=== PATIENT | female | born 1970 | race Caucasian/White ===

== ENCOUNTER 2016-05-23 21:35 | Emergency (ER) | payer MEDICAID ==
[~2016-05-23] VITALS: Ht 154.9 cm; Wt 65.8 kg
[~2016-05-23 21:35] MED LIST: ALBU17AE23 IH; ALBU17AE3; ALBU17AE3 IH; ALPR2TAB2; ALPR2TAB2 PO; ASP81TEC PO; BENZ100C18 PO; BP MED; BUSP15TA60; BUTA-234 PO; CEFP500T4 PO; CHOL4PAC19 PO; CYCL10TA9 PO; DIVA-20; DOXE150C; FAMO20TA5 PO; FAMO40TA6; HYDR-3720 PO; HYDR-690 PO; HYDR-757 PO; HYOS0.1217 PO; IBUP-1773 PO; LEVO500T69 PO; LIPA1CAP2 PO; LIPA1CAP26 PO; LIPA1CAP4 PO; METH20TA17; METH4TAB PO; MORP30CA15 PO; MORP30TA16 PO; NAPR-243 PO; NAPR500T PO; NEXIUM; NF-ESOM40C; NF-ESOM40C PO; NFCHLORT25 PO; OLN10T PO; OMEP20CA6; OMEP40CA36 PO; ONDA-42 SL; ONDAN4ODT PO; ORPH100T PO; OXYC-109 PO; OXYC10TA7 PO; OXYC1CAP3 PO; OXYC1TAB28 PO; OXYC20TA63 PO; OXYC40TA49 PO; PNT40TEC PO; POTA10CA16 PO; PRD20T PO; PRED20TA PO; PRM25T; PRM25T PO; PROM25SU10 RC; PROP10TA8 PO; PROP20TA23 PO; PROP60CA17 PO; Propanolol; QTP200T PO; SCR1T1; SCR1T1 PO; SULF1TAB35 PO; SULF1TAB38 PO; SUMA100T3 PO; SUMA5SPR NSEACH; TRAM50TA2 PO; TRM50T PO; ZPR40C; ZPR80C; [UNRECOGNIZED DRUG - CODE]; [UNRECOGNIZED DRUG - CODE]; [UNRECOGNIZED DRUG - REMARK]
--- OUTSIDE RECORDS SUMMARY | 2016-05-23 21:39 | XMS REPORT | Continuity of Care Document ---
Author Author [facility] Organization [facility] Address Unknown Phone Unavailable Care Team Providers Care Licensed Dispensing Optician Name Role Phone PCP Unavailable Source Comments Some departments are not documenting in the electronic medical record. If you do not see the information that you expected, contact Release of Information in the Health Information Management department at [phone] for further assistance in locating additional records.[facility] Active Allergies and Adverse Reactions Not on File Current Medications Not on file Active Problems Not on file Social History Tobacco Use Types Packs/Day Years Used Date Never Assessed Plan of Care Health Maintenance Due Date Last Done Comments Physical (Comprehensive) 1975 Exam Pertussis Vaccine 1979 Tetanus Vaccine 1985 Cervical Cancer Screening 1989 Breast Cancer Screening 2008 Influenza Vaccine 01/11/2016 Results from Last 3 Months Not on file
[2016-05-23] MEDS ORDERED: ONDA8TAB12 SL (21:46)
[2016-05-23] MEDS ORDERED: ATEN50TA PO (21:46)
[2016-05-23] MEDS ORDERED: VALA1000 PO (21:46)
[2016-05-23] MEDS ORDERED: ALPR1TAB2 PO (21:46)
[2016-05-23] MEDS ORDERED: LISI40TA PO (21:46)
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
[2016-05-23] MEDS ORDERED: NAPR500T3 PO (22:31)
[2016-05-23] MEDS ORDERED: RX-NAPROXEN (NAPROSYN) 250 MG TAB PPK#4 PO STA (22:31)
[2016-05-23] MEDS ORDERED: RX-NAPROXEN (NAPROSYN) 250 MG TAB PPK#4 PO ONE (22:38)
[2016-05-23 22:45] VITALS: BP 170/92
--- NOTE | 2016-05-24 07:33 | Diagnostic Imaging Report ---
3 views of the left ankle. INDICATION: Fall. FINDINGS: There is a tiny ossific density seen along the undersurface of the medial malleolus noted on the AP view that appears to have corticated margins and is favored to be related to an old injury. No definite acute fracture. No dislocation or radiopaque foreign body. Ankle mortise is normal in configuration. There is medial soft tissue swelling. When compared to 07/25/2014, stable findings are seen. IMPRESSION: No acute process. Dictated by: Dictated on workstation # [id number]
--- NOTE | 2016-05-24 07:38 | Diagnostic Imaging Report ---
AP and frog-lateral views of the left hip. INDICATION: Fall. FINDINGS: No fracture, dislocation or radiopaque foreign body. There are pelvic calcifications likely related to phleboliths. IMPRESSION: Unremarkable exam. Dictated by: Dictated on workstation # [id number]
--- NOTE | 2016-05-24 07:40 | Diagnostic Imaging Report ---
AP view of the pelvis. INDICATION: Fall. FINDINGS: No fracture, dislocation, or radiopaque foreign body. Pelvic calcifications are seen compatible with phleboliths. IMPRESSION: Unremarkable exam. Dictated by: Dictated on workstation # [id number]
--- NOTE | 2016-05-24 07:50 | Diagnostic Imaging Report ---
3 views of the right fourth finger. INDICATION: Fall. Extensive arthritic changes. FINDINGS: There is joint space narrowing and osteophyte formation involving the distal interphalangeal joints of all fingers. There is soft tissue swelling and joint space narrowing with subchondral sclerosis seen at the PIP joint. There is a nondisplaced fracture involving the head of the middle phalanx of the fourth digit. There is also question of a nondisplaced fracture of the distal aspect of the base of the middle phalanx of the fourth digit. No radiopaque foreign body. IMPRESSION: 1. Nondisplaced fracture along the radial aspect of the head of the middle phalanx in the right ring finger. There is question of another fracture along the base of the middle phalanx as well dorsally. 2. Prominent arthritic changes with soft tissue swelling around the PIP joint of the right fourth finger could be arthritic or related to injury. The fracture in the middle phalanx of the right ring finger was seen by Dr. Cunningham in the ER. Dictated by: Dictated on workstation # [id number]
--- NOTE | 2016-05-24 07:52 | Diagnostic Imaging Report ---
3 views of the lumbar spine. INDICATION: Fall. FINDINGS: There is a compression fracture at L1 vertebral body with 20% vertebral body height loss. This is similar to CT lumbar spine from 11/05/2013. There is no new compression fracture. The alignment of the posterior spinal line is satisfactory. The disc heights are preserved. The sacroiliac joints have normal alignment. There are mild anterior osteophytes seen around the thoracolumbar junction. Surgical clips in the upper right abdomen seen. IMPRESSION: Chronic L1 compression fracture. Dictated by: Dictated on workstation # [id number]
== END 2016-05-23 22:45 | disposition home or self-care (01) ==
LOC: EDUNIT# 21:35 → ER 21:36
DX: S62.644A Nondisplaced fracture of proximal phalanx of right ring finger, initial encounter for closed fracture (principal); S93.402A Sprain of unspecified ligament of left ankle, initial encounter; S39.012A Strain of muscle, fascia and tendon of lower back, initial encounter; I10 Essential (primary) hypertension; J44.9 Chronic obstructive pulmonary disease, unspecified; F17.210 Nicotine dependence, cigarettes, uncomplicated; W10.9XXA Fall (on) (from) unspecified stairs and steps, initial encounter; Y92.009 Unspecified place in unspecified non-institutional (private) residence as the place of occurrence of the external cause; Y99.8 Other external cause status
CPT/HCPCS: 72100; 72170; 73140; 73502; 73610

== ENCOUNTER → 2016-07-19 | Outpatient (CLI) | payer MEDICAID ==
[~2016-07-19] MED LIST changes: +ALPR1TAB2 PO; +ATEN50TA PO; +LISI40TA PO; +NAPR500T3 PO; +ONDA8TAB12 SL; +VALA1000 PO
--- OUTSIDE RECORDS SUMMARY | 2016-07-19 08:09 | XMS REPORT | Continuity of Care Document ---
Author Author [facility] Organization [facility] Address Unknown Phone Unavailable Care Team Providers Care Parking Control Officer Name Role Phone PCP Unavailable Source Comments Some departments are not documenting in the electronic medical record. If you do not see the information that you expected, contact Release of Information in the Health Information Management department at [phone] for further assistance in locating additional records.[facility] Active Allergies and Adverse Reactions [...]
[2016-07-19 08:39] LABS: BASOPHILS # (AUTO) 0.1 10^3/uL (0.0-0.1); BASOPHILS % (AUTO) 1 % (0-10); EOSINOPHILS # (AUTO) 0.1 10^3/uL (0.0-0.3); EOSINOPHILS % (AUTO) 1 % (0-10); LYMPHOCYTES # (AUTO) 4.3 X 10^3 (1.0-4.0); LYMPHOCYTES % (AUTO) 40 % (12-44); MEAN CORPUSCULAR HEMOGLOBIN 32 PG (25-34); MEAN CORPUSCULAR HGB CONC 34 G/DL (32-36); MEAN CORPUSCULAR VOLUME 93 FL (80-99); MEAN PLATELET VOLUME 9.7 FL (7.4-10.4); MONOCYTES # (AUTO) 0.9 X 10^3 (0.0-1.0); MONOCYTES % (AUTO) 8 % (0-12); NEUTROPHILS # (AUTO) 5.5 X 10^3 (1.8-7.8); NEUTROPHILS % (AUTO) 51 % (42-75); PLATELET COUNT 279 10^3/uL (130-400); RED BLOOD COUNT 4.88 10^6/uL (4.35-5.85); WHITE BLOOD COUNT 10.8 10^3/uL (4.3-11.0)
[2016-07-19 09:02] LABS: ALANINE AMINOTRANSFERASE 77 U/L (0-55); ALBUMIN 3.7 G/DL (3.2-4.5); ANION GAP 7 MMOL/L (5-14); ASPARTATE AMINO TRANSFERASE 57 U/L (5-34); BILIRUBIN,TOTAL 0.8 MG/DL (0.1-1.0); BLOOD UREA NITROGEN 16 MG/DL (7-18); BUN/CREATININE RATIO 21; CALCIUM 8.5 MG/DL (8.5-10.1); CARBON DIOXIDE 26 MMOL/L (21-32); CHLORIDE 105 MMOL/L (98-107); CHOLESTEROL 105 MG/DL (< 200); CREATININE SERUM 0.75 MG/DL (0.60-1.30); DIRECT LDL 54 MG/DL (1-129); GFR ESTIMATED > 60; GLUCOSE 107 MG/DL (70-105); POTASSIUM 4.2 MMOL/L (3.6-5.0); SODIUM 138 MMOL/L (135-145); TOTAL PROTEIN 7.5 G/DL (6.4-8.2); TRIGLYCERIDES 62 MG/DL (<150); VLDL CHOLESTEROL 12 MG/DL (5-40)
[2016-07-19 09:10] LABS: BAND NEUTROPHILS 0 %; BASOPHILS % (MANUAL) 0 %; EOSINOPHILS % (MANUAL) 0 %; LYMPHOCYTES % (MANUAL) 35 %; NEUTROPHILS % (MANUAL) 49 %; REACTIVE LYMPHOCYTES 12 %
== END ==
LOC: LAB 08:05
PROVIDERS: ATTEND Family Medicine
DX: I10 Essential (primary) hypertension (principal); M06.9 Rheumatoid arthritis, unspecified
CPT/HCPCS: 36415; 80053; 80061; 85007; 85027; 86430

== ENCOUNTER 2016-11-11 14:20 | Emergency (ER) | payer MEDICAID ==
[~2016-11-11] VITALS: Ht 154.9 cm; Wt 72.6 kg
[2016-11-11] MEDS ORDERED: NS IV 1000 ML 1,000 ML IV SCH (14:30)
[2016-11-11] MEDS ORDERED: diphenhydrAMINE 50 MG/ML INJ (BENADRYL) IVP ONE (14:30)
[2016-11-11] MEDS ORDERED: KETOROLAC 30 MG/ML VIAL IVP ONE (14:30)
[2016-11-11] MEDS ORDERED: PROCHLORPERAZINE 10 MG/2ML INJ (COMPAZINE) IV ONE (14:30)
--- NOTE | 2016-11-11 14:32 | ED Headache ---
General Stated Complaint: MIGRAINE Source: patient Exam Limitations: no limitations History of Present Illness Time seen by provider: 14:30 Initial Comments To ER with a left frontal headache for the past 3-4 days. No fevers or chills. No head injury. No neck pain. She does have a history of migraines and this feels similar to those. However, she does state that her blood pressure has been a little high in the 180/120 range. Timing/Duration: constant Severity/Quality: moderate Location: frontal Prior Headaches/Recent Trauma: occasional headaches Modifying Factors: worse with exposure to light Associated Symptoms: nausea/vomiting Allergies and Home Medications Allergies Coded Allergies: methotrexate (Unverified Allergy, Severe, SEIZURE, 12/25/09) nitrofurantoin (Unverified Allergy, Mild, 09/26/08) ziprasidone (Unverified Allergy, Mild, 08/23/09) aripiprazole (Verified Adverse Reaction, Intermediate, TONGUE SWELLING, ) Home Medications Alprazolam 1 Mg Tablet, 1 MG PO BID PRN for ANXIETY, (Reported) Atenolol 50 Mg Tablet, 50 MG PO DAILY, #30 (Reported) Lisinopril 40 Mg Tablet, 40 MG PO DAILY, #30 (Reported) Naproxen 500 Mg Tablet, 500 MG PO BID PRN for PAIN, #30 Prescribed by: HONORIO AGEE on 04/18/16 1601 Naproxen 500 Mg Tablet, 500 MG PO BID, #20 Prescribed by: KRIS WHALEN on 05/23/16 2231 Omeprazole 40 Mg Capsule.dr, 40 MG PO DAILY, #10 Prescribed by: HONORIO AGEE on 04/18/16 1601 Ondansetron HCl 8 Mg Tablet, 8 MG SL PRN PRN for NAUSEA, #30 (Reported) Valacyclovir HCl 1,000 Mg Tablet, 1,000 MG PO DAILY, #30 (Reported) Constitutional: see HPI Eyes: No Symptoms Reported Ears, Nose, Mouth, Throat: no symptoms reported Cardiovascular: no symptoms reported Genitourinary: no symptoms reported Musculoskeletal: no symptoms reported Skin: no symptoms reported Psychiatric/Neurological: See HPI, Headache Past Uewjuvp-Atnkpj-Vddvwo Hx Patient Social History Type Used: Cigarettes Recent Foreign Travel: No Contact w/Someone Who Travel: No Recent Hopitalizations: No Immunizations Up To Date Tetanus Booster (TDap): More than 5yrs PED Vaccines UTD: No Date of Influenza Vaccine: May 05, 2014 Seasonal Allergies Seasonal Allergies: No Surgeries HX Surgeries: Yes Surgeries: Adenoidectomy, Breast, Cardiac, Gallbladder, 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, Oophorectomy, Tonsillectomy, Vascular Surgery Respiratory Hx Respiratory Disorders: Yes (SPONTANEOUS RIGHT PNEUMOTHORAX) Respiratory Disorders: Pneumonia, Chronic Bronchitis, COPD Cardiovascular Hx Cardiac Disorders: Yes Cardiac Disorders: Hypertension Neurological Hx Neurological Disorders: Yes Neurological Disorders: Concussion, Headaches /Migraines, Seizure Disorder, Stroke, Traumatic Brain Injury 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 System Hx 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 Disorders: No Sexually 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 Disease: 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 Genitourinary Hx Genitourinary Disorders: Yes Genitourinary Disorders: Bladder Infection, Kidney Stones Gastrointestinal Hx Gastrointestinal Disorders: Yes (HEPATITIS C --NO TREATMENT) Gastrointestinal Disorders: Gastroesophageal Reflux, Liver Disease/Jaundice, Chronic Constipation, Pancreatitis, Chronic Diarrhea, Hepatitis, Ulcer Musculoskeletal Hx Musculoskeletal Disorders: Yes Musculoskeletal Disorders: Degenerate Disk Disease, Arthritis, Fibromyalgia, Rheumatoid Arthritis, Back Injury, Chronic Back Pain, Fractures Endocrine Hx Endocrine Disorders: No HEENT HX ENT Disorders: Yes (TEETH REMOVED) Cancer Hx Cancer: No Psychosocial Hx Psychiatric Problems: Yes Behavioral Health Disorders: Anxiety, Bipolar, Depression Integumentary HX Skin/Integumentary Disorder: No Blood Transfusions Hx Blood Disorders: No Physical Exam Vital Signs Vital Sign - Last 12Hours 11/11/16 14:42 Temp 98.1 Pulse 101 Resp 16 B/P (MAP) 180/104 Pulse Ox 94 Capillary Refill : General Appearance: WD/WN, no apparent distress HEENT: PERRL/EOMI, normal ENT inspection Neck: non-tender, full range of motion Cardiovascular: regular rate, rhythm, no murmur Respiratory: normal breath sounds, no respiratory distress, no accessory muscle use Gastrointestinal: normal bowel sounds, non tender, soft Extremities: normal range of motion, non-tender Psychiatric: alert, oriented x 3 Crainal Nerves: normal hearing, normal speech, PERRL Motor/Sensory: no motor deficit, no sensory deficit Skin: normal color, warm/dry Progress/Results/Core Measures Results/Orders My Orders Orders - HONORIO AGEE APRN Ct Head Wo (11/11/16 14:28) Saline Lock/Iv-Start (11/11/16 14:28) Ns Iv 1000 Ml (Sodium Chloride 0.9%) (11/11/16 14:30) Ketorolac Injection (Toradol Injection) (11/11/16 14:30) Diphenhydramine Injection (Benadryl Inje (11/11/16 14:30) Prochlorperazine Injection (Compazine In (11/11/16 14:30) Clonidine Tablet (Catapres Tablet) (11/11/16 14:45) Medications Given in ED Current Medications Medications Dose Ordered Sig/Rene Route Start Time Stop Time Status Last Admin Dose Admin Clonidine HCl 0.2 mg ONCE ONCE PO 11/11/16 14:45 11/11/16 14:46 DC 11/11/16 15:00 0.2 MG Diphenhydramine HCl 25 mg ONCE ONCE IVP 11/11/16 14:30 11/11/16 14:31 DC 11/11/16 15:07 25 MG Ketorolac Tromethamine 30 mg ONCE ONCE IVP 11/11/16 14:30 11/11/16 14:31 DC 11/11/16 15:00 30 MG Prochlorperazine Edisylate 5 mg ONCE ONCE IV 11/11/16 14:30 11/11/16 14:31 DC 11/11/16 15:00 5 MG Vital Signs/I&O Vital Sign - Last 12Hours 11/11/16 14:42 Temp 98.1 Pulse 101 Resp 16 B/P (MAP) 180/104 Pulse Ox 94 Diagnostic Imaging Diagonstic Imaging: CT Comments NAME: TRAVIS MOISE [facility] REC#: [id number] PT STATUS: REG ER : 1970 PHYSICIAN: HONORIO AGEE LOCOMOTIVE CRANE ENGINEER ADMIT DATE: 11/11/16/ER Signed Date of Exam:11/11/16 CT HEAD WO PROCEDURE: CT head without contrast. TECHNIQUE: Multiple contiguous axial images were obtained through the brain without the use of intravenous contrast. INDICATION: Severe headache. FINDINGS: There is encephalomalacia in the posterior right frontal region and adjacent portion of the right basal ganglia, suggestive of an old right MCA distribution infarct. There is no intracranial hemorrhage, edema, or mass effect. No hydrocephalus. No extra-axial fluid collection is seen. The calvarium and orbits appear unremarkable. A minimal amount of secretions is seen in the maxillary sinuses of uncertain significance. IMPRESSION: No acute process. Dictated by: Dictated on workstation # [id number] Dict: 11/11/16 1456 Trans: 11/11/16 1506 [id number] Interpreted by: ARIEL CHACON MD Electronically signed by: ARIEL CHACON MD 11/11/16 1506 Departure Impression Impression: Primary Impression: Headache Additional Impression: Hypertension Disposition: 01 HOME, SELF-CARE Condition: Improved Departure-Patient Inst. Decision time for Depature: 14:57 Referrals: MILLICENT BARNEY DO (PCP) Primary Care Physician ALBERT TIAN MD (Family) Primary Care Physician Patient Instructions: Headache, Adult (DC) Add. Discharge Instructions: 1. See your doctor next week 2. Return to ER for any worsening symptoms 3. HONORIO AGEE APRN Nov 11, 2016 14:32
[2016-11-11] MEDS ORDERED: cloNIDine 0.2 MG (CATAPRES) TAB PO ONE (14:45)
--- NOTE | 2016-11-11 15:06 | Diagnostic Imaging Report ---
PROCEDURE: CT head without contrast. TECHNIQUE: Multiple contiguous axial images were obtained through the brain without the use of intravenous contrast. INDICATION: Severe headache. FINDINGS: There is encephalomalacia in the posterior right frontal region and adjacent portion of the right basal ganglia, suggestive of an old right MCA distribution infarct. There is no intracranial hemorrhage, edema, or mass effect. No hydrocephalus. No extra-axial fluid collection is seen. The calvarium and orbits appear unremarkable. A minimal amount of secretions is seen in the maxillary sinuses of uncertain significance. IMPRESSION: No acute process. Dictated by: Dictated on workstation # [id number]
[2016-11-11 15:50] VITALS: BP 134/65
--- OUTSIDE RECORDS SUMMARY | 2016-11-13 14:51 | XMS REPORT | Continuity of Care Document ---
Author Author [facility] Organization [facility] Address Unknown Phone Unavailable Care Team Providers Care Medical Technologist Chemistry Name Role Phone PCP Unavailable Source Comments Some departments are not documenting in the electronic medical record. If you do not see the information that you expected, contact Release of Information in the Health Information Management department at [phone] for further assistance in locating additional records.[facility] Active Allergies and Adverse Reactions Not on File Current Medications Not on file Active Problems Not on file Social History Tobacco Use Types Packs/Day Years Used Date Never Assessed Plan of Care Health Maintenance Due Date Last Done Comments Physical (Comprehensive) 1975 Exam Pertussis Vaccine 1979 Tetanus Vaccine 1985 Cervical Cancer Screening 1989 Breast Cancer Screening 2008 Influenza Vaccine 01/10/2017 Results from Last 3 Months Not on file
--- OUTSIDE RECORDS SUMMARY | 2016-11-13 14:52 | XMS REPORT ---
Author LUZMARIA Soto [facility] [employer] Address Unknown Phone Unavailable Care Team Providers Care Estate Manager Name Role Phone LUZMARIA SUÁREZ CP Unavailable Allergies, Adverse Reactions, Alerts Substance Reaction Event Type Macrobid Info Not Available Drug Allergy Problems Problem Type Condition Code Onset Dates Condition Status Assessment Chronic hepatitis C B18.2 Active Problem Methamphetamine abuse F15.10 Active Assessment Essential hypertension I10 Active Problem Essential hypertension I10 Active Problem Chronic hepatitis C B18.2 Active Problem Arthralgia, unspecified joint M25.50 Active Problem Anxiety F41.9 Active Problem 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 Active Problem Bilateral low back pain, with sciatica presence unspecified M54.5 Active Problem Chronic obstructive pulmonary disease, unspecified COPD type J44.9 Active Assessment Simple chronic bronchitis J41.0 Active Assessment Methamphetamine abuse F15.10 Active Assessment Anxiety F41.9 Active Assessment Chronic obstructive pulmonary disease, unspecified COPD type J44.9 Active Assessment Hemorrhoids, unspecified hemorrhoid type K64.9 Active Assessment Arthralgia, unspecified joint M25.50 Active Medications Medication Code System Code Instructions Start Date End Date Status Dosage Anusol-HC [facility] [address]-50 2.5 % Rectal 4 times a day 1 application to affected area Proventil HFA [facility] [id number] 108 (90 Base) MCG/ACT Inhalation every 4 hrs November 30, 2015 2 puffs as needed Lisinopril [facility] [address]-28 40 mg Orally Once a day November 30, 2015 1 tablet BusPIRone HCl [facility] [address]-81 15 MG Orally Twice a day October 13, 2014 1 tablet Atenolol [facility] [address]-88 50 mg Orally Once a day November 30, 2015 1 tablet Procedures Procedure Coding System Code Date DRUG SCREEN NON TLC DEVICES CPT-4 22126 November 30, 2015 Office Visit, Est Pt., Level 4 CPT-4 57274 November 30, 2015 CHEST X-RAY CPT-4 68212 November 30, 2015 Vital Signs Date/Time: November 30, 2015 Cardiac Monitoring Heart Rate 90 bpm Weight 160 lbs Height 60 in Blood Pressure Diastolic 100 mmHg Blood Pressure Systolic 179 mmHg Results No Known Results Summary Purpose [employer]ClinicalWorks Submission
--- OUTSIDE RECORDS SUMMARY | 2016-11-13 14:52 | XMS REPORT ---
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
--- OUTSIDE RECORDS SUMMARY | 2016-11-13 14:52 | XMS REPORT ---
Author Author KIMBERLYN MOISE Organization [employer] Address Unknown Phone Unavailable Care Team Providers Care Photographer'S Model Name Role Phone KIMBERLYN MOISE CP Unavailable Allergies No Known Allergies Problems Problem Type Condition Code Onset Dates Condition Status Problem Methamphetamine abuse F15.10 Active Problem Essential hypertension I10 Active Problem Chronic hepatitis C B18.2 Active Problem Arthralgia, unspecified joint M25.50 Active Problem Anxiety F41.9 Active Problem 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 Active Problem Bilateral low back pain, with sciatica presence unspecified M54.5 Active Problem Chronic obstructive pulmonary disease, unspecified COPD type J44.9 Active Medications No Known Medications Vital Signs Date/Time: November 30, 2015 Blood Pressure Systolic 176 mmHg Cardiac Monitoring Heart Rate 108 bpm Height 60 in Blood Pressure Diastolic 122 mmHg Results No Known Results Summary Purpose eClinicalWorks Submission
--- OUTSIDE RECORDS SUMMARY | 2016-11-13 14:52 | XMS REPORT ---
Author Author ALBERT TIAN Organization [employer] Address Unknown Phone Unavailable Care Team Providers Care Medical Clerical Assistant Name Role Phone ALBERT TIAN CP Unavailable [...] Lumbago 724.2 Active Medications No Known Medications Procedures Procedure Coding System Code Date GLUCOSE BLOOD TEST CPT-4 65939 Feb 21, 2015 Results Name Result Date Reference Range Unit Abnormality Flag GLUCOSE FINGERSTICK (IN HOUSE) Summary Purpose eClinicalWorks Submission
== END 2016-11-11 15:50 | disposition home or self-care (01) ==
LOC: EDUNIT# 14:20 → ER 14:22
DX: G43.909 Migraine, unspecified, not intractable, without status migrainosus (principal); I10 Essential (primary) hypertension; F31.9 Bipolar disorder, unspecified; F41.9 Anxiety disorder, unspecified; M47.9 Spondylosis, unspecified; K21.9 Gastro-esophageal reflux disease without esophagitis; K59.09 Other constipation; K52.9 Noninfective gastroenteritis and colitis, unspecified; J44.9 Chronic obstructive pulmonary disease, unspecified; Z90.89 Acquired absence of other organs; Z86.73 Personal history of transient ischemic attack (TIA), and cerebral infarction without residual deficits; Z90.710 Acquired absence of both cervix and uterus; Z90.49 Acquired absence of other specified parts of digestive tract
CPT/HCPCS: 70450; 96361; 96374; 96375

== ENCOUNTER 2016-12-04 13:21 | Emergency (ER) | payer MEDICAID ==
[~2016-12-04] VITALS: Ht 154.9 cm; Wt 74.8 kg
[2016-12-04 14:16] VITALS: BP 128/70
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
== END 2016-12-04 14:16 | disposition home or self-care (01) ==
LOC: EDUNIT# 13:21 → ER 13:24
DX: Z45.2 Encounter for adjustment and management of vascular access device (principal); F31.9 Bipolar disorder, unspecified; F41.9 Anxiety disorder, unspecified; M47.9 Spondylosis, unspecified; M06.9 Rheumatoid arthritis, unspecified; K21.9 Gastro-esophageal reflux disease without esophagitis; B19.20 Unspecified viral hepatitis C without hepatic coma; G43.909 Migraine, unspecified, not intractable, without status migrainosus; G40.909 Epilepsy, unspecified, not intractable, without status epilepticus; J44.9 Chronic obstructive pulmonary disease, unspecified; Z90.89 Acquired absence of other organs; Z98.890 Other specified postprocedural states; Z86.73 Personal history of transient ischemic attack (TIA), and cerebral infarction without residual deficits; Z90.710 Acquired absence of both cervix and uterus; Z87.442 Personal history of urinary calculi; Z98.818 Other dental procedure status
CPT/HCPCS: 99283

== ENCOUNTER → 2017-04-25 | Outpatient (CLI) | payer MEDICAID ==
[~2017-04-25] MED LIST changes: +NAPR-1071 PO; -NAPR500T PO; -NAPR500T3 PO; +NAPR500T4 PO
--- NOTE | 2017-04-28 13:17 | Diagnostic Imaging Report ---
Bilateral screening mammogram 2D views with tomosynthesis. The current study was also evaluated with a Computer Aided Detection (CAD) system. INDICATION: Screening. No current complaints stated on the questionnaire. COMPARISON: 06/03/2008. FINDINGS: The breasts are composed of scattered fibroglandular densities. No mass, architectural distortion or suspicious cluster of calcifications seen. Allowing for technique and positional differences, no suspicious change is seen. IMPRESSION: No significant change. ACR BI-RADS Category 2: Benign findings. Result letter will be mailed to the patient. Note: At least 10% of breast cancer is not imaged by mammography. Dictated by: Dictated on workstation # [id number]
== END ==
LOC: RAD 09:36
PROVIDERS: ATTEND Family Medicine
DX: Z12.31 Encounter for screening mammogram for malignant neoplasm of breast (principal)
CPT/HCPCS: 77067

== ENCOUNTER → 2017-05-02 | Outpatient (CLI) | payer MEDICAID ==
[2017-05-05 20:53] LABS: TB GOLD MITOGEN-NIL VALUE >10.00 IU/mL (0.50-10.00); TB GOLD QUANTIFERON INTERP Negative (Negative)
[2017-05-06 06:49] LABS: TB GOLD NIL VALUE 0.03 IU/mL (0.00-7.99); TB GOLD TB ANTIGEN-NIL VALUE 0.01 IU/mL (0.00-0.34)
== END ==
LOC: LAB 10:41
PROVIDERS: ATTEND Internal Medicine Rheumatology
DX: Z51.81 Encounter for therapeutic drug level monitoring (principal); Z79.899 Other long term (current) drug therapy
CPT/HCPCS: 36415; 86480

== ENCOUNTER 2017-06-23 12:00 | Emergency (ER) | payer MEDICAID ==
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
--- OUTSIDE RECORDS SUMMARY | 2017-06-26 12:30 | XMS REPORT | Clinical Summary ---
Author Author [facility] Organization [facility] Address Unknown Phone Unavailable Care Team Providers Care J2Ee Java Developer Name Role Phone PCP Unavailable Source Comments Some departments are not documenting in the electronic medical record. If you do not see the information that you expected, contact Release of Information in the Health Information Management department at [phone] for further assistance in locating additional records.[facility] Allergies Not on File Current Medications Not on file Active Problems Not on file Social History Tobacco Use Types Packs/Day Years Used Date Never Assessed Sex Assigned at Date Recorded Not on file Last Filed Vital Signs Not on file Plan of Treatment Health Maintenance Due Date Last Done Comments PHYSICAL (COMPREHENSIVE) 1975 EXAM PERTUSSIS VACCINE 1979 TETANUS VACCINE 1985 CERVICAL CANCER SCREENING 1998 BREAST CANCER SCREENING 2008 INFLUENZA VACCINE 12/10/2016 Results Not on filefrom Last 3 Months
--- OUTSIDE RECORDS SUMMARY | 2017-06-26 12:30 | XMS REPORT ---
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 Active 189796311453307 Problem Depressive disorder, not elsewhere classified F32.9 Active 89143991 Problem Rheumatoid arthritis flare M06.9 Active 102154892 Problem Gastroesophageal reflux disease without esophagitis K21.9 Active 000500568 Problem Panic attacks F41.0 Active 187913162 Problem Seasonal allergic rhinitis, unspecified allergic rhinitis trigger J30.2 Active 093271797 Problem Insomnia due to medical condition G47.01 Active 91116958 Problem 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 Active 30276199 Problem Chronic obstructive pulmonary disease, unspecified COPD type J44.9 Active 08433542 Problem Chronic hepatitis C B18.2 Active 538524231 Problem Essential hypertension I10 Active 21898746 Problem Bilateral low back pain, with sciatica presence unspecified M54.5 Active 908734262 Problem Anxiety F41.9 Active 04201532 Problem Methamphetamine abuse F15.10 Active 336476005 Problem Other chronic pain G89.29 Active 24268352 ALLERGIES No Information SOCIAL HISTORY Never Assessed PLAN OF CARE VITAL SIGNS MEDICATIONS Medication Instructions Dosage Frequency Start Date End Date Duration Status Mobic 7.5 MG Orally Once a day 1 tablet 24h Jul, Active RESULTS No Results PROCEDURES No Known procedures [...]
--- OUTSIDE RECORDS SUMMARY | 2017-06-26 12:30 | XMS REPORT ---
Author Author JAYLAN ALBERT Organization 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 Active 736191964554646 Problem Depressive disorder, not elsewhere classified F32.9 Active 25057115 Problem Rheumatoid arthritis flare M06.9 Active 389577778 Problem Gastroesophageal reflux disease without esophagitis K21.9 Active 985936994 Problem Panic attacks F41.0 Active 994395485 Problem Seasonal allergic rhinitis, unspecified allergic rhinitis trigger J30.2 Active 674436760 Problem Insomnia due to medical condition G47.01 Active 88474390 Problem 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 Active 82262277 Problem Chronic obstructive pulmonary disease, unspecified COPD type J44.9 Active 11278753 Problem Chronic hepatitis C B18.2 Active 260426130 Problem Essential hypertension I10 Active 04341021 Problem Bilateral low back pain, with sciatica presence unspecified M54.5 Active 545186520 Problem Anxiety F41.9 Active 51187610 Problem Methamphetamine abuse F15.10 Active 463320989 Problem Other chronic pain G89.29 Active 83183079 ALLERGIES No Information SOCIAL HISTORY Never Assessed PLAN OF CARE VITAL SIGNS MEDICATIONS Unknown Medications RESULTS No Results PROCEDURES Procedure Date Ordered Result Body Site PULMONARY FUNCTION TEST (IN-HOUSE) 2016-10-10 Normal RESPIRATORY FLOW VOLUME LOOP October 10, 2016 SPIROMETRY October 10, 2016 NEB/MDI DEMO October 10, 2016 IMMUNIZATIONS No Known Immunizations MEDICAL (GENERAL) HISTORY [...]
--- OUTSIDE RECORDS SUMMARY | 2017-06-26 12:30 | XMS REPORT ---
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 Active 626013997029128 Problem Depressive disorder, not elsewhere classified F32.9 Active 37765162 Problem Rheumatoid arthritis flare M06.9 Active 057459307 Problem Gastroesophageal reflux disease without esophagitis K21.9 Active 174938795 Problem Panic attacks F41.0 Active 204875874 Problem Seasonal allergic rhinitis, unspecified allergic rhinitis trigger J30.2 Active 314768944 Problem Insomnia due to medical condition G47.01 Active 81443902 Problem 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 Active 62500867 Problem Chronic obstructive pulmonary disease, unspecified COPD type J44.9 Active 55322635 Problem Chronic hepatitis C B18.2 Active 641285554 Problem Essential hypertension I10 Active 99284506 Problem Bilateral low back pain, with sciatica presence unspecified M54.5 Active 908775900 Problem Anxiety F41.9 Active 76010233 Problem Methamphetamine abuse F15.10 Active 450202906 Problem Other chronic pain G89.29 Active 15570179 ALLERGIES Substance Reaction Event Type Date Status Macrobid Unknown Drug Allergy Jul, Active SOCIAL HISTORY Never Assessed PLAN OF CARE Activity Details Follow Up prn Reason: VITAL SIGNS Height 60 in 2016-07-30 Weight 165.0 lbs 2016-07-30 Temperature 98.3 degrees Fahrenheit 2016-07-30 Heart Rate 82 bpm 2016-07-30 Respiratory Rate 20 2016-07-30 BMI 32.22 kg/m2 2016-07-30 Blood pressure systolic 182 mmHg 2016-07-30 Blood pressure diastolic 112 mmHg 2016-07-30 MEDICATIONS Medication Instructions Dosage Frequency Start Date End Date Duration Status Omeprazole 40 MG Orally Once a day 1 capsule 24h May, 30 day(s ) Active Hydrochlorothiazide 25 MG Orally Once a day 1 tablet 24h Jul, 30 day(s) Active Proventil HFA 108 (90 Base) MCG/ACT Inhalation every 4 hrs 2 puffs as needed 4h Nov, Active Zofran 8 MG Orally 3 times a day 1 tablet 8h Mar, Active Lisinopril 40 mg Orally Once a day 1 tablet 24h Nov, Active Zyrtec Allergy 10 MG Orally Once a day 1 tablet 24h Jul, Aug, 30 day(s) Active PredniSONE 20 MG Orally Once a day 2 tablet 24h Jul, Jul, 5 days Active Excedrin Migraine 250-250-65 MG Orally every 6 hrs 2 tablets as needed 6h Active Atenolol 50 mg Orally Once a day 1 tablet 24h Nov, Active Sertraline HCl 25 MG Orally Once a day 1 tablet 24h Jun, 30 day (s) Active Debrox 6.5 % as directed Oct, Active Acyclovir 400 MG Orally Twice a day 1 tablet 12h Oct, 90 days Active Mobic 7.5 MG Orally Once a day 1 tablet 24h Jul, Active Fluticasone Propionate 50 MCG/ACT Nasally Twice a day 1 spray in each nostril 12h Jul, 30 day(s) Active RESULTS No Results PROCEDURES No Known [...]
--- OUTSIDE RECORDS SUMMARY | 2017-06-26 12:30 | XMS REPORT ---
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 Active 544512846441299 Problem Depressive disorder, not elsewhere classified F32.9 Active 99158827 Problem Rheumatoid arthritis flare M06.9 Active 430092659 Problem Gastroesophageal reflux disease without esophagitis K21.9 Active 555742003 Problem Panic attacks F41.0 Active 295543297 Problem Seasonal allergic rhinitis, unspecified allergic rhinitis trigger J30.2 Active 303890743 Problem Insomnia due to medical condition G47.01 Active 18812737 Problem 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 Active 72043714 Problem Chronic obstructive pulmonary disease, unspecified COPD type J44.9 Active 48279553 Problem Chronic hepatitis C B18.2 Active 469330587 Problem Essential hypertension I10 Active 24636644 Problem Bilateral low back pain, with sciatica presence unspecified M54.5 Active 368924461 Problem Anxiety F41.9 Active 70399949 Problem Methamphetamine abuse F15.10 Active 137703480 Problem Other chronic pain G89.29 Active 28431781 ALLERGIES Substance Reaction Event Type Date Status Macrobid Unknown Drug Allergy May, Active SOCIAL HISTORY No smoking Hx information available PLAN OF CARE Activity Details Follow Up prn Reason: VITAL SIGNS Height 60 in 2016-05-28 Weight 163.4 lbs 2016-05-28 Temperature 97.6 degrees Fahrenheit 2016-05-28 Heart Rate 84 bpm 2016-05-28 Respiratory Rate 18 2016-05-28 BMI 31.91 kg/m2 2016-05-28 Blood pressure systolic 138 mmHg 2016-05-28 Blood pressure diastolic 90 mmHg 2016-05-28 MEDICATIONS Medication Instructions Dosage Frequency Start Date End Date Duration Status Atenolol 50 mg Orally Once a day 1 tablet 24h Nov, 30 day(s) Active Zofran ODT 4 MG Orally every 8 hrs 1 tablet on the tongue and allow to dissolve, as needed 8h Active Anusol-HC 2.5 % Rectal 4 times a day 1 application to affected area 6h Active Valtrex 1 GM Orally every 24 hrs 1 tablet Mar, Active Debrox 6.5 % as directed Oct, Active MiraLax - Orally Once a day 17 gm in 8 oz water 24h May, May, 10 days Active ProAir HFA 108 (90 Base) MCG/ACT INHALE 2 PUFFS BY INHALATION ROUTE EVERY 4 HOURS NEEDED Active Zofran 8 MG Orally 3 times a day 1 tablet 8h Mar, Active Omeprazole 40 MG Orally Once a day 1 capsule 24h May, 30 day(s ) Active Tramadol HCl 50 mg Orally every 6 hrs 1 tablet as needed 6h Mar, Active BusPIRone HCl 15 MG Orally Twice a day 1 tablet 12h Oct, 30 days Active Lisinopril 40 mg Orally Once a day 1 tablet 24h Nov, 30 day(s) Active Proctosol HC 2.5 % Rectal Twice a day 1 application to affected area 12h Mar, Jun, 30 day(s) Active Acyclovir 400 MG Orally 3 times a day 1 tablet 8h Oct, 05 days Active Proventil HFA 108 (90 Base) MCG/ACT Inhalation every 4 hrs 2 puffs as needed 4h Nov, Active Excedrin Migraine 250-250-65 MG Orally every 6 hrs 2 tablets as needed 6h Active RESULTS Name Result Date Reference Range UA LONG DIP (IN HOUSE) 2016-05-28 Lot # [id number] Exp date 2017 Clarity clear Color yellow Odor none GLU negative HARIS negative KET negative SG 1.025 BLO trace pH 6.5 Protein trace URO 1.0 NIT negative HELEN negative Lot # [id number] Exp date 2017 06 Xray : Abdomen 2v (Upright, KUB) - IN HOUSE 2016-05-28 PROCEDURES Procedure Date Ordered Related Diagnosis Body Site X-RAY EXAM OF ABDOMEN May 28, 2016 URINALYSIS, AUTO, W/O SCOPE May 28, 2016 Office Visit, Est Pt., Level 3 May 28, 2016 IMMUNIZATIONS No Known Immunizations
--- OUTSIDE RECORDS SUMMARY | 2017-06-26 12:30 | XMS REPORT ---
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 Active 981109678555434 Problem Depressive disorder, not elsewhere classified F32.9 Active 44389980 Problem Rheumatoid arthritis flare M06.9 Active 536447437 Problem Gastroesophageal reflux disease without esophagitis K21.9 Active 041225370 Problem Panic attacks F41.0 Active 015746840 Problem Seasonal allergic rhinitis, unspecified allergic rhinitis trigger J30.2 Active 626464281 Problem Insomnia due to medical condition G47.01 Active 75575282 Problem 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 Active 85181824 Problem Chronic obstructive pulmonary disease, unspecified COPD type J44.9 Active 28797746 Problem Chronic hepatitis C B18.2 Active 570902021 Problem Essential hypertension I10 Active 99242446 Problem Bilateral low back pain, with sciatica presence unspecified M54.5 Active 720812649 Problem Anxiety F41.9 Active 97037624 Problem Methamphetamine abuse F15.10 Active 187630646 Problem Other chronic pain G89.29 Active 84394535 ALLERGIES Substance Reaction Event Type Date Status Macrobid Unknown Drug Allergy Jun, Active SOCIAL HISTORY Never Assessed PLAN OF CARE Activity Details Follow Up 4 Weeks Reason:Labs/pain VITAL SIGNS Height 60 in 2016-06-18 Weight 156.5 lbs 2016-06-18 Temperature 98.5 degrees Fahrenheit 2016-06-18 Heart Rate 76 bpm 2016-06-18 Respiratory Rate 18 2016-06-18 BMI 30.56 kg/m2 2016-06-18 Blood pressure systolic 110 mmHg 2016-06-18 Blood pressure diastolic 74 mmHg 2016-06-18 MEDICATIONS Medication Instructions Dosage Frequency Start Date End Date Duration Status Omeprazole 40 MG Orally Once a day 1 capsule 24h May, 30 day(s ) Active Proctosol HC 2.5 % Rectal Twice a day 1 application to affected area 12h Mar, Jun, 30 day(s) Active Acyclovir 400 MG Orally Twice a day 1 tablet 12h Oct, 90 days Active Sertraline HCl 25 MG Orally Once a day 1 tablet 24h Jun, 30 day (s) Active Excedrin Migraine 250-250-65 MG Orally every 6 hrs 2 tablets as needed 6h Active Proventil HFA 108 (90 Base) MCG/ACT Inhalation every 4 hrs 2 puffs as needed 4h Nov, Active Zofran 8 MG Orally 3 times a day 1 tablet 8h Mar, Active Lisinopril 40 mg Orally Once a day 1 tablet 24h Nov, 90 days Active Debrox 6.5 % as directed Oct, Active Atenolol 50 mg Orally Once a day 1 tablet 24h Nov, 90 days Active Naproxen 500 MG Orally every 12 hrs 1 tablet as needed 12h May, Jun, 15 days Active RESULTS Name Result Date Reference Range Xray : Spine, Thoracic 2 views (IN HOUSE) 2016-06-18 CMP (OUTSIDE LAB) 2016-07-19 RA (RHEUMATOID) FACTOR RA Latex Turbid. CBC W/ MANUAL DIFF (OUTSIDE LAB) LIPID (OUTSIDE LAB) PROCEDURES Procedure Date Ordered Result Body Site X-RAY EXAM OF THORACIC SPINE Jun 18, 2016 LAB NOT BILLED BY [facility] Jun 18, 2016 IMMUNIZATIONS No Known Immunizations MEDICAL (GENERAL) [...]
--- OUTSIDE RECORDS SUMMARY | 2017-06-26 12:31 | XMS REPORT ---
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 Active 455358940217395 Problem Depressive disorder, not elsewhere classified F32.9 Active 84054627 Problem Rheumatoid arthritis flare M06.9 Active 628731125 Problem Gastroesophageal reflux disease without esophagitis K21.9 Active 304718172 Problem Panic attacks F41.0 Active 460389228 Problem Seasonal allergic rhinitis, unspecified allergic rhinitis trigger J30.2 Active 537986179 Problem Insomnia due to medical condition G47.01 Active 27364340 Problem 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 Active 00383038 Problem Chronic obstructive pulmonary disease, unspecified COPD type J44.9 Active 23057471 Problem Chronic hepatitis C B18.2 Active 219887346 Problem Essential hypertension I10 Active 72314482 Problem Bilateral low back pain, with sciatica presence unspecified M54.5 Active 957812060 Problem Anxiety F41.9 Active 65332503 Problem Methamphetamine abuse F15.10 Active 517896730 Problem Other chronic pain G89.29 Active 15364791 ALLERGIES No Information SOCIAL HISTORY Never Assessed [...] Medical History Hepatitis C Surgical History hysterectomy 1992 Surgical History lumpectomy, left breast Surgical History cholecystectomy Hospitalization History Hospitalization for surgery only
--- OUTSIDE RECORDS SUMMARY | 2017-06-26 12:31 | XMS REPORT ---
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 Active 204307588114346 Problem Depressive disorder, not elsewhere classified F32.9 Active 99101377 Problem Rheumatoid arthritis flare M06.9 Active 320702922 Problem Gastroesophageal reflux disease without esophagitis K21.9 Active 602051437 Problem Panic attacks F41.0 Active 561066509 Problem Seasonal allergic rhinitis, unspecified allergic rhinitis trigger J30.2 Active 268966956 Problem Insomnia due to medical condition G47.01 Active 65859404 Problem 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 Active 37987296 Problem Chronic obstructive pulmonary disease, unspecified COPD type J44.9 Active 13397129 Problem Chronic hepatitis C B18.2 Active 263027921 Problem Essential hypertension I10 Active 11502172 Problem Bilateral low back pain, with sciatica presence unspecified M54.5 Active 688293694 Problem Anxiety F41.9 Active 59272849 Problem Methamphetamine abuse F15.10 Active 747637087 Problem Other chronic pain G89.29 Active 50319183 ALLERGIES No Information SOCIAL HISTORY Never Assessed [...]
--- OUTSIDE RECORDS SUMMARY | 2017-06-26 12:31 | XMS REPORT ---
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 Active 424108405304288 Problem Depressive disorder, not elsewhere classified F32.9 Active 26041119 Problem Rheumatoid arthritis flare M06.9 Active 952024832 Problem Gastroesophageal reflux disease without esophagitis K21.9 Active 222903004 Problem Panic attacks F41.0 Active 510284889 Problem Seasonal allergic rhinitis, unspecified allergic rhinitis trigger J30.2 Active 757500590 Problem Insomnia due to medical condition G47.01 Active 52297142 Problem 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 Active 40577358 Problem Chronic obstructive pulmonary disease, unspecified COPD type J44.9 Active 66521959 Problem Chronic hepatitis C B18.2 Active 946755265 Problem Essential hypertension I10 Active 15616133 Problem Bilateral low back pain, with sciatica presence unspecified M54.5 Active 239407706 Problem Anxiety F41.9 Active 40463647 Problem Methamphetamine abuse F15.10 Active 002665017 Problem Other chronic pain G89.29 Active 47078809 ALLERGIES No Information SOCIAL HISTORY Never Assessed PLAN OF CARE VITAL SIGNS Height 60 in 2016-07-16 Blood pressure systolic 126 mmHg 2016-07-16 Blood pressure diastolic 88 mmHg 2016-07-16 MEDICATIONS Unknown Medications RESULTS No Results PROCEDURES [...]
--- OUTSIDE RECORDS SUMMARY | 2017-06-26 12:31 | XMS REPORT ---
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 Active 297373617508064 Problem Depressive disorder, not elsewhere classified F32.9 Active 75643556 Problem Rheumatoid arthritis flare M06.9 Active 230093983 Problem Gastroesophageal reflux disease without esophagitis K21.9 Active 891576835 Problem Panic attacks F41.0 Active 316673011 Problem Seasonal allergic rhinitis, unspecified allergic rhinitis trigger J30.2 Active 276088867 Problem Insomnia due to medical condition G47.01 Active 45919996 Problem 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 Active 69008599 Problem Chronic obstructive pulmonary disease, unspecified COPD type J44.9 Active 39056903 Problem Chronic hepatitis C B18.2 Active 128057605 Problem Essential hypertension I10 Active 32120600 Problem Bilateral low back pain, with sciatica presence unspecified M54.5 Active 048063318 Problem Anxiety F41.9 Active 89877492 Problem Methamphetamine abuse F15.10 Active 836915563 Problem Other chronic pain G89.29 Active 16630350 ALLERGIES Substance Reaction Event Type Date Status Macrobid Unknown Drug Allergy Jul, Active SOCIAL HISTORY Never Assessed PLAN OF CARE Activity Details Follow Up 4 Weeks for visit, 4-5 days for BP check Reason:HTN/Pain VITAL SIGNS Height 60 in 2016-07-12 Weight 166 lbs 2016-07-12 Temperature 98.6 degrees Fahrenheit 2016-07-12 Heart Rate 90 bpm 2016-07-12 Respiratory Rate 20 2016-07-12 BMI 32.42 kg/m2 2016-07-12 Blood pressure systolic 160 mmHg 2016-07-12 Blood pressure diastolic 110 mmHg 2016-07-12 MEDICATIONS Medication Instructions Dosage Frequency Start Date End Date Duration Status Debrox 6.5 % as directed Oct, Active Excedrin Migraine 250-250-65 MG Orally every 6 hrs 2 tablets as needed 6h Active Hydrochlorothiazide 25 MG Orally Once a day 1 tablet 24h Jul, 30 day(s) Active Omeprazole 40 MG Orally Once a day 1 capsule 24h May, 30 day(s ) Active Lisinopril 40 mg Orally Once a day 1 tablet 24h Nov, Active Zofran 8 MG Orally 3 times a day 1 tablet 8h Mar, Active Sertraline HCl 25 MG Orally Once a day 1 tablet 24h Jun, 30 day (s) Active Acyclovir 400 MG Orally Twice a day 1 tablet 12h Oct, 90 days Active Trazodone HCl 50 mg Orally Once a day 1 tablet at bedtime as needed 24h Jul, 30 day(s) Active Atenolol 50 mg Orally Once a day 1 tablet 24h Nov, Active Proventil HFA 108 (90 Base) MCG/ACT Inhalation every 4 hrs 2 puffs as needed 4h Nov, Active RESULTS No Results PROCEDURES No Known [...]
--- OUTSIDE RECORDS SUMMARY | 2017-06-26 12:31 | XMS REPORT ---
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 Active 281970530811391 Problem Depressive disorder, not elsewhere classified F32.9 Active 55754789 Problem Rheumatoid arthritis flare M06.9 Active 470169919 Problem Gastroesophageal reflux disease without esophagitis K21.9 Active 003460612 Problem Panic attacks F41.0 Active 656351426 Problem Seasonal allergic rhinitis, unspecified allergic rhinitis trigger J30.2 Active 077531450 Problem Insomnia due to medical condition G47.01 Active 64218495 Problem 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 Active 34674487 Problem Chronic obstructive pulmonary disease, unspecified COPD type J44.9 Active 18986219 Problem Chronic hepatitis C B18.2 Active 532820452 Problem Essential hypertension I10 Active 82350943 Problem Bilateral low back pain, with sciatica presence unspecified M54.5 Active 580540829 Problem Anxiety F41.9 Active 35275755 Problem Methamphetamine abuse F15.10 Active 624148291 Problem Other chronic pain G89.29 Active 16178378 ALLERGIES Substance Reaction Event Type Date Status Macrobid Unknown Drug Allergy May, Active SOCIAL HISTORY No smoking Hx information available PLAN OF CARE Activity Details Follow Up prn Reason: VITAL SIGNS Height 60 in 2016-06-10 Weight 160.4 lbs 2016-06-10 Temperature 99.4 degrees Fahrenheit 2016-06-10 Heart Rate 90 bpm 2016-06-10 Respiratory Rate 18 2016-06-10 BMI 31.32 kg/m2 2016-06-10 Blood pressure systolic 180 mmHg 2016-06-10 Blood pressure diastolic 112 mmHg 2016-06-10 MEDICATIONS Medication Instructions Dosage Frequency Start Date End Date Duration Status Valtrex 1 GM Orally every 24 hrs 1 tablet Mar, Active Lisinopril 40 mg Orally Once a day 1 tablet 24h Nov, 30 day(s) Active Proventil HFA 108 (90 Base) MCG/ACT Inhalation every 4 hrs 2 puffs as needed 4h Nov, Active Anusol-HC 2.5 % Rectal 4 times a day 1 application to affected area 6h Active Tramadol HCl 50 mg Orally every 6 hrs 1 tablet as needed 6h Mar, Active Naproxen 500 MG Orally every 12 hrs 1 tablet as needed 12h May, Jun, 15 days Active Zofran ODT 4 MG Orally every 8 hrs 1 tablet on the tongue and allow to dissolve, as needed 8h Active Zofran 8 MG Orally 3 times a day 1 tablet 8h Mar, Active Omeprazole 40 MG Orally Once a day 1 capsule 24h May, 30 day(s ) Active Proctosol HC 2.5 % Rectal Twice a day 1 application to affected area 12h Mar, Jun, 30 day(s) Active Naproxen 250 MG Orally Twice a day 1 tablet 12h Active ProAir HFA 108 (90 Base) MCG/ACT INHALE 2 PUFFS BY INHALATION ROUTE EVERY 4 HOURS NEEDED Active Atenolol 50 mg Orally Once a day 1 tablet 24h Nov, 30 day(s) Active Acyclovir 400 MG Orally 3 times a day 1 tablet 8h Oct, 05 days Active Excedrin Migraine 250-250-65 MG Orally every 6 hrs 2 tablets as needed 6h Active Debrox 6.5 % as directed Oct, Active RESULTS No Results PROCEDURES Procedure Date Ordered Related Diagnosis Body Site Office Visit, Est Pt., Level 3 Jun 10, 2016 DEPO MEDROL 80 MG/ML Jun 10, 2016 DEXAMETHASONE 4MG/ML (PER 1 MG) Jun 10, 2016 THER/PROPH/DIAG INJ, SC/IM Jun 10, 2016 IMMUNIZATIONS Vaccine Route Administration Date Status DEXAMETHASONE 4MG/ML (PER 1 MG) IM Intramuscular Jun 10, 2016 Administered DEPO MEDROL 80 MG/ML IM Intramuscular Jun 10, 2016 Administered
--- OUTSIDE RECORDS SUMMARY | 2017-06-26 12:31 | XMS REPORT ---
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 Active 008227794306248 Problem Depressive disorder, not elsewhere classified F32.9 Active 25047779 Problem Rheumatoid arthritis flare M06.9 Active 221944193 Problem Gastroesophageal reflux disease without esophagitis K21.9 Active 733846125 Problem Panic attacks F41.0 Active 411133647 Problem Seasonal allergic rhinitis, unspecified allergic rhinitis trigger J30.2 Active 496499293 Problem Insomnia due to medical condition G47.01 Active 49202421 Problem 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 Active 33860433 Problem Chronic obstructive pulmonary disease, unspecified COPD type J44.9 Active 29533122 Problem Chronic hepatitis C B18.2 Active 292742824 Problem Essential hypertension I10 Active 69891583 Problem Bilateral low back pain, with sciatica presence unspecified M54.5 Active 005647826 Problem Anxiety F41.9 Active 80280421 Problem Methamphetamine abuse F15.10 Active 848113532 Problem Other chronic pain G89.29 Active 85487961 ALLERGIES No Information SOCIAL HISTORY Never Assessed PLAN OF CARE Activity Details Follow Up 2 Weeks Reason:F/U PT VITAL SIGNS MEDICATIONS Unknown Medications RESULTS No Results PROCEDURES Procedure Date Ordered Result Body Site PT EVAL MOD COMPLEX 30 MIN September 16, 2016 THERAPEUTIC EXERCISES September 16, 2016 IMMUNIZATIONS No Known Immunizations MEDICAL (GENERAL) [...]
--- OUTSIDE RECORDS SUMMARY | 2017-06-26 12:31 | XMS REPORT ---
Author Author JAYLAN ALBERT Organization 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 Active 950538760973001 Problem Depressive disorder, not elsewhere classified F32.9 Active 29012357 Problem Rheumatoid arthritis flare M06.9 Active 059972374 Problem Gastroesophageal reflux disease without esophagitis K21.9 Active 394588947 Problem Panic attacks F41.0 Active 261710561 Problem Seasonal allergic rhinitis, unspecified allergic rhinitis trigger J30.2 Active 416155277 Problem Insomnia due to medical condition G47.01 Active 77388612 Problem 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 Active 27408739 Problem Chronic obstructive pulmonary disease, unspecified COPD type J44.9 Active 80341486 Problem Chronic hepatitis C B18.2 Active 934739022 Problem Essential hypertension I10 Active 12382878 Problem Bilateral low back pain, with sciatica presence unspecified M54.5 Active 866374974 Problem Anxiety F41.9 Active 39606708 Problem Methamphetamine abuse F15.10 Active 446496014 Problem Other chronic pain G89.29 Active 39283774 ALLERGIES No Information SOCIAL HISTORY Never Assessed [...]
--- OUTSIDE RECORDS SUMMARY | 2017-06-26 12:32 | XMS REPORT | Continuity of Care Document ---
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 10/13/2015 HONORIO AGEE APRN Ot Y92.013 BEDROOM OF SINGLE-FAMILY (PRIVATE) HOUSE 10/13/2015 HONORIO AGEE APRN Ot Y93.84 ACTIVITY, SLEEPING 10/13/2015 HONORIO AGEE APRN Ot Y99.8 OTHER EXTERNAL CAUSE STATUS 11/27/2015 Ot 722.4 CERVICAL DISC DEGEN 11/27/2015 Ot 577.1 CHRONIC PANCREATITIS 11/27/2015 Ot 716.90 ARTHROPATHY NOS-UNSPEC 11/27/2015 ANIA CLEANING MD Ot 724.2 LUMBAGO 11/27/2015 ANIA CLEANING MD Ot 793.7 NOSP (ABN) FINDINGS ON RADIOLOGICAL OT 11/27/2015 ANIA CLEANING MD Ot V15.88 HISTORY OF FALL 11/27/2015 ALBERT TIAN MD Ot 401.1 BENIGN HYPERTENSION 11/27/2015 ALBERT TIAN MD Ot 496 CHR AIRWAY OBSTRUCT NEC 11/27/2015 ALBERT TIAN MD Ot 714.0 RHEUMATOID ARTHRITIS 11/27/2015 ALBERT TINA MD Ot 724.2 LUMBAGO 11/27/2015 HONORIO AGEE APRN Ot R10.12 LEFT UPPER QUADRANT PAIN 11/27/2015 HONORIO AGEE APRN Ot R10.13 EPIGASTRIC PAIN 11/27/2015 HONORIO AGEE APRN Ot R11.2 NAUSEA WITH VOMITING, UNSPECIFIED 11/27/2015 HONORIO AGEE APRN Ot R19.7 DIARRHEA, UNSPECIFIED 11/29/2015 HONORIO AGEE APRN Ot R10.12 LEFT UPPER QUADRANT PAIN 11/29/2015 HONORIO AGEE APRN Ot R10.13 EPIGASTRIC PAIN 11/29/2015 HONORIO AGEE APRN Ot R11.2 NAUSEA WITH VOMITING, UNSPECIFIED 11/29/2015 HONORIO AGEE APRN Ot R19.7 DIARRHEA, UNSPECIFIED 04/18/2016 HONORIO AGEE APRN Ot F17.210 NICOTINE DEPENDENCE, CIGARETTES, UNCOMPL 04/18/2016 HONORIO AGEE APRN Ot M25.562 PAIN IN LEFT KNEE 04/19/2016 HONORIO AGEE APRN Ot M25.562 PAIN IN LEFT KNEE 04/19/2016 HONORIO AGEE APRN Ot F17.210 NICOTINE DEPENDENCE, CIGARETTES, UNCOMPL 04/19/2016 HONORIO AGEE APRN Ot M25.562 PAIN IN LEFT KNEE 05/23/2016 KRIS WHALEN DO Ot F17.210 NICOTINE DEPENDENCE, CIGARETTES, UNCOMPL 05/23/2016 KRIS WHALEN DO, Ot I10 ESSENTIAL (PRIMARY) HYPERTENSION 05/23/2016 KRIS WHALEN DO, Ot J44.9 CHRONIC OBSTRUCTIVE PULMONARY DISEASE, U 05/23/2016 KRIS WHALEN DO, Ot S39.012A STRAIN OF MUSCLE, FASCIA AND TENDON OF L 05/23/2016 KRIS WHALEN DO, Ot S62.644A NONDISP FX OF PROXIMAL PHALANX OF RIGHT 05/23/2016 KRIS HWALEN DO, Ot S69.91XA UNSP INJURY OF RIGHT WRIST, HAND AND FIN 05/23/2016 KRIS WHALEN DO, Ot S93.402A SPRAIN OF UNSPECIFIED LIGAMENT OF LEFT A 05/23/2016 KRIS WHALEN DO, Ot W10.9XXA FALL (ON) (FROM) UNSPECIFIED STAIRS AND 05/23/2016 KRIS WHALEN DO, Ot Y92.[address] IN UNSP NON-INSTITUT (PRIVATE 05/23/2016 KRIS WHALEN DO Ot Y99.8 OTHER EXTERNAL CAUSE STATUS 05/24/2016 KRIS WHALEN DO Ot F17.210 NICOTINE DEPENDENCE, CIGARETTES, UNCOMPL 05/24/2016 KRIS WHALEN DO Ot I10 ESSENTIAL (PRIMARY) HYPERTENSION 05/24/2016 KRIS WHALEN DO Ot J44.9 CHRONIC OBSTRUCTIVE PULMONARY DISEASE, U 05/24/2016 KRIS WHALEN DO Ot S39.012A STRAIN OF MUSCLE, FASCIA AND TENDON OF L 05/24/2016 KRIS WHALEN DO K Ot S62.644A NONDISP FX OF PROXIMAL PHALANX OF RIGHT 05/24/2016 KOBY DOKRIS K Ot S69.91XA UNSP INJURY OF RIGHT WRIST, HAND AND FIN 05/24/2016 KOBY MORILLO KRIS K Ot S93.402A SPRAIN OF UNSPECIFIED LIGAMENT OF LEFT A 05/24/2016 KOBY MORILLO KRIS K Ot W10.9XXA FALL (ON) (FROM) UNSPECIFIED STAIRS AND 05/24/2016 KOBY KRIS K Ot Y92.[address] [facility] 05/24/2016 KRIS WHALEN DO K Ot Y99.8 OTHER EXTERNAL CAUSE STATUS 05/29/2016 KRIS WHALEN DO Ot F17.210 NICOTINE DEPENDENCE, CIGARETTES, UNCOMPL 05/29/2016 KRIS WHALEN DO K Ot I10 ESSENTIAL (PRIMARY) HYPERTENSION 05/29/2016 KOBY MORILLO KRIS Vicente Ot J44.9 CHRONIC OBSTRUCTIVE PULMONARY DISEASE, U 05/29/2016 KOBY MORILLO KRIS Vicente Ot S39.012A STRAIN OF MUSCLE, FASCIA AND TENDON OF L 05/29/2016 KOBY MOIRLLO KRIS K Ot S62.644A NONDISP FX OF PROXIMAL PHALANX OF RIGHT 05/29/2016 KOBY MORILLO KRIS K Ot S69.91XA UNSP INJURY OF RIGHT WRIST, HAND AND FIN 05/29/2016 KOBY MORILLO KRIS K Ot S93.402A SPRAIN OF UNSPECIFIED LIGAMENT OF LEFT A 05/29/2016 KOBY MORILLO KRIS K Ot W10.9XXA FALL (ON) (FROM) UNSPECIFIED STAIRS AND 05/29/2016 KOBY , KRIS K Ot Y92.[address] IN UNSP NON-INSTITUT (PRIVATE 05/29/2016 KOBY MORILLO KRIS Vicente Ot Y99.8 OTHER EXTERNAL CAUSE STATUS 07/22/2016 ALBERT TIAN MD Ot I10 ESSENTIAL (PRIMARY) HYPERTENSION 07/22/2016 ALBERT TIAN MD Ot M06.9 RHEUMATOID ARTHRITIS, UNSPECIFIED 08/02/2016 ALBERT TIAN MD Ot I10 ESSENTIAL (PRIMARY) HYPERTENSION 08/02/2016 ALBERT TIAN MD, Ot M06.9 RHEUMATOID ARTHRITIS, UNSPECIFIED 11/11/2016 HONORIO AGEE APRN Ot F31.9 BIPOLAR DISORDER, UNSPECIFIED 11/11/2016 HONORIO AGEE APRN Ot F41.9 ANXIETY DISORDER, UNSPECIFIED 11/11/2016 HONORIO AGEE APRN Ot G43.909 MIGRAINE, UNSP, NOT INTRACTABLE, WITHOUT 11/11/2016 HONORIO AGEE APRN Ot I10 ESSENTIAL (PRIMARY) HYPERTENSION 11/11/2016 HONORIO AGEE APRN Ot J44.9 CHRONIC OBSTRUCTIVE PULMONARY DISEASE, U 11/11/2016 HONORIO AGEE APRN Ot K21.9 GASTRO-ESOPHAGEAL REFLUX DISEASE WITHOUT 11/11/2016 HONORIO AGEE APRN Ot K52.9 NONINFECTIVE GASTROENTERITIS AND COLITIS 11/11/2016 HONORIO AGEE APRN Ot K59.09 OTHER CONSTIPATION 11/11/2016 HONORIO AGEE APRN Ot M47.9 SPONDYLOSIS, UNSPECIFIED 11/11/2016 HONORIO AGEE APRN Ot Z86.73 PRSNL HX OF TIA (TIA), AND CEREB INFRC W 11/11/2016 HONORIO AGEE APRN Ot Z90.49 ACQUIRED ABSENCE OF OTHER SPECIFIED PART 11/11/2016 HONORIO AGEE APRN Ot Z90.710 ACQUIRED ABSENCE OF BOTH CERVIX AND UTER 11/11/2016 HONORIO AGEE APRN Ot Z90.89 ACQUIRED ABSENCE OF OTHER ORGANS 11/13/2016 HONORIO AGEE APRN Ot F31.9 BIPOLAR DISORDER, UNSPECIFIED 11/13/2016 HONORIO AGEE APRN Ot F41.9 ANXIETY DISORDER, UNSPECIFIED 11/13/2016 HONORIO AGEE APRN Ot G43.909 MIGRAINE, UNSP, NOT INTRACTABLE, WITHOUT 11/13/2016 HONORIO AGEE APRN Ot I10 ESSENTIAL (PRIMARY) HYPERTENSION 11/13/2016 HONORIO AGEE APRN Ot J44.9 CHRONIC OBSTRUCTIVE PULMONARY DISEASE, U 11/13/2016 HONORIO AGEE APRN Ot K21.9 GASTRO-ESOPHAGEAL REFLUX DISEASE WITHOUT 11/13/2016 HONORIO AGEE APRN Ot K52.9 NONINFECTIVE GASTROENTERITIS AND COLITIS 11/13/2016 HONORIO AGEE APRN Ot K59.09 OTHER CONSTIPATION 11/13/2016 HONORIO AGEE APRN Ot M47.9 SPONDYLOSIS, UNSPECIFIED 11/13/2016 HONORIO AGEE APRN Ot Z86.73 PRSNL HX OF TIA (TIA), AND CEREB INFRC W 11/13/2016 HONORIO AGEE APRN Ot Z90.49 ACQUIRED ABSENCE OF OTHER SPECIFIED PART 11/13/2016 HONORIO AGEE APRN Ot Z90.710 ACQUIRED ABSENCE OF BOTH CERVIX AND UTER 11/13/2016 HONORIO AGEE APRN Ot Z90.89 ACQUIRED ABSENCE OF OTHER ORGANS 11/17/2016 HONORIO AGEE APRN Ot F31.9 BIPOLAR DISORDER, UNSPECIFIED 11/17/2016 HONORIO AGEE APRN Ot F41.9 ANXIETY DISORDER, UNSPECIFIED 11/17/2016 HONORIO AGEE APRN Ot G43.909 MIGRAINE, UNSP, NOT INTRACTABLE, WITHOUT 11/17/2016 HONORIO AGEE APRN Ot I10 ESSENTIAL (PRIMARY) HYPERTENSION 11/17/2016 HONORIO AGEE APRN, Ot J44.9 CHRONIC OBSTRUCTIVE PULMONARY DISEASE, U 11/17/2016 HONORIO AGEE APRN Ot K21.9 GASTRO-ESOPHAGEAL REFLUX DISEASE WITHOUT 11/17/2016 HONORIO AGEE APRN Ot K52.9 NONINFECTIVE GASTROENTERITIS AND COLITIS 11/17/2016 HONORIO AGEE APRN Ot K59.09 OTHER CONSTIPATION 11/17/2016 HONORIO AGEE APRN Ot M47.9 SPONDYLOSIS, UNSPECIFIED 11/17/2016 HONORIO AGEE APRN Ot Z86.73 PRSNL HX OF TIA (TIA), AND CEREB INFRC W 11/17/2016 HONORIO AGEE APRN Ot Z90.49 ACQUIRED ABSENCE OF OTHER SPECIFIED PART 11/17/2016 HONORIO AGEE APRN Ot Z90.710 ACQUIRED ABSENCE OF BOTH CERVIX AND UTER 11/17/2016 HONORIO AGEE APRN Ot Z90.89 ACQUIRED ABSENCE OF OTHER ORGANS 12/04/2016 HONORIO AGEE APRN Ot B19.20 UNSPECIFIED VIRAL HEPATITIS C WITHOUT HE 12/04/2016 HONORIO AGEE APRN Ot F31.9 BIPOLAR DISORDER, UNSPECIFIED 12/04/2016 HONORIO AGEE APRN Ot F41.9 ANXIETY DISORDER, UNSPECIFIED 12/04/2016 HONORIO AGEE APRN Ot G40.909 EPILEPSY, UNSP, NOT INTRACTABLE, WITHOUT 12/04/2016 HONORIO AGEE APRN Ot G43.909 MIGRAINE, UNSP, NOT INTRACTABLE, WITHOUT 12/04/2016 HONORIO AGEE APRN Ot J44.9 CHRONIC OBSTRUCTIVE PULMONARY DISEASE, U 12/04/2016 HONORIO AGEE APRN Ot K21.9 GASTRO-ESOPHAGEAL REFLUX DISEASE WITHOUT 12/04/2016 HONORIO AGEE APRN Ot M06.9 RHEUMATOID ARTHRITIS, UNSPECIFIED 12/04/2016 HONORIO AGEE APRN Ot M47.9 SPONDYLOSIS, UNSPECIFIED 12/04/2016 HONORIO AGEE APRN Ot Z45.2 ENCOUNTER FOR ADJUSTMENT AND MANAGEMENT 12/04/2016 HONORIO AGEE APRN Ot Z86.73 PRSNL HX OF TIA (TIA), AND CEREB INFRC W 12/04/2016 HONORIO AGEE APRN Ot Z87.442 PERSONAL HISTORY OF URINARY CALCULI 12/04/2016 HONORIO AGEE APRN Ot Z90.710 ACQUIRED ABSENCE OF BOTH CERVIX AND UTER 12/04/2016 HONORIO AGEE APRN Ot Z90.89 ACQUIRED ABSENCE OF OTHER ORGANS 12/04/2016 HONORIO AGEE APRN Ot Z98.818 OTHER DENTAL PROCEDURE STATUS 12/04/2016 HONORIO AGEE APRN Ot Z98.890 OTHER SPECIFIED POSTPROCEDURAL STATES 04/28/2017 ALBERT TIAN MD Ot Z12.31 ENCNTR SCREEN MAMMOGRAM FOR MALIGNANT NE 05/07/2017 DENISE AMBROSIO MD Ot Z51.81 ENCOUNTER FOR THERAPEUTIC DRUG LEVEL MON 05/07/2017 DENISE AMBROSIO MD Ot Z79.899 OTHER PENITENTIARY (CURRENT) DRUG THERAPY 05/08/2017 ALBERT TIAN MD, Ot Z12.31 ENCNTR SCREEN MAMMOGRAM FOR MALIGNANT NE Procedures Code Description Performed By Performed On 51.23 08/30/2009 87.53 08/30/2009 71300 XRAY LUMBAR SPINE 2 OR 3 VIEWS 06/25/2013 50070 XRAY HAND HARIS 2 VIEWS 06/25/2013 53532 THERAPUTIC INJ SQ/IM 06/25/2013 J2930 SOLUMEDROL INJ 06/25/2013 97146 MRI SPINE (LUMBAR) W/O CONTRAST 06/25/2013 52603 CMP 08/17/2013 81366 LIPID PANEL 08/17/2013 ANESTHESI JALIL MYERS 08/17/2013 PODIATRY DANIEL SANDOVAL 08/17/2013 RHEUMATOL ABBE ESCOBEDO 08/17/2013 94831 MAMMOGRAM, SCREENING 08/17/2013 3659059 HEPATITIS A ANITBODY TOTAL 05/19/2014 67415 PT/INR 05/19/2014 27587 HIV ANTIBODIES (RML) 05/19/2014 57759 HEP B SURFACE ANTIBODY 05/19/2014 45483 HEP C PCR QUANT W/JUNIOR 05/19/2014 PHYSICAL PHYSICAL THERAPY, VIA [facility] 05/19/2014 Results Test Result Range Blood CBC with ordered manual differential panel - 07/19/16 08:28 Blood leukocytes automated count (number/volume) 10.8 10*3/uL 4.3-11.0 Blood erythrocytes automated count (number/volume) 4.88 10*6/uL 4.35-5.85 Venous blood hemoglobin measurement (mass/volume) 15.5 g/dL 11.5-16.0 Blood hematocrit (volume fraction) 45 % 35-52 Automated erythrocyte mean corpuscular volume 93 [foz_us] 80-99 Automated erythrocyte mean corpuscular hemoglobin (mass per erythrocyte) 32 pg 25-34 Automated erythrocyte mean corpuscular hemoglobin concentration measurement ( mass/volume) 34 g/dL 32-36 Automated erythrocyte distribution width ratio 14.0 % 10.0-14.5 Automated blood platelet count (count/volume) 279 10*3/uL 130-400 Automated blood platelet mean volume measurement 9.7 [foz_us] 7.4-10.4 Automated blood neutrophils/100 leukocytes 51 % 42-75 Automated blood lymphocytes/100 leukocytes 40 % 12-44 Blood monocytes/100 leukocytes 4 % NRG Automated blood eosinophils/100 leukocytes 1 % 0-10 Automated blood basophils/100 leukocytes 1 % 0-10 Blood neutrophils automated count (number/volume) 5.5 10*3 1.8-7.8 Blood lymphocytes automated count (number/volume) 4.3 10*3 1.0-4.0 Blood monocytes automated count (number/volume) 0.9 10*3 0.0-1.0 Automated eosinophil count 0.1 10*3/uL 0.0-0.3 Automated blood basophil count (count/volume) 0.1 10*3/uL 0.0-0.1 Manual blood segmented neutrophils/100 leukocytes 49 % NRG Blood band neutrophils/100 leukocytes 0 % NRG Manual blood lymphocytes/100 leukocytes 35 % NRG Manual eosinophils/100 leukocytes in nose 0 % NRG Manual blood basophils/100 leukocytes 0 % NRG Blood lymphocytes variant/100 leukocytes 12 % NRG Blood erythrocyte morphology finding identification NORMAL NRG Serum or plasma rheumatoid factor measurement (units/volume) - 07/19/16 08:28 Serum or plasma rheumatoid factor measurement (units/volume) NEGATIVE NEGATIVE Comprehensive metabolic panel - 07/19/16 08:28 Serum or plasma sodium measurement (moles/volume) 138 mmol/L 135-145 Serum or plasma potassium measurement (moles/volume) 4.2 mmol/L 3.6-5.0 Serum or plasma chloride measurement (moles/volume) 105 mmol/L 98-107 Carbon dioxide 26 mmol/L 21-32 Serum or plasma anion gap determination (moles/volume) 7 mmol/L 5-14 Serum or plasma urea nitrogen measurement (mass/volume) 16 mg/dL 7-18 Serum or plasma creatinine measurement (mass/volume) 0.75 mg/dL 0.60-1.30 Serum or plasma urea nitrogen/creatinine mass ratio 21 NRG Serum or plasma creatinine measurement with calculation of estimated glomerular filtration rate > NRG Serum or plasma glucose measurement (mass/volume) 107 mg/dL 70-105 Serum or plasma calcium measurement (mass/volume) 8.5 mg/dL 8.5-10.1 Serum or plasma total bilirubin measurement (mass/volume) 0.8 mg/dL 0.1-1.0 Serum or plasma alkaline phosphatase measurement (enzymatic activity/volume) 99 U/L 40-136 Serum or plasma aspartate aminotransferase measurement (enzymatic activity/ volume) 57 U/L 5-34 Serum or plasma alanine aminotransferase measurement (enzymatic activity/volume ) 77 U/L 0-55 Serum or plasma protein measurement (mass/volume) 7.5 g/dL 6.4-8.2 Serum or plasma albumin measurement (mass/volume) 3.7 g/dL 3.2-4.5 Lipid 1996 panel - 07/19/16 08:28 Serum or plasma triglyceride measurement (mass/volume) 62 mg/dL <150 Serum or plasma cholesterol measurement (mass/volume) 105 mg/dL < 200 Serum or plasma cholesterol in HDL measurement (mass/volume) 39 mg/ dL 40-60 Cholesterol in LDL [mass/volume] in serum or plasma by direct assay 54 mg/dL 1-129 Serum or plasma cholesterol in VLDL measurement (mass/volume) 12 mg/ dL 5-40 QUANTIFERON-TB GOLD - 05/02/17 11:10 QuantiFERON-TB test Negative Negative Mitogen stimulated gamma interferon [units/volume] corrected for background in blood 0.03 [iU]/mL 0.00-7.99 Mitogen stimulated gamma interferon [units/volume] in blood > [iU]/ mL 0.50-10.00 Qualitative QuantiFERON-TB gold in tube test 0.01 0.00- 0.34 Encounters ACCT No. Visit Date/Time Discharge Status Pt. Type Provider Facility Loc./Unit Complaint [id number] 06/09/2014 14:32:00 06/09/2014 23:59:59 CLS Outpatient ALBERT TIAN MD [id number] 05/19/2014 14:34:00 05/19/2014 23:59:59 CLS Outpatient ALBERT TIAN MD [id number] 10/01/2013 10:20:00 10/01/2013 23:59:59 CLS Outpatient MILLICENT BARNEY DO [id number] 08/26/2013 13:52:00 08/26/2013 23:59:59 CLS Outpatient MARIANELA ELIZABETH APRN [id number] 08/17/2013 14:21:00 08/17/2013 23:59:59 CLS Outpatient ALBERT TIAN MD [id number] 08/17/2013 14:21:00 08/17/2013 23:59:59 CLS Outpatient ALBERT TIAN MD [id number] 06/25/2013 08:48:00 06/25/2013 23:59:59 CLS Outpatient ANIA CLEANING MD [id number] 06/25/2013 08:48:00 06/25/2013 23:59:59 CLS Outpatient ANIA CLEANING MD [id number] 05/02/2017 10:41:00 05/02/2017 23:59:59 CLS Outpatient DENISE AMBROSIO MD [facility] LAB Z79.899 [id number] 2017 09:36:00 2017 23:59:59 CLS Outpatient ALBERT TIAN MD [facility] RAD Z00.00 WELL WOMAN EXAM [id number] 02/24/2017 16:29:00 02/24/2017 23:59:59 CLS Preadmit IVANIA YEUNG, AL Aviles [facility] RAD SCREENING [id number] 12/04/2016 13:24:00 12/04/2016 14:16:00 DIS Emergency HONORIO AGEE APRN [facility] ER NEEDS PORT LOOKED AT [id number] 11/11/2016 14:22:00 11/11/2016 15:50:00 DIS Emergency HONORIO AGEE APRN [facility] ER MIGRAINE [id number] 07/19/2016 08:05:00 07/19/2016 23:59:59 CLS Outpatient ALBERT TIAN MD [facility] LAB ESSENTIAL HYPERTENSION, M06.9 [id number] 05/23/2016 21:36:00 05/23/2016 22:45:00 DIS Emergency KRIS WHALEN DO K [facility] ER FALL [id number] 04/18/2016 15:14:00 04/18/2016 16:35:00 DIS Emergency HONORIO AGEE APRN [facility] ER KNEE PAIN [id number] 11/27/2015 12:13:00 11/27/2015 15:08:00 DIS Emergency HONORIO AGEE APRN [facility] ER ABD PAIN [id number] 10/12/2015 11:01:00 10/12/2015 11:21:00 DIS Emergency HONORIO AGEE APRN [facility] ER [id number] 08/30/2015 14:03:00 08/30/2015 16:30:00 DIS Emergency DEONTE STYLES [facility] ER [id number] 08/03/2015 19:13:00 08/03/2015 21:09:00 DIS Emergency HONORIO AGEE APRN [facility] ER [id number] 12/01/2014 18:42:00 12/01/2014 20:29:00 DIS Emergency KRIS WHALEN DO [facility] ER [id number] 08/22/2014 17:54:00 08/22/2014 21:12:00 DIS Emergency KRIS WHALEN DO K [facility] ER [id number] 05/26/2014 09:20:00 05/26/2014 23:59:59 CLS Outpatient ALBERT TIAN MD [facility] REHAB [id number] 04/26/2014 19:31:00 04/26/2014 22:46:00 DIS Emergency KRIS WHALEN DO [facility] ER [id number] 03/19/2014 23:49:00 03/20/2014 01:33:00 DIS Emergency KRIS WHALEN DO [facility] ER [id number] 12/09/2013 13:45:00 12/09/2013 15:27:00 DIS Outpatient TEJINDER LI MD [facility] REHAB [id number] 12/06/2013 21:25:00 12/06/2013 22:02:00 DIS Emergency MYRIAM LANDA MD [facility] ER [id number] 12/06/2013 10:37:00 12/06/2013 13:15:00 DIS Emergency HONORIO AGEE APRN [facility] ER [id number] 11/29/2013 21:18:00 11/29/2013 23:11:00 DIS Emergency PATRICIA CASTELLANO DO [facility] ER [id number] 11/22/2013 10:37:00 11/22/2013 23:59:59 CLS Outpatient ALBERT TIAN MD [facility] LAB [id number] 11/05/2013 16:11:00 11/05/2013 17:54:00 DIS Emergency DEONTE STYLES [facility] ER [id number] 10/31/2013 13:33:00 10/31/2013 14:49:00 DIS Emergency 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 [facility] ER [id number] 10/13/2013 16:02:00 10/13/2013 23:59:59 CLS Outpatient [id number] 09/15/2013 07:27:00 09/15/2013 09:33:00 DIS Emergency MARICARMEN YEUNG, FAHAD Pickett [facility] ER [id number] 07/19/2013 09:14:00 07/19/2013 23:59:59 CLS Outpatient HERMILA YEUNG, ANIA Martínez [facility] RAD [id number] 05/31/2013 10:13:00 05/31/2013 11:46:00 DIS Emergency 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 [facility] ER [id number] 04/22/2013 09:22:00 04/22/2013 11:59:00 DIS Emergency ISSAC COFFMAN MD [facility] ER [id number] 03/11/2013 18:56:00 03/11/2013 21:52:00 DIS Emergency KRIS WHALEN DO [facility] ER [id number] 02/02/2013 23:20:00 02/03/2013 12:15:00 DIS Inpatient JALIL FRYE MD [facility] [id number] 01/25/2013 19:17:00 01/25/2013 23:59:59 CLS Outpatient [id number] 01/24/2013 17:14:00 01/24/2013 23:59:59 CLS Preadmit KRIS WHALEN DO [facility] ER [id number] 11/02/2012 08:29:00 11/02/2012 23:59:59 CLS Outpatient [id number] 10/21/2012 11:44:00 10/21/2012 23:59:59 [facility] [id number] 07/25/2014 19:10:00 Document Registration [id number] 07/21/2014 09:14:00 Document Registration [id number] 07/04/2014 22:35:00 Document Registration [id number] 07/04/2014 22:35:00 Document Registration [id number] 07/04/2014 22:35:00 Document Registration [id number] 07/04/2014 22:35:00 Document Registration [id number] 07/04/2014 22:35:00 Document Registration [id number] 07/04/2014 22:34:00 Document Registration [id number] 05/16/2012 12:41:00 Document Registration [id number] 03/17/2012 09:41:00 Document Registration [id number] 08/22/2011 12:42:00 Document Registration [id number] 08/17/2011 20:13:00 Document Registration [id number] 07/06/2011 08:16:00 Document Registration [id number] 07/04/2011 14:39:00 Document Registration [id number] 16:12:00 Document Registration [id number] 09/12/2010 15:53:00 Document Registration [id number] 08/21/2010 15:09:00 Document Registration [id number] 08/02/2010 10:10:00 Document Registration [id number] 07/24/2010 13:19:00 Document Registration [id number] 06/25/2010 15:16:00 Document Registration [id number] 05/10/2010 12:21:00 Document Registration [id number] 05/04/2010 12:32:00 Document Registration [id number] 04/07/2010 16:28:00 Document Registration [id number] 03/06/2010 20:31:00 Document Registration [id number] 01/12/2010 10:22:00 Document Registration [id number] 12/29/2009 08:25:00 Document Registration [id number] 10/31/2009 08:48:00 Document Registration [id number] 10/19/2009 06:48:00 Document Registration [id number] 08/23/2009 08:52:00 Document Registration
== END 2017-06-23 12:14 | disposition left against medical advice (07) ==
LOC: EDUNIT# 12:00 → ER 12:02
DX: M25.532 Pain in left wrist (principal); W00.0XXA Fall on same level due to ice and snow, initial encounter

== ENCOUNTER → 2017-06-23 | Outpatient (CLI) | payer MEDICAID ==
--- NOTE | 2017-06-23 14:52 | Diagnostic Imaging Report ---
INDICATION: Left arm pain post injury. AP and lateral views of the left humerus are obtained. FINDINGS: No fracture or acute bony abnormality is seen. IMPRESSION: Negative left humerus. Dictated by: Dictated on workstation # [id number]
--- NOTE | 2017-06-23 14:59 | Diagnostic Imaging Report ---
INDICATION: Back pain, post fall. EXAM: AP and lateral views of the lumbar spine are obtained. FINDINGS: The lumbar vertebrae are normal in alignment. There is a compression deformity of L1 which appears chronic compared with 05/23/2016. There is no subluxation or malalignment. IMPRESSION: L1 compression fracture is noted which appears chronic compared to a prior study of 05/23/2016. No other focal abnormality is seen. Dictated by: Dictated on workstation # [id number]
--- NOTE | 2017-06-23 15:01 | Diagnostic Imaging Report ---
INDICATION: Fall with left shoulder pain. AP, oblique, lateral views of the left shoulder are obtained. No fracture or dislocation is seen. There is no acute bony abnormality. IMPRESSION: Negative left shoulder. Dictated by: Dictated on workstation # [id number]
== END ==
LOC: RAD 14:08
PROVIDERS: ATTEND Nurse Practitioner Family
DX: S32.019A Unspecified fracture of first lumbar vertebra, initial encounter for closed fracture (principal); W19.XXXA Unspecified fall, initial encounter; M25.512 Pain in left shoulder; M79.602 Pain in left arm
CPT/HCPCS: 72100; 73030; 73060

== ENCOUNTER 2017-10-05 20:15 | Emergency (ER) | payer MEDICAID ==
[~2017-10-05] VITALS: Ht 154.9 cm; Wt 74.9 kg
[~2017-10-05 20:15] MED LIST changes: +NAPR-915 PO; -NAPR500T4 PO
--- OUTSIDE RECORDS SUMMARY | 2017-10-05 20:20 | XMS REPORT | Clinical Summary ---
Author Author [facility] Organization [facility] Address Unknown Phone Unavailable Care Team Providers Care Traffic Incident Management Manager Name Role Phone PCP Unavailable Source Comments Some departments are not documenting in the electronic medical record. If you do not see the information that you expected, contact Release of Information in the Health Information Management department at [phone] for further assistance in locating additional records.[facility] Allergies Not on File Current Medications Not on file Active Problems Not on file Social History Tobacco Use Types Packs/Day Years Used Date Never Assessed Sex Assigned at Date Recorded Not on file Last Filed Vital Signs Not on file Plan of Treatment Health Maintenance Due Date Last Done Comments PHYSICAL (COMPREHENSIVE) 1975 EXAM PERTUSSIS VACCINE 1979 HIV SCREENING 1983 TETANUS VACCINE 1985 CERVICAL CANCER SCREENING 1998 BREAST CANCER SCREENING 2008 INFLUENZA VACCINE 02/09/2018 Results Not on filefrom Last 3 Months
--- OUTSIDE RECORDS SUMMARY | 2017-10-05 20:21 | XMS REPORT ---
Author Author AGNES THAKUR [facility] Address [address] 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 Name Role Phone OFE AGNES Unavailable PROBLEMS Type Condition ICD9-CM Code CQV17-MR Code Onset Dates Condition Status SNOMED Code Problem Rheumatoid arthritis involving multiple sites, unspecified rheumatoid factor presence M06.9 Active 346717208 Problem Gastroesophageal reflux disease without esophagitis K21.9 Active 582968929 Problem Other chronic pain G89.29 Active 22901637 Problem Porokeratosis Q82.8 Active 639071962 Problem Plantar wart B07.0 Active 52700937 Problem Seasonal allergic rhinitis, unspecified allergic rhinitis trigger J30.2 Active 615698797 Problem Insomnia due to medical condition G47.01 Active 38120246 Problem Depressive disorder, not elsewhere classified F32.9 Active 06514529 Problem Rheumatoid arthritis flare M06.9 Active 468624655 Problem Bilateral low back pain, with sciatica presence unspecified M54.5 Active 617747355 Problem Methamphetamine abuse F15.10 Active 496393261 Problem 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 Active 51704584 Problem Chronic obstructive pulmonary disease, unspecified COPD type J44.9 Active 02922987 Problem Anxiety F41.9 Active 51660539 Problem Epilepsy, unspecified, not intractable, without status epilepticus G40.909 Active 680789652 Problem Chronic hepatitis C B18.2 Active 404789758 Problem 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 Active 506471300918555 Problem Essential hypertension I10 Active 82147739 Problem Panic attacks F41.0 Active 384969164 ALLERGIES No Information ENCOUNTERS Encounter Location Date Diagnosis [facility] [address] [facility] [id number], [place] [address] Oct, [facility] [address] [facility] [id number], [place] [address] Aug, [place] [address] [place] [id number] [place] [address]221- 5758 Aug, Onychomycosis B35.1 ; Peroneal tendinitis, unspecified laterality M76.70 and Porokeratosis Q82.8 [place] [address] [id number] [place] [address] 44098- 7853 Jul, Porokeratosis Q82.8 ; Hyperhidrosis L74.519 and Callus of foot L84 [place] [address] [address] Apr, [place] [address] [address] Apr, [place] [address] [address] Mar, Well woman exam (no gynecological exam) Z00.00 ; Plantar wart B07.0 ; Pain of left foot M79.672 ; Pain in right foot M79.671 and Rheumatoid arthritis involving multiple sites, unspecified rheumatoid factor presence M06.9 [place] [address] [address] Nov, Bilateral low back pain, with sciatica presence unspecified M54.5 [place] [id number] [place] [address] 17361- 1218 Oct, Chronic obstructive pulmonary disease, unspecified COPD type J44.9 [place] [id number] [place] [address] 90623- 4395 September, [place] [address] [address] September, Bilateral low back pain, with sciatica presence unspecified M54.5 [facility] [id number] [place] [address] 01211 -[address] September, Body aches R52 and Upper respiratory infection, acute J06.9 [place] [address] [place] [address] September, [facility] [id number] [place] [address]95 -6974 September, Left wrist injury, initial encounter S69.92XA and Contusion of wrist, left S60.212A [facility] [id number] [place] [address] 27254- 3604 Aug, Depressive disorder, not elsewhere classified F32.9 [facility] [id number] [place] [address]694 -[address]452 Jul, Seasonal allergic rhinitis, unspecified allergic rhinitis trigger J30.2 ; Rheumatoid arthritis flare M06.9 and Essential hypertension I10 [place] [id number] [place] [address] 03255- 0072 Jul, [place] [id number] [place] [address] 04429- 9271 Jul, Essential hypertension I10 [place] [address] [address]- 4[address] Jul, Essential hypertension I10 ; Other chronic pain G89.29 ; Rheumatoid arthritis involving multiple sites, unspecified rheumatoid factor presence M06.9 and Insomnia due to medical condition G47.01 [facility] [id number] [place] [address] 28815- 0547 Jul, [place] [id number] [place] [address] 59589- 7976 Jul, [place] [id number] [place] [address] 89913- 5662 Jun, [place] [address] [address]- 5[address] Jun, 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 ; Essential hypertension I10 ; Chronic obstructive pulmonary disease, unspecified COPD type J44.9 ; Panic attacks F41.0 ; Hot flashes R23.2 ; Rheumatoid arthritis involving multiple sites, unspecified rheumatoid factor presence M06.9 ; Pain in thoracic spine M54.6 ; Other chronic pain G89.29 and Arthralgia, unspecified joint M25.50 [facility] [id number] [place] [address]20 -9813 30 May, 2016 Rheumatoid arthritis flare M06.9 [facility] [address] [place] [id number] [place] [address] 62704 -[address]307 17 May, 2016 Left lower quadrant pain R10.32 ; Abdominal pain in female R10.9 ; Constipation, unspecified constipation type K59.00 and Gastroesophageal reflux disease without esophagitis K21.9 [facility] [address] [place] [address]88 -[address]200 30 Mar, 2016 Herpes genitalis in women A60.09 ; Bilateral impacted cerumen H61.23 and Injury of right ring finger, initial encounter S69.91XA [address] [address]- [address]598 Mar, [address] [address]- 4885 Nov, Essential hypertension I10 ; Chronic hepatitis C B18.2 ; Arthralgia, unspecified joint M25.50 ; Chronic obstructive pulmonary disease, unspecified COPD type J44.9 ; Methamphetamine abuse F15.10 ; Simple chronic bronchitis J41.0 ; Hemorrhoids, unspecified hemorrhoid type K64.9 and Anxiety F41.9 [facility] [address] [place] [id number] [place] [address] 79766 -6720 Nov, [place] [id number] [place] [address] 34445- 8115 Feb, Elevated glucose R73.[address] [address]- [address]85 Feb, Elevated glucose R73.09 [place] [address] [address] [id number] [place] [address] 13926- 2288 Oct, [address] [address] Oct, [facility] [address] [address] Oct, Essential hypertension, benign 401.1 ; Chronic hepatitis C without mention of hepatic coma 070.54 ; Anxiety state, unspecified 300.00 ; Genital herpes 054.10 ; Methamphetamine abuse 305.70 and Excessive cerumen in both ear canals 380.4 [facility] [id number] [place] [address] 83921- 0100 Oct, [facility] [id number] [place] [address] 14123- 7784 Aug, [facility] [id number] [place] [address] 75347- 1848 Aug, [facility] [id number] [place] [address] 16421- 1527 Jul, [facility] [id number] [place] [address] 23105- 5982 Jul, [facility] [address] [address] 46[address] Jun, [facility] [address] [place] [address] 56163- 9657 Jun, [facility] [address], [place] [address] 5145 Jun, [facility] [address] 136[address] Jun, [facility] [address] [address] May, [facility] [id number] [place] [address] 192083- 7194 May, [facility] [address] [address] May, [facility] [address] [place] [id number] [place] [address] 5656 May, [facility] [place] [facility] [address] [id number] [place] [address]- 7744 May, [facility] [place] [facility] [address] [id number] [place] [address]- 5491 May, [facility] [place] [facility] [address] [id number] [place] [address] May, [facility] [place] [facility] [address] [id number] [place] [address]- 9316 Apr, [facility] [place] [facility] [address] [id number] [place] [address]- 7882 Apr, [facility] [place] [facility] [address] [id number] [place] [address]- 1055 Apr, [facility] [place] [facility] [address] [id number] [place] [address]- 4081 Dec, [facility] [place] [facility] [address] [id number] [place] [address]- 6709 Dec, [facility] [place] [facility] [address] [id number] [place] [address]- 4340 Nov, [facility] [place] [facility] [address] [id number] [place] [address]- 5298 Nov, [facility] [place] [facility] [address] [id number] [place] [address]- 7484 Nov, [facility] [place] [facility] [address] [id number] [place] [address]- 9762 Nov, [facility] [place] [facility] [address] [id number] [place] [address]- 7174 Nov, [facility] [place] [facility] [address] [id number] [place] [address]- 8241 Nov, [facility] [place] [facility] [address] [id number] [place] [address]- 0412 Nov, [facility] [place] [facility] [address] [id number] [place] [address]- 5164 Nov, [facility] [place] [facility] [address] [id number] [place] [address]- 8489 Nov, [facility] [place] [facility] [address] [id number] [place] [address]- 8746 Nov, [facility] [place] [facility] [address] [id number] [place] [address]- 3656 Nov, [facility] [place] [facility] [address] [id number] [place] [address]- 7768 Nov, [facility] [place] [facility] [address] [id number] [place] [address]- 5145 Oct, [facility] [place] [facility] [address] [id number] [place] [address]- 3716 Oct, [facility] [place] [facility] [address] [id number] [place] [address]- 2016 September, [facility] [place] [facility] [address] [id number] [place] [address]- 3649 September, [facility] [place] [facility] [address] [id number] [place] [address]- 7075 Aug, [facility] [place] [facility] [address] [id number] [place] [address]- 7640 Aug, [facility] [place] [facility] [address] [id number] [place] [address]- 2673 Aug, [facility] [place] [facility] [address] [id number] [place] [address]- 6348 Aug, [facility] [place] [facility] [address] [id number] [place] [address]- 6988 Aug, [facility] [place] [facility] [address] [id number] [place] [address]- 3179 Aug, [facility] [place] [facility] [address] [id number] [place] [address]- 2218 Aug, [facility] [place] [facility] [address] [id number] [place] [address]- 9273 Aug, [facility] [place] [facility] [address] [id number] [place] [address]- 9357 Aug, [facility] [place] [facility] [address] [id number] [place] [address]- 6789 Aug, [facility] [place] [facility] [address] [id number] [place] [address]- 8752 Aug, [facility] [place] [facility] [address] [id number] [place] [address]- 0748 Jul, [facility] [place] [facility] [address] [id number] [place] [address]- 3808 Jul, [facility] [place] [facility] [address] [id number] [place] [address]- 9551 Jul, [facility] [place] [facility] [address] [id number] [place] [address]- 7117 Jul, [facility] [place] [facility] [address] [id number] [place] [address]- 0884 Jul, [facility] [place] [facility] [address] [facility] [id number] [place] [address]- 4813 Jul, [facility] [place] [facility] [address] [id number] [place] [address]- 9195 Jul, [facility] [place] [facility] [address] [id number] [place] [address]- 0606 Jun, [facility] [place] [facility] [address] [id number] [place] [address]- 9881 Jun, [facility] [place] [facility] [address] [id number] [place] [address]- 1167 Jun, [facility] [place] [facility] [address] [facility] [id number] [place] [address]- 7504 Jun, [facility] [place] [facility] [address] [id number] [place] [address]- 4250 Jun, [facility] [place] [facility] [address] [id number] [place] [address]- 4779 Jun, [facility] [place] [facility] [address] [id number] [place] [address]- 5232 Jun, [facility] [place] [facility] [address] [id number] [place] [address]- 6238 Jan, [facility] [address] [id number] [place] [address]- 3227 Nov, [facility] [place] [facility] [address] [id number] [place] [address]- 0569 Nov, [facility] [address] [facility] [id number] [place] [address]- 5178 Aug, [facility] [place] [facility] [address] [id number] [place] [address]- 0888 Jun, [facility] [place] [facility] [address] [id number] [place] [address]- 6650 Jun, [facility] [place] [facility] [address] [facility] [id number] [place] [address]- 0342 Jun, [facility] [place] [facility] [address] [facility] [id number] [place] [address]- 8903 May, [facility] [place] [facility] [address] [id number], [place] [address]- 5181 May, [facility] [place] [facility] [address] [id number] [place] [address]- 0615 May, [facility] [place] [facility] [address] [id number] [place] [address]- 4261 May, [facility] [place] [facility] [address] [id number] [place] [address]- 1588 Apr, [facility] [place] [facility] [address] [id number], [place] [address]- 3273 Apr, [facility] [place] [facility] [address] [id number] [place] [address]- 6689 Apr, [facility] [place] [facility] [address] [id number] [place] [address]- 0759 08 Apr, 2011 [facility] [place] [facility] [address] [id number] [place] [address]- 5872 10 Mar, 2011 [facility] [place] [facility] [address] [id number] [place] [address]- 7879 13 Feb, 2011 [facility] [place] [facility] [address] [id number] [place] [address]- 9041 16 Dec, 2010 [facility] [place] [facility] [address] [id number] [place] [address]- 7948 Nov, [facility] [place] [facility] [address] [facility] [id number] [place] [address]- 3662 Jul, [facility] [place] [facility] [address] [id number] [place] [address]- 9858 30 Apr, 2010 [facility] [place] [facility] [address] [id number] [place] [address]- 0283 29 Apr, 2010 [facility] [place] [facility] [address] [facility] [id number] [place] [address]- 9267 Apr, [facility] [place] [facility] [address] [id number] [place] [address]- 1083 Mar, [facility] [place] [facility] [address] [id number] [place] [address]- 9674 18 Mar, 2010 [facility] [place] [facility] [address] [id number] [place] [address]- 5889 05 Mar, 2010 [facility] [place] [facility] [address] [facility] [id number] [place] [address]- 3093 Feb, [facility] [place] [facility] [address] [facility] [id number] [place] [address]- 6902 Feb, [facility] [place] [facility] [address] [facility] [id number] [place]- [address] 14 Feb, 2010 [facility] [address] [facility] [id number], [place] [address]- 0569 Feb, [facility] [address] [facility] [id number], [place] [address]- 2202 Dec, [facility] [address] [facility] [id number], [place] [address]- 2700 Oct, [facility] [address] [facility] [id number], [place] [address]- 9822 Oct, IMMUNIZATIONS No Known Immunizations SOCIAL HISTORY Never Assessed REASON FOR VISIT PT follow-up PLAN OF CARE Activity Details Follow Up 2 Weeks Reason:F/U PT VITAL SIGNS MEDICATIONS Unknown Medications RESULTS No Results PROCEDURES Procedure Date Ordered Result Body Site THERAPEUTIC EXERCISES November 25, 2016 INSTRUCTIONS MEDICATIONS ADMINISTERED No Known Medications MEDICAL (GENERAL) HISTORY Type Description Date Medical [...]
--- NOTE | 2017-10-05 20:46 | ED Upper Extremity ---
General Stated Complaint: FELL,LEFT WRIST PAIN Source: patient Exam Limitations: other (SPEECH RAPID AND MUMBLES AND DIFFICULT TO UNDER STAND AND DIFFICULT TO KEEP ON SUBJECT) History of Present Illness Date Seen by Provider: October 05, 2017 Time Seen by Provider: 20:39 Initial Comments PT ARRIVES VIA POV PT SATES SHE SLIPPED ON WET KITCHEN FLOOR AND LANDED ON OUTSTRETCHED LEFT HAND C/O LEFT WRIST PAIN OCCURRED 2 HOURS AGO AT HOME DENIES ANY OTHER INJURIES OR PAIN NO PRIOR INJURIES TO THIS WRIST PT STATES SHE HAS RHEUMATOID ARTHRITIS AND ALWAYS HAS JOINT PAIN HAS NOT TAKEN ANYTHING FOR PAIN NO PARESTHESIAS OR MOTOR DEFICITS PCP: DR. FRYE Allergies and Home Medications Allergies Coded Allergies: methotrexate (Unverified Allergy, Severe, SEIZURE, 12/25/09) nitrofurantoin (Unverified Allergy, Mild, 09/26/08) ziprasidone (Unverified Allergy, Mild, 08/23/09) aripiprazole (Verified Adverse Reaction, Intermediate, TONGUE SWELLING, ) Home Medications Alprazolam 1 Mg Tablet, 1 MG PO BID PRN for ANXIETY, (Reported) Atenolol 50 Mg Tablet, 50 MG PO DAILY, (Reported) Lisinopril 40 Mg Tablet, 40 MG PO DAILY, (Reported) Naproxen 500 Mg Tablet, 500 MG PO BID PRN for PAIN Prescribed by: HONORIO AGEE on 04/18/16 1601 Naproxen 500 Mg Tablet, 500 MG PO BID Prescribed by: KRIS WHALEN on 05/23/16 2231 Omeprazole 40 Mg Capsule.dr, 40 MG PO DAILY Prescribed by: HONORIO AGEE on 04/18/16 1601 Ondansetron HCl 8 Mg Tablet, 8 MG SL PRN PRN for NAUSEA, (Reported) Valacyclovir HCl 1,000 Mg Tablet, 1,000 MG PO DAILY, (Reported) Patient Home Medication List Home Medication List Reviewed: Yes Constitutional: no symptoms reported Musculoskeletal: see HPI Skin: no symptoms reported Psychiatric/Neurological: No Symptoms Reported Past Wvqwwjc-Nztkjx-Xidftf Hx Patient Social History Alcohol Use: Rarely Uses (USED TEEN) Recreational Drug Use: Yes (THC, +IV METH) Drug of Choice: THC, + IV METH Smoking Status: Current Everyday Smoker (1 1/2 PPD) Type Used: Cigarettes Recent Hopitalizations: No Immunizations Up To Date Tetanus Booster (TDap): More than 5yrs PED Vaccines UTD: No Date of Influenza Vaccine: May 05, 2014 Seasonal Allergies Seasonal Allergies: No Past Medical History Surgeries: Yes Adenoidectomy, Breast, Cardiac, Gallbladder, 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, Oophorectomy, Tonsillectomy, Vascular Surgery Respiratory: Yes (SPONTANEOUS RIGHT PNEUMOTHORAX) Pneumonia, Chronic Bronchitis, COPD Cardiac: Yes Hypertension Neurological: Yes Concussion, Headaches /Migraines, Seizure Disorder, Stroke, Traumatic Brain Injury 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 Sexually Transmitted Disease: No Genitourinary: Yes Bladder Infection, Kidney Stones Gastrointestinal: Yes (HEPATITIS C --NO TREATMENT) Gastroesophageal Reflux, Liver Disease/Jaundice, Chronic Constipation, Pancreatitis, Chronic Diarrhea, Hepatitis, Ulcer Musculoskeletal: Yes Degenerate Disk Disease, Arthritis, Fibromyalgia, Rheumatoid Arthritis, Back Injury, Chronic Back Pain, Fractures Endocrine: No HEENT: No (EDENTULOUS) Cancer: No Psychosocial: Yes (PLYSUBSTANCE ABUSE) Anxiety, Bipolar, Depression Integumentary: No Blood Disorders: No Physical Exam Vital Signs Vital Signs - First Documented 10/05/17 20:40 Temp 97.4 Pulse 89 Resp 20 B/P (MAP) 155/101 (119) Pulse Ox 97 O2 Delivery Room Air Capillary Refill : General Appearance: WD/WN, no apparent distress, other (SPEECH VERY RAPID, MUMBLED AND TALKS NON-STOP, DIFFICULT TO KEEP ON SUBJECT) HEENT: other (EDENTULOUS, CONSTANT MOUTH MOVEMENTS) Elbow/Forearm: normal inspection, non-tender, no evidence of injury, normal ROM Wrist: Yes bone tenderness, Yes limited ROM, Yes pain, Yes soft tissue tenderness; No swelling Hand: normal inspection, non-tender, no evidence of injury, normal ROM Neurologic/Tendon: normal sensation, normal motor functions, normal tendon functions Neurologic/Psychiatric: flour tester II-XII nml as tested, no motor/sensory deficits, alert, normal mood/affect, oriented x 3 Skin: normal color, warm/dry, other (NO EXTERNAL EVIDENCE OF TRAUMA) Procedures/Interventions Splinting and Joint Reduction : Splints: Guys Wrist Progress/Results/Core Measures Results/Orders My Orders Orders - KRIS WHALEN DO Wrist, Left, 3 Views Or More (10/05/17 20:45) Vital Signs/I&O 10/05/17 20:40 Temp 97.4 Pulse 89 Resp 20 B/P (MAP) 155/101 (119) Pulse Ox 97 O2 Delivery Room Air Diagnostic Imaging Comments XRAYS LEFT WRIST--NO ACUTE PROCESS, CHRONIC/STABLE CHANGES--PER RADIOLOGIST REPORT @ [id number] Reviewed: Reviewed by Me Departure Impression Primary Impression: Left wrist sprain Disposition: HOME, SELF-CARE Condition: Stable Departure-Patient Inst. Referrals: [facility] (PCP/Family) Primary Care Physician Patient Instructions: Wrist Sprain (DC) Add. Discharge Instructions: WEAR SPLINT NEEDED FOR COMFORT ICE TO AREA AT 20 MINUTE INTERVALS ELEVATE HAND MUCH POSSIBLE TYLENOL AND MOTRIN AND YOUR HOME TRAMADOL NEEDED FOR PAIN FOLLOW UP WITH YOUR DR IN 1 WEEK IF NO BETTER KRIS WHALEN DO October 05, 2017 20:46
--- NOTE | 2017-10-05 21:03 | Diagnostic Imaging Report ---
INDICATION: Fall, left wrist pain 3 views of the left wrist show no fracture, dislocation or other acute bony abnormality. There is irregularity of the distal radial metaphysis which may be related to old injury and is stable compared to prior study from 10/31/2013. There are degenerative changes at the carpometacarpal joint of the thumb. IMPRESSION: No acute abnormality is seen. Dictated by: Dictated on workstation # [id number]
[2017-10-05] MEDS ORDERED: LACTATED RINGERS 1,000 ML IV ONE (21:20)
[2017-10-05 21:24] VITALS: BP 155/101
== END 2017-10-05 21:24 | disposition home or self-care (01) ==
LOC: EDUNIT# 20:15 → ER 20:16
DX: S63.502A Unspecified sprain of left wrist, initial encounter (principal); J44.9 Chronic obstructive pulmonary disease, unspecified; I10 Essential (primary) hypertension; G40.909 Epilepsy, unspecified, not intractable, without status epilepticus; G43.909 Migraine, unspecified, not intractable, without status migrainosus; F41.9 Anxiety disorder, unspecified; F31.9 Bipolar disorder, unspecified; K21.9 Gastro-esophageal reflux disease without esophagitis; F17.210 Nicotine dependence, cigarettes, uncomplicated; Z87.19 Personal history of other diseases of the digestive system; Z90.89 Acquired absence of other organs; Z90.710 Acquired absence of both cervix and uterus; Z87.81 Personal history of (healed) traumatic fracture; Z88.8 Allergy status to other drugs, medicaments and biological substances; Z88.1 Allergy status to other antibiotic agents; M06.9 Rheumatoid arthritis, unspecified; W01.198A Fall on same level from slipping, tripping and stumbling with subsequent striking against other object, initial encounter
CPT/HCPCS: 73110; 99282

== ENCOUNTER → 2018-05-08 | Outpatient (CLI) | payer MEDICAID ==
--- NOTE | 2018-05-08 20:54 | Diagnostic Imaging Report ---
INDICATION: Routine screening. COMPARISON: Prior mammogram from 04/25/2017. EXAMINATION: 2D and 3D bilateral screening mammography was performed with CAD. The current study was also evaluated with a Computer Aided Detection (CAD) system. FINDINGS: Scattered fibroglandular densities are identified, bilaterally. The parenchymal pattern is stable. No dominant mass or malignant appearing microcalcifications are seen. The axillae are unremarkable. IMPRESSION: No mammographic features suspicious for malignancy are identified. ACR BI-RADS Category 1: Negative. Result letter will be mailed to the patient. Note: At least 10% of breast cancer is not imaged by mammography. Dictated on workstation # [id number]
== END ==
LOC: RAD 09:42
PROVIDERS: ATTEND Nurse Practitioner Primary Care
DX: Z12.31 Encounter for screening mammogram for malignant neoplasm of breast (principal)
CPT/HCPCS: 77067

== ENCOUNTER 2018-05-15 02:43 | Emergency (ER) | payer MEDICAID | END 2018-05-15 04:54 | disposition home or self-care (01) | LOC: ER 02:43 ==

== ENCOUNTER 2018-07-14 12:30 | Emergency (ER) | payer MEDICAID ==
[~2018-07-14] VITALS: Ht 152.4 cm; Wt 79.4 kg
--- OUTSIDE RECORDS SUMMARY | 2018-07-14 13:09 | XMS REPORT | Clinical Summary ---
Author Author [facility] Organization [facility] Address Unknown Phone Unavailable Care Team Providers Care Automotive Brake Technician Name Role Phone PCP Unavailable Source Comments Some departments are not documenting in the electronic medical record. If you do not see the information that you expected, contact Release of Information in the Health Information Management department at [phone] for further assistance in locating additional records.[facility] Allergies Not on File Medications Not on file Active Problems Not on file Social History Date Tobacco Use Types Packs/Day Years Used Never Assessed Sex Assigned at Date Recorded Not on file Industry Job Start Date Occupation Not on file Not on file Not on file Travel End Travel History Travel Start No recent travel history available. Last Filed Vital Signs Not on file Plan of Treatment Health Maintenance Due Date Last Done Comments PHYSICAL (COMPREHENSIVE) 1975 EXAM HIV SCREENING 1983 DTAP/TDAP VACCINES (1 - 1986 Tdap) CERVICAL CANCER SCREENING 1998 BREAST CANCER SCREENING 2008 COLORECTAL CANCER 2018 SCREENING SHINGLES RECOMBINANT 2018 VACCINE (1 of 2) INFLUENZA VACCINE 12/10/2018 Results Not on filefrom Last 3 Months
--- OUTSIDE RECORDS SUMMARY | 2018-07-14 13:10 | XMS REPORT ---
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 Name Role Phone JALIL FRYE Unavailable PROBLEMS Type Condition ICD9-CM Code AYF31-GQ Code Onset Dates Condition Status SNOMED Code Problem Gastroesophageal reflux disease without esophagitis K21.9 Active 998596090 Problem Depressive disorder, not elsewhere classified F32.9 Active 98269361 Problem Seasonal allergic rhinitis, unspecified allergic rhinitis trigger J30.2 Active 631078956 Problem Psoriasis L40.9 Active 2611164 Problem KARY (generalized anxiety disorder) F41.1 Active 85984357 Problem Other chronic pain G89.29 Active 13737195 Problem Porokeratosis Q82.8 Active 850677175 Problem MDD (major depressive disorder), recurrent episode, moderate F33.1 Active 383129763 Problem Situational depression F43.21 Active 85684573 Problem Essential hypertension I10 Active 83873916 Problem Methamphetamine abuse F15.10 Active 621286898 Problem 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 Active 02494395 Problem Chronic obstructive pulmonary disease, unspecified COPD type J44.9 Active 00130862 Problem 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 Active 021723803599742 Problem Epilepsy, unspecified, not intractable, without status epilepticus G40.909 Active 225398685 Problem Chronic hepatitis C B18.2 Active 810188841 Problem Rheumatoid arthritis involving multiple sites, unspecified rheumatoid factor presence M06.9 Active 699473066 Problem Anxiety F41.9 Active 26142904 Problem Panic attacks F41.0 Active 984329041 ALLERGIES No Information ENCOUNTERS Encounter Location Date Diagnosis [facility] [address] [facility] [id number] [address] Apr, [facility] [address] [facility] [id number], [place] [address] 18 Dec, 2018 Screening for breast cancer Z12.31 [facility] [id number] [place] [place] [id number] [place] [address] 78267- 1427 07 Apr, 2018 Chronic obstructive pulmonary disease, unspecified COPD type J44.9 [place] [id number] [place] [address] 88498- 4379 06 Apr, 2018 [place] [id number] [place] [address] 71275- 5415 Apr, Essential hypertension I10 [place] [address] [address]- [address] Apr, Essential hypertension I10 ; Psoriasis L40.9 and Epistaxis R04.0 [place] [id number] [place] [address] 88108- 3677 Apr, [place] [id number] [place] [address] 23699- 2777 Mar, MDD (major depressive disorder), recurrent episode, moderate F33.1 [place] [id number] [place] [address] 41731- 6931 08 Mar, 2018 MDD (major depressive disorder), recurrent episode, moderate F33.1 and KARY (generalized anxiety disorder) F41.1 [place] [id number] [place] [address] 31736- 9367 18 Feb, 2018 Acute non-recurrent pansinusitis J01.40 and Encounter for immunization Z23 [place] [id number] [place] [address] 63243- 3052 04 Feb, 2018 Situational depression F43.21 and Screening for breast cancer Z12.31 [place] [id number] [place] [address] 48337- 5190 03 Feb, 2018 Chronic obstructive pulmonary disease, unspecified COPD type J44.9 [place] [id number] [place] [address] 40217- 7501 Oct, Essential hypertension I10 ; Rheumatoid arthritis involving multiple sites, unspecified rheumatoid factor presence M06.9 and Chronic hepatitis C B18.2 [place] [id number] [place] [address] 20391- 7190 15 Oct, 2017 [facility] [id number] [place] [address] 73902- 9940 15 Oct, 2017 Fissure in skin of foot R23.4 [place] [id number] [place] [address] 01751- 8414 07 Oct, 2017 Essential hypertension I10 [place] [id number] [place] [address] 31440- 5046 Oct, 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 [place] [address] 64324- 6195 September, [place] [address] 23773- 6787 September, Pain in right ankle and joints of right foot M25.571 and Other chronic pain G89.29 [place] [id number] [place] [address] 63398- 1534 Aug, Essential hypertension I10 ; Rheumatoid arthritis involving multiple sites, unspecified rheumatoid factor presence M06.9 ; Gastroesophageal reflux disease without esophagitis K21.9 ; Anxiety F41.9 ; 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 and Dermatitis L30.9 [place] [id number] [place] [address] 11668- 5819 Aug, Onychomycosis B35.1 ; Peroneal tendinitis, unspecified laterality M76.70 and Porokeratosis Q82.8 [place] [id number] [place] [address] 30228- 5182 Jul, Porokeratosis Q82.8 ; Hyperhidrosis L74.519 and Callus of foot L84 [place] [id number] [place] [address] 48491- 5355 Apr, [place] [address] 56766- 1908 Apr, [place] [address] 79419- 0139 Mar, Well woman exam (no gynecological exam) Z00.00 ; Plantar wart B07.0 ; Pain of left foot M79.672 ; Pain in right foot M79.671 and Rheumatoid arthritis involving multiple sites, unspecified rheumatoid factor presence M06.9 [place] [address] 59980- 6907 Nov, Bilateral low back pain, with sciatica presence unspecified M54.5 [place] [address] 21491- 9176 Oct, Chronic obstructive pulmonary disease, unspecified COPD type J44.9 [place] [address] 94310- 8679 September, [place] [address] 86335- 0052 September, Bilateral low back pain, with sciatica presence unspecified M54.5 [facility] [address] [place] [address] 38442 -6873 September, Body aches R52 and Upper respiratory infection, acute J06.9 [place] [address] [place] [address] September, [facility] [address] [place] [address] 74689 -6991 September, Left wrist injury, initial encounter S69.92XA and Contusion of wrist, left S60.212A [place] [address] 06609- 6183 Aug, Depressive disorder, not elsewhere classified F32.9 [facility] [address] 58620 -0099 Jul, Seasonal allergic rhinitis, unspecified allergic rhinitis trigger J30.2 ; Rheumatoid arthritis flare M06.9 and Essential hypertension I10 [facility] [address] [address] 379[address] 08 Jul, 2016 [facility] [id number] [place] [address] 98206- 4622 Jul, Essential hypertension I10 [place] [id number] [place] [address] 22257- 3786 Jul, Essential hypertension I10 ; Other chronic pain G89.29 ; Rheumatoid arthritis involving multiple sites, unspecified rheumatoid factor presence M06.9 and Insomnia due to medical condition G47.01 [place] [id number] [place] [address] 91240- 9489 Jul, [place] [id number] [place] [address] 76209- 3654 Jul, [place] [id number] [place] [address] 26244- 0259 Jun, [facility] [id number] [place] [address] 02291- 9507 Jun, 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 ; Essential hypertension I10 ; Chronic obstructive pulmonary disease, unspecified COPD type J44.9 ; Panic attacks F41.0 ; Hot flashes R23.2 ; Rheumatoid arthritis involving multiple sites, unspecified rheumatoid factor presence M06.9 ; Pain in thoracic spine M54.6 ; Other chronic pain G89.29 and Arthralgia, unspecified joint M25.50 [facility] [address] [address] May, Rheumatoid arthritis flare M06.9 [facility] [id number] [place] [address] 23117 -4884 May, Left lower quadrant pain R10.32 ; Abdominal pain in female R10.9 ; Constipation, unspecified constipation type K59.00 and Gastroesophageal reflux disease without esophagitis K21.9 [facility] [id number] [place] [address] 66825 -7859 Mar, Herpes genitalis in women A60.09 ; Bilateral impacted cerumen H61.23 and Injury of right ring finger, initial encounter S69.91XA [facility] [id number] [place] [address] 87634- 1094 Mar, [facility] [id number] [place] [address] 81272- 7869 Nov, Essential hypertension I10 ; Chronic hepatitis C B18.2 ; Arthralgia, unspecified joint M25.50 ; Chronic obstructive pulmonary disease, unspecified COPD type J44.9 ; Methamphetamine abuse F15.10 ; Simple chronic bronchitis J41.0 ; Hemorrhoids, unspecified hemorrhoid type K64.9 and Anxiety F41.9 [facility] [id number] [place] [address] 06982 -5187 Nov, [facility] [address] 34317- 0648 Feb, Elevated glucose R73.09 [place] [address] 24983- 9564 Feb, Elevated glucose R73.09 [place] [address] 51752- 7144 Oct, [facility] [id number] [place] [address] 88964- 6368 Oct, [facility] [id number] [place] [address] 61262- 1399 Oct, Essential hypertension, benign 401.1 ; Chronic hepatitis C without mention of hepatic coma 070.54 ; Anxiety state, unspecified 300.00 ; Genital herpes 054.10 ; Methamphetamine abuse 305.70 and Excessive cerumen in both ear canals 380.4 [facility] [id number] [place] [address] 14180- 4217 Oct, [facility] [address] 55485- 7750 Aug, [facility] [place] [facility] [address] [id number] [place] [address]- 7742 Aug, [facility] [place] [facility] [address] [id number] [place] [address]- 7363 Jul, [facility] [place] [facility] [address] [id number] [place] [address]- 5142 Jul, [facility] [place] [facility] [address] [id number] [place] [address]- 3891 Jun, [facility] [place] [facility] [address] [id number] [place] [address]- 5992 Jun, [facility] [place] [facility] [address] [id number] [place] [address]- 8606 Jun, [facility] [place] [facility] [address] [id number] [place] [address]- 5231 Jun, [facility] [place] [facility] [address] [id number] [place] [address]- 3124 May, [facility] [place] [facility] [address] [id number] [place] [address]- 1846 May, [facility] [place] [facility] [address] [id number] [place] [address]- 9170 May, [facility] [place] [facility] [address] [id number] [address]- 1366 May, [facility] [place] [facility] [address] [id number], [place] [address]- 0339 May, [facility] [place] [facility] [address] [id number] [place] [address]- 7657 May, [facility] [place] [facility] [address] [id number] [place] [address]- 6166 May, [facility] [place] [facility] [address] [id number], [place] [address]- 2912 Apr, [facility] [place] [facility] [address] [id number], [place] [address]- 5602 Apr, [facility] [place] [facility] [address] [id number] [place] [address]- 0003 Apr, [facility] [place] [facility] [address] [id number] [place] [address]- 4911 Dec, [facility] [place] [facility] [address] [id number] [place] [address]- 5321 Dec, [facility] [place] [facility] [address] [id number] [place] [address]- 7337 Nov, [facility] [place] [facility] [address] [id number] [place] [address]- 7192 Nov, [facility] [place] [facility] [address] [id number] [place] [address]- 6873 Nov, [facility] [place] [facility] [address] [id number] [place] [address]- 2294 Nov, [facility] [place] [facility] [address] [id number] [place] [address]- 8050 Nov, [facility] [place] [facility] [address] [id number] [place] [address]- 1499 Nov, [facility] [place] [facility] [address] [id number] [place] [address]- 5478 Nov, [facility] [place] [facility] [address] [id number] [place] [address]- 3757 Nov, [facility] [place] [facility] [address] [id number] [place] [address]- 0483 Nov, [facility] [place] [facility] [address] [id number] [place] [address]- 5988 Nov, [facility] [place] [facility] [address] [id number] [place] [address]- 3676 Nov, [facility] [place] [facility] [address] [id number] [place] [address]- 5315 Nov, [facility] [place] [facility] [address] [id number] [place] [address]- 3465 Oct, [facility] [place] [facility] [address] [id number] [place] [address]- 4416 Oct, [facility] [place] [facility] [address] [id number] [place] [address]- 2856 September, [facility] [place] [facility] [address] [id number] [place] [address]- 6783 September, [facility] [place] [facility] [address] [id number] [place] [address]- 8890 Aug, [facility] [place] [facility] [address] [id number] [place] [address]- 4214 Aug, [facility] [place] [facility] [address] [id number] [place] [address]- 7600 Aug, [facility] [place] [facility] [address] [id number] [place] [address]- 7516 Aug, [facility] [place] [facility] [address] [id number] [place] [address]- 7128 Aug, [facility] [place] [facility] [address] [id number] [place] [address]- 1417 Aug, [facility] [place] [facility] [address] [id number] [place] [address]- 4364 Aug, [facility] [place] [facility] [address] [id number] [place] [address]- 2482 Aug, [facility] [place] [facility] [address] [id number] [place] [address]- 2706 Aug, [facility] [place] [facility] [address] [id number] [place] [address]- 1525 Aug, [facility] [place] [facility] [address] [id number] [place] [address]- 8698 08 Aug, 2013 [facility] [place] [facility] [address] [id number] [place] [address]- 5067 Jul, [facility] [place] [facility] [address] [id number] [place] [address]- 1946 Jul, [facility] [place] [facility] [address] [id number] [place] [address]- 7703 Jul, [facility] [place] [facility] [address] [facility] [id number] [place] [address]- 0602 Jul, [facility] [place] [facility] [address] [id number] [place] [address]- 3567 05 Jul, 2013 [facility] [place] [facility] [address] [id number] [place] [address]- 2410 Jul, [facility] [place] [facility] [address] [id number] [place] [address]- 3853 Jul, [facility] [place] [facility] [address] [facility] [id number] [place] [address]- 6411 24 Jun, 2013 [facility] [place] [facility] [address] [id number] [place] [address]- 8430 Jun, [facility] [place] [facility] [address] [facility] [id number] [place] [address]- 7212 Jun, [facility] [place] [facility] [address] [facility] [id number] [place] [address]- 0244 Jun, [facility] [place] [facility] [address] [facility] [id number] [place] [address]- 3973 Jun, [facility] [place] [facility] [address] [facility] [id number] [place] [address]- 5837 14 Jun, 2013 [facility] [place] [facility] [address] [facility] [id number] [place] [address]- 3215 14 Jun, 2013 [facility] [place] [facility] [address] [facility] [id number] [place] [address]- 2034 04 Jan, 2012 [facility] [place] [facility] [address] [facility] [id number] [place] [address]- 7587 Nov, [facility] [place] [facility] [address] [id number] [place] [address]- 3018 Nov, [facility] [place] [facility] [address] [id number] [place] [address]- 9271 Aug, [facility] [place] [facility] [address] [id number] [place] [address]- 1436 Jun, [facility] [place] [facility] [address] [id number] [place] [address]- 6476 Jun, [facility] [place] [facility] [address] [id number] [place] [address]- 8967 Jun, [facility] [place] [facility] [address] [id number] [place] [address]- 0484 May, [facility] [place] [facility] [address] [id number] [place] [address]- 7419 May, [facility] [place] [facility] [address] [id number] [place] [address]- 5206 May, [facility] [place] [facility] [address] [id number] [place] [address]- 5720 May, [facility] [place] [facility] [address] [id number] [place] [address]- 1468 Apr, [facility] [place] [facility] [address] [id number] [place] [address]- 4062 Apr, [facility] [place] [facility] [address] [id number] [place] [address]- 3416 Apr, [facility] [place] [facility] [address] [id number] [place] [address]- 6027 Apr, [facility] [place] [facility] [address] [id number] [place] [address]- 5954 Mar, [facility] [place] [facility] [address] [id number] [place] [address]- 6017 13 Feb, 2011 [facility] [place] [facility] [address] [id number] [place] [address]- 7244 Dec, [facility] [address] [facility] [id number], [place] [address]- 0015 Nov, [facility] [address] [facility] [id number], [place] [address]- 2982 Jul, [facility] [address] [facility] [id number] 6268 Apr, [facility] [address] [facility] [id number] 3136 Apr, [facility] [address] [facility] [id number] [place] [address]- 7476 Apr, [facility] [address] [facility] [id number], [place] [address]- 0562 Mar, [facility] [address] [facility] [id number], [place] [address]- 3695 Mar, [facility] [address] [facility] [id number], [place] [address]- 5948 Mar, [facility] [address] [facility] [id number], [place] [address]- 6550 Feb, [facility] [address] [facility] [id number], [place] [address]- 2365 Feb, [facility] [address] [facility] [id number], [place] [address]- 0918 Feb, [facility] [address] [facility] [id number], [place] [address]- 3341 Feb, [facility] [address] [facility] [id number], [place] [address]- 2508 Dec, [facility] [address] [facility] [id number], [place] [address]- 8004 Oct, [facility] [address] [facility] [id number], [place] [address]- 8500 Oct, IMMUNIZATIONS No Known Immunizations SOCIAL HISTORY Never Assessed REASON FOR VISIT Requests return call PLAN OF CARE Activity Details Pending Test Mammogram, Bilateral Screening VITAL SIGNS MEDICATIONS Unknown Medications RESULTS No Results PROCEDURES No Known procedures INSTRUCTIONS MEDICATIONS ADMINISTERED No Known Medications MEDICAL [...]
--- OUTSIDE RECORDS SUMMARY | 2018-07-14 13:10 | XMS REPORT ---
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 Name Role Phone JALIL FRYE Unavailable PROBLEMS Type Condition ICD9-CM Code DHB80-YD Code Onset Dates Condition Status SNOMED Code Problem Gastroesophageal reflux disease without esophagitis K21.9 Active 284693624 Problem Depressive disorder, not elsewhere classified F32.9 Active 15545663 Problem Seasonal allergic rhinitis, unspecified allergic rhinitis trigger J30.2 Active 955254663 Problem Psoriasis L40.9 Active 1031887 Problem KARY (generalized anxiety disorder) F41.1 Active 29548135 Problem Other chronic pain G89.29 Active 51413320 Problem Porokeratosis Q82.8 Active 357853225 Problem MDD (major depressive disorder), recurrent episode, moderate F33.1 Active 783724587 Problem Situational depression F43.21 Active 87124051 Problem Essential hypertension I10 Active 19210571 Problem Methamphetamine abuse F15.10 Active 642332949 Problem 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 Active 63361656 Problem Chronic obstructive pulmonary disease, unspecified COPD type J44.9 Active 22756021 Problem 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 Active 461653435768643 Problem Epilepsy, unspecified, not intractable, without status epilepticus G40.909 Active 380588795 Problem Chronic hepatitis C B18.2 Active 198210604 Problem Rheumatoid arthritis involving multiple sites, unspecified rheumatoid factor presence M06.9 Active 154483151 Problem Anxiety F41.9 Active 97969996 Problem Panic attacks F41.0 Active 852912322 ALLERGIES No Information ENCOUNTERS Encounter Location Date Diagnosis [facility] [address] [facility] [id number], [place] [address] Apr, [facility] [address] [facility] [id number], [place] [address] Apr, Chronic obstructive pulmonary disease, unspecified COPD type J44.9 [place] [address] [place] [id number] [place] [address]- [address]23 Apr, [place] [address] [address]- [address] Apr, Essential hypertension I10 [place] [address] [address]- 7205 Apr, Essential hypertension I10 ; Psoriasis L40.9 and Epistaxis R04.0 [place] [address] [address]- [address] Apr, [place] [address] [address]- [address] Mar, MDD (major depressive disorder), recurrent episode, moderate F33.[address] [address]- [address]479 Mar, MDD (major depressive disorder), recurrent episode, moderate F33.1 and KARY (generalized anxiety disorder) F41.1 [place] [address] [place] [id number] [place] [address] 92555- 8416 18 Feb, 2018 Acute non-recurrent pansinusitis J01.40 and Encounter for immunization Z23 [address] [address]- [address] Feb, Situational depression F43.21 and Screening for breast cancer Z12.31 [place] [address] [place] [id number] [place] [address] 18414- 0844 Feb, Chronic obstructive pulmonary disease, unspecified COPD type J44.9 [place] [address] [address]- [address] Oct, Essential hypertension I10 ; Rheumatoid arthritis involving multiple sites, unspecified rheumatoid factor presence M06.9 and Chronic hepatitis C B18.2 [place] [address] [place] [id number] [place] [address] 05166- 1800 Oct, [place] [address] [place] [id number] [place] [address] 68258- 1552 15 Oct, 2017 Fissure in skin of foot R23.4 [place] [address] [address]- 8434 07 Oct, 2017 Essential hypertension I10 [address] [address]- 3307 Oct, 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 [place] [address] [address]758- 5771 September, [address] [address]- 8[address] September, Pain in right ankle and joints of right foot M25.571 and Other chronic pain G89.[address] [address]- 7032 Aug, Essential hypertension I10 ; Rheumatoid arthritis involving multiple sites, unspecified rheumatoid factor presence M06.9 ; Gastroesophageal reflux disease without esophagitis K21.9 ; Anxiety F41.9 ; 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 and Dermatitis L30.[address] [address]- [address] Aug, Onychomycosis B35.1 ; Peroneal tendinitis, unspecified laterality M76.70 and Porokeratosis Q82.8 [place] [address] [place] [id number] [place] [address]92- 7104 Jul, Porokeratosis Q82.8 ; Hyperhidrosis L74.519 and Callus of foot L84 [place] [address] [address]- 1835 Apr, [address] [address]- 1475 Apr, [place] [address] [address]- 5034 Mar, Well woman exam (no gynecological exam) Z00.00 ; Plantar wart B07.0 ; Pain of left foot M79.672 ; Pain in right foot M79.671 and Rheumatoid arthritis involving multiple sites, unspecified rheumatoid factor presence M06.9 [place] [address] [address]- 3846 Nov, Bilateral low back pain, with sciatica presence unspecified M54.5 [place] [address] [address]- 1998 Oct, Chronic obstructive pulmonary disease, unspecified COPD type J44.[address] [address]- 4100 September, [address] [address]- 3[address] September, Bilateral low back pain, with sciatica presence unspecified M54.5 [facility] [address] [address] September, Body aches R52 and Upper respiratory infection, acute J06.[address] [address] September, [facility] [address] [address] September, Left wrist injury, initial encounter S69.92XA and Contusion of wrist, left S60.212A [address] [address]- 8256 Aug, Depressive disorder, not elsewhere classified F32.9 [facility] [address] [address] Jul, Seasonal allergic rhinitis, unspecified allergic rhinitis trigger J30.2 ; Rheumatoid arthritis flare M06.9 and Essential hypertension I10 [address] [address]- 6992 Jul, [place] [address] [place] [id number] [place] [address] 36283- 2075 Jul, Essential hypertension I10 [place] [address] [address]79- 7517 Jul, Essential hypertension I10 ; Other chronic pain G89.29 ; Rheumatoid arthritis involving multiple sites, unspecified rheumatoid factor presence M06.9 and Insomnia due to medical condition G47.01 [place] [address] 94[address]- 7368 Jul, [place] [address] 15559- 0492 Jul, [place] [address] [place] [id number] [place] [address] 16138- 4164 Jun, [place] [address] [address] [id number] [place] [address] 93178- 9047 Jun, 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 ; Essential hypertension I10 ; Chronic obstructive pulmonary disease, unspecified COPD type J44.9 ; Panic attacks F41.0 ; Hot flashes R23.2 ; Rheumatoid arthritis involving multiple sites, unspecified rheumatoid factor presence M06.9 ; Pain in thoracic spine M54.6 ; Other chronic pain G89.29 and Arthralgia, unspecified joint M25.50 [facility] [place] [id number] [place] [address] May, Rheumatoid arthritis flare M06.9 [facility] [place] [id number] [place] [address] May, Left lower quadrant pain R10.32 ; Abdominal pain in female R10.9 ; Constipation, unspecified constipation type K59.00 and Gastroesophageal reflux disease without esophagitis K21.9 [facility] [place] [id number] [place] [address] Mar, Herpes genitalis in women A60.09 ; Bilateral impacted cerumen H61.23 and Injury of right ring finger, initial encounter S69.91XA [facility] [address] [address] Mar, [facility] [address] [place] [address] [id number] [place] [address]12- 8419 Nov, Essential hypertension I10 ; Chronic hepatitis C B18.2 ; Arthralgia, unspecified joint M25.50 ; Chronic obstructive pulmonary disease, unspecified COPD type J44.9 ; Methamphetamine abuse F15.10 ; Simple chronic bronchitis J41.0 ; Hemorrhoids, unspecified hemorrhoid type K64.9 and Anxiety F41.9 [facility] [id number] [place] [address] 0[address]60 [address]85 Nov, [facility] [address] [place] [id number] [place] [address] 99858- 7151 Feb, Elevated glucose R73.09 [place] [address] [place] [address] [id number] [place] [address] 93462- 5332 Feb, Elevated glucose R73.09 [facility] [address] [place] [address] [id number] [place] [address] 93690- 0218 Oct, [facility] [address] [place] [address] [id number] [place] [address] 09843- 1748 Oct, [facility] [address] [place] [address] [id number] [place] [address] 28782- 8924 Oct, Essential hypertension, benign 401.1 ; Chronic hepatitis C without mention of hepatic coma 070.54 ; Anxiety state, unspecified 300.00 ; Genital herpes 054.10 ; Methamphetamine abuse 305.70 and Excessive cerumen in both ear canals 380.4 [facility] [address] [place] [id number] [place] [address] 05238- 5442 Oct, [facility] [address] [place] [id number] [place] [address] 83216- 4863 Aug, [facility] [address] [place] [address] [id number] [place] [address] 08558- 6719 Aug, [facility] [address] [place] [address] Jul, [facility] [place] [facility] [address] [id number] [place] [address]- 0750 Jul, [facility] [place] [facility] [address] [id number] [place] [address]- 9036 Jun, [facility] [place] [facility] [address] [id number] [place] [address]- 3976 Jun, [facility] [place] [facility] [address] [id number] [place] [address]- 2873 Jun, [facility] [place] [facility] [address] [id number] [place] [address]- 3297 Jun, [facility] [place] [facility] [address] [id number] [place] [address]- 4228 May, [facility] [place] [facility] [address] [id number] [place] [address]- 4636 May, [facility] [place] [facility] [address] [id number] [place] [address]- 5360 May, [facility] [place] [facility] [address] [id number] [place] [address]- 8005 May, [facility] [place] [facility] [address] [id number] [place] [address]- 8441 May, [facility] [place] [facility] [address] [id number] [place] [address]- 8947 May, [facility] [place] [facility] [address] [id number] [place] [address]- 8160 May, [facility] [place] [facility] [address] [id number] [place] [address]- 4256 Apr, [facility] [place] [facility] [address] [id number] [place] [address]- 7616 Apr, [facility] [place] [facility] [address] [id number] [place] [address]- 4647 Apr, [facility] [place] [facility] [address] [id number] [place] [address]- 1853 Dec, [facility] [place] [facility] [address] [id number] [place] [address]- 9404 Dec, [facility] [place] [facility] [address] [id number] [place] [address]- 8692 Nov, [facility] [place] [facility] [address] [id number] [place] [address]- 5570 Nov, [facility] [place] [facility] [address] [id number] [place] [address]- 4669 Nov, [facility] [place] [facility] [address] [id number] [place] [address]- 4043 Nov, [facility] [place] [facility] [address] [id number] [place] [address]- 4655 Nov, [facility] [place] [facility] [address] [id number] [place] [address]- 4737 Nov, [facility] [place] [facility] [address] [id number] [place] [address]- 3171 Nov, [facility] [place] [facility] [address] [id number] [place] [address]- 5177 Nov, [facility] [place] [facility] [address] [id number] [place] [address]- 8765 Nov, [facility] [place] [facility] [address] [id number] [place] [address]- 8561 Nov, [facility] [place] [facility] [address] [id number] [place] [address]- 5647 Nov, [facility] [place] [facility] [address] [id number] [place] [address]- 4437 Nov, [facility] [place] [facility] [address] [id number] [place] [address]- 2403 Oct, [facility] [place] [facility] [address] [id number] [place] [address]- 3846 Oct, [facility] [place] [facility] [address] [id number] [place] [address]- 9304 September, [facility] [place] [facility] [address] [id number] [place] [address]- 8815 September, [facility] [place] [facility] [address] [id number] [place] [address] Aug, [facility] [place] [facility] [address] [id number] [place] [address]- 4642 Aug, [facility] [place] [facility] [address] [id number] [place] [address]- 6302 Aug, [facility] [place] [facility] [address] [id number] [place] [address]- 9039 Aug, [facility] [place] [facility] [address] [id number] [place] [address]- 2877 Aug, [facility] [place] [facility] [address] [id number] [place] [address]- 6901 Aug, [facility] [place] [facility] [address] [id number] [place] [address]- 9852 Aug, [facility] [place] [facility] [address] [id number] [place] [address]- 5935 Aug, [facility] [place] [facility] [address] [id number] [place] [address]- 4441 Aug, [facility] [place] [facility] [address] [id number] [place] [address]- 0808 Aug, [facility] [place] [facility] [address] [id number] [place] [address]- 6889 Aug, [facility] [place] [facility] [address] [id number] [place] [address]- 2347 Jul, [facility] [place] [facility] [address] [id number] [place] 9393 Jul, [facility] [place] [facility] [address] [id number] [place] [address]- 5912 Jul, [facility] [place] [facility] [address] [id number] [place] [address]- 2951 Jul, [facility] [place] [facility] [address] [id number] [place] [address]- 0077 Jul, [facility] [place] [facility] [address] [id number] [place] [address]- 5814 Jul, [facility] [place] [facility] [address] [id number] [place] [address]- 5423 Jul, [facility] [place] [facility] [address] [id number] [place] [address]- 9084 24 Jun, 2013 [facility] [place] [facility] [address] [id number] [place] [address]- 1103 Jun, [facility] [place] [facility] [address] [id number] [place] [address]- 9381 Jun, [facility] [place] [facility] [address] [id number] [place] [address]- 4980 Jun, [facility] [place] [facility] [address] [id number] [place] [address]- 1439 Jun, [facility] [place] [facility] [address] [id number] [place] [address]- 1222 Jun, [facility] [place] [facility] [address] [id number] [place] [address]- 4907 Jun, [facility] [place] [facility] [address] [id number] [place] [address]- 2239 Jan, [facility] [place] [facility] [address] [id number] [place] [address]- 2422 Nov, [facility] [place] [facility] [address] [id number] [place] [address]- 2376 Nov, [facility] [place] [facility] [address] [id number] [place] [address]- 2787 Aug, [facility] [address] [id number] [place] [address]- 9116 Jun, [facility] [address] [id number] [place] [address]- 6316 Jun, [facility] [address] [id number] [place] [address]- 2466 Jun, [facility] [address] [id number] [place] [address]- 8653 May, [facility] [address] [id number] [place] [address]- 3572 May, [facility] [address] [id number] [place] [address]- 4476 May, [facility] [address] [id number] [place] [address]- 2227 May, [facility] [address] [id number] [place] [address]- 2180 Apr, [facility] [address] [id number] [place] [address]- 1355 Apr, [facility] [address] [id number] [place] [address]- 4006 Apr, [facility] [address] [id number] [place] [address] 2546 Apr, [facility] [address] [id number] [place] [address]- 9705 Mar, [facility] [address] [id number] [place] [address]- 8032 13 Feb, 2011 [facility] [place] [facility] [address] [id number] [place] [address]- 2546 16 Dec, 2010 [facility] [address] [id number] [place] [address]- 3653 Nov, [facility] [address] [facility] [id number], [place] [address]- 1012 Jul, [facility] [address] [facility] [id number] [address]33 Apr, [facility] [address] [facility] [id number] [address] [address] Apr, [facility] [address] [facility] [id number], [place] [address]- 1165 Apr, [facility] [address] [facility] [id number], [place] [address]- 0188 Mar, [facility] [address] [facility] [id number], [place] [address]- 0739 Mar, [facility] [address] [place] [id number] [address]- 2298 Mar, [facility] [address] [place] [id number] [address]- 7610 Feb, [facility] [address] [id number] [address]- 4578 Feb, [facility] [address], [place] [address]- 2571 Feb, [facility] [address], [place] [address]- 7613 Feb, [facility] [address], [place] [address]- 7578 Dec, [facility] [id number] [address]- 5349 Oct, [facility] [address], [place] [address]- 6369 Oct, IMMUNIZATIONS No Known Immunizations SOCIAL HISTORY Never Assessed REASON FOR VISIT medication refill PLAN OF CARE VITAL SIGNS MEDICATIONS Medication Instructions Dosage Frequency Start Date End Date Duration Status Proventil HFA 108 (90 Base) MCG/ACT Inhalation every 4 hrs 2 puffs as needed Nov, Active RESULTS No Results PROCEDURES No [...]
--- OUTSIDE RECORDS SUMMARY | 2018-07-14 13:10 | XMS REPORT ---
Author Author JALIL FRYE [facility] Address [address] [place] [address] Care Team Providers Care Corporate Law Assistant Name Role Phone JALIL FRYE Unavailable PROBLEMS Type Condition ICD9-CM Code ECQ48-ZZ Code Onset Dates Condition Status SNOMED Code Problem Gastroesophageal reflux disease without esophagitis K21.9 Active 808863095 Problem Depressive disorder, not elsewhere classified F32.9 Active 01996002 Problem Seasonal allergic rhinitis, unspecified allergic rhinitis trigger J30.2 Active 315786470 Problem Psoriasis L40.9 Active 6769605 Problem KARY (generalized anxiety disorder) F41.1 Active 14627000 Problem Other chronic pain G89.29 Active 88944135 Problem Porokeratosis Q82.8 Active 244481650 Problem MDD (major depressive disorder), recurrent episode, moderate F33.1 Active 568829705 Problem Situational depression F43.21 Active 28983449 Problem Essential hypertension I10 Active 08667999 Problem Methamphetamine abuse F15.10 Active 148818038 Problem 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 Active 62468965 Problem Chronic obstructive pulmonary disease, unspecified COPD type J44.9 Active 30213532 Problem 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 Active 448138902319656 Problem Epilepsy, unspecified, not intractable, without status epilepticus G40.909 Active 081077680 Problem Chronic hepatitis C B18.2 Active 552653751 Problem Rheumatoid arthritis involving multiple sites, unspecified rheumatoid factor presence M06.9 Active 110055303 Problem Anxiety F41.9 Active 69582885 Problem Panic attacks F41.0 Active 216222611 ALLERGIES Substance Reaction Event Type Date Status Macrobid Unknown Drug Allergy Apr, Active ENCOUNTERS Encounter Location Date Diagnosis [facility] [address] [facility] [id number] [address] Apr, [facility] [address] [place] [id number] [place] [address] 41780- 0842 Apr, Chronic obstructive pulmonary disease, unspecified COPD type J44.9 [place] [address] [address] [id number] [place] [address] 56930- 5352 Apr, [place] [address] [address]- [address] Apr, Essential hypertension I10 [place] [address] [address]- 98[address] Apr, Essential hypertension I10 ; Psoriasis L40.9 and Epistaxis R04.[address] [address]- [address] Apr, [place] [address] [address]- [address] Mar, MDD (major depressive disorder), recurrent episode, moderate F33.[address] 19088- 8049 Mar, MDD (major depressive disorder), recurrent episode, moderate F33.1 and KARY (generalized anxiety disorder) F41.[address] [address]- 5050 18 Feb, 2018 Acute non-recurrent pansinusitis J01.40 and Encounter for immunization Z23 [address] [address]- [address] Feb, Situational depression F43.21 and Screening for breast cancer Z12.31 [place] [id number] [place] [address] 30933- 9891 Feb, Chronic obstructive pulmonary disease, unspecified COPD type J44.9 [place] [address] [address]- 6039 Oct, Essential hypertension I10 ; Rheumatoid arthritis involving multiple sites, unspecified rheumatoid factor presence M06.9 and Chronic hepatitis C B18.[address] 30577- 8398 15 Oct, 2017 [place] [id number] [place] [address] 57432- 1697 15 Oct, 2017 Fissure in skin of foot R23.4 [place] [address] [address] [id number] [place] [address] 46898- 4843 07 Oct, 2017 Essential hypertension I10 [place] [address] [address] [id number] [place] [address] 88729- 8668 04 Oct, 2017 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 [place] [address] [address] [id number] [place] [address] 08376- 5605 September, [place] [address] [address] [id number] [place] [address] 77359- 2189 September, Pain in right ankle and joints of right foot M25.571 and Other chronic pain G89.29 [place] [id number] [place] [address] 64765- 9205 Aug, Essential hypertension I10 ; Rheumatoid arthritis involving multiple sites, unspecified rheumatoid factor presence M06.9 ; Gastroesophageal reflux disease without esophagitis K21.9 ; Anxiety F41.9 ; 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 and Dermatitis L30.9 [place] [id number] [place] [address] 78182- 6953 Aug, Onychomycosis B35.1 ; Peroneal tendinitis, unspecified laterality M76.70 and Porokeratosis Q82.8 [place] [address] [address] [id number] [place] [address] 10339- 9753 Jul, Porokeratosis Q82.8 ; Hyperhidrosis L74.519 and Callus of foot L84 [place] [address] [address] [id number] [place] [address] 02012- 5729 Apr, [place] [address] [address] [id number] [place] [address] 75140- 3764 Apr, [place] [address] 95158- 2495 Mar, Well woman exam (no gynecological exam) Z00.00 ; Plantar wart B07.0 ; Pain of left foot M79.672 ; Pain in right foot M79.671 and Rheumatoid arthritis involving multiple sites, unspecified rheumatoid factor presence M06.[address] 26566- 6601 Nov, Bilateral low back pain, with sciatica presence unspecified M54.[address] 23447- 3178 Oct, Chronic obstructive pulmonary disease, unspecified COPD type J44.9 [place] [address] 349[address]- 9519 September, [address] 93819- 7385 September, Bilateral low back pain, with sciatica presence unspecified M54.5 [facility] [address] [place] [address] -[address] September, Body aches R52 and Upper respiratory infection, acute J06.[address] [address] September, [facility] [address] [address] September, Left wrist injury, initial encounter S69.92XA and Contusion of wrist, left S60.212A [address] 61737- 1355 Aug, Depressive disorder, not elsewhere classified F32.9 [facility] [address] [place] [address] 93017 -5362 Jul, Seasonal allergic rhinitis, unspecified allergic rhinitis trigger J30.2 ; Rheumatoid arthritis flare M06.9 and Essential hypertension I10 [address] [address]31- 7535 08 Jul, 2016 [place] [address] [address] [id number] [place] [address] 55057- 1286 Jul, Essential hypertension I10 [place] [address] [address] [id number] [place] [address] 47163- 2302 03 Jul, 2016 Essential hypertension I10 ; Other chronic pain G89.29 ; Rheumatoid arthritis involving multiple sites, unspecified rheumatoid factor presence M06.9 and Insomnia due to medical condition G47.01 [place] [address] [address] [id number] [place] [address] 00807- 6932 Jul, [place] [address] [address] [id number] [place] [address] 26863- 7497 Jul, [place] [address] [address] [id number] [place] [address] 93181- 9639 Jun, [place] [address] [address] [id number] [place] [address] 80522- 3033 Jun, 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 ; Essential hypertension I10 ; Chronic obstructive pulmonary disease, unspecified COPD type J44.9 ; Panic attacks F41.0 ; Hot flashes R23.2 ; Rheumatoid arthritis involving multiple sites, unspecified rheumatoid factor presence M06.9 ; Pain in thoracic spine M54.6 ; Other chronic pain G89.29 and Arthralgia, unspecified joint M25.50 [facility] [id number] [place] [address] 93833 -2781 May, Rheumatoid arthritis flare M06.9 [facility] [id number] [place] [address] 76397 -5060 May, Left lower quadrant pain R10.32 ; Abdominal pain in female R10.9 ; Constipation, unspecified constipation type K59.00 and Gastroesophageal reflux disease without esophagitis K21.9 [facility] [id number] [place] [address] 88928 -2314 Mar, Herpes genitalis in women A60.09 ; Bilateral impacted cerumen H61.23 and Injury of right ring finger, initial encounter S69.91XA [facility] [id number] [place] [address] 44801- 2253 Mar, [facility] [address] 09[address]- 0815 Nov, Essential hypertension I10 ; Chronic hepatitis C B18.2 ; Arthralgia, unspecified joint M25.50 ; Chronic obstructive pulmonary disease, unspecified COPD type J44.9 ; Methamphetamine abuse F15.10 ; Simple chronic bronchitis J41.0 ; Hemorrhoids, unspecified hemorrhoid type K64.9 and Anxiety F41.9 [facility] [address] [address] Nov, [facility] [id number] [place] [address] 93174- 8039 Feb, Elevated glucose R73.09 [place] [address] 41461- 5152 Feb, Elevated glucose R73.09 [place] [address] [address] [id number] [place] [address] 37233- 0237 Oct, [place] [address] [address] [id number] [place] [address] 39004- 6598 Oct, [facility] [id number] [place] [address] 97461- 3348 Oct, Essential hypertension, benign 401.1 ; Chronic hepatitis C without mention of hepatic coma 070.54 ; Anxiety state, unspecified 300.00 ; Genital herpes 054.10 ; Methamphetamine abuse 305.70 and Excessive cerumen in both ear canals 380.4 [facility] [id number] [place] [address] 68544- 2831 Oct, [facility] [id number] [place] [address] 69112- 3032 Aug, [facility] [address] 35928- 3752 Aug, [facility] [place] [facility] [address] [id number] [place] [address]- 3908 Jul, [facility] [place] [facility] [address] [id number] [place] [address]- 4314 Jul, [facility] [place] [facility] [address] [id number] [place] [address]- 5254 Jun, [facility] [place] [facility] [address] [id number] [place] [address]- 2560 Jun, [facility] [place] [facility] [address] [id number] [place] [address]- 5670 Jun, [facility] [place] [facility] [address] [id number] [place] [address]- 3969 Jun, [facility] [place] [facility] [address] [id number] [place] [address]- 9804 May, [facility] [place] [facility] [address] [id number] [place] [address]- 4128 May, [facility] [place] [facility] [address] [id number] [place] [address]- 4216 May, [facility] [place] [facility] [address] [id number] [place] [address]- 3071 May, [facility] [place] [facility] [address] [id number] [place] [address]- 4535 May, [facility] [place] [facility] [address] [id number] [place] [address]- 3329 May, [facility] [place] [facility] [address] [id number] [place] [address]- 9220 May, [facility] [place] [facility] [address] [facility] [id number] [place] [address]- 4055 Apr, [facility] [place] [facility] [address] [id number] [place] [address]- 5894 Apr, [facility] [place] [facility] [address] [id number] [place] [address]- 2209 Apr, [facility] [place] [facility] [address] [id number] [place] [address]- 9869 Dec, [facility] [place] [facility] [address] [id number] [place] [address]- 9143 Dec, [facility] [place] [facility] [address] [id number] [place] [address]- 4805 Nov, [facility] [place] [facility] [address] [id number] [place] [address]- 1062 Nov, [facility] [place] [facility] [address] [id number] [place] [address]- 8509 Nov, [facility] [place] [facility] [address] [id number] [place] [address]- 1117 Nov, [facility] [place] [facility] [address] [id number] [place] [address]- 7706 Nov, [facility] [place] [facility] [address] [id number] [place] [address]- 1613 Nov, [facility] [place] [facility] [address] [id number] [place] [address]- 4613 Nov, [facility] [place] [facility] [address] [id number] [place] [address]- 9675 Nov, [facility] [place] [facility] [address] [id number] [place] [address]- 6286 Nov, [facility] [place] [facility] [address] [id number] [place] [address]- 5432 Nov, [facility] [place] [facility] [address] [id number] [place] [address]- 5056 Nov, [facility] [place] [facility] [address] [id number] [place] [address]- 8312 Nov, [facility] [place] [facility] [address] [id number] [place] [address]- 2620 Oct, [facility] [place] [facility] [address] [id number] [place] [address]- 0515 Oct, [facility] [place] [facility] [address] [id number] [place] [address]- 1418 September, [facility] [place] [facility] [address] [id number] [place] [address]- 9994 September, [facility] [place] [facility] [address] [id number] [place] [address]- 7232 Aug, [facility] [place] [facility] [address] [id number] [place] [address]- 0687 Aug, [facility] [place] [facility] [address] [id number] [place] [address]- 8879 Aug, [facility] [place] [facility] [address] [id number] [place] [address]- 2460 Aug, [facility] [place] [facility] [address] [id number] [place] [address]- 0232 Aug, [facility] [place] [facility] [address] [id number] [place] [address]- 0263 Aug, [facility] [place] [facility] [address] [id number] [place] [address]- 6611 Aug, [facility] [place] [facility] [address] [id number] [place] [address]- 5749 Aug, [facility] [place] [facility] [address] [id number] [place] [address]- 6461 Aug, [facility] [place] [facility] [address] [id number] [place] [address]- 1852 Aug, [facility] [place] [facility] [address] [id number] [place] [address]- 3035 Aug, [facility] [place] [facility] [address] [id number] [place] [address]- 6633 Jul, [facility] [place] [facility] [address] [id number] [place] [address]- 7597 13 Jul, 2013 [facility] [place] [facility] [address] [id number] [place] [address]- 5010 12 Jul, 2013 [facility] [place] [facility] [address] [id number] [place] [address]- 0788 Jul, [facility] [place] [facility] [address] [facility] [id number] [place] [address]- 7654 Jul, [facility] [place] [facility] [address] [id number] [place] [address]- 5984 Jul, [facility] [place] [facility] [address] [id number] [place] [address]- 3616 Jul, [facility] [place] [facility] [address] [id number] [place] [address]- 5818 24 Jun, 2013 [facility] [place] [facility] [address] [facility] [id number] [place] [address]- 4721 Jun, [facility] [place] [facility] [address] [facility] [id number] [place] [address]- 4957 Jun, [facility] [place] [facility] [address] [facility] [id number] [place] [address]- 4606 Jun, [facility] [place] [facility] [address] [facility] [id number] [place] [address]- 6787 Jun, [facility] [place] [facility] [address] [facility] [id number] [place] [address]- 2678 14 Jun, 2013 [facility] [place] [facility] [address] [facility] [id number] [place] [address]- 7015 14 Jun, 2013 [facility] [place] [facility] [address] [facility] [id number] [place] [address]- 4309 Jan, [facility] [place] [facility] [address] [facility] [id number] [place] [address]- 0117 Nov, [facility] [place] [facility] [address] [facility] [id number] [place] [address]- 0284 Nov, [facility] [place] [facility] [address] [id number] [place] [address]- 0992 Aug, [facility] [place] [facility] [address] [id number] [place] [address]- 5666 Jun, [facility] [place] [facility] [address] [id number] [place] [address]- 4556 Jun, [facility] [place] [facility] [address] [id number] [place] [address] 254 Jun, [facility] [place] [facility] [address] [id number] [place] [address]- 3451 May, [facility] [place] [facility] [address] [id number] [place] [address]- 3836 May, [facility] [place] [facility] [address] [id number] [place] [address]- 3956 May, [facility] [place] [facility] [address] [id number] [place] [address]- 2161 May, [facility] [place] [facility] [address] [id number] [place] [address]- 8139 Apr, [facility] [place] [facility] [address] [id number] [place] [address]- 0685 Apr, [facility] [place] [facility] [address] [id number] [place] [address]- 0431 Apr, [facility] [place] [facility] [address] [id number] [place] [address]- 5393 Apr, [facility] [place] [facility] [address] [id number] [place] [address]- 4035 Mar, [facility] [place] [facility] [address] [id number] [place] [address]- 9496 13 Feb, 2011 [facility] [place] [facility] [address] [id number] [place] [address] 2548 16 Dec, 2010 [facility] [place] [facility] [address] [id number], [place] [address]- 1614 Nov, [facility] [address] [facility] [id number], [place] [address]- 1603 Jul, [facility] [address] [facility] [id number], [place] [address]- 2047 Apr, [facility] [address] [facility] [id number], [place] [address]- 3135 Apr, [facility] [address] [facility] [id number], [place] [address]- 3928 Apr, [facility] [address] [facility] [id number] [place] [address] 21698- 7300 Mar, [facility] [address] [facility] [id number], [place] [address]- 6960 Mar, [facility] [id number] [place] [address] 14451- 3817 Mar, [facility] [address] [id number] [address]- 1549 Feb, [facility] [address] [address]- 6221 Feb, [facility] [address] [address]- 2953 Feb, [facility] [address] [address]- 1637 Feb, [facility] [address] [facility] [id number], [place] [address]- 6805 Dec, [facility] [address] [id number] [address]- 3568 Oct, [facility] [address] [id number] [address]- 3253 Oct, IMMUNIZATIONS No Known Immunizations SOCIAL HISTORY Never Assessed REASON FOR VISIT Blood pressure - been high several times the last couple weeks Ronnie Stout , wants to see if we can prescribe a refill on her cream for exema - betamethason dipropionate 0.05% cream Ronnie STOUT , still having bloody noses- still taking sinus medication but now its not working or helping Ronnie stout , having sinus headaches Ronnie stout PLAN OF CARE Activity Details Follow Up Will call after lab Reason: VITAL SIGNS Height 60 in 2018-04-16 Weight 184.9 lbs 2018-04-16 Temperature 98.7 degrees Fahrenheit 2018-04-16 Heart Rate 104 bpm 2018-04-16 Respiratory Rate 20 2018-04-16 BMI 36.11 kg/m2 2018-04-16 Blood pressure systolic 158 mmHg 2018-04-16 Blood pressure diastolic 90 mmHg 2018-04-16 MEDICATIONS Medication Instructions Dosage Frequency Start Date End Date Duration Status Lisinopril 40 mg Orally Once a day 1 tablet 24h Nov, Active SudoGest 60 mg Orally every 6 hrs 1 tablet as needed 6h Feb, 7 days Not-Taking Betamethasone Dipropionate 0.05 % Externally 2 times a day 1 application to affected area 12h Apr, 30 days Active Hydrochlorothiazide 25 MG Orally Once a day 1 tablet 24h Jul, 30 day(s) Active Cymbalta 20 mg Orally Once a day for two weeks, then 1 capsule twice a day 1 capsule Mar, 30 day(s) Active Atenolol 50 mg Orally Once a day 1 tablet 24h Nov, Active Acyclovir 400 mg Orally Twice a day 1 tablet 12h Oct, 30 days Active Omeprazole 40 MG Orally Once a day 1 capsule 24h May, 30 day(s ) Active Proventil HFA 108 (90 Base) MCG/ACT Inhalation every 4 hrs 2 puffs as needed 4h Nov, Active Plaquenil 200 MG Orally Once a day 1 tablet with food or milk 24h Active RESULTS No Results PROCEDURES No Known [...]
--- OUTSIDE RECORDS SUMMARY | 2018-07-14 13:12 | XMS REPORT ---
Author Author JALIL FRYE Organization [facility] [place] Address [address] [place] [address] Care Team Providers Care Potato Inspector Name Role Phone JALIL FRYE Unavailable PROBLEMS Type Condition ICD9-CM Code BRA55-OB Code Onset Dates Condition Status SNOMED Code Problem Gastroesophageal reflux disease without esophagitis K21.9 Active 564895423 Problem Depressive disorder, not elsewhere classified F32.9 Active 41299383 Problem Seasonal allergic rhinitis, unspecified allergic rhinitis trigger J30.2 Active 753247075 Problem Psoriasis L40.9 Active 2888993 Problem KARY (generalized anxiety disorder) F41.1 Active 49702630 Problem Other chronic pain G89.29 Active 97191911 Problem Porokeratosis Q82.8 Active 541917209 Problem MDD (major depressive disorder), recurrent episode, moderate F33.1 Active 685282499 Problem Situational depression F43.21 Active 81194063 Problem Essential hypertension I10 Active 38234113 Problem Methamphetamine abuse F15.10 Active 062863844 Problem 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 Active 24445898 Problem Chronic obstructive pulmonary disease, unspecified COPD type J44.9 Active 25933780 Problem 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 Active [id number] Problem Epilepsy, unspecified, not intractable, without status epilepticus G40.909 Active 113538514 Problem Chronic hepatitis C B18.2 Active 941026462 Problem Rheumatoid arthritis involving multiple sites, unspecified rheumatoid factor presence M06.9 Active 901338692 Problem Anxiety F41.9 Active 49248742 Problem Panic attacks F41.0 Active 120359893 ALLERGIES No Information ENCOUNTERS Encounter Location Date Diagnosis [facility] [place] [address] [facility] [id number] [address] Apr, [facility] [place] [address] [facility] [id number] [address] Apr, Chronic obstructive pulmonary disease, unspecified COPD type J44.9 [place] [address] [place] [id number] [place] [address]1716- 2488 Apr, [place] [address] [address] Apr, Essential hypertension I10 [place] [address] [address]- 5[address] Apr, Essential hypertension I10 ; Psoriasis L40.9 and Epistaxis R04.0 [place] [address] [address]- 3415 Apr, [place] [address] [address]78- [address] Mar, MDD (major depressive disorder), recurrent episode, moderate F33.[address] [address]- [address] Mar, MDD (major depressive disorder), recurrent episode, moderate F33.1 and KARY (generalized anxiety disorder) F41.1 [place] [address] [place] [id number] [place] [address] 30228- 5888 18 Feb, 2018 Acute non-recurrent pansinusitis J01.40 and Encounter for immunization Z23 [address] [address]- [address] Feb, Situational depression F43.21 and Screening for breast cancer Z12.31 [place] [address] [place] [id number] [place] [address] 65312- 6556 Feb, Chronic obstructive pulmonary disease, unspecified COPD type J44.9 [place] [address] [address]- 5213 Oct, Essential hypertension I10 ; Rheumatoid arthritis involving multiple sites, unspecified rheumatoid factor presence M06.9 and Chronic hepatitis C B18.2 [place] [address] [place] [id number] [place] [address] 56935- 6942 Oct, [place] [address] [place] [id number] [place] [address] 06361- 7500 15 Oct, 2017 Fissure in skin of foot R23.4 [place] [address] 69[address]- 3735 07 Oct, 2017 Essential hypertension I10 [address] [address]- 7584 Oct, 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 [place] [address] [address]- 1661 September, [address] [address]- [address] September, Pain in right ankle and joints of right foot M25.571 and Other chronic pain G89.[address] [address]- [address] Aug, Essential hypertension I10 ; Rheumatoid arthritis involving multiple sites, unspecified rheumatoid factor presence M06.9 ; Gastroesophageal reflux disease without esophagitis K21.9 ; Anxiety F41.9 ; 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 and Dermatitis L30.[address] [address]- 1298 Aug, Onychomycosis B35.1 ; Peroneal tendinitis, unspecified laterality M76.70 and Porokeratosis Q82.8 [place] [address] [place] [id number] [place] [address] 29955- 1177 Jul, Porokeratosis Q82.8 ; Hyperhidrosis L74.519 and Callus of foot L84 [place] [address] [address]- 4442 Apr, [address] [address]- 7375 Apr, [place] [address] 28729- 8951 Mar, Well woman exam (no gynecological exam) Z00.00 ; Plantar wart B07.0 ; Pain of left foot M79.672 ; Pain in right foot M79.671 and Rheumatoid arthritis involving multiple sites, unspecified rheumatoid factor presence M06.9 [place] [address] [address]- 1790 Nov, Bilateral low back pain, with sciatica presence unspecified M54.5 [place] [address] [address]- [address] Oct, Chronic obstructive pulmonary disease, unspecified COPD type J44.[address] 18266- 2045 September, [address] [address]- 8840 September, Bilateral low back pain, with sciatica presence unspecified M54.5 [facility] [address] [address] September, Body aches R52 and Upper respiratory infection, acute J06.[address] [address] September, [facility] [address] [address] September, Left wrist injury, initial encounter S69.92XA and Contusion of wrist, left S60.212A [address] [address]- 7990 Aug, Depressive disorder, not elsewhere classified F32.9 [facility] IN [address] [address] Jul, Seasonal allergic rhinitis, unspecified allergic rhinitis trigger J30.2 ; Rheumatoid arthritis flare M06.9 and Essential hypertension I10 [address] [address]68- 3623 Jul, [place] [address] [place] [id number] [place] [address] 16094- 6456 Jul, Essential hypertension I10 [place] [address] 60[address]- 5309 Jul, Essential hypertension I10 ; Other chronic pain G89.29 ; Rheumatoid arthritis involving multiple sites, unspecified rheumatoid factor presence M06.9 and Insomnia due to medical condition G47.01 [place] [address] 6[address]- 4388 Jul, [place] [address] [address]- 5429 Jul, [place] [address] [place] [id number] [place] [address] 71286- 6021 Jun, [place] [address] [place] [id number] [place] [address] 07222- 3410 Jun, 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 ; Essential hypertension I10 ; Chronic obstructive pulmonary disease, unspecified COPD type J44.9 ; Panic attacks F41.0 ; Hot flashes R23.2 ; Rheumatoid arthritis involving multiple sites, unspecified rheumatoid factor presence M06.9 ; Pain in thoracic spine M54.6 ; Other chronic pain G89.29 and Arthralgia, unspecified joint M25.50 [facility] [place] [id number] [place] [address] May, Rheumatoid arthritis flare M06.9 [facility] [place] [id number] [place] [address] May, Left lower quadrant pain R10.32 ; Abdominal pain in female R10.9 ; Constipation, unspecified constipation type K59.00 and Gastroesophageal reflux disease without esophagitis K21.9 [facility] [place] [id number] [place] [address]12[address] Mar, Herpes genitalis in women A60.09 ; Bilateral impacted cerumen H61.23 and Injury of right ring finger, initial encounter S69.91XA [facility] [place] [address] [address] Mar, [facility] [place] [address] [place] [id number] [place] [address] 93237- 0937 Nov, Essential hypertension I10 ; Chronic hepatitis C B18.2 ; Arthralgia, unspecified joint M25.50 ; Chronic obstructive pulmonary disease, unspecified COPD type J44.9 ; Methamphetamine abuse F15.10 ; Simple chronic bronchitis J41.0 ; Hemorrhoids, unspecified hemorrhoid type K64.9 and Anxiety F41.9 [facility] IN [facility] [address] [place] [address]83 [address]1013 Nov, [facility] [place] [address] [place] [id number] [place] [address] 18230- 1891 Feb, Elevated glucose R73.09 [place] [address] [place] [id number] [place] [address] 32769- 0657 Feb, Elevated glucose R73.09 [facility] [place] [address] [place] [id number] [place] [address] 53078- 0390 Oct, [facility] [place] [address] [place] [id number] [place] [address] 21733- 4034 Oct, [facility] [place] [address] [place] [id number] [place] [address] 38045- 3350 Oct, Essential hypertension, benign 401.1 ; Chronic hepatitis C without mention of hepatic coma 070.54 ; Anxiety state, unspecified 300.00 ; Genital herpes 054.10 ; Methamphetamine abuse 305.70 and Excessive cerumen in both ear canals 380.4 [facility] [place] [address] [place] [id number] [place] [address] 56572- 3399 Oct, [facility] [place] [address] [place] [id number] [place] [address] 22703- 2829 Aug, [facility] [place] [address] [place] [id number] [place] [address] 68864- 0469 Aug, [facility] [place] [address] [place] [address]- 7017 Jul, [facility] [place] [facility] [address] [id number] [place] [address]- 7750 Jul, [facility] [place] [facility] [address] [id number] [place] [address]- 5636 Jun, [facility] [place] [facility] [address] [id number] [place] [address]- 9166 Jun, [facility] [place] [facility] [address] [id number] [place] [address]- 4051 Jun, [facility] [place] [facility] [address] [id number] [place] [address]- 5257 Jun, [facility] [place] [facility] [address] [id number] [place] [address]- 7548 May, [facility] [place] [facility] [address] [id number] [place] [address]- 5954 May, [facility] [place] [facility] [address] [id number] [place] [address]- 2012 May, [facility] [place] [facility] [address] [id number] [place] [address]- 1495 May, [facility] [place] [facility] [address] [id number] [place] [address]- 6089 May, [facility] [place] [facility] [address] [id number] [place] [address]- 0800 May, [facility] [place] [facility] [address] [id number] [place] [address]- 5193 May, [facility] [place] [facility] [address] [id number] [place] [address]- 6926 Apr, [facility] [place] [facility] [address] [id number] [place] [address]- 4466 Apr, [facility] [place] [facility] [address] [id number] [place] [address]- 8918 Apr, [facility] [place] [facility] [address] [id number] [place] [address]- 4946 Dec, [facility] [place] [facility] [address] [id number] [place] [address]- 1887 Dec, [facility] [place] [facility] [address] [id number] [place] [address]- 3099 Nov, [facility] [place] [facility] [address] [id number] [place] [address]- 6838 Nov, [facility] [place] [facility] [address] [id number] [place] [address]- 5719 Nov, [facility] [place] [facility] [address] [id number] [place] [address]- 4820 Nov, [facility] [place] [facility] [address] [id number] [place] [address]- 5195 Nov, [facility] [place] [facility] [address] [id number] [place] [address]- 8200 Nov, [facility] [place] [facility] [address] [id number] [place] [address]- 4952 Nov, [facility] [place] [facility] [address] [id number] [place] [address]- 1707 Nov, [facility] [place] [facility] [address] [id number] [place] [address]- 3150 Nov, [facility] [place] [facility] [address] [id number] [place] [address]- 2823 Nov, [facility] [place] [facility] [address] [id number] [place] [address]- 0517 Nov, [facility] [place] [facility] [address] [id number] [place] [address]- 5496 Nov, [facility] [place] [facility] [address] [id number] [place] [address]- 9932 Oct, [facility] [place] [facility] [address] [id number] [place] [address]- 1293 Oct, [facility] [place] [facility] [address] [id number] [place] [address]- 2565 September, [facility] [place] [facility] [address] [id number] [place] [address]- 8000 September, [facility] [place] [facility] [address] [id number] [place] [address]16 Aug, [facility] [place] [facility] [address] [id number] [place] [address]- 3719 Aug, [facility] [place] [facility] [address] [id number] [place] [address]- 4028 Aug, [facility] [place] [facility] [address] [id number] [place] [address]- 9401 Aug, [facility] [place] [facility] [address] [id number] [place] [address]- 2145 Aug, [facility] [place] [facility] [address] [id number] [place] [address]- 6144 Aug, [facility] [place] [facility] [address] [id number] [place] [address]- 3774 Aug, [facility] [place] [facility] [address] [id number] [place] [address]- 4301 Aug, [facility] [place] [facility] [address] [id number] [place] [address]- 7581 Aug, [facility] [place] [facility] [address] [id number] [place] [address]- 1539 Aug, [facility] [place] [facility] [address] [id number] [place] [address]- 8088 Aug, [facility] [place] [facility] [address] [id number] [place] [address]- 6326 Jul, [facility] [place] [facility] [address] [id number] [place] 9226 Jul, [facility] [place] [facility] [address] [id number] [place] [address]- 0811 Jul, [facility] [place] [facility] [address] [id number] [place] [address]- 6865 Jul, [facility] [place] [facility] [address] [id number] [place] [address]- 8024 Jul, [facility] [place] [facility] [address] [id number] [place] [address]- 8714 Jul, [facility] [place] [facility] [address] [id number] [place] [address]- 7612 Jul, [facility] [place] [facility] [address] [id number] [place] [address]- 7110 24 Jun, 2013 [facility] [place] [facility] [address] [id number] [place] [address]- 8516 Jun, [facility] [place] [facility] [address] [id number] [place] [address]- 1093 Jun, [facility] [place] [facility] [address] [id number] [place] [address]- 6627 Jun, [facility] [place] [facility] [address] [id number] [place] [address]- 4519 Jun, [facility] [place] [facility] [address] [id number] [place] [address]- 9782 Jun, [facility] [place] [facility] [address] [id number] [place] [address]- 8813 Jun, [facility] [place] [facility] [address] [id number] [place] [address]- 1002 Jan, [facility] [place] [facility] [address] [id number] [place] [address]- 0029 Nov, [facility] [place] [facility] [address] [id number] [place] [address]- 9714 Nov, [facility] [place] [facility] [address] [id number] [place] [address]- 3479 Aug, [facility] [address] [id number] [place] [address]- 1496 Jun, [facility] [address] [id number] [place] [address]- 0616 Jun, [facility] [address] [id number] [place] [address]- 0276 Jun, [facility] [address] [id number] [place] [address]- 2188 May, [facility] [address] [id number] [place] [address]- 1829 May, [facility] [address] [id number] [place] [address]- 4116 May, [facility] [address] [id number] [place] [address]- 5735 May, [facility] [address] [id number] [place] [address]- 1543 Apr, [facility] [address] [id number] [place] [address]- 5120 Apr, [facility] [address] [id number] [place] [address]- 8062 Apr, [facility] [address] [id number] [place] [address] 2546 Apr, [facility] [address] [id number] [place] [address]- 9046 Mar, [facility] [address] [id number] [place] [address]- 0165 13 Feb, 2011 [facility] [place] [facility] [address] [id number] [place] [address]- 2546 16 Dec, 2010 [facility] [address] [id number] [place] [address]- 6982 Nov, [facility] [place] [address] [facility] [id number], [place] [address]- 9784 Jul, [facility] [place] [address] [facility] [id number], [place] [address]- 1617 Apr, [facility] [place] [address] [facility] [id number], [place] [address]- 6170 Apr, [facility] [place] [address] [facility] [id number], [place] [address]- 0316 Apr, [facility] [place] [address] [facility] [id number] 4510 Mar, [facility] [place] [address] [facility] [id number] 8738 Mar, [facility] [place] [address] [id number] [address]- 2639 Mar, [facility] [place] [address] [place] [address] [id number] [address]- 2238 Feb, [facility] [place] [address] [place] [address] [id number], [place] [address]- 4534 Feb, [facility] [place] [address] [place] [address] [id number] [address]- 6287 Feb, [facility] [place] [address] [address]- 9706 Feb, [facility] [place] [address] [place] [address] [id number] [address]- 8350 Dec, [facility] [place] [address] [place] [id number] [address]- 1107 Oct, [facility] [place] [address] [place] [id number] [address]- 6839 Oct, IMMUNIZATIONS No Known Immunizations SOCIAL HISTORY Never Assessed REASON FOR VISIT Refill request PLAN OF CARE VITAL SIGNS MEDICATIONS Medication Instructions Dosage Frequency Start Date End Date Duration Status Hydrochlorothiazide 25 MG Orally Once a day 1 tablet 24h Jul, 30 day(s) Active Lisinopril 40 mg Orally Once a day 1 tablet 24h Nov, 30 days Active RESULTS No Results PROCEDURES No Known [...]
--- OUTSIDE RECORDS SUMMARY | 2018-07-14 13:12 | XMS REPORT ---
Author Author JALIL FRYE Organization [facility] Address [address] [place] [address] Care Team Providers Care Case Management Associate Name Role Phone JALIL FRYE Unavailable PROBLEMS Type Condition ICD9-CM Code SIV56-ET Code Onset Dates Condition Status SNOMED Code Problem Gastroesophageal reflux disease without esophagitis K21.9 Active 782537666 Problem Depressive disorder, not elsewhere classified F32.9 Active 62452721 Problem Seasonal allergic rhinitis, unspecified allergic rhinitis trigger J30.2 Active 556098398 Problem Psoriasis L40.9 Active 9944119 Problem KARY (generalized anxiety disorder) F41.1 Active 66849928 Problem Other chronic pain G89.29 Active 22609514 Problem Porokeratosis Q82.8 Active 550355308 Problem MDD (major depressive disorder), recurrent episode, moderate F33.1 Active 958347965 Problem Situational depression F43.21 Active 86273258 Problem Essential hypertension I10 Active 34452452 Problem Methamphetamine abuse F15.10 Active 871331840 Problem 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 Active 32957794 Problem Chronic obstructive pulmonary disease, unspecified COPD type J44.9 Active 44800242 Problem 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 Active 289320119362349 Problem Epilepsy, unspecified, not intractable, without status epilepticus G40.909 Active 898183726 Problem Chronic hepatitis C B18.2 Active 053877010 Problem Rheumatoid arthritis involving multiple sites, unspecified rheumatoid factor presence M06.9 Active 529887389 Problem Anxiety F41.9 Active 57125227 Problem Panic attacks F41.0 Active 249470977 ALLERGIES No Information ENCOUNTERS Encounter Location Date Diagnosis [facility] [address] [facility] [id number] [address] Apr, [facility] [address] [facility] [id number] [address] Apr, Chronic obstructive pulmonary disease, unspecified COPD type J44.9 [place] [address] [place] [id number] [place] [address]328- 5721 Apr, [place] [address] [address]- 78[address] Apr, Essential hypertension I10 [place] [address] [address]- 4975 Apr, Essential hypertension I10 ; Psoriasis L40.9 and Epistaxis R04.0 [place] [address] 8[address]67- 7064 Apr, [place] [address] [address]- [address] Mar, MDD (major depressive disorder), recurrent episode, moderate F33.[address] [address]- [address] Mar, MDD (major depressive disorder), recurrent episode, moderate F33.1 and KARY (generalized anxiety disorder) F41.1 [place] [address] [id number] [place] [address] 68278- 8441 18 Feb, 2018 Acute non-recurrent pansinusitis J01.40 and Encounter for immunization Z23 [address] [address]- [address] Feb, Situational depression F43.21 and Screening for breast cancer Z12.31 [place] [address] [id number] [place] [address] 86497- 4730 Feb, Chronic obstructive pulmonary disease, unspecified COPD type J44.9 [place] [address] 20269- 8979 Oct, Essential hypertension I10 ; Rheumatoid arthritis involving multiple sites, unspecified rheumatoid factor presence M06.9 and Chronic hepatitis C B18.2 [place] [address] [id number] [place] [address] 98530- 2654 Oct, [place] [address] [id number] [place] [address] 26184- 5164 15 Oct, 2017 Fissure in skin of foot R23.4 [place] [address] 56100- 2195 07 Oct, 2017 Essential hypertension I10 [address] [address]- 3861 Oct, 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 [place] [address] 6[address]36- 3454 September, [address] [address]- [address] September, Pain in right ankle and joints of right foot M25.571 and Other chronic pain G89.[address] [address]881- 3088 Aug, Essential hypertension I10 ; Rheumatoid arthritis involving multiple sites, unspecified rheumatoid factor presence M06.9 ; Gastroesophageal reflux disease without esophagitis K21.9 ; Anxiety F41.9 ; 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 and Dermatitis L30.[address] [address]- [address] Aug, Onychomycosis B35.1 ; Peroneal tendinitis, unspecified laterality M76.70 and Porokeratosis Q82.8 [place] [address] [place] [id number] [place] [address] 71126- 4423 Jul, Porokeratosis Q82.8 ; Hyperhidrosis L74.519 and Callus of foot L84 [place] [address] 72[address]- 5393 Apr, [address] 8[address]- 5861 Apr, [place] [address] 97606- 1484 Mar, Well woman exam (no gynecological exam) Z00.00 ; Plantar wart B07.0 ; Pain of left foot M79.672 ; Pain in right foot M79.671 and Rheumatoid arthritis involving multiple sites, unspecified rheumatoid factor presence M06.9 [place] [address] 4[address]- 0651 Nov, Bilateral low back pain, with sciatica presence unspecified M54.5 [place] [address] 26534- 8321 Oct, Chronic obstructive pulmonary disease, unspecified COPD type J44.[address] [address]- 1450 September, [address] 37[address]- 0857 September, Bilateral low back pain, with sciatica presence unspecified M54.5 [facility]ARE [facility] [place] [address] [address] September, Body aches R52 and Upper respiratory infection, acute J06.[address] [address] September, [facility] WALK IN [address] [address] September, Left wrist injury, initial encounter S69.92XA and Contusion of wrist, left S60.212A [address] [address]76- 8021 Aug, Depressive disorder, not elsewhere classified F32.9 [facility] WALK IN [address] [address] Jul, Seasonal allergic rhinitis, unspecified allergic rhinitis trigger J30.2 ; Rheumatoid arthritis flare M06.9 and Essential hypertension I10 [address] 64028- 4831 Jul, [place] [address] [place] [id number] [place] [address]8874- 5421 Jul, Essential hypertension I10 [place] [address] [address]- 6897 Jul, Essential hypertension I10 ; Other chronic pain G89.29 ; Rheumatoid arthritis involving multiple sites, unspecified rheumatoid factor presence M06.9 and Insomnia due to medical condition G47.01 [place] [address] [address]- 3007 Jul, [place] [address] 33865- 4510 Jul, [place] [address] [place] [id number] [place] [address] 35513- 3476 Jun, [place] [address] [id number] [place] [address] 69307- 3666 Jun, 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 ; Essential hypertension I10 ; Chronic obstructive pulmonary disease, unspecified COPD type J44.9 ; Panic attacks F41.0 ; Hot flashes R23.2 ; Rheumatoid arthritis involving multiple sites, unspecified rheumatoid factor presence M06.9 ; Pain in thoracic spine M54.6 ; Other chronic pain G89.29 and Arthralgia, unspecified joint M25.50 [facility] WALK IN [place] [id number] [place] [address] May, Rheumatoid arthritis flare M06.9 [facility] [place] [id number] [place] [address] May, Left lower quadrant pain R10.32 ; Abdominal pain in female R10.9 ; Constipation, unspecified constipation type K59.00 and Gastroesophageal reflux disease without esophagitis K21.9 [facility] WALK IN [place] [id number] [place] [address]35 -3632 Mar, Herpes genitalis in women A60.09 ; Bilateral impacted cerumen H61.23 and Injury of right ring finger, initial encounter S69.91XA [facility] [address] [address] Mar, [facility] [address] [place] [id number] [place] [address] 93705- 4977 Nov, Essential hypertension I10 ; Chronic hepatitis C B18.2 ; Arthralgia, unspecified joint M25.50 ; Chronic obstructive pulmonary disease, unspecified COPD type J44.9 ; Methamphetamine abuse F15.10 ; Simple chronic bronchitis J41.0 ; Hemorrhoids, unspecified hemorrhoid type K64.9 and Anxiety F41.9 [facility] WALK IN [facility] [id number] [place] [address] -4[address] Nov, [facility] [address] [place] [id number] [place] [address] 45226- 4817 Feb, Elevated glucose R73.09 [place] [address] [id number] [place] [address] 19968- 8930 Feb, Elevated glucose R73.09 [facility] [address] [id number] [place] [address] 73064- 2565 Oct, [facility] [address] [id number] [place] [address] 70560- 3534 Oct, [facility] [address] [id number] [place] [address] 02967- 4057 Oct, Essential hypertension, benign 401.1 ; Chronic hepatitis C without mention of hepatic coma 070.54 ; Anxiety state, unspecified 300.00 ; Genital herpes 054.10 ; Methamphetamine abuse 305.70 and Excessive cerumen in both ear canals 380.4 [facility] [address] [id number] [place] [address] 60174- 5842 Oct, [facility] [address] [id number] [place] [address] 18074- 2099 Aug, [facility] [address] [id number] [place] [address] 09560- 5080 Aug, [facility] [address] [place] [address] Jul, [facility] [place] [facility] [address] [id number] [place] [address]- 8590 Jul, [facility] [place] [facility] [address] [id number] [place] [address]- 3756 Jun, [facility] [place] [facility] [address] [id number] [place] [address]- 0266 Jun, [facility] [place] [facility] [address] [id number] [place] [address]- 2393 Jun, [facility] [place] [facility] [address] [id number] [place] [address]- 9094 Jun, [facility] [place] [facility] [address] [id number] [place] [address]- 7705 May, [facility] [place] [facility] [address] [id number] [place] [address]- 6980 May, [facility] [place] [facility] [address] [id number] [place] [address]- 7093 May, [facility] [place] [facility] [address] [id number] [place] [address]- 3262 May, [facility] [place] [facility] [address] [id number] [place] [address]- 1556 May, [facility] [place] [facility] [address] [id number] [place] [address]- 7280 May, [facility] [place] [facility] [address] [id number] [place] [address]- 9116 May, [facility] [place] [facility] [address] [id number] [place] [address]- 6976 Apr, [facility] [place] [facility] [address] [id number] [place] [address]- 9656 Apr, [facility] [place] [facility] [address] [id number] [place] [address]- 8431 Apr, [facility] [place] [facility] [address] [id number] [place] [address]- 7648 Dec, [facility] [place] [facility] [address] [id number] [place] [address]- 4106 Dec, [facility] [place] [facility] [address] [id number] [place] [address]- 2887 Nov, [facility] [place] [facility] [address] [id number] [place] [address]- 8402 Nov, [facility] [place] [facility] [address] [id number] [place] [address]- 5674 Nov, [facility] [place] [facility] [address] [id number] [place] [address]- 4063 Nov, [facility] [place] [facility] [address] [id number] [place] [address]- 9316 Nov, [facility] [place] [facility] [address] [id number] [place] [address]- 3671 Nov, [facility] [place] [facility] [address] [id number] [place] [address]- 5297 Nov, [facility] [place] [facility] [address] [id number] [place] [address]- 6029 Nov, [facility] [place] [facility] [address] [id number] [place] [address]- 6555 Nov, [facility] [place] [facility] [address] [id number] [place] [address]- 9414 Nov, [facility] [place] [facility] [address] [id number] [place] [address]- 9107 Nov, [facility] [place] [facility] [address] [id number] [place] [address]- 9494 Nov, [facility] [place] [facility] [address] [id number] [place] [address]- 7207 Oct, [facility] [place] [facility] [address] [id number] [place] [address]- 3429 Oct, [facility] [place] [facility] [address] [id number] [place] [address]- 8370 September, [facility] [place] [facility] [address] [id number] [place] [address]- 8505 September, [facility] [place] [facility] [address] [id number] [place] [address]87 Aug, [facility] [place] [facility] [address] [id number] [place] [address]- 4057 Aug, [facility] [place] [facility] [address] [id number] [place] [address]- 0453 Aug, [facility] [place] [facility] [address] [id number] [place] [address]- 2305 Aug, [facility] [place] [facility] [address] [id number] [place] [address]- 5242 Aug, [facility] [place] [facility] [address] [id number] [place] [address]- 8254 Aug, [facility] [place] [facility] [address] [id number] [place] [address]- 4601 Aug, [facility] [place] [facility] [address] [id number] [place] [address]- 5394 Aug, [facility] [place] [facility] [address] [id number] [place] [address]- 7668 Aug, [facility] [place] [facility] [address] [id number] [place] [address]- 8851 Aug, [facility] [place] [facility] [address] [id number] [place] [address]- 9225 Aug, [facility] [place] [facility] [address] [id number] [place] [address]- 0826 Jul, [facility] [place] [facility] [address] [id number] [place] 7498 Jul, [facility] [place] [facility] [address] [id number] [place] [address]- 4980 Jul, [facility] [place] [facility] [address] [id number] [place] [address]- 3048 Jul, [facility] [place] [facility] [address] [id number] [place] [address]- 7422 Jul, [facility] [place] [facility] [address] [id number] [place] [address]- 1544 Jul, [facility] [place] [facility] [address] [id number] [place] [address]- 9487 Jul, [facility] [place] [facility] [address] [id number] [place] [address]- 3027 24 Jun, 2013 [facility] [place] [facility] [address] [id number] [place] [address]- 3026 Jun, [facility] [place] [facility] [address] [id number] [place] [address]- 0823 Jun, [facility] [place] [facility] [address] [id number] [place] [address]- 2278 Jun, [facility] [place] [facility] [address] [id number] [place] [address]- 6438 Jun, [facility] [place] [facility] [address] [id number] [place] [address]- 9309 Jun, [facility] [place] [facility] [address] [id number] [place] [address]- 7126 Jun, [facility] [place] [facility] [address] [id number] [place] [address]- 9893 Jan, [facility] [place] [facility] [address] [id number] [place] [address]- 7760 Nov, [facility] [place] [facility] [address] [id number] [place] [address]- 9349 Nov, [facility] [place] [facility] [address] [id number] [place] [address]- 3361 Aug, [facility] [address] [id number] [place] [address]- 8026 Jun, [facility] [address] [id number] [place] [address]- 6416 Jun, [facility] [address] [id number] [place] [address]- 5936 Jun, [facility] [address] [id number] [place] [address]- 9278 May, [facility] [address] [id number] [place] [address]- 5008 May, [facility] [address] [id number] [place] [address]- 4146 May, [facility] [address] [id number] [place] [address]- 9094 May, [facility] [address] [id number] [place] [address]- 8866 Apr, [facility] [address] [id number] [place] [address]- 3710 Apr, [facility] [address] [id number] [place] [address]- 4572 Apr, [facility] [address] [id number] [place] [address] 2546 Apr, [facility] [address] [id number] [place] [address]- 6506 Mar, [facility] [address] [id number] [place] [address]- 9846 13 Feb, 2011 [facility] [place] [facility] [address] [id number] [place] [address]- 2546 16 Dec, 2010 [facility] [address] [id number] [place] [address]- 1049 Nov, [facility] [address] [facility] [id number], [place] [address]- 7485 Jul, [facility] [address] [facility] [id number], [place] [address]- 2370 Apr, [facility] [address] [facility] [id number], [place] [address]- 8403 Apr, [facility] [address] [facility] [id number], [place] [address]- 8096 Apr, [facility] [address] [facility] [id number], [place] [address]- 3682 Mar, [facility] [address] [id number] [address]- 6221 Mar, [facility] [address] [address]- 2147 Mar, [facility] [address] [address]- 7623 Feb, [facility] [address] [address]- 4575 Feb, [facility] [address] [address]78 Feb, [facility] [address] [address]- 0119 Feb, [facility] [address] [address]- 0382 Dec, [facility] [address] [id number] [address]- 8499 Oct, [facility] [address] [id number] [address]- 5586 Oct, IMMUNIZATIONS No Known Immunizations SOCIAL HISTORY Never Assessed REASON FOR VISIT medication question PLAN OF CARE VITAL SIGNS MEDICATIONS Medication Instructions Dosage Frequency Start Date End Date Duration Status Amlodipine Besylate 5 MG Orally Once a day 1 tablet 24h Apr, 30 day(s) Active RESULTS No Results PROCEDURES [...]
--- OUTSIDE RECORDS SUMMARY | 2018-07-14 13:13 | XMS REPORT ---
Author Author JALIL FRYE Organization [facility] Address [address] [place] [address] Care Team Providers Care Switching Clerk Name Role Phone JALIL FRYE Unavailable PROBLEMS Type Condition ICD9-CM Code CGV22-JJ Code Onset Dates Condition Status SNOMED Code Problem Epilepsy, unspecified, not intractable, without status epilepticus G40.909 Active 411715613 Problem Seasonal allergic rhinitis, unspecified allergic rhinitis trigger J30.2 Active 596231583 Problem Gastroesophageal reflux disease without esophagitis K21.9 Active 033417868 Problem KARY (generalized anxiety disorder) F41.1 Active 00495877 Problem MDD (major depressive disorder), recurrent episode, moderate F33.1 Active 700859198 Problem Porokeratosis Q82.8 Active 785804920 Problem Depressive disorder, not elsewhere classified F32.9 Active 16281745 Problem Situational depression F43.21 Active 14855552 Problem Other chronic pain G89.29 Active 14170996 Problem Essential hypertension I10 Active 22033965 Problem Anxiety F41.9 Active 10635255 Problem 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 Active 93277404 Problem Chronic obstructive pulmonary disease, unspecified COPD type J44.9 Active 50461396 Problem Panic attacks F41.0 Active 197539466 Problem Methamphetamine abuse F15.10 Active 898006014 Problem 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 Active 442262430208576 Problem Chronic hepatitis C B18.2 Active 479112043 Problem Rheumatoid arthritis involving multiple sites, unspecified rheumatoid factor presence M06.9 Active 639038537 ALLERGIES No Information ENCOUNTERS Encounter Location Date Diagnosis [facility] [id number] [place] [address] Apr, [facility] [id number] [place] [address] Apr, [facility] [id number] [place] [address] 29702- 8710 Apr, [place] [address] [address] Mar, MDD (major depressive disorder), recurrent episode, moderate F33.1 [place] [id number] [place] [address] 22003- 0785 Mar, MDD (major depressive disorder), recurrent episode, moderate F33.1 and KARY (generalized anxiety disorder) F41.1 [place] [address] [address]- [address] 18 Feb, 2018 Acute non-recurrent pansinusitis J01.40 and Encounter for immunization Z23 [place] [address] [address]- 0137 Feb, Situational depression F43.21 and Screening for breast cancer Z12.31 [place] [address] 15[address]- 5594 Feb, Chronic obstructive pulmonary disease, unspecified COPD type J44.9 [place] [address] [address]68- [address] Oct, Essential hypertension I10 ; Rheumatoid arthritis involving multiple sites, unspecified rheumatoid factor presence M06.9 and Chronic hepatitis C B18.2 [place] [id number] [place] [address] 89829- 0697 Oct, [place] [address] [address]- 0738 Oct, Fissure in skin of foot R23.[address] [address]- [address] 07 Oct, 2017 Essential hypertension I10 [place] [id number] [place] [address] 51379- 7943 Oct, 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 [place] [address] 00929- 6622 September, [place] [id number] [place] [address] 91420- 4434 September, Pain in right ankle and joints of right foot M25.571 and Other chronic pain G89.29 [place] [id number] [place] [address] 78904- 8605 Aug, Essential hypertension I10 ; Rheumatoid arthritis involving multiple sites, unspecified rheumatoid factor presence M06.9 ; Gastroesophageal reflux disease without esophagitis K21.9 ; Anxiety F41.9 ; 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 and Dermatitis L30.9 [place] [address] 65331- 7469 Aug, Onychomycosis B35.1 ; Peroneal tendinitis, unspecified laterality M76.70 and Porokeratosis Q82.8 [place] [address] 27530- 4412 Jul, Porokeratosis Q82.8 ; Hyperhidrosis L74.519 and Callus of foot L84 [place] [id number] [place] [address] 34293- 6205 Apr, [place] [id number] [place] [address] 42610- 3800 Apr, [place] [id number] [place] [address] 85584- 8894 Mar, Well woman exam (no gynecological exam) Z00.00 ; Plantar wart B07.0 ; Pain of left foot M79.672 ; Pain in right foot M79.671 and Rheumatoid arthritis involving multiple sites, unspecified rheumatoid factor presence M06.9 [place] [id number] [place] [address] 52363- 4489 Nov, Bilateral low back pain, with sciatica presence unspecified M54.5 [place] [address] 91421- 9822 Oct, Chronic obstructive pulmonary disease, unspecified COPD type J44.9 [place] [id number] [place] [address] 37409- 6822 September, [place] [address] 95555- 2526 September, Bilateral low back pain, with sciatica presence unspecified M54.5 [facility] [address] [address] September, Body aches R52 and Upper respiratory infection, acute J06.9 [place] [address] [place] [address] September, [facility] [place] [address] 42442 [address] September, Left wrist injury, initial encounter S69.92XA and Contusion of wrist, left S60.212A [place] [address] 17590- [address] Aug, Depressive disorder, not elsewhere classified F32.9 [facility] [place] [id number] [place] [address] 10926 -4627 Jul, Seasonal allergic rhinitis, unspecified allergic rhinitis trigger J30.2 ; Rheumatoid arthritis flare M06.9 and Essential hypertension I10 [place] [id number] [place] [address] 09670- 7264 Jul, [place] [address] 97672- 1761 Jul, Essential hypertension I10 [place] [id number] [place] [address] 49547- 6610 Jul, Essential hypertension I10 ; Other chronic pain G89.29 ; Rheumatoid arthritis involving multiple sites, unspecified rheumatoid factor presence M06.9 and Insomnia due to medical condition G47.01 [place] [address] 89778- 0077 Jul, [place] [id number] [place] [address] 25765- 7560 Jul, [place] [address] 01904- 8438 Jun, [place] [id number] [place] [address] 47498- 3708 07 Jun, 2016 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 ; Essential hypertension I10 ; Chronic obstructive pulmonary disease, unspecified COPD type J44.9 ; Panic attacks F41.0 ; Hot flashes R23.2 ; Rheumatoid arthritis involving multiple sites, unspecified rheumatoid factor presence M06.9 ; Pain in thoracic spine M54.6 ; Other chronic pain G89.29 and Arthralgia, unspecified joint M25.50 [facility] [place] [id number] [place] [address] 30347 -3298 May, Rheumatoid arthritis flare M06.9 [facility] [place] [id number] [place] [address] 30390 -2835 May, Left lower quadrant pain R10.32 ; Abdominal pain in female R10.9 ; Constipation, unspecified constipation type K59.00 and Gastroesophageal reflux disease without esophagitis K21.9 [facility] [place] [id number] [place] [address] 31316 -3752 Mar, Herpes genitalis in women A60.09 ; Bilateral impacted cerumen H61.23 and Injury of right ring finger, initial encounter S69.91XA [place] [id number] [place] [address] 79032- 3973 Mar, [place] [id number] [place] [address] 77738- 6756 Nov, Essential hypertension I10 ; Chronic hepatitis C B18.2 ; Arthralgia, unspecified joint M25.50 ; Chronic obstructive pulmonary disease, unspecified COPD type J44.9 ; Methamphetamine abuse F15.10 ; Simple chronic bronchitis J41.0 ; Hemorrhoids, unspecified hemorrhoid type K64.9 and Anxiety F41.9 [facility] [address] [place] [address] Nov, [facility] [id number] [place] [address] 98560- 1921 Feb, Elevated glucose R73.09 [facility] [address] [place] [address] 76193- 2955 Feb, Elevated glucose R73.09 [facility] [id number] [place] [address] 62689- 0810 Oct, [facility] [id number] [place] [address] 63863- 7003 Oct, [facility] [id number] [place] [address] 89024- 6061 Oct, Essential hypertension, benign 401.1 ; Chronic hepatitis C without mention of hepatic coma 070.54 ; Anxiety state, unspecified 300.00 ; Genital herpes 054.10 ; Methamphetamine abuse 305.70 and Excessive cerumen in both ear canals 380.4 [facility] [id number] [place] [address] 21437- 7332 Oct, [facility] [id number] [place] [address] 32675- 4295 Aug, [facility] [address] [place] [address] 45136- 7033 Aug, [facility] [address] [place] [address] 25598- 8837 Jul, [facility] [address] [place] [address] 90967- 6203 Jul, [facility] [id number] [place] [address] 49336- 0248 Jun, [facility] [id number] [place] [address] 35486- 9979 Jun, [facility] [id number] [place] [address] 43343- 3004 Jun, [facility] [place] [facility] [address] [id number] [place] [address]- 8568 Jun, [facility] [place] [facility] [address] [id number] [place] [address]- 6766 May, [facility] [place] [facility] [address] [id number] [place] [address]- 1737 May, [facility] [place] [facility] [address] [id number] [place] [address]- 6327 May, [facility] [place] [facility] [address] [id number] [place] [address]- 5623 May, [facility] [place] [facility] [address] [id number] [place] [address]- 0694 May, [facility] [place] [facility] [address] [facility] [id number] [place] [address]- 6308 May, [facility] [place] [facility] [address] [id number] [place] [address]- 4721 May, [facility] [place] [facility] [address] [id number] [place] [address]- 1094 Apr, [facility] [place] [facility] [address] [id number] [place] [address]- 1522 Apr, [facility] [place] [facility] [address] [id number] [place] [address]- 4646 Apr, [facility] [place] [facility] [address] [id number] [place] [address]- 5177 Dec, [facility] [place] [facility] [address] [id number] [place] [address]- 4441 Dec, [facility] [place] [facility] [address] [id number] [place] [address]121 Nov, [facility] [place] [facility] [address] [id number] [place] [address]- 3819 Nov, [facility] [place] [facility] [address] [id number] [place] [address]- 0357 Nov, [facility] [place] [facility] [address] [id number] [place] [address]- 6477 Nov, [facility] [place] [facility] [address] [id number] [place] [address]- 0212 Nov, [facility] [place] [facility] [address] [id number] [place] [address]- 1244 Nov, [facility] [place] [facility] [address] [id number] [place] [address]- 1162 Nov, [facility] [place] [facility] [address] [id number] [place] [address]- 8343 Nov, [facility] [place] [facility] [address] [id number] [place] [address]- 3034 Nov, [facility] [place] [facility] [address] [id number] [place] [address]- 5409 Nov, [facility] [place] [facility] [address] [id number] [place] [address]- 2726 Nov, [facility] [place] [facility] [address] [id number] [place] [address]- 2611 Nov, [facility] [place] [facility] [address] [id number] [place] [address]- 9665 Oct, [facility] [place] [facility] [address] [id number] [place] [address]- 8940 Oct, [facility] [place] [facility] [address] [id number] [place] [address]- 6831 September, [facility] [place] [facility] [address] [id number] [place] [address]- 9578 September, [facility] [place] [facility] [address] [id number] [place] [address]- 7666 Aug, [facility] [place] [facility] [address] [id number] [place] [address]- 3914 Aug, [facility] [place] [facility] [address] [id number] [place] [address]- 3672 Aug, [facility] [place] [facility] [address] [id number] [place] [address]- 3616 Aug, [facility] [place] [facility] [address] [id number] [place] [address]- 1497 Aug, [facility] [place] [facility] [address] [id number] [place] [address]- 2466 Aug, [facility] [place] [facility] [address] [id number] [place] [address]- 5937 Aug, [facility] [place] [facility] [address] [id number] [place] [address]- 2652 Aug, [facility] [place] [facility] [address] [id number] [place] [address]- 0719 Aug, [facility] [place] [facility] [address] [id number] [place] [address]- 3147 Aug, [facility] [place] [facility] [address] [id number] [place] [address]- 7792 Aug, [facility] [place] [facility] [address] [id number] [place] [address]- 1804 Jul, [facility] [place] [facility] [address] [id number] [place] [address]- 7976 Jul, [facility] [place] [facility] [address] [id number] [place] [address]- 7625 Jul, [facility] [place] [facility] [address] [id number] [place] [address]- 0537 05 Jul, 2013 [facility] [place] [facility] [address] [id number] [place] [address]- 3672 05 Jul, 2013 [facility] [place] [facility] [address] [id number] [place] [address]- 2282 Jul, [facility] [place] [facility] [address] [id number] [place] [address]- 6821 Jul, [facility] [place] [facility] [address] [id number] [place] [address]- 6562 Jun, [facility] [place] [facility] [address] [id number] [place] [address]- 7246 Jun, [facility] [place] [facility] [address] [id number] [place] [address]- 9446 Jun, [facility] [place] [facility] [address] [id number] [place] [address]- 1603 Jun, [facility] [place] [facility] [address] [id number] [place] [address]- 9642 Jun, [facility] [place] [facility] [address] [facility] [id number] [place] [address]- 9754 Jun, [facility] [place] [facility] [address] [facility] [id number] [place] [address]- 8533 Jun, [facility] [place] [facility] [address] [id number] [place] [address]- 4750 Jan, [facility] [place] [facility] [address] [facility] [id number] [place] [address]- 3117 Nov, [facility] [place] [facility] [address] [facility] [id number] [place] 9853 Nov, [facility] [place] [facility] [address] [facility] [id number] [place] [address]- 6859 Aug, [facility] [place] [facility] [address] [id number] [place] [address]- 8849 Jun, [facility] [place] [facility] [address] [id number] [place] [address]- 3041 Jun, [facility] [place] [facility] [address] [facility] [id number] [place] [address]- 3508 Jun, [facility] [place] [facility] [address] [facility] [id number] [place] [address]- 0374 31 May, 2011 [facility] [place] [facility] [address] [id number] [place] [address]- 4731 May, [facility] [place] [facility] [address] [id number] [place] [address]- 6166 May, [facility] [place] [facility] [address] [id number] [place] [address]- 1520 May, [facility] [place] [facility] [address] [id number] [place] [address]- 7082 Apr, [facility] [place] [facility] [address] [id number] [place] [address]- 1776 Apr, [facility] [place] [facility] [address] [id number] [place] [address]- 9166 Apr, [facility] [place] [facility] [address] [id number] [place] [address]- 1656 Apr, [facility] [place] [facility] [address] [id number] [place] [address]- 5837 Mar, [facility] [place] [facility] [address] [id number] [place] [address]- 7930 Feb, [facility] [place] [facility] [address] [id number] [place] [address]- 0767 16 Dec, 2010 [facility] [place] [facility] [address] [id number] [place] [address]- 6245 Nov, [facility] [place] [facility] [address] [id number] [place] [address]- 1995 15 Jul, 2010 [facility] [place] [facility] [address] [id number] [place] [address]- 0892 30 Apr, 2010 [facility] [place] [facility] [address] [id number] [place] [address]- 1012 29 Apr, 2010 [facility] [place] [facility] [address] [id number] [place] [address]- 9156 Apr, [facility] [place] [facility] [id number] [place] [address]- 8341 Mar, [facility] [address] [place] [address]- 5279 Mar, [facility] [address] [place] [address]- 7730 Mar, [facility] [address] [place] [address]- 5480 Feb, [facility] [address] [place] [address]- 7184 Feb, [facility] [address] [place] [address]- 1520 Feb, [facility] [address] [place] [address]- 2125 Feb, [facility] [address] [place] [address]- 7476 Dec, [facility] [id number] [place] [address]- 9763 14 Oct, 2009 [facility] [address] [place] [address]- 6739 Oct, IMMUNIZATIONS No Known Immunizations SOCIAL HISTORY Never Assessed REASON FOR VISIT refill PLAN OF CARE VITAL SIGNS MEDICATIONS Unknown [...]
--- OUTSIDE RECORDS SUMMARY | 2018-07-14 13:13 | XMS REPORT ---
Author Author BRADEN BETZY [facility] Address [address] [place] [address] Care Team Providers Care [employer] Name Role Phone Mario FELICIANOYEN Unavailable PROBLEMS Type Condition ICD9-CM Code CGV04-BF Code Onset Dates Condition Status SNOMED Code Problem Epilepsy, unspecified, not intractable, without status epilepticus G40.909 Active 283177690 Problem Seasonal allergic rhinitis, unspecified allergic rhinitis trigger J30.2 Active 146041288 Problem Gastroesophageal reflux disease without esophagitis K21.9 Active 623213655 Problem KARY (generalized anxiety disorder) F41.1 Active 84407052 Problem MDD (major depressive disorder), recurrent episode, moderate F33.1 Active 278370391 Problem Porokeratosis Q82.8 Active 706988727 Problem Depressive disorder, not elsewhere classified F32.9 Active 32794786 Problem Situational depression F43.21 Active 63142083 Problem Other chronic pain G89.29 Active 39362342 Problem Essential hypertension I10 Active 15388853 Problem Anxiety F41.9 Active 37142957 Problem 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 Active 65707985 Problem Chronic obstructive pulmonary disease, unspecified COPD type J44.9 Active 46213513 Problem Panic attacks F41.0 Active 530307753 Problem Methamphetamine abuse F15.10 Active 919696771 Problem 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 Active 990821193356354 Problem Chronic hepatitis C B18.2 Active 821036623 Problem Rheumatoid arthritis involving multiple sites, unspecified rheumatoid factor presence M06.9 Active 091711985 ALLERGIES Substance Reaction Event Type Date Status Macrobid Unknown Drug Allergy Mar, Active ENCOUNTERS Encounter Location Date Diagnosis [facility], [place] [address] [facility] [id number] [address] Apr, [facility], [place] [address] [facility] [id number], [place] [address] Mar, MDD (major depressive disorder), recurrent episode, moderate F33.1 [place] [address] [place] [id number] [place] [address] Mar, MDD (major depressive disorder), recurrent episode, moderate F33.1 and KARY (generalized anxiety disorder) F41.[address] [address] 18 Feb, 2018 Acute non-recurrent pansinusitis J01.40 and Encounter for immunization Z23 [address] [address] Feb, Situational depression F43.21 and Screening for breast cancer Z12.[address] [address] Feb, Chronic obstructive pulmonary disease, unspecified COPD type J44.[address] [address]- [address] Oct, Essential hypertension I10 ; Rheumatoid arthritis involving multiple sites, unspecified rheumatoid factor presence M06.9 and Chronic hepatitis C B18.[address] [address] Oct, [address] [address] Oct, Fissure in skin of foot R23.[address] [address] Oct, Essential hypertension I10 [address] [address] Oct, 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 [address]- [address] September, [address] [address] September, Pain in right ankle and joints of right foot M25.571 and Other chronic pain G89.29 [place] [address] [address] Aug, Essential hypertension I10 ; Rheumatoid arthritis involving multiple sites, unspecified rheumatoid factor presence M06.9 ; Gastroesophageal reflux disease without esophagitis K21.9 ; Anxiety F41.9 ; 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 and Dermatitis L30.9 [place] [address] [address] Aug, Onychomycosis B35.1 ; Peroneal tendinitis, unspecified laterality M76.70 and Porokeratosis Q82.8 [place] [address] [address]- [address] Jul, Porokeratosis Q82.8 ; Hyperhidrosis L74.519 and Callus of foot L84 [place] [address] [address]- [address] Apr, [place] [address] [address]- [address] Apr, [place] [address] [address] Mar, Well woman exam (no gynecological exam) Z00.00 ; Plantar wart B07.0 ; Pain of left foot M79.672 ; Pain in right foot M79.671 and Rheumatoid arthritis involving multiple sites, unspecified rheumatoid factor presence M06.9 [place] [address] [address] Nov, Bilateral low back pain, with sciatica presence unspecified M54.5 [place] [address] [address]- [address] Oct, Chronic obstructive pulmonary disease, unspecified COPD type J44.9 [place] [address] 0[address]83- [address] September, [facility], [place] [id number] [place] [address]- [address]304 September, Bilateral low back pain, with sciatica presence unspecified M54.5 [facility] [id number] [place] [address] September, Body aches R52 and Upper respiratory infection, acute J06.9 [facility] [address] [place] [address] September, [facility] [address] [address] September, Left wrist injury, initial encounter S69.92XA and Contusion of wrist, left S60.212A [place] [address] [address]- [address] Aug, Depressive disorder, not elsewhere classified F32.9 [facility] [address] [address] Jul, Seasonal allergic rhinitis, unspecified allergic rhinitis trigger J30.2 ; Rheumatoid arthritis flare M06.9 and Essential hypertension I10 [place] [address] [address]41- 0651 Jul, [place] [address] [address]06- 4433 Jul, Essential hypertension I10 [place] [address] 19853- 5838 Jul, Essential hypertension I10 ; Other chronic pain G89.29 ; Rheumatoid arthritis involving multiple sites, unspecified rheumatoid factor presence M06.9 and Insomnia due to medical condition G47.01 [place] [address] [address]80- 5760 Jul, [place] [address] [address]- [address] Jul, [place] [address] [address]- [address] Jun, [place] [address] [place] [address]- [address] Jun, 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 ; Essential hypertension I10 ; Chronic obstructive pulmonary disease, unspecified COPD type J44.9 ; Panic attacks F41.0 ; Hot flashes R23.2 ; Rheumatoid arthritis involving multiple sites, unspecified rheumatoid factor presence M06.9 ; Pain in thoracic spine M54.6 ; Other chronic pain G89.29 and Arthralgia, unspecified joint M25.50 [facility] [address] [place], [place] [id number] [place] [address] May, Rheumatoid arthritis flare M06.9 [facility] [address] [place], [place] [id number] [place] [address] 17 May, 2016 Left lower quadrant pain R10.32 ; Abdominal pain in female R10.9 ; Constipation, unspecified constipation type K59.00 and Gastroesophageal reflux disease without esophagitis K21.9 [facility] [address] [place] [id number] [place] [address] Mar, Herpes genitalis in women A60.09 ; Bilateral impacted cerumen H61.23 and Injury of right ring finger, initial encounter S69.91XA [address] [place] [address]- 7[address] Mar, [place] [id number] [place] [address]39- 49[address] Nov, Essential hypertension I10 ; Chronic hepatitis C B18.2 ; Arthralgia, unspecified joint M25.50 ; Chronic obstructive pulmonary disease, unspecified COPD type J44.9 ; Methamphetamine abuse F15.10 ; Simple chronic bronchitis J41.0 ; Hemorrhoids, unspecified hemorrhoid type K64.9 and Anxiety F41.9 [facility] [address] [place] [id number] [place] [address] 8[address]663 Nov, [place] [id number] [place] [address]34- 9223 Feb, Elevated glucose R73.09 [facility], [place] [address] [place] [address] 537778- 6761 Feb, Elevated glucose R73.09 [facility], [place] [address] [address] Oct, [facility], [place] [id number] [place] [address]- 2739 Oct, [facility], [place] [address] [place] [address] 818672- 0060 Oct, Essential hypertension, benign 401.1 ; Chronic hepatitis C without mention of hepatic coma 070.54 ; Anxiety state, unspecified 300.00 ; Genital herpes 054.10 ; Methamphetamine abuse 305.70 and Excessive cerumen in both ear canals 380.4 [facility], [place] [address] [place] [address]- 6421 Oct, [facility], [place] [address] [place] [address] 00530- 5463 Aug, [facility], [place] [id number] [place] [address]- 2429 Aug, [facility], [place] [address], [place] [address] Jul, [facility], [place] [address], [place] [address] Jul, [facility], [place] [address] Jun, [facility], [place] [address] [place] [address] 30262- 6148 Jun, [facility], [place] [address] [address] Jun, [facility], [place] [address] [place] [address] 716304- 8002 Jun, [facility] [address] [id number] [place] [address]- [address] May, [facility] [place] [facility] [address] [id number] [place] [address]- [address] May, [facility] [place] [facility] [address] [id number] [place] [address]- 2463 May, [facility] [place] [facility] [address] [id number] [place] [address]- 0084 May, [facility] [place] [facility] [address] [id number] [place] [address]- 4308 May, [facility] [place] [facility] [address] [id number] [place] [address]- 3020 May, [facility] [place] [facility] [address] [id number] [place] [address]- 1791 May, [facility] [place] [facility] [address] [id number] [place] [address]- 4685 Apr, [facility] [place] [facility] [address] [id number] [place] [address]- 5530 Apr, [facility] [place] [facility] [address] [id number] [place] [address]- 3353 Apr, [facility] [place] [facility] [address] [id number] [place] [address]- 1891 Dec, [facility] [place] [facility] [address] [id number] [place] [address]- 8451 Dec, [facility] [place] [facility] [address] [id number] [place] [address]- 1394 Nov, [facility] [place] [facility] [address] [id number] [place] [address]- 6249 Nov, [facility] [place] [facility] [address] [id number] [place] [address]- 0621 Nov, [facility] [place] [facility] [address] [id number] [place] [address]- 3154 Nov, [facility] [place] [facility] [address] [id number] [place] [address]- 5057 Nov, [facility] [place] [facility] [address] [id number] [place] [address]- 8007 Nov, [facility] [place] [facility] [address] [id number] [place] [address]- 4117 Nov, [facility] [place] [facility] [address] [id number] [place] [address]- 0237 Nov, [facility] [place] [facility] [address] [id number] [place] [address]- 3145 Nov, [facility] [place] [facility] [address] [id number] [place] [address]- 2976 Nov, [facility] [place] [facility] [address] [id number] [place] [address]- 9500 Nov, [facility] [place] [facility] [address] [id number] [place] [address]- 9805 Nov, [facility] [place] [facility] [address] [id number] [place] [address]- 4115 Oct, [facility] [place] [facility] [address] [id number] [place] [address]- 5478 Oct, [facility] [place] [facility] [address] [id number] [place] [address]- 9450 September, [facility] [place] [facility] [address] [id number] [place] [address]- 5503 September, [facility] [place] [facility] [address] [id number] [place] [address]- 0713 Aug, [facility] [place] [facility] [address] [id number] [place] [address]- 4232 Aug, [facility] [place] [facility] [address] [id number] [place] [address]- 1616 Aug, [facility] [place] [facility] [address] [id number] [place] [address]- 4121 17 Aug, 2013 [facility] [place] [facility] [address] [id number] [place] [address]- 4183 14 Aug, 2013 [facility] [place] [facility] [address] [id number] [place] [address]- 2136 14 Aug, 2013 [facility] [place] [facility] [address] [id number] [place] [address]- 0271 Aug, [facility] [place] [facility] [address] [id number] [place] [address]- 9820 10 Aug, 2013 [facility] [place] [facility] [address] [id number] [place] [address]- 6059 Aug, [facility] [place] [facility] [address] [id number] [place] [address]- 1057 Aug, [facility] [place] [facility] [address] [id number] [place] [address]- 5325 Aug, [facility] [place] [facility] [address] [id number] [place] [address]- 9318 Jul, [facility] [place] [facility] [address] [id number] [place] [address]- 0835 Jul, [facility] [place] [facility] [address] [id number] [place] [address]- 5762 Jul, [facility] [place] [facility] [address] [id number] [place] [address]- 4825 Jul, [facility] [place] [facility] [address] [id number] [place] [address]- 2873 Jul, [facility] [place] [facility] [address] [id number] [place] [address]- 1859 Jul, [facility] [place] [facility] [address] [id number] [place] [address]- 6446 Jul, [facility] [place] [facility] [address] [id number] [place] [address]- 2970 Jun, [facility] [place] [facility] [address] [id number] [place] [address]- 9583 Jun, [facility] [place] [facility] [address] [id number] [place] [address]- 3816 Jun, [facility] [place] [facility] [address] [facility] [id number] [place] [address]- 9536 Jun, [facility] [place] [facility] [address] [id number] [place] [address]- 3912 Jun, [facility] [place] [facility] [address] [id number] [place] [address]- 7121 Jun, [facility] [place] [facility] [address] [facility] [id number] [place] [address]- 7800 Jun, [facility] [place] [facility] [address] [facility] [id number] [place] [address]- 2985 Jan, [facility] [place] [facility] [address] [id number] [place] [address]- 5310 Nov, [facility] [place] [facility] [address] [id number] [place] [address]- 2122 Nov, [facility] [place] [facility] [address] [facility] [id number] [place] [address]- 6828 Aug, [facility] [place] [facility] [address] [id number] [place] [address]- 6002 Jun, [facility] [place] [facility] [address] [id number] [place] [address]- 2583 Jun, [facility] [place] [facility] [address] [id number] [place] 3773 Jun, [facility] [place] [facility] [address] [facility] [id number] [place] [address] May, [facility] [place] [facility] [address] [facility] [id number] [place] [address]- 4261 May, [facility] [place] [facility] [address] [id number] [place] [address]- 3612 17 May, 2011 [facility] [place] [facility] [address] [id number] [place] [address]- 0590 05 May, 2011 [facility] [place] [facility] [address] [id number] [place] [address]- 6607 Apr, [facility] [place] [facility] [address] [id number] [place] [address]- 3706 Apr, [facility] [place] [facility] [address] [id number] [place] [address]- 0478 Apr, [facility] [place] [facility] [address] [id number] [place] [address]- 1720 08 Apr, 2011 [facility] [place] [facility] [address] [id number] [place] [address]- 4816 Mar, [facility] [place] [facility] [address] [id number] [place] [address]- 8482 Feb, [facility] [place] [facility] [address] [id number] [place] [address]- 1144 16 Dec, 2010 [facility] [place] [facility] [address] [id number] [place] [address]- 6056 Nov, [facility] [place] [facility] [address] [id number] [place] [address]- 8127 15 Jul, 2010 [facility] [place] [facility] [address] [id number] [place] [address]- 1436 30 Apr, 2010 [facility] [place] [facility] [address] [id number] [place] [address] 2549 29 Apr, 2010 [facility] [place] [facility] [address] [id number] [place] [address]- 9966 09 Apr, 2010 [facility] [place] [facility] [address] [id number] [place] [address]- 3406 20 Mar, 2010 [facility] [place] [facility] [address] [id number] [place] [address]- 6114 Mar, [facility] [place] [address] [id number], [place] [address]- [address]30 Mar, [facility] [place] [address], [place] [address]- 2056 Feb, [facility] [place] [address], [place] [address]- 4301 Feb, [facility] [place] [id number] [place] [address] 37918- 8556 Feb, [facility] [place] [id number] [place] [address] 33843- 3502 Feb, [facility] [place] [id number] [place] [address] 26745- 1348 Dec, [facility] [place] [address], [place] [address]- 8861 Oct, [facility] [place] [address], [place] [address]- 4007 Oct, IMMUNIZATIONS No Known Immunizations SOCIAL HISTORY Never Assessed REASON FOR VISIT Intake- Bre, pts b/p is highg and she forgot her medications this morning. PLAN OF CARE Activity Details Follow Up 4 Weeks Reason: Follow-up VITAL SIGNS Height 60 in 2018-03-19 Weight 185.5 lbs 2018-03-19 Heart Rate 120 bpm 2018-03-19 Respiratory Rate 20 2018-03-19 BMI 36.22 kg/m2 2018-03-19 Blood pressure systolic 188 mmHg 2018-03-19 Blood pressure diastolic 118 mmHg 2018-03-19 MEDICATIONS Medication Instructions Dosage Frequency Start Date End Date Duration Status Proventil HFA 108 (90 Base) MCG/ACT Inhalation every 4 hrs 2 puffs as needed 4h Nov, Active Atenolol 50 mg Orally Once a day 1 tablet 24h Nov, Active SudoGest 60 mg Orally every 6 hrs 1 tablet as needed 6h Feb, 7 days Active Plaquenil 200 MG Orally Once a day 1 tablet with food or milk 24h Active Omeprazole 40 MG Orally Once a day 1 capsule 24h May, 30 day(s ) Active Acyclovir 400 mg Orally Twice a day 1 tablet 12h Oct, 30 days Active Cymbalta 20 mg Orally Once a day for two weeks, then 1 capsule twice a day 1 capsule Mar, 30 day(s) Active Lisinopril 40 mg Orally Once a day 1 tablet 24h Nov, Active Hydrochlorothiazide 25 MG Orally Once a day 1 tablet 24h Jul, 30 day(s) Active RESULTS No Results [...]
--- OUTSIDE RECORDS SUMMARY | 2018-07-14 13:13 | XMS REPORT ---
Author Author BRADEN BETZY [facility] Address [address] [place] [address] Care Team Providers Care Mail Handler Equipment Operator Name Role Phone BRADEN, BETZY Unavailable PROBLEMS Type Condition ICD9-CM Code [id number] Code Onset Dates Condition Status SNOMED Code Problem Epilepsy, unspecified, not intractable, without status epilepticus G40.909 Active 276852099 Problem Seasonal allergic rhinitis, unspecified allergic rhinitis trigger J30.2 Active 566507304 Problem Gastroesophageal reflux disease without esophagitis K21.9 Active 295282512 Problem KARY (generalized anxiety disorder) F41.1 Active 16976675 Problem MDD (major depressive disorder), recurrent episode, moderate F33.1 Active 092830791 Problem Porokeratosis Q82.8 Active 699758853 Problem Depressive disorder, not elsewhere classified F32.9 Active 46678340 Problem Situational depression F43.21 Active 73076028 Problem Other chronic pain G89.29 Active 95182140 Problem Essential hypertension I10 Active 16753729 Problem Anxiety F41.9 Active 05270455 Problem 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 Active 53798559 Problem Chronic obstructive pulmonary disease, unspecified COPD type J44.9 Active 00634433 Problem Panic attacks F41.0 Active 570580071 Problem Methamphetamine abuse F15.10 Active 771659722 Problem 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 Active 926007934012494 Problem Chronic hepatitis C B18.2 Active 062088693 Problem Rheumatoid arthritis involving multiple sites, unspecified rheumatoid factor presence M06.9 Active 222123673 ALLERGIES No Information ENCOUNTERS Encounter Location Date Diagnosis [facility] [address] [facility] [id number] [address] Apr, [facility] [address] [facility] [id number], [place] [address] Mar, MDD (major depressive disorder), recurrent episode, moderate F33.1 [place] [id number] [place] [address]134- 87[address] 08 Mar, 2018 MDD (major depressive disorder), recurrent episode, moderate F33.1 and KARY (generalized anxiety disorder) F41.1 [place] [id number] [place] [address] 81459- 7066 18 Feb, 2018 Acute non-recurrent pansinusitis J01.40 and Encounter for immunization Z23 [address] [address] 04 Feb, 2018 Situational depression F43.21 and Screening for breast cancer Z12.[address] [address]- [address] Feb, Chronic obstructive pulmonary disease, unspecified COPD type J44.[address] [address]- [address] Oct, Essential hypertension I10 ; Rheumatoid arthritis involving multiple sites, unspecified rheumatoid factor presence M06.9 and Chronic hepatitis C B18.[address] [address]- [address]88 Oct, [address] [address]- [address] 15 Oct, 2017 Fissure in skin of foot R23.[address] [address]- 135[address] 07 Oct, 2017 Essential hypertension I10 [place] [id number] [place] [address] 93908- 3677 Oct, 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 [address]- [address] September, [place] [id number] [place] [address] 59779- 7744 September, Pain in right ankle and joints of right foot M25.571 and Other chronic pain G89.29 [place] [id number] [place] [address] 22414- 9009 Aug, Essential hypertension I10 ; Rheumatoid arthritis involving multiple sites, unspecified rheumatoid factor presence M06.9 ; Gastroesophageal reflux disease without esophagitis K21.9 ; Anxiety F41.9 ; 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 and Dermatitis L30.9 [place] [address] [address] Aug, Onychomycosis B35.1 ; Peroneal tendinitis, unspecified laterality M76.70 and Porokeratosis Q82.[address] [address] Jul, Porokeratosis Q82.8 ; Hyperhidrosis L74.519 and Callus of foot L84 [address] [address]- 8[address] Apr, [place] [address] [address] Apr, [address] [address]- 67[address] Mar, Well woman exam (no gynecological exam) Z00.00 ; Plantar wart B07.0 ; Pain of left foot M79.672 ; Pain in right foot M79.671 and Rheumatoid arthritis involving multiple sites, unspecified rheumatoid factor presence M06.9 [place] [address] [address]- [address] Nov, Bilateral low back pain, with sciatica presence unspecified M54.[address] [address]- [address] Oct, Chronic obstructive pulmonary disease, unspecified COPD type J44.9 [place] [address] 9[address]- 3649 September, [place] [id number] [place] [address] September, Bilateral low back pain, with sciatica presence unspecified M54.5 [facility] [id number] [place] [address]57[address]92 September, Body aches R52 and Upper respiratory infection, acute J06.9 [facility] [address] [place] [address] September, [facility] [address] [address] September, Left wrist injury, initial encounter S69.92XA and Contusion of wrist, left S60.212A [facility] [address] [address]- [address] Aug, Depressive disorder, not elsewhere classified F32.9 [facility] [address] [address] Jul, Seasonal allergic rhinitis, unspecified allergic rhinitis trigger J30.2 ; Rheumatoid arthritis flare M06.9 and Essential hypertension I10 [facility] [id number] [place] [address] 66663- 6628 Jul, [facility] [address] [address]- 0098 Jul, Essential hypertension I10 [facility] [id number] [place] [address] 67557- 2940 Jul, Essential hypertension I10 ; Other chronic pain G89.29 ; Rheumatoid arthritis involving multiple sites, unspecified rheumatoid factor presence M06.9 and Insomnia due to medical condition G47.01 [facility] [id number] [place] [address] 41964- 7001 Jul, [facility] [address] [address]- 82[address] Jul, [facility] [id number] [place] [address] 26116- 3616 Jun, [place] [id number] [place] [address]- [address] 07 Jun, 2016 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 ; Essential hypertension I10 ; Chronic obstructive pulmonary disease, unspecified COPD type J44.9 ; Panic attacks F41.0 ; Hot flashes R23.2 ; Rheumatoid arthritis involving multiple sites, unspecified rheumatoid factor presence M06.9 ; Pain in thoracic spine M54.6 ; Other chronic pain G89.29 and Arthralgia, unspecified joint M25.50 [facility] [address] [place] [address]37 [address] May, Rheumatoid arthritis flare M06.9 [facility] [address] [address] 17 May, 2016 Left lower quadrant pain R10.32 ; Abdominal pain in female R10.9 ; Constipation, unspecified constipation type K59.00 and Gastroesophageal reflux disease without esophagitis K21.9 [facility] [address] [address] Mar, Herpes genitalis in women A60.09 ; Bilateral impacted cerumen H61.23 and Injury of right ring finger, initial encounter S69.91XA [place] [id number] [place] [address] 96283- 3220 Mar, [address] [address]- 5[address] Nov, Essential hypertension I10 ; Chronic hepatitis C B18.2 ; Arthralgia, unspecified joint M25.50 ; Chronic obstructive pulmonary disease, unspecified COPD type J44.9 ; Methamphetamine abuse F15.10 ; Simple chronic bronchitis J41.0 ; Hemorrhoids, unspecified hemorrhoid type K64.9 and Anxiety F41.9 [facility] [place] [id number] [place] [address]345 [address] Nov, [address] [address]- [address] Feb, Elevated glucose R73.09 [facility] [address] [address] Feb, Elevated glucose R73.09 [facility] [id number] [place] [address] 610992- 3155 Oct, [facility] [id number] [place] [address] 772275- 7868 Oct, [facility] [id number] [place] [address] 233362- 8374 Oct, Essential hypertension, benign 401.1 ; Chronic hepatitis C without mention of hepatic coma 070.54 ; Anxiety state, unspecified 300.00 ; Genital herpes 054.10 ; Methamphetamine abuse 305.70 and Excessive cerumen in both ear canals 380.4 [facility] [id number] [place] [address] 60188- 6238 Oct, [facility] [id number] [place] [address] 67102- 8839 Aug, [facility] [id number] [place] [address] 32088- 7862 Aug, [facility] [id number] [place] [address] 38724- 4974 Jul, [facility] [address] [address]- [address] Jul, [facility] [id number] [place] [address] 04621- 6919 Jun, [facility] [id number] [place] [address] 80075- 3379 Jun, [facility] [id number] [place] [address] 402489- 3059 Jun, [facility] [id number] [place] [address] 834673- 1174 Jun, [facility] [id number] [place] [address] May, [facility] [place] [facility] [address] [id number] [place] [address]- 4607 May, [facility] [place] [facility] [address] [id number] [place] [address]- 2707 May, [facility] [place] [facility] [address] [id number] [place] [address]- 3397 May, [facility] [place] [facility] [address] [id number] [place] [address]- 6322 May, [facility] [place] [facility] [address] [id number] [place] [address]- 7412 May, [facility] [place] [facility] [address] [id number] [place] [address]- 6233 May, [facility] [place] [facility] [address] [id number] [place] [address]- 9787 Apr, [facility] [place] [facility] [address] [id number] [place] [address]- 1388 Apr, [facility] [place] [facility] [address] [id number] [place] [address]- 6082 Apr, [facility] [place] [facility] [address] [id number] [place] [address]- 0744 Dec, [facility] [place] [facility] [address] [id number] [place] [address]- 4473 Dec, [facility] [place] [facility] [address] [id number] [place] [address]- 4521 Nov, [facility] [place] [facility] [address] [id number] [place] [address]- 7622 Nov, [facility] [place] [facility] [address] [id number] [place] [address]- 4469 Nov, [facility] [place] [facility] [address] [id number] [place] [address]- 2233 Nov, [facility] [place] [facility] [address] [id number] [place] [address]- 3410 Nov, [facility] [place] [facility] [address] [id number] [place] [address]- 4850 Nov, [facility] [place] [facility] [address] [id number] [place] [address]- 8019 Nov, [facility] [place] [facility] [address] [id number] [place] [address]- 2650 Nov, [facility] [place] [facility] [address] [id number] [place] [address]- 6479 Nov, [facility] [place] [facility] [address] [id number] [place] [address]- 8508 Nov, [facility] [place] [facility] [address] [id number] [place] [address]- 1469 Nov, [facility] [place] [facility] [address] [id number] [place] [address]- 4380 Nov, [facility] [place] [facility] [address] [id number] [place] [address]- 2432 Oct, [facility] [place] [facility] [address] [id number] [place] [address]- 4613 Oct, [facility] [place] [facility] [address] [id number] [place] [address]- 7334 September, [facility] [place] [facility] [address] [id number] [place] [address]- 5410 September, [facility] [place] [facility] [address] [id number] [place] [address]- 6380 Aug, [facility] [place] [facility] [address] [id number] [place] [address]- 1455 Aug, [facility] [place] [facility] [address] [id number] [place] [address]- 8621 Aug, [facility] [place] [facility] [address] [id number] [place] [address]- 6940 17 Aug, 2013 [facility] [place] [facility] [address] [id number] [place] [address]- 4530 14 Aug, 2013 [facility] [place] [facility] [address] [id number] [place] [address]- 3201 14 Aug, 2013 [facility] [place] [facility] [address] [id number] [place] [address]- 7075 Aug, [facility] [place] [facility] [address] [id number] [place] [address]- 7730 Aug, [facility] [place] [facility] [address] [id number] [place] [address]- 0482 Aug, [facility] [place] [facility] [address] [id number] [place] [address]- 0513 Aug, [facility] [place] [facility] [address] [id number] [place] [address]- 5736 Aug, [facility] [place] [facility] [address] [id number] [place] [address]- 4212 Jul, [facility] [place] [facility] [address] [id number] [place] [address]- 0134 Jul, [facility] [place] [facility] [address] [id number] [place] [address]- 6921 Jul, [facility] [place] [facility] [address] [id number] [place] [address]- 5562 Jul, [facility] [place] [facility] [address] [id number] [place] [address]- 2563 05 Jul, 2013 [facility] [place] [facility] [address] [id number] [place] [address]- 3061 Jul, [facility] [place] [facility] [address] [id number] [place] [address]- 4427 Jul, [facility] [place] [facility] [address] [id number] [place] [address]- 3132 Jun, [facility] [place] [facility] [address] [id number] [place] [address]- 6992 Jun, [facility] [place] [facility] [address] [id number] [place] [address]- 5246 Jun, [facility] [place] [facility] [address] [id number] [place] 6296 Jun, [facility] [place] [facility] [address] [id number] [place] [address]- 6746 Jun, [facility] [place] [facility] [address] [id number] [place] [address]- 8821 Jun, [facility] [place] [facility] [address] [id number] [place] [address]- 6556 Jun, [facility] [place] [facility] [address] [facility] [id number] [place] 8466 Jan, [facility] [place] [facility] [address] [id number] [place] [address]- 2626 Nov, [facility] [place] [facility] [address] [id number] [place] [address]- 6692 Nov, [facility] [place] [facility] [address] [facility] [id number] [place] [address]- 5722 Aug, [facility] [place] [facility] [address] [id number] [place] [address]- 4010 Jun, [facility] [place] [facility] [address] [id number] [place] [address]- 4203 Jun, [facility] [place] [facility] [address] [id number] [place] [address]- 4682 Jun, [facility] [place] [facility] [address] [id number] [place] [address]- 4191 May, [facility] [place] [facility] [address] [id number] [place] [address]- 7697 May, [facility] [place] [facility] [address] [id number] [place] [address]- 2760 May, [facility] [address] [id number] [place] [address]- 6042 May, [facility] [place] [facility] [address] [id number] [place] 1185 Apr, [facility] [place] [facility] [address] [id number] [place] [address]- 6926 Apr, [facility] [place] [facility] [address] [id number] [place] [address]- 3287 Apr, [facility] [place] [facility] [address] [id number] [place] [address]- 2028 Apr, [facility] [place] [facility] [address] [id number] [place] [address]- 8440 Mar, [facility] [place] [facility] [address] [id number] [place] [address]- 9336 Feb, [facility] [place] [facility] [address] [id number] [place] [address]- 3267 16 Dec, 2010 [facility] [place] [facility] [address] [id number] [place] [address]- 8077 Nov, [facility] [place] [facility] [address] [id number] [place] [address]- 0181 Jul, [facility] [place] [facility] [address] [id number] [place] [address]- 8951 30 Apr, 2010 [facility] [place] [facility] [address] [id number] [place] [address]- 9436 29 Apr, 2010 [facility] [place] [facility] [address] [id number] [place] [address]- 2327 Apr, [facility] [place] [facility] [address] [id number] [place] [address]188 Mar, [facility] [place] [facility] [address] [id number] [place] [address]- 4648 Mar, [facility] [place] [facility] [id number] [address]- 2546 Mar, [facility] [id number] [address]- 2786 Feb, [facility] [address], [place] [address]- 2546 Feb, [facility] [id number], [place] [address]- 4076 Feb, [facility] [address], [place] [address]- 2546 Feb, [facility] [id number], [place] [address]- 1736 Dec, [facility] [address], [place] [address]- 7666 Oct, [facility] [id number], [place] [address]- 5499 Oct, IMMUNIZATIONS No Known Immunizations SOCIAL HISTORY Never Assessed REASON FOR VISIT medication PLAN OF CARE VITAL SIGNS MEDICATIONS Medication Instructions Dosage Frequency Start Date End Date Duration Status Cymbalta 20 mg Orally Once a day for two weeks, then 1 capsule twice a day 1 capsule Mar, 30 day(s) Active RESULTS No Results PROCEDURES [...]
--- OUTSIDE RECORDS SUMMARY | 2018-07-14 13:14 | XMS REPORT ---
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 Name Role Phone JALIL FRYE Unavailable PROBLEMS Type Condition ICD9-CM Code [id number] Code Onset Dates Condition Status SNOMED Code Problem Panic attacks F41.0 Active 048622113 Problem Epilepsy, unspecified, not intractable, without status epilepticus G40.909 Active 556046394 Problem Rheumatoid arthritis involving multiple sites, unspecified rheumatoid factor presence M06.9 Active 609973196 Problem Situational depression F43.21 Active 52333160 Problem Other chronic pain G89.29 Active 08414947 Problem Seasonal allergic rhinitis, unspecified allergic rhinitis trigger J30.2 Active 621864058 Problem Gastroesophageal reflux disease without esophagitis K21.9 Active 395796277 Problem Porokeratosis Q82.8 Active 406860736 Problem Depressive disorder, not elsewhere classified F32.9 Active 44234255 Problem 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 Active 86442155 Problem Essential hypertension I10 Active 65448138 Problem Chronic obstructive pulmonary disease, unspecified COPD type J44.9 Active 92131091 Problem Methamphetamine abuse F15.10 Active 012787376 Problem Anxiety F41.9 Active 76414751 Problem Chronic hepatitis C B18.2 Active 270930971 Problem 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 Active [id number] ALLERGIES Substance Reaction Event Type Date Status Macrobid Unknown Drug Allergy Feb, Active ENCOUNTERS Encounter Location Date Diagnosis [facility] [address] [facility] [id number], [place] [address] Feb, Acute non-recurrent pansinusitis J01.40 and Encounter for immunization Z23 [facility] [address] [facility] [id number], [place] [address] Feb, Situational depression F43.21 and Screening for breast cancer Z12.31 [place] [address] [place] [id number] [place] [address]111- 6[address] Feb, Chronic obstructive pulmonary disease, unspecified COPD type J44.9 [place] [id number] [place] [address] 61929- 8764 29 Oct, 2017 Essential hypertension I10 ; Rheumatoid arthritis involving multiple sites, unspecified rheumatoid factor presence M06.9 and Chronic hepatitis C B18.[address] [address]- [address] 15 Oct, 2017 [place] [address] [address]- [address] 15 Oct, 2017 Fissure in skin of foot R23.4 [place] [id number] [place] [address] 39723- 7304 07 Oct, 2017 Essential hypertension I10 [address] [address]- 6824 04 Oct, 2017 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 [place] [id number] [place] [address] 23923- 8933 September, [address] [address]- [address]60 September, Pain in right ankle and joints of right foot M25.571 and Other chronic pain G89.[address] [address]- [address] Aug, Essential hypertension I10 ; Rheumatoid arthritis involving multiple sites, unspecified rheumatoid factor presence M06.9 ; Gastroesophageal reflux disease without esophagitis K21.9 ; Anxiety F41.9 ; 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 and Dermatitis L30.[address] [address]- 9[address] Aug, Onychomycosis B35.1 ; Peroneal tendinitis, unspecified laterality M76.70 and Porokeratosis Q82.[address] [place] [id number] [place] [address] 83328- 4295 Jul, Porokeratosis Q82.8 ; Hyperhidrosis L74.519 and Callus of foot L84 [place] [id number] [place] [address] 13144- 8575 Apr, [place] [address] 6[address]56- 3685 Apr, [place] [address] [address]- 7216 Mar, Well woman exam (no gynecological exam) Z00.00 ; Plantar wart B07.0 ; Pain of left foot M79.672 ; Pain in right foot M79.671 and Rheumatoid arthritis involving multiple sites, unspecified rheumatoid factor presence M06.[address] [address]- [address]28 Nov, Bilateral low back pain, with sciatica presence unspecified M54.[address] [address]- 5151 Oct, Chronic obstructive pulmonary disease, unspecified COPD type J44.9 [place] [address] [address]- 38[address] September, [address] 18656- 0354 September, Bilateral low back pain, with sciatica presence unspecified M54.5 [facility] [address] [place] [id number] [place] [address]893 -6854 September, Body aches R52 and Upper respiratory infection, acute J06.[address] [address] September, [facility] [address] [place] [id number] [place] [address]671 -9384 September, Left wrist injury, initial encounter S69.92XA and Contusion of wrist, left S60.212A [facility] [id number] [place] [address] 83489- 8579 Aug, Depressive disorder, not elsewhere classified F32.9 [facility] [id number] [place] [address] 8[address]16 -6095 Jul, Seasonal allergic rhinitis, unspecified allergic rhinitis trigger J30.2 ; Rheumatoid arthritis flare M06.9 and Essential hypertension I10 [place] [id number] [place] [address] 06336- 4012 Jul, [place] [id number] [place] [address] 61465- 8770 Jul, Essential hypertension I10 [place] [id number] [place] [address] 94735- 8019 Jul, Essential hypertension I10 ; Other chronic pain G89.29 ; Rheumatoid arthritis involving multiple sites, unspecified rheumatoid factor presence M06.9 and Insomnia due to medical condition G47.01 [facility] [id number] [place] [address] 52092- 1129 Jul, [place] [address] [address] [id number] [place] [address] 38963- 7399 Jul, [place] [address] [place] [address] [id number] [place] [address] 23537- 0180 Jun, [place] [id number] [place] [address] 11595- 7622 Jun, 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 ; Essential hypertension I10 ; Chronic obstructive pulmonary disease, unspecified COPD type J44.9 ; Panic attacks F41.0 ; Hot flashes R23.2 ; Rheumatoid arthritis involving multiple sites, unspecified rheumatoid factor presence M06.9 ; Pain in thoracic spine M54.6 ; Other chronic pain G89.29 and Arthralgia, unspecified joint M25.50 [facility] [id number] [place] [address] 30795 -6063 May, Rheumatoid arthritis flare M06.9 [facility] [id number] [place] [address] -9760 17 May, 2016 Left lower quadrant pain R10.32 ; Abdominal pain in female R10.9 ; Constipation, unspecified constipation type K59.00 and Gastroesophageal reflux disease without esophagitis K21.9 [facility] [address] [address] Mar, Herpes genitalis in women A60.09 ; Bilateral impacted cerumen H61.23 and Injury of right ring finger, initial encounter S69.91XA [place] [address] [address]- 3061 Mar, [place] [address] 45594- 7036 Nov, Essential hypertension I10 ; Chronic hepatitis C B18.2 ; Arthralgia, unspecified joint M25.50 ; Chronic obstructive pulmonary disease, unspecified COPD type J44.9 ; Methamphetamine abuse F15.10 ; Simple chronic bronchitis J41.0 ; Hemorrhoids, unspecified hemorrhoid type K64.9 and Anxiety F41.9 [facility] [id number] [place] [address] 88751 -2575 Nov, [place] [id number] [place] [address] 58267- 7354 Feb, Elevated glucose R73.09 [place] [address] 00854- 2854 Feb, Elevated glucose R73.09 [place] [id number] [place] [address] 25984- 4446 Oct, [place] [address] 33523- 2891 Oct, [place] [address] 21775- 1932 Oct, Essential hypertension, benign 401.1 ; Chronic hepatitis C without mention of hepatic coma 070.54 ; Anxiety state, unspecified 300.00 ; Genital herpes 054.10 ; Methamphetamine abuse 305.70 and Excessive cerumen in both ear canals 380.4 [facility] [id number] [place] [address] 47136- 0312 Oct, [facility] [address] [id number] [address] Aug, [facility] [id number] [place] [address] 30803- 9493 Aug, [facility] [place] [facility] [id number] [place] [address] 51134- 2034 Jul, [facility] [id number] [place] [address] 60780- 5711 Jul, [facility] [id number] [place] [address] 45915- 2855 Jun, [facility] [id number] [place] [address] 75068- 1654 Jun, [facility] [id number] [place] [address] 65387- 4499 Jun, [facility] [id number] [place] [address] 61411- 0202 Jun, [facility] [address] [address] 5160 May, [facility] [place] [id number] [place] [address] 83444- 7978 May, [facility] [address], [place] [address]- 4454 May, [facility] [id number] [place] [address] 19544- 7838 May, [facility] [address], [place] [address]- 2806 May, [facility] [id number] [place] [address], [place] [address]- 7884 May, [facility] [place] [facility] [address] [id number] [place] [address]- 8636 May, [facility] [place] [facility] [address] [id number] [place] [address]- 8975 Apr, [facility] [place] [facility] [address] [id number] [place] [address]- 9026 Apr, [facility] [place] [facility] [address] [id number] [place] [address]- 7086 Apr, [facility] [place] [facility] [address] [id number] [place] [address]- 5554 Dec, [facility] [place] [facility] [address] [id number] [place] [address]- 5382 Dec, [facility] [place] [facility] [address] [id number] [place] [address]- 5848 Nov, [facility] [place] [facility] [address] [id number] [place] [address]- 9423 Nov, [facility] [place] [facility] [address] [id number] [place] [address]- 6403 Nov, [facility] [place] [facility] [address] [id number] [place] [address]- 3903 Nov, [facility] [place] [facility] [address] [id number] [place] [address]- 9985 Nov, [facility] [place] [facility] [address] [id number] [place] [address]- 3399 Nov, [facility] [place] [facility] [address] [id number] [place] [address]- 5396 Nov, [facility] [place] [facility] [address] [id number] [place] [address]- 9896 Nov, [facility] [place] [facility] [address] [id number] [place] [address]- 5746 Nov, [facility] [place] [facility] [address] [id number] [place] [address]- 3002 Nov, [facility] [place] [facility] [address] [id number] [place] [address]- 1532 Nov, [facility] [place] [facility] [address] [id number] [place] [address]- 9952 Nov, [facility] [place] [facility] [address] [id number] [place] [address]- 3175 Oct, [facility] [place] [facility] [address] [id number] [place] [address]- 4826 Oct, [facility] [place] [facility] [address] [id number] [place] [address]- 7220 September, [facility] [place] [facility] [address] [id number] [place] [address]- 4007 September, [facility] [place] [facility] [address] [id number] [place] [address]- 4440 Aug, [facility] [place] [facility] [address] [id number] [place] [address]- 9419 Aug, [facility] [place] [facility] [address] [id number] [place] [address]- 8250 Aug, [facility] [place] [facility] [address] [id number] [place] [address]- 6739 Aug, [facility] [place] [facility] [address] [id number] [place] [address]- 0984 Aug, [facility] [place] [facility] [address] [id number] [place] [address]- 3271 Aug, [facility] [place] [facility] [address] [id number] [place] [address]- 1878 Aug, [facility] [place] [facility] [address] [id number] [place] [address]- 9954 Aug, [facility] [place] [facility] [address] [id number] [place] [address]- 5218 Aug, [facility] [place] [facility] [address] [id number] [place] [address]- 6838 Aug, [facility] [place] [facility] [address] [id number] [place] [address]- 1210 Aug, [facility] [place] [facility] [address] [facility] [id number] [place] [address]- 3933 Jul, [facility] [place] [facility] [address] [id number] [place] [address]- 4437 Jul, [facility] [place] [facility] [address] [id number] [place] [address]- 4837 Jul, [facility] [place] [facility] [address] [facility] [id number] [place] [address]- 5762 Jul, [facility] [place] [facility] [address] [facility] [id number] [place] [address]- 9197 Jul, [facility] [place] [facility] [address] [id number] [place] [address]- 7279 Jul, [facility] [place] [facility] [address] [facility] [id number] [place] [address]- 9587 Jul, [facility] [place] [facility] [address] [facility] [id number] [place] [address]- 8859 24 Jun, 2013 [facility] [place] [facility] [address] [facility] [id number] [place] [address]- 5963 Jun, [facility] [place] [facility] [address] [id number], [place] [address]- 3543 Jun, [facility] [place] [facility] [address] [id number] [place] [address]- 6438 Jun, [facility] [place] [facility] [address] [facility] [id number] [place] [address]- 6308 19 Jun, 2013 [facility] [place] [facility] [address] [facility] [id number] [place] [address]- 3709 14 Jun, 2013 [facility] [place] [facility] [address] [id number] [place] [address]- 9820 14 Jun, 2013 [facility] [place] [facility] [address] [id number] [place] [address]- 1224 Jan, [facility] [place] [facility] [address] [id number] [place] [address]- 3356 Nov, [facility] [place] [facility] [address] [id number] [place] [address]- 7352 Nov, [facility] [place] [facility] [address] [id number] [place] [address]- 9236 Aug, [facility] [place] [facility] [address] [id number] [place] [address]- 7738 Jun, [facility] [place] [facility] [address] [id number] [place] [address]- 3771 Jun, [facility] [place] [facility] [address] [id number] [place] [address]- 2297 Jun, [facility] [place] [facility] [address] [id number] [place] [address]- 5475 May, [facility] [place] [facility] [address] [id number] [place] [address]- 3964 May, [facility] [place] [facility] [address] [id number] [place] [address]- 2597 May, [facility] [place] [facility] [address] [id number] [place] [address]- 9609 May, [facility] [place] [facility] [address] [id number] [place] [address]- 5090 Apr, [facility] [place] [facility] [address] [id number] [place] [address]- 5484 Apr, [facility] [place] [facility] [address] [id number] [place] [address]- 0232 Apr, [facility] [place] [facility] [address] [id number] [place] [address]- 9155 08 Apr, 2011 [facility] [place] [facility] [address] [id number] [place] [address]- 6449 10 Mar, 2011 [facility] [place] [facility] [address] [id number] [place] 3366 13 Feb, 2011 [facility] [place] [facility] [address] [id number] [place] [address]- 8996 16 Dec, 2010 [facility] [place] [facility] [address] [id number] [place] [address]- 6726 Nov, [facility] [place] [facility] [address] [id number] [place] [address]- 1366 Jul, [facility] [place] [facility] [address] [id number] [place] [address]- 8093 30 Apr, 2010 [facility] [place] [facility] [address] [id number] [place] [address]- 6043 29 Apr, 2010 [facility] [place] [facility] [address] [id number] [place] [address]- 7711 Apr, [facility] [place] [facility] [address] [id number] [place] [address]- 1498 Mar, [facility] [place] [facility] [address] [id number] [place] [address]- 3291 Mar, [facility] [place] [facility] [address] [id number] [place] [address]- 5330 05 Mar, 2010 [facility] [place] [facility] [address] [id number] [place] [address]- 9537 21 Feb, 2010 [facility] [place] [facility] [address] [id number] [place] [address]- 2851 21 Feb, 2010 [facility] [place] [facility] [address] [id number] [place] [address]- 2894 14 Feb, 2010 [facility] [place] [facility] [address] [id number] [place] [address]- 2219 12 Feb, 2010 [facility] [place] [facility] [address] [facility] [id number] [place] [address]- 5587 16 Dec, 2009 [facility] [address] [facility] [id number], [place] [address]- 1511 14 Oct, 2009 [facility] [address] [facility] [id number] [place] [address]- 0613 11 Oct, 2009 IMMUNIZATIONS Vaccine Route Administration Date Status FLULAVAL QUAD 0.5ML (6 MO & UP) 2018 IM Intramuscular Feb 26, 2018 Administered SOCIAL HISTORY Never Assessed REASON FOR VISIT Anxiety f/u Ronnie GARNER , sinus infection and cold [id number] - kPage PATSY PLAN OF CARE Activity Details Follow Up prn Reason: VITAL SIGNS Height 60 in 2018-02-26 Weight 183.2 lbs 2018-02-26 Temperature 98.4 degrees Fahrenheit 2018-02-26 Heart Rate 104 bpm 2018-02-26 Respiratory Rate 20 2018-02-26 BMI 35.77 kg/m2 2018-02-26 Blood pressure systolic 128 mmHg 2018-02-26 Blood pressure diastolic 88 mmHg 2018-02-26 MEDICATIONS Medication Instructions Dosage Frequency Start Date End Date Duration Status SudoGest 60 mg Orally every 6 hrs 1 tablet as needed 6h Feb, 7 days Active Lisinopril 40 mg Orally Once a day 1 tablet 24h Nov, Active Omeprazole 40 MG Orally Once a day 1 capsule 24h May, 30 day(s ) Active Atenolol 50 mg Orally Once a day 1 tablet 24h Nov, Active Doxycycline Hyclate 100 mg Orally twice a day 1 capsule 12h Feb, Feb, 7 days Active Proventil HFA 108 (90 Base) MCG/ACT Inhalation every 4 hrs 2 puffs as needed 4h Nov, Active Hydrochlorothiazide 25 MG Orally Once a day 1 tablet 24h Jul, 30 day(s) Active Plaquenil 200 MG Orally Once a day 1 tablet with food or milk 24h Active Acyclovir 400 mg Orally Twice a day 1 tablet 12h Oct, 30 days Active RESULTS No Results PROCEDURES Procedure Date Ordered Result Body Site FLULAVAL QUAD 0.5ML (6 MO AND UP) 2018 Feb 26, 2018 SINGLE IMMUNIZATION ADMIN Feb 26, 2018 INSTRUCTIONS MEDICATIONS ADMINISTERED No Known Medications MEDICAL [...]
--- OUTSIDE RECORDS SUMMARY | 2018-07-14 13:15 | XMS REPORT ---
Author Author LORI DANIEL Organization [facility] Address [address] [place] [address] Care Team Providers Care City Designer Name Role Phone DANIEL SANDOVAL Unavailable PROBLEMS Type Condition ICD9-CM Code TDG06-NP Code Onset Dates Condition Status SNOMED Code Problem 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 Active 804059121689597 Problem Rheumatoid arthritis involving multiple sites, unspecified rheumatoid factor presence M06.9 Active 788096635 Problem Panic attacks F41.0 Active 933087143 Problem Other chronic pain G89.29 Active 68947817 Problem Porokeratosis Q82.8 Active 789275494 Problem Gastroesophageal reflux disease without esophagitis K21.9 Active 540260346 Problem Epilepsy, unspecified, not intractable, without status epilepticus G40.909 Active 108999232 Problem Depressive disorder, not elsewhere classified F32.9 Active 10099461 Problem Seasonal allergic rhinitis, unspecified allergic rhinitis trigger J30.2 Active 075888989 Problem Chronic hepatitis C B18.2 Active 951919446 Problem Essential hypertension I10 Active 86289014 Problem 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 Active 38523880 Problem Chronic obstructive pulmonary disease, unspecified COPD type J44.9 Active 49390701 Problem Methamphetamine abuse F15.10 Active 700685795 Problem Anxiety F41.9 Active 98859402 ALLERGIES No Information ENCOUNTERS Encounter Location Date Diagnosis [facility] [id number] [address] Oct, Essential hypertension I10 ; Rheumatoid arthritis involving multiple sites, unspecified rheumatoid factor presence M06.9 and Chronic hepatitis C B18.2 [facility] [id number] [address] Oct, [facility] [id number] [address] Oct, Fissure in skin of foot R23.4 [place] [id number] [place] [address]- 8818 Oct, Essential hypertension I10 [place] [id number] [place] [address] 68915- 5304 Oct, 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 [place] [address] [address] September, [place] [address] [address] September, Pain in right ankle and joints of right foot M25.571 and Other chronic pain G89.29 [place] [id number] [place] [address] 21990- 5692 Aug, Essential hypertension I10 ; Rheumatoid arthritis involving multiple sites, unspecified rheumatoid factor presence M06.9 ; Gastroesophageal reflux disease without esophagitis K21.9 ; Anxiety F41.9 ; 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 and Dermatitis L30.9 [place] [id number] [place] [address]- [address] Aug, Onychomycosis B35.1 ; Peroneal tendinitis, unspecified laterality M76.70 and Porokeratosis Q82.8 [place] [id number] [place] [address] 97275- 4305 Jul, Porokeratosis Q82.8 ; Hyperhidrosis L74.519 and Callus of foot L84 [place] [id number] [place] [address]- 1921 Apr, [place] [address] [address] Apr, [place] [id number] [place] [address]- 4[address] Mar, Well woman exam (no gynecological exam) Z00.00 ; Plantar wart B07.0 ; Pain of left foot M79.672 ; Pain in right foot M79.671 and Rheumatoid arthritis involving multiple sites, unspecified rheumatoid factor presence M06.9 [place] [address] [address] Nov, Bilateral low back pain, with sciatica presence unspecified M54.5 [place] [address] [address] Oct, Chronic obstructive pulmonary disease, unspecified COPD type J44.9 [address] [address] [address] September, [address] [address] September, Bilateral low back pain, with sciatica presence unspecified M54.5 [facility] [address] [place] [address] September, Body aches R52 and Upper respiratory infection, acute J06.[address] [address] September, [facility] [address] [address] September, Left wrist injury, initial encounter S69.92XA and Contusion of wrist, left S60.212A [address] [address] Aug, Depressive disorder, not elsewhere classified F32.9 [facility] [address] [place] [address] Jul, Seasonal allergic rhinitis, unspecified allergic rhinitis trigger J30.2 ; Rheumatoid arthritis flare M06.9 and Essential hypertension I10 [place] [address] [address] Jul, [place] [address] [address] Jul, Essential hypertension I10 [place] [id number] [place] [address]- [address] Jul, Essential hypertension I10 ; Other chronic pain G89.29 ; Rheumatoid arthritis involving multiple sites, unspecified rheumatoid factor presence M06.9 and Insomnia due to medical condition G47.01 [place] [address] [address]99 Jul, [place] [address] [address] Jul, [place] [address] [address] Jun, [address] [address] Jun, 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 ; Essential hypertension I10 ; Chronic obstructive pulmonary disease, unspecified COPD type J44.9 ; Panic attacks F41.0 ; Hot flashes R23.2 ; Rheumatoid arthritis involving multiple sites, unspecified rheumatoid factor presence M06.9 ; Pain in thoracic spine M54.6 ; Other chronic pain G89.29 and Arthralgia, unspecified joint M25.50 [facility] [address] [place] [id number] [place] [address] May, Rheumatoid arthritis flare M06.9 [facility] [address] [place] [id number] [place] [address] May, Left lower quadrant pain R10.32 ; Abdominal pain in female R10.9 ; Constipation, unspecified constipation type K59.00 and Gastroesophageal reflux disease without esophagitis K21.9 [facility] [address] [address] Mar, Herpes genitalis in women A60.09 ; Bilateral impacted cerumen H61.23 and Injury of right ring finger, initial encounter S69.91XA [address] [address] Mar, [facility] [id number] [place] [address] 6[address] Nov, Essential hypertension I10 ; Chronic hepatitis C B18.2 ; Arthralgia, unspecified joint M25.50 ; Chronic obstructive pulmonary disease, unspecified COPD type J44.9 ; Methamphetamine abuse F15.10 ; Simple chronic bronchitis J41.0 ; Hemorrhoids, unspecified hemorrhoid type K64.9 and Anxiety F41.9 [facility] [id number] [place] [address]68 Nov, [facility] [id number] [place] [address] 13360- 0390 Feb, Elevated glucose R73.09 [id number] [place] [address]- 40[address] Feb, Elevated glucose R73.09 [id number] [place] [address] 00393- 3716 Oct, [facility] [id number] [place] [address] 83207- 0822 Oct, [id number] [place] [address] 6[address]- 67[address] Oct, Essential hypertension, benign 401.1 ; Chronic hepatitis C without mention of hepatic coma 070.54 ; Anxiety state, unspecified 300.00 ; Genital herpes 054.10 ; Methamphetamine abuse 305.70 and Excessive cerumen in both ear canals 380.4 [facility] [id number] [place] [address] 40026- 7208 Oct, [facility] [id number] [place] [address] 94838- 3905 Aug, [place] [id number] [place] [address]80- 5017 Aug, [facility] [id number] [place] [address] 92323- 1290 Jul, [place] [address] [place] [address] Jul, [facility] [place] [facility] [address] [id number] [place] [address]- 3965 Jun, [facility] [place] [facility] [address] [id number] [place] [address]- 5266 Jun, [facility] [place] [facility] [address] [id number] [place] [address]- 3756 Jun, [facility] [place] [facility] [address] [id number] [place] [address]- 0740 Jun, [facility] [place] [facility] [address] [id number] [place] [address]- 3729 May, [facility] [place] [facility] [address] [id number] [place] [address]- 7088 May, [facility] [place] [facility] [address] [id number] [place] [address]- 0293 May, [facility] [place] [facility] [address] [id number] [place] [address]- 0889 May, [facility] [place] [facility] [address] [id number] [place] [address]- 8983 May, [facility] [place] [facility] [address] [facility] [id number] [place] [address]- 5347 May, [facility] [place] [facility] [address] [id number] [place] [address]- 2360 May, [facility] [place] [facility] [address] [id number] [place] [address]- 2216 Apr, [facility] [place] [facility] [address] [id number] [place] [address]- 8403 Apr, [facility] [place] [facility] [address] [id number] [place] [address]- 1096 Apr, [facility] [place] [facility] [address] [id number] [place] [address]- 1071 Dec, [facility] [place] [facility] [address] [id number] [place] [address]- 2235 Dec, [facility] [place] [facility] [address] [id number] [place] [address]- 6952 Nov, [facility] [place] [facility] [address] [id number] [place] [address]- 8377 Nov, [facility] [place] [facility] [address] [id number] [place] [address]- 9649 Nov, [facility] [place] [facility] [address] [id number] [place] [address]- 5167 Nov, [facility] [place] [facility] [address] [id number] [place] [address]- 7450 Nov, [facility] [place] [facility] [address] [id number] [place] [address]- 9100 Nov, [facility] [place] [facility] [address] [id number] [place] [address]- 7768 Nov, [facility] [place] [facility] [address] [id number] [place] [address]- 8825 Nov, [facility] [place] [facility] [address] [id number] [place] [address]- 8414 Nov, [facility] [place] [facility] [address] [id number] [place] [address]- 3212 Nov, [facility] [place] [facility] [address] [id number] [place] [address]- 3441 Nov, [facility] [place] [facility] [address] [id number] [place] [address]- 9248 Nov, [facility] [place] [facility] [address] [id number] [place] [address]- 0828 Oct, [facility] [place] [facility] [address] [id number] [place] [address]- 5533 Oct, [facility] [place] [facility] [address] [id number] [place] [address]- 8511 September, [facility] [place] [facility] [address] [id number] [place] [address]- 0261 September, [facility] [place] [facility] [address] [id number] [place] [address]- 3485 Aug, [facility] [place] [facility] [address] [id number] [place] [address]- 2313 Aug, [facility] [place] [facility] [address] [id number] [place] [address]- 1709 Aug, [facility] [place] [facility] [address] [id number] [place] [address]- 2330 Aug, [facility] [place] [facility] [address] [id number] [place] [address]- 6798 Aug, [facility] [place] [facility] [address] [id number] [place] [address]- 4358 Aug, [facility] [place] [facility] [address] [id number] [place] [address]- 0423 Aug, [facility] [place] [facility] [address] [id number] [place] [address]- 0644 Aug, [facility] [place] [facility] [address] [id number] [place] [address]- 4733 Aug, [facility] [place] [facility] [address] [id number] [place] [address]- 3849 Aug, [facility] [place] [facility] [address] [id number] [place] [address]- 9167 Aug, [facility] [place] [facility] [address] [id number] [place] [address]- 9870 Jul, [facility] [place] [facility] [address] [id number] [place] [address]- 0646 Jul, [facility] [place] [facility] [address] [id number] [place] [address] Jul, [facility] [place] [facility] [address] [id number] [place] [address]- 5496 05 Jul, 2013 [facility] [place] [facility] [address] [id number] [place] [address]- 7849 Jul, [facility] [place] [facility] [address] [id number] [place] [address]- 0711 Jul, [facility] [place] [facility] [address] [id number] [place] [address]- 6210 Jul, [facility] [place] [facility] [address] [id number] [place] [address]- 6593 24 Jun, 2013 [facility] [place] [facility] [address] [id number] [place] [address]- 0775 Jun, [facility] [place] [facility] [address] [id number] [place] [address]- 2677 Jun, [facility] [place] [facility] [address] [id number] [place] [address]- 3174 Jun, [facility] [place] [facility] [address] [id number] [place] [address]- 7772 Jun, [facility] [place] [facility] [address] [id number] [place] [address]- 0179 Jun, [facility] [place] [facility] [address] [id number] [place] [address]- 6207 Jun, [facility] [place] [facility] [address] [id number] [place] [address]- 5619 Jan, [facility] [place] [facility] [address] [id number] [place] [address]- 7259 Nov, [facility] [place] [facility] [address] [id number] [place] [address]- 3997 Nov, [facility] [place] [facility] [address] [id number] [place] [address]- 9219 Aug, [facility] [place] [facility] [address] [id number] [place] [address]- 7942 Jun, [facility] [address] [id number] [place] [address]- 3496 Jun, [facility] [address] [id number] [place] [address]- 5486 Jun, [facility] [address] [id number] [place] [address]- 9865 May, [facility] [address] [id number] [place] [address]- 6618 May, [facility] [address] [id number] [place] [address]- 1609 May, [facility] [address] [id number] [place] [address]- 0496 May, [facility] [address] [id number] [place] [address]- 2051 Apr, [facility] [address] [id number] [place] [address]- 3019 Apr, [facility] [address] [id number] [place] [address]- 7588 Apr, [facility] [address] [facility] [id number] [place] [address]- 4197 Apr, [facility] [address] [id number] [place] [address]- 5301 Mar, [facility] [address] [id number] [place] [address]- 9681 Feb, [facility] [address] [id number] [place] [address]- 0368 16 Dec, 2010 [facility] [place] [facility] [address] [id number] [place] [address]- 2546 Nov, [facility] [address] [id number] [place] [address]- 2462 15 Jul, 2010 [facility] [id number] Apr, [facility] [address] Apr, [facility] [address] [address]- 7303 Apr, [facility] [address] [address] Mar, [facility] [address] [facility] [id number] 9538 Mar, [facility] [address] [address] Mar, [facility] [address] [address]- 8909 Feb, [facility] [address] [address]- 6390 Feb, [facility] [address] [address]- 7019 Feb, [facility] [address] 5887 Feb, [facility] [id number] [address]- 8046 Dec, [facility] [id number] [address]- 8[address] Oct, [facility] [id number] [address]- 0383 Oct, IMMUNIZATIONS No Known Immunizations SOCIAL HISTORY Never Assessed REASON FOR VISIT 6 wk f/u, pain in both feet and hard time walking, PT has reaccuring dorothy Washburn MA PLAN OF CARE Activity Details Follow Up 3 Weeks Reason: VITAL SIGNS Height 60 in 2017-10-24 Blood pressure systolic 152 mmHg 2017-10-24 Blood pressure diastolic 94 mmHg 2017-10-24 MEDICATIONS Medication Instructions Dosage Frequency Start Date End Date Duration Status Proventil HFA 108 (90 Base) MCG/ACT Inhalation every 4 hrs 2 puffs as needed 4h Nov, Active Omeprazole 40 MG Orally Once a day 1 capsule 24h May, 30 day(s ) Active Atenolol 50 mg Orally Once a day 1 tablet 24h Nov, Active Plaquenil 200 MG Orally Once a day 1 tablet with food or milk 24h Active Lisinopril 40 mg Orally Once a day 1 tablet 24h Nov, Active Hydrochlorothiazide 25 MG Orally Once a day 1 tablet 24h Jul, 30 day(s) Active Acyclovir 400 mg Orally Twice a day 1 tablet 12h Oct, 30 days Active Tramadol HCl 50 MG Orally every 6 hrs 1 tablet as needed 6h Active RESULTS No Results PROCEDURES No Known [...]
--- OUTSIDE RECORDS SUMMARY | 2018-07-14 13:16 | XMS REPORT ---
Author Author JALIL FRYE Organization [facility] Address [address] [place] [address] Care Team Providers Care Furnace Loader Name Role Phone JALIL FRYE Unavailable PROBLEMS Type Condition ICD9-CM Code EXA34-NE Code Onset Dates Condition Status SNOMED Code Problem 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 Active 503360422067934 Problem Rheumatoid arthritis involving multiple sites, unspecified rheumatoid factor presence M06.9 Active 688607860 Problem Panic attacks F41.0 Active 209268494 Problem Other chronic pain G89.29 Active 32061694 Problem Porokeratosis Q82.8 Active 249720098 Problem Gastroesophageal reflux disease without esophagitis K21.9 Active 631527457 Problem Epilepsy, unspecified, not intractable, without status epilepticus G40.909 Active 251164803 Problem Depressive disorder, not elsewhere classified F32.9 Active 51206310 Problem Seasonal allergic rhinitis, unspecified allergic rhinitis trigger J30.2 Active 998369582 Problem Chronic hepatitis C B18.2 Active 386498512 Problem Essential hypertension I10 Active 48548549 Problem 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 Active 72251121 Problem Chronic obstructive pulmonary disease, unspecified COPD type J44.9 Active 53403437 Problem Methamphetamine abuse F15.10 Active 334914013 Problem Anxiety F41.9 Active 55847382 ALLERGIES No Information ENCOUNTERS Encounter Location Date Diagnosis [facility] [id number] [address] Oct, Essential hypertension I10 ; Rheumatoid arthritis involving multiple sites, unspecified rheumatoid factor presence M06.9 and Chronic hepatitis C B18.2 [facility] [id number] [address] Oct, [facility] [id number] [address] Oct, Fissure in skin of foot R23.4 [place] [id number] [place] [address]736- 0393 Oct, Essential hypertension I10 [place] [id number] [place] [address] 28625- 9360 Oct, 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 [place] [address] [address] September, [place] [address] [address] September, Pain in right ankle and joints of right foot M25.571 and Other chronic pain G89.29 [place] [id number] [place] [address]12- 1067 Aug, Essential hypertension I10 ; Rheumatoid arthritis involving multiple sites, unspecified rheumatoid factor presence M06.9 ; Gastroesophageal reflux disease without esophagitis K21.9 ; Anxiety F41.9 ; 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 and Dermatitis L30.9 [place] [id number] [place] [address] 19447- 7662 Aug, Onychomycosis B35.1 ; Peroneal tendinitis, unspecified laterality M76.70 and Porokeratosis Q82.8 [place] [id number] [place] [address] 82808- 3808 Jul, Porokeratosis Q82.8 ; Hyperhidrosis L74.519 and Callus of foot L84 [place] [id number] [place] [address] 46[address]- 7508 Apr, [place] [address] [address] Apr, [place] [id number] [place] [address] 82115- 8592 Mar, Well woman exam (no gynecological exam) Z00.00 ; Plantar wart B07.0 ; Pain of left foot M79.672 ; Pain in right foot M79.671 and Rheumatoid arthritis involving multiple sites, unspecified rheumatoid factor presence M06.9 [place] [address] [address] Nov, Bilateral low back pain, with sciatica presence unspecified M54.5 [place] [address] [address] Oct, Chronic obstructive pulmonary disease, unspecified COPD type J44.9 [place] [address] [address] September, [address] [address] September, Bilateral low back pain, with sciatica presence unspecified M54.5 [facility] [address] [place] [address] September, Body aches R52 and Upper respiratory infection, acute J06.[address] [address] September, [facility] [address] [address] September, Left wrist injury, initial encounter S69.92XA and Contusion of wrist, left S60.212A [address] [address] Aug, Depressive disorder, not elsewhere classified F32.9 [facility] [address] [place] [address] Jul, Seasonal allergic rhinitis, unspecified allergic rhinitis trigger J30.2 ; Rheumatoid arthritis flare M06.9 and Essential hypertension I10 [place] [address] [address] Jul, [place] [address] [address] Jul, Essential hypertension I10 [place] [id number] [place] [address]- 50[address] Jul, Essential hypertension I10 ; Other chronic pain G89.29 ; Rheumatoid arthritis involving multiple sites, unspecified rheumatoid factor presence M06.9 and Insomnia due to medical condition G47.01 [place] [address] [address] 65[address] Jul, [place] [address] [address] 8468 Jul, [place] [address] [address]- 1673 Jun, [address] [address] Jun, 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 ; Essential hypertension I10 ; Chronic obstructive pulmonary disease, unspecified COPD type J44.9 ; Panic attacks F41.0 ; Hot flashes R23.2 ; Rheumatoid arthritis involving multiple sites, unspecified rheumatoid factor presence M06.9 ; Pain in thoracic spine M54.6 ; Other chronic pain G89.29 and Arthralgia, unspecified joint M25.50 [facility] [address] [place] [id number] [place] [address] May, Rheumatoid arthritis flare M06.9 [facility] [address] [place] [id number] [place] [address] May, Left lower quadrant pain R10.32 ; Abdominal pain in female R10.9 ; Constipation, unspecified constipation type K59.00 and Gastroesophageal reflux disease without esophagitis K21.9 [facility] [address] [address] Mar, Herpes genitalis in women A60.09 ; Bilateral impacted cerumen H61.23 and Injury of right ring finger, initial encounter S69.91XA [address] [address] Mar, [facility] [id number] [place] [address]88- [address] Nov, Essential hypertension I10 ; Chronic hepatitis C B18.2 ; Arthralgia, unspecified joint M25.50 ; Chronic obstructive pulmonary disease, unspecified COPD type J44.9 ; Methamphetamine abuse F15.10 ; Simple chronic bronchitis J41.0 ; Hemorrhoids, unspecified hemorrhoid type K64.9 and Anxiety F41.9 [facility] [id number] [place] [address] Nov, [facility] [id number] [place] [address] 88343- 7346 Feb, Elevated glucose R73.09 [address] [id number] [place] [address]89- 7756 Feb, Elevated glucose R73.09 [address] [id number] [place] [address] 39079- 55[address] Oct, [facility] [id number] [place] [address] 42068- [address] Oct, [place] [id number] [place] [address] 97021- 7777 Oct, Essential hypertension, benign 401.1 ; Chronic hepatitis C without mention of hepatic coma 070.54 ; Anxiety state, unspecified 300.00 ; Genital herpes 054.10 ; Methamphetamine abuse 305.70 and Excessive cerumen in both ear canals 380.4 [facility] [id number] [place] [address] 74707- 0880 Oct, [facility] [id number] [place] [address] 29811- 6664 Aug, [place] [id number] [place] [address] 76574- 7497 Aug, [facility] [id number] [place] [address] 29853- 6295 Jul, [place] [address] [place] [address] Jul, [facility] [place] [facility] [address] [id number] [place] [address]- 69[address] Jun, [facility] [place] [facility] [address] [id number] [place] [address]- 0556 Jun, [facility] [place] [facility] [address] [id number] [place] [address]- 4006 Jun, [facility] [place] [facility] [address] [id number] [place] [address]- 1401 Jun, [facility] [place] [facility] [address] [id number] [place] [address]- 7056 May, [facility] [place] [facility] [address] [id number] [place] [address]- 2555 May, [facility] [place] [facility] [address] [id number] [place] [address]- 9122 May, [facility] [place] [facility] [address] [id number] [place] [address]- 6925 May, [facility] [place] [facility] [address] [id number] [place] [address]- 9845 May, [facility] [place] [facility] [address] [facility] [id number] [place] [address]- 2569 May, [facility] [place] [facility] [address] [id number] [place] [address]- 7827 May, [facility] [place] [facility] [address] [id number] [place] [address]- 0184 Apr, [facility] [place] [facility] [address] [id number] [place] [address]- 6735 Apr, [facility] [place] [facility] [address] [id number] [place] [address]- 1218 Apr, [facility] [place] [facility] [address] [id number] [place] [address]- 5096 Dec, [facility] [place] [facility] [address] [id number] [place] [address]- 2824 Dec, [facility] [place] [facility] [address] [id number] [place] [address]- 8262 Nov, [facility] [place] [facility] [address] [id number] [place] [address]- 3879 Nov, [facility] [place] [facility] [address] [id number] [place] [address]- 4665 Nov, [facility] [place] [facility] [address] [id number] [place] [address]- 4076 Nov, [facility] [place] [facility] [address] [id number] [place] [address]- 6711 Nov, [facility] [place] [facility] [address] [id number] [place] [address]- 6939 Nov, [facility] [place] [facility] [address] [id number] [place] [address]- 9580 Nov, [facility] [place] [facility] [address] [id number] [place] [address]- 7499 Nov, [facility] [place] [facility] [address] [id number] [place] [address]- 3243 Nov, [facility] [place] [facility] [address] [id number] [place] [address]- 4827 Nov, [facility] [place] [facility] [address] [id number] [place] [address]- 8325 Nov, [facility] [place] [facility] [address] [id number] [place] [address]- 2287 Nov, [facility] [place] [facility] [address] [id number] [place] [address]- 1946 Oct, [facility] [place] [facility] [address] [id number] [place] [address]- 3250 Oct, [facility] [place] [facility] [address] [id number] [place] [address]- 3317 September, [facility] [place] [facility] [address] [id number] [place] [address]- 7656 September, [facility] [place] [facility] [address] [id number] [place] [address]- 7948 Aug, [facility] [place] [facility] [address] [id number] [place] [address]- 2714 Aug, [facility] [place] [facility] [address] [id number] [place] [address]- 8842 Aug, [facility] [place] [facility] [address] [id number] [place] [address]- 7020 Aug, [facility] [place] [facility] [address] [id number] [place] [address]- 2581 Aug, [facility] [place] [facility] [address] [id number] [place] [address]- 2121 Aug, [facility] [place] [facility] [address] [id number] [place] [address]- 0045 Aug, [facility] [place] [facility] [address] [id number] [place] [address]- 3219 Aug, [facility] [place] [facility] [address] [id number] [place] [address]- 4970 Aug, [facility] [place] [facility] [address] [id number] [place] [address]- 1499 Aug, [facility] [place] [facility] [address] [id number] [place] [address]- 4881 Aug, [facility] [place] [facility] [address] [id number] [place] [address]- 0181 Jul, [facility] [place] [facility] [address] [id number] [place] [address]- 7152 Jul, [facility] [place] [facility] [address] [id number] [place] [address] Jul, [facility] [place] [facility] [address] [id number] [place] [address]- 7789 05 Jul, 2013 [facility] [place] [facility] [address] [id number] [place] [address]- 9838 Jul, [facility] [place] [facility] [address] [id number] [place] [address]- 7541 Jul, [facility] [place] [facility] [address] [id number] [place] [address]- 3684 Jul, [facility] [place] [facility] [address] [id number] [place] [address]- 4096 24 Jun, 2013 [facility] [place] [facility] [address] [id number] [place] [address]- 7922 Jun, [facility] [place] [facility] [address] [id number] [place] [address]- 1927 Jun, [facility] [place] [facility] [address] [id number] [place] [address]- 3109 Jun, [facility] [place] [facility] [address] [id number] [place] [address]- 2371 Jun, [facility] [place] [facility] [address] [id number] [place] [address]- 1029 Jun, [facility] [place] [facility] [address] [id number] [place] [address]- 6047 Jun, [facility] [place] [facility] [address] [id number] [place] [address]- 6570 Jan, [facility] [place] [facility] [address] [id number] [place] [address]- 6993 Nov, [facility] [place] [facility] [address] [id number] [place] [address]- 4785 Nov, [facility] [place] [facility] [address] [id number] [place] [address]- 2128 Aug, [facility] [place] [facility] [address] [id number] [place] [address]- 1585 Jun, [facility] [address] [id number] [place] [address]- 9806 Jun, [facility] [address] [id number] [place] [address]- 5606 Jun, [facility] [address] [id number] [place] [address]- 9531 May, [facility] [address] [id number] [place] [address]- 2664 May, [facility] [address] [id number] [place] [address]- 6853 May, [facility] [address] [id number] [place] [address]- [address] May, [facility] [address] [id number] [place] [address]- [address] Apr, [facility] [address] [id number] [place] [address]- 5812 Apr, [facility] [address] [id number] [place] [address]- [address] Apr, [facility] [address] [facility] [id number] [place] [address]- [address]384 Apr, [facility] [address] [id number] [place] [address]- 100[address] Mar, [facility] [address] [id number] [place] [address]- 4962 Feb, [facility] [address] [id number] [place] [address]- 5444 16 Dec, 2010 [facility] [place] [facility] [address] [id number] [place] [address]- [address]46 Nov, [facility] [address] [id number] [place] [address]- 0618 15 Jul, 2010 [facility] [address] [address]- 3888 Apr, [facility] [address] [address]- 2506 Apr, [facility] [address] [address]- 8116 Apr, [facility] [address] [address]- 6396 Mar, [facility] [address] [facility] [id number] [address]- 6540 Mar, [facility] [address] [address]- 2298 Mar, [facility] [address] Feb, [facility] [address] [address]- 5958 Feb, [facility] [address] [address]- 1994 Feb, [facility] [address] [address]- 3606 Feb, [facility] [address] [address]- 5334 Dec, [facility] [address] [address]- 5718 Oct, [facility] [id number] [address]- 6680 Oct, IMMUNIZATIONS No Known Immunizations SOCIAL HISTORY Never Assessed REASON FOR VISIT PLAN OF CARE VITAL SIGNS MEDICATIONS Medication Instructions Dosage Frequency Start Date End Date Duration Status Atenolol 50 mg Orally Once a day 1 tablet 24h Nov, Active RESULTS No Results PROCEDURES No [...]
--- OUTSIDE RECORDS SUMMARY | 2018-07-14 13:16 | XMS REPORT ---
Author Author JALIL FRYE Organization [facility] Address [address] [place] [address] Care Team Providers Care Dba Manager Name Role Phone JALIL FRYE Unavailable PROBLEMS Type Condition ICD9-CM Code BKD57-XL Code Onset Dates Condition Status SNOMED Code Problem 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 Active 560780182348375 Problem Rheumatoid arthritis involving multiple sites, unspecified rheumatoid factor presence M06.9 Active 002368817 Problem Panic attacks F41.0 Active 789426550 Problem Other chronic pain G89.29 Active 35464290 Problem Porokeratosis Q82.8 Active 920217832 Problem Gastroesophageal reflux disease without esophagitis K21.9 Active 745494756 Problem Epilepsy, unspecified, not intractable, without status epilepticus G40.909 Active 746173934 Problem Depressive disorder, not elsewhere classified F32.9 Active 64034132 Problem Seasonal allergic rhinitis, unspecified allergic rhinitis trigger J30.2 Active 260488988 Problem Chronic hepatitis C B18.2 Active 394700730 Problem Essential hypertension I10 Active 91965864 Problem 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 Active 51894915 Problem Chronic obstructive pulmonary disease, unspecified COPD type J44.9 Active 22308520 Problem Methamphetamine abuse F15.10 Active 094824908 Problem Anxiety F41.9 Active 41890665 ALLERGIES No Information ENCOUNTERS Encounter Location Date Diagnosis [facility] [id number] [address] Oct, Essential hypertension I10 ; Rheumatoid arthritis involving multiple sites, unspecified rheumatoid factor presence M06.9 and Chronic hepatitis C B18.2 [facility] [id number] [address] Oct, [facility] [id number] [address] Oct, Fissure in skin of foot R23.4 [address] [id number] [place] [address]- [address]63 Oct, Essential hypertension I10 [place] [id number] [place] [address]- 6[address] Oct, 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 [place] [address] [address] September, [place] [address] [address] September, Pain in right ankle and joints of right foot M25.571 and Other chronic pain G89.29 [place] [id number] [place] [address]- 7651 Aug, Essential hypertension I10 ; Rheumatoid arthritis involving multiple sites, unspecified rheumatoid factor presence M06.9 ; Gastroesophageal reflux disease without esophagitis K21.9 ; Anxiety F41.9 ; 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 and Dermatitis L30.9 [place] [id number] [place] [address]- [address] Aug, Onychomycosis B35.1 ; Peroneal tendinitis, unspecified laterality M76.70 and Porokeratosis Q82.8 [place] [id number] [place] [address]- 9505 Jul, Porokeratosis Q82.8 ; Hyperhidrosis L74.519 and Callus of foot L84 [place] [id number] [place] [address]- 70[address] Apr, [place] [address] [address] Apr, [place] [id number] [place] [address]- 13[address] Mar, Well woman exam (no gynecological exam) Z00.00 ; Plantar wart B07.0 ; Pain of left foot M79.672 ; Pain in right foot M79.671 and Rheumatoid arthritis involving multiple sites, unspecified rheumatoid factor presence M06.9 [place] [address] [address] Nov, Bilateral low back pain, with sciatica presence unspecified M54.5 [place] [address] [address] Oct, Chronic obstructive pulmonary disease, unspecified COPD type J44.9 [place] [address] [address] September, [address] [address] September, Bilateral low back pain, with sciatica presence unspecified M54.5 [facility] [address] [place] [address] September, Body aches R52 and Upper respiratory infection, acute J06.[address] [address] September, [facility] [address] [address] September, Left wrist injury, initial encounter S69.92XA and Contusion of wrist, left S60.212A [address] [address] Aug, Depressive disorder, not elsewhere classified F32.9 [facility] [address] [place] [address] Jul, Seasonal allergic rhinitis, unspecified allergic rhinitis trigger J30.2 ; Rheumatoid arthritis flare M06.9 and Essential hypertension I10 [place] [address] [address] Jul, [place] [address] [address] Jul, Essential hypertension I10 [place] [id number] [place] [address]- 7[address] Jul, Essential hypertension I10 ; Other chronic pain G89.29 ; Rheumatoid arthritis involving multiple sites, unspecified rheumatoid factor presence M06.9 and Insomnia due to medical condition G47.01 [place] [address] [address] Jul, [place] [address] [address] Jul, [place] [address] [address] Jun, [address] [address] Jun, 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 ; Essential hypertension I10 ; Chronic obstructive pulmonary disease, unspecified COPD type J44.9 ; Panic attacks F41.0 ; Hot flashes R23.2 ; Rheumatoid arthritis involving multiple sites, unspecified rheumatoid factor presence M06.9 ; Pain in thoracic spine M54.6 ; Other chronic pain G89.29 and Arthralgia, unspecified joint M25.50 [facility] [address] [place], [place] [id number] [place] [address] May, Rheumatoid arthritis flare M06.9 [facility] [address] [place], [place] [id number] [place] [address] May, Left lower quadrant pain R10.32 ; Abdominal pain in female R10.9 ; Constipation, unspecified constipation type K59.00 and Gastroesophageal reflux disease without esophagitis K21.9 [facility] [address] [address] Mar, Herpes genitalis in women A60.09 ; Bilateral impacted cerumen H61.23 and Injury of right ring finger, initial encounter S69.91XA [address] [address] Mar, [facility] [id number] [place] [address]- 9[address] Nov, Essential hypertension I10 ; Chronic hepatitis C B18.2 ; Arthralgia, unspecified joint M25.50 ; Chronic obstructive pulmonary disease, unspecified COPD type J44.9 ; Methamphetamine abuse F15.10 ; Simple chronic bronchitis J41.0 ; Hemorrhoids, unspecified hemorrhoid type K64.9 and Anxiety F41.9 [facility] [id number] [place] [address] Nov, [facility] [id number] [place] [address]67- 87[address] Feb, Elevated glucose R73.09 [address] [id number] [place] [address]- [address] Feb, Elevated glucose R73.09 [address] [id number] [place] [address] 85843- 8780 Oct, [facility] [id number] [place] [address]- 9816 Oct, [address] [id number] [place] [address]- 1268 Oct, Essential hypertension, benign 401.1 ; Chronic hepatitis C without mention of hepatic coma 070.54 ; Anxiety state, unspecified 300.00 ; Genital herpes 054.10 ; Methamphetamine abuse 305.70 and Excessive cerumen in both ear canals 380.4 [facility] [id number] [place] [address]- 1283 Oct, [facility] [id number] [place] [address]69- 7400 Aug, [place] [id number] [place] [address]- 7[address] Aug, [facility] [id number] [place] [address]24- 37[address] Jul, [place] [address] [address] Jul, [facility] [place] [facility] [address] [id number] [place] [address]- [address] Jun, [facility] [place] [facility] [address] [id number] [place] [address]- 3216 Jun, [facility] [place] [facility] [address] [id number] [place] [address]- 4316 Jun, [facility] [place] [facility] [address] [id number] [place] [address]- 0778 Jun, [facility] [place] [facility] [address] [id number] [place] [address]- 1879 May, [facility] [place] [facility] [address] [id number] [place] [address]- 3[address] May, [facility] [place] [facility] [address] [id number] [place] [address]- 0836 May, [facility] [place] [facility] [address] [id number] [place] [address]- 8506 May, [facility] [place] [facility] [address] [id number] [place] [address]- 3788 May, [facility] [place] [facility] [address] [facility] [id number] [place] [address]- 3846 May, [facility] [place] [facility] [address] [id number] [place] [address]- 0070 May, [facility] [place] [facility] [address] [id number] [place] [address]- 1421 Apr, [facility] [place] [facility] [address] [id number] [place] [address]- 2002 Apr, [facility] [place] [facility] [address] [id number] [place] [address]- 8049 Apr, [facility] [place] [facility] [address] [id number] [place] [address]- 1475 Dec, [facility] [place] [facility] [address] [id number] [place] [address]- 8892 Dec, [facility] [place] [facility] [address] [id number] [place] [address]- 9405 Nov, [facility] [place] [facility] [address] [id number] [place] [address]- 2233 Nov, [facility] [place] [facility] [address] [id number] [place] [address]- 2348 Nov, [facility] [place] [facility] [address] [id number] [place] [address]- 6155 Nov, [facility] [place] [facility] [address] [id number] [place] [address]- 6880 Nov, [facility] [place] [facility] [address] [id number] [place] [address]- 9050 Nov, [facility] [place] [facility] [address] [id number] [place] [address]- 4729 Nov, [facility] [place] [facility] [address] [id number] [place] [address]- 8762 Nov, [facility] [place] [facility] [address] [id number] [place] [address]- 7454 Nov, [facility] [place] [facility] [address] [id number] [place] [address]- 8561 Nov, [facility] [place] [facility] [address] [id number] [place] [address]- 0684 Nov, [facility] [place] [facility] [address] [id number] [place] [address]- 4474 Nov, [facility] [place] [facility] [address] [id number] [place] [address]- 8501 Oct, [facility] [place] [facility] [address] [id number] [place] [address]- 5398 Oct, [facility] [place] [facility] [address] [id number] [place] [address]- 7822 September, [facility] [place] [facility] [address] [id number] [place] [address]- 5891 September, [facility] [place] [facility] [address] [id number] [place] [address]- 4955 Aug, [facility] [place] [facility] [address] [id number] [place] [address]- 9601 Aug, [facility] [place] [facility] [address] [id number] [place] [address]- 9708 Aug, [facility] [place] [facility] [address] [id number] [place] [address]- 0910 Aug, [facility] [place] [facility] [address] [id number] [place] [address]- 6353 Aug, [facility] [place] [facility] [address] [id number] [place] [address]- 5523 Aug, [facility] [place] [facility] [address] [id number] [place] [address]- 5870 Aug, [facility] [place] [facility] [address] [id number] [place] [address]- 2063 Aug, [facility] [place] [facility] [address] [id number] [place] [address]- 0882 Aug, [facility] [place] [facility] [address] [id number] [place] [address]- 0644 Aug, [facility] [place] [facility] [address] [id number] [place] [address]- 2649 Aug, [facility] [place] [facility] [address] [id number] [place] [address]- 6039 Jul, [facility] [place] [facility] [address] [id number] [place] [address]- 1787 Jul, [facility] [place] [facility] [address] [id number] [place] [address] Jul, [facility] [place] [facility] [address] [id number] [place] [address]- 8558 05 Jul, 2013 [facility] [place] [facility] [address] [id number] [place] [address]- 6731 Jul, [facility] [place] [facility] [address] [id number] [place] [address]- 5640 Jul, [facility] [place] [facility] [address] [id number] [place] [address]- 6186 Jul, [facility] [place] [facility] [address] [id number] [place] [address]- 3592 24 Jun, 2013 [facility] [place] [facility] [address] [id number] [place] [address]- 4309 Jun, [facility] [place] [facility] [address] [id number] [place] [address]- 8836 Jun, [facility] [place] [facility] [address] [id number] [place] [address]- 4019 Jun, [facility] [place] [facility] [address] [id number] [place] [address]- 7628 Jun, [facility] [place] [facility] [address] [id number] [place] [address]- 3182 Jun, [facility] [place] [facility] [address] [id number] [place] [address]- 6688 Jun, [facility] [place] [facility] [address] [id number] [place] [address]- 1968 Jan, [facility] [place] [facility] [address] [id number] [place] [address]- 1101 Nov, [facility] [place] [facility] [address] [id number] [place] [address]- 4472 Nov, [facility] [place] [facility] [address] [id number] [place] [address]- 0653 Aug, [facility] [place] [facility] [address] [id number] [place] [address]- 1177 Jun, [facility] [address] [id number] [place] [address]- 9406 Jun, [facility] [address] [id number] [place] [address]- 6056 Jun, [facility] [address] [id number] [place] [address]- 1125 May, [facility] [address] [id number] [place] [address]- 3183 May, [facility] [address] [id number] [place] [address]- 2191 May, [facility] [address] [id number] [place] [address]- 7586 May, [facility] [address] [id number] [place] [address]- 6425 Apr, [facility] [address] [id number] [place] [address]- 7508 Apr, [facility] [address] [id number] [place] [address]- 6752 Apr, [facility] [address] [facility] [id number] [place] [address]- 0031 Apr, [facility] [address] [id number] [place] [address]- 2625 Mar, [facility] [address] [id number] [place] [address]- 8450 Feb, [facility] [address] [id number] [place] [address]- 6580 16 Dec, 2010 [facility] [place] [facility] [address] [id number] [place] [address]- 2546 Nov, [facility] [address] [id number] [place] [address]- 4873 15 Jul, 2010 [facility] [address] Apr, [facility] [address] [address] Apr, [facility] [address], [place] [address]- 2189 Apr, [facility] [address] 1469 Mar, [facility] [address] [facility] [id number] [address] Mar, [facility] [address]- [address] Mar, [facility] [address] [place] [address]- 7327 Feb, [facility] [address] [place] [address]- 8252 Feb, [facility] [address] [place] [address]- 6857 Feb, [facility] [id number] [address]- 7431 Feb, [facility] [id number] [address]- 1240 Dec, [facility] [id number] [address]- 1177 Oct, [facility] [id number] [address]- 1205 Oct, IMMUNIZATIONS No Known Immunizations SOCIAL HISTORY Never Assessed REASON FOR VISIT LVM- Unable to make contact PLAN OF CARE VITAL SIGNS MEDICATIONS Unknown [...]
--- OUTSIDE RECORDS SUMMARY | 2018-07-14 13:16 | XMS REPORT ---
Author Author JALIL FRYE Organization [facility] Address [address] [place] [address] Care Team Providers Care Medication Reconciliation Technician Name Role Phone JALIL FRYE Unavailable PROBLEMS Type Condition ICD9-CM Code VGF69-MB Code Onset Dates Condition Status SNOMED Code Problem 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 Active 705175755223975 Problem Rheumatoid arthritis involving multiple sites, unspecified rheumatoid factor presence M06.9 Active 218778608 Problem Panic attacks F41.0 Active 476787982 Problem Other chronic pain G89.29 Active 82901951 Problem Porokeratosis Q82.8 Active 686697867 Problem Gastroesophageal reflux disease without esophagitis K21.9 Active 195390056 Problem Epilepsy, unspecified, not intractable, without status epilepticus G40.909 Active 144847673 Problem Depressive disorder, not elsewhere classified F32.9 Active 47903815 Problem Seasonal allergic rhinitis, unspecified allergic rhinitis trigger J30.2 Active 054317755 Problem Chronic hepatitis C B18.2 Active 800211232 Problem Essential hypertension I10 Active 12117801 Problem 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 Active 53536850 Problem Chronic obstructive pulmonary disease, unspecified COPD type J44.9 Active 87952017 Problem Methamphetamine abuse F15.10 Active 117252458 Problem Anxiety F41.9 Active 03835244 ALLERGIES No Information ENCOUNTERS Encounter Location Date Diagnosis [facility] [id number] [address] Oct, Essential hypertension I10 ; Rheumatoid arthritis involving multiple sites, unspecified rheumatoid factor presence M06.9 and Chronic hepatitis C B18.2 [facility] [id number] [address] Oct, [facility] [id number] [address] Oct, Fissure in skin of foot R23.4 [id number] [place] [address]- 1326 Oct, Essential hypertension I10 [address] [id number] [place] [address] 46607- 9090 Oct, 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 [address] [place] [address] [address] September, [address] [address] [address] September, Pain in right ankle and joints of right foot M25.571 and Other chronic pain G89.29 [address] [id number] [place] [address]- 1419 Aug, Essential hypertension I10 ; Rheumatoid arthritis involving multiple sites, unspecified rheumatoid factor presence M06.9 ; Gastroesophageal reflux disease without esophagitis K21.9 ; Anxiety F41.9 ; 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 and Dermatitis L30.9 [place] [id number] [place] [address]- 6788 Aug, Onychomycosis B35.1 ; Peroneal tendinitis, unspecified laterality M76.70 and Porokeratosis Q82.8 [place] [id number] [place] [address]167- 2755 Jul, Porokeratosis Q82.8 ; Hyperhidrosis L74.519 and Callus of foot L84 [place] [id number] [place] [address]- 3874 Apr, [address] [address] [address] Apr, [place] [id number] [place] [address] 62438- 8968 Mar, Well woman exam (no gynecological exam) Z00.00 ; Plantar wart B07.0 ; Pain of left foot M79.672 ; Pain in right foot M79.671 and Rheumatoid arthritis involving multiple sites, unspecified rheumatoid factor presence M06.9 [address] [address] [address] Nov, Bilateral low back pain, with sciatica presence unspecified M54.5 [address] [address] [address] Oct, Chronic obstructive pulmonary disease, unspecified COPD type J44.9 [address] [place] [address] [address] September, [address] [address] September, Bilateral low back pain, with sciatica presence unspecified M54.5 [facility] [address] [place] [address] September, Body aches R52 and Upper respiratory infection, acute J06.[address] [address] September, [facility] [address] [address] September, Left wrist injury, initial encounter S69.92XA and Contusion of wrist, left S60.212A [address] [address] Aug, Depressive disorder, not elsewhere classified F32.9 [facility] [address] [place] [address] Jul, Seasonal allergic rhinitis, unspecified allergic rhinitis trigger J30.2 ; Rheumatoid arthritis flare M06.9 and Essential hypertension I10 [address] [address] Jul, [address] [address] [address] Jul, Essential hypertension I10 [address] [id number] [place] [address]34- 7[address] Jul, Essential hypertension I10 ; Other chronic pain G89.29 ; Rheumatoid arthritis involving multiple sites, unspecified rheumatoid factor presence M06.9 and Insomnia due to medical condition G47.01 [address] [address] Jul, [address] [place] [address] [address] Jul, [address] [address] [address] Jun, [address] [address] Jun, 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 ; Essential hypertension I10 ; Chronic obstructive pulmonary disease, unspecified COPD type J44.9 ; Panic attacks F41.0 ; Hot flashes R23.2 ; Rheumatoid arthritis involving multiple sites, unspecified rheumatoid factor presence M06.9 ; Pain in thoracic spine M54.6 ; Other chronic pain G89.29 and Arthralgia, unspecified joint M25.50 [facility] [address] [place] [id number] [place] [address] May, Rheumatoid arthritis flare M06.9 [facility] [address] [place] [id number] [place] [address] May, Left lower quadrant pain R10.32 ; Abdominal pain in female R10.9 ; Constipation, unspecified constipation type K59.00 and Gastroesophageal reflux disease without esophagitis K21.9 [facility] [address] [address] Mar, Herpes genitalis in women A60.09 ; Bilateral impacted cerumen H61.23 and Injury of right ring finger, initial encounter S69.91XA [address] [address] Mar, [facility] [id number] [place] [address]- 69[address] Nov, Essential hypertension I10 ; Chronic hepatitis C B18.2 ; Arthralgia, unspecified joint M25.50 ; Chronic obstructive pulmonary disease, unspecified COPD type J44.9 ; Methamphetamine abuse F15.10 ; Simple chronic bronchitis J41.0 ; Hemorrhoids, unspecified hemorrhoid type K64.9 and Anxiety F41.9 [facility] [id number] [place] [address] Nov, [facility] [id number] [place] [address] 10158- 5815 Feb, Elevated glucose R73.09 [id number] [place] [address] 12151- 6410 Feb, Elevated glucose R73.09 [id number] [place] [address] 18275- 5410 Oct, [facility] [id number] [place] [address] 24769- 3198 Oct, [id number] [place] [address] 61535- 08[address] Oct, Essential hypertension, benign 401.1 ; Chronic hepatitis C without mention of hepatic coma 070.54 ; Anxiety state, unspecified 300.00 ; Genital herpes 054.10 ; Methamphetamine abuse 305.70 and Excessive cerumen in both ear canals 380.4 [facility] [id number] [place] [address] 83849- 3510 Oct, [facility] [id number] [place] [address]16- 4771 Aug, [place] [id number] [place] [address] 24006- 2096 Aug, [facility] [id number] [place] [address] 95899- 0153 Jul, [place] [address] [address] Jul, [facility] [place] [facility] [address] [id number] [place] [address]- 4[address] Jun, [facility] [place] [facility] [address] [id number] [place] [address]- 3846 Jun, [facility] [place] [facility] [address] [id number] [place] [address]- 2826 Jun, [facility] [place] [facility] [address] [id number] [place] [address]- 0466 Jun, [facility] [place] [facility] [address] [id number] [place] [address]- 2597 May, [facility] [place] [facility] [address] [id number] [place] [address]- 8588 May, [facility] [place] [facility] [address] [id number] [place] [address]- 6596 May, [facility] [place] [facility] [address] [id number] [place] [address]- 5469 May, [facility] [place] [facility] [address] [id number] [place] [address]- 9244 May, [facility] [place] [facility] [address] [facility] [id number] [place] [address]- 6999 May, [facility] [place] [facility] [address] [id number] [place] [address]- 2540 May, [facility] [place] [facility] [address] [id number] [place] [address]- 4585 Apr, [facility] [place] [facility] [address] [id number] [place] [address]- 8093 Apr, [facility] [place] [facility] [address] [id number] [place] [address]- 0112 Apr, [facility] [place] [facility] [address] [id number] [place] [address]- 3083 Dec, [facility] [place] [facility] [address] [id number] [place] [address]- 2537 Dec, [facility] [place] [facility] [address] [id number] [place] [address]- 2559 Nov, [facility] [place] [facility] [address] [id number] [place] [address]- 4616 Nov, [facility] [place] [facility] [address] [id number] [place] [address]- 1666 Nov, [facility] [place] [facility] [address] [id number] [place] [address]- 3369 Nov, [facility] [place] [facility] [address] [id number] [place] [address]- 3083 Nov, [facility] [place] [facility] [address] [id number] [place] [address]- 9374 Nov, [facility] [place] [facility] [address] [id number] [place] [address]- 5590 Nov, [facility] [place] [facility] [address] [id number] [place] [address]- 7971 Nov, [facility] [place] [facility] [address] [id number] [place] [address]- 3918 Nov, [facility] [place] [facility] [address] [id number] [place] [address]- 5833 Nov, [facility] [place] [facility] [address] [id number] [place] [address]- 9407 Nov, [facility] [place] [facility] [address] [id number] [place] [address]- 2685 Nov, [facility] [place] [facility] [address] [id number] [place] [address]- 2004 Oct, [facility] [place] [facility] [address] [id number] [place] [address]- 5149 Oct, [facility] [place] [facility] [address] [id number] [place] [address]- 8446 September, [facility] [place] [facility] [address] [id number] [place] [address]- 0259 September, [facility] [place] [facility] [address] [id number] [place] [address]- 0600 Aug, [facility] [place] [facility] [address] [id number] [place] [address]- 4771 Aug, [facility] [place] [facility] [address] [id number] [place] [address]- 6647 Aug, [facility] [place] [facility] [address] [id number] [place] [address]- 4674 Aug, [facility] [place] [facility] [address] [id number] [place] [address]- 3099 Aug, [facility] [place] [facility] [address] [id number] [place] [address]- 9835 Aug, [facility] [place] [facility] [address] [id number] [place] [address]- 7894 Aug, [facility] [place] [facility] [address] [id number] [place] [address]- 9814 Aug, [facility] [place] [facility] [address] [id number] [place] [address]- 8756 Aug, [facility] [place] [facility] [address] [id number] [place] [address]- 9132 Aug, [facility] [place] [facility] [address] [id number] [place] [address]- 9523 Aug, [facility] [place] [facility] [address] [id number] [place] [address]- 5762 Jul, [facility] [place] [facility] [address] [id number] [place] [address]- 2817 Jul, [facility] [place] [facility] [address] [id number] [place] [address] Jul, [facility] [place] [facility] [address] [id number] [place] [address]- 3608 05 Jul, 2013 [facility] [place] [facility] [address] [id number] [place] [address]- 6307 Jul, [facility] [place] [facility] [address] [id number] [place] [address]- 6424 Jul, [facility] [place] [facility] [address] [id number] [place] [address]- 2355 Jul, [facility] [place] [facility] [address] [id number] [place] [address]- 6453 24 Jun, 2013 [facility] [place] [facility] [address] [id number] [place] [address]- 1602 Jun, [facility] [place] [facility] [address] [id number] [place] [address]- 0855 Jun, [facility] [place] [facility] [address] [id number] [place] [address]- 3771 Jun, [facility] [place] [facility] [address] [id number] [place] [address]- 4399 Jun, [facility] [place] [facility] [address] [id number] [place] [address]- 6599 Jun, [facility] [place] [facility] [address] [id number] [place] [address]- 1353 Jun, [facility] [place] [facility] [address] [id number] [place] [address]- 8257 Jan, [facility] [place] [facility] [address] [id number] [place] [address]- 8684 Nov, [facility] [place] [facility] [address] [id number] [place] [address]- 0954 Nov, [facility] [place] [facility] [address] [id number] [place] [address]- 6023 Aug, [facility] [place] [facility] [address] [id number] [place] [address]- 7240 Jun, [facility] [address] [id number] [place] [address]- 8076 Jun, [facility] [address] [id number] [place] [address]- 5326 Jun, [facility] [address] [id number] [place] [address]- 7861 May, [facility] [address] [id number] [place] [address]- 5415 May, [facility] [address] [id number] [place] [address]- 7028 May, [facility] [address] [id number] [place] [address]- 8706 May, [facility] [address] [id number] [place] [address]- 6258 Apr, [facility] [address] [id number] [place] [address]- 3905 Apr, [facility] [address] [id number] [place] [address]- 2543 Apr, [facility] [address] [facility] [id number] [place] [address]- 2403 Apr, [facility] [address] [id number] [place] [address]- 5543 Mar, [facility] [address] [id number] [place] [address]- 4402 Feb, [facility] [address] [id number] [place] [address]- 3556 16 Dec, 2010 [facility] [place] [facility] [address] [id number] [place] [address]- 2546 Nov, [facility] [address] [id number] [place] [address]- 3121 15 Jul, 2010 [facility] [address] [facility] [id number] [address]37 Apr, [facility] [address] [address] Apr, [facility] [address] [address]- 5994 Apr, [facility] [address] [facility] [id number] 8962 Mar, [facility] [address] [facility] [id number] 3[address] Mar, [facility] [address] Mar, [facility] [address] 9690 Feb, [facility] [address], [place] [address]- 0637 Feb, [facility] [address], [place] [address]- 4626 Feb, [facility] [address], [place] [address]- 3487 Feb, [facility] [id number] [address]- 0986 Dec, [facility] [address], [place] [address]- 0023 Oct, [facility] [id number] [address]- 0413 Oct, IMMUNIZATIONS No Known Immunizations SOCIAL HISTORY Never Assessed REASON FOR VISIT Anxiety PLAN OF CARE Activity Details Follow Up 3 Months Reason: VITAL SIGNS MEDICATIONS Unknown Medications RESULTS No [...]
--- OUTSIDE RECORDS SUMMARY | 2018-07-14 13:17 | XMS REPORT ---
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 Name Role Phone JALIL FRYE Unavailable PROBLEMS Type Condition ICD9-CM Code BNO95-XI Code Onset Dates Condition Status SNOMED Code Problem 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 Active 179122290236005 Problem Rheumatoid arthritis involving multiple sites, unspecified rheumatoid factor presence M06.9 Active 155701920 Problem Panic attacks F41.0 Active 082079711 Problem Other chronic pain G89.29 Active 80173350 Problem Porokeratosis Q82.8 Active 211463772 Problem Gastroesophageal reflux disease without esophagitis K21.9 Active 992595604 Problem Epilepsy, unspecified, not intractable, without status epilepticus G40.909 Active 913724963 Problem Depressive disorder, not elsewhere classified F32.9 Active 77633174 Problem Seasonal allergic rhinitis, unspecified allergic rhinitis trigger J30.2 Active 044822629 Problem Chronic hepatitis C B18.2 Active 554483541 Problem Essential hypertension I10 Active 64829166 Problem 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 Active 61442758 Problem Chronic obstructive pulmonary disease, unspecified COPD type J44.9 Active 91621330 Problem Methamphetamine abuse F15.10 Active 494953117 Problem Anxiety F41.9 Active 38710308 ALLERGIES No Information ENCOUNTERS Encounter Location Date Diagnosis [facility] [id number], [place] [address] Oct, Essential hypertension I10 ; Rheumatoid arthritis involving multiple sites, unspecified rheumatoid factor presence M06.9 and Chronic hepatitis C B18.2 [facility] [id number], [place] [address] Oct, [facility] [id number], [place] [address] Oct, Fissure in skin of foot R23.4 [place] [id number] [place] [address] 8712 Oct, Essential hypertension I10 [place] [id number] [place] [address] 34253- 9100 Oct, 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 [place] [address] [address] September, [place] [address] [address] September, Pain in right ankle and joints of right foot M25.571 and Other chronic pain G89.29 [place] [id number] [place] [address]- 6264 Aug, Essential hypertension I10 ; Rheumatoid arthritis involving multiple sites, unspecified rheumatoid factor presence M06.9 ; Gastroesophageal reflux disease without esophagitis K21.9 ; Anxiety F41.9 ; 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 and Dermatitis L30.9 [place] [id number] [place] [address]- 8985 Aug, Onychomycosis B35.1 ; Peroneal tendinitis, unspecified laterality M76.70 and Porokeratosis Q82.8 [place] [id number] [place] [address]- 6640 Jul, Porokeratosis Q82.8 ; Hyperhidrosis L74.519 and Callus of foot L84 [place] [id number] [place] [address]- [address]118 Apr, [place] [address] [address] Apr, [place] [id number] [place] [address]- [address]79 Mar, Well woman exam (no gynecological exam) Z00.00 ; Plantar wart B07.0 ; Pain of left foot M79.672 ; Pain in right foot M79.671 and Rheumatoid arthritis involving multiple sites, unspecified rheumatoid factor presence M06.9 [place] [address] [address] Nov, Bilateral low back pain, with sciatica presence unspecified M54.5 [place] [address] [address] Oct, Chronic obstructive pulmonary disease, unspecified COPD type J44.9 [place] [address] [address] September, [address] [address] September, Bilateral low back pain, with sciatica presence unspecified M54.[address] [facility] [address] [place] [address] September, Body aches R52 and Upper respiratory infection, acute J06.[address] [address] September, [facility] [address] [address] September, Left wrist injury, initial encounter S69.92XA and Contusion of wrist, left S60.212A [address] [address] Aug, Depressive disorder, not elsewhere classified F32.[address] [facility] [address] [place] [address] Jul, Seasonal allergic rhinitis, unspecified allergic rhinitis trigger J30.2 ; Rheumatoid arthritis flare M06.9 and Essential hypertension I10 [place] [address] [address]- [address] Jul, [place] [address] [address] Jul, Essential hypertension I10 [place] [id number] [place] [address]- 5780 Jul, Essential hypertension I10 ; Other chronic pain G89.29 ; Rheumatoid arthritis involving multiple sites, unspecified rheumatoid factor presence M06.9 and Insomnia due to medical condition G47.01 [place] [address] [address] Jul, [place] [address] [address] Jul, [place] [address] [address] Jun, [address] [address] Jun, 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 ; Essential hypertension I10 ; Chronic obstructive pulmonary disease, unspecified COPD type J44.9 ; Panic attacks F41.0 ; Hot flashes R23.2 ; Rheumatoid arthritis involving multiple sites, unspecified rheumatoid factor presence M06.9 ; Pain in thoracic spine M54.6 ; Other chronic pain G89.29 and Arthralgia, unspecified joint M25.[address] [facility] [address] [place] [id number] [place] [address] May, Rheumatoid arthritis flare M06.9 [facility] [address] [place] [id number] [place] [address] May, Left lower quadrant pain R10.32 ; Abdominal pain in female R10.9 ; Constipation, unspecified constipation type K59.00 and Gastroesophageal reflux disease without esophagitis K21.[address] [facility] [address] [address] Mar, Herpes genitalis in women A60.09 ; Bilateral impacted cerumen H61.23 and Injury of right ring finger, initial encounter S69.91XA [address] [address] Mar, [facility] [id number] [place] [address] Nov, Essential hypertension I10 ; Chronic hepatitis C B18.2 ; Arthralgia, unspecified joint M25.50 ; Chronic obstructive pulmonary disease, unspecified COPD type J44.9 ; Methamphetamine abuse F15.10 ; Simple chronic bronchitis J41.0 ; Hemorrhoids, unspecified hemorrhoid type K64.9 and Anxiety F41.9 [facility] [id number] [place] [address] Nov, [facility] [id number] [place] [address]- 0295 Feb, Elevated glucose R73.09 [id number] [place] [address] 687[address]- 5162 Feb, Elevated glucose R73.09 [id number] [place] [address]- 7917 Oct, [facility] [id number] [place] [address] 91286- 7492 Oct, [id number] [place] [address]- 8818 Oct, Essential hypertension, benign 401.1 ; Chronic hepatitis C without mention of hepatic coma 070.54 ; Anxiety state, unspecified 300.00 ; Genital herpes 054.10 ; Methamphetamine abuse 305.70 and Excessive cerumen in both ear canals 380.4 [facility] [id number] [place] [address]- 2720 Oct, [facility] [id number] [place] [address] 24677- 4024 Aug, [place] [id number] [place] [address] 890[address]- 4597 Aug, [facility] [id number] [place] [address] 66072- 8975 Jul, [place] [address] [place] [address] Jul, [facility] [place] [facility] [address] [id number] [place] [address]- 9191 Jun, [facility] [place] [facility] [address] [id number] [place] [address]- 0586 Jun, [facility] [place] [facility] [address] [id number] [place] [address]- 5296 Jun, [facility] [place] [facility] [address] [id number] [place] [address]- 6916 Jun, [facility] [place] [facility] [address] [id number] [place] [address]- 2700 May, [facility] [place] [facility] [address] [id number] [place] [address]- 6491 May, [facility] [place] [facility] [address] [id number] [place] [address]- 9432 May, [facility] [place] [facility] [address] [id number] [place] [address]- 1523 May, [facility] [place] [facility] [address] [id number] [place] [address]- 4408 May, [facility] [place] [facility] [address] [facility] [id number] [place] [address]- 1738 May, [facility] [place] [facility] [address] [id number] [place] [address]- 2153 May, [facility] [place] [facility] [address] [id number] [place] [address]- 5032 Apr, [facility] [place] [facility] [address] [id number] [place] [address]- 3027 Apr, [facility] [place] [facility] [address] [id number] [place] [address]- 9065 Apr, [facility] [place] [facility] [address] [id number] [place] [address]- 7158 Dec, [facility] [place] [facility] [address] [id number] [place] [address]- 8823 Dec, [facility] [place] [facility] [address] [id number] [place] [address]- 7641 Nov, [facility] [place] [facility] [address] [id number] [place] [address]- 4914 Nov, [facility] [place] [facility] [address] [id number] [place] [address]- 0997 Nov, [facility] [place] [facility] [address] [id number] [place] [address]- 4700 Nov, [facility] [place] [facility] [address] [id number] [place] [address]- 9754 Nov, [facility] [place] [facility] [address] [id number] [place] [address]- 8326 Nov, [facility] [place] [facility] [address] [id number] [place] [address]- 0453 Nov, [facility] [place] [facility] [address] [id number] [place] [address]- 1289 Nov, [facility] [place] [facility] [address] [id number] [place] [address]- 1945 Nov, [facility] [place] [facility] [address] [id number] [place] [address]- 3398 Nov, [facility] [place] [facility] [address] [id number] [place] [address]- 0692 Nov, [facility] [place] [facility] [address] [id number] [place] [address]- 6963 Nov, [facility] [place] [facility] [address] [id number] [place] [address]- 5737 Oct, [facility] [place] [facility] [address] [id number] [place] [address]- 3709 Oct, [facility] [place] [facility] [address] [id number] [place] [address]- 3975 September, [facility] [place] [facility] [address] [id number] [place] [address]- 7220 September, [facility] [place] [facility] [address] [id number] [place] [address]- 9852 Aug, [facility] [place] [facility] [address] [id number] [place] [address]- 0760 Aug, [facility] [place] [facility] [address] [id number] [place] [address]- 8429 Aug, [facility] [place] [facility] [address] [id number] [place] [address]- 5483 Aug, [facility] [place] [facility] [address] [id number] [place] [address]- 5721 Aug, [facility] [place] [facility] [address] [id number] [place] [address]- 4938 Aug, [facility] [place] [facility] [address] [id number] [place] [address]- 8738 Aug, [facility] [place] [facility] [address] [id number] [place] [address]- 5478 Aug, [facility] [place] [facility] [address] [id number] [place] [address]- 3063 Aug, [facility] [place] [facility] [address] [id number] [place] [address]- 8491 Aug, [facility] [place] [facility] [address] [id number] [place] [address]- 6929 Aug, [facility] [place] [facility] [address] [id number] [place] [address]- 9999 Jul, [facility] [place] [facility] [address] [id number] [place] [address]- 7066 Jul, [facility] [place] [facility] [address] [id number] [place] [address] Jul, [facility] [place] [facility] [address] [id number] [place] [address]- 4061 05 Jul, 2013 [facility] [place] [facility] [address] [id number] [place] [address]- 8631 Jul, [facility] [place] [facility] [address] [id number] [place] [address]- 1596 Jul, [facility] [place] [facility] [address] [id number] [place] [address]- 5449 Jul, [facility] [place] [facility] [address] [id number] [place] [address]- 0990 24 Jun, 2013 [facility] [place] [facility] [address] [id number] [place] [address]- 6429 Jun, [facility] [place] [facility] [address] [id number] [place] [address]- 9078 Jun, [facility] [place] [facility] [address] [id number] [place] [address]- 8140 Jun, [facility] [place] [facility] [address] [id number] [place] [address]- 9659 Jun, [facility] [place] [facility] [address] [id number] [place] [address]- 8020 Jun, [facility] [place] [facility] [address] [id number] [place] [address]- 9176 Jun, [facility] [place] [facility] [address] [id number] [place] [address]- 8377 Jan, [facility] [place] [facility] [address] [id number] [place] [address]- 0690 Nov, [facility] [place] [facility] [address] [id number] [place] [address]- 0550 Nov, [facility] [place] [facility] [address] [id number] [place] [address]- 3597 Aug, [facility] [place] [facility] [address] [id number] [place] [address]- 5946 Jun, [facility] [address] [id number] [place] [address]- 2196 Jun, [facility] [address] [id number] [place] [address]- 0276 Jun, [facility] [address] [id number] [place] [address]- 6525 May, [facility] [address] [id number] [place] [address]- 3251 May, [facility] [address] [id number] [place] [address]- 1704 May, [facility] [address] [id number] [place] [address]- 6746 May, [facility] [address] [id number] [place] [address]- 9324 Apr, [facility] [address] [id number] [place] [address]- 7431 Apr, [facility] [address] [id number] [place] [address]- 0584 Apr, [facility] [address] [facility] [id number] [place] [address]- 4027 Apr, [facility] [address] [id number] [place] [address]- 9286 Mar, [facility] [address] [id number] [place] [address]- 8420 Feb, [facility] [address] [id number] [place] [address]- 5217 16 Dec, 2010 [facility] [place] [facility] [address] [id number] [place] [address]- 2546 Nov, [facility] [address] [id number] [place] [address]- 7453 15 Jul, 2010 [facility] [address], [place] [address]- 3579 Apr, [facility] [address], [place] [address]- 1846 Apr, [facility] [address], [place] [address]- 4486 Apr, [facility] [address], [place] [address]- 8911 Mar, [facility] [address] [facility] [id number] [address]- 5068 Mar, [facility] [address], [place] [address]- 6098 Mar, [facility] [address] [address] Feb, [facility] [address] 8[address] Feb, [facility] [address], [place] [address]- 9021 Feb, [facility] [address], [place] [address]- 1599 Feb, [facility] [id number], [place] [address]- 4263 Dec, [facility] [address], [place] [address]- 6[address] Oct, [facility] [id number], [place] [address]- 4264 Oct, IMMUNIZATIONS No Known Immunizations SOCIAL HISTORY Never Assessed REASON FOR VISIT PLAN OF CARE VITAL SIGNS MEDICATIONS Medication Instructions Dosage Frequency Start Date End Date Duration Status Acyclovir 400 mg Orally Twice a day 1 tablet 12h 04 Oct, 2014 30 days Active RESULTS No Results PROCEDURES [...]
--- OUTSIDE RECORDS SUMMARY | 2018-07-14 13:18 | XMS REPORT ---
Author Author JALIL FRYE Organization [facility] Address [address] [place] [address] Care Team Providers Care Kiln Feeder Name Role Phone JALIL FRYE Unavailable PROBLEMS Type Condition ICD9-CM Code JFH99-VI Code Onset Dates Condition Status SNOMED Code Problem 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 Active [id number] Problem Rheumatoid arthritis involving multiple sites, unspecified rheumatoid factor presence M06.9 Active 922957490 Problem Panic attacks F41.0 Active 256615804 Problem Other chronic pain G89.29 Active 42952839 Problem Porokeratosis Q82.8 Active 302919715 Problem Gastroesophageal reflux disease without esophagitis K21.9 Active 958604681 Problem Epilepsy, unspecified, not intractable, without status epilepticus G40.909 Active 319472281 Problem Depressive disorder, not elsewhere classified F32.9 Active 46889102 Problem Seasonal allergic rhinitis, unspecified allergic rhinitis trigger J30.2 Active 732296100 Problem Chronic hepatitis C B18.2 Active 931104435 Problem Essential hypertension I10 Active 08703816 Problem 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 Active 07972621 Problem Chronic obstructive pulmonary disease, unspecified COPD type J44.9 Active 66225984 Problem Methamphetamine abuse F15.10 Active 888895771 Problem Anxiety F41.9 Active 75017714 ALLERGIES No Information ENCOUNTERS Encounter Location Date Diagnosis [facility] [id number] [address] Oct, Essential hypertension I10 ; Rheumatoid arthritis involving multiple sites, unspecified rheumatoid factor presence M06.9 and Chronic hepatitis C B18.2 [facility] [address] [id number] [address] Oct, [facility] [id number] [address] Oct, Fissure in skin of foot R23.4 [id number] [place] [address]89- 7453 Oct, Essential hypertension I10 [address] [id number] [place] [address] 82084- 7326 Oct, 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 [address] [address] [address] September, [address] [address] September, Pain in right ankle and joints of right foot M25.571 and Other chronic pain G89.29 [address] [id number] [place] [address] 16940- 6762 Aug, Essential hypertension I10 ; Rheumatoid arthritis involving multiple sites, unspecified rheumatoid factor presence M06.9 ; Gastroesophageal reflux disease without esophagitis K21.9 ; Anxiety F41.9 ; 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 and Dermatitis L30.9 [address] [place] [id number] [place] [address]88- 9586 Aug, Onychomycosis B35.1 ; Peroneal tendinitis, unspecified laterality M76.70 and Porokeratosis Q82.8 [address] [place] [id number] [place] [address] 70765- 9987 Jul, Porokeratosis Q82.8 ; Hyperhidrosis L74.519 and Callus of foot L84 [address] [place] [id number] [place] [address] 02183- 2981 Apr, [address] [place] [address] [address] Apr, [address] [place] [id number] [place] [address]84- 3959 Mar, Well woman exam (no gynecological exam) Z00.00 ; Plantar wart B07.0 ; Pain of left foot M79.672 ; Pain in right foot M79.671 and Rheumatoid arthritis involving multiple sites, unspecified rheumatoid factor presence M06.9 [address] [address] [address]- [address] Nov, Bilateral low back pain, with sciatica presence unspecified M54.5 [address] [address]- [address] Oct, Chronic obstructive pulmonary disease, unspecified COPD type J44.9 [address] [address] [address] September, [address] [address] September, Bilateral low back pain, with sciatica presence unspecified M54.5 [facility] [address] [place] [address] September, Body aches R52 and Upper respiratory infection, acute J06.[address] [address] September, [facility] [address] [address] September, Left wrist injury, initial encounter S69.92XA and Contusion of wrist, left S60.212A [address] [address] Aug, Depressive disorder, not elsewhere classified F32.9 [facility] [address] [place] [address] Jul, Seasonal allergic rhinitis, unspecified allergic rhinitis trigger J30.2 ; Rheumatoid arthritis flare M06.9 and Essential hypertension I10 [address] [address] Jul, [address] [address] [address] Jul, Essential hypertension I10 [address] [place] [id number] [place] [address]- 6[address] Jul, Essential hypertension I10 ; Other chronic pain G89.29 ; Rheumatoid arthritis involving multiple sites, unspecified rheumatoid factor presence M06.9 and Insomnia due to medical condition G47.01 [address] [address] [address]- [address]851 Jul, [address] [place] [address] [address] Jul, [address] [place] [address] [address] Jun, [address] [address] Jun, 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 ; Essential hypertension I10 ; Chronic obstructive pulmonary disease, unspecified COPD type J44.9 ; Panic attacks F41.0 ; Hot flashes R23.2 ; Rheumatoid arthritis involving multiple sites, unspecified rheumatoid factor presence M06.9 ; Pain in thoracic spine M54.6 ; Other chronic pain G89.29 and Arthralgia, unspecified joint M25.50 [facility] [address] [place] [id number] [place] [address] May, Rheumatoid arthritis flare M06.9 [facility] [address] [place] [id number] [place] [address] May, Left lower quadrant pain R10.32 ; Abdominal pain in female R10.9 ; Constipation, unspecified constipation type K59.00 and Gastroesophageal reflux disease without esophagitis K21.9 [facility] [address] [address] Mar, Herpes genitalis in women A60.09 ; Bilateral impacted cerumen H61.23 and Injury of right ring finger, initial encounter S69.91XA [address] [address] Mar, [facility] [address] [place] [address] 97755- 9228 Nov, Essential hypertension I10 ; Chronic hepatitis C B18.2 ; Arthralgia, unspecified joint M25.50 ; Chronic obstructive pulmonary disease, unspecified COPD type J44.9 ; Methamphetamine abuse F15.10 ; Simple chronic bronchitis J41.0 ; Hemorrhoids, unspecified hemorrhoid type K64.9 and Anxiety F41.9 [facility] [id number] [place] [address] Nov, [facility] [id number] [place] [address]358- 4[address] Feb, Elevated glucose R73.09 [id number] [place] [address] 37671- 1435 Feb, Elevated glucose R73.09 [id number] [place] [address] 74697- 0[address] Oct, [facility] [id number] [place] [address] 92236- 5781 Oct, [id number] [place] [address] 60023- 0728 Oct, Essential hypertension, benign 401.1 ; Chronic hepatitis C without mention of hepatic coma 070.54 ; Anxiety state, unspecified 300.00 ; Genital herpes 054.10 ; Methamphetamine abuse 305.70 and Excessive cerumen in both ear canals 380.4 [facility] [id number] [place] [address] 18542- 8730 Oct, [facility] [id number] [place] [address] 32767- 1857 Aug, [place] [id number] [place] [address] 68412- 9619 Aug, [facility] [id number] [place] [address] 37347- 0620 Jul, [address] [place] [address] Jul, [facility] [place] [facility] [address] [id number] [place] [address]- 47[address] Jun, [facility] [place] [facility] [address] [id number] [place] [address]- 6826 Jun, [facility] [place] [facility] [address] [id number] [place] [address]- 5[address] Jun, [facility] [place] [facility] [address] [id number] [place] [address]- 3146 Jun, [facility] [place] [facility] [address] [id number] [place] [address]- 8981 May, [facility] [place] [facility] [address] [id number] [place] [address]- 5621 May, [facility] [place] [facility] [address] [id number] [place] [address]- 0612 May, [facility] [place] [facility] [address] [id number] [place] [address]- 9882 May, [facility] [place] [facility] [address] [id number] [place] [address]- 4651 May, [facility] [place] [facility] [address] [facility] [id number] [place] [address]- 7882 May, [facility] [place] [facility] [address] [id number] [place] [address]- 2132 May, [facility] [place] [facility] [address] [id number] [place] [address]- 9141 Apr, [facility] [place] [facility] [address] [id number] [place] [address]- 1321 Apr, [facility] [place] [facility] [address] [id number] [place] [address]- 9204 Apr, [facility] [place] [facility] [address] [id number] [place] [address]- 5203 Dec, [facility] [place] [facility] [address] [id number] [place] [address]- 6784 Dec, [facility] [place] [facility] [address] [id number] [place] [address]- 0486 Nov, [facility] [place] [facility] [address] [id number] [place] [address]- 4420 Nov, [facility] [place] [facility] [address] [id number] [place] [address]- 8608 Nov, [facility] [place] [facility] [address] [id number] [place] [address]- 6829 Nov, [facility] [place] [facility] [address] [id number] [place] [address]- 1355 Nov, [facility] [place] [facility] [address] [id number] [place] [address]- 1175 Nov, [facility] [place] [facility] [address] [id number] [place] [address]- 0544 Nov, [facility] [place] [facility] [address] [id number] [place] [address]- 1294 Nov, [facility] [place] [facility] [address] [id number] [place] [address]- 5981 Nov, [facility] [place] [facility] [address] [id number] [place] [address]- 1838 Nov, [facility] [place] [facility] [address] [id number] [place] [address]- 2354 Nov, [facility] [place] [facility] [address] [id number] [place] [address]- 9877 Nov, [facility] [place] [facility] [address] [id number] [place] [address]- 3801 Oct, [facility] [place] [facility] [address] [id number] [place] [address]- 1813 Oct, [facility] [place] [facility] [address] [id number] [place] [address]- 4285 September, [facility] [place] [facility] [address] [id number] [place] [address]- 3136 September, [facility] [place] [facility] [address] [id number] [place] [address]- 1976 Aug, [facility] [place] [facility] [address] [id number] [place] [address]- 2439 Aug, [facility] [place] [facility] [address] [id number] [place] [address]- 6368 Aug, [facility] [place] [facility] [address] [id number] [place] [address]- 0533 Aug, [facility] [place] [facility] [address] [id number] [place] [address]- 4887 Aug, [facility] [place] [facility] [address] [id number] [place] [address]- 5317 Aug, [facility] [place] [facility] [address] [id number] [place] [address]- 8339 Aug, [facility] [place] [facility] [address] [id number] [place] [address]- 5074 Aug, [facility] [place] [facility] [address] [id number] [place] [address]- 5092 Aug, [facility] [place] [facility] [address] [id number] [place] [address]- 1602 Aug, [facility] [place] [facility] [address] [id number] [place] [address]- 8823 Aug, [facility] [place] [facility] [address] [id number] [place] [address]- 0744 Jul, [facility] [place] [facility] [address] [id number] [place] [address]- 6468 Jul, [facility] [place] [facility] [address] [id number] [place] [address] Jul, [facility] [place] [facility] [address] [id number] [place] [address]- 7340 05 Jul, 2013 [facility] [place] [facility] [address] [id number] [place] [address]- 0966 Jul, [facility] [place] [facility] [address] [id number] [place] [address]- 6259 Jul, [facility] [place] [facility] [address] [id number] [place] [address]- 8734 Jul, [facility] [place] [facility] [address] [id number] [place] [address]- 3973 24 Jun, 2013 [facility] [place] [facility] [address] [id number] [place] [address]- 7472 Jun, [facility] [place] [facility] [address] [id number] [place] [address]- 1692 Jun, [facility] [place] [facility] [address] [id number] [place] [address]- 9511 Jun, [facility] [place] [facility] [address] [id number] [place] [address]- 1475 Jun, [facility] [place] [facility] [address] [id number] [place] [address]- 3119 Jun, [facility] [place] [facility] [address] [id number] [place] [address]- 1086 Jun, [facility] [place] [facility] [address] [id number] [place] [address]- 3238 Jan, [facility] [place] [facility] [address] [id number] [place] [address]- 6412 Nov, [facility] [place] [facility] [address] [id number] [place] [address]- 1368 Nov, [facility] [place] [facility] [address] [id number] [place] [address]- 6712 Aug, [facility] [place] [facility] [address] [id number] [place] [address]- 7766 Jun, [facility] [address] [id number] [place] [address]- 0246 Jun, [facility] [address] [id number] [place] [address]- 5096 Jun, [facility] [address] [id number] [place] [address]- 6733 May, [facility] [address] [id number] [place] [address]- 9746 May, [facility] [address] [id number] [place] [address]- 3036 May, [facility] [address] [id number] [place] [address]- 3286 May, [facility] [address] [id number] [place] [address]- 8423 Apr, [facility] [address] [id number] [place] [address]- 9385 Apr, [facility] [address] [id number] [place] [address]- 6125 Apr, [facility] [address] [facility] [id number] [place] [address]- 5337 Apr, [facility] [address] [id number] [place] [address]- 8282 Mar, [facility] [address] [id number] [place] [address]- 6658 Feb, [facility] [address] [id number] [place] [address]- 7044 16 Dec, 2010 [facility] [place] [facility] [address] [id number] [place] [address]- 2546 Nov, [facility] [address] [id number] [place] [address]- 0382 15 Jul, 2010 [facility] [address] [facility] [id number] [address]- 6725 Apr, [facility] [address] [facility] [id number] [address]- 4134 Apr, [facility] [address] [facility] [id number] [address] Apr, [facility] [address] [facility] [id number] [address]- 5158 Mar, [facility] [address] [facility] [id number] [address]- 3860 Mar, [facility] [address] [address]- 6428 Mar, [facility] [address] [address]- 3360 Feb, [facility] [address] [address]- 4445 Feb, [facility] [address] [address]- 1248 Feb, [facility] [id number] [address]- 1746 Feb, [facility] [id number] [address]- 0790 Dec, [facility] [id number] [address]- 6302 Oct, [facility] [id number] [address]- 4739 Oct, IMMUNIZATIONS No Known Immunizations SOCIAL HISTORY Never Assessed REASON FOR VISIT Requests return call PLAN OF CARE VITAL SIGNS MEDICATIONS Unknown [...]
--- OUTSIDE RECORDS SUMMARY | 2018-07-14 13:18 | XMS REPORT ---
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 Name Role Phone DANIEL SANDOVAL Unavailable PROBLEMS Type Condition ICD9-CM Code CPZ85-YA Code Onset Dates Condition Status SNOMED Code Problem 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 Active [id number] Problem Rheumatoid arthritis involving multiple sites, unspecified rheumatoid factor presence M06.9 Active 106203636 Problem Panic attacks F41.0 Active 251635652 Problem Other chronic pain G89.29 Active 16202841 Problem Porokeratosis Q82.8 Active 321555368 Problem Gastroesophageal reflux disease without esophagitis K21.9 Active 064303600 Problem Epilepsy, unspecified, not intractable, without status epilepticus G40.909 Active 007383342 Problem Depressive disorder, not elsewhere classified F32.9 Active 28532715 Problem Seasonal allergic rhinitis, unspecified allergic rhinitis trigger J30.2 Active 677621695 Problem Chronic hepatitis C B18.2 Active 976340636 Problem Essential hypertension I10 Active 03569638 Problem 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 Active 66195915 Problem Chronic obstructive pulmonary disease, unspecified COPD type J44.9 Active 25307585 Problem Methamphetamine abuse F15.10 Active 758261502 Problem Anxiety F41.9 Active 65042512 ALLERGIES No Information ENCOUNTERS Encounter Location Date Diagnosis [facility] [id number] [address] Oct, Essential hypertension I10 ; Rheumatoid arthritis involving multiple sites, unspecified rheumatoid factor presence M06.9 and Chronic hepatitis C B18.2 [facility] [id number] [address] Oct, [facility] [id number] [address] Oct, Fissure in skin of foot R23.4 [place] [facility] [id number] [place] [address]- [address]953 Oct, Essential hypertension I10 [facility] [id number] [place] [address] 80490- 9914 Oct, 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 [place] [address] [address] September, [place] [address] [address] September, Pain in right ankle and joints of right foot M25.571 and Other chronic pain G89.29 [facility] [facility] [id number] [place] [address] 94[address]- 1297 Aug, Essential hypertension I10 ; Rheumatoid arthritis involving multiple sites, unspecified rheumatoid factor presence M06.9 ; Gastroesophageal reflux disease without esophagitis K21.9 ; Anxiety F41.9 ; 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 and Dermatitis L30.9 [place] [id number] [place] [address]- 6[address] Aug, Onychomycosis B35.1 ; Peroneal tendinitis, unspecified laterality M76.70 and Porokeratosis Q82.8 [place] [id number] [place] [address]2640- 1017 Jul, Porokeratosis Q82.8 ; Hyperhidrosis L74.519 and Callus of foot L84 [place] [id number] [place] [address]42- 8753 Apr, [place] [address] [address] Apr, [place] [id number] [place] [address] 08602- 6137 Mar, Well woman exam (no gynecological exam) Z00.00 ; Plantar wart B07.0 ; Pain of left foot M79.672 ; Pain in right foot M79.671 and Rheumatoid arthritis involving multiple sites, unspecified rheumatoid factor presence M06.9 [place] [address] [address] Nov, Bilateral low back pain, with sciatica presence unspecified M54.5 [place] [address] [address] Oct, Chronic obstructive pulmonary disease, unspecified COPD type J44.9 [place] [address] [address] September, [address] [address] September, Bilateral low back pain, with sciatica presence unspecified M54.5 [facility] [address] [place] [address] September, Body aches R52 and Upper respiratory infection, acute J06.[address] [address] September, [facility] [address] [address] September, Left wrist injury, initial encounter S69.92XA and Contusion of wrist, left S60.212A [address] [address] Aug, Depressive disorder, not elsewhere classified F32.9 [facility] [address] [place] [address] Jul, Seasonal allergic rhinitis, unspecified allergic rhinitis trigger J30.2 ; Rheumatoid arthritis flare M06.9 and Essential hypertension I10 [address] [address] [address] [address] Jul, [place] [address] [address] Jul, Essential hypertension I10 [place] [id number] [place] [address]- 1004 Jul, Essential hypertension I10 ; Other chronic pain G89.29 ; Rheumatoid arthritis involving multiple sites, unspecified rheumatoid factor presence M06.9 and Insomnia due to medical condition G47.01 [address] [address] [address] Jul, [place] [address] [address] Jul, [place] [address] [address] Jun, [address] [address] Jun, 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 ; Essential hypertension I10 ; Chronic obstructive pulmonary disease, unspecified COPD type J44.9 ; Panic attacks F41.0 ; Hot flashes R23.2 ; Rheumatoid arthritis involving multiple sites, unspecified rheumatoid factor presence M06.9 ; Pain in thoracic spine M54.6 ; Other chronic pain G89.29 and Arthralgia, unspecified joint M25.50 [facility] [address] [place] [id number] [place] [address] May, Rheumatoid arthritis flare M06.9 [facility] [address] [place] [id number] [place] [address] May, Left lower quadrant pain R10.32 ; Abdominal pain in female R10.9 ; Constipation, unspecified constipation type K59.00 and Gastroesophageal reflux disease without esophagitis K21.9 [facility] [address] [address] Mar, Herpes genitalis in women A60.09 ; Bilateral impacted cerumen H61.23 and Injury of right ring finger, initial encounter S69.91XA [address] [address] Mar, [facility] [id number] [place] [address] Nov, Essential hypertension I10 ; Chronic hepatitis C B18.2 ; Arthralgia, unspecified joint M25.50 ; Chronic obstructive pulmonary disease, unspecified COPD type J44.9 ; Methamphetamine abuse F15.10 ; Simple chronic bronchitis J41.0 ; Hemorrhoids, unspecified hemorrhoid type K64.9 and Anxiety F41.9 [facility] [id number] [place] [address] Nov, [facility] [id number] [place] [address]57- [address] Feb, Elevated glucose R73.09 [id number] [place] [address]- [address] Feb, Elevated glucose R73.09 [id number] [place] [address]- 3[address] Oct, [facility] [id number] [place] [address]- 31[address] Oct, [address] [id number] [place] [address] 16124- 4181 Oct, Essential hypertension, benign 401.1 ; Chronic hepatitis C without mention of hepatic coma 070.54 ; Anxiety state, unspecified 300.00 ; Genital herpes 054.10 ; Methamphetamine abuse 305.70 and Excessive cerumen in both ear canals 380.4 [facility] [id number] [place] [address]2699- 0798 Oct, [facility] [id number] [place] [address] 24719- 8[address] Aug, [place] [id number] [place] [address]- 64[address] Aug, [facility] [id number] [place] [address] 95869- 2071 Jul, [place] [address] [place] [address] Jul, [facility] [place] [facility] [address] [id number] [place] [address]- [address] Jun, [facility] [place] [facility] [address] [id number] [place] [address]- 4[address] Jun, [facility] [place] [facility] [address] [id number] [place] [address]- 0066 Jun, [facility] [place] [facility] [address] [id number] [place] [address]- 4685 Jun, [facility] [place] [facility] [address] [id number] [place] [address]- 2547 May, [facility] [place] [facility] [address] [id number] [place] [address]- 0175 May, [facility] [place] [facility] [address] [id number] [place] [address]- 5905 May, [facility] [place] [facility] [address] [id number] [place] [address]- 0488 May, [facility] [place] [facility] [address] [id number] [place] [address]- 2426 May, [facility] [place] [facility] [address] [facility] [id number] [place] [address]- 1827 May, [facility] [place] [facility] [address] [id number] [place] [address]- 0354 May, [facility] [place] [facility] [address] [id number] [place] [address]- 0443 Apr, [facility] [place] [facility] [address] [id number] [place] [address]- 8222 Apr, [facility] [place] [facility] [address] [id number] [place] [address]- 0335 Apr, [facility] [place] [facility] [address] [id number] [place] [address]- 2547 Dec, [facility] [place] [facility] [address] [id number] [place] [address]- 3565 Dec, [facility] [place] [facility] [address] [id number] [place] [address]- 4406 Nov, [facility] [place] [facility] [address] [id number] [place] [address]- 6272 Nov, [facility] [place] [facility] [address] [id number] [place] [address]- 5674 Nov, [facility] [place] [facility] [address] [id number] [place] [address]- 9111 Nov, [facility] [place] [facility] [address] [id number] [place] [address]- 9603 Nov, [facility] [place] [facility] [address] [id number] [place] [address]- 6541 Nov, [facility] [place] [facility] [address] [id number] [place] [address]- 9103 Nov, [facility] [place] [facility] [address] [id number] [place] [address]- 8919 Nov, [facility] [place] [facility] [address] [id number] [place] [address]- 9967 Nov, [facility] [place] [facility] [address] [id number] [place] [address]- 7073 Nov, [facility] [place] [facility] [address] [id number] [place] [address]- 9429 Nov, [facility] [place] [facility] [address] [id number] [place] [address]- 5119 Nov, [facility] [place] [facility] [address] [id number] [place] [address]- 8141 Oct, [facility] [place] [facility] [address] [id number] [place] [address]- 5510 Oct, [facility] [place] [facility] [address] [id number] [place] [address]- 3117 September, [facility] [place] [facility] [address] [id number] [place] [address]- 8685 September, [facility] [place] [facility] [address] [id number] [place] [address]- 8555 Aug, [facility] [place] [facility] [address] [id number] [place] [address]- 8914 Aug, [facility] [place] [facility] [address] [id number] [place] [address]- 0082 Aug, [facility] [place] [facility] [address] [id number] [place] [address]- 5307 Aug, [facility] [place] [facility] [address] [id number] [place] [address]- 6198 Aug, [facility] [place] [facility] [address] [id number] [place] [address]- 6714 Aug, [facility] [place] [facility] [address] [id number] [place] [address]- 9458 Aug, [facility] [place] [facility] [address] [id number] [place] [address]- 5383 Aug, [facility] [place] [facility] [address] [id number] [place] [address]- 0547 Aug, [facility] [place] [facility] [address] [id number] [place] [address]- 4947 Aug, [facility] [place] [facility] [address] [id number] [place] [address]- 1508 Aug, [facility] [place] [facility] [address] [id number] [place] [address]- 7032 Jul, [facility] [place] [facility] [address] [id number] [place] [address]- 6403 Jul, [facility] [place] [facility] [address] [id number] [place] [address] Jul, [facility] [place] [facility] [address] [id number] [place] [address]- 0162 05 Jul, 2013 [facility] [place] [facility] [address] [id number] [place] [address]- 6020 Jul, [facility] [place] [facility] [address] [id number] [place] [address]- 8015 Jul, [facility] [place] [facility] [address] [id number] [place] [address]- 9894 Jul, [facility] [place] [facility] [address] [id number] [place] [address]- 2834 24 Jun, 2013 [facility] [place] [facility] [address] [id number] [place] [address]- 4053 Jun, [facility] [place] [facility] [address] [id number] [place] [address]- 3642 Jun, [facility] [place] [facility] [address] [id number] [place] [address]- 7930 Jun, [facility] [place] [facility] [address] [id number] [place] [address]- 2017 Jun, [facility] [place] [facility] [address] [id number] [place] [address]- 3837 Jun, [facility] [place] [facility] [address] [id number] [place] [address]- 6536 Jun, [facility] [place] [facility] [address] [id number] [place] [address]- 7704 Jan, [facility] [place] [facility] [address] [id number] [place] [address]- 9103 Nov, [facility] [place] [facility] [address] [id number] [place] [address]- 0819 Nov, [facility] [place] [facility] [address] [id number] [place] [address]- 6845 Aug, [facility] [place] [facility] [address] [id number] [place] [address]- 2286 Jun, [facility] [address] [id number] [place] [address]- 5446 Jun, [facility] [address] [id number] [place] [address]- 7416 Jun, [facility] [address] [id number] [place] [address]- 0521 May, [facility] [address] [id number] [place] [address]- 7780 May, [facility] [address] [id number] [place] [address]- 0658 May, [facility] [address] [id number] [place] [address]- 7716 May, [facility] [address] [id number] [place] [address]- 0708 Apr, [facility] [address] [id number] [place] [address]- 4207 Apr, [facility] [address] [id number] [place] [address]- 3004 Apr, [facility] [address] [facility] [id number] [place] [address]- 8878 Apr, [facility] [address] [id number] [place] [address]- 8788 Mar, [facility] [address] [id number] [place] [address]- 5276 Feb, [facility] [address] [id number] [place] [address]- 2616 16 Dec, 2010 [facility] [place] [facility] [address] [id number] [place] [address]- 2546 Nov, [facility] [address] [id number] [place] [address]- 5333 Jul, [facility] [address] [address]- 98[address] Apr, [facility] [address] [address]- 0[address] Apr, [facility] [address] [address]- 6[address] Apr, [facility] [address] [address]- 67[address] Mar, [facility] [address] [address]- 2677 Mar, [facility] [address] [address]- 2751 Mar, [facility] [address] [address] Feb, [facility] [address] [address]- 6549 Feb, [facility] [address] [address]- 9796 Feb, [facility] [address] [address]32 Feb, [facility] [id number] [address]- 8767 Dec, [facility] [id number] [address]- 5947 Oct, [facility] [id number] [address] Oct, IMMUNIZATIONS No Known Immunizations SOCIAL HISTORY Never Assessed REASON FOR VISIT 6 wk f/u. Consult Dr. Sandoval;Reginald RT(R) PLAN OF CARE Activity Details Follow Up 4 Weeks Reason: VITAL SIGNS MEDICATIONS Unknown Medications RESULTS No Results PROCEDURES Procedure Date Ordered Result Body Site DESTRUCT LESION, -14 August 29, 2017 INSTRUCTIONS MEDICATIONS ADMINISTERED No Known Medications MEDICAL [...]
--- OUTSIDE RECORDS SUMMARY | 2018-07-14 13:19 | XMS REPORT ---
Author Author JALIL FRYE Organization [facility] Address [address] [place] [address] Care Team Providers Care Professional Benefits Sales Consultant Name Role Phone JALIL FRYE Unavailable PROBLEMS Type Condition ICD9-CM Code AFX97-SU Code Onset Dates Condition Status SNOMED Code Problem 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 Active 187893200222661 Problem Rheumatoid arthritis involving multiple sites, unspecified rheumatoid factor presence M06.9 Active 283051840 Problem Panic attacks F41.0 Active 368282247 Problem Other chronic pain G89.29 Active 50212621 Problem Porokeratosis Q82.8 Active 105265627 Problem Gastroesophageal reflux disease without esophagitis K21.9 Active 111465550 Problem Epilepsy, unspecified, not intractable, without status epilepticus G40.909 Active 798418473 Problem Depressive disorder, not elsewhere classified F32.9 Active 06499024 Problem Seasonal allergic rhinitis, unspecified allergic rhinitis trigger J30.2 Active 846526255 Problem Chronic hepatitis C B18.2 Active 594301846 Problem Essential hypertension I10 Active 75854616 Problem 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 Active 23452969 Problem Chronic obstructive pulmonary disease, unspecified COPD type J44.9 Active 46073019 Problem Methamphetamine abuse F15.10 Active 054605843 Problem Anxiety F41.9 Active 35435429 ALLERGIES Substance Reaction Event Type Date Status Macrobid Unknown Drug Allergy Aug, Active ENCOUNTERS Encounter Location Date Diagnosis [facility] [id number] [address] Oct, Essential hypertension I10 ; Rheumatoid arthritis involving multiple sites, unspecified rheumatoid factor presence M06.9 and Chronic hepatitis C B18.2 [facility] [address] [id number], [place] [address] Oct, [facility] [id number] [place] [address]- 29[address] 15 Oct, 2017 Fissure in skin of foot R23.4 [place] [address] [address] 07 Oct, 2017 Essential hypertension I10 [place] [id number] [place] [address]53- 1825 Oct, 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 [place] [address] [address] September, [place] [address] [address] September, Pain in right ankle and joints of right foot M25.571 and Other chronic pain G89.29 [place] [address] [address] Aug, Essential hypertension I10 ; Rheumatoid arthritis involving multiple sites, unspecified rheumatoid factor presence M06.9 ; Gastroesophageal reflux disease without esophagitis K21.9 ; Anxiety F41.9 ; 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 and Dermatitis L30.9 [place] [id number] [place] [address]65- 7752 Aug, Onychomycosis B35.1 ; Peroneal tendinitis, unspecified laterality M76.70 and Porokeratosis Q82.8 [place] [id number] [place] [address]52- 3425 Jul, Porokeratosis Q82.8 ; Hyperhidrosis L74.519 and Callus of foot L84 [place] [id number] [place] [address] 6[address]31- 9416 Apr, [place] [address] [address] Apr, [place] [id number] [place] [address] 81468- 2687 Mar, Well woman exam (no gynecological exam) Z00.00 ; Plantar wart B07.0 ; Pain of left foot M79.672 ; Pain in right foot M79.671 and Rheumatoid arthritis involving multiple sites, unspecified rheumatoid factor presence M06.9 [place] [address] [address]- [address] Nov, Bilateral low back pain, with sciatica presence unspecified M54.5 [place] [address] [address] 9140 Oct, Chronic obstructive pulmonary disease, unspecified COPD type J44.9 [place] [address] [address]- [address] September, [address] [address] September, Bilateral low back pain, with sciatica presence unspecified M54.5 [facility] [address] [place] [address] September, Body aches R52 and Upper respiratory infection, acute J06.[address] [address] September, [facility] [address] [address] September, Left wrist injury, initial encounter S69.92XA and Contusion of wrist, left S60.212A [address] [address]- [address] Aug, Depressive disorder, not elsewhere classified F32.9 [facility] [address] [place] [address] Jul, Seasonal allergic rhinitis, unspecified allergic rhinitis trigger J30.2 ; Rheumatoid arthritis flare M06.9 and Essential hypertension I10 [address] [address]- [address] Jul, [place] [address] [address] Jul, Essential hypertension I10 [place] [id number] [place] [address]256- 6757 Jul, Essential hypertension I10 ; Other chronic pain G89.29 ; Rheumatoid arthritis involving multiple sites, unspecified rheumatoid factor presence M06.9 and Insomnia due to medical condition G47.01 [place] [address] [address]- [address] Jul, [place] [address] [address]- 6[address] Jul, [place] [address] 8[address] Jun, [place] [address] [address]- [address] Jun, 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 ; Essential hypertension I10 ; Chronic obstructive pulmonary disease, unspecified COPD type J44.9 ; Panic attacks F41.0 ; Hot flashes R23.2 ; Rheumatoid arthritis involving multiple sites, unspecified rheumatoid factor presence M06.9 ; Pain in thoracic spine M54.6 ; Other chronic pain G89.29 and Arthralgia, unspecified joint M25.50 [facility] [id number] [place] [address] May, Rheumatoid arthritis flare M06.9 [facility] [id number] [place] [address] May, Left lower quadrant pain R10.32 ; Abdominal pain in female R10.9 ; Constipation, unspecified constipation type K59.00 and Gastroesophageal reflux disease without esophagitis K21.9 [facility] [address] [address] Mar, Herpes genitalis in women A60.09 ; Bilateral impacted cerumen H61.23 and Injury of right ring finger, initial encounter S69.91XA [address] [address] Mar, [facility] [id number] [place] [address] 01665- 1728 Nov, Essential hypertension I10 ; Chronic hepatitis C B18.2 ; Arthralgia, unspecified joint M25.50 ; Chronic obstructive pulmonary disease, unspecified COPD type J44.9 ; Methamphetamine abuse F15.10 ; Simple chronic bronchitis J41.0 ; Hemorrhoids, unspecified hemorrhoid type K64.9 and Anxiety F41.9 [facility] [id number] [place] [address] Nov, [facility] [address] [address] Feb, Elevated glucose R73.09 [place] [address] [address]- [address] Feb, Elevated glucose R73.09 [facility] [id number] [place] [address] 11936- 3648 Oct, [facility] [id number] [place] [address] 63019- 7696 Oct, [facility] [id number] [place] [address] 98974- 3063 Oct, Essential hypertension, benign 401.1 ; Chronic hepatitis C without mention of hepatic coma 070.54 ; Anxiety state, unspecified 300.00 ; Genital herpes 054.10 ; Methamphetamine abuse 305.70 and Excessive cerumen in both ear canals 380.4 [facility] [id number] [place] [address] 02890- 0892 Oct, [facility] [address] 0[address]- 6335 Aug, [facility] [id number] [place] [address]19- 5378 Aug, [facility] [id number] [place] [address] 30933- 8769 Jul, [facility] [place] [facility] [address] [id number] [place] [address]- 2276 Jul, [facility] [place] [facility] [address] [id number] [place] [address]- 6168 Jun, [facility] [place] [facility] [address] [id number] [place] [address]- 5347 Jun, [facility] [place] [facility] [address] [id number] [place] [address]- 7373 Jun, [facility] [place] [facility] [address] [id number] [place] [address]- 6012 Jun, [facility] [place] [facility] [address] [id number] [place] [address]- 2974 May, [facility] [place] [facility] [address] [id number] [place] [address]- 1069 May, [facility] [place] [facility] [address] [id number] [place] [address]- 3270 May, [facility] [place] [facility] [address] [id number] [place] [address]- 9657 May, [facility] [place] [facility] [address] [id number] [place] [address]- 3342 May, [facility] [place] [facility] [address] [id number] [place] [address]- 9297 May, [facility] [place] [facility] [address] [id number] [place] [address]- 1113 May, [facility] [place] [facility] [address] [id number] [place] [address]- 0577 Apr, [facility] [place] [facility] [address] [id number] [place] [address]- 2120 Apr, [facility] [place] [facility] [address] [id number] [place] [address]- 2650 Apr, [facility] [place] [facility] [address] [id number] [place] [address]- 0588 Dec, [facility] [place] [facility] [address] [id number] [place] [address]- 9679 Dec, [facility] [place] [facility] [address] [id number] [place] [address]- 1854 Nov, [facility] [place] [facility] [address] [id number] [place] [address]- 7720 Nov, [facility] [place] [facility] [address] [id number] [place] [address]- 7371 Nov, [facility] [place] [facility] [address] [id number] [place] [address]- 6102 Nov, [facility] [place] [facility] [address] [id number] [place] [address]- 7685 Nov, [facility] [place] [facility] [address] [id number] [place] [address]- 9783 Nov, [facility] [place] [facility] [address] [id number] [place] [address]- 7604 Nov, [facility] [place] [facility] [address] [id number] [place] [address]- 3782 Nov, [facility] [place] [facility] [address] [id number] [place] [address]- 8122 Nov, [facility] [place] [facility] [address] [id number] [place] [address]- 5278 Nov, [facility] [place] [facility] [address] [id number] [place] [address]- 1121 Nov, [facility] [place] [facility] [address] [id number] [place] [address]- 8226 Nov, [facility] [place] [facility] [address] [id number] [place] [address]- 0981 Oct, [facility] [place] [facility] [address] [id number] [place] [address]- 7759 Oct, [facility] [place] [facility] [address] [id number] [place] [address]- 5215 September, [facility] [place] [facility] [address] [id number] [place] [address]- 6785 September, [facility] [place] [facility] [address] [id number] [place] [address]- 0640 Aug, [facility] [place] [facility] [address] [id number] [place] [address]- 0788 Aug, [facility] [place] [facility] [address] [id number] [place] [address]- 2667 Aug, [facility] [place] [facility] [address] [id number] [place] [address]- 5516 Aug, [facility] [place] [facility] [address] [id number] [place] [address]- 1079 Aug, [facility] [place] [facility] [address] [id number] [place] [address]- 5664 Aug, [facility] [place] [facility] [address] [id number] [place] [address]- 0098 Aug, [facility] [place] [facility] [address] [id number] [place] [address]- 9101 Aug, [facility] [place] [facility] [address] [id number] [place] [address]- 7175 Aug, [facility] [place] [facility] [address] [id number] [place] [address]- 4952 Aug, [facility] [place] [facility] [address] [id number] [place] [address]- 3992 Aug, [facility] [place] [facility] [address] [id number] [place] [address]- 3343 Jul, [facility] [place] [facility] [address] [id number] [place] [address]- 3294 Jul, [facility] [place] [facility] [address] [id number] [place] [address]- 6461 Jul, [facility] [place] [facility] [address] [id number] [place] [address]- 7551 Jul, [facility] [place] [facility] [address] [id number] [place] [address]- 3226 Jul, [facility] [place] [facility] [address] [id number] [place] [address]- 6137 Jul, [facility] [place] [facility] [address] [id number] [place] [address]- 7158 Jul, [facility] [place] [facility] [address] [id number] [place] [address]- 7928 24 Jun, 2013 [facility] [place] [facility] [address] [id number] [place] [address]- 3389 Jun, [facility] [place] [facility] [address] [facility] [id number] [place] [address]- 2585 Jun, [facility] [place] [facility] [address] [facility] [id number] [place] [address]- 5618 Jun, [facility] [place] [facility] [address] [facility] [id number] [place] [address]- 4541 Jun, [facility] [place] [facility] [address] [facility] [id number] [place] [address]- 3944 Jun, [facility] [place] [facility] [address] [facility] [id number] [place] [address]- 4791 Jun, [facility] [place] [facility] [address] [facility] [id number] [place] [address]- 2683 Jan, [facility] [place] [facility] [address] [id number] [place] [address]- 7126 Nov, [facility] [place] [facility] [address] [facility] [id number] [place] [address]- 9829 Nov, [facility] [place] [facility] [address] [facility] [id number] [place] [address]- 4080 Aug, [facility] [place] [facility] [address] [id number] [place] [address]- 6329 Jun, [facility] [place] [facility] [address] [id number] [place] [address]- 7776 Jun, [facility] [place] [facility] [address] [id number] [place] [address]- 3087 Jun, [facility] [place] [facility] [address] [id number] [place] [address]- 0187 May, [facility] [place] [facility] [address] [id number] [place] [address]- 7929 May, [facility] [place] [facility] [address] [id number] [place] [address]- 4529 May, [facility] [place] [facility] [address] [id number] [place] [address]- 8286 May, [facility] [address] [id number] [place] [address]- 1146 Apr, [facility] [place] [facility] [address] [id number] [place] [address]- 6551 Apr, [facility] [place] [facility] [address] [id number] [place] [address]- 0269 Apr, [facility] [place] [facility] [address] [id number] [place] [address]- 6575 Apr, [facility] [place] [facility] [address] [id number], [place] [address]- 6437 Mar, [facility] [place] [facility] [address] [id number] [place] [address]- 8741 Feb, [facility] [place] [facility] [address] [id number] [place] [address]- 2546 16 Dec, 2010 [facility] [place] [facility] [address] [id number] [place] [address]- 2983 Nov, [facility] [place] [facility] [id number] [address]- 3755 Jul, [facility] [address] [address] Apr, [facility] [address] [address] Apr, [facility] [id number] [place] [address] 099361- 1290 Apr, [facility] [id number] [place] [address] 005975- 7148 Mar, [facility] [id number] [place] [address] 898753- 7828 Mar, [facility] [id number] [place] [address] 50553- 3921 Mar, [facility] [id number] [place] [address] 37544- 8334 Feb, [facility] [address], [place] [address]- 6040 Feb, [facility] [id number] [place] [address] 26964- 9404 Feb, [facility] [address], [place] [address]- 1069 Feb, [facility] [address], [place] [address]- 3220 Dec, [facility] [address], [place] [address]- 3373 Oct, [facility] [address] [address] Oct, IMMUNIZATIONS No Known Immunizations SOCIAL HISTORY Never Assessed REASON FOR VISIT Transition of Care Anita HANNON throughout the abdomen PLAN OF CARE Activity Details Follow Up 3 Months Reason: VITAL SIGNS Height 60 in 2017-09-01 Weight 180 lbs 2017-09-01 Temperature 98.2 degrees Fahrenheit 2017-09-01 Heart Rate 94 bpm 2017-09-01 Respiratory Rate 20 2017-09-01 BMI 35.15 kg/m2 2017-09-01 Blood pressure systolic 138 mmHg 2017-09-01 Blood pressure diastolic 90 mmHg 2017-09-01 MEDICATIONS Medication Instructions Dosage Frequency Start Date End Date Duration Status Omeprazole 40 MG Orally Once a day 1 capsule 24h May, 30 day(s ) Active Proventil HFA 108 (90 Base) MCG/ACT Inhalation every 4 hrs 2 puffs as needed 4h Nov, Active Acyclovir 400 MG Orally Twice a day 1 tablet 12h Oct, 90 days Active Tramadol HCl 50 MG Orally every 6 hrs 1 tablet as needed 6h Active Atenolol 50 mg Orally Once a day 1 tablet 24h Nov, Active Lisinopril 40 mg Orally Once a day 1 tablet 24h Nov, Active Plaquenil 200 MG Orally Once a day 1 tablet with food or milk 24h Active Hydrochlorothiazide 25 MG Orally Once a [...]
--- OUTSIDE RECORDS SUMMARY | 2018-07-14 13:19 | XMS REPORT ---
Author Author LROI DANIEL Organization [facility] Address [address] [place] [address] Care Team Providers Care Turner Machine Name Role Phone DANIEL SANDOVAL Unavailable PROBLEMS Type Condition ICD9-CM Code VOO27-WI Code Onset Dates Condition Status SNOMED Code Problem 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 Active 829119802994168 Problem Rheumatoid arthritis involving multiple sites, unspecified rheumatoid factor presence M06.9 Active 422864585 Problem Panic attacks F41.0 Active 993281222 Problem Other chronic pain G89.29 Active 97790347 Problem Porokeratosis Q82.8 Active 382692986 Problem Gastroesophageal reflux disease without esophagitis K21.9 Active 699185519 Problem Epilepsy, unspecified, not intractable, without status epilepticus G40.909 Active 432050066 Problem Depressive disorder, not elsewhere classified F32.9 Active 23624702 Problem Seasonal allergic rhinitis, unspecified allergic rhinitis trigger J30.2 Active 271063102 Problem Chronic hepatitis C B18.2 Active 679581728 Problem Essential hypertension I10 Active 50873245 Problem 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 Active 83230297 Problem Chronic obstructive pulmonary disease, unspecified COPD type J44.9 Active 48385192 Problem Methamphetamine abuse F15.10 Active 284309473 Problem Anxiety F41.9 Active 71293543 ALLERGIES No Information ENCOUNTERS Encounter Location Date Diagnosis [facility] [id number] [address] Oct, Essential hypertension I10 ; Rheumatoid arthritis involving multiple sites, unspecified rheumatoid factor presence M06.9 and Chronic hepatitis C B18.2 [facility] [id number] [address] Oct, [facility] [id number] [address] Oct, Fissure in skin of foot R23.4 [place] [id number] [place] [address]- 4498 Oct, Essential hypertension I10 [place] [id number] [place] [address] 55005- 1299 Oct, 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 [place] [address] [address] September, [place] [address] [address] September, Pain in right ankle and joints of right foot M25.571 and Other chronic pain G89.29 [place] [id number] [place] [address] 15241- 8670 Aug, Essential hypertension I10 ; Rheumatoid arthritis involving multiple sites, unspecified rheumatoid factor presence M06.9 ; Gastroesophageal reflux disease without esophagitis K21.9 ; Anxiety F41.9 ; 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 and Dermatitis L30.9 [place] [id number] [place] [address] 7811 Aug, Onychomycosis B35.1 ; Peroneal tendinitis, unspecified laterality M76.70 and Porokeratosis Q82.8 [place] [id number] [place] [address] 19626- 9193 Jul, Porokeratosis Q82.8 ; Hyperhidrosis L74.519 and Callus of foot L84 [place] [id number] [place] [address] 11666- 6764 Apr, [place] [address] [address] Apr, [place] [id number] [place] [address] 35841- 9307 Mar, Well woman exam (no gynecological exam) Z00.00 ; Plantar wart B07.0 ; Pain of left foot M79.672 ; Pain in right foot M79.671 and Rheumatoid arthritis involving multiple sites, unspecified rheumatoid factor presence M06.9 [place] [address] [address] Nov, Bilateral low back pain, with sciatica presence unspecified M54.5 [place] [address] [address] Oct, Chronic obstructive pulmonary disease, unspecified COPD type J44.9 [place] [address] [address] September, [address] [address] September, Bilateral low back pain, with sciatica presence unspecified M54.5 [facility] [address] [place] [address] September, Body aches R52 and Upper respiratory infection, acute J06.[address] [address] September, [facility] [address] [address] September, Left wrist injury, initial encounter S69.92XA and Contusion of wrist, left S60.212A [address] [address] Aug, Depressive disorder, not elsewhere classified F32.9 [facility] [address] [place] [address] Jul, Seasonal allergic rhinitis, unspecified allergic rhinitis trigger J30.2 ; Rheumatoid arthritis flare M06.9 and Essential hypertension I10 [address] [address] [address] Jul, [place] [address] [address] Jul, Essential hypertension I10 [place] [id number] [place] [address]- 5650 Jul, Essential hypertension I10 ; Other chronic pain G89.29 ; Rheumatoid arthritis involving multiple sites, unspecified rheumatoid factor presence M06.9 and Insomnia due to medical condition G47.01 [address] [address] [address]- [address] Jul, [place] [address] [address] Jul, [place] [address] [address] Jun, [address] [address] Jun, 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 ; Essential hypertension I10 ; Chronic obstructive pulmonary disease, unspecified COPD type J44.9 ; Panic attacks F41.0 ; Hot flashes R23.2 ; Rheumatoid arthritis involving multiple sites, unspecified rheumatoid factor presence M06.9 ; Pain in thoracic spine M54.6 ; Other chronic pain G89.29 and Arthralgia, unspecified joint M25.50 [facility] [address] [place] [id number] [place] [address] May, Rheumatoid arthritis flare M06.9 [facility] [address] [place] [id number] [place] [address] May, Left lower quadrant pain R10.32 ; Abdominal pain in female R10.9 ; Constipation, unspecified constipation type K59.00 and Gastroesophageal reflux disease without esophagitis K21.9 [facility] [address] [address] Mar, Herpes genitalis in women A60.09 ; Bilateral impacted cerumen H61.23 and Injury of right ring finger, initial encounter S69.91XA [address] [address] Mar, [facility] [id number] [place] [address] 18841- 9125 Nov, Essential hypertension I10 ; Chronic hepatitis C B18.2 ; Arthralgia, unspecified joint M25.50 ; Chronic obstructive pulmonary disease, unspecified COPD type J44.9 ; Methamphetamine abuse F15.10 ; Simple chronic bronchitis J41.0 ; Hemorrhoids, unspecified hemorrhoid type K64.9 and Anxiety F41.9 [facility] [id number] [place] [address] Nov, [facility] [id number] [place] [address] 29594- 9114 Feb, Elevated glucose R73.09 [id number] [place] [address] 32464- 4130 Feb, Elevated glucose R73.09 [address] [id number] [place] [address] 30828- 08[address] Oct, [facility] [id number] [place] [address] 21187- 3377 Oct, [address] [place] [id number] [place] [address] 62671- 2264 Oct, Essential hypertension, benign 401.1 ; Chronic hepatitis C without mention of hepatic coma 070.54 ; Anxiety state, unspecified 300.00 ; Genital herpes 054.10 ; Methamphetamine abuse 305.70 and Excessive cerumen in both ear canals 380.4 [facility] [id number] [place] [address]39- 4641 Oct, [facility] [id number] [place] [address] 72898- 3094 Aug, [place] [id number] [place] [address] 55809- 6889 Aug, [facility] [id number] [place] [address] 18742- 4750 Jul, [place] [address] [place] [address] Jul, [facility] [place] [facility] [address] [id number] [place] [address]- 9[address] Jun, [facility] [place] [facility] [address] [id number] [place] [address]- 5046 Jun, [facility] [place] [facility] [address] [id number] [place] [address]- 1386 Jun, [facility] [place] [facility] [address] [id number] [place] [address]- 1359 Jun, [facility] [place] [facility] [address] [id number] [place] [address]- 3395 May, [facility] [place] [facility] [address] [id number] [place] [address]- 1289 May, [facility] [place] [facility] [address] [id number] [place] [address]- 0159 May, [facility] [place] [facility] [address] [id number] [place] [address]- 9035 May, [facility] [place] [facility] [address] [id number] [place] [address]- 9092 May, [facility] [place] [facility] [address] [facility] [id number] [place] [address]- 4667 May, [facility] [place] [facility] [address] [id number] [place] [address]- 9260 May, [facility] [place] [facility] [address] [id number] [place] [address]- 7619 Apr, [facility] [place] [facility] [address] [id number] [place] [address]- 1433 Apr, [facility] [place] [facility] [address] [id number] [place] [address]- 6653 Apr, [facility] [place] [facility] [address] [id number] [place] [address]- 9448 Dec, [facility] [place] [facility] [address] [id number] [place] [address]- 7588 Dec, [facility] [place] [facility] [address] [id number] [place] [address]- 4658 Nov, [facility] [place] [facility] [address] [id number] [place] [address]- 4012 Nov, [facility] [place] [facility] [address] [id number] [place] [address]- 3588 Nov, [facility] [place] [facility] [address] [id number] [place] [address]- 2250 Nov, [facility] [place] [facility] [address] [id number] [place] [address]- 3593 Nov, [facility] [place] [facility] [address] [id number] [place] [address]- 3920 Nov, [facility] [place] [facility] [address] [id number] [place] [address]- 3886 Nov, [facility] [place] [facility] [address] [id number] [place] [address]- 4143 Nov, [facility] [place] [facility] [address] [id number] [place] [address]- 6745 Nov, [facility] [place] [facility] [address] [id number] [place] [address]- 4004 Nov, [facility] [place] [facility] [address] [id number] [place] [address]- 4005 Nov, [facility] [place] [facility] [address] [id number] [place] [address]- 4795 Nov, [facility] [place] [facility] [address] [id number] [place] [address]- 9624 Oct, [facility] [place] [facility] [address] [id number] [place] [address]- 3597 Oct, [facility] [place] [facility] [address] [id number] [place] [address]- 3368 September, [facility] [place] [facility] [address] [id number] [place] [address]- 4938 September, [facility] [place] [facility] [address] [id number] [place] [address]- 0264 Aug, [facility] [place] [facility] [address] [id number] [place] [address]- 5267 Aug, [facility] [place] [facility] [address] [id number] [place] [address]- 3724 Aug, [facility] [place] [facility] [address] [id number] [place] [address]- 7575 Aug, [facility] [place] [facility] [address] [id number] [place] [address]- 2814 Aug, [facility] [place] [facility] [address] [id number] [place] [address]- 9910 Aug, [facility] [place] [facility] [address] [id number] [place] [address]- 9162 Aug, [facility] [place] [facility] [address] [id number] [place] [address]- 7668 Aug, [facility] [place] [facility] [address] [id number] [place] [address]- 1871 Aug, [facility] [place] [facility] [address] [id number] [place] [address]- 1821 Aug, [facility] [place] [facility] [address] [id number] [place] [address]- 6230 Aug, [facility] [place] [facility] [address] [id number] [place] [address]- 9903 Jul, [facility] [place] [facility] [address] [id number] [place] [address]- 3212 Jul, [facility] [place] [facility] [address] [id number] [place] [address] Jul, [facility] [place] [facility] [address] [id number] [place] [address]- 9307 05 Jul, 2013 [facility] [place] [facility] [address] [id number] [place] [address]- 5705 Jul, [facility] [place] [facility] [address] [id number] [place] [address]- 4581 Jul, [facility] [place] [facility] [address] [id number] [place] [address]- 9203 Jul, [facility] [place] [facility] [address] [id number] [place] [address]- 2743 24 Jun, 2013 [facility] [place] [facility] [address] [id number] [place] [address]- 6999 Jun, [facility] [place] [facility] [address] [id number] [place] [address]- 6820 Jun, [facility] [place] [facility] [address] [id number] [place] [address]- 5048 Jun, [facility] [place] [facility] [address] [id number] [place] [address]- 0163 Jun, [facility] [place] [facility] [address] [id number] [place] [address]- 6310 Jun, [facility] [place] [facility] [address] [id number] [place] [address]- 5418 Jun, [facility] [place] [facility] [address] [id number] [place] [address]- 3709 Jan, [facility] [place] [facility] [address] [id number] [place] [address]- 6028 Nov, [facility] [place] [facility] [address] [id number] [place] [address]- 7528 Nov, [facility] [place] [facility] [address] [id number] [place] [address]- 9720 Aug, [facility] [place] [facility] [address] [id number] [place] [address]- 3326 Jun, [facility] [address] [id number] [place] [address]- 8706 Jun, [facility] [address] [id number] [place] [address]- 6246 Jun, [facility] [address] [id number] [place] [address]- 4615 May, [facility] [address] [id number] [place] [address]- 3182 May, [facility] [address] [id number] [place] [address]- 0459 May, [facility] [address] [id number] [place] [address]- 2896 May, [facility] [address] [id number] [place] [address]- 3784 Apr, [facility] [address] [id number] [place] [address]- 5604 Apr, [facility] [address] [id number] [place] [address]- 6990 Apr, [facility] [address] [facility] [id number] [place] [address]- 4617 Apr, [facility] [address] [id number] [place] [address]- 9378 Mar, [facility] [address] [id number] [place] [address]- 9088 Feb, [facility] [address] [id number] [place] [address]- 6664 16 Dec, 2010 [facility] [place] [facility] [address] [id number] [place] [address]- 2546 Nov, [facility] [address] [id number] [place] [address]- 0276 Jul, [facility] [address] [address]- 5237 Apr, [facility] [address] [address]- 5657 Apr, [facility] [address] [address]- 7662 Apr, [facility] [address] [address]- 6321 Mar, [facility] [address] [address]- 8093 Mar, [facility] [address] [address]- 4128 Mar, [facility] [address] [address] Feb, [facility] [address] [place] [address] 122461- 3464 Feb, [facility] [address] [address]- 7889 Feb, [facility] [address] 7520 Feb, [facility] [address] [address] Dec, [facility] [address] [address]- 3146 Oct, [facility] [id number] Oct, IMMUNIZATIONS No Known Immunizations SOCIAL HISTORY Never Assessed REASON FOR VISIT eval for wart treated by prior physician and bilateral foot pain. Consult Dr. Sandoval;Reginald RT(R) PLAN OF CARE Activity Details Follow Up 4 Weeks Reason: VITAL SIGNS Height 60 in 2017-07-18 Blood pressure systolic 142 mmHg 2017-07-18 Blood pressure diastolic 100 mmHg 2017-07-18 MEDICATIONS Unknown Medications RESULTS No Results PROCEDURES [...]
--- OUTSIDE RECORDS SUMMARY | 2018-07-14 13:19 | XMS REPORT ---
Author Author JALIL FRYE Organization [facility] Address [address] [place] [address] Care Team Providers Care Adapted Physical Education Specialist Name Role Phone JALIL FRYE Unavailable PROBLEMS Type Condition ICD9-CM Code VCU08-YX Code Onset Dates Condition Status SNOMED Code Problem 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 Active 110680299642999 Problem Rheumatoid arthritis involving multiple sites, unspecified rheumatoid factor presence M06.9 Active 470583811 Problem Panic attacks F41.0 Active 896977986 Problem Other chronic pain G89.29 Active 85425103 Problem Porokeratosis Q82.8 Active 985116117 Problem Gastroesophageal reflux disease without esophagitis K21.9 Active 904554497 Problem Epilepsy, unspecified, not intractable, without status epilepticus G40.909 Active 276752945 Problem Depressive disorder, not elsewhere classified F32.9 Active 09759750 Problem Seasonal allergic rhinitis, unspecified allergic rhinitis trigger J30.2 Active 008552132 Problem Chronic hepatitis C B18.2 Active 173613201 Problem Essential hypertension I10 Active 99532545 Problem 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 Active 39471142 Problem Chronic obstructive pulmonary disease, unspecified COPD type J44.9 Active 81498825 Problem Methamphetamine abuse F15.10 Active 614386863 Problem Anxiety F41.9 Active 85035052 ALLERGIES Substance Reaction Event Type Date Status Macrobid Unknown Drug Allergy September, Active ENCOUNTERS Encounter Location Date Diagnosis [facility] [address] [id number] [address] Oct, Essential hypertension I10 ; Rheumatoid arthritis involving multiple sites, unspecified rheumatoid factor presence M06.9 and Chronic hepatitis C B18.2 [facility] [address] [id number], [place] [address] Oct, [facility] [id number] [place] [address]- [address] 15 Oct, 2017 Fissure in skin of foot R23.4 [place] [address] [address]- [address] 07 Oct, 2017 Essential hypertension I10 [place] [id number] [place] [address]70- 2255 Oct, 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 [place] [address] [address]61- [address] September, [place] [address] [address]- 9678 September, Pain in right ankle and joints of right foot M25.571 and Other chronic pain G89.29 [place] [address] [address]- [address] Aug, Essential hypertension I10 ; Rheumatoid arthritis involving multiple sites, unspecified rheumatoid factor presence M06.9 ; Gastroesophageal reflux disease without esophagitis K21.9 ; Anxiety F41.9 ; 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 and Dermatitis L30.9 [place] [id number] [place] [address] 89474- 1003 Aug, Onychomycosis B35.1 ; Peroneal tendinitis, unspecified laterality M76.70 and Porokeratosis Q82.8 [place] [id number] [place] [address] 37780- 5954 Jul, Porokeratosis Q82.8 ; Hyperhidrosis L74.519 and Callus of foot L84 [place] [id number] [place] [address] 42626- 3185 Apr, [place] [address] [address]655- 1598 Apr, [place] [id number] [place] [address] 79158- 2190 Mar, Well woman exam (no gynecological exam) Z00.00 ; Plantar wart B07.0 ; Pain of left foot M79.672 ; Pain in right foot M79.671 and Rheumatoid arthritis involving multiple sites, unspecified rheumatoid factor presence M06.9 [place] [address] [address]- [address] Nov, Bilateral low back pain, with sciatica presence unspecified M54.5 [place] [address] [address]28- 5695 Oct, Chronic obstructive pulmonary disease, unspecified COPD type J44.9 [place] [address] [address]- 39[address] September, [address] [address] September, Bilateral low back pain, with sciatica presence unspecified M54.5 [facility] [address] [place] [address] September, Body aches R52 and Upper respiratory infection, acute J06.[address] [address] September, [facility] [address] [address] September, Left wrist injury, initial encounter S69.92XA and Contusion of wrist, left S60.212A [address] [address] Aug, Depressive disorder, not elsewhere classified F32.9 [facility] [address] [place] [address] Jul, Seasonal allergic rhinitis, unspecified allergic rhinitis trigger J30.2 ; Rheumatoid arthritis flare M06.9 and Essential hypertension I10 [address] [address] Jul, [place] [address] [address] Jul, Essential hypertension I10 [place] [id number] [place] [address]- 8618 Jul, Essential hypertension I10 ; Other chronic pain G89.29 ; Rheumatoid arthritis involving multiple sites, unspecified rheumatoid factor presence M06.9 and Insomnia due to medical condition G47.01 [place] [address] [address]- [address] Jul, [place] [address] [address]- 7862 Jul, [place] [address] [address] Jun, [place] [address] [address] Jun, 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 ; Essential hypertension I10 ; Chronic obstructive pulmonary disease, unspecified COPD type J44.9 ; Panic attacks F41.0 ; Hot flashes R23.2 ; Rheumatoid arthritis involving multiple sites, unspecified rheumatoid factor presence M06.9 ; Pain in thoracic spine M54.6 ; Other chronic pain G89.29 and Arthralgia, unspecified joint M25.50 [facility] [id number] [place] [address] May, Rheumatoid arthritis flare M06.9 [facility] [address] [id number] [place] [address] May, Left lower quadrant pain R10.32 ; Abdominal pain in female R10.9 ; Constipation, unspecified constipation type K59.00 and Gastroesophageal reflux disease without esophagitis K21.9 [facility] [address] [address] Mar, Herpes genitalis in women A60.09 ; Bilateral impacted cerumen H61.23 and Injury of right ring finger, initial encounter S69.91XA [address] [address] Mar, [facility] [id number] [place] [address]99- 8[address] Nov, Essential hypertension I10 ; Chronic hepatitis C B18.2 ; Arthralgia, unspecified joint M25.50 ; Chronic obstructive pulmonary disease, unspecified COPD type J44.9 ; Methamphetamine abuse F15.10 ; Simple chronic bronchitis J41.0 ; Hemorrhoids, unspecified hemorrhoid type K64.9 and Anxiety F41.9 [facility] [id number] [place] [address] Nov, [facility] [address] [address] Feb, Elevated glucose R73.09 [place] [address] [address]- 40[address] Feb, Elevated glucose R73.09 [facility] [id number] [place] [address]43- 7817 Oct, [facility] [id number] [place] [address] 98896- 9010 Oct, [facility] [id number] [place] [address] 15229- 6384 Oct, Essential hypertension, benign 401.1 ; Chronic hepatitis C without mention of hepatic coma 070.54 ; Anxiety state, unspecified 300.00 ; Genital herpes 054.10 ; Methamphetamine abuse 305.70 and Excessive cerumen in both ear canals 380.4 [facility] [id number] [place] [address] 8[address]- 5799 Oct, [facility] [address] [address]- 15[address] Aug, [facility] [id number] [place] [address] 74757- 3259 Aug, [facility] [id number] [place] [address] 46581- 5804 Jul, [facility] [place] [facility] [address] [id number] [place] [address]- 9183 Jul, [facility] [place] [facility] [address] [id number] [place] [address]- 9704 Jun, [facility] [place] [facility] [address] [id number] [place] [address]- 7838 Jun, [facility] [place] [facility] [address] [id number] [place] [address]- 1974 Jun, [facility] [place] [facility] [address] [id number] [place] [address]- 0548 Jun, [facility] [place] [facility] [address] [id number] [place] [address]- 6760 May, [facility] [place] [facility] [address] [id number] [place] [address]- 6400 May, [facility] [place] [facility] [address] [id number] [place] [address]- 9507 May, [facility] [place] [facility] [address] [id number] [place] [address]- 4177 May, [facility] [place] [facility] [address] [id number] [place] [address]- 3181 May, [facility] [place] [facility] [address] [id number] [place] [address]- 8244 May, [facility] [place] [facility] [address] [id number] [place] [address]- 4683 May, [facility] [place] [facility] [address] [id number] [place] [address]- 1684 Apr, [facility] [place] [facility] [address] [id number] [place] [address]- 5716 Apr, [facility] [place] [facility] [address] [id number] [place] [address]- 6271 Apr, [facility] [place] [facility] [address] [id number] [place] [address]- 7320 Dec, [facility] [place] [facility] [address] [id number] [place] [address]- 4296 Dec, [facility] [place] [facility] [address] [id number] [place] [address]- 9642 Nov, [facility] [place] [facility] [address] [id number] [place] [address]- 0196 Nov, [facility] [place] [facility] [address] [id number] [place] [address]- 4672 Nov, [facility] [place] [facility] [address] [id number] [place] [address]- 9675 Nov, [facility] [place] [facility] [address] [id number] [place] [address]- 7857 Nov, [facility] [place] [facility] [address] [id number] [place] [address]- 2840 Nov, [facility] [place] [facility] [address] [id number] [place] [address]- 8216 Nov, [facility] [place] [facility] [address] [id number] [place] [address]- 7224 Nov, [facility] [place] [facility] [address] [id number] [place] [address]- 0295 Nov, [facility] [place] [facility] [address] [id number] [place] [address]- 7880 Nov, [facility] [place] [facility] [address] [id number] [place] [address]- 0518 Nov, [facility] [place] [facility] [address] [id number] [place] [address]- 0016 Nov, [facility] [place] [facility] [address] [id number] [place] [address]- 8702 Oct, [facility] [place] [facility] [address] [id number] [place] [address]- 6764 Oct, [facility] [place] [facility] [address] [id number] [place] [address]- 7845 September, [facility] [place] [facility] [address] [id number] [place] [address]- 9800 September, [facility] [place] [facility] [address] [id number] [place] [address]- 4640 Aug, [facility] [place] [facility] [address] [id number] [place] [address]- 4654 Aug, [facility] [place] [facility] [address] [id number] [place] [address]- 9795 Aug, [facility] [place] [facility] [address] [id number] [place] [address]- 6326 Aug, [facility] [place] [facility] [address] [id number] [place] [address]- 5479 Aug, [facility] [place] [facility] [address] [id number] [place] [address]- 7931 Aug, [facility] [place] [facility] [address] [id number] [place] [address]- 3020 Aug, [facility] [place] [facility] [address] [id number] [place] [address]- 5158 Aug, [facility] [place] [facility] [address] [id number] [place] [address]- 7975 Aug, [facility] [place] [facility] [address] [id number] [place] [address]- 5891 Aug, [facility] [place] [facility] [address] [id number] [place] [address]- 1328 Aug, [facility] [place] [facility] [address] [id number] [place] [address]- 0807 Jul, [facility] [place] [facility] [address] [id number] [place] [address]- 3483 Jul, [facility] [place] [facility] [address] [id number] [place] [address]- 7059 Jul, [facility] [place] [facility] [address] [id number] [place] [address]- 8768 Jul, [facility] [place] [facility] [address] [id number] [place] [address]- 7161 Jul, [facility] [place] [facility] [address] [id number] [place] [address]- 9878 Jul, [facility] [place] [facility] [address] [id number] [place] [address]- 0961 Jul, [facility] [place] [facility] [address] [id number] [place] [address]- 9639 24 Jun, 2013 [facility] [place] [facility] [address] [id number] [place] [address]- 7271 Jun, [facility] [place] [facility] [address] [facility] [id number] [place] [address]- 2434 Jun, [facility] [place] [facility] [address] [facility] [id number] [place] [address]- 4086 Jun, [facility] [place] [facility] [address] [facility] [id number] [place] [address]- 2854 Jun, [facility] [place] [facility] [address] [facility] [id number] [place] [address]- 7623 Jun, [facility] [place] [facility] [address] [facility] [id number] [place] [address]- 6726 Jun, [facility] [place] [facility] [address] [facility] [id number] [place] [address]- 3769 Jan, [facility] [place] [facility] [address] [id number] [place] [address]- 0988 Nov, [facility] [place] [facility] [address] [facility] [id number] [place] [address]- 7062 Nov, [facility] [place] [facility] [address] [facility] [id number] [place] [address]- 6381 Aug, [facility] [place] [facility] [address] [id number] [place] [address]- 4079 Jun, [facility] [place] [facility] [address] [id number] [place] [address]- 0706 Jun, [facility] [place] [facility] [address] [id number] [place] [address]- 4237 Jun, [facility] [place] [facility] [address] [id number] [place] [address]- 2294 May, [facility] [place] [facility] [address] [id number] [place] [address]- 0622 May, [facility] [place] [facility] [address] [id number] [place] [address]- 7359 May, [facility] [place] [facility] [address] [id number] [place] [address]- 3718 May, [facility] [address] [id number] [place] [address]- 7275 Apr, [facility] [place] [facility] [address] [id number] [place] [address]- 5192 Apr, [facility] [place] [facility] [address] [id number] [place] [address]- 2661 Apr, [facility] [place] [facility] [address] [id number] [place] [address]- 4425 Apr, [facility] [place] [facility] [address] [id number], [place] [address]- 5584 Mar, [facility] [place] [facility] [address] [id number] [place] [address]- 3826 Feb, [facility] [place] [facility] [address] [id number] [place] [address]- 2546 16 Dec, 2010 [facility] [place] [facility] [address] [id number] [place] [address]- 3113 Nov, [facility] [place] [facility] [id number] [address]- 1385 Jul, [facility] [address] [place] [address]- 0135 Apr, [facility] [address] [address] Apr, [facility] [address] [place] [address]- 4481 Apr, [facility] [id number] [place] [address] 13[address]- 9642 Mar, [facility] [id number] [place] [address] 637745- 7333 Mar, [facility] [id number] [place] [address] 41584- 5054 Mar, [facility] [id number] [place] [address] 27529- 7101 Feb, [facility] [address], [place] [address]- 9526 Feb, [facility] [id number] [place] [address] 18385- 3033 Feb, [facility] [address] [address]- 6384 Feb, [facility] [address] [place] [address]- 1045 Dec, [facility] [address] [place] [address]- 5409 Oct, [facility] [address] [place] [address]- 7509 Oct, IMMUNIZATIONS No Known Immunizations SOCIAL HISTORY Never Assessed REASON FOR VISIT Right ankle pain WB-MA PLAN OF CARE Activity Details Follow Up prn Reason: VITAL SIGNS Height 60 in 2017-09-11 Weight 179 lbs 2017-09-11 Temperature 98.1 degrees Fahrenheit 2017-09-11 Heart Rate 84 bpm 2017-09-11 Respiratory Rate 20 2017-09-11 BMI 34.95 kg/m2 2017-09-11 Blood pressure systolic 136 mmHg 2017-09-11 Blood pressure diastolic 88 mmHg 2017-09-11 MEDICATIONS Medication Instructions Dosage Frequency Start Date End Date Duration Status Tramadol HCl 50 MG Orally every 6 hrs 1 tablet as needed 6h Active Lisinopril 40 mg Orally Once a day 1 tablet 24h Nov, Active Hydrochlorothiazide 25 MG Orally Once a day 1 tablet 24h Jul, 30 day(s) Active Atenolol 50 [...] 1 tablet 12h Oct, 90 days Active RESULTS Name Result Date Reference Range Xray : Ankle, Right 2 views (IN HOUSE) 2017-09-11 PROCEDURES Procedure Date Ordered Result Body Site X-RAY EXAM OF ANKLE September 11, 2017 INSTRUCTIONS MEDICATIONS ADMINISTERED No Known Medications [...]
--- OUTSIDE RECORDS SUMMARY | 2018-07-14 13:20 | XMS REPORT ---
Author Author JAYLAN ALBERT [facility] Address [address] [place] [address] Care Team Providers Care Network Field Engineer Name Role Phone ALBERT TIAN Unavailable PROBLEMS Type Condition ICD9-CM Code WYO22-MG Code Onset Dates Condition Status SNOMED Code Problem 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 Active [id number] Problem Rheumatoid arthritis involving multiple sites, unspecified rheumatoid factor presence M06.9 Active 968844083 Problem Panic attacks F41.0 Active 844780631 Problem Other chronic pain G89.29 Active 16800433 Problem Porokeratosis Q82.8 Active 109661948 Problem Gastroesophageal reflux disease without esophagitis K21.9 Active 826419639 Problem Epilepsy, unspecified, not intractable, without status epilepticus G40.909 Active 543054781 Problem Depressive disorder, not elsewhere classified F32.9 Active 18667210 Problem Seasonal allergic rhinitis, unspecified allergic rhinitis trigger J30.2 Active 252306258 Problem Chronic hepatitis C B18.2 Active 510594902 Problem Essential hypertension I10 Active 80015336 Problem 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 Active 51842629 Problem Chronic obstructive pulmonary disease, unspecified COPD type J44.9 Active 73927471 Problem Methamphetamine abuse F15.10 Active 073588849 Problem Anxiety F41.9 Active 61183349 ALLERGIES No Information ENCOUNTERS Encounter Location Date Diagnosis [facility] [id number] [address] Oct, [facility] [address] [address] 07 Oct, 2017 Essential hypertension I10 [facility] [address] [address] Oct, 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 [facility] [address] [address] September, [place] [address] [address] September, Pain in right ankle and joints of right foot M25.571 and Other chronic pain G89.29 [place] [address] [address] Aug, Essential hypertension I10 ; Rheumatoid arthritis involving multiple sites, unspecified rheumatoid factor presence M06.9 ; Gastroesophageal reflux disease without esophagitis K21.9 ; Anxiety F41.9 ; 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 and Dermatitis L30.9 [place] [address] [address] Aug, Onychomycosis B35.1 ; Peroneal tendinitis, unspecified laterality M76.70 and Porokeratosis Q82.8 [place] [address] [address] Jul, Porokeratosis Q82.8 ; Hyperhidrosis L74.519 and Callus of foot L84 [place] [address] [address] Apr, [place] [address] [address] Apr, [place] [address] [address] Mar, Well woman exam (no gynecological exam) Z00.00 ; Plantar wart B07.0 ; Pain of left foot M79.672 ; Pain in right foot M79.671 and Rheumatoid arthritis involving multiple sites, unspecified rheumatoid factor presence M06.9 [place] [address] [address] Nov, Bilateral low back pain, with sciatica presence unspecified M54.5 [place] [address] [address] Oct, Chronic obstructive pulmonary disease, unspecified COPD type J44.9 [place] [address] [address] September, [place] [address] [address] September, Bilateral low back pain, with sciatica presence unspecified M54.5 [facility] [address] [address] September, Body aches R52 and Upper respiratory infection, acute J06.[address] [address] September, [facility] [place] [address] [address] September, Left wrist injury, initial encounter S69.92XA and Contusion of wrist, left S60.212A [place] [address] [address] Aug, Depressive disorder, not elsewhere classified F32.9 [facility] [address] [address] Jul, Seasonal allergic rhinitis, unspecified allergic rhinitis trigger J30.2 ; Rheumatoid arthritis flare M06.9 and Essential hypertension I10 [place] [id number] [place] [address] Jul, [place] [address] [address] Jul, Essential hypertension I10 [place] [address] [address] Jul, Essential hypertension I10 ; Other chronic pain G89.29 ; Rheumatoid arthritis involving multiple sites, unspecified rheumatoid factor presence M06.9 and Insomnia due to medical condition G47.01 [place] [address] [address] Jul, [place] [id number] [place] [address] Jul, [place] [address] [address] Jun, [place] [id number] [place] [address] 07 Jun, 2016 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 ; Essential hypertension I10 ; Chronic obstructive pulmonary disease, unspecified COPD type J44.9 ; Panic attacks F41.0 ; Hot flashes R23.2 ; Rheumatoid arthritis involving multiple sites, unspecified rheumatoid factor presence M06.9 ; Pain in thoracic spine M54.6 ; Other chronic pain G89.29 and Arthralgia, unspecified joint M25.50 [facility] [place] [id number] [place] [address] May, Rheumatoid arthritis flare M06.9 [facility] [place] [id number] [place] [address] May, Left lower quadrant pain R10.32 ; Abdominal pain in female R10.9 ; Constipation, unspecified constipation type K59.00 and Gastroesophageal reflux disease without esophagitis K21.9 [facility] [place] [id number] [place] [address] Mar, Herpes genitalis in women A60.09 ; Bilateral impacted cerumen H61.23 and Injury of right ring finger, initial encounter S69.91XA [place] [address] [place] [address] Mar, [address] [address] Nov, Essential hypertension I10 ; Chronic hepatitis C B18.2 ; Arthralgia, unspecified joint M25.50 ; Chronic obstructive pulmonary disease, unspecified COPD type J44.9 ; Methamphetamine abuse F15.10 ; Simple chronic bronchitis J41.0 ; Hemorrhoids, unspecified hemorrhoid type K64.9 and Anxiety F41.9 [facility] [address] [address] Nov, [facility] [id number] [place] [address] Feb, Elevated glucose R73.09 [facility] [id number] [place] [address] Feb, Elevated glucose R73.09 [facility] [id number] [place] [address] Oct, [facility] [id number] [place] [address] Oct, [facility] [id number] [place] [address] Oct, Essential hypertension, benign 401.1 ; Chronic hepatitis C without mention of hepatic coma 070.54 ; Anxiety state, unspecified 300.00 ; Genital herpes 054.10 ; Methamphetamine abuse 305.70 and Excessive cerumen in both ear canals 380.4 [facility] [id number] [place] [address] Oct, [facility] [id number] [place] [address] Aug, [facility] [id number] [place] [address] Aug, [facility] [address] [place] [address] Jul, [facility] [id number] [place] [address] Jul, [facility] [id number] [place] [address]- 2[address] Jun, [facility] [id number] [place] [address] Jun, [facility] [address] [address] [address] Jun, [facility] [address] [id number] [place] [address] Jun, [facility] [address] [id number] [place] [address]- [address] May, [facility] [address] [id number] [place] [address]- 5[address] May, [facility] [address] [id number] [place] [address] 140[address] May, [facility] [address] [id number] [place] [address]- [address] May, [facility] [address] [id number] [place] [address]- [address] May, [facility] [address] [id number] [place] [address]- [address] May, [facility] [address] [id number] [place] [address]- 6[address] May, [facility] [address] [id number] [place] [address]- 9[address] Apr, [facility] [address] [id number] [place] [address]- [address] Apr, [facility] [place] [facility] [address] [id number] [place] [address]- [address] Apr, [facility] [place] [facility] [address] [id number] [place] [address]- 0960 Dec, [facility] [place] [facility] [address] [id number] [place] [address]- 7603 Dec, [facility] [place] [facility] [address] [id number] [place] [address]- 1538 Nov, [facility] [place] [facility] [address] [id number] [place] [address]- 57[address] Nov, [facility] [place] [facility] [address] [id number] [place] [address]- 9710 Nov, [facility] [place] [facility] [address] [id number] [place] [address]- 1714 Nov, [facility] [place] [facility] [address] [id number] [place] [address]- 1318 Nov, [facility] [place] [facility] [address] [id number] [place] [address]- 97[address] Nov, [facility] [place] [facility] [address] [id number] [place] [address]- 7723 Nov, [facility] [place] [facility] [address] [id number] [place] [address]- 0339 Nov, [facility] [place] [facility] [address] [id number] [place] [address]- 1928 Nov, [facility] [place] [facility] [address] [id number] [place] [address]- 2576 Nov, [facility] [place] [facility] [address] [id number] [place] [address]- 9741 Nov, [facility] [place] [facility] [address] [id number] [place] [address]- 7196 Nov, [facility] [place] [facility] [address] [id number] [place] [address]- 1606 Oct, [facility] [place] [facility] [address] [id number] [place] [address]- 8884 Oct, [facility] [place] [facility] [address] [id number] [place] [address]- 56[address] September, [facility] [place] [facility] [address] [id number] [place] [address]- 1256 September, [facility] [place] [facility] [address] [id number] [place] [address]- 1717 Aug, [facility] [place] [facility] [address] [id number] [place] [address]- 4761 23 Aug, 2013 [facility] [place] [facility] [address] [id number] [place] [address]- 9490 Aug, [facility] [place] [facility] [address] [id number] [place] [address]- 0451 17 Aug, 2013 [facility] [place] [facility] [address] [id number] [place] [address]- 6225 Aug, [facility] [place] [facility] [address] [id number] [place] [address]- 9083 14 Aug, 2013 [facility] [place] [facility] [address] [id number] [place] [address]- 6880 Aug, [facility] [place] [facility] [address] [id number] [place] [address]- 4107 Aug, [facility] [place] [facility] [address] [id number] [place] [address]- 7041 Aug, [facility] [place] [facility] [address] [id number] [place] [address]- 7776 Aug, [facility] [place] [facility] [address] [id number] [place] [address]- 1646 08 Aug, 2013 [facility] [place] [facility] [address] [id number] [place] [address]- 8601 Jul, [facility] [place] [facility] [address] [id number] [place] [address]- 7561 Jul, [facility] [place] [facility] [address] [id number] [place] [address]- 3784 12 Jul, 2013 [facility] [place] [facility] [address] [id number] [place] [address]- 8327 05 Jul, 2013 [facility] [place] [facility] [address] [id number] [place] [address]- 6863 05 Jul, 2013 [facility] [place] [facility] [address] [id number] [place] [address]- 3985 03 Jul, 2013 [facility] [place] [facility] [address] [id number] [place] [address]- 5424 Jul, [facility] [place] [facility] [address] [id number] [place] [address]- 5356 Jun, [facility] [place] [facility] [address] [id number] [place] [address] 2546 Jun, [facility] [place] [facility] [address] [id number] [place] [address] 2546 Jun, [facility] [place] [facility] [address] [id number] [place] [address]- 2544 Jun, [facility] [place] [facility] [address] [id number] [place] [address]- 4706 Jun, [facility] [place] [facility] [address] [id number] [place] [address]- 2186 Jun, [facility] [place] [facility] [address] [id number] [place] [address]- 6721 Jun, [facility] [place] [facility] [address] [id number] [place] [address]- 7593 Jan, [facility] [place] [facility] [address] [id number] [place] [address]- 6696 Nov, [facility] [place] [facility] [address] [id number] [place] [address]- 5103 Nov, [facility] [place] [facility] [address] [id number] [place] [address]- 0242 Aug, [facility] [place] [facility] [address] [id number] [place] [address]- 1526 Jun, [facility] [place] [facility] [address] [id number] [place] [address]- 7166 Jun, [facility] [place] [facility] [address] [id number] [place] [address]- 0076 Jun, [facility] [place] [facility] [address] [id number] [place] [address]- 0767 31 May, 2011 [facility] [address] [id number] [place] [address]- 5769 May, [facility] [place] [facility] [address] [id number] [place] [address]- 1399 17 May, 2011 [facility] [address] [id number] [place] [address]- 8943 May, [facility] [address] [id number] [place] [address]- 4705 22 Apr, 2011 [facility] [address] [id number] [place] [address]- 5765 Apr, [facility] [place] [facility] [address] [id number] [place] [address]- 7986 Apr, [facility] [address] [id number] [place] [address]- 7213 Apr, [facility] [place] [facility] [address] [id number] [place] [address]- 9073 Mar, [facility] [address] [id number] [place] [address]- 3558 13 Feb, 2011 [facility] [address] [id number] [place] [address]- 7424 16 Dec, 2010 [facility] [address] [id number] [place] [address]- 8957 Nov, [facility] [place] [facility] [address] [id number] [place] [address]- 7471 15 Jul, 2010 [facility] [place] [facility] [address] [id number] [place] [address]- 4063 30 Apr, 2010 [facility] [place] [facility] [address] [id number] [place] [address]- 1611 29 Apr, 2010 [facility] [place] [facility] [address] [id number] [place] [address]- 2353 09 Apr, 2010 [facility] [place] [facility] [address] [facility] [id number] [address]- [address] Mar, [facility] [address] [facility] [id number] [address]- 117[address] Mar, [facility] [address] [facility] [id number] [address]- 2040 Mar, [facility] [address] [id number] [address]- [address]679 Feb, [facility] [address] [facility] [id number] [address]- [address] Feb, [facility] [address] [facility] [id number] [address]- 6[address] Feb, [facility] [address] [address]- 2635 Feb, [facility] [address] [address]- 4746 Dec, [facility] [id number] [address]- 7459 Oct, [facility] [id number] [address]- 8727 Oct, IMMUNIZATIONS No Known Immunizations SOCIAL HISTORY Never Assessed REASON FOR VISIT Mammogram chart update PLAN OF CARE VITAL SIGNS MEDICATIONS Unknown [...]
--- OUTSIDE RECORDS SUMMARY | 2018-07-14 13:20 | XMS REPORT ---
Author Author JAYLAN ALBERT [facility] Address [address] [place] [address] Care Team Providers Care Cardroom Plastic Card Grader Name Role Phone ALBERT TIAN Unavailable PROBLEMS Type Condition ICD9-CM Code SFM93-XD Code Onset Dates Condition Status SNOMED Code Problem 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 Active 832140368359271 Problem Rheumatoid arthritis involving multiple sites, unspecified rheumatoid factor presence M06.9 Active 891456984 Problem Panic attacks F41.0 Active 292458844 Problem Other chronic pain G89.29 Active 60301228 Problem Porokeratosis Q82.8 Active 809574943 Problem Gastroesophageal reflux disease without esophagitis K21.9 Active 655017243 Problem Epilepsy, unspecified, not intractable, without status epilepticus G40.909 Active 399362451 Problem Depressive disorder, not elsewhere classified F32.9 Active 66621743 Problem Seasonal allergic rhinitis, unspecified allergic rhinitis trigger J30.2 Active 133923150 Problem Chronic hepatitis C B18.2 Active 768538848 Problem Essential hypertension I10 Active 92643662 Problem 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 Active 64897616 Problem Chronic obstructive pulmonary disease, unspecified COPD type J44.9 Active 19412946 Problem Methamphetamine abuse F15.10 Active 293105882 Problem Anxiety F41.9 Active 84680704 ALLERGIES Substance Reaction Event Type Date Status Macrobid Unknown Drug Allergy Mar, Active ENCOUNTERS Encounter Location Date Diagnosis [facility] [address] [facility] [id number], [place] [address] Oct, [facility] [address] [facility] [id number], [place] [address] September, [facility] [address] [facility] [id number], [place] [address] September, Pain in right ankle and joints of right foot M25.571 and Other chronic pain G89.[address] [address] Aug, Essential hypertension I10 ; Rheumatoid arthritis involving multiple sites, unspecified rheumatoid factor presence M06.9 ; Gastroesophageal reflux disease without esophagitis K21.9 ; Anxiety F41.9 ; 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 and Dermatitis L30.[address] [address] Aug, Onychomycosis B35.1 ; Peroneal tendinitis, unspecified laterality M76.70 and Porokeratosis Q82.[address] [address] Jul, Porokeratosis Q82.8 ; Hyperhidrosis L74.519 and Callus of foot L84 [address] [address] Apr, [address] [address] Apr, [address] [address] Mar, Well woman exam (no gynecological exam) Z00.00 ; Plantar wart B07.0 ; Pain of left foot M79.672 ; Pain in right foot M79.671 and Rheumatoid arthritis involving multiple sites, unspecified rheumatoid factor presence M06.9 [place] [id number] [place] [address] Nov, Bilateral low back pain, with sciatica presence unspecified M54.[address] [address] Oct, Chronic obstructive pulmonary disease, unspecified COPD type J44.[address] [address] September, [place] [id number] [address] September, Bilateral low back pain, with sciatica presence unspecified M54.5 [facility] [address] [address] September, Body aches R52 and Upper respiratory infection, acute J06.9 [facility] [address] [place] [address] September, [facility] [address] [address] September, Left wrist injury, initial encounter S69.92XA and Contusion of wrist, left S60.212A [place] [address] [address] Aug, Depressive disorder, not elsewhere classified F32.9 [facility] [address] [address] Jul, Seasonal allergic rhinitis, unspecified allergic rhinitis trigger J30.2 ; Rheumatoid arthritis flare M06.9 and Essential hypertension I10 [place] [address] [address] Jul, [place] [address] [address] Jul, Essential hypertension I10 [place] [address] [address] Jul, Essential hypertension I10 ; Other chronic pain G89.29 ; Rheumatoid arthritis involving multiple sites, unspecified rheumatoid factor presence M06.9 and Insomnia due to medical condition G47.01 [place] [address] [address] Jul, [place] [address] [address] Jul, [place] [address] [address] Jun, [place] [id number] [place] [address] Jun, 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 ; Essential hypertension I10 ; Chronic obstructive pulmonary disease, unspecified COPD type J44.9 ; Panic attacks F41.0 ; Hot flashes R23.2 ; Rheumatoid arthritis involving multiple sites, unspecified rheumatoid factor presence M06.9 ; Pain in thoracic spine M54.6 ; Other chronic pain G89.29 and Arthralgia, unspecified joint M25.50 [facility] [address] [place] [address] May, Rheumatoid arthritis flare M06.9 [facility] [address] [address] May, Left lower quadrant pain R10.32 ; Abdominal pain in female R10.9 ; Constipation, unspecified constipation type K59.00 and Gastroesophageal reflux disease without esophagitis K21.9 [facility] [address] [address] Mar, Herpes genitalis in women A60.09 ; Bilateral impacted cerumen H61.23 and Injury of right ring finger, initial encounter S69.91XA [place] [id number] [place] [address] Mar, [address] [address] Nov, Essential hypertension I10 ; Chronic hepatitis C B18.2 ; Arthralgia, unspecified joint M25.50 ; Chronic obstructive pulmonary disease, unspecified COPD type J44.9 ; Methamphetamine abuse F15.10 ; Simple chronic bronchitis J41.0 ; Hemorrhoids, unspecified hemorrhoid type K64.9 and Anxiety F41.9 [facility] [place] [id number] [place] [address] Nov, [address] [address] Feb, Elevated glucose R73.09 [facility] [address] Feb, Elevated glucose R73.09 [facility] [id number] [place] [address] Oct, [facility] [id number] [place] [address] Oct, [facility] [address] [place] [id number] [place] [address] Oct, Essential hypertension, benign 401.1 ; Chronic hepatitis C without mention of hepatic coma 070.54 ; Anxiety state, unspecified 300.00 ; Genital herpes 054.10 ; Methamphetamine abuse 305.70 and Excessive cerumen in both ear canals 380.4 [facility] [address] [place] [address] Oct, [facility] [address] [place] [id number] [place] [address] Aug, [facility] [address] [place] [id number] [place] [address] Aug, [facility] [address] [place] [id number] [place] [address] Jul, [facility] [address] [address] Jul, [facility] [id number] [place] [address] Jun, [facility] [id number] [place] [address] Jun, [facility] [address] [place] [id number] [place] [address] Jun, [facility] [address], [place] [address] Jun, [facility] [address] [place] [id number] [address] May, [facility] [address] [id number] [place] [address] May, [facility] [address] [id number] [place] [address] May, [facility] [address] [id number] [place] [address] May, [facility] [address] [id number] [place] [address] May, [facility] [address] [id number] [place] [address] May, [facility] [address] [id number] [place] [address]- [address] May, [facility] [address] [id number] [place] [address] Apr, [facility] [address] [id number] [place] [address]- [address] Apr, [facility] [address] [id number] [place] [address]- [address] Apr, [facility] [address] [id number] [place] [address]- [address] Dec, [facility] [place] [facility] [address] [id number] [place] [address]- [address] Dec, [facility] [address] [id number] [place] [address]- [address] Nov, [facility] [place] [facility] [address] [id number] [place] [address]- [address] Nov, [facility] [place] [facility] [address] [id number] [place] [address]- [address] Nov, [facility] [place] [facility] [address] [id number] [place] [address]- 1998 Nov, [facility] [place] [facility] [address] [id number] [place] [address]- 97[address] Nov, [facility] [place] [facility] [address] [id number] [place] [address]- [address] Nov, [facility] [place] [facility] [address] [id number] [place] [address]- 6[address] Nov, [facility] [place] [facility] [address] [id number] [place] [address]- [address] Nov, [facility] [place] [facility] [address] [id number] [place] [address]- [address] Nov, [facility] [place] [facility] [address] [id number] [place] [address]- 115[address] Nov, [facility] [place] [facility] [address] [id number] [place] [address]- 5468 Nov, [facility] [place] [facility] [address] [id number] [place] [address]- 69[address] Nov, [facility] [place] [facility] [address] [id number] [place] [address]- 20[address] Oct, [facility] [place] [facility] [address] [id number] [place] [address]- 365[address] Oct, [facility] [place] [facility] [address] [id number] [place] [address]- 9[address] September, [facility] [place] [facility] [address] [id number] [place] [address]- 6[address] September, [facility] [place] [facility] [address] [id number] [place] [address]- 5[address] Aug, [facility] [place] [facility] [address] [id number] [place] [address]- 8512 Aug, [facility] [place] [facility] [address] [id number] [place] [address]- 0982 Aug, [facility] [place] [facility] [address] [id number] [place] [address]- 4[address] 17 Aug, 2013 [facility] [place] [facility] [address] [id number] [place] [address]- [address] 14 Aug, 2013 [facility] [place] [facility] [address] [id number] [place] [address]- [address] 14 Aug, 2013 [facility] [place] [facility] [address] [id number] [place] [address]- 7114 10 Aug, 2013 [facility] [place] [facility] [address] [id number] [place] [address]- 5654 10 Aug, 2013 [facility] [place] [facility] [address] [id number] [place] [address]- 9826 Aug, [facility] [place] [facility] [address] [id number] [place] [address]- [address] 08 Aug, 2013 [facility] [place] [facility] [address] [id number] [place] [address]- 30[address] Aug, [facility] [place] [facility] [address] [id number] [place] [address]- 1787 Jul, [facility] [place] [facility] [address] [id number] [place] [address]- 1569 Jul, [facility] [place] [facility] [address] [facility] [id number] [place] [address]- [address] Jul, [facility] [place] [facility] [address] [id number] [place] [address]- 8483 Jul, [facility] [place] [facility] [address] [id number] [place] [address]- 4457 Jul, [facility] [place] [facility] [address] [id number] [place] [address]- 1108 Jul, [facility] [place] [facility] [address] [id number] [place] [address]- 7999 Jul, [facility] [place] [facility] [address] [id number] [place] [address]- 36[address] 24 Jun, 2013 [facility] [place] [facility] [address] [id number] [place] [address]- 49[address] Jun, [facility] [place] [facility] [address] [id number] [place] [address]- 8596 Jun, [facility] [place] [facility] [address] [id number] [place] [address] 2546 Jun, [facility] [place] [facility] [address] [id number] [place] [address]- 4126 Jun, [facility] [place] [facility] [address] [id number] [place] [address]- 2546 Jun, [facility] [place] [facility] [address] [id number] [place] [address]- 7566 Jun, [facility] [place] [facility] [address] [id number] [place] [address]- 2785 Jan, [facility] [place] [facility] [address] [id number] [place] [address]- 5480 Nov, [facility] [place] [facility] [address] [id number] [place] [address]- 1298 Nov, [facility] [place] [facility] [address] [id number] [place] [address]- 1182 Aug, [facility] [place] [facility] [address] [id number] [place] [address]- 9627 Jun, [facility] [place] [facility] [address] [id number] [place] [address]- 0159 Jun, [facility] [place] [facility] [address] [id number] [place] [address] 2546 Jun, [facility] [place] [facility] [address] [id number] [place] [address]- 2216 May, [facility] [place] [facility] [address] [id number] [place] [address]- 8839 May, [facility] [place] [facility] [address] [id number] [place] [address]- 35[address] 17 May, 2011 [facility] [address] [id number] [place] [address]- 8061 May, [facility] [place] [facility] [address] [id number] [place] [address]- 7739 Apr, [facility] [address] [id number] [place] [address]- 4788 Apr, [facility] [place] [facility] [address] [id number] [place] [address]- 9627 Apr, [facility] [address] [id number] [place] [address]- 6932 Apr, [facility] [place] [facility] [address] [id number] [place] [address]- 7709 Mar, [facility] [address] [id number] [place] [address]- 3231 Feb, [facility] [place] [facility] [address] [id number] [place] [address]- 8406 16 Dec, 2010 [facility] [address] [id number] [place] [address]- 8527 Nov, [facility] [place] [facility] [address] [id number] [place] [address]- 2386 Jul, [facility] [place] [facility] [address] [id number] [place] [address]- 0857 30 Apr, 2010 [facility] [place] [facility] [address] [id number] [place] [address]- 0561 29 Apr, 2010 [facility] [place] [facility] [address] [id number] [place] [address]- 5147 09 Apr, 2010 [facility] [place] [facility] [address] [id number] [place] [address]- 6639 Mar, [facility] [place] [facility] [address] [id number] [place] [address]- 6[address] 18 Mar, 2010 [facility] [place] [facility] [address] [id number] [address] Mar, [facility] [address], [place] [address]- [address] Feb, [facility] [address], [place] [address]- [address] Feb, [facility] [address], [place] [address]- [address] Feb, [facility] [address] [id number], [place] [address]- [address] Feb, [facility] [address], [place] [address]- [address] Dec, [facility] [address], [place] [address]- [address] Oct, [facility] [address], [place] [address] Oct, IMMUNIZATIONS No Known Immunizations SOCIAL HISTORY Never Assessed REASON FOR VISIT Annual physical (female) -- sudha murrieta PLAN OF CARE Activity Details Follow Up 4 Weeks Reason:RA follow-up VITAL SIGNS Height 60 in 2017-04-09 Weight 171.0 lbs 2017-04-09 Temperature 97.8 degrees Fahrenheit 2017-04-09 Heart Rate 80 bpm 2017-04-09 Respiratory Rate 20 2017-04-09 BMI 33.39 kg/m2 2017-04-09 Blood pressure systolic 126 mmHg 2017-04-09 Blood pressure diastolic 78 mmHg 2017-04-09 MEDICATIONS Medication Instructions Dosage Frequency Start Date End Date Duration Status Omeprazole 40 MG Orally Once a day 1 capsule 24h 17 May, 2016 30 day(s ) Active Mobic 7.5 MG Orally Once a day 1 tablet 24h 10 Jul, 2016 Active Acyclovir 400 MG Orally Twice a day 1 tablet 12h 04 Oct, 2014 90 days Active Zofran 8 MG Orally 3 times a day 1 tablet 8h 30 Mar, 2016 Not-Taking Sertraline HCl 25 MG Orally Once a day 1 tablet 24h 07 Jun, 2016 30 day (s) Active Fluticasone Propionate 50 MCG/ACT Nasally Twice a day 1 spray in each nostril 12h Jul, 30 day(s) Active Excedrin Migraine 250-250-65 MG Orally every 6 hrs 2 tablets as needed 6h Not-Taking Atenolol 50 mg Orally Once a day 1 tablet 24h Nov, Active Hydrochlorothiazide 25 MG Orally Once a day 1 tablet 24h Jul, 30 day(s) Active Lisinopril 40 mg Orally Once a day 1 tablet 24h Nov, Active Debrox 6.5 % as directed Oct, Not-Taking Proventil HFA 108 (90 Base) MCG/ACT Inhalation every 4 hrs 2 puffs as needed 4h Nov, Active Tramadol HCl 50 MG Orally every 6 hrs 1 tablet as needed 6h Active Trazodone HCl 50 mg Orally Once a day 1 tablet at bedtime as needed 24h Jul, 30 day(s) Not-Taking RESULTS Name Result Date Reference Range Mammogram, Bilateral Screening 2017 PROCEDURES No Known procedures INSTRUCTIONS MEDICATIONS ADMINISTERED [...]
--- OUTSIDE RECORDS SUMMARY | 2018-07-14 13:21 | XMS REPORT ---
Author Author JAYLAN ALBERT [facility] Address [address] [place] [address] Care Team Providers Care State Director Name Role Phone ALBERT TIAN Unavailable PROBLEMS Type Condition ICD9-CM Code RHE82-PV Code Onset Dates Condition Status SNOMED Code Problem 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 Active [id number] Problem Rheumatoid arthritis involving multiple sites, unspecified rheumatoid factor presence M06.9 Active 776177390 Problem Panic attacks F41.0 Active 973852380 Problem Other chronic pain G89.29 Active 71301265 Problem Porokeratosis Q82.8 Active 962104805 Problem Gastroesophageal reflux disease without esophagitis K21.9 Active 788842626 Problem Epilepsy, unspecified, not intractable, without status epilepticus G40.909 Active 580993576 Problem Depressive disorder, not elsewhere classified F32.9 Active 56251952 Problem Seasonal allergic rhinitis, unspecified allergic rhinitis trigger J30.2 Active 048781495 Problem Chronic hepatitis C B18.2 Active 987646814 Problem Essential hypertension I10 Active 95388978 Problem 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 Active 88344478 Problem Chronic obstructive pulmonary disease, unspecified COPD type J44.9 Active 00242284 Problem Methamphetamine abuse F15.10 Active 599443422 Problem Anxiety F41.9 Active 21317286 ALLERGIES No Information ENCOUNTERS Encounter Location Date Diagnosis [facility], [place] [id number] [address] Oct, [facility], [place] [id number] [place] [address]79- 0792 Oct, 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 [facility], [place] [id number] [address] September, [facility], [place] [id number] [place] [address]5340- 9750 September, Pain in right ankle and joints of right foot M25.571 and Other chronic pain G89.29 [address] [id number] [place] [address] 78528- 1502 Aug, Essential hypertension I10 ; Rheumatoid arthritis involving multiple sites, unspecified rheumatoid factor presence M06.9 ; Gastroesophageal reflux disease without esophagitis K21.9 ; Anxiety F41.9 ; 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 and Dermatitis L30.9 [place] [id number] [place] [address] 47013- 7573 Aug, Onychomycosis B35.1 ; Peroneal tendinitis, unspecified laterality M76.70 and Porokeratosis Q82.[address] [address]- [address] Jul, Porokeratosis Q82.8 ; Hyperhidrosis L74.519 and Callus of foot L84 [place] [id number] [place] [address] 15918- 9673 Apr, [address] [address]- 69[address] Apr, [place] [id number] [place] [address] 25238- 4395 Mar, Well woman exam (no gynecological exam) Z00.00 ; Plantar wart B07.0 ; Pain of left foot M79.672 ; Pain in right foot M79.671 and Rheumatoid arthritis involving multiple sites, unspecified rheumatoid factor presence M06.9 [place] [id number] [place] [address] 25655- 6586 Nov, Bilateral low back pain, with sciatica presence unspecified M54.5 [place] [id number] [place] [address] 68608- 5763 Oct, Chronic obstructive pulmonary disease, unspecified COPD type J44.9 [place] [id number] [place] [address] September, [facility], [place] [id number] [place] [address] 69854- 6040 September, Bilateral low back pain, with sciatica presence unspecified M54.5 [facility] [id number] [place] [address] 72061 -2994 September, Body aches R52 and Upper respiratory infection, acute J06.9 [facility] [address] [place] [address] September, [facility] [id number] [place] [address] 41694 -2030 September, Left wrist injury, initial encounter S69.92XA and Contusion of wrist, left S60.212A [place] [id number] [place] [address] 30971- 9064 Aug, Depressive disorder, not elsewhere classified F32.[address] [facility] [id number] [place] [address] 04724 -0552 Jul, Seasonal allergic rhinitis, unspecified allergic rhinitis trigger J30.2 ; Rheumatoid arthritis flare M06.9 and Essential hypertension I10 [place] [id number] [place] [address] 15448- 8312 Jul, [place] [id number] [place] [address] 96098- 6176 Jul, Essential hypertension I10 [place] [id number] [place] [address] 46414- 9798 Jul, Essential hypertension I10 ; Other chronic pain G89.29 ; Rheumatoid arthritis involving multiple sites, unspecified rheumatoid factor presence M06.9 and Insomnia due to medical condition G47.01 [facility], [place] [id number] [place] [address] 24590- 8141 Jul, [place] [address] [address] Jul, [id number] [place] [address] 66341- 7543 Jun, [address] 15808- 3736 Jun, 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 ; Essential hypertension I10 ; Chronic obstructive pulmonary disease, unspecified COPD type J44.9 ; Panic attacks F41.0 ; Hot flashes R23.2 ; Rheumatoid arthritis involving multiple sites, unspecified rheumatoid factor presence M06.9 ; Pain in thoracic spine M54.6 ; Other chronic pain G89.29 and Arthralgia, unspecified joint M25.[address] [facility] [address] [place] [address]108 May, Rheumatoid arthritis flare M06.9 [facility] [address] [address] May, Left lower quadrant pain R10.32 ; Abdominal pain in female R10.9 ; Constipation, unspecified constipation type K59.00 and Gastroesophageal reflux disease without esophagitis K21.9 [facility] [id number] [place] [address] 66165 [address]0878 Mar, Herpes genitalis in women A60.09 ; Bilateral impacted cerumen H61.23 and Injury of right ring finger, initial encounter S69.[id number] [place] [address]39- 7042 Mar, [address] [address]- 0475 Nov, Essential hypertension I10 ; Chronic hepatitis C B18.2 ; Arthralgia, unspecified joint M25.50 ; Chronic obstructive pulmonary disease, unspecified COPD type J44.9 ; Methamphetamine abuse F15.10 ; Simple chronic bronchitis J41.0 ; Hemorrhoids, unspecified hemorrhoid type K64.9 and Anxiety F41.9 [facility] [address] [address] Nov, [facility], [place] [address], [place] [address] Feb, Elevated glucose R73.09 [facility], [place] [id number] [place] [address] 04513- 2938 Feb, Elevated glucose R73.09 [facility], [place] [id number] [place] [address] 72517- 2349 Oct, [facility], [place] [id number] [place] [address] 78084- 8686 Oct, [facility], [place] [id number] [place] [address] 84999- 7948 Oct, Essential hypertension, benign 401.1 ; Chronic hepatitis C without mention of hepatic coma 070.54 ; Anxiety state, unspecified 300.00 ; Genital herpes 054.10 ; Methamphetamine abuse 305.70 and Excessive cerumen in both ear canals 380.4 [facility], [place] [id number] [place] [address] 21916- 0903 Oct, [facility], [place] [id number] [place] [address] 42569- 5177 Aug, [facility], [place] [id number] [place] [address] 64508- 4785 Aug, [facility], [place] [address] [address]- 6438 Jul, [facility], [place] [id number] [place] [address] 91143- 4367 Jul, [facility], [place] [id number] [place] [address] 80228- 3203 Jun, [facility], [place] [id number] [place] [address] 97064- 2052 Jun, [facility], [place] [id number] [place] [address] 896293- 4777 Jun, [facility], [place] [id number] [place] [address], [place] [address]- [address] Jun, [facility] [place] [facility] [address] [id number] [place] [address]- 9534 May, [facility] [place] [facility] [address] [id number] [place] [address]- 5454 May, [facility] [place] [facility] [address] [id number] [place] [address]- 4644 May, [facility] [place] [facility] [address] [id number] [place] [address]- 1359 May, [facility] [place] [facility] [address] [id number] [place] [address]- 2132 May, [facility] [place] [facility] [address] [id number] [place] [address]- 8924 May, [facility] [place] [facility] [address] [id number] [place] [address]- 6727 May, [facility] [place] [facility] [address] [id number] [place] [address]- 0218 Apr, [facility] [place] [facility] [address] [id number] [place] [address]- 5010 Apr, [facility] [place] [facility] [address] [id number] [place] [address]- 3292 Apr, [facility] [place] [facility] [address] [id number] [place] [address]- 8822 Dec, [facility] [place] [facility] [address] [id number] [place] [address]- 2681 Dec, [facility] [place] [facility] [address] [id number] [place] [address]- 5735 Nov, [facility] [place] [facility] [address] [id number] [place] [address]- 9044 Nov, [facility] [place] [facility] [address] [id number] [place] [address]- 3034 Nov, [facility] [place] [facility] [address] [id number] [place] [address]- 8924 Nov, [facility] [place] [facility] [address] [id number] [place] [address]- 1765 Nov, [facility] [place] [facility] [address] [id number] [place] [address]- 7547 Nov, [facility] [place] [facility] [address] [id number] [place] [address]- 9968 Nov, [facility] [place] [facility] [address] [id number] [place] [address]- 4594 Nov, [facility] [place] [facility] [address] [id number] [place] [address]- 8878 Nov, [facility] [place] [facility] [address] [id number] [place] [address]- 7822 Nov, [facility] [place] [facility] [address] [id number] [place] [address]- 9029 Nov, [facility] [place] [facility] [address] [id number] [place] [address]- 3690 Nov, [facility] [place] [facility] [address] [id number] [place] [address]- 1797 Oct, [facility] [place] [facility] [address] [id number] [place] [address]- 2486 Oct, [facility] [place] [facility] [address] [id number] [place] [address]- 6867 September, [facility] [place] [facility] [address] [id number] [place] [address]- 3286 September, [facility] [place] [facility] [address] [id number] [place] [address]- 5412 Aug, [facility] [place] [facility] [address] [id number] [place] [address]- 4107 Aug, [facility] [place] [facility] [address] [id number] [place] [address]- 2436 17 Aug, 2013 [facility] [place] [facility] [address] [id number] [place] [address]- 2553 17 Aug, 2013 [facility] [place] [facility] [address] [id number] [place] [address]- 1080 14 Aug, 2013 [facility] [place] [facility] [address] [id number] [place] [address]- 8628 14 Aug, 2013 [facility] [place] [facility] [address] [id number] [place] [address]- 7582 Aug, [facility] [place] [facility] [address] [id number] [place] [address]- 5934 Aug, [facility] [place] [facility] [address] [id number] [place] [address]- 5529 Aug, [facility] [place] [facility] [address] [id number] [place] [address]- 9345 Aug, [facility] [place] [facility] [address] [id number] [place] [address]- 9950 Aug, [facility] [place] [facility] [address] [id number] [place] [address]- 8149 Jul, [facility] [place] [facility] [address] [id number] [place] [address]- 3029 Jul, [facility] [place] [facility] [address] [id number] [place] [address]- 6348 Jul, [facility] [place] [facility] [address] [id number] [place] [address]- 9418 05 Jul, 2013 [facility] [place] [facility] [address] [id number] [place] [address]- 2408 05 Jul, 2013 [facility] [place] [facility] [address] [id number] [place] [address]- 9659 Jul, [facility] [place] [facility] [address] [id number] [place] [address]- 2734 Jul, [facility] [place] [facility] [address] [id number] [place] [address]- 7701 Jun, [facility] [place] [facility] [address] [id number] [place] [address]- 0796 Jun, [facility] [place] [facility] [address] [id number] [place] [address]- 4316 Jun, [facility] [place] [facility] [address] [id number] [place] [address] 2546 Jun, [facility] [place] [facility] [address] [id number] [place] [address]- 2540 Jun, [facility] [place] [facility] [address] [id number] [place] [address]- 0514 Jun, [facility] [place] [facility] [address] [facility] [id number] [place] [address]- 1024 Jun, [facility] [place] [facility] [address] [facility] [id number] [place] [address]- 4771 Jan, [facility] [place] [facility] [address] [id number] [place] [address]- 2321 Nov, [facility] [place] [facility] [address] [facility] [id number] [place] [address]- 6777 Nov, [facility] [place] [facility] [address] [facility] [id number] [place] [address]- 9987 Aug, [facility] [place] [facility] [address] [facility] [id number] [place] [address]- 5092 Jun, [facility] [place] [facility] [address] [id number] [place] [address]- 5923 Jun, [facility] [place] [facility] [address] [id number] [place] [address]- 0359 Jun, [facility] [place] [facility] [address] [id number] [place] [address]- 1681 May, [facility] [place] [facility] [address] [facility] [id number] [place] [address]- 5459 May, [facility] [place] [facility] [address] [id number] [place] [address]- 5565 May, [facility] [place] [facility] [address] [id number] [place] [address]- 5309 May, [facility] [place] [facility] [address] [id number] [place] [address]- 8800 Apr, [facility] [place] [facility] [address] [id number] [place] [address]- 0670 Apr, [facility] [place] [facility] [address] [id number] [place] [address]- 7275 Apr, [facility] [place] [facility] [address] [id number] [place] [address]- 5710 Apr, [facility] [place] [facility] [address] [id number] [place] [address]- 1424 Mar, [facility] [place] [facility] [address] [id number] [place] [address]- 2112 Feb, [facility] [place] [facility] [address] [id number] [place] [address]- 2550 16 Dec, 2010 [facility] [place] [facility] [address] [id number] [place] [address]- 8993 Nov, [facility] [place] [facility] [address] [id number] [place] [address]- 6454 Jul, [facility] [place] [facility] [address] [id number] [place] [address]- 9574 30 Apr, 2010 [facility] [place] [facility] [address] [id number] [place] [address]- 0223 Apr, [facility] [place] [facility] [address] [id number] [place] 4357 09 Apr, 2010 [facility] [place] [facility] [address] [id number] [place] [address]- 8778 Mar, [facility] [place] [facility] [id number] [address]- 9207 Mar, [facility] [place] [id number] [address]- 1166 Mar, [facility] [place] [address] [address]- 0796 Feb, [facility] [place] [id number] [address]- 1584 Feb, [facility] [place] [address], [place] [address]- 8056 Feb, [facility] [place] [address], [place] [address]- 5878 Feb, [facility] [place] [address] [address]- 2196 Dec, [facility] [place] [address], [place] [address]- 9108 Oct, [facility] [place] [id number] [address]- 9835 Oct, IMMUNIZATIONS No Known Immunizations SOCIAL HISTORY [...]
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
--- NOTE | 2018-07-14 14:15 | NUR ---
RESTING IN BED ET DENIES NEEDS AT THIS TIME.
--- NOTE | 2018-07-14 14:54 | ED Trauma-Multisystem ---
General Chief Complaint: Trauma-Non Activation Stated Complaint: FELL IN BATHROOM Nursing Triage Note: ARRIVED VIA AMB TO TRIAGE. STATES SHE FELL THRU HER BATHROOM FLOOR LAST NIGHT WHERE HER HAD CUT THRU THE FLOOR TO UNFREEZE THE PIPES. COMPLAINS OF RIGHT SIDED CHEST PAIN, BACK PAIN, AND LEFT LEG PAIN, AND NECK PAIN. DENIES LOC. Source of Information: Patient Exam Limitations: No Limitations History of Present Illness Date Seen by Provider: Jul 14, 2018 Time Seen by Provider: 14:20 Initial Comments 48 year old female who presents to the emergency room with complaints of pain to her head, neck, upper back, right chest wall after falling through a hole in the bathroom floor that her had cut to unfreeze the pipes. She did strike her head on the bathroom floor but denies LOC. Patient was placed in C- Collar on arrival to the ED. She has ecchymosis to the right chest wall, she reports landing on a bottle that was on the bathroom floor. Occurred: Yesterday Pain/Injury Location: Back, Chest, Head, Neck Loss of Consciousness: No Loss of Consciousness Associated Symptoms (Fall): Neck Pain Allergies and Home Medications Allergies Coded Allergies: methotrexate (Unverified Allergy, Severe, SEIZURE, 12/25/09) nitrofurantoin (Unverified Allergy, Mild, 09/26/08) ziprasidone (Unverified Allergy, Mild, 08/23/09) aripiprazole (Verified Adverse Reaction, Intermediate, TONGUE SWELLING, ) Home Medications Alprazolam 1 Mg Tablet, 1 MG PO BID PRN for ANXIETY, (Reported) Atenolol 50 Mg Tablet, 50 MG PO DAILY, (Reported) Lisinopril 40 Mg Tablet, 40 MG PO DAILY, (Reported) Naproxen 500 Mg Tablet, 500 MG PO BID PRN for PAIN Prescribed by: HONORIO AGEE on 04/18/16 160 Naproxen 500 Mg Tablet, 500 MG PO BID Prescribed by: KRIS WHALEN on 05/23/162230 Omeprazole 40 Mg Capsule.dr, 40 MG PO DAILY Prescribed by: HONORIO AGEE on 04/18/16 1601 Ondansetron HCl 8 Mg Tablet, 8 MG SL PRN PRN for NAUSEA, (Reported) Prednisone 20 Mg Tab, 40 MG PO DAILY 2 tablets a day for 3 days One tablet a day for 3 days Half tablet daily for 3 days Prescribed by: PAULA VILLAR on 05/15/18 0410 Valacyclovir HCl 1,000 Mg Tablet, 1,000 MG PO DAILY, (Reported) Patient Home Medication List Home Medication List Reviewed: Yes Review of Systems Review of Systems Constitutional: no symptoms reported, see HPI Musculoskeletal: see HPI, back pain, neck pain Psychiatric/Neurological: See HPI, Headache All Other Systems Reviewed Negative Unless Noted: Yes Past Lviylnd-Tshtij-Srtzej Hx Past Med/Social Hx: Reviewed Nursing Past Med/Soc Hx Patient Social History Alcohol Use: Denies Use Recreational Drug Use: No (PAST HISTORY) Drug of Choice: hx THC, + IV METH Smoking Status: Current Everyday Smoker Type Used: Cigarettes 2nd Hand Smoke Exposure: No Recent Foreign Travel: No Contact w/Someone Who Travel: No Recent Infectious Disease Expo: No Recent Hopitalizations: No Immunizations Up To Date Tetanus Booster (TDap): More than 5yrs PED Vaccines UTD: No Date of Influenza Vaccine: May 05, 2014 Seasonal Allergies Seasonal Allergies: No Past Medical History Surgeries: Yes Adenoidectomy, Breast, Cardiac, Gallbladder, 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, Oophorectomy, Tonsillectomy, Vascular Surgery Respiratory: Yes (SPONTANEOUS RIGHT PNEUMOTHORAX) Pneumonia, Chronic Bronchitis, COPD Cardiac: Yes Hypertension Neurological: Yes Concussion, Headaches /Migraines, Seizure Disorder, Stroke, Traumatic Brain Injury 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 Disorders: No [employer] History: 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 Sexually Transmitted Disease: No Genitourinary: Yes Bladder Infection, Kidney Stones Gastrointestinal: Yes (HEPATITIS C --NO TREATMENT) Gastroesophageal Reflux, Liver Disease/Jaundice, Chronic Constipation, Pancreatitis, Chronic Diarrhea, Hepatitis, Ulcer Musculoskeletal: Yes Degenerate Disk Disease, Arthritis, Fibromyalgia, Rheumatoid Arthritis, Back Injury, Chronic Back Pain, Fractures Endocrine: No HEENT: No (EDENTULOUS) Cancer: No Psychosocial: Yes (PLYSUBSTANCE ABUSE) Anxiety, Bipolar, Depression Integumentary: No Blood Disorders: No Family Medical History Reviewed Nursing Family Hx Physical Exam Vital Signs Vital Signs - First Documented 07/14/18 13:10 Temp 98.1 Pulse 83 Resp 16 B/P (MAP) 192/93 (126) Pulse Ox 97 O2 Delivery Room Air Height, Weight, BMI Height: 5'1.00" Weight: 175lbs. 2.0oz. 79.206088js; 30.23 BMI Method:Stated General Appearance: No Apparent Distress, WD/WN Head: No Evidence of Injury Eyes: Bilateral Eye Normal Inspection, Bilateral Eye PERRL, Bilateral Eye EOMI Cardiovascular: Regular Rate, Rhythm, No Edema, No Gallop, No JVD, No Murmur, Normal Peripheral Pulses Respiratory: Lungs Clear, Normal Breath Sounds, No Accessory Muscle Use, No Respiratory Distress, Other (Right chest wall tenderness and ecchymosis, see images for location) Gastrointestinal: Normal Bowel Sounds, No Organomegaly, No Pulsatile Mass, Non Tender, Soft Back: Normal Inspection, No CVA Tenderness, Vertebral Tenderness (cervical and thoracic) Extremity: Normal Capillary Refill, Normal Inspection, Normal Range of Motion, Non Tender, No Calf Tenderness, No Pedal Edema Neurologic/Psychiatric: Alert, Oriented x3, Normal Mood/Affect Skin: Normal Color, Warm/Dry [place] Coma Score Best Verbal Response ([place]): (5) Oriented Best Motor Response ([place]): (6) Obeys Commands Eveline Total: 15 Progress/Results/Core Measures Results/Orders My Orders Orders - LUCY MATHIAS Chest 1 View, Ap/Pa Only (07/14/18 13:20) Ct Cervical/Thoracic Spine Wo (07/14/18 13:20) Acetaminophen Tablet (Tylenol Tablet) (07/14/18 15:30) Ketorolac Injection (Toradol Injection) (07/14/18 16:00) Medications Given in ED Vital Signs/I&O 07/14/18 07/14/18 13:10 16:12 Temp 98.1 Pulse 83 79 Resp 16 16 B/P (MAP) 192/93 (126) 170/95 (120) Pulse Ox 97 98 O2 Delivery Room Air Room Air Blood Pressure Mean: 126 Progress Progress Note : Time: 15:02 Progress Note It was brought to my attention by nursing staff that the patient removed her own c-collar at this time. We are still awaiting her imaging results at this time. 1600: I have seen and evaluated the patient. I have informed her of her imaging studies. She agrees with plan of care, plans for discharge, return precautions were given. Departure Impression Primary Impression: Chest wall contusion Additional Impression: Fall Disposition: 01 HOME, SELF-CARE Condition: Stable/Unchanged Departure-Patient Inst. Decision time for Depature: 16:09 Referrals: [facility] (PCP) Primary Care Physician JALIL FRYE MD (Family) Primary Care Physician Patient Instructions: CHEST CONTUSION Add. Discharge Instructions: Ice to the sore areas at 20 minute intervals. Ibuprofen as directed by the bottle for pain relief. Return back to the emergency room for worsening symptoms or concerns as needed. Follow-up with your primary care provider as needed. All discharge instructions reviewed with patient and/or family. Voiced understanding. Images Full Body/Extremities Full 1 - Other-See Progress Note Progress ecchymosis in a circular patter LUCY MATHIAS Jul 14, 2018 14:54
--- NOTE | 2018-07-14 15:02 | NUR ---
PT TOOK OWN C-COLLAR OFF. LUCY NOTIFIED.
[2018-07-14] MEDS ORDERED: ACETAMINOPHEN 500 MG TAB (TYLENOL) PO ONE (15:30)
--- NOTE | 2018-07-14 15:36 | NUR ---
PT REFUSED TYLENOL ET STATES SHE HAS HEP C. LUCY NOTIFIED.
--- NOTE | 2018-07-14 15:50 | NUR ---
OFFERED PT IBUPROFEN PER LUCY REQUEST ET PT STATES SHE IS JUST GOING TO LEAVE ET WE HAVENT DONE ANYTHING FOR HER ANYWAYS. NOTIFIED HER WE HAVE DONE A CT AND XRAYS AND HAVE GIVEN HER A C-COLLAR FOR HER PROTECTION WHICH SHE TOOK OFF. LUCY THEN CAME INTO THE ROOM AND ASKED HER WHAT SHE WOULD LIKE AND PT REQUESTED A SHOT.
[2018-07-14] MEDS ORDERED: KETOROLAC 60 MG/2 ML VIAL IM ONE (16:00)
[2018-07-14 16:12] VITALS: BP 170/95
--- NOTE | 2018-07-14 16:50 | Diagnostic Imaging Report ---
PATIENT HISTORY: Fall with neck and back pain. TECHNIQUE: Noncontrast axial CT of the cervical and thoracic spine. COMPARISON: Radiographs from 07/21/2014. FINDINGS: CT CERVICAL SPINE: No acute fracture or dislocation is seen in the cervical spine. Alignment appears normal. There is no spondylolisthesis. Vertebral body heights and disc heights are generally preserved. No bony fragments or hyperdense fluid collections are seen in the spinal canal. The soft tissues about the cervical spine are otherwise unremarkable. CT THORACIC SPINE: No acute fracture is seen in the thoracic spine. There is mild height loss of T11 and a compression deformity of L1 which are chronic and appear similar to 2015. No acute compression fracture is seen. There is no spondylolisthesis. No aggressive osseous lesions are seen. No bony fragments or hyperdense fluid collections are seen in the spinal canal. There is dependent atelectasis in the lungs. There is a nonobstructing calculus in the left kidney. IMPRESSION: 1. No acute osseous abnormality is seen in the cervical or thoracic spine. 2. Mild compression deformities of the T11 and L1 vertebral bodies are chronic and appear unchanged. 3. Nonobstructing left renal calculus. Dictated by: Dictated on workstation # [id number]
== END 2018-07-14 16:12 | disposition home or self-care (01) ==
LOC: EDUNIT# 12:30 → ER 12:33
DX: S20.211A Contusion of right front wall of thorax, initial encounter (principal); J44.9 Chronic obstructive pulmonary disease, unspecified; I10 Essential (primary) hypertension; G43.909 Migraine, unspecified, not intractable, without status migrainosus; G40.909 Epilepsy, unspecified, not intractable, without status epilepticus; K21.9 Gastro-esophageal reflux disease without esophagitis; B19.20 Unspecified viral hepatitis C without hepatic coma; M06.9 Rheumatoid arthritis, unspecified; F41.9 Anxiety disorder, unspecified; F31.9 Bipolar disorder, unspecified; F17.210 Nicotine dependence, cigarettes, uncomplicated; Z88.8 Allergy status to other drugs, medicaments and biological substances; Z86.73 Personal history of transient ischemic attack (TIA), and cerebral infarction without residual deficits; Z87.820 Personal history of traumatic brain injury; Z87.448 Personal history of other diseases of urinary system; Z87.19 Personal history of other diseases of the digestive system; Z87.442 Personal history of urinary calculi; Z79.52 Long term (current) use of systemic steroids; Z90.89 Acquired absence of other organs; Z90.710 Acquired absence of both cervix and uterus; Z87.01 Personal history of pneumonia (recurrent); Z87.09 Personal history of other diseases of the respiratory system; W01.198A Fall on same level from slipping, tripping and stumbling with subsequent striking against other object, initial encounter; Y92.002 Bathroom of unspecified non-institutional (private) residence as the place of occurrence of the external cause
CPT/HCPCS: 71045; 72125; 72128

== ENCOUNTER 2018-07-19 00:20 | Inpatient (IN) | payer MEDICAID ==
[2018-07-19] VITALS (17 sets, daily range): BP systolic 69–132; BP diastolic 4–91
[~2018-07-19] VITALS: Ht 152.4 cm; Wt 86.2 kg
--- OUTSIDE RECORDS SUMMARY | 2018-07-19 00:25 | XMS REPORT | Clinical Summary ---
Author Author [facility] Organization [facility] Address Unknown Phone Unavailable Care Team Providers Care Crop Nutrition Scientist Name Role Phone PCP Unavailable Source Comments Some departments are not documenting in the electronic medical record. If you do not see the information that you expected, contact Release of Information in the Health Information Management department at [phone] for further assistance in locating additional records.[facility] Allergies Not on File Medications Not on [...] 1998 BREAST CANCER SCREENING 2008 INFLUENZA VACCINE 12/10/2017 COLORECTAL CANCER 2018 SCREENING SHINGLES RECOMBINANT 2018 VACCINE (1 of 2) Results Not on filefrom Last 3 Months
[2018-07-19] MEDS ORDERED: NS IV 1000 ML 1,000 ML IV ONE (00:30)
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
--- NOTE | 2018-07-19 01:02 | ED General ---
General Chief Complaint: Chest Pain Stated Complaint: GENERALIZED ILLNESS Source of Information: Patient, EMS Exam Limitations: No Limitations History of Present Illness Date Seen by Provider: Jul 19, 2018 Time Seen by Provider: 00:23 Initial Comments Here by EMS with a variety of complaints including shortness of breath, mid chest pain that radiates to the left shoulder, nausea and vomiting for the last 24 hours and weakness. She's been unable to keep anything down. She called EMS for the chest pain. reports 36 hours ago that she was confused when she woke up and hasn't been feeling well since. This was told EMS and then told to me from them. Patient denies dysuria. She does have a rash to her sides. She is on Plaquenil for rheumatoid arthritis. Noted have low blood pressure on arrival with pressures in the 80s systolic. She did have fall a few days ago and was evaluated and was noted to have bruising on her chest. This remains. Bruises to the right mid upper chest wall along the upper breast. She did have heart catheter in 2009 which was negative for any angiographic with significant coronary artery disease. Timing/Duration: 2-3 Days Severity: Moderate Associated Systoms: Chest Pain; No Cough; Fever/Chills; No Headaches; Nausea/ Vomiting, Shortness of Air, Weakness Allergies and Home Medications Allergies Coded Allergies: methotrexate (Unverified Allergy, Severe, SEIZURE, 12/25/09) nitrofurantoin (Unverified Allergy, Mild, 09/26/08) ziprasidone (Unverified Allergy, Mild, 08/23/09) aripiprazole (Verified Adverse Reaction, Intermediate, TONGUE SWELLING, ) Home Medications Alprazolam 1 Mg Tablet, 1 MG PO BID PRN for ANXIETY, (Reported) Atenolol 50 Mg Tablet, 50 MG PO DAILY, (Reported) Lisinopril 40 Mg Tablet, 40 MG PO DAILY, (Reported) Naproxen 500 Mg Tablet, 500 MG PO BID PRN for PAIN Prescribed by: HONORIO AGEE on 04/18/161600 Naproxen 500 Mg Tablet, 500 MG PO BID Prescribed by: KRIS WHALEN on 05/23/162230 Omeprazole 40 Mg Capsule.dr, 40 MG PO DAILY Prescribed by: HONORIO AGEE on 04/18/16 160 Ondansetron HCl 8 Mg Tablet, 8 MG SL PRN PRN for NAUSEA, (Reported) Prednisone 20 Mg Tab, 40 MG PO DAILY 2 tablets a day for 3 days One tablet a day for 3 days Half tablet daily for 3 days Prescribed by: PAULA VILLAR on 05/15/180 Valacyclovir HCl 1,000 Mg Tablet, 1,000 MG PO DAILY, (Reported) Patient Home Medication List Home Medication List Reviewed: Yes Review of Systems Review of Systems Constitutional: see HPI, chills, fever, weakness EENTM: no symptoms reported Respiratory: No cough; short of breath Cardiovascular: chest pain; No edema Gastrointestinal: No abdominal pain; nausea, vomiting Genitourinary: no symptoms reported Musculoskeletal: joint pain, muscle pain Skin: change in color; No lesions Psychiatric/Neurological: Denies Headache; Weakness All Other Systems Reviewed Negative Unless Noted: Yes Past Tewbrwy-Oygmiu-Fonxxt Hx Past Med/Social Hx: Reviewed Nursing Past Med/Soc Hx Patient Social History Alcohol Use: Denies Use Recreational Drug Use: No Drug of Choice: hx THC, + IV METH Type Used: Cigarettes 2nd Hand Smoke Exposure: No Recent Foreign Travel: No Contact w/Someone Who Travel: No Recent Hopitalizations: No Immunizations Up To Date Tetanus Booster (TDap): More than 5yrs PED Vaccines UTD: No Date of Influenza Vaccine: May 05, 2014 Seasonal Allergies Seasonal Allergies: No Past Medical History Surgeries: Yes Adenoidectomy, Breast, Cardiac, Gallbladder, 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, Oophorectomy, Tonsillectomy, Vascular Surgery Respiratory: Yes (SPONTANEOUS RIGHT PNEUMOTHORAX) Pneumonia, Chronic Bronchitis, COPD Cardiac: Yes Hypertension Neurological: Yes Concussion, Headaches /Migraines, Seizure Disorder, Stroke, Traumatic Brain Injury 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 Disorders: No 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 Sexually Transmitted Disease: No Genitourinary: Yes Bladder Infection, Kidney Stones Gastrointestinal: Yes (HEPATITIS C --NO TREATMENT) Gastroesophageal Reflux, Liver Disease/Jaundice, Chronic Constipation, Pancreatitis, Chronic Diarrhea, Hepatitis, Ulcer Musculoskeletal: Yes Degenerate Disk Disease, Arthritis, Fibromyalgia, Rheumatoid Arthritis, Back Injury, Chronic Back Pain, Fractures Endocrine: No HEENT: No (EDENTULOUS) Cancer: No Psychosocial: Yes (PLYSUBSTANCE ABUSE) Anxiety, Bipolar, Depression Integumentary: No Blood Disorders: No Family Medical History Reviewed Nursing Family Hx Physical Exam Vital Signs Vital Signs - First Documented 07/19/18 00:22 Temp 97.4 Pulse 83 Resp 20 B/P (MAP) 89/50 (63) Pulse Ox 96 O2 Delivery Room Air Capillary Refill : Less Than 3 Seconds Height, Weight, BMI Height: 5'1.00" Weight: 175lbs. 2.0oz. [id number]; 30.23 BMI Method:Stated General Appearance: No Apparent Distress, WD/WN HEENT: PERRL/EOMI, Pharynx Normal Neck: Non Tender, Supple Respiratory: Lungs Clear, Normal Breath Sounds, Other (tender to right anterior upper chest wall) Cardiovascular: Regular Rate, Rhythm, No Murmur Gastrointestinal: Non Tender, Soft Back: Normal Inspection, No CVA Tenderness, No Vertebral Tenderness Extremity: Normal Range of Motion, Non Tender, No Calf Tenderness Neurologic/Psychiatric: Alert, Oriented x3 Skin: Normal Color, Warm/Dry Focused Exam Lactate Level 07/19/18 01:20: Lactic Acid Level 1.90 Lactic Acid Level Procedures/Interventions Lumen: triple Central Line Procedure: betadine prep, sterile drapes applied, sterile dressing applied Position: internal jugular (R) Anesthesia: Lidocaine Volume Anesthetic (ccs): 5 Complications: none Post Position: sutured, good blood return, position confirmed w/ CXR Progress/Results/Core Measures Suspected Sepsis SIRS Temperature: Pulse: Respiratory Rate: Laboratory Tests 07/19/18 04:30: White Blood Count 11.6H Blood Pressure / Mean: 07/19/18 01:20: Lactic Acid Level 1.90 07/19/18 01:20: Lactic Acid Level 1.90 07/19/18 01:20: Lactic Acid Level 1.90 07/19/18 01:20: Lactic Acid Level 1.90 Laboratory Tests 07/19/18 04:30: Creatinine 4.29H, INR Comment 1.1, Platelet Count 218, Total Bilirubin 0.5 Results/Orders Lab Results Laboratory Tests Test 07/19/18 01:20 07/19/18 04:30 07/19/18 05:10 Range/Units Lactic Acid Level 1.90 0.50-2.00 MMOL/L White Blood Count 11.6 H 4.3-11.0 10^3/uL Red Blood Count 4.18 L 4.35-5.85 10^6/uL Hemoglobin 12.1 11.5-16.0 G/DL Hematocrit 37 35-52 % Mean Corpuscular Volume 88 80-99 FL Mean Corpuscular Hemoglobin 29 25-34 PG Mean Corpuscular Hemoglobin Concent 33 32-36 G/DL Red Cell Distribution Width 14.0 10.0-14.5 % Platelet Count 218 130-400 10^3/uL Mean Platelet Volume 10.2 7.4-10.4 FL Neutrophils (%) (Auto) 62 42-75 % Lymphocytes (%) (Auto) 28 12-44 % Monocytes (%) (Auto) 9 0-12 % Eosinophils (%) (Auto) 0 0-10 % Basophils (%) (Auto) 0 0-10 % Neutrophils # (Auto) 7.2 1.8-7.8 X 10^3 Lymphocytes # (Auto) 3.3 1.0-4.0 X 10^3 Monocytes # (Auto) 1.1 H 0.0-1.0 X 10^3 Eosinophils # (Auto) 0.0 0.0-0.3 10^3/uL Basophils # (Auto) 0.0 0.0-0.1 10^3/uL Prothrombin Time 14.6 12.2-14.7 SEC INR Comment 1.1 0.8-1.4 Activated Partial Thromboplast Time 33 24-35 SEC Sodium Level 139 135-145 MMOL/L Potassium Level 3.9 3.6-5.0 MMOL/L Chloride Level 106 98-107 MMOL/L Carbon Dioxide Level 18 L 21-32 MMOL/L Anion Gap 15 H 5-14 MMOL/L Blood Urea Nitrogen 61 H 7-18 MG/DL Creatinine 4.29 H 0.60-1.30 MG/DL Estimat Glomerular Filtration Rate 11 BUN/Creatinine Ratio 14 Glucose Level 99 70-105 MG/DL Calcium Level 7.2 L 8.5-10.1 MG/DL Corrected Calcium 7.5 L 8.5-10.1 MG/DL Total Bilirubin 0.5 0.1-1.0 MG/DL Aspartate Amino Transf (AST/SGOT) 35 H 5-34 U/L Alanine Aminotransferase (ALT/SGPT) 45 0-55 U/L Alkaline Phosphatase 92 40-136 U/L Troponin I < 0.028 <0.028 NG/ML Total Protein 6.5 6.4-8.2 GM/DL Albumin 3.6 3.2-4.5 GM/DL Thyroid Stimulating Hormone (TSH) 0.41 0.35-4.94 UIU/ML Free Thyroxine 1.53 H 0.70-1.48 NG/DL Urine Color YELLOW Urine Clarity SLIGHTLY CLOUDY Urine pH 5 5-9 Urine Specific Cardinal 1.025 H 1.016-1.022 Urine Protein 2+ H NEGATIVE Urine Glucose (UA) NEGATIVE NEGATIVE Urine Ketones 1+ H NEGATIVE Urine Nitrite NEGATIVE NEGATIVE Urine Bilirubin 1+ H NEGATIVE Urine Urobilinogen NORMAL NORMAL MG/DL Urine Leukocyte Esterase 2+ H NEGATIVE Urine RBC (Auto) 1+ H NEGATIVE Urine RBC 2-5 H /HPF Urine WBC 2-5 /HPF Urine Squamous Epithelial Cells 2-5 /HPF Urine Crystals NONE /LPF Urine Bacteria MODERATE H /HPF Urine Casts PRESENT /LPF Urine Hyaline Casts 10-25 H /LPF Urine Mucus LARGE H /LPF Urine Culture Indicated CULTURE PENDING Micro Results Microbiology 07/19/18 Influenza Types A,B Antigen (MICHELLE) - Final, Complete My Orders Orders - MYRIAM LANDA MD Cbc With Automated Diff (07/19/18:30) Comprehensive Metabolic Panel (07/19/18:30) Blood Culture (07/19/18 00:30) Sputum Culture (07/19/18:30) Urinalysis (07/19/18:30) Urine Culture (07/19/18:30) Protime With Inr (07/19/18:30) Partial Thromboplastin Time (07/19/18:30) Chest 1 View, Ap/Pa Only (07/19/18:30) Saline Lock/Iv-Start (07/19/18:30) Ekg Tracing (07/19/18:30) Troponin I (07/19/18:30) Vital Signs Adult Sepsis Patie Q15M (07/19/18 00:30) O2 (07/19/18 00:30) Remove Rings In Anticipation O (07/19/18:30) Lactic Acid Analyzer (07/19/18:30) Influenza A And B Antigens (07/19/18:30) Ns Iv 1000 Ml (Sodium Chloride 0.9%) (07/19/18 00:30) Saline Lock/Iv-Start (07/19/18 04:03) Ns Iv 1000 Ml (Sodium Chloride 0.9%) (07/19/18 04:03) Chest 1 View, Ap/Pa Only (07/19/18 04:40) Thyroid Stimulating Hormone (07/19/18 05:13) Free T4 (Free Thyroxine) (07/19/18 05:13) Norepinephrine (Levophed) (07/19/18 06:00) Cefepime Injection (Maxipime Injection) (07/19/18 06:15) Calcium Gluconate 10% Inj (Calcium Glu (07/19/18 06:30) Calcium Gluconate 10% Inj (Calcium Glu (07/19/18 06:30) Ondansetron Injection (Zofran Injectio (07/19/18 07:00) Ondansetron Injection (Zofran Injectio (07/19/18 06:51) Medications Given in ED Current Medications Medications Dose Ordered Sig/Rene Route Start Time Stop Time Status Last Admin Dose Admin Calcium Gluconate 4.65 meq ONCE ONCE IV 07/19/18 06:30 07/19/18 06:32 DC 07/19/18 06:46 4.65 MEQ Calcium Gluconate 4.65 meq ONCE ONCE IV 07/19/18 06:30 07/19/18 06:32 DC 07/19/18 06:48 4.65 MEQ Cefepime HCl 1000 mg/Sterile Water 10 ml @ 200 mls/hr ONCE ONCE IV 07/19/18 06:15 07/19/18 06:17 DC 07/19/18 06:23 200 MLS/HR Ondansetron HCl 8 mg ONCE ONCE IVP 07/19/18 07:00 07/19/18 07:01 DC 07/19/18 06:56 8 MG Sodium Chloride 1,000 ml @ 0 mls/hr Q0M ONCE IV 07/19/18 00:30 07/19/18 00:34 DC 07/19/18 00:48 0 MLS/HR Vital Signs/I&O 07/19/18 07/19/18 00:22 00:22 Temp 97.4 Pulse 83 Resp 20 B/P (MAP) 89/50 (63) Pulse Ox 96 O2 Delivery Room Air Room Air Capillary Refill : Less Than 3 Seconds Progress Note : Progress Note Seen and evaluated. IV, labs, EKG and chest x-ray ordered. UA ordered. The pain is reproducible after fall. She is workup for that. There is concerns more regarding the nausea and vomiting and concerns for dehydration. We'll also check for sepsis with blood cultures and lactic acid. Normal saline 1 L bolus ordered. Monitor patient. 0438 (actually 0338 but daylights increased time is now on effect): Central line placed due to inability to get blood draw via multiple attempts including peripheral ultrasound-guided line. Patient's blood pressure continued to decline despite fluids and remained in the 80s over 40s. Mentating well. Central line placed after risk and benefits and discussed. Consent signed. Placed for blood draw, fluid requirement, possible pressor requirement and for medications. Tolerated procedure well no complications. Post chest x-ray ordered. We will give 2 more liters of normal saline to exceed 30 mL/kg bolus requirement and consider pressors after that if indicated. 0610: I have discussed the case with Dr. Luis. Patient to be admitted to the ICU. There is question of infiltrate on the right although this looks better on the second x-ray. There is also question of urinary tract infection. Patient has persistent hypotension despite fluid bolus. We will initiate Levophed drip. Patient will also get calcium chloride one amp IV due to the low calcium. Cefepime 1 g IV to be initiated. Admit, inpatient status. Patient and family agree with plan. 0650:Patient is vomiting. Zofran 8 mg IV. Patient did receive 2 A of calcium gluconate versus one amp of calcium chloride due to ability to get medicine. Patient to be admitted to the ICU. 0735: To ICU. I attest a focused exam at this time. Blood pressure currently 125/90 on Levophed drip at 5 mcg/m. ECG Initial ECG Impression Date: Jul 19, 2018 Initial ECG Impression Time: 00:39 Initial ECG Rate: 74 Initial ECG Rhythm: Normal Sinus Comment Sinus rhythm with normal axis. No evidence of ST elevation NE. Similar to previous of 05/15/18. Interpreted by me. Diagnostic Imaging Diagonstic Imaging: Xray Plain Films/CT/US/NM/MRI: chest Comments Poor expansion. Questionable infiltrate on the right. Diagonstic Imaging: Xray Plain Films/CT/US/NM/MRI: chest Comments Central line good position. Improved aeration. Decreased concerned about infiltrate in the right after better aeration picture. Departure Communication (Admissions) Time/Spoke to Admitting Phy: 05:55 Impression Primary Impression: Urinary tract infection Qualified Codes: N30.00 - Acute cystitis without hematuria Additional Impressions: Acute renal failure Qualified Codes: N17.9 - Acute kidney failure, unspecified Right lower lobe pneumonia Qualified Codes: J18.1 - Lobar pneumonia, unspecified organism Sepsis Qualified Codes: A41.9 - Sepsis, unspecified organism Disposition: 09 ADMITTED INPATIENT Condition: Stable Admissions Decision to Admit Reason: Admit from ER (General) Decision to Admit/Date: Jul 19, 2018 Time/Decision to Admit Time: 05:55 Departure-Patient Inst. Referrals: [facility] (PCP) Primary Care Physician JALIL FRYE MD (Family) Primary Care Physician MYRIAM LANDA MD Jul 19, 2018 01:02
--- NOTE | 2018-07-19 04:30 | NUR ---
BLOOD CULTURES #2 DRAWM FROM RT IJ CENTRAL LINE.
[2018-07-19 04:50] LABS: BASOPHILS % (AUTO) 0 % (0-10); EOSINOPHILS % (AUTO) 0 % (0-10); HEMATOCRIT 37 % (35-52); HEMOGLOBIN 12.1 G/DL (11.5-16.0); LYMPHOCYTES # (AUTO) 3.3 X 10^3 (1.0-4.0); LYMPHOCYTES % (AUTO) 28 % (12-44); MEAN CORPUSCULAR HEMOGLOBIN 29 PG (25-34); MEAN CORPUSCULAR HGB CONC 33 G/DL (32-36); MEAN CORPUSCULAR VOLUME 88 FL (80-99); MEAN PLATELET VOLUME 10.2 FL (7.4-10.4); MONOCYTES # (AUTO) 1.1 X 10^3 (0.0-1.0); MONOCYTES % (AUTO) 9 % (0-12); NEUTROPHILS # (AUTO) 7.2 X 10^3 (1.8-7.8); NEUTROPHILS % (AUTO) 62 % (42-75); PLATELET COUNT 218 10^3/uL (130-400); WHITE BLOOD COUNT 11.6 10^3/uL (4.3-11.0)
[2018-07-19 04:57] LABS: INR 1.1 (0.8-1.4); PROTHROMBIN TIME PATIENT 14.6 SEC (12.2-14.7)
[2018-07-19 05:06] LABS: ALANINE AMINOTRANSFERASE 45 U/L (0-55); ALBUMIN 3.6 GM/DL (3.2-4.5); ALKALINE PHOSPHATASE 92 U/L (40-136); BILIRUBIN,TOTAL 0.5 MG/DL (0.1-1.0); BUN/CREATININE RATIO 14; CALCIUM 7.2 MG/DL (8.5-10.1); CARBON DIOXIDE 18 MMOL/L (21-32); CHLORIDE 106 MMOL/L (98-107); CREATININE SERUM 4.29 MG/DL (0.60-1.30); GFR ESTIMATED 11; GLUCOSE 99 MG/DL (70-105); POTASSIUM 3.9 MMOL/L (3.6-5.0); SODIUM 139 MMOL/L (135-145); TOTAL PROTEIN 6.5 GM/DL (6.4-8.2)
[2018-07-19] MEDS: NS IV 1000 ML 1,000 ML IV SCH ×5 (05:10→22:09)
[2018-07-19 05:24] LABS: CLARITY,URINE SLIGHTLY CLOUDY; COLOR,URINE YELLOW; GLUCOSE, URINE (UA) NEGATIVE (NEGATIVE); KETONES,URINE 1+ (NEGATIVE); LEUKOCYTE ESTERASE ,URINE 2+ (NEGATIVE); NITRITE,URINE NEGATIVE (NEGATIVE); PH,URINE 5 (5-9); PROTEIN,URINE 2+ (NEGATIVE); UROBILINOGEN,URINE NORMAL (NORMAL)
[2018-07-19 05:33] LABS: BACTERIA,URINE MODERATE /HPF; BILIRUBIN,URINE 1+ (NEGATIVE)
[2018-07-19 05:53] LABS: FREE T4 (FREE THYROXINE) 1.53 NG/DL (0.70-1.48)
[2018-07-19] MEDS ORDERED: CALCIUM CHLORIDE 1 GM/10 ML (IMS) SYR INJ ONE (06:00)
[2018-07-19] MEDS ORDERED: CEFEPIME INJECTION 1,000 MG in WATER (STERILE) FOR INJECTION 10 ML IV ONE (06:15)
[2018-07-19] MEDS: NOREPINEPHRINE 4 MG in NS (IVPB) 250 ML IV SCH ×2 (06:21→22:09)
[2018-07-19] MEDS ORDERED: CALCIUM GLUC. 10% 4.65 MEQ/10 ML VIAL IV ONE ×2 (06:30)
[2018-07-19] MEDS ORDERED: ONDANSETRON 4 MG/2 ML (SDV) Z0FRAN ONE (06:51)
[2018-07-19] MEDS ORDERED: ONDANSETRON 4 MG/2 ML (SDV) Z0FRAN IVP ONE (07:00)
--- NOTE | 2018-07-19 07:03 | Diagnostic Imaging Report ---
Indication: Chest pain. Comparison: 07/14/2018. Discussion: Single portable upright view of the chest was obtained. Normal heart size. Elevated right hemidiaphragm. Poor inspiratory effort. Left chest wall Jqijix-i-[id number] is stable. No focal consolidation, pleural fluid, or pneumothorax. No osseous abnormality. Impression: 1. Stable negative chest. Dictated by: Dictated on workstation # [id number]
--- OUTSIDE RECORDS SUMMARY | 2018-07-19 07:08 | XMS REPORT | Clinical Summary ---
Author Author [facility] Organization [facility] Address Unknown Phone Unavailable Care Team Providers Care Vp Clinical Research Name Role Phone PCP Unavailable Source Comments Some departments are not documenting in the electronic medical record. If you do not see the information that you expected, contact Release of Information in the Health Information Management department at [phone] for further assistance in locating additional records.[facility] Allergies Not on File Medications Not on [...]
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
--- NOTE | 2018-07-19 07:28 | Diagnostic Imaging Report ---
Indication: Need for central venous access. Comparison: 07/19/2018. Discussion: Single portable upright view of the chest was obtained. Interval placement of a right IJ central venous catheter with tip at the cavoatrial junction in good position. Left-sided Rxpmit-u-Mpmo is stable. Stable normal heart size. Elevated right hemidiaphragm is again noted. No focal consolidation, pleural fluid, or pneumothorax. No osseous abnormality. Impression: 1. New right IJ central venous catheter in good position. No pneumothorax. Dictated by: Dictated on workstation # [id number]
--- NOTE | 2018-07-19 07:40 | NUR ---
TRAVIS MOISE admitted to room CU7-1, with an admitting diagnosis of UTI, Sepsis, acute renal failure, on 07/19/18 from AM via cart, accompanied by staff.TRAVIS MOISE introduced to surroundings, call light, bed controls, phone, TV, temperature control, lights, meal times, smoking policy, visitor policy, side rail policy, bathrooms and showers. Patient Rights given to patient in the handbook. TRAVIS MOISE verbalizes understanding that [facility] is not responsible for the loss or damage to any personal effects or valuables that are kept in the patients posession during their hospitalization. The following Patient Care Plans were discussed with the pt: Discharge Planning. TRAVIS MOISE verbalizes understanding of Interdisciplinary Patient Education. Patient and/or family were informed about the Rapid Response Team and its purpose.
[2018-07-19] MEDS ORDERED: ONDANSETRON 4 MG/2 ML (SDV) Z0FRAN IV PRN (08:00)
[2018-07-19] MEDS ORDERED: TRAM50TA2 PO (08:32)
[2018-07-19] MEDS ORDERED: AMLO5TAB9 PO (08:34)
[2018-07-19] MEDS ORDERED: HYDR200T78 PO (08:34)
[2018-07-19] MEDS ORDERED: HYDR25TA4 PO (08:34)
[2018-07-19 08:51] LABS: CALCIUM 8.6 MG/DL (8.5-10.1); CREATININE SERUM 3.48 MG/DL (0.60-1.30); POTASSIUM 4.2 MMOL/L (3.6-5.0)
[2018-07-19] MEDS ORDERED: RT-ALBUTEROL SULF 2.5 MG/3 ML PRE-MIX VIAL INH PRN (09:45)
[2018-07-19] MEDS ORDERED: PANT40TA3 PO (10:32)
[2018-07-19] MEDS ORDERED: ASPI1TAB PO (10:43)
[2018-07-19] MEDS ORDERED: ALBU6.7H8 IH (10:43)
[2018-07-19] MEDS ORDERED: ACYC400T PO (10:43)
[2018-07-19] MEDS ORDERED: ONDA4TAB11 PO (10:43)
[2018-07-19] MEDS ORDERED: HYDR30CR95 RC (10:43)
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
[2018-07-19] MEDS ORDERED: ENOXAPARIN 30 MG/0.3 ML (LOVENOX) SYR SC SCH (12:00)
[2018-07-19] MEDS ORDERED: HYDROCORTISONE/PRAM 1% CREAM 30 GM TUBE TOP PRN (12:15)
[2018-07-19] MEDS ORDERED: HYDROCORTISONE/PRAM 1% CREAM 30 GM TUBE RC PRN (12:15)
[2018-07-19] MEDS: RT-ALBUTEROL/IPRATROPIUM 3 ML (DUONEB) VIAL INH SCH (21:19)
[2018-07-20] VITALS (15 sets, daily range): BP systolic 97–160; BP diastolic 57–97
[2018-07-20 04:28] LABS: BASOPHILS % (AUTO) 0 % (0-10); EOSINOPHILS % (AUTO) 1 % (0-10); HEMATOCRIT 34 % (35-52); HEMOGLOBIN 10.9 G/DL (11.5-16.0); LYMPHOCYTES # (AUTO) 3.4 X 10^3 (1.0-4.0); LYMPHOCYTES % (AUTO) 52 % (12-44); MEAN CORPUSCULAR HEMOGLOBIN 29 PG (25-34); MEAN CORPUSCULAR HGB CONC 33 G/DL (32-36); MEAN CORPUSCULAR VOLUME 90 FL (80-99); MONOCYTES # (AUTO) 0.8 X 10^3 (0.0-1.0); MONOCYTES % (AUTO) 12 % (0-12); NEUTROPHILS # (AUTO) 2.3 X 10^3 (1.8-7.8); NEUTROPHILS % (AUTO) 35 % (42-75); PLATELET COUNT 172 10^3/uL (130-400); RED CELL DISTRIBUTION WIDTH 14.3 % (10.0-14.5); WHITE BLOOD COUNT 6.6 10^3/uL (4.3-11.0)
[2018-07-20 04:46] LABS: BUN/CREATININE RATIO 35; CALCIUM 8.2 MG/DL (8.5-10.1); CARBON DIOXIDE 23 MMOL/L (21-32); CHLORIDE 111 MMOL/L (98-107); CREATININE SERUM 0.89 MG/DL (0.60-1.30); GFR ESTIMATED > 60; GLUCOSE 98 MG/DL (70-105); PHOSPHORUS 1.7 MG/DL (2.3-4.7); POTASSIUM 4.3 MMOL/L (3.6-5.0); SODIUM 143 MMOL/L (135-145)
[2018-07-20] MEDS: NS IV 1000 ML 1,000 ML IV SCH ×3 (05:40→18:54)
[2018-07-20] MEDS ORDERED: POTASSIUM CL 10MEQ/50ML IVPB 50 ML IV SCH (06:00)
[2018-07-20] MEDS ORDERED: KCL 20 MEQ TAB (K-DUR) PO SCH (06:00)
[2018-07-20] MEDS ORDERED: MAGNESIUM 1 GM/100 ML IVPB 100 ML IV SCH (06:00)
--- NOTE | 2018-07-20 06:09 | Pulmonary Consultation ---
History of Present Illness History of Present Illness Date of Consultation 07/20/18 06:04 Time Seen by Provider: 06:04 Date of Admission History of Present Illness 48yo with hx of RA and on Plaquenil presented to ED secondary to n/V that started 2-3 days prior to admission. She was unable to keep any food or liquids down. symptoms progressed to weakness and confusion. Pt was dx with severe dehydration, hypotension, and ANASTACIA. I am consulted for ICU management. Allergies and Home Medications Allergies Coded Allergies: methotrexate (Verified Allergy, Severe, SEIZURE, 07/19/18) nitrofurantoin (Verified Allergy, Mild, 07/19/18) ziprasidone (Verified Allergy, Mild, 07/19/18) aripiprazole (Verified Adverse Reaction, Intermediate, TONGUE SWELLING, 02/27) Home Medications Acyclovir 400 Mg Tablet, 400 MG PO DAILY PRN for RASH, (Reported) Albuterol Sulfate 6.7 Gm Hfa.aer.ad, 1 PUFF IH Q4H PRN for SHORTNESS OF BREATH, (Reported) Amlodipine Besylate 5 Mg Tablet, 5 MG PO DAILY, (Reported) Aspirin/Acetaminophen/Caffeine 1 Each Tablet, 1 EACH PO DAILY PRN for MIGRAINE, (Reported) Atenolol 50 Mg Tablet, 50 MG PO DAILY, (Reported) Hydrochlorothiazide 25 Mg Tablet, 25 MG PO DAILY, (Reported) Hydrocortisone 30 Gm Cream.appl, 1 APPLIC RC PRN PRN for ITCHING, (Reported) Hydroxychloroquine Sulfate 200 Mg Tablet, 200 MG PO BID, (Reported) Lisinopril 40 Mg Tablet, 40 MG PO DAILY, (Reported) Ondansetron 4 Mg Tab.rapdis, 4 MG PO Q4H PRN for NAUSEA/VOMITING-1ST LINE, ( Reported) Pantoprazole Sodium 40 Mg Tablet.dr, 40 MG PO DAILY, (Reported) Tramadol HCl 50 Mg Tablet, 50 MG PO BID PRN for PAIN-MILD TO MODERATE, (Reported ) Past Shshwax-Tapdvm-Vntqzs Hx Past Med/Social Hx: Reviewed Nursing Past Med/Soc Hx Patient Social History Alcohol Use: Denies Use Recreational Drug Use: No Drug of Choice: Hx THC, + IV METH Smoking Status: Current Everyday Smoker Type Used: Cigarettes 2nd Hand Smoke Exposure: No Recent Foreign Travel: No Contact w/Someone Who Travel: No Recent Infectious Disease Expo: No Recent Hopitalizations: No Immunizations Up To Date Tetanus Booster (TDap): More than 5yrs PED Vaccines UTD: No Date of Influenza Vaccine: Jan 10, 2018 Seasonal Allergies Seasonal Allergies: No Past Medical History Surgeries: Yes Adenoidectomy, Breast, Cardiac, Gallbladder, 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, Oophorectomy, Tonsillectomy, Vascular Surgery Respiratory: Yes (SPONTANEOUS RIGHT PNEUMOTHORAX) Pneumonia, Chronic Bronchitis, COPD Cardiac: Yes Hypertension Neurological: Yes Concussion, Headaches /Migraines, Seizure Disorder, Stroke, Traumatic Brain Injury 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 Disorders: 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 Sexually Transmitted Disease: No Genitourinary: Yes Bladder Infection, Kidney Stones Gastrointestinal: Yes (HEPATITIS C --NO TREATMENT) Gastroesophageal Reflux, Liver Disease/Jaundice, Chronic Constipation, Pancreatitis, Chronic Diarrhea, Hepatitis, Ulcer Musculoskeletal: Yes Degenerate Disk Disease, Arthritis, Fibromyalgia, Rheumatoid Arthritis, Back Injury, Chronic Back Pain, Fractures Endocrine: No HEENT: No (EDENTULOUS) Cancer: No Psychosocial: Yes (PLYSUBSTANCE ABUSE) Anxiety, Bipolar, Depression Integumentary: No Blood Disorders: No Family Medical History Reviewed Nursing Family Hx Review of Systems Time Seen by Provider: 07:18 Constitutional: Sweats, Weakness, Malaise; No: Fever, Chills, Other Eyes: No: Pain, Vision change, Conjunctivae inflammation, Eyelid inflammation, Other, Redness ENT: No: Ear pain, Ear discharge, Nose pain, Nose discharge, Nose congestion, Mouth pain, Mouth swelling, Throat pain, Throat swelling, Other Respiratory: No: Cough, Dry, Shortness of breath, SOB with excertion, Wheezing , Hemoptysis, Pleuritic Pain, Sputum, Wheezing, Other Cardiovascular: Palpitations, Lt Headedness Gastrointestinal: Nausea, Vomiting; No: Diarrhea, Constipation Genitourinary: No Dysuria, No Frequency, No Incontinence, No Hematuria, No Retention, No Other Neurological: Weakness, Incoordination, Confusion Sepsis Event Evaluation Height, Weight, BMI Height: 5'0.00" Weight: 191lbs. 2.0oz. 86.178804lu; 37.3 BMI Method:Stated Exam Exam Vital Signs Date Time Temp Pulse Resp B/P (MAP) Pulse Ox O2 Delivery O2 Flow Rate FiO2 07/20/18 05:00 90 21 101/64 (76) 98 Room Air 07/20/18 04:34 99.0 07/20/18 04:00 Room Air 07/20/18 04:00 92 17 137/63 (87) 98 Room Air 07/20/18 03:00 91 16 128/76 (93) 98 Room Air 07/20/18 02:00 95 15 130/76 (94) 97 Room Air 07/20/18 01:00 112 17 137/97 (110) 93 Room Air 07/20/18 01:00 105 07/20/18 00:00 Room Air 07/20/18 00:00 101 16 128/57 (80) 97 Room Air 07/20/18 00:00 99.8 07/19/18 23:00 99 22 111/61 (78) 95 Room Air 07/19/18 22:00 99 16 123/71 (88) 100 Room Air 07/19/18 21:19 97 Room Air 07/19/18 21:00 96 23 122/62 (82) 98 Room Air 07/19/18 20:00 Room Air 07/19/18 20:00 102 17 115/61 (79) 95 Room Air 07/19/18 19:56 99.4 07/19/18 19:00 105 24 120/91 (101) 97 Room Air 07/19/18 19:00 105 07/19/18 18:00 102 17 132/73 (92) 100 Room Air 07/19/18 17:00 102 10 107/61 (76) Room Air 07/19/18 16:11 96 Room Air 07/19/18 16:10 98.1 07/19/18 16:00 80 11 104/66 (79) 96 Room Air 07/19/18 15:00 86 15 81/52 (62) 92 Room Air 07/19/18 14:00 105 12 70/49 (56) 93 Room Air 07/19/18 13:00 107 15 117/55 (75) 98 Room Air 07/19/18 13:00 103 07/19/18 12:00 105 30 83/69 (74) 95 Room Air 07/19/18 11:28 98.6 07/19/18 11:28 95 Room Air 07/19/18 11:00 97 27 103/40 (61) 95 Room Air 07/19/18 10:00 89 12 69/40 (50) 97 Room Air 3/10/19 09:34 97 95 21 07/19/18 09:00 99 22 100/52 (68) 94 Room Air 07/19/18 08:00 97 18 110/74 (86) 96 Room Air 07/19/18 07:45 98 24 127/68 (87) 96 Room Air 07/19/18 07:45 96 07/19/18 07:40 99.1 07/19/18 07:40 Room Air 07/19/18 07:35 97.4 92 17 125/90 (102) 97 Room Air I & O 07/20/18 07:00 Intake Total 6754 ml Output Total 4300 ml Balance 2454 ml Height & Weight Height: 5'0.00" Weight: 191lbs. 2.0oz. 86.021327on; 37.3 BMI Method:Stated General Appearance: No Apparent Distress, WD/WN HEENT: PERRL/EOMI, Pharynx Normal Neck: Non Tender, Supple Respiratory: Lungs Clear, Normal Breath Sounds, Other (tender to right anterior upper chest wall) Cardiovascular: Regular Rate, Rhythm, No Murmur Capillary Refill: Less Than 3 Seconds Gastrointestinal: soft Extremity: Normal Range of Motion, Non Tender, No Calf Tenderness Neurologic/Psychiatric: Alert, Oriented x3 Skin: Normal Color, Warm/Dry Results Lab Laboratory Tests 07/19/18 04:30 07/19/18 08:20 07/20/18 04:20 Assessment/Plan Assessment/Plan UTI with severe septic shock - present on admission -S/p 30cc/kg -Cefepime -Ta cultures -Levophed - titrate to D/C -NS going 150 severe dehydration -IVF ANASTACIA -Monitor -IVF Hypophos -replace Tobacco use -Education -Currently on RA Anemia -Monitor CHANTEL MARQUEZ DO Jul 20, 2018 06:09
[2018-07-20] MEDS ORDERED: SODIUM PHOSPHATE INJ 30 MM in NS (IVPB) 250 ML IV ONE (06:15)
[2018-07-20] MEDS ORDERED: CEFEPIME 1,000 MG/SWFI 10 ML IV PUSH IV SCH ×4 (07:00→13:00)
--- NOTE | 2018-07-20 08:29 | Diagnostic Imaging Report ---
INDICATION: Dyspnea. TIME OF EXAM: 3:47 AM Correlation is made with prior study from one day earlier. FINDINGS: Heart size is stable. Lungs are clear apart from some subsegmental atelectasis right suprahilar region. No effusion or pneumothorax is seen. IMPRESSION: Right-sided subsegmental atelectasis. Dictated by: Dictated on workstation # [id number]
[2018-07-20] MEDS: RT-ALBUTEROL/IPRATROPIUM 3 ML (DUONEB) VIAL INH SCH ×2 (08:36→20:33)
[2018-07-20] MEDS: PANTOPRAZOLE 40 MG (PROTONIX) TAB PO SCH (09:00)
--- NOTE | 2018-07-20 09:42 | NUR ---
Pt in room with curtain and door closed and lights off. Staff state pt has demonstrated irritability with nursing staff. Pt's spouse not present, however has been with the pt.
--- NOTE | 2018-07-20 11:00 | Progress Note-Hospitalist ---
Subjective HPI/CC On Admission Date Seen by Provider: Jul 20, 2018 Time Seen by Provider: 10:00 Subjective/Events-last exam Patient doing much better Off pressors therapy Responded to aggressive IV fluid and now creatinine is normal Will advance diet Overall feels good but weak Hurts all over Review of Systems General: Fatigue Gastrointestinal: Nausea Focused Exam Lactate Level 07/19/18 01:20: Lactic Acid Level 1.90 Objective Exam Vital Signs Vital Signs Date Time Temp Pulse Resp B/P (MAP) Pulse Ox O2 Delivery O2 Flow Rate FiO2 07/20/18 11:00 97.0 101 20 129/73 (91) Room Air 07/20/18 08:37 95 07/19/18 09:34 21 Capillary Refill : Less Than 3 Seconds General Appearance: No Apparent Distress, WD/WN, Chronically ill HEENT: PERRL/EOMI, Pharynx Normal Neck: Non Tender, Supple Respiratory: Lungs Clear, Normal Breath Sounds, Other (tender to right anterior upper chest wall) Cardiovascular: Regular Rate, Rhythm, No Edema, No Murmur Gastrointestinal: Non Tender, Soft Back: Normal Inspection, No CVA Tenderness, No Vertebral Tenderness Extremity: Normal Range of Motion, Non Tender, No Calf Tenderness Neurologic/Psychiatric: Alert, Oriented x3 Skin: Normal Color, Warm/Dry Results/Procedures Lab Laboratory Tests 07/20/18 04:20 Patient resulted labs reviewed. Assessment/Plan Assessment and Plan Assess & Plan/Chief Complaint 1. Dehydration 2. ANASTACIA secondary to #1 3. Hypotension 4. Possible UTI Plan: Move to 4th floor Ambulate DC abx since no UTI on UCx contaminant Diagnosis/Problems Diagnosis/Problems (1) Acute renal failure Status: Resolved Qualifiers: Acute renal failure type: unspecified Qualified Codes: N17.9 - Acute kidney failure, unspecified Resolution Date/Time: 07/20/18 @ 11:49 (2) Hypotension Status: Resolved Resolution Date/Time: 07/20/18 @ 11:49 (3) Dehydration Status: Resolved Clinical Quality Measures AMI/AHF: ASA po Prior to arrival: No DVT/VTE Risk/Contraindication: Risk Factor Score Per Nursin RFS Level Per Nursing on Admit: 3=High Risk Score Comment: NELSON Chin DO Jul 20, 2018 11:00
[2018-07-20] MEDS ORDERED: ENOXAPARIN 40 MG/0.4 ML (LOVENOX) SYR SC SCH (12:00)
[2018-07-20] MEDS: CEFEPIME 1,000 MG/SWFI 10 ML IV PUSH IV SCH ×4 (15:24→18:52)
--- NOTE | 2018-07-20 15:26 | NUR ---
THIS RN AGREES WITH THE PREVIOUS RN PHYSICAL ASSESSMENT. THIS R WILL CONT. TO MONITOR THIS PATIENT THROUGHOUT THE REMAINDER OF THIS SHIFT
[2018-07-20] MEDS ORDERED: HYDROCORTISONE 2.5% CREAM (ANUSOL-HC) 30 GM TOP PRN (18:00)
[2018-07-20] MEDS ORDERED: LOPERAMIDE 2 MG (IMODIUM) CAP PO PRN (18:00)
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
[2018-07-21 00:04] VITALS: BP 121/63
[2018-07-21] MEDS: CEFEPIME 1,000 MG/SWFI 10 ML IV PUSH IV SCH ×4 (00:04→06:00)
[2018-07-21] MEDS: NS IV 1000 ML 1,000 ML IV SCH ×2 (02:05→09:20)
--- NOTE | 2018-07-21 03:35 | NUR ---
pt reports nausea-prn zofran given
[2018-07-21 04:00] VITALS: BP 120/60
[2018-07-21 06:12] LABS: BASOPHILS % (AUTO) 0 % (0-10); EOSINOPHILS # (AUTO) 0.1 10^3/uL (0.0-0.3); EOSINOPHILS % (AUTO) 1 % (0-10); HEMATOCRIT 33 % (35-52); HEMOGLOBIN 10.6 G/DL (11.5-16.0); LYMPHOCYTES # (AUTO) 2.9 X 10^3 (1.0-4.0); LYMPHOCYTES % (AUTO) 58 % (12-44); MEAN CORPUSCULAR HEMOGLOBIN 29 PG (25-34); MEAN CORPUSCULAR HGB CONC 32 G/DL (32-36); MEAN CORPUSCULAR VOLUME 90 FL (80-99); MONOCYTES # (AUTO) 0.6 X 10^3 (0.0-1.0); MONOCYTES % (AUTO) 12 % (0-12); NEUTROPHILS # (AUTO) 1.4 X 10^3 (1.8-7.8); NEUTROPHILS % (AUTO) 28 % (42-75); PLATELET COUNT 168 10^3/uL (130-400); RED CELL DISTRIBUTION WIDTH 14.1 % (10.0-14.5); WHITE BLOOD COUNT 4.9 10^3/uL (4.3-11.0)
[2018-07-21 06:29] LABS: BUN/CREATININE RATIO 17; CALCIUM 8.1 MG/DL (8.5-10.1); CARBON DIOXIDE 23 MMOL/L (21-32); CHLORIDE 113 MMOL/L (98-107); CREATININE SERUM 0.72 MG/DL (0.60-1.30); GFR ESTIMATED > 60; GLUCOSE 106 MG/DL (70-105); POTASSIUM 4.1 MMOL/L (3.6-5.0); SODIUM 142 MMOL/L (135-145)
[2018-07-21 08:00] VITALS: BP 155/71
--- NOTE | 2018-07-21 08:11 | Diagnostic Imaging Report ---
Indication: Dyspnea. Comparison: 07/21/2018. Findings: Stable right IJ central venous catheter and left subclavian Port-A-Cath. Visualized lungs are clear. Posterior lower lobes are poorly evaluated by portable radiography. No pleural effusion or pneumothorax. Normal heart size and mediastinal shadow. Impression: No acute process. Dictated by: Dictated on workstation # [id number]
[2018-07-21] MEDS: PANTOPRAZOLE 40 MG (PROTONIX) TAB PO SCH (08:27)
--- NOTE | 2018-07-21 10:22 | Pulmonary Progress Note ---
Sepsis Event Evaluation Height, Weight, BMI Height: 5'0.00" Weight: 190lbs. 0.0oz. 86.463320oj; 37.3 BMI Method:Stated Focused Exam Lactate Level 07/19/18 01:20: Lactic Acid Level 1.90 Exam Exam Vital Signs Date Time Temp Pulse Resp B/P (MAP) Pulse Ox O2 Delivery O2 Flow Rate FiO2 07/21/18 09:00 Room Air 07/21/18 08:00 98.5 89 20 155/71 (99) 94 Room Air 07/21/18 04:00 98.0 90 20 120/60 (80) 96 Room Air 07/21/18 00:04 98.9 111 20 121/63 (82) 96 Room Air 07/20/18 21:00 Room Air 07/20/18 20:34 93 Room Air 07/20/18 19:21 99.2 105 18 157/96 (116) 97 Room Air 07/20/18 15:56 98.2 108 18 160/65 (96) 96 Room Air 07/20/18 12:00 97.0 101 20 129/73 (91) Room Air 07/20/18 11:00 101 18 134/67 (89) Room Air 07/20/18 11:00 97.0 101 20 129/73 (91) Room Air I & O 07/21/18 06:59 Intake Total 4950 ml Output Total 900 ml Balance 4050 ml Height & Weight Height: 5'0.00" Weight: 190lbs. 0.0oz. 86.942004ij; 37.3 BMI Method:Stated General Appearance: No Apparent Distress, WD/WN, Chronically ill HEENT: PERRL/EOMI, Pharynx Normal Neck: Non Tender, Supple Respiratory: Lungs Clear, Normal Breath Sounds, Other (tender to right anterior upper chest wall) Cardiovascular: Regular Rate, Rhythm, No Edema, No Murmur Capillary Refill: Less Than 3 Seconds Gastrointestinal: soft Extremity: Normal Range of Motion, Non Tender, No Calf Tenderness Neurologic/Psychiatric: Alert, Oriented x3 Skin: Normal Color, Warm/Dry Results Lab Laboratory Tests 07/20/18 04:20 07/21/18 06:00 Assessment/Plan Assessment/Plan UTI with severe septic shock - present on admission -S/p 30cc/kg -Cefepime -Ta cultures -Levophed - titrate to D/C -NS going 150 severe dehydration -IVF ANASTACIA -Monitor -IVF Hypophos -replace Tobacco use -Education -Currently on RA Anemia -Monitor CHANTEL MARQUEZ DO Jul 21, 2018 10:22
[2018-07-21] MEDS: RT-ALBUTEROL/IPRATROPIUM 3 ML (DUONEB) VIAL INH SCH (10:23)
[2018-07-21] MEDS ORDERED: HYDR30CR95 RC (10:48)
[2018-07-21] MEDS ORDERED: ALBU6.7H8 IH (10:48)
[2018-07-21] MEDS ORDERED: AMLO5TAB9 PO (10:48)
[2018-07-21] MEDS ORDERED: PANT40TA3 PO (10:48)
[2018-07-21] MEDS ORDERED: TRAM50TA2 PO (10:48)
[2018-07-21] MEDS ORDERED: ATEN50TA PO (10:48)
[2018-07-21] MEDS ORDERED: ONDA4TAB11 PO (10:48)
--- NOTE | 2018-07-21 10:49 | Discharge Summary-Hospitalist ---
Diagnosis/Chief Complaint Date of Admission Jul 19, 2018 at 07:04 Date of Discharge Discharge Date: Jul 21, 2018 Discharge Diagnosis UTI with severe septic shock - present on admission Severe dehydration ARF Smoker Anemia (1) Acute renal failure Status: Resolved (2) Hypotension Status: Resolved (3) Dehydration Status: Resolved (4) Smoker Status: Chronic (5) Abnormal urinalysis Status: Acute (6) Urinary tract infection Status: Resolved (7) Septic shock Status: Resolved Discharge Summary Discharge Physical Exam Allergies: Coded Allergies: methotrexate (Verified Allergy, Severe, SEIZURE, 07/19/18) nitrofurantoin (Verified Allergy, Mild, 07/19/18) ziprasidone (Verified Allergy, Mild, 07/19/18) aripiprazole (Verified Adverse Reaction, Intermediate, TONGUE SWELLING, 02/27) Vitals & I&Os Vital Signs Date Time Temp Pulse Resp B/P (MAP) Pulse Ox O2 Delivery O2 Flow Rate FiO2 07/21/18 11:20 89 20 155/71 94 Room Air 07/21/18 08:00 98.5 07/19/18 09:34 21 General Appearance: No Apparent Distress, WD/WN, Chronically ill Respiratory: Chest Non Tender, Lungs Clear, Normal Breath Sounds, No Accessory Muscle Use, No Respiratory Distress Cardiovascular: Regular Rate, Rhythm, No Edema, No Gallop, No JVD, No Murmur, Normal Peripheral Pulses Neurologic/Psychiatric: Alert, Oriented x3, No Motor/Sensory Deficits, Normal Mood/Affect Hospital Course Was the Problem List Reviewed?: Yes Hospital Course: Pt had a brief but intense hospital course most of of it in the ICU due to severe sepsis septic shock and acute renal failure due to profound dehydration and multiple meds contributing to the renal failure. All meds were stopped from her home list and pt was aggressively necessitated with IV fluids . Pt was placed on empiric antibiotic coverage for presumed UTI but that ended up having a contaminant so on day of DC creatinine resumed normal level and was in the process of moving her PCP to another entity so all medications she will be on withholding Hydrochlorothiazide and Lisinopril were sent to [facility] [place]. Overall prognosis poor considering her inability to maintain compliance with medical treatments. Labs (last 24 hrs) Laboratory Tests 07/21/18 06:00: White Blood Count 4.9, Red Blood Count 3.65L, Hemoglobin 10.6L, Hematocrit 33L, Mean Corpuscular Volume 90, Mean Corpuscular Hemoglobin 29, Mean Corpuscular Hemoglobin Concent 32, Red Cell Distribution Width 14.1, Platelet Count 168, Mean Platelet Volume 10.0, Neutrophils (%) (Auto) 28L, Lymphocytes (%) (Auto) 58H, Monocytes (%) (Auto) 12, Eosinophils (%) (Auto) 1, Basophils (%) (Auto) 0, Neutrophils # (Auto) 1.4L, Lymphocytes # (Auto) 2.9, Monocytes # (Auto) 0.6, Eosinophils # (Auto) 0.1, Basophils # (Auto) 0.0, Sodium Level 142, Potassium Level 4.1, Chloride Level 113H, Carbon Dioxide Level 23, Anion Gap 6, Blood Urea Nitrogen 12, Creatinine 0.72, Estimat Glomerular Filtration Rate > 60, BUN/ Creatinine Ratio 17, Glucose Level 106H, Calcium Level 8.1L Microbiology 07/19/18 Blood Culture - Preliminary, Resulted Staph, 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 Pending Labs Discussion & Recommendations Discharge Planning: <30 minutes discharge planning Discharge Home Medications: Active Scripts Active Proventil Hfa (Albuterol Sulfate) 6.7 Gm Hfa.aer.ad 1 Puff IH Q4H PRN Procto-Med Hc (Hydrocortisone) 30 Gm Cream.appl 1 Applic RC PRN PRN Ondansetron Odt (Ondansetron) 4 Mg Tab.rapdis 4 Mg PO Q4H PRN Pantoprazole Sodium 40 Mg Tablet.dr 40 Mg PO DAILY Amlodipine Besylate 5 Mg Tablet 5 Mg PO DAILY Tramadol HCl 50 Mg Tablet 50 Mg PO BID PRN Atenolol 50 Mg Tablet 50 Mg PO DAILY Reported Sb Pain Relief E-S Tablet (Aspirin/Acetaminophen/Caffeine) 1 Each Tablet 1 Each PO DAILY PRN Acyclovir 400 Mg Tablet 400 Mg PO DAILY PRN Plaquenil (Hydroxychloroquine Sulfate) 200 Mg Tablet 200 Mg PO BID Instructions to patient/family Please see electronic discharge instructions given to patient. Clinical Quality Measures AMI/AHF: ASA po Prior to arrival: No DVT/VTE Risk/Contraindication: Risk Factor Score Per Nursin RFS Level Per Nursing on Admit: 3=High Risk Score Comment: Lovenox Problem Qualifiers (1) Acute renal failure: Acute renal failure type: unspecified Qualified Codes: N17.9 - Acute kidney failure, unspecified (2) Urinary tract infection: Urinary tract infection type: acute cystitis Hematuria presence: without hematuria Qualified Codes: N30.00 - Acute cystitis without hematuria NELSON ROBERTSON DO Jul 21, 2018 10:49
[2018-07-21 11:20] VITALS: BP 155/71
== END 2018-07-21 11:10 | disposition home or self-care (01) | DRG 871 ==
LOC: EDUNIT# 00:20 → ER 00:21 → ICU 07:04 → 4TH 07-20 11:15
PROVIDERS: ADMIT Family Medicine; ATTEND Family Medicine
PROC: 02HV33Z Insertion of Infusion Device into Superior Vena Cava, Percutaneous Approach (ICD-10-PCS; principal; 2018-07-19)
DX: A41.9 Sepsis, unspecified organism (principal); R65.21 Severe sepsis with septic shock; N39.0 Urinary tract infection, site not specified; N17.9 Acute kidney failure, unspecified; E86.0 Dehydration; I95.9 Hypotension, unspecified; E83.51 Hypocalcemia; E83.39 Other disorders of phosphorus metabolism; D64.9 Anemia, unspecified; M06.9 Rheumatoid arthritis, unspecified; F17.210 Nicotine dependence, cigarettes, uncomplicated; J44.9 Chronic obstructive pulmonary disease, unspecified; I10 Essential (primary) hypertension; B19.20 Unspecified viral hepatitis C without hepatic coma; G40.909 Epilepsy, unspecified, not intractable, without status epilepticus; K21.9 Gastro-esophageal reflux disease without esophagitis; K59.09 Other constipation; F31.9 Bipolar disorder, unspecified; Z87.820 Personal history of traumatic brain injury
CPT/HCPCS: 36415; 71045; 80048; 80053; 81000; 83605; 83735; 84100; 84439; 84443; 84484; 85025; 85610; 85730; 87040; 87081; 87088; 87804; 93005; 94640; 99291

== ENCOUNTER 2018-08-24 05:35 | Outpatient (CLI) | payer MEDICAID ==
[~2018-08-24] VITALS: Ht 152.4 cm; Wt 82.6 kg
[~2018-08-24 05:35] MED LIST changes: +ACYC400T PO; +ALBU6.7H8 IH; +AMLO5TAB9 PO; +ASPI1TAB PO; +HYDR200T78 PO; +HYDR25TA4 PO; +HYDR30CR95 RC; +ONDA4TAB11 PO; +PANT40TA3 PO
== END 2018-08-24 16:24 | disposition home or self-care (01) ==
LOC: PREOP 05:35
PROVIDERS: ATTEND Surgery
DX: Z01.818 Encounter for other preprocedural examination (principal)

== ENCOUNTER 2018-08-27 08:03 | Day surgery (SDC) | payer MEDICAID ==
[~2018-08-27] VITALS: Ht 152.4 cm; Wt 82.6 kg
--- OUTSIDE RECORDS SUMMARY | 2018-08-27 08:12 | XMS REPORT | Clinical Summary ---
Author Author [facility] Organization [facility] Address Unknown Phone Unavailable Care Team Providers Care Nutritional Health Coach Name Role Phone PCP Unavailable Source Comments Some departments are not documenting in the electronic medical record. If you do not see the information that you expected, contact Release of Information in the Health Information Management department at [phone] for further assistance in locating additional records.[facility] Allergies Not on File Medications Not on [...]
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
--- OUTSIDE RECORDS SUMMARY | 2018-08-27 08:14 | XMS REPORT ---
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 Name Role Phone Migration, Doctor Unavailable Unavailable PROBLEMS Type Condition ICD9-CM Code BPN95-AA Code Onset Dates Condition Status SNOMED Code Problem Chronic obstructive pulmonary disease, unspecified COPD type J44.9 Active 09019663 Problem Chronic hepatitis C B18.2 Active 980609333 Problem Anxiety F41.9 Active 28843356 Problem Essential hypertension I10 Active 88396788 Problem Epilepsy, unspecified, not intractable, without status epilepticus G40.909 Active 243296953 Problem 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 Active [id number] Problem Rheumatoid arthritis involving multiple sites, unspecified rheumatoid factor presence M06.9 Active 771421080 Problem Panic attacks F41.0 Active 417916037 Problem Depressive disorder, not elsewhere classified F32.9 Active 00612710 Problem Porokeratosis Q82.8 Active 537707149 Problem Other chronic pain G89.29 Active 96133372 Problem COPD exacerbation J44.1 Active 380790872 Problem Seasonal allergic rhinitis, unspecified allergic rhinitis trigger J30.2 Active 411293779 Problem 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 Active 41753962 Problem Lumbar radiculopathy, chronic M54.16 Active 466032872 Problem Gastroesophageal reflux disease without esophagitis K21.9 Active 719334441 Problem Methamphetamine abuse F15.10 Active 466082867 Problem Situational depression F43.21 Active 50715882 Problem MDD (major depressive disorder), recurrent episode, moderate F33.1 Active 914812039 Problem KARY (generalized anxiety disorder) F41.1 Active 01113446 Problem Psoriasis L40.9 Active 4054600 ALLERGIES No Information ENCOUNTERS Encounter Location Date Diagnosis [facility] [address] [address] Aug, 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 [facility] [address] [address] Jul, Essential hypertension I10 and Lumbar radiculopathy, chronic M54.16 [facility] [id number] [place] [address] 50197- 8577 Jul, [facility] [id number] [place] [address] 04109- 7834 Jul, Cervical radiculopathy M54.12 [facility] [address] [address] Jun, Shortness of breath R06.02 and COPD exacerbation J44.1 [place] [address] 28265- [address]841 May, [facility] [address] [address]40- [address] May, Cervical radiculopathy M54.12 and Low back pain M54.5 [place] [id number] [place] [address] 90370- 6927 Apr, Screening for breast cancer Z12.31 [place] [address] 6[address]- [address]63 Apr, Chronic obstructive pulmonary disease, unspecified COPD type J44.9 [facility] [id number] [place] [address] 64060- 1476 Apr, [facility] [id number] [place] [address] 59753- 6702 Apr, Essential hypertension I10 [place] [id number] [place] [address] 45790- 2724 Apr, Essential hypertension I10 ; Psoriasis L40.9 and Epistaxis R04.0 [facility] [id number] [place] [address] 89224- 0438 Apr, [place] [address] 35047- 4058 Mar, MDD (major depressive disorder), recurrent episode, moderate F33.1 [place] [id number] [place] [address] 74291- 1450 08 Mar, 2018 MDD (major depressive disorder), recurrent episode, moderate F33.1 and AKRY (generalized anxiety disorder) F41.1 [place] [id number] [place] [address] 30611- 3509 18 Feb, 2018 Acute non-recurrent pansinusitis J01.40 and Encounter for immunization Z23 [address] [address]- [address] 04 Feb, 2018 Situational depression F43.21 and Screening for breast cancer Z12.[address] 54953- 2625 Feb, Chronic obstructive pulmonary disease, unspecified COPD type J44.[address] 74661- 5394 Oct, Essential hypertension I10 ; Rheumatoid arthritis involving multiple sites, unspecified rheumatoid factor presence M06.9 and Chronic hepatitis C B18.2 [place] [id number] [place] [address] 74870- 5539 Oct, [place] [id number] [place] [address] 35195- 0114 Oct, Fissure in skin of foot R23.4 [place] [id number] [place] [address] 73764- 8051 Oct, Essential hypertension I10 [place] [id number] [place] [address] 05030- 0111 Oct, 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 [place] [id number] [place] [address] 41770- 5369 September, [place] [id number] [place] [address] 11629- 0976 September, Pain in right ankle and joints of right foot M25.571 and Other chronic pain G89.29 [place] [address] 78328- 5865 Aug, Essential hypertension I10 ; Rheumatoid arthritis involving multiple sites, unspecified rheumatoid factor presence M06.9 ; Gastroesophageal reflux disease without esophagitis K21.9 ; Anxiety F41.9 ; 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 and Dermatitis L30.9 [place] [address] 04419- 4104 Aug, Onychomycosis B35.1 ; Peroneal tendinitis, unspecified laterality M76.70 and Porokeratosis Q82.[address] 22796- 2832 Jul, Porokeratosis Q82.8 ; Hyperhidrosis L74.519 and Callus of foot L84 [address] 16823- 8791 Apr, [place] [address] 38910- 6125 Apr, [address] 96866- 7612 Mar, Well woman exam (no gynecological exam) Z00.00 ; Plantar wart B07.0 ; Pain of left foot M79.672 ; Pain in right foot M79.671 and Rheumatoid arthritis involving multiple sites, unspecified rheumatoid factor presence M06.9 [place] [id number] [place] [address] 99850- 2977 Nov, Bilateral low back pain, with sciatica presence unspecified M54.5 [place] [address] 15008- 8189 Oct, Chronic obstructive pulmonary disease, unspecified COPD type J44.9 [place] [address] 26805- 8193 September, [place] [address] [id number] [place] [address] 62159- 9339 September, Bilateral low back pain, with sciatica presence unspecified M54.5 [facility] [id number] [place] [address] 32790 -2901 September, Body aches R52 and Upper respiratory infection, acute J06.9 [facility] [address] [place] [address] September, [facility] [address] 33328 [address] September, Left wrist injury, initial encounter S69.92XA and Contusion of wrist, left S60.212A [place] [address] 33570- 6278 Aug, Depressive disorder, not elsewhere classified F32.9 [facility] [address] 92934 -[address]8 Jul, Seasonal allergic rhinitis, unspecified allergic rhinitis trigger J30.2 ; Rheumatoid arthritis flare M06.9 and Essential hypertension I10 [place] [address] 14508- 3185 Jul, [place] [address] 91283- 7701 Jul, Essential hypertension I10 [place] [address] 67588- 8200 Jul, Essential hypertension I10 ; Other chronic pain G89.29 ; Rheumatoid arthritis involving multiple sites, unspecified rheumatoid factor presence M06.9 and Insomnia due to medical condition G47.01 [place] [address] 23324- 1710 Jul, [place] [address] 15356- 5241 Jul, [place] [address] 06959- 1485 Jun, [place] [id number] [place] [address] 73498- 2241 Jun, 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 ; Essential hypertension I10 ; Chronic obstructive pulmonary disease, unspecified COPD type J44.9 ; Panic attacks F41.0 ; Hot flashes R23.2 ; Rheumatoid arthritis involving multiple sites, unspecified rheumatoid factor presence M06.9 ; Pain in thoracic spine M54.6 ; Other chronic pain G89.29 and Arthralgia, unspecified joint M25.50 [facility] [address] [place] [address] 16382 -2923 May, Rheumatoid arthritis flare M06.9 [facility] [place] [id number] [place] [address] 18703 -7591 17 May, 2016 Left lower quadrant pain R10.32 ; Abdominal pain in female R10.9 ; Constipation, unspecified constipation type K59.00 and Gastroesophageal reflux disease without esophagitis K21.9 [facility] [place] [id number] [place] [address] 18125 -7525 Mar, Herpes genitalis in women A60.09 ; Bilateral impacted cerumen H61.23 and Injury of right ring finger, initial encounter S69.91XA [place] [id number] [place] [address] 51644- 1507 Mar, [address] 57511- 8312 Nov, Essential hypertension I10 ; Chronic hepatitis C B18.2 ; Arthralgia, unspecified joint M25.50 ; Chronic obstructive pulmonary disease, unspecified COPD type J44.9 ; Methamphetamine abuse F15.10 ; Simple chronic bronchitis J41.0 ; Hemorrhoids, unspecified hemorrhoid type K64.9 and Anxiety F41.9 [facility] [address] [place] [id number] [place] [address] 63128 -2947 Nov, [address] 56759- 4092 Feb, Elevated glucose R73.09 [facility] [address] [place] [address] 09620- 8864 Feb, Elevated glucose R73.09 [facility] [id number] [place] [address] 06898- 1486 Oct, [facility] [id number] [place] [address] 12791- 0269 Oct, [facility] [id number] [place] [address] 59124- 8261 Oct, Essential hypertension, benign 401.1 ; Chronic hepatitis C without mention of hepatic coma 070.54 ; Anxiety state, unspecified 300.00 ; Genital herpes 054.10 ; Methamphetamine abuse 305.70 and Excessive cerumen in both ear canals 380.4 [facility] [id number] [place] [address] 29895- 7914 Oct, [facility] [id number] [place] [address] 92546- 7518 Aug, [facility] [id number] [place] [address] 40823- 8583 Aug, [facility] [id number] [place] [address] 42050- 4299 Jul, [facility] [address] [place] [address] 07865- 1101 Jul, [facility] [id number] [place] [address] 63498- 7265 Jun, [facility] [id number] [place] [address] 96427- 1540 Jun, [facility] [id number] [place] [address] 911187- 2184 Jun, [facility] [id number] [place] [address] 19448- 6466 Jun, [facility] [place] [facility] [address] [id number] [place] [address]- 4578 May, [facility] [place] [facility] [address] [id number] [place] [address]- 4133 May, [facility] [place] [facility] [address] [id number] [place] [address]- 8211 May, [facility] [place] [facility] [address] [id number] [place] [address]- 4058 May, [facility] [place] [facility] [address] [id number] [place] [address]- 5891 May, [facility] [place] [facility] [address] [id number] [place] [address]- 9950 May, [facility] [place] [facility] [address] [id number] [place] [address]- 8546 May, [facility] [place] [facility] [address] [id number] [place] [address]- 8307 Apr, [facility] [place] [facility] [address] [id number] [place] [address]- 2034 Apr, [facility] [place] [facility] [address] [id number] [place] [address]- 7346 Apr, [facility] [place] [facility] [address] [id number] [place] [address]- 1595 Dec, [facility] [place] [facility] [address] [id number] [place] [address]- 0057 Dec, [facility] [place] [facility] [address] [id number] [place] [address]- 6213 Nov, [facility] [place] [facility] [address] [id number] [place] [address]- 8640 Nov, [facility] [place] [facility] [address] [id number] [place] [address]- 8456 Nov, [facility] [place] [facility] [address] [id number] [place] [address]- 8376 Nov, [facility] [place] [facility] [address] [id number] [place] [address]- 2486 Nov, [facility] [place] [facility] [address] [id number] [place] [address]- 5032 Nov, [facility] [place] [facility] [address] [id number] [place] [address]- 2887 Nov, [facility] [place] [facility] [address] [id number] [place] [address]- 5646 Nov, [facility] [place] [facility] [address] [id number] [place] [address]- 1609 Nov, [facility] [place] [facility] [address] [id number] [place] [address]- 3643 Nov, [facility] [place] [facility] [address] [id number] [place] [address]- 6373 Nov, [facility] [place] [facility] [address] [id number] [place] [address]- 7755 Nov, [facility] [place] [facility] [address] [id number] [place] [address]- 2479 Oct, [facility] [place] [facility] [address] [id number] [place] [address]- 2579 Oct, [facility] [place] [facility] [address] [id number] [place] [address]- 1962 September, [facility] [place] [facility] [address] [id number] [place] [address]- 2269 September, [facility] [place] [facility] [address] [id number] [place] [address]- 4289 Aug, [facility] [place] [facility] [address] [id number] [place] [address]- 6993 Aug, [facility] [place] [facility] [address] [id number] [place] [address]- 8653 Aug, [facility] [place] [facility] [address] [id number] [place] [address]- 4874 17 Aug, 2013 [facility] [place] [facility] [address] [id number] [place] [address]- 8285 14 Aug, 2013 [facility] [place] [facility] [address] [id number] [place] [address]- 9051 14 Aug, 2013 [facility] [place] [facility] [address] [id number] [place] [address]- 4711 10 Aug, 2013 [facility] [place] [facility] [address] [id number] [place] [address]- 7612 10 Aug, 2013 [facility] [place] [facility] [address] [id number] [place] [address]- 9701 09 Aug, 2013 [facility] [place] [facility] [address] [id number] [place] [address]- 1458 08 Aug, 2013 [facility] [place] [facility] [address] [id number] [place] [address]- 5505 08 Aug, 2013 [facility] [place] [facility] [address] [id number] [place] [address]- 1869 Jul, [facility] [place] [facility] [address] [id number] [place] [address]- 5638 Jul, [facility] [place] [facility] [address] [id number] [place] [address]- 5460 Jul, [facility] [place] [facility] [address] [id number] [place] [address]- 3508 05 Jul, 2013 [facility] [place] [facility] [address] [id number] [place] [address]- 2898 05 Jul, 2013 [facility] [place] [facility] [address] [id number] [place] [address]- 6769 Jul, [facility] [place] [facility] [address] [id number] [place] [address]- 7719 Jul, [facility] [place] [facility] [address] [id number] [place] [address]- 0244 Jun, [facility] [place] [facility] [address] [id number] [place] [address]- 5061 Jun, [facility] [place] [facility] [address] [id number] [place] [address]- 8366 Jun, [facility] [place] [facility] [address] [id number] [place] [address]- 9036 Jun, [facility] [place] [facility] [address] [id number] [place] [address] 2546 Jun, [facility] [place] [facility] [address] [id number] [place] [address]- 3137 Jun, [facility] [place] [facility] [address] [id number] [place] [address]- 3395 Jun, [facility] [place] [facility] [address] [id number] [place] [address]- 9921 Jan, [facility] [place] [facility] [address] [id number] [place] [address]- 7561 Nov, [facility] [place] [facility] [address] [id number] [place] [address]- 1014 Nov, [facility] [place] [facility] [address] [id number] [place] [address]- 7763 Aug, [facility] [place] [facility] [address] [id number] [place] [address]- 0646 Jun, [facility] [place] [facility] [address] [id number] [place] [address]- 9943 Jun, [facility] [place] [facility] [address] [id number] [place] [address]- 5427 Jun, [facility] [place] [facility] [address] [id number] [place] [address]- 7427 May, [facility] [place] [facility] [address] [id number] [place] [address]- 9138 May, [facility] [place] [facility] [address] [id number] [place] [address]- 5048 17 May, 2011 [facility] [address] [id number] [place] [address]- 8818 May, [facility] [address] [id number] [place] [address]- 5473 Apr, [facility] [address] [id number] [place] [address]- 9660 Apr, [facility] [address] [id number] [place] [address]- 5724 Apr, [facility] [address] [id number] [place] [address]- 8202 Apr, [facility] [address] [id number] [place] [address]- 8606 Mar, [facility] [address] [id number] [place] [address]- 0165 Feb, [facility] [address] [id number] [place] [address]- 6016 16 Dec, 2010 [facility] [address] [id number] [place] [address]- 0152 Nov, [facility] [address] [id number] [place] [address]- 8863 15 Jul, 2010 [facility] [address] [id number] [place] [address]- 2457 30 Apr, 2010 [facility] [address] [id number] [place] [address]- 5290 29 Apr, 2010 [facility] [address] [id number] [place] [address]- 8132 09 Apr, 2010 [facility] [address] [id number] [place] [address]- 3475 Mar, [facility] [address] [id number] [place] [address]- 7678 Mar, [facility] [id number] [address]- 3907 Mar, [facility] [id number] [address]- 7289 Feb, [facility] [address] [address]- 1790 Feb, [facility] [address] [address]- 6838 Feb, [facility] [address] [address]- 5895 Feb, [facility] [address] [address]- 0373 Dec, [facility] [address] [address]- 4719 Oct, [facility] [id number] [address]- 4401 Oct, IMMUNIZATIONS No Known Immunizations SOCIAL HISTORY Never Assessed [place] [place] VITAL SIGNS MEDICATIONS [...]
--- OUTSIDE RECORDS SUMMARY | 2018-08-27 08:14 | XMS REPORT ---
Author Author Migration, Doctor Organization [facility] Address Unknown Phone Unavailable Care Team Providers Care Legal Librarian Name Role Phone Migration, Doctor Unavailable Unavailable PROBLEMS Type Condition ICD9-CM Code TWQ28-RE Code Onset Dates Condition Status SNOMED Code Problem Chronic obstructive pulmonary disease, unspecified COPD type J44.9 Active 70594916 Problem Chronic hepatitis C B18.2 Active 647886195 Problem Anxiety F41.9 Active 34430521 Problem Essential hypertension I10 Active 32599875 Problem Epilepsy, unspecified, not intractable, without status epilepticus G40.909 Active 058749233 Problem 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 Active [id number] Problem Rheumatoid arthritis involving multiple sites, unspecified rheumatoid factor presence M06.9 Active 881768445 Problem Panic attacks F41.0 Active 510918867 Problem Depressive disorder, not elsewhere classified F32.9 Active 92760935 Problem Porokeratosis Q82.8 Active 790379043 Problem Other chronic pain G89.29 Active 50312069 Problem COPD exacerbation J44.1 Active 396905689 Problem Seasonal allergic rhinitis, unspecified allergic rhinitis trigger J30.2 Active 325266564 Problem 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 Active 21548112 Problem Lumbar radiculopathy, chronic M54.16 Active 679193980 Problem Gastroesophageal reflux disease without esophagitis K21.9 Active 336493083 Problem Methamphetamine abuse F15.10 Active 799760601 Problem Situational depression F43.21 Active 26425844 Problem MDD (major depressive disorder), recurrent episode, moderate F33.1 Active 845712949 Problem KARY (generalized anxiety disorder) F41.1 Active 96573414 Problem Psoriasis L40.9 Active 5039586 ALLERGIES No Information ENCOUNTERS Encounter Location Date Diagnosis [facility] [id number] [address] Aug, 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 [facility] [address], [place] [address] Jul, Essential hypertension I10 and Lumbar radiculopathy, chronic M54.16 [facility] [id number] [address] 62238- 9195 Jul, [facility] [id number] [address] 61606- 6750 Jul, Cervical radiculopathy M54.12 [facility] [address] [address] Jun, Shortness of breath R06.02 and COPD exacerbation J44.1 [place] [address] 6[address]- [address] May, [facility] [address] [address] May, Cervical radiculopathy M54.12 and Low back pain M54.5 [place] [id number] [address] 99038- 4396 Apr, Screening for breast cancer Z12.31 [place] [address] [address]- [address]0 Apr, Chronic obstructive pulmonary disease, unspecified COPD type J44.9 [facility] [id number] [address] 18801- 3911 Apr, [facility] [id number] [address] 81607- 0296 Apr, Essential hypertension I10 [place] [id number] [address] 59031- 5708 Apr, Essential hypertension I10 ; Psoriasis L40.9 and Epistaxis R04.0 [facility] [id number] [address] 31948- 8927 Apr, [place] [address] 78475- 1590 Mar, MDD (major depressive disorder), recurrent episode, moderate F33.1 [place] [id number] [address] 15791- 4478 08 Mar, 2018 MDD (major depressive disorder), recurrent episode, moderate F33.1 and KARY (generalized anxiety disorder) F41.1 [place] [id number] [address] 01671- 5423 18 Feb, 2018 Acute non-recurrent pansinusitis J01.40 and Encounter for immunization Z23 [address] [address]- [address] 04 Feb, 2018 Situational depression F43.21 and Screening for breast cancer Z12.[address] 62398- 5266 Feb, Chronic obstructive pulmonary disease, unspecified COPD type J44.[address] 8[address]- 7405 Oct, Essential hypertension I10 ; Rheumatoid arthritis involving multiple sites, unspecified rheumatoid factor presence M06.9 and Chronic hepatitis C B18.2 [place] [id number] [address] 15796- 5456 Oct, [place] [id number] [address] 76779- 9922 Oct, Fissure in skin of foot R23.4 [place] [id number] [address] 98651- 1245 Oct, Essential hypertension I10 [place] [id number] [address] 28088- 2447 Oct, 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 [place] [id number] [address] 84666- 4005 September, [place] [id number] [address] 81171- 9307 September, Pain in right ankle and joints of right foot M25.571 and Other chronic pain G89.29 [place] [address] 23435- 1459 Aug, Essential hypertension I10 ; Rheumatoid arthritis involving multiple sites, unspecified rheumatoid factor presence M06.9 ; Gastroesophageal reflux disease without esophagitis K21.9 ; Anxiety F41.9 ; 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 and Dermatitis L30.9 [place] [address] 59261- 6889 Aug, Onychomycosis B35.1 ; Peroneal tendinitis, unspecified laterality M76.70 and Porokeratosis Q82.[address] [address]- 9813 Jul, Porokeratosis Q82.8 ; Hyperhidrosis L74.519 and Callus of foot L84 [address] 59756- 2129 Apr, [place] [address] 94097- 3627 Apr, [address] 49070- 2205 Mar, Well woman exam (no gynecological exam) Z00.00 ; Plantar wart B07.0 ; Pain of left foot M79.672 ; Pain in right foot M79.671 and Rheumatoid arthritis involving multiple sites, unspecified rheumatoid factor presence M06.9 [place] [id number] [address] 41970- 6056 Nov, Bilateral low back pain, with sciatica presence unspecified M54.5 [place] [address] 55429- 5726 Oct, Chronic obstructive pulmonary disease, unspecified COPD type J44.9 [place] [address] 75087- 2312 September, [place] [id number] [address] 30689- 5791 September, Bilateral low back pain, with sciatica presence unspecified M54.5 [facility] [id number] [address] 33732 -1450 September, Body aches R52 and Upper respiratory infection, acute J06.9 [facility] [address] [place] [address] September, [facility] [address] [address] September, Left wrist injury, initial encounter S69.92XA and Contusion of wrist, left S60.212A [place] [address] 93756- 5522 Aug, Depressive disorder, not elsewhere classified F32.9 [facility] [address] [address]99 [address] Jul, Seasonal allergic rhinitis, unspecified allergic rhinitis trigger J30.2 ; Rheumatoid arthritis flare M06.9 and Essential hypertension I10 [place] [address] 29297- 6518 Jul, [place] [address] 43730- 8485 Jul, Essential hypertension I10 [place] [address] 41440- 1418 Jul, Essential hypertension I10 ; Other chronic pain G89.29 ; Rheumatoid arthritis involving multiple sites, unspecified rheumatoid factor presence M06.9 and Insomnia due to medical condition G47.01 [place] [address] 77737- 3970 Jul, [place] [address] 18171- 6776 Jul, [place] [address] 22646- 1838 Jun, [place] [id number] [address] 14777- 0448 Jun, 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 ; Essential hypertension I10 ; Chronic obstructive pulmonary disease, unspecified COPD type J44.9 ; Panic attacks F41.0 ; Hot flashes R23.2 ; Rheumatoid arthritis involving multiple sites, unspecified rheumatoid factor presence M06.9 ; Pain in thoracic spine M54.6 ; Other chronic pain G89.29 and Arthralgia, unspecified joint M25.50 [facility] [address] [place] [address]851 [address]2458 May, Rheumatoid arthritis flare M06.9 [facility] [place] [id number] [address] 45138 -2898 17 May, 2016 Left lower quadrant pain R10.32 ; Abdominal pain in female R10.9 ; Constipation, unspecified constipation type K59.00 and Gastroesophageal reflux disease without esophagitis K21.9 [facility] [place] [id number] [address] 01926 -0867 Mar, Herpes genitalis in women A60.09 ; Bilateral impacted cerumen H61.23 and Injury of right ring finger, initial encounter S69.91XA [place] [id number] [address] 14285- 2809 Mar, [address] [address]- 34[address] Nov, Essential hypertension I10 ; Chronic hepatitis C B18.2 ; Arthralgia, unspecified joint M25.50 ; Chronic obstructive pulmonary disease, unspecified COPD type J44.9 ; Methamphetamine abuse F15.10 ; Simple chronic bronchitis J41.0 ; Hemorrhoids, unspecified hemorrhoid type K64.9 and Anxiety F41.9 [facility] [address] [place] [id number] [address]79 -9115 Nov, [address] 6[address]48- 1695 Feb, Elevated glucose R73.09 [facility] [address] [address] 83425- 6592 Feb, Elevated glucose R73.09 [facility] [id number] [address] 41956- 0762 Oct, [facility] [id number] [address] 22301- 0945 Oct, [facility] [id number] [address] 19901- 1468 Oct, Essential hypertension, benign 401.1 ; Chronic hepatitis C without mention of hepatic coma 070.54 ; Anxiety state, unspecified 300.00 ; Genital herpes 054.10 ; Methamphetamine abuse 305.70 and Excessive cerumen in both ear canals 380.4 [facility] [id number] [address] 79962- 6573 Oct, [facility] [id number] [address] 46114- 4614 Aug, [facility] [id number] [address] 55599- 2565 Aug, [facility] [id number] [address] 60274- 7077 Jul, [facility] [address] [address] 34081- 3318 Jul, [facility] [id number] [address] 63600- 9617 Jun, [facility] [id number] [address] 78344- 2304 Jun, [facility] [id number] [address] 481722- 8543 Jun, [facility] [id number] [address] 64846- 4407 Jun, [facility] [place] [facility] [address] [id number] [place] [address]- 6833 May, [facility] [place] [facility] [address] [id number] [place] [address]- 8095 May, [facility] [place] [facility] [address] [id number] [place] [address]- 7702 May, [facility] [place] [facility] [address] [id number] [place] [address]- 0115 May, [facility] [place] [facility] [address] [id number] [place] [address]- 6303 May, [facility] [place] [facility] [address] [id number] [place] [address]- 9012 May, [facility] [place] [facility] [address] [id number] [place] [address]- 9113 May, [facility] [place] [facility] [address] [id number] [place] [address]- 1091 Apr, [facility] [place] [facility] [address] [id number] [place] [address]- 7004 Apr, [facility] [place] [facility] [address] [id number] [place] [address]- 9055 Apr, [facility] [place] [facility] [address] [id number] [place] [address]- 5693 Dec, [facility] [place] [facility] [address] [id number] [place] [address]- 6674 Dec, [facility] [place] [facility] [address] [id number] [place] [address]- 1364 Nov, [facility] [place] [facility] [address] [id number] [place] [address]- 3174 Nov, [facility] [place] [facility] [address] [id number] [place] [address]- 9677 Nov, [facility] [place] [facility] [address] [id number] [place] [address]- 4686 Nov, [facility] [place] [facility] [address] [id number] [place] [address]- 9588 Nov, [facility] [place] [facility] [address] [id number] [place] [address]- 2665 Nov, [facility] [place] [facility] [address] [id number] [place] [address]- 1071 Nov, [facility] [place] [facility] [address] [id number] [place] [address]- 8755 Nov, [facility] [place] [facility] [address] [id number] [place] [address]- 3657 Nov, [facility] [place] [facility] [address] [id number] [place] [address]- 5831 Nov, [facility] [place] [facility] [address] [id number] [place] [address]- 5617 Nov, [facility] [place] [facility] [address] [id number] [place] [address]- 3348 Nov, [facility] [place] [facility] [address] [id number] [place] [address]- 5535 Oct, [facility] [place] [facility] [address] [id number] [place] [address]- 4330 Oct, [facility] [place] [facility] [address] [id number] [place] [address]- 0836 September, [facility] [place] [facility] [address] [id number] [place] [address]- 0928 September, [facility] [place] [facility] [address] [id number] [place] [address]- 1356 Aug, [facility] [place] [facility] [address] [id number] [place] [address]- 6424 Aug, [facility] [place] [facility] [address] [id number] [place] [address]- 7738 Aug, [facility] [place] [facility] [address] [id number] [place] [address]- 6913 17 Aug, 2013 [facility] [place] [facility] [address] [id number] [place] [address]- 5977 14 Aug, 2013 [facility] [place] [facility] [address] [id number] [place] [address]- 2360 14 Aug, 2013 [facility] [place] [facility] [address] [id number] [place] [address]- 2699 10 Aug, 2013 [facility] [place] [facility] [address] [id number] [place] [address]- 8016 10 Aug, 2013 [facility] [place] [facility] [address] [id number] [place] [address]- 2362 09 Aug, 2013 [facility] [place] [facility] [address] [id number] [place] [address]- 7779 08 Aug, 2013 [facility] [place] [facility] [address] [id number] [place] [address]- 6309 08 Aug, 2013 [facility] [place] [facility] [address] [id number] [place] [address]- 9787 Jul, [facility] [place] [facility] [address] [id number] [place] [address]- 9639 Jul, [facility] [place] [facility] [address] [id number] [place] [address]- 8821 Jul, [facility] [place] [facility] [address] [id number] [place] [address]- 1987 05 Jul, 2013 [facility] [place] [facility] [address] [id number] [place] [address]- 7691 05 Jul, 2013 [facility] [place] [facility] [address] [id number] [place] [address]- 1751 Jul, [facility] [place] [facility] [address] [id number] [place] [address]- 5891 Jul, [facility] [place] [facility] [address] [id number] [place] [address]- 6087 Jun, [facility] [place] [facility] [address] [id number] [place] [address]- 8527 Jun, [facility] [place] [facility] [address] [id number] [place] [address]- 8236 Jun, [facility] [place] [facility] [address] [id number] [place] [address]- 5156 Jun, [facility] [place] [facility] [address] [id number] [place] [address] 2546 Jun, [facility] [place] [facility] [address] [id number] [place] [address]- 8888 Jun, [facility] [place] [facility] [address] [id number] [place] [address]- 6365 Jun, [facility] [place] [facility] [address] [id number] [place] [address]- 3568 Jan, [facility] [place] [facility] [address] [id number] [place] [address]- 6939 Nov, [facility] [place] [facility] [address] [id number] [place] [address]- 4370 Nov, [facility] [place] [facility] [address] [id number] [place] [address]- 6743 Aug, [facility] [place] [facility] [address] [id number] [place] [address]- 3177 Jun, [facility] [place] [facility] [address] [id number] [place] [address]- 8815 Jun, [facility] [place] [facility] [address] [id number] [place] [address]- 9756 Jun, [facility] [place] [facility] [address] [id number] [place] [address]- 3340 May, [facility] [place] [facility] [address] [id number] [place] [address]- 1867 May, [facility] [place] [facility] [address] [id number] [place] [address]- 5588 17 May, 2011 [facility] [address] [id number] [place] [address]- 1717 May, [facility] [address] [id number] [place] [address]- 0388 Apr, [facility] [address] [id number] [place] [address]- 7472 Apr, [facility] [address] [id number] [place] [address]- 3027 Apr, [facility] [address] [id number] [place] [address]- 9963 Apr, [facility] [address] [id number] [place] [address]- 5689 Mar, [facility] [address] [id number] [place] [address]- 1104 Feb, [facility] [address] [id number] [place] [address]- 4128 16 Dec, 2010 [facility] [address] [id number] [place] [address]- 8359 Nov, [facility] [address] [id number] [place] [address]- 1460 15 Jul, 2010 [facility] [address] [id number] [place] [address]- 2741 30 Apr, 2010 [facility] [address] [id number] [place] [address]- 2001 29 Apr, 2010 [facility] [address] [id number] [place] [address]- 2404 09 Apr, 2010 [facility] [address] [id number] [place] [address]- 0295 Mar, [facility] [address] [id number] [place] [address]- 6333 Mar, [facility] [id number] [address]- 7565 Mar, [facility] [id number] [address]- 7247 Feb, [facility] [address] [place] [address]- 6524 Feb, [facility] [address] [place] [address]- 7006 Feb, [facility] [address] [place] [address]- 1342 Feb, [facility] [address] [place] [address]- 4618 Dec, [facility] [address] [place] [address]- 0693 Oct, [facility] [id number] [address]- 7269 Oct, IMMUNIZATIONS No Known Immunizations SOCIAL HISTORY Never Assessed REASON FOR VISIT EMR-[facility] [place] PLAN OF CARE [...]
--- OUTSIDE RECORDS SUMMARY | 2018-08-27 08:15 | XMS REPORT ---
Author Author Migration, Doctor Organization [facility] Address Unknown Phone Unavailable Care Team Providers Care Comic Book Artist Name Role Phone Migration, Doctor Unavailable Unavailable PROBLEMS Type Condition ICD9-CM Code [id number] Code Onset Dates Condition Status SNOMED Code Problem Chronic obstructive pulmonary disease, unspecified COPD type J44.9 Active 68171474 Problem Chronic hepatitis C B18.2 Active 037880364 Problem Anxiety F41.9 Active 68421022 Problem Essential hypertension I10 Active 68627948 Problem Epilepsy, unspecified, not intractable, without status epilepticus G40.909 Active 670869151 Problem 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 Active [id number] Problem Rheumatoid arthritis involving multiple sites, unspecified rheumatoid factor presence M06.9 Active 324420919 Problem Panic attacks F41.0 Active 928604865 Problem Depressive disorder, not elsewhere classified F32.9 Active 27000807 Problem Porokeratosis Q82.8 Active 973591729 Problem Other chronic pain G89.29 Active 61813781 Problem COPD exacerbation J44.1 Active 795607161 Problem Seasonal allergic rhinitis, unspecified allergic rhinitis trigger J30.2 Active 080534714 Problem 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 Active 43456130 Problem Lumbar radiculopathy, chronic M54.16 Active 581279450 Problem Gastroesophageal reflux disease without esophagitis K21.9 Active 560769060 Problem Methamphetamine abuse F15.10 Active 859183372 Problem Situational depression F43.21 Active 00689973 Problem MDD (major depressive disorder), recurrent episode, moderate F33.1 Active 342788604 Problem KARY (generalized anxiety disorder) F41.1 Active 69293289 Problem Psoriasis L40.9 Active 7691287 ALLERGIES No Information ENCOUNTERS Encounter Location Date Diagnosis [facility] [address] [facility] [id number] [address] Aug[facility] [address] [facility] [id number], [place] [address] Jul, Essential hypertension I10 and Lumbar radiculopathy, chronic M54.16 [facility] [address] [place] [id number] [place] [address]17- [address]31 Jul, [facility] [address] [address]- [address] Jul, Cervical radiculopathy M54.12 [facility] [address] [address] Jun, Shortness of breath R06.02 and COPD exacerbation J44.1 [place] [address] [id number] [place] [address]190- 9524 May, [place] [address] [address] May, Cervical radiculopathy M54.12 and Low back pain M54.5 [place] [address] [address]- [address] Apr, Screening for breast cancer Z12.31 [place] [address] [address]- 2483 Apr, Chronic obstructive pulmonary disease, unspecified COPD type J44.9 [place] [address] [id number] [place] [address] 16413- 2314 Apr, [place] [address] [address]- 1945 Apr, Essential hypertension I10 [place] [id number] [place] [address] 94525- 5659 Apr, Essential hypertension I10 ; Psoriasis L40.9 and Epistaxis R04.0 [place] [address] [address]- 2867 Apr, [place] [address] 64[address]- 4298 Mar, MDD (major depressive disorder), recurrent episode, moderate F33.1 [place] [id number] [place] [address] 85458- 8614 08 Mar, 2018 MDD (major depressive disorder), recurrent episode, moderate F33.1 and KARY (generalized anxiety disorder) F41.1 [place] [id number] [place] [address] 01673- 2523 18 Feb, 2018 Acute non-recurrent pansinusitis J01.40 and Encounter for immunization Z23 [address] [address]- [address]39 04 Feb, 2018 Situational depression F43.21 and Screening for breast cancer Z12.[address] [address]88- 1653 Feb, Chronic obstructive pulmonary disease, unspecified COPD type J44.[address] 16280- 4492 Oct, Essential hypertension I10 ; Rheumatoid arthritis involving multiple sites, unspecified rheumatoid factor presence M06.9 and Chronic hepatitis C B18.[address] [address]361- 3116 Oct, [address] 96486- 0663 Oct, Fissure in skin of foot R23.[address] 14427- 9789 Oct, Essential hypertension I10 [place] [address] 90361- 7681 Oct, 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 [place] [address] [address]- 5132 September, [address] 33471- 8329 September, Pain in right ankle and joints of right foot M25.571 and Other chronic pain G89.29 [place] [address] 46507- 3584 Aug, Essential hypertension I10 ; Rheumatoid arthritis involving multiple sites, unspecified rheumatoid factor presence M06.9 ; Gastroesophageal reflux disease without esophagitis K21.9 ; Anxiety F41.9 ; 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 and Dermatitis L30.9 [place] [address] 21672- 2427 Aug, Onychomycosis B35.1 ; Peroneal tendinitis, unspecified laterality M76.70 and Porokeratosis Q82.[address] 24584- 0673 Jul, Porokeratosis Q82.8 ; Hyperhidrosis L74.519 and Callus of foot L84 [address] 79813- 5085 Apr, [place] [address] 61644- 2664 Apr, [address] 57826- 3364 Mar, Well woman exam (no gynecological exam) Z00.00 ; Plantar wart B07.0 ; Pain of left foot M79.672 ; Pain in right foot M79.671 and Rheumatoid arthritis involving multiple sites, unspecified rheumatoid factor presence M06.9 [place] [address] 22814- 9243 Nov, Bilateral low back pain, with sciatica presence unspecified M54.[address] 65083- 6730 Oct, Chronic obstructive pulmonary disease, unspecified COPD type J44.9 [place] [address] 17559- 1464 September, [place] [address] [place] [address] September, Bilateral low back pain, with sciatica presence unspecified M54.5 [facility] [address] [address] September, Body aches R52 and Upper respiratory infection, acute J06.9 [facility] [address] [place] [address] September, [facility] [address] [address] September, Left wrist injury, initial encounter S69.92XA and Contusion of wrist, left S60.212A [place] [address] 21652- 9501 Aug, Depressive disorder, not elsewhere classified F32.9 [facility] [address] [address] Jul, Seasonal allergic rhinitis, unspecified allergic rhinitis trigger J30.2 ; Rheumatoid arthritis flare M06.9 and Essential hypertension I10 [place] [address] 04161- 5091 Jul, [place] [address] 66820- 8990 Jul, Essential hypertension I10 [place] [address] 89068- 8808 Jul, Essential hypertension I10 ; Other chronic pain G89.29 ; Rheumatoid arthritis involving multiple sites, unspecified rheumatoid factor presence M06.9 and Insomnia due to medical condition G47.01 [place] [address] 62785- 5006 Jul, [facility] [address] 90855- 6703 Jul, [place] [address] 01491- 5235 Jun, [place] [id number] [place] [address] 93090- 7208 07 Jun, 2016 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 ; Essential hypertension I10 ; Chronic obstructive pulmonary disease, unspecified COPD type J44.9 ; Panic attacks F41.0 ; Hot flashes R23.2 ; Rheumatoid arthritis involving multiple sites, unspecified rheumatoid factor presence M06.9 ; Pain in thoracic spine M54.6 ; Other chronic pain G89.29 and Arthralgia, unspecified joint M25.50 [facility] [address] [address] May, Rheumatoid arthritis flare M06.9 [facility] [address] [address] 17 May, 2016 Left lower quadrant pain R10.32 ; Abdominal pain in female R10.9 ; Constipation, unspecified constipation type K59.00 and Gastroesophageal reflux disease without esophagitis K21.9 [facility] [address] [address] Mar, Herpes genitalis in women A60.09 ; Bilateral impacted cerumen H61.23 and Injury of right ring finger, initial encounter S69.91XA [place] [id number] [place] [address] 23118- 3302 Mar, [place] [id number] [place] [address] 18115- 8576 Nov, Essential hypertension I10 ; Chronic hepatitis C B18.2 ; Arthralgia, unspecified joint M25.50 ; Chronic obstructive pulmonary disease, unspecified COPD type J44.9 ; Methamphetamine abuse F15.10 ; Simple chronic bronchitis J41.0 ; Hemorrhoids, unspecified hemorrhoid type K64.9 and Anxiety F41.9 [facility] [place] [id number] [place] [address]341 [address]91 Nov, [address] [address]- 1247 Feb, Elevated glucose R73.09 [facility] [address] [address] Feb, Elevated glucose R73.09 [facility] [id number] [place] [address] 180746- 4312 Oct, [facility] [id number] [place] [address] 96115- 3097 Oct, [facility] [id number] [place] [address] 408623- 9404 Oct, Essential hypertension, benign 401.1 ; Chronic hepatitis C without mention of hepatic coma 070.54 ; Anxiety state, unspecified 300.00 ; Genital herpes 054.10 ; Methamphetamine abuse 305.70 and Excessive cerumen in both ear canals 380.4 [facility] [id number] [place] [address] 36249- 2217 Oct, [facility] [id number] [place] [address] 01107- 2312 Aug, [facility] [id number] [place] [address] 73288- 1684 Aug, [facility] [id number] [place] [address] 42408- 6957 Jul, [facility] [id number] [place] [address] 42176- 9806 Jul, [facility] [id number] [place] [address] 94128- 6938 Jun, [facility] [id number] [place] [address] 62412- 3297 Jun, [facility] [id number] [place] [address] 655332- 1754 Jun, [facility] [id number] [place] [address] 073853- 7313 Jun, [facility] [id number] [place] [address] [place] [address]- 8346 May, [facility] [place] [facility] [address] [id number] [place] [address]- 6645 May, [facility] [place] [facility] [address] [id number] [place] [address]- 2260 May, [facility] [place] [facility] [address] [id number] [place] [address]- 5891 May, [facility] [place] [facility] [address] [id number] [place] [address]- 7064 May, [facility] [place] [facility] [address] [id number] [place] [address]- 3987 May, [facility] [place] [facility] [address] [id number] [place] [address]- 2909 May, [facility] [address] [id number] [place] [address]- 9548 Apr, [facility] [place] [facility] [address] [id number] [place] [address]- 8217 Apr, [facility] [place] [facility] [address] [id number] [place] [address]- 3282 Apr, [facility] [place] [facility] [address] [id number] [place] [address]- 3345 Dec, [facility] [place] [facility] [address] [id number] [place] [address]- 8280 Dec, [facility] [place] [facility] [address] [id number] [place] [address]- 5814 Nov, [facility] [place] [facility] [address] [id number] [place] [address]- 3939 Nov, [facility] [place] [facility] [address] [id number] [place] [address]- 1873 Nov, [facility] [place] [facility] [address] [id number] [place] [address]- 9948 Nov, [facility] [place] [facility] [address] [id number] [place] [address]- 1349 Nov, [facility] [place] [facility] [address] [id number] [place] [address]- 0185 Nov, [facility] [place] [facility] [address] [id number] [place] [address]- 8002 Nov, [facility] [place] [facility] [address] [id number] [place] [address]- 1385 Nov, [facility] [place] [facility] [address] [id number] [place] [address]- 0939 Nov, [facility] [place] [facility] [address] [id number] [place] [address]- 0014 Nov, [facility] [place] [facility] [address] [id number] [place] [address]- 1632 Nov, [facility] [place] [facility] [address] [id number] [place] [address]- 5028 Nov, [facility] [place] [facility] [address] [id number] [place] [address]- 1674 Oct, [facility] [place] [facility] [address] [id number] [place] [address]- 6128 Oct, [facility] [place] [facility] [address] [id number] [place] [address]- 1823 September, [facility] [place] [facility] [address] [id number] [place] [address]- 8093 September, [facility] [place] [facility] [address] [id number] [place] [address]- 5198 Aug, [facility] [place] [facility] [address] [id number] [place] [address]- 4013 Aug, [facility] [place] [facility] [address] [id number] [place] [address]- 5464 Aug, [facility] [place] [facility] [address] [id number] [place] [address]- 9485 Aug, 2013 [facility] [place] [facility] [address] [id number] [place] [address]- 1433 14 Aug, 2013 [facility] [place] [facility] [address] [id number] [place] [address]- 9616 14 Aug, 2013 [facility] [place] [facility] [address] [id number] [place] [address]- 5742 Aug, [facility] [place] [facility] [address] [id number] [place] [address]- 5300 Aug, [facility] [place] [facility] [address] [id number] [place] [address]- 6902 Aug, [facility] [place] [facility] [address] [id number] [place] [address]- 1417 Aug, [facility] [place] [facility] [address] [id number] [place] [address]- 7436 Aug, [facility] [place] [facility] [address] [id number] [place] [address]- 0443 Jul, [facility] [place] [facility] [address] [id number] [place] [address]- 6926 Jul, [facility] [place] [facility] [address] [id number] [place] [address]- 4479 Jul, [facility] [place] [facility] [address] [id number] [place] [address]- 6727 Jul, [facility] [place] [facility] [address] [id number], [place] [address]- 9631 05 Jul, 2013 [facility] [place] [facility] [address] [id number] [place] [address]- 4119 Jul, [facility] [place] [facility] [address] [id number] [place] [address]- 6972 Jul, [facility] [place] [facility] [address] [id number] [place] [address]- 9811 Jun, [facility] [place] [facility] [address] [id number] [place] [address]- 7826 Jun, [facility] [place] [facility] [address] [id number] [place] [address]- 7278 Jun, [facility] [place] [facility] [address] [id number] [place] [address]- 2546 Jun, [facility] [place] [facility] [address] [id number] [place] [address]- 7846 Jun, [facility] [place] [facility] [address] [id number] [place] [address]- 2549 Jun, [facility] [place] [facility] [address] [id number] [place] [address]- 4016 Jun, [facility] [place] [facility] [address] [id number] [place] [address]- 6280 Jan, [facility] [place] [facility] [address] [id number] [place] [address]- 3872 Nov, [facility] [place] [facility] [address] [id number] [place] [address]- 7256 Nov, [facility] [place] [facility] [address] [facility] [id number] [place] [address]- 0248 Aug, [facility] [place] [facility] [address] [facility] [id number] [place] [address]- 3543 Jun, [facility] [place] [facility] [address] [facility] [id number] [place] [address]- 9432 Jun, [facility] [place] [facility] [address] [id number] [place] 6412 Jun, [facility] [place] [facility] [address] [id number] [place] [address]- 4991 May, [facility] [place] [facility] [address] [id number] [place] [address]- 9836 May, [facility] [place] [facility] [address] [id number] [place] [address]- 4546 May, [facility] [address] [id number] [place] [address]- 3696 May, [facility] [place] [facility] [address] [id number] [place] [address]- 2973 Apr, [facility] [place] [facility] [address] [id number] [place] [address]- 8480 Apr, [facility] [place] [facility] [address] [id number] [place] [address]- 5951 Apr, [facility] [place] [facility] [address] [id number] [place] [address]- 2690 Apr, [facility] [place] [facility] [address] [id number] [place] [address]- 7374 Mar, [facility] [place] [facility] [address] [id number] [place] [address]- 9624 Feb, [facility] [place] [facility] [address] [id number] [place] [address]- 4488 16 Dec, 2010 [facility] [place] [facility] [address] [id number] [place] [address]- 5955 Nov, [facility] [place] [facility] [address] [id number] [place] [address]- 0767 Jul, [facility] [place] [facility] [address] [id number] [place] [address]- 0388 30 Apr, 2010 [facility] [place] [facility] [address] [id number] [place] [address]- 4109 29 Apr, 2010 [facility] [place] [facility] [address] [id number] [place] [address]- 3134 Apr, [facility] [place] [facility] [address] [id number] [place] [address]- 3996 Mar, [facility] [place] [facility] [address] [id number] [place] [address]- 1375 Mar, [facility] [place] [facility] [address] [place] [id number] [address]- 0727 Mar, [facility] [address] [address] Feb, [facility] [address], [place] [address]- 1030 Feb, [facility] [address] [address]- 7048 Feb, [facility] [address] [address]89 Feb, [facility] [address]- 3580 Dec, [facility] [address], [place] [address]- 4410 Oct, [facility] [address], [place] [address]- 1388 Oct, IMMUNIZATIONS No Known Immunizations SOCIAL HISTORY Never Assessed REASON FOR [place] [place] VITAL SIGNS MEDICATIONS Unknown [...]
--- OUTSIDE RECORDS SUMMARY | 2018-08-27 08:15 | XMS REPORT ---
Author Author Migration, Doctor Organization [facility] Address Unknown Phone Unavailable Care Team Providers Care Regulator Inspector Name Role Phone Migration, Doctor Unavailable Unavailable PROBLEMS Type Condition ICD9-CM Code NJP81-JJ Code Onset Dates Condition Status SNOMED Code Problem Chronic obstructive pulmonary disease, unspecified COPD type J44.9 Active 87673068 Problem Chronic hepatitis C B18.2 Active 729361584 Problem Anxiety F41.9 Active 12295167 Problem Essential hypertension I10 Active 16604286 Problem Epilepsy, unspecified, not intractable, without status epilepticus G40.909 Active 715947690 Problem 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 Active 788266326456699 Problem Rheumatoid arthritis involving multiple sites, unspecified rheumatoid factor presence M06.9 Active 890893624 Problem Panic attacks F41.0 Active 154408310 Problem Depressive disorder, not elsewhere classified F32.9 Active 71519805 Problem Porokeratosis Q82.8 Active 290605581 Problem Other chronic pain G89.29 Active 76805514 Problem COPD exacerbation J44.1 Active 633296968 Problem Seasonal allergic rhinitis, unspecified allergic rhinitis trigger J30.2 Active 032184426 Problem 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 Active 11827466 Problem Lumbar radiculopathy, chronic M54.16 Active 224600488 Problem Gastroesophageal reflux disease without esophagitis K21.9 Active 206767501 Problem Methamphetamine abuse F15.10 Active 797339878 Problem Situational depression F43.21 Active 17435122 Problem MDD (major depressive disorder), recurrent episode, moderate F33.1 Active 484387393 Problem KARY (generalized anxiety disorder) F41.1 Active 77321193 Problem Psoriasis L40.9 Active 7685044 ALLERGIES No Information ENCOUNTERS Encounter Location Date Diagnosis [facility] [address] [address] Aug, 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 [facility] [address], [place] [address] Jul, Essential hypertension I10 and Lumbar radiculopathy, chronic M54.16 [facility] [id number] [place] [address]606- 3033 Jul, [facility] [id number] [place] [address] 77298- 7031 Jul, Cervical radiculopathy M54.12 [facility] [address] [address] Jun, Shortness of breath R06.02 and COPD exacerbation J44.1 [place] [address] [address] May, [facility] [address] [address]- [address] May, Cervical radiculopathy M54.12 and Low back pain M54.5 [place] [id number] [place] [address] 43860- 8412 Apr, Screening for breast cancer Z12.31 [place] [address] [address]- [address] Apr, Chronic obstructive pulmonary disease, unspecified COPD type J44.9 [facility] [id number] [place] [address] 37783- 8743 Apr, [facility] [id number] [place] [address] 15654- 7591 Apr, Essential hypertension I10 [place] [id number] [place] [address] 72006- 4284 Apr, Essential hypertension I10 ; Psoriasis L40.[address] [facility] [id number] [place] [address] 50973- 5738 Apr, [place] [address] 35229- 1678 Mar, MDD (major depressive disorder), recurrent episode, moderate F33.1 [place] [id number] [place] [address] 96194- 0706 08 Mar, 2018 MDD (major depressive disorder), recurrent episode, moderate F33.1 and KARY (generalized anxiety disorder) F41.1 [place] [id number] [place] [address] 33261- 6136 18 Feb, 2018 Acute non-recurrent pansinusitis J01.40 and Encounter for immunization Z23 [address] [address] 04 Feb, 2018 Situational depression F43.21 and Screening for breast cancer Z12.[address] [address]42- 8900 Feb, Chronic obstructive pulmonary disease, unspecified COPD type J44.[address] 75204- 4291 Oct, Essential hypertension I10 ; Rheumatoid arthritis involving multiple sites, unspecified rheumatoid factor presence M06.9 and Chronic hepatitis C B18.2 [place] [id number] [place] [address] 32476- 6201 Oct, [place] [id number] [place] [address] 54751- 0671 Oct, Fissure in skin of foot R23.4 [place] [id number] [place] [address] 84054- 5158 Oct, Essential hypertension I10 [place] [id number] [place] [address] 89069- 2869 Oct, 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 [place] [id number] [place] [address] 73012- 2309 September, [place] [id number] [place] [address] 77979- 9728 September, Pain in right ankle and joints of right foot M25.571 and Other chronic pain G89.29 [place] [address] 98277- 5249 Aug, Essential hypertension I10 ; Rheumatoid arthritis involving multiple sites, unspecified rheumatoid factor presence M06.9 ; Gastroesophageal reflux disease without esophagitis K21.9 ; Anxiety F41.9 ; 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 and Dermatitis L30.9 [place] [address] 02774- 4739 Aug, Onychomycosis B35.1 ; Peroneal tendinitis, unspecified laterality M76.70 and Porokeratosis Q82.[address] 08488- 4185 Jul, Porokeratosis Q82.8 ; Hyperhidrosis L74.519 and Callus of foot L84 [address] 45603- 2303 Apr, [place] [address] 33674- 8999 Apr, [address] 44325- 3747 Mar, Well woman exam (no gynecological exam) Z00.00 ; Plantar wart B07.0 ; Pain of left foot M79.672 ; Pain in right foot M79.671 and Rheumatoid arthritis involving multiple sites, unspecified rheumatoid factor presence M06.9 [place] [id number] [place] [address] 47254- 0376 Nov, Bilateral low back pain, with sciatica presence unspecified M54.5 [place] [address] 41231- 3174 Oct, Chronic obstructive pulmonary disease, unspecified COPD type J44.9 [place] [address] 91888- 7787 September, [place] [address] [id number] [place] [address] 65825- 2152 September, Bilateral low back pain, with sciatica presence unspecified M54.5 [facility] [id number] [place] [address] 58302 -0941 September, Body aches R52 and Upper respiratory infection, acute J06.9 [facility] [address] [place] [address] September, [facility] [address] [address] September, Left wrist injury, initial encounter S69.92XA and Contusion of wrist, left S60.212A [place] [address] 89289- 7497 Aug, Depressive disorder, not elsewhere classified F32.9 [facility] [address] 97[address]5052 Jul, Seasonal allergic rhinitis, unspecified allergic rhinitis trigger J30.2 ; Rheumatoid arthritis flare M06.9 and Essential hypertension I10 [place] [address] 52372- 5014 Jul, [place] [address] 80220- 7655 Jul, Essential hypertension I10 [place] [address] 55102- 2522 Jul, Essential hypertension I10 ; Other chronic pain G89.29 ; Rheumatoid arthritis involving multiple sites, unspecified rheumatoid factor presence M06.9 and Insomnia due to medical condition G47.01 [place] [address] 02466- 1902 Jul, [place] [address] 45417- 2916 Jul, [place] [address] 49821- 7152 Jun, [place] [id number] [place] [address] 10455- 1634 Jun, 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 ; Essential hypertension I10 ; Chronic obstructive pulmonary disease, unspecified COPD type J44.9 ; Panic attacks F41.0 ; Hot flashes R23.2 ; Rheumatoid arthritis involving multiple sites, unspecified rheumatoid factor presence M06.9 ; Pain in thoracic spine M54.6 ; Other chronic pain G89.29 and Arthralgia, unspecified joint M25.50 [facility] [address] [place] [address]69 -4334 May, Rheumatoid arthritis flare M06.9 [facility] [place] [id number] [place] [address] 12374 -5249 17 May, 2016 Left lower quadrant pain R10.32 ; Abdominal pain in female R10.9 ; Constipation, unspecified constipation type K59.00 and Gastroesophageal reflux disease without esophagitis K21.9 [facility] [place] [id number] [place] [address] 78251 -5955 Mar, Herpes genitalis in women A60.09 ; Bilateral impacted cerumen H61.23 and Injury of right ring finger, initial encounter S69.91XA [place] [id number] [place] [address] 99654- 5910 Mar, [address] 99654- 9433 Nov, Essential hypertension I10 ; Chronic hepatitis C B18.2 ; Arthralgia, unspecified joint M25.50 ; Chronic obstructive pulmonary disease, unspecified COPD type J44.9 ; Methamphetamine abuse F15.10 ; Simple chronic bronchitis J41.0 ; Hemorrhoids, unspecified hemorrhoid type K64.9 and Anxiety F41.9 [facility] [address] [place], [place] [id number] [place] [address] 26703 -0391 Nov, [address] 63881- 7597 Feb, Elevated glucose R73.09 [facility] [address] [place] [address] 69402- 5890 Feb, Elevated glucose R73.09 [facility] [id number] [place] [address] 65636- 9468 Oct, [facility] [id number] [place] [address] 60213- 4760 Oct, [facility] [id number] [place] [address] 19983- 8141 Oct, Essential hypertension, benign 401.1 ; Chronic hepatitis C without mention of hepatic coma 070.54 ; Anxiety state, unspecified 300.00 ; Genital herpes 054.10 ; Methamphetamine abuse 305.70 and Excessive cerumen in both ear canals 380.4 [facility] [id number] [place] [address] 92039- 1505 Oct, [facility] [id number] [place] [address] 82471- 4843 Aug, [facility] [id number] [place] [address] 95934- 5357 Aug, [facility] [id number] [place] [address] 24437- 9564 Jul, [facility] [address] [place] [address] 78859- 2083 Jul, [facility] [id number] [place] [address] 32951- 0293 Jun, [facility] [id number] [place] [address] 38028- 9768 Jun, [facility] [id number] [place] [address] 210728- 5711 Jun, [facility] [id number] [place] [address] 98372- 5214 Jun, [facility] [place] [facility] [address] [id number] [place] [address]- 1476 May, [facility] [place] [facility] [address] [id number] [place] [address]- 8141 May, [facility] [place] [facility] [address] [id number] [place] [address]- 2739 May, [facility] [place] [facility] [address] [id number] [place] [address]- 6058 May, [facility] [place] [facility] [address] [id number] [place] [address]- 1973 May, [facility] [place] [facility] [address] [id number] [place] [address]- 4311 May, [facility] [place] [facility] [address] [id number] [place] [address]- 1628 May, [facility] [place] [facility] [address] [id number] [place] [address]- 1658 Apr, [facility] [place] [facility] [address] [id number] [place] [address]- 4566 Apr, [facility] [place] [facility] [address] [id number] [place] [address]- 6586 Apr, [facility] [place] [facility] [address] [id number] [place] [address]- 8274 Dec, [facility] [place] [facility] [address] [id number] [place] [address]- 1203 Dec, [facility] [place] [facility] [address] [id number] [place] [address]- 5645 Nov, [facility] [place] [facility] [address] [id number] [place] [address]- 0146 Nov, [facility] [place] [facility] [address] [id number] [place] [address]- 9072 Nov, [facility] [place] [facility] [address] [id number] [place] [address]- 1438 Nov, [facility] [place] [facility] [address] [id number] [place] [address]- 5718 Nov, [facility] [place] [facility] [address] [id number] [place] [address]- 3243 Nov, [facility] [place] [facility] [address] [id number] [place] [address]- 1422 Nov, [facility] [place] [facility] [address] [id number] [place] [address]- 0263 Nov, [facility] [place] [facility] [address] [id number] [place] [address]- 5429 Nov, [facility] [place] [facility] [address] [id number] [place] [address]- 7071 Nov, [facility] [place] [facility] [address] [id number] [place] [address]- 1475 Nov, [facility] [place] [facility] [address] [id number] [place] [address]- 5504 Nov, [facility] [place] [facility] [address] [id number] [place] [address]- 5870 Oct, [facility] [place] [facility] [address] [id number] [place] [address]- 8112 Oct, [facility] [place] [facility] [address] [id number] [place] [address]- 0789 September, [facility] [place] [facility] [address] [id number] [place] [address]- 0971 September, [facility] [place] [facility] [address] [id number] [place] [address]- 6163 Aug, [facility] [place] [facility] [address] [id number] [place] [address]- 3036 Aug, [facility] [place] [facility] [address] [id number] [place] [address]- 2125 Aug, [facility] [place] [facility] [address] [id number] [place] [address]- 8943 17 Aug, 2013 [facility] [place] [facility] [address] [id number] [place] [address]- 0302 14 Aug, 2013 [facility] [place] [facility] [address] [id number] [place] [address]- 1587 14 Aug, 2013 [facility] [place] [facility] [address] [id number] [place] [address]- 5683 10 Aug, 2013 [facility] [place] [facility] [address] [id number] [place] [address]- 7273 10 Aug, 2013 [facility] [place] [facility] [address] [id number] [place] [address]- 6307 09 Aug, 2013 [facility] [place] [facility] [address] [id number] [place] [address]- 1302 08 Aug, 2013 [facility] [place] [facility] [address] [id number] [place] [address]- 4722 08 Aug, 2013 [facility] [place] [facility] [address] [id number] [place] [address]- 9250 Jul, [facility] [place] [facility] [address] [id number] [place] [address]- 2032 Jul, [facility] [place] [facility] [address] [id number] [place] [address]- 7046 Jul, [facility] [place] [facility] [address] [id number] [place] [address]- 9228 05 Jul, 2013 [facility] [place] [facility] [address] [id number] [place] [address]- 5852 05 Jul, 2013 [facility] [place] [facility] [address] [id number] [place] [address]- 8164 Jul, [facility] [place] [facility] [address] [id number] [place] [address]- 6202 Jul, [facility] [place] [facility] [address] [id number] [place] [address]- 7141 Jun, [facility] [place] [facility] [address] [id number] [place] [address]- 2973 Jun, [facility] [place] [facility] [address] [id number] [place] [address]- 8556 Jun, [facility] [place] [facility] [address] [id number] [place] [address]- 7166 Jun, [facility] [place] [facility] [address] [id number] [place] [address] 2546 Jun, [facility] [place] [facility] [address] [id number] [place] [address]- 2135 Jun, [facility] [place] [facility] [address] [id number] [place] [address]- 5104 Jun, [facility] [place] [facility] [address] [id number] [place] [address]- 2491 Jan, [facility] [place] [facility] [address] [id number] [place] [address]- 6416 Nov, [facility] [place] [facility] [address] [id number] [place] [address]- 9373 Nov, [facility] [place] [facility] [address] [id number] [place] [address]- 0612 Aug, [facility] [place] [facility] [address] [id number] [place] [address]- 8593 Jun, [facility] [place] [facility] [address] [id number] [place] [address]- 5624 Jun, [facility] [place] [facility] [address] [id number] [place] [address]- 3620 Jun, [facility] [place] [facility] [address] [id number] [place] [address]- 2474 May, [facility] [place] [facility] [address] [id number] [place] [address]- 4442 May, [facility] [place] [facility] [address] [id number] [place] [address]- 4051 17 May, 2011 [facility] [address] [id number] [place] [address]- 3340 May, [facility] [address] [id number] [place] [address]- 3380 Apr, [facility] [address] [id number] [place] [address]- 7899 Apr, [facility] [address] [id number] [place] [address]- 1758 Apr, [facility] [address] [id number] [place] [address]- 7211 Apr, [facility] [address] [id number] [place] [address]- 3688 Mar, [facility] [address] [id number] [place] [address]- 8018 Feb, [facility] [address] [id number] [place] [address]- 1073 16 Dec, 2010 [facility] [address] [id number] [place] [address]- 4823 Nov, [facility] [address] [id number] [place] [address]- 0167 15 Jul, 2010 [facility] [address] [id number] [place] [address]- 3547 30 Apr, 2010 [facility] [address] [id number] [place] [address]- 2277 29 Apr, 2010 [facility] [address] [id number] [place] [address]- 8659 09 Apr, 2010 [facility] [address] [id number] [place] [address]- 6490 Mar, [facility] [address] [id number] [place] [address]- 3801 Mar, [facility] [id number] [address] 4750 Mar, [facility] [id number] [address] 1395 Feb, [facility] [address] [address] Feb, [facility] [address] [address] 8541 Feb, [facility] [address] [address] 4[address] Feb, [facility] [address] [address] 2037 Dec, [facility] [address] [place] [address]- 1644 Oct, [facility] [id number] [address]- 0192 Oct, IMMUNIZATIONS No Known Immunizations SOCIAL HISTORY Never Assessed REASON FOR VISIT [place] [place] CARE VITAL SIGNS MEDICATIONS Unknown [...]
--- OUTSIDE RECORDS SUMMARY | 2018-08-27 08:16 | XMS REPORT ---
Author Author Migration, Doctor Organization [facility] Address Unknown Phone Unavailable Care Team Providers Care Hunter Guide Name Role Phone Migration, Doctor Unavailable Unavailable PROBLEMS Type Condition ICD9-CM Code UTG20-DA Code Onset Dates Condition Status SNOMED Code Problem Chronic obstructive pulmonary disease, unspecified COPD type J44.9 Active 32556767 Problem Chronic hepatitis C B18.2 Active 374345029 Problem Anxiety F41.9 Active 91976841 Problem Essential hypertension I10 Active 37057441 Problem Epilepsy, unspecified, not intractable, without status epilepticus G40.909 Active 950853257 Problem 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 Active [id number] Problem Rheumatoid arthritis involving multiple sites, unspecified rheumatoid factor presence M06.9 Active 738783636 Problem Panic attacks F41.0 Active 830862457 Problem Depressive disorder, not elsewhere classified F32.9 Active 78388799 Problem Porokeratosis Q82.8 Active 888109570 Problem Other chronic pain G89.29 Active 62702263 Problem COPD exacerbation J44.1 Active 943208556 Problem Seasonal allergic rhinitis, unspecified allergic rhinitis trigger J30.2 Active 828851554 Problem 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 Active 11711314 Problem Lumbar radiculopathy, chronic M54.16 Active 340376883 Problem Gastroesophageal reflux disease without esophagitis K21.9 Active 432972216 Problem Methamphetamine abuse F15.10 Active 725783638 Problem Situational depression F43.21 Active 69082771 Problem MDD (major depressive disorder), recurrent episode, moderate F33.1 Active 912019259 Problem KARY (generalized anxiety disorder) F41.1 Active 18181142 Problem Psoriasis L40.9 Active 8337865 ALLERGIES No Information ENCOUNTERS Encounter Location Date Diagnosis [facility] [place] [address] [facility] [id number] [address] Aug, [facility] [place] [address] [facility] [id number] [address] Jul, Essential hypertension I10 and Lumbar radiculopathy, chronic M54.16 [facility] [place] [address] [place] [id number] [place] [address] 6[address]71- 119[address] Jul, [facility] [place] [address] [address] Jul, Cervical radiculopathy M54.12 [facility] [address] [address] Jun, Shortness of breath R06.02 and COPD exacerbation J44.1 [place] [address] [id number] [place] [address] 15652- 6997 May, [place] [address] [address] May, Cervical radiculopathy M54.12 and Low back pain M54.5 [place] [address] 8[address]- [address] Apr, Screening for breast cancer Z12.31 [place] [address] [address]- [address] Apr, Chronic obstructive pulmonary disease, unspecified COPD type J44.9 [place] [address] [place] [id number] [place] [address] 32656- 3661 Apr, [place] [address] 29476- 8265 Apr, Essential hypertension I10 [place] [address] [id number] [place] [address] 25987- 1394 Apr, Essential hypertension I10 ; Psoriasis L40.9 and Epistaxis R04.0 [place] [address] [address]- 1985 Apr, [place] [address] 7[address]87- [address] Mar, MDD (major depressive disorder), recurrent episode, moderate F33.1 [place] [address] [place] [id number] [place] [address] 15066- 6178 08 Mar, 2018 MDD (major depressive disorder), recurrent episode, moderate F33.1 and KARY (generalized anxiety disorder) F41.1 [place] [address] [id number] [place] [address] 63604- 0512 18 Feb, 2018 Acute non-recurrent pansinusitis J01.40 and Encounter for immunization Z23 [address] [address] 04 Feb, 2018 Situational depression F43.21 and Screening for breast cancer Z12.[address] [address]60- [address] Feb, Chronic obstructive pulmonary disease, unspecified COPD type J44.[address] 00969- 9274 Oct, Essential hypertension I10 ; Rheumatoid arthritis involving multiple sites, unspecified rheumatoid factor presence M06.9 and Chronic hepatitis C B18.[address] 82431- 6567 Oct, [address] 72477- 7560 Oct, Fissure in skin of foot R23.[address] 01741- 2627 Oct, Essential hypertension I10 [place] [address] 9[address]17- 6507 Oct, 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 [place] [address] 96129- 5508 September, [address] 05162- 3168 September, Pain in right ankle and joints of right foot M25.571 and Other chronic pain G89.29 [place] [address] 06328- 6564 Aug, Essential hypertension I10 ; Rheumatoid arthritis involving multiple sites, unspecified rheumatoid factor presence M06.9 ; Gastroesophageal reflux disease without esophagitis K21.9 ; Anxiety F41.9 ; 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 and Dermatitis L30.9 [place] [address] 85269- 1792 Aug, Onychomycosis B35.1 ; Peroneal tendinitis, unspecified laterality M76.70 and Porokeratosis Q82.[address] 90052- 8909 Jul, Porokeratosis Q82.8 ; Hyperhidrosis L74.519 and Callus of foot L84 [address] 70714- [address] Apr, [place] [address] 63673- 9145 Apr, [address] [address]- 1990 Mar, Well woman exam (no gynecological exam) Z00.00 ; Plantar wart B07.0 ; Pain of left foot M79.672 ; Pain in right foot M79.671 and Rheumatoid arthritis involving multiple sites, unspecified rheumatoid factor presence M06.9 [place] [address] 89204- 8903 Nov, Bilateral low back pain, with sciatica presence unspecified M54.[address] 80186- 1495 Oct, Chronic obstructive pulmonary disease, unspecified COPD type J44.9 [place] [address] 64253- 4933 September, [place] [address] [place] [address] September, Bilateral low back pain, with sciatica presence unspecified M54.[address] [facility] [address] [address] September, Body aches R52 and Upper respiratory infection, acute J06.9 [facility] [address] [place] [address] September, [facility] [address] 828[address] September, Left wrist injury, initial encounter S69.92XA and Contusion of wrist, left S60.212A [place] [address] 47421- 2571 Aug, Depressive disorder, not elsewhere classified F32.9 [facility] [address] [address] Jul, Seasonal allergic rhinitis, unspecified allergic rhinitis trigger J30.2 ; Rheumatoid arthritis flare M06.9 and Essential hypertension I10 [place] [address] 40138- 5[address] Jul, [place] [address] 24166- 8386 Jul, Essential hypertension I10 [place] [address] 70323- 7771 Jul, Essential hypertension I10 ; Other chronic pain G89.29 ; Rheumatoid arthritis involving multiple sites, unspecified rheumatoid factor presence M06.9 and Insomnia due to medical condition G47.01 [place] [address] 09938- 0495 Jul, [facility] [place] [address] [address]- [address] Jul, [place] [address] 84325- 8796 Jun, [place] [id number] [place] [address] 77948- 9181 07 Jun, 2016 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 ; Essential hypertension I10 ; Chronic obstructive pulmonary disease, unspecified COPD type J44.9 ; Panic attacks F41.0 ; Hot flashes R23.2 ; Rheumatoid arthritis involving multiple sites, unspecified rheumatoid factor presence M06.9 ; Pain in thoracic spine M54.6 ; Other chronic pain G89.29 and Arthralgia, unspecified joint M25.50 [facility] [address] [address] May, Rheumatoid arthritis flare M06.9 [facility] [address] [address] 17 May, 2016 Left lower quadrant pain R10.32 ; Abdominal pain in female R10.9 ; Constipation, unspecified constipation type K59.00 and Gastroesophageal reflux disease without esophagitis K21.9 [facility] [address] [address] Mar, Herpes genitalis in women A60.09 ; Bilateral impacted cerumen H61.23 and Injury of right ring finger, initial encounter S69.91XA [place] [id number] [place] [address] 51194- 4707 Mar, [place] [id number] [place] [address] 80564- 7071 Nov, Essential hypertension I10 ; Chronic hepatitis C B18.2 ; Arthralgia, unspecified joint M25.50 ; Chronic obstructive pulmonary disease, unspecified COPD type J44.9 ; Methamphetamine abuse F15.10 ; Simple chronic bronchitis J41.0 ; Hemorrhoids, unspecified hemorrhoid type K64.9 and Anxiety F41.9 [facility] [place] [id number] [place] [address] -[address] Nov, [address] 95659- 1772 Feb, Elevated glucose R73.09 [facility] [place] [address] [address] Feb, Elevated glucose R73.09 [facility] [place] [id number] [place] [address] 341870- 8133 Oct, [facility] [place] [id number] [place] [address] 16295- 9130 Oct, [facility] [place] [id number] [place] [address] 415112- 5895 Oct, Essential hypertension, benign 401.1 ; Chronic hepatitis C without mention of hepatic coma 070.54 ; Anxiety state, unspecified 300.00 ; Genital herpes 054.10 ; Methamphetamine abuse 305.70 and Excessive cerumen in both ear canals 380.4 [facility] [place] [id number] [place] [address] 93207- 4601 Oct, [facility] [place] [id number] [place] [address] 85128- 8651 Aug, [facility] [place] [id number] [place] [address] 99130- 6002 Aug, [facility] [place] [id number] [place] [address] 60976- 1440 Jul, [facility] [place] [address] [place] [address] 16714- 4834 Jul, [facility] [place] [id number] [place] [address] 23670- 4923 Jun, [facility] [place] [address] [place] [address] 31401- 3360 Jun, [facility] [place] [address] [id number] [place] [address] 709789- 0763 Jun, [facility] [place] [address] [place] [address] 496401- 8236 Jun, [facility] [place] [id number] [place] [address] [place] [address]- 1547 May, [facility] [place] [facility] [address] [id number] [place] [address]- 9631 May, [facility] [place] [facility] [address] [id number] [place] [address]- 6928 May, [facility] [place] [facility] [address] [id number] [place] [address]- 4649 May, [facility] [place] [facility] [address] [id number] [place] [address]- 5591 May, [facility] [place] [facility] [address] [id number] [place] [address]- 7465 May, [facility] [place] [facility] [address] [id number] [place] [address]- 5740 May, [facility] [address] [id number] [place] [address]- 2131 Apr, [facility] [place] [facility] [address] [id number] [place] [address]- 0996 Apr, [facility] [place] [facility] [address] [id number] [place] [address]- 7804 Apr, [facility] [place] [facility] [address] [id number] [place] [address]- 6044 Dec, [facility] [place] [facility] [address] [id number] [place] [address]- 8551 Dec, [facility] [place] [facility] [address] [id number] [place] [address]- 2719 Nov, [facility] [place] [facility] [address] [id number] [place] [address]- 4537 Nov, [facility] [place] [facility] [address] [id number] [place] [address]- 1293 Nov, [facility] [place] [facility] [address] [id number] [place] [address]- 6471 Nov, [facility] [place] [facility] [address] [id number] [place] [address]- 9294 Nov, [facility] [place] [facility] [address] [id number] [place] [address]- 4105 Nov, [facility] [place] [facility] [address] [id number] [place] [address]- 6441 Nov, [facility] [place] [facility] [address] [id number] [place] [address]- 8569 Nov, [facility] [place] [facility] [address] [id number] [place] [address]- 1706 Nov, [facility] [place] [facility] [address] [id number] [place] [address]- 6025 Nov, [facility] [place] [facility] [address] [id number] [place] [address]- 9256 Nov, [facility] [place] [facility] [address] [id number] [place] [address]- 2643 Nov, [facility] [place] [facility] [address] [id number] [place] [address]- 7279 Oct, [facility] [place] [facility] [address] [id number] [place] [address]- 5777 Oct, [facility] [place] [facility] [address] [id number] [place] [address]- 5471 September, [facility] [place] [facility] [address] [id number] [place] [address]- 3129 September, [facility] [place] [facility] [address] [id number] [place] [address]- 6031 Aug, [facility] [place] [facility] [address] [id number] [place] [address]- 4766 Aug, [facility] [place] [facility] [address] [id number] [place] [address]- 2869 Aug, [facility] [place] [facility] [address] [id number] [place] [address]- 0723 Aug, 2013 [facility] [place] [facility] [address] [id number] [place] [address]- 4017 14 Aug, 2013 [facility] [place] [facility] [address] [id number] [place] [address]- 9332 14 Aug, 2013 [facility] [place] [facility] [address] [id number] [place] [address]- 4190 Aug, [facility] [place] [facility] [address] [id number] [place] [address]- 7782 Aug, [facility] [place] [facility] [address] [id number] [place] [address]- 2873 Aug, [facility] [place] [facility] [address] [id number] [place] [address]- 0888 Aug, [facility] [place] [facility] [address] [id number] [place] [address]- 6455 Aug, [facility] [place] [facility] [address] [id number] [place] [address]- 1946 Jul, [facility] [place] [facility] [address] [id number] [place] [address]- 2825 Jul, [facility] [place] [facility] [address] [id number] [place] [address]- 2009 Jul, [facility] [place] [facility] [address] [id number] [place] [address]- 4598 Jul, [facility] [place] [facility] [address] [id number] [address]- 8845 05 Jul, 2013 [facility] [place] [facility] [address] [id number] [place] [address]- 3033 Jul, [facility] [place] [facility] [address] [id number] [place] [address]- 4875 Jul, [facility] [place] [facility] [address] [id number] [place] [address]- 9526 Jun, [facility] [place] [facility] [address] [id number] [place] [address]- 6640 Jun, [facility] [place] [facility] [address] [id number] [place] [address]- 1516 Jun, [facility] [place] [facility] [address] [id number] [place] [address]- 2546 Jun, [facility] [place] [facility] [address] [id number] [place] [address]- 4536 Jun, [facility] [place] [facility] [address] [id number] [place] [address]- 254 Jun, [facility] [place] [facility] [address] [id number] [place] [address]- 2196 Jun, [facility] [place] [facility] [address] [id number] [place] [address]- 4450 Jan, [facility] [place] [facility] [address] [id number] [place] [address]- 5714 Nov, [facility] [place] [facility] [address] [id number] [place] [address]- 9490 Nov, [facility] [place] [facility] [address] [facility] [id number] [place] [address]- 5429 Aug, [facility] [place] [facility] [address] [facility] [id number] [place] [address]- 2382 Jun, [facility] [place] [facility] [address] [facility] [id number] [place] [address]- 8064 Jun, [facility] [place] [facility] [address] [id number] [place] [address] Jun, [facility] [place] [facility] [address] [id number] [place] [address]- 2922 May, [facility] [place] [facility] [address] [id number] [place] [address]- 4920 May, [facility] [place] [facility] [address] [id number] [place] [address]- 9076 May, [facility] [address] [id number] [place] [address]- 2335 May, [facility] [place] [facility] [address] [id number] [place] [address]- 3787 Apr, [facility] [place] [facility] [address] [id number] [place] [address]- 5160 Apr, [facility] [place] [facility] [address] [id number] [place] [address]- 8243 Apr, [facility] [place] [facility] [address] [id number] [place] [address]- 0662 Apr, [facility] [place] [facility] [address] [id number] [place] [address]- 6338 Mar, [facility] [place] [facility] [address] [id number] [place] [address]- 7840 Feb, [facility] [place] [facility] [address] [id number] [place] [address]- 9870 16 Dec, 2010 [facility] [place] [facility] [address] [id number] [place] [address]- 9752 Nov, [facility] [place] [facility] [address] [id number] [place] [address]- 0821 Jul, [facility] [place] [facility] [address] [id number] [place] [address]- 1194 30 Apr, 2010 [facility] [place] [facility] [address] [id number] [place] [address]- 3098 29 Apr, 2010 [facility] [place] [facility] [address] [id number] [place] [address]- 1534 Apr, [facility] [place] [facility] [address] [id number] [place] [address]- 6473 Mar, [facility] [place] [facility] [address] [id number] [place] [address]- 2601 Mar, [facility] [place] [facility] [id number] [address]- 5576 Mar, [facility] [place] [id number] [address] Feb, [facility] [place] [address] [address]- 9214 Feb, [facility] [place] [address] [address]- 7285 Feb, [facility] [place] [address] 4431 Feb, [facility] [place] [address] [address]- 1264 Dec, [facility] [place] [address] [address]- 4267 Oct, [facility] [place] [address] 6634 Oct, IMMUNIZATIONS No Known Immunizations SOCIAL HISTORY Never Assessed REASON FOR VISIT [employer] [facility] [place] VITAL SIGNS MEDICATIONS Medication Instructions Dosage Frequency Start Date End Date Duration Status Anusol-HC 2.5 % apply 1 Maia to the affected area(s) by Topical route 4 times per day May, Active ProAir HFA 90 mcg/actuation inhale 2 puffs by inhalation route every 4 hours as needed May, Active Excedrin Migraine 250-250-65 mg 2 Tablet PRN Aug, Active Zofran ODT 4 mg take 1 tablets by Oral route every 8 hours PRN Nausea or Vomiting May, Active RESULTS No Results PROCEDURES No Known [...] septic and possible pneumonia Surgical History hysterectomy 1992 Surgical History lumpectomy, left breast Surgical History cholecystectomy Hospitalization History Hospitalization for surgery only
--- NOTE | 2018-08-27 08:23 | Progress Note-Pre Operative ---
Pre-Operative Progress Note H&P Reviewed The H&P was reviewed, patient examined and no changes noted. Date Seen by Provider: Aug 27, 2018 Time Seen by Provider: 08:20 Date H&P Reviewed: Aug 27, 2018 Time H&P Reviewed: 08:15 Pre-Operative Diagnosis: Malfunctioning [place] port ANDRES HOLDEN APRN Aug 27, 2018 08:23
[2018-08-27] MEDS ORDERED: HYDR-3812 PO (08:26)
[2018-08-27] MEDS ORDERED: LACTATED RINGERS 1,000 ML IV PRN (08:26)
--- NOTE | 2018-08-27 08:26 | Discharge Inst-Surgical ---
D/C Lap Instructions-KIDO New, Converted, or Re-Newed RX: RX on Chart Follow Up Appt in 2 weeks Activity as tolerated No driving for 24 hours No driving while on pain medications Regular Diet Symptoms to Report: Fever over 101 degree F, Nausea/Vomiting Infection Signs and Symptoms to report: Increased redness, Foul odor of wound, Increased drainage Bathing instructions: May shower Operative Area Clean/Dry; Keep incision clean/dry If any problems/questions: Contact your physician or go to Emergency Room ANDRES HOLDEN APRN Aug 27, 2018 08:26
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
[2018-08-27] MEDS ORDERED: ceFAZolin 2 GM IV Premixed 50 ML IV ONE (08:30)
[2018-08-27] MEDS ORDERED: HYDROcodone/APAP 5 MG/325 MG (LORTAB) TAB PO ONE (08:30)
[2018-08-27] MEDS ORDERED: ONDANSETRON 4 MG/2 ML (SDV) Z0FRAN IVP PRN (08:30)
[2018-08-27] MEDS ORDERED: ACETAMINOPHEN 325 MG TABLET PO PRN (08:30)
[2018-08-27] MEDS ORDERED: morphine INJ 10 MG/ML 1ML (SYR OR VIAL) IVP PRN (08:30)
[2018-08-27 08:51] VITALS: BP 129/86
[2018-08-27] MEDS ORDERED: HEParin (CENTRAL IV FLUSH) 500 UNIT/5 ML SYR ONE (08:54)
[2018-08-27] MEDS ORDERED: BUP/EPI 0.5% 1:200,000 (SENSORCAINE) 30 ML VIAL ONE (08:54)
[2018-08-27] MEDS ORDERED: MIDAZOLAM 2 MG/2 ML (VERSED) VIAL ONE (09:03)
[2018-08-27] MEDS ORDERED: PROPOFOL INJECTION 50 ML IV ONE (09:05)
[2018-08-27] MEDS ORDERED: fentaNYL INJECTION 100 MCG/2 ML AMP ONE (10:59)
--- NOTE | 2018-08-27 11:34 | Progress Note-Post Operative ---
Post-Operative Progess Note Surgeon (s)/Hyperbaric Technologist (s) Surgeon JOY ARIAS MD Hyperbaric Technologist: molly camilo [employer] REPA[employer]ER Pre-Operative Diagnosis Malfunctioning Groshong port Post-Operative Diagnosis same,rhumatoid arthritis Procedure & Operative Findings Date of Procedure 08/27/18 Procedure Performed/Findings removal and replacement left subclavian groshong catheter under flouroscopy. Anesthesia Type MAC with local Estimated Blood Loss Estimated blood loss (mL): minimal Specimens/Packing Specimens Removed none JOY ARIAS MD Aug 27, 2018 11:33
[2018-08-27 12:15] VITALS: BP 104/76
--- NOTE | 2018-08-27 12:30 | NUR ---
PT REQUESTING PAIN MEDICATION FOR LOW BACK PAIN THAT SHE RATES 12/19. HYDROCODONE PROVIDED FOR PAIN BUT PT REPORTS THAT SHE WOULD RATHER WAIT UNTIL SHE GOES HOME. HYDROCODONE WASTED, WITNESSED PER Kang PATRICK RN.
[2018-08-27] MEDS ORDERED: HYDROcodone/APAP 5 MG/325 MG (LORTAB) TAB ONE (12:31)
--- NOTE | 2018-08-27 12:39 | Diagnostic Imaging Report ---
INDICATION: Catheter placement. COMPARISON: Comparison made with prior examination from 07/21/2018. FINDINGS: The heart size is normal. Lungs are clear. There is no pleural effusion or pneumothorax. Mediastinum is unremarkable. There is a left subclavian central venous catheter in place with its tip in the superior vena cava. IMPRESSION: The left subclavian central venous catheter is in satisfactory position. No acute cardiopulmonary abnormality. Dictated by: Dictated on workstation # [id number]
[2018-08-27 12:45] VITALS: BP 112/65
[2018-08-27 12:55] VITALS: BP 112/65
--- NOTE | 2018-08-27 13:07 | OPERATIVE REPORT ---
DATE OF SERVICE: 08/27/2018 ATTENDING PRIMARY CARE PHYSICIAN: Dr. Ledesma. PREOPERATIVE DIAGNOSIS: Malfunctioning Groshong implantable catheter with history of rheumatoid arthritis and seizure disorder. POSTOPERATIVE DIAGNOSIS: Malfunctioning Groshong implantable catheter with history of rheumatoid arthritis and seizure disorder. PROCEDURE: Removal and replacement of left subclavian Groshong implantable catheter under fluoroscopy. SURGEON: Joy Arias MD STAGE SET DESIGNER: Ming Lee APRN ANESTHESIA: Monitored anesthesia care with local. ESTIMATED BLOOD LOSS: Minimal. FINDINGS: The new catheter tip was at the superior vena cava - right atrial junction. DISPOSITION: The patient tolerated the procedure well. INDICATIONS: The patient is a 48-year-old female known to us. We have seen in the past for gastroesophageal reflux disease as well as placement of Groshong implantable catheter in 2009. This has worked well for many years; however, states that this now only works if accessing is done at a certain angulation, which is mostly likely indicating some level of dysfunction as well as clot formation within the catheter. She states that she does use the catheter quite a bit of medications related to her rheumatoid arthritis. She also does have recent hospital admissions due to urinary tract infections as well as the pneumonia. DESCRIPTION OF PROCEDURE: The patient was brought to the operating room, laid supine on the table. After adequate IV pain and sedative medications and monitored anesthesia care, the chest and neck were prepped and draped in standard surgical fashion. A 0.5% Marcaine with epinephrine was then used to anesthetize the overlying skin in the left subclavian region as well as the previously placed port. The skin incision was made along the previous skin incision using a 15 blade. Subcutaneous tissue was dissected using electrocautery. The capsule around the port was then opened using electrocautery. The port was then eviscerated out of the chest reservoir and the catheter removed intact while holding pressure. Good hemostasis was observed and cannulating needle was used to access the left subclavian vein and the guidewire inserted under fluoroscopy. The cannulating needle removed, and the venous dilator and the sheath were then introduced over the guidewire. The guidewire and dilator were then removed and the Groshong catheter was placed until the tip of the catheter was at the superior vena cava/right atrial junction. The sheath was then removed. The inner wire within the catheter was then removed and the port placed onto the catheter. The port was then placed into the previous chest reservoir and sutured to the anterior pectoralis fascia using a 3-0 Vicryl interrupted sutures. The subcutaneous tissue was then reapproximated using 3-0 Vicryl interrupted sutures. Skin was closed using 4-0 Monocryl running subcuticular suture. Skin incision was then cleaned and covered with Dermabond. The patient tolerated the procedure well. We will get a post-procedure chest x-ray and once confirmation of placement, the catheter may be accessed and used any time. Job ID: [id number] DocumentID: [id number] Dictated Date: 08/27/2018 11:47:13 Doctor Podiatric Medicine Date: 08/27/2018 13:07:09 Dictated By: JOY ARIAS MD
--- NOTE | 2018-08-27 13:13 | Anesthesia-General Post-Op ---
MAC Patient Condition Mental Status/LOC: Same as Preop Cardiovascular: Satisfactory Nausea/Vomiting: Absent Respiratory: Satisfactory Pain: Controlled Complications: Absent Post Op Complications Complications None Follow Up Care/Instructions Patient Instructions None needed. Anesthesiology Discharge Order Discharge Order Patient is doing well, no complaints, stable vital signs, no apparent adverse anesthesia problems. No complications reported per nursing. PREMA BRENNER CRNA Aug 27, 2018 13:13
--- NOTE | 2018-08-27 14:23 | Diagnostic Imaging Report ---
INDICATION: Fluoroscopy during port removal and port placement Fluoroscopy was provided to Dr. Coronado during port removal and port placement. 17 seconds of fluoroscopy was utilized. IMPRESSION: Fluoroscopy in the OR during port placement. Dictated by: Dictated on workstation # [id number]
== END 2018-08-27 12:55 | disposition home or self-care (01) ==
LOC: SDC 08:03
PROVIDERS: ATTEND Surgery
DX: T85.618A Breakdown (mechanical) of other specified internal prosthetic devices, implants and grafts, initial encounter (principal); M06.9 Rheumatoid arthritis, unspecified; G40.909 Epilepsy, unspecified, not intractable, without status epilepticus; I10 Essential (primary) hypertension; K21.9 Gastro-esophageal reflux disease without esophagitis; J44.9 Chronic obstructive pulmonary disease, unspecified; F17.210 Nicotine dependence, cigarettes, uncomplicated; F41.9 Anxiety disorder, unspecified; Z79.899 Other long term (current) drug therapy; B19.20 Unspecified viral hepatitis C without hepatic coma; I69.354 Hemiplegia and hemiparesis following cerebral infarction affecting left non-dominant side; Z79.82 Long term (current) use of aspirin
CPT/HCPCS: 71045; 82962; 87081

== ENCOUNTER 2018-12-25 11:00 | Outpatient (RCR) | payer MEDICAID ==
[2018-10-02 11:30] VITALS: BP 133/76
[2018-10-30 11:33] VITALS: BP 128/72
[2018-11-27 13:59] VITALS: BP 138/90
[~2018-12-25] VITALS: Ht 152.4 cm; Wt 82.6 kg
[2018-12-25 11:00] VITALS: BP 144/92
[~2018-12-25 11:00] MED LIST changes: +CATHETER FLUSH 10 ML SYR INJ PRN; +CATHETER FLUSH 10 ML SYR IV ONE; +HYDR-3812 PO
== END 2018-12-31 | disposition home or self-care (01) ==
LOC: SDC 11:00
PROVIDERS: ATTEND Nurse Practitioner Family
DX: Z45.2 Encounter for adjustment and management of vascular access device (principal)
CPT/HCPCS: 96523

== ENCOUNTER 2019-01-14 04:24 | Observation (INO) | payer MEDICAID ==
[~2019-01-14] VITALS: Ht 154.9 cm; Wt 80.7 kg
[~2019-01-14 04:24] MED LIST changes: -CATHETER FLUSH 10 ML SYR INJ PRN; -CATHETER FLUSH 10 ML SYR IV ONE
--- NOTE | 2019-01-14 04:38 | ED Chest Pain ---
General Stated Complaint: CP Source: patient, EMS Exam Limitations: no limitations (PAULA VILLAR) History of Present Illness Date Seen by Provider: Jan 14, 2019 Time Seen by Provider: 04:19 Initial Comments The patient presents to ER by EMS from home with chief complaint that about 30 minutes prior to arrival she was awoken with chest pain in the center of her chest not radiating, pressure feeling like an elephant sitting on her chest and some shortness of breath. She had some sweats but she attributes this to her going through menopause. She has no nausea cough fever chills, weight gain or swelling or edema. She has no history of coronary disease but she does have high blood pressure. She says her blood pressures been running pretty good on the 2 blood pressure medicines aches. She does have a familial medical history of her father had his first heart attack at age 45. She denies recreational drug use but she does smoke cigarettes. She is prediabetic not on any medications. She follows with Dr. Lees at the [facility]. She has not had any recent surgeries or periods of immobility. No history of lung disease. No wheezing or stridor. History of GERD. She says now maybe it was a panic attack in retrospect. Patient has a port in place because she plans to use immunologic's for her rheumatoid arthritis. She had had a bad reaction to Plaquenil. In July she was in the hospital for a septic, UTI, acute renal failure. (PAULA VILLAR) Allergies and Home Medications Allergies Coded Allergies: methotrexate (Verified Allergy, Severe, SEIZURE, 08/24/18) nitrofurantoin (Verified Allergy, Mild, 08/24/18) ziprasidone (Verified Allergy, Mild, 08/24/18) aripiprazole (Verified Adverse Reaction, Intermediate, TONGUE SWELLING, 08/24/18) Home Medications Albuterol Sulfate 6.7 Gm Hfa.aer.ad, 1 PUFF IH Q4H PRN for SHORTNESS OF BREATH Prescribed by: NELSON ROBERTSON on 07/21/18 1048 Amlodipine Besylate 5 Mg Tablet, 5 MG PO DAILY Prescribed by: NELSON ROBERTSON on 07/21/18 1048 Aspirin/Acetaminophen/Caffeine 1 Each Tablet, 1 EACH PO DAILY PRN for MIGRAINE, (Reported) Atenolol 50 Mg Tablet, 50 MG PO DAILY Prescribed by: NELSON ROBERTSON on 07/21/18 1048 Hydrocodone/Acetaminophen 1 Each Tablet, 1-2 TAB PO Q4H Prescribed by: ANDRES HOLDEN on 08/27/18 0826 Hydrocortisone 30 Gm Cream.appl, 1 APPLIC RC PRN PRN for ITCHING Prescribed by: NELSON ROBERTSON on 07/21/18 1048 Ondansetron 4 Mg Tab.rapdis, 4 MG PO Q4H PRN for NAUSEA/VOMITING-1ST LINE Prescribed by: NELSON ROBERTSON on 07/21/18 1048 Pantoprazole Sodium 40 Mg Tablet.dr, 40 MG PO DAILY Prescribed by: NELSON ROBERTSON on 07/21/18 1048 Tramadol HCl 50 Mg Tablet, 50 MG PO BID PRN for PAIN-MILD TO MODERATE Prescribed by: NELSON ROBERTSON on 07/21/18 1048 Patient Home Medication List Home Medication List Reviewed: Yes (PAULA VILLAR) Review of Systems Review of Systems Constitutional: No chills, No fever, No malaise EENTM: No Eye Pain, No Ear Pain Respiratory: Denies Cough; Shortness of Air Cardiovascular: See HPI, Chest Pain; Denies Edema, Denies Irregular Heart Rate, Denies Lightheadedness, Denies Palpitations, Denies Syncope Gastrointestinal: Denies Abdomen Distended, Denies Abdominal Pain, Denies Constipated, Denies Diarrhea, Denies Nausea Genitourinary: Denies Burning, Denies Discharge Musculoskeletal: No back pain, No joint pain Skin: No pruritus, No rash (PAULA VILLAR) Past Bhvahxr-Hwneyp-Gqlfut Hx Patient Social History Alcohol Use: Denies Use Recreational Drug Use: Yes Drug of Choice: Hx THC, + IV METH Smoking Status: Current Everyday Smoker Type Used: Cigarettes 2nd Hand Smoke Exposure: No Recent Foreign Travel: No Contact w/Someone Who Travel: No Recent Hopitalizations: Yes (July 14, 2018 hospitalized for sepsis) (PAULA VILLAR) Immunizations Up To Date Tetanus Booster (TDap): More than 5yrs PED Vaccines UTD: No Date of Influenza Vaccine: Jan 10, 2018 (PAULA VILLAR) Seasonal Allergies Seasonal Allergies: No (PAULA VILLAR) Past Medical History Surgeries: Yes Adenoidectomy, Breast, Cardiac, Gallbladder, 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, Oophorectomy, Tonsillectomy, Vascular Surgery Respiratory: Yes (SPONTANEOUS RIGHT PNEUMOTHORAX) Pneumonia, Chronic Bronchitis, COPD Cardiac: Yes Hypertension Neurological: Yes Concussion, Headaches /Migraines, Seizure Disorder, Stroke, Traumatic Brain Injury 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 Sexually Transmitted Disease: No Genitourinary: Yes Bladder Infection, Kidney Stones Gastrointestinal: Yes (HEPATITIS C --NO TREATMENT) Gastroesophageal Reflux, Liver Disease/Jaundice, Chronic Constipation, Pancreatitis, Chronic Diarrhea, Hepatitis, Ulcer Musculoskeletal: Yes Degenerate Disk Disease, Arthritis, Fibromyalgia, Rheumatoid Arthritis, Back Injury, Chronic Back Pain, Fractures Endocrine: No HEENT: Yes (EDENTULOUS, READING GLASSES) Loss of Vision: Bilateral Hearing Impairment: Denies Cancer: No Psychosocial: Yes (HX OF POLYSUBSTANCE ABUSE) Anxiety, Bipolar, Depression Integumentary: No Blood Disorders: No (PAULA VILLAR) Physical Exam Vital Signs Vital Signs - First Documented 01/14/19 01/14/19 04:25 04:30 Temp 97.7 Pulse 97 Resp 22 B/P (MAP) 164/111 (128) Pulse Ox 97 O2 Delivery Room Air (MYRIAM LANDA MD) Vital Signs Capillary Refill : (PAULA VILLAR) Height, Weight, BMI Height: 5'0.00" Weight: 182lbs. 0.0oz. 82.262316vt; 35.5 BMI Method:Stated General Appearance: WD/WN, Anxious HEENT: PERRL/EOMI, Pharynx Normal, Moist Mucous Membranes Neck: Full Range of Motion, Normal Inspection Respiratory: Chest Non Tender, Lungs Clear, Normal Breath Sounds, No Accessory Muscle Use, No Respiratory Distress Cardiovascular: Regular Rate, Rhythm, No Edema, Normal Peripheral Pulses Gastrointestinal: Normal Bowel Sounds, Non Tender, Soft Extremity: Normal Capillary Refill, Normal Inspection, Non Tender, No Calf T enderness, No Pedal Edema Neurologic/Psychiatric: Alert, Oriented x3 Skin: Normal Color, Warm/Dry (PAULA VILLAR) Progress/Results/Core Measures Results/Orders Lab Results Laboratory Tests Test 01/14/19 04:40 Range/Units White Blood Count 7.1 4.3-11.0 10^3/uL Red Blood Count 4.34 L 4.35-5.85 10^6/uL Hemoglobin 12.8 11.5-16.0 G/DL Hematocrit 38 35-52 % Mean Corpuscular Volume 87 80-99 FL Mean Corpuscular Hemoglobin 30 25-34 PG Mean Corpuscular Hemoglobin Concent 34 32-36 G/DL Red Cell Distribution Width 15.2 H 10.0-14.5 % Platelet Count 197 130-400 10^3/uL Mean Platelet Volume 10.7 H 7.4-10.4 FL Neutrophils (%) (Auto) 41 L 42-75 % Lymphocytes (%) (Auto) 46 H 12-44 % Monocytes (%) (Auto) 10 0-12 % Eosinophils (%) (Auto) 2 0-10 % Basophils (%) (Auto) 0 0-10 % Neutrophils # (Auto) 2.9 1.8-7.8 X 10^3 Lymphocytes # (Auto) 3.3 1.0-4.0 X 10^3 Monocytes # (Auto) 0.7 0.0-1.0 X 10^3 Eosinophils # (Auto) 0.2 0.0-0.3 10^3/uL Basophils # (Auto) 0.0 0.0-0.1 10^3/uL Prothrombin Time 13.6 12.2-14.7 SEC INR Comment 1.0 0.8-1.4 Activated Partial Thromboplast Time 45 H 24-35 SEC Sodium Level 142 135-145 MMOL/L Potassium Level 3.3 L 3.6-5.0 MMOL/L Chloride Level 109 H 98-107 MMOL/L Carbon Dioxide Level 23 21-32 MMOL/L Anion Gap 10 5-14 MMOL/L Blood Urea Nitrogen 15 7-18 MG/DL Creatinine 0.84 0.60-1.30 MG/DL Estimat Glomerular Filtration Rate > 60 BUN/Creatinine Ratio 18 Glucose Level 109 H 70-105 MG/DL Calcium Level 8.5 8.5-10.1 MG/DL Corrected Calcium 8.7 8.5-10.1 MG/DL Magnesium Level 2.0 1.6-2.4 MG/DL Total Bilirubin 0.4 0.1-1.0 MG/DL Aspartate Amino Transf (AST/SGOT) 48 H 5-34 U/L Alanine Aminotransferase (ALT/SGPT) 65 H 0-55 U/L Alkaline Phosphatase 106 40-136 U/L Myoglobin 34.9 10.0-92.0 NG/ML Troponin I < 0.028 <0.028 NG/ML B-Type Natriuretic Peptide < 10.0 <100.0 PG/ML Total Protein 7.1 6.4-8.2 GM/DL Albumin 3.8 3.2-4.5 GM/DL (MYRIAM LANDA MD) My Orders Orders - MYRIAM LANDA MD Echo W Doppler/Color Flow (01/14/19 06:45) Lorazepam Injection (Ativan Injection) (01/14/19 07:00) (MYRIAM LANDA MD) Medications Given in ED Current Medications Medications Dose Ordered Sig/Rene Route Start Time Stop Time Status Last Admin Dose Admin Aspirin 324 mg ONCE ONCE PO 01/14/19 04:45 01/14/19 04:46 DC 01/14/19 04:50 324 MG Lorazepam 0.5 mg ONCE ONCE IVP 01/14/19 07:00 01/14/19 07:01 DC 01/14/19 07:04 0.5 MG Nitroglycerin 0.4 mg UD PRN SL 01/14/19 04:45 01/14/19 04:51 0.4 MG Ticagrelor 180 mg ONCE ONCE PO 01/14/19 06:00 01/14/19 06:01 DC 01/14/19 06:08 180 MG (MYRIAM LANDA MD) Vital Signs/I&O 01/14/19 01/14/19 01/14/19 04:25 04:25 04:30 Temp 97.7 Pulse 97 Resp 22 B/P (MAP) 164/111 (128) Pulse Ox 97 O2 Delivery Room Air Room Air Room Air (MYRIAM LANDA MD) Progress Progress Note : Time: 04:56 Progress Note Aspirin and nitroglycerin. Her blood pressure is modestly elevated at 160/100. After 1 dose of nitroglycerin her pain was completely resolved. Her blood pressures 132/96. Plan to do a cardiac workup. Even with a negative troponin her heart scores for points. Observation stay w ould be indicated. (PAULA VILLAR) Progress Note : Progress Note 0630: Patient in the emergency department until she can go to heart catheter procedure today at around 11 AM. Patient is otherwise doing okay currently wit hout chest pain although is somewhat anxious. She has been prescribed Ativan so I will give her a dose IV. We have ordered echocardiogram for this morning. Monitor patient. 0746: We have received a bed assignment so patient will go upstairs pending heart catheter. Admit, observation status. Patient agrees with plan. (MYRIAM LANDA MD) Initial ECG Impression Date: Jan 14, 2019 Initial ECG Impression Time: 04:32 Initial ECG Rate: 91 Initial ECG Rhythm: Normal Sinus Initial ECG Intervals: Normal Initial ECG Impression: Normal Comment No ST elevation or depression clinically evident. (PAULA VILLAR) Diagnostic Imaging Diagonstic Imaging: Xray Plain Films/CT/US/NM/MRI: chest (1v) Comments No acute cardiopulmonary processes on one view chest x-ray. Reviewed: Reviewed by Me (PAULA VILLAR) Departure Communication (Admissions) Time/Spoke to Admitting Phy: 05:55 Discussed case lab imaging with Dr. Gilliland and she agrees to observe the patient. Time/Spoke to Consulting Phy: 05:50 Discussed case lab imaging with Dr. Scott and his plan is to keep patient nothing by mouth plan for a heart catheterization after 11:00. Brilinta now. (PAULA VILLAR) Impression Primary Impression: Chest pain Qualified Codes: R07.9 - Chest pain, unspecified Disposition: ADMITTED INPATIENT Condition: Stable Admissions Decision to Admit Reason: Admit from ER (General) Decision to Admit/Date: Jan 14, 2019 Time/Decision to Admit Time: 05:06 (PAULA VILLAR) Departure-Patient Inst. Referrals: JALIL FRYE MD (PCP/Family) Primary Care Physician PAULA VILLAR Jan 14, 2019 04:38 MYRIAM LANDA MD Jan 14, 2019 07:47
[2019-01-14] MEDS ORDERED: ASPIRIN 81 MG CHEW (CHILDREN'S ASA) PO ONE (04:45)
[2019-01-14] MEDS ORDERED: NITROGLYCERIN 0.4 MG SL TABS BTL 25'S SL PRN (04:45)
[2019-01-14 04:50] LABS: BASOPHILS % (AUTO) 0 % (0-10); EOSINOPHILS # (AUTO) 0.2 10^3/uL (0.0-0.3); EOSINOPHILS % (AUTO) 2 % (0-10); HEMATOCRIT 38 % (35-52); HEMOGLOBIN 12.8 G/DL (11.5-16.0); LYMPHOCYTES # (AUTO) 3.3 X 10^3 (1.0-4.0); LYMPHOCYTES % (AUTO) 46 % (12-44); MEAN CORPUSCULAR HEMOGLOBIN 30 PG (25-34); MEAN CORPUSCULAR HGB CONC 34 G/DL (32-36); MEAN CORPUSCULAR VOLUME 87 FL (80-99); MEAN PLATELET VOLUME 10.7 FL (7.4-10.4); MONOCYTES # (AUTO) 0.7 X 10^3 (0.0-1.0); MONOCYTES % (AUTO) 10 % (0-12); NEUTROPHILS # (AUTO) 2.9 X 10^3 (1.8-7.8); NEUTROPHILS % (AUTO) 41 % (42-75); PLATELET COUNT 197 10^3/uL (130-400); RED CELL DISTRIBUTION WIDTH 15.2 % (10.0-14.5); WHITE BLOOD COUNT 7.1 10^3/uL (4.3-11.0)
[2019-01-14 05:07] LABS: PROTHROMBIN TIME PATIENT 13.6 SEC (12.2-14.7)
[2019-01-14 05:17] LABS: ALANINE AMINOTRANSFERASE 65 U/L (0-55); ALBUMIN 3.8 GM/DL (3.2-4.5); ALKALINE PHOSPHATASE 106 U/L (40-136); BILIRUBIN,TOTAL 0.4 MG/DL (0.1-1.0); BUN/CREATININE RATIO 18; CALCIUM 8.5 MG/DL (8.5-10.1); CARBON DIOXIDE 23 MMOL/L (21-32); CHLORIDE 109 MMOL/L (98-107); CREATININE SERUM 0.84 MG/DL (0.60-1.30); GFR ESTIMATED > 60; GLUCOSE 109 MG/DL (70-105); POTASSIUM 3.3 MMOL/L (3.6-5.0); SODIUM 142 MMOL/L (135-145); TOTAL PROTEIN 7.1 GM/DL (6.4-8.2)
[2019-01-14] MEDS ORDERED: 1/2 NS W/KCL 20 MEQ/L 1,000 ML IV SCH (05:30)
[2019-01-14] MEDS ORDERED: TICAGRELOR 90 MG TABLET (BRILINTA) PO ONE (06:00)
--- NOTE | 2019-01-14 06:09 | Diagnostic Imaging Report ---
INDICATION: Chest pain. Portable chest 4:58 AM FINDINGS: Heart size and pulmonary vascularity are normal. Lungs are clear. There are no effusions or pneumothoraces. There is left subclavian Port-A-Cath with tip projecting over the SVC. IMPRESSION: No acute abnormalities in the chest. Dictated by: Dictated on workstation # [id number]
[2019-01-14] MEDS ORDERED: LORazepam INJ 2 MG/ML (ATIVAN) VIAL IVP ONE (07:00)
--- NOTE | 2019-01-14 07:00 | NUR ---
ASSUMED CARE OF PT. PT WANTING TO LEAVE BLOOD PRESSURE CUFF OFF DUE TO IT HURTING HER ARM. TURNED OFF UNTIL I CAN ASK THE
[2019-01-14 08:20] VITALS: BP 154/90
--- NOTE | 2019-01-14 09:41 | NUR ---
PT ARRIVED TO FLOOR AT 0829. PT STATED "I AM NOT STAYING, I AM LEAVING." THIS RN ASKED PT TO CLARIFY. PT STATED "I AM NOT STAYING, I AM GOING TO LEAVE." THIS RN INFORMED DR. TIAN THAT PT WISHES TO LEAVE AMA. PT REFUSED FOR THIS RN TO ASSESS HER. THIS RN EXPLAINED BENEFITS OF STAYING AND RISKS OF LEAVING. PT VERBALIZED UNDERSTANDING. PT SIGNED AMA PAPERWORK AND LEFT THE UNIT.
--- NOTE | 2019-01-14 11:15 | Short Stay Summary ---
History of Present Illness History of Present Illness Reason for visit/HPI 48 yo female came to ER due to awakening with chest pain. Troponin negative, but given high risk, Cardiology recommended cath and plan was for 11 am, however patient declined to stay after being admitted. She was able to state that if she has blocked artery untreated she may and stated she was fine with that. Left AMA. Date of Admission Jan 14, 2019 at 07:47 Date of Discharge Jan 14, 2019 at 09:38 Time Seen by Provider: 09:15 Attending Physician Albert Tian MD Admitting Physician Cuba Ledesma MD Consult Allergies and Home Medications Allergies Coded Allergies: methotrexate (Verified Allergy, Severe, SEIZURE, 08/24/18) nitrofurantoin (Verified Allergy, Mild, 08/24/18) ziprasidone (Verified Allergy, Mild, 08/24/18) aripiprazole (Verified Adverse Reaction, Intermediate, TONGUE SWELLING, 08/24/18) Home Medications Albuterol Sulfate 6.7 Gm Hfa.aer.ad, 1 PUFF IH Q4H PRN for SHORTNESS OF BREATH Prescribed by: NELSON ROBERTSON on 07/21/18 1048 Amlodipine Besylate 5 Mg Tablet, 5 MG PO DAILY Prescribed by: NELSON ROBERTSON on 07/21/18 1048 Aspirin/Acetaminophen/Caffeine 1 Each Tablet, 1 EACH PO DAILY PRN for MIGRAINE, (Reported) Atenolol 50 Mg Tablet, 50 MG PO DAILY Prescribed by: NELSON ROBERTSON on 07/21/18 1048 Hydrocodone/Acetaminophen 1 Each Tablet, 1-2 TAB PO Q4H Prescribed by: ANDRES HOLDEN on 08/27/18 0826 Hydrocortisone 30 Gm Cream.appl, 1 APPLIC RC PRN PRN for ITCHING Prescribed by: NELSON ROBERTSON on 07/21/18 1048 Ondansetron 4 Mg Tab.rapdis, 4 MG PO Q4H PRN for NAUSEA/VOMITING-1ST LINE Prescribed by: NELSON ROBERTSON on 07/21/18 1048 Pantoprazole Sodium 40 Mg Tablet.dr, 40 MG PO DAILY Prescribed by: NELSON ROBERTSON on 07/21/18 1048 Tramadol HCl 50 Mg Tablet, 50 MG PO BID PRN for PAIN-MILD TO MODERATE Prescribed by: NELSON ROBERTSON on 07/21/18 1048 Patient Home Medication List Home Medication List Reviewed: No Past Txjfvoy-Bnddaq-Zuqoic Hx Patient Social History Alcohol Use: Denies Use Recreational Drug Use: Yes Drug of Choice: Hx THC, + IV METH Smoking Status: Current Everyday Smoker Type Used: Cigarettes 2nd Hand Smoke Exposure: No Recent Foreign Travel: No Contact w/other who traveled: No Recent Hopitalizations: No Recent Infectious Disease Expo: No Immunizations Up To Date Tetanus Booster (TDap): More than 5yrs Pediatric: No Date of Influenza Vaccine: Jan 10, 2018 Seasonal Allergies Seasonal Allergies: No Surgeries Yes (LUMPECTOMY) Adenoidectomy, Breast, Cardiac, Gallbladder, 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, Oophorectomy, Tonsillectomy, Vascular Surgery Respiratory Yes (SPONTANEOUS RIGHT PNEUMOTHORAX) Cardiovascular Yes Hypertension Neurological Yes Concussion, Headaches /Migraines, Seizure Disorder, Stroke, Traumatic Brain Injury 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 System Hx 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 Disorders: No 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 Genitourinary Yes Bladder Infection, Kidney Stones Gastrointestinal Yes (HEPATITIS C --NO TREATMENT) Gastroesophageal Reflux, Liver Disease/Jaundice, Chronic Constipation, Pancreatitis, Chronic Diarrhea, Hepatitis, Ulcer Musculoskeletal Yes Degenerate Disk Disease, Arthritis, Fibromyalgia, Rheumatoid Arthritis, Back Injury, Chronic Back Pain, Fractures Endocrine History of Endocrine Disorders: No HEENT History of HEENT Disorders: Yes (EDENTULOUS, READING GLASSES) Loss of Vision: Bilateral Hearing Impairment: Denies Cancer No Psychosocial History of Psychiatric Problem: Yes (HX OF POLYSUBSTANCE ABUSE) Behavioral Health Disorders: Anxiety, Bipolar, Depression Integumentary History of Skin or Integumenta: No Blood Transfusions History of Blood Disorders: No Review of Systems Constitutional: other (unable to obtain, patient agitated and leaving AMA) Physical Exam Vital Signs Vital Signs - First Documented 01/14/19 01/14/19 04:25 04:30 Temp 97.7 Pulse 97 Resp 22 B/P (MAP) 164/111 (128) Pulse Ox 97 O2 Delivery Room Air Capillary Refill : Less Than 3 Seconds Height, Weight, BMI Height: 5'1.00" Weight: 178lbs. 0oz. 80.828101hx; 35.5 BMI Method:Stated General Appearance: Mild Distress Clinical Quality Measures Admission Status Admission Status: Observation AMI/AHF: ASA po Prior to arrival: No Short Stay Diagnosis Discharge Diagnosis-Short Stay Admission Diagnosis: Chest pain Final Discharge Diagnosis: Chest pain- left AMA Conclusion Labs Laboratory Tests 01/14/19 04:40: White Blood Count 7.1, Red Blood Count 4.34L, Hemoglobin 12.8, Hematocrit 38, Mean Corpuscular Volume 87, Mean Corpuscular Hemoglobin 30, Mean Corpuscular Hemoglobin Concent 34, Red Cell Distribution Width 15.2H, Platelet Count 197, Mean Platelet Volume 10.7H, Neutrophils (%) (Auto) 41L, Lymphocytes (%) (Auto) 46H, Monocytes (%) (Auto) 10, Eosinophils (%) (Auto) 2, Basophils (%) (Auto) 0, Neutrophils # (Auto) 2.9, Lymphocytes # (Auto) 3.3, Monocytes # (Auto) 0.7, Eosinophils # (Auto) 0.2, Basophils # (Auto) 0.0, Prothrombin Time 13.6, INR Comment 1.0, Activated Partial Thromboplast Time 45H, Sodium Level 142, Potassium Level 3.3L, Chloride Level 109H, Carbon Dioxide Level 23, Anion Gap 10, Blood Urea Nitrogen 15, Creatinine 0.84, Estimat Glomerular Filtration Rate > 60, BUN/Creatinine Ratio 18, Glucose Level 109H, Calcium Level 8.5, Corrected Calcium 8.7, Magnesium Level 2.0, Total Bilirubin 0.4, Aspartate Amino Transf (AST/SGOT) 48H, Alanine Aminotransferase (ALT/SGPT) 65H, Alkaline Phosphatase 106, Myoglobin 34.9, Troponin I < 0.028, B-Type Natriuretic Peptide < 10.0, Total Protein 7.1, Albumin 3.8 Conclusion/Plan See discharge diagnosis ALBERT TIAN MD Jan 14, 2019 11:15
[2019-01-14] MEDS ORDERED: ALPR0.5T7 PO (14:55)
[2019-01-14] MEDS ORDERED: OMEP40CA36 PO (14:55)
[2019-01-14] MEDS ORDERED: AMLO5TAB9 PO (14:55)
[2019-01-14] MEDS ORDERED: RT-ALBUINH INH (14:55)
[2019-01-14] MEDS ORDERED: TRAM50TA2 PO (14:55)
[2019-01-14] MEDS ORDERED: ATEN50TA PO (14:55)
[2019-01-14] MEDS ORDERED: ASPI-789 PO (14:59)
[2019-01-14] MEDS ORDERED: NALO4SPR NS (15:04)
== END 2019-01-14 09:41 | disposition left against medical advice (07) ==
LOC: EDUNIT# 04:24 → ER 04:26 → ICU 07:47 → UNDOADMOB 07:47 → ICU 08:29 → UNDODISOB 09:38
PROVIDERS: ADMIT Family Medicine; ATTEND Family Medicine
DX: R07.9 Chest pain, unspecified (principal); M06.9 Rheumatoid arthritis, unspecified; I10 Essential (primary) hypertension; J44.9 Chronic obstructive pulmonary disease, unspecified; G43.909 Migraine, unspecified, not intractable, without status migrainosus; K59.00 Constipation, unspecified; M19.90 Unspecified osteoarthritis, unspecified site; M54.9 Dorsalgia, unspecified; G89.29 Other chronic pain; H54.3 Unqualified visual loss, both eyes; K21.9 Gastro-esophageal reflux disease without esophagitis; F17.210 Nicotine dependence, cigarettes, uncomplicated; F31.9 Bipolar disorder, unspecified; F41.9 Anxiety disorder, unspecified; Z87.440 Personal history of urinary (tract) infections; Z88.8 Allergy status to other drugs, medicaments and biological substances; Z79.891 Long term (current) use of opiate analgesic; Z79.82 Long term (current) use of aspirin; Z90.89 Acquired absence of other organs; Z90.710 Acquired absence of both cervix and uterus; Z85.3 Personal history of malignant neoplasm of breast; Z86.73 Personal history of transient ischemic attack (TIA), and cerebral infarction without residual deficits; Z88.1 Allergy status to other antibiotic agents
CPT/HCPCS: 36415; 71045; 80053; 83735; 83874; 83880; 84484; 85025; 85610; 85730; 93005; 93041; 93306; 96361; 96374; G0378

== ENCOUNTER 2019-01-14 12:54 | Observation (INO) | payer MEDICAID ==
[~2019-01-14] VITALS: Ht 154.9 cm; Wt 82.6 kg
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
[2019-01-14] MEDS ORDERED: LORazepam INJ 2 MG/ML (ATIVAN) VIAL IVP PRN (13:15)
[2019-01-14] MEDS ORDERED: NITROGLYCERIN 0.4 MG SL TABS BTL 25'S SL PRN (13:15)
[2019-01-14 13:22] LABS: BASOPHILS % (AUTO) 1 % (0-10); EOSINOPHILS # (AUTO) 0.1 10^3/uL (0.0-0.3); EOSINOPHILS % (AUTO) 2 % (0-10); HEMATOCRIT 39 % (35-52); HEMOGLOBIN 12.8 G/DL (11.5-16.0); LYMPHOCYTES # (AUTO) 2.9 X 10^3 (1.0-4.0); LYMPHOCYTES % (AUTO) 45 % (12-44); MEAN CORPUSCULAR HEMOGLOBIN 29 PG (25-34); MEAN CORPUSCULAR HGB CONC 33 G/DL (32-36); MEAN CORPUSCULAR VOLUME 87 FL (80-99); MEAN PLATELET VOLUME 10.3 FL (7.4-10.4); MONOCYTES # (AUTO) 0.7 X 10^3 (0.0-1.0); MONOCYTES % (AUTO) 10 % (0-12); NEUTROPHILS # (AUTO) 2.8 X 10^3 (1.8-7.8); NEUTROPHILS % (AUTO) 43 % (42-75); PLATELET COUNT 193 10^3/uL (130-400); RED CELL DISTRIBUTION WIDTH 15.2 % (10.0-14.5); WHITE BLOOD COUNT 6.5 10^3/uL (4.3-11.0)
[2019-01-14 13:43] LABS: PROTHROMBIN TIME PATIENT 13.5 SEC (12.2-14.7)
[2019-01-14 13:47] LABS: ALANINE AMINOTRANSFERASE 70 U/L (0-55); ALBUMIN 3.9 GM/DL (3.2-4.5); ALKALINE PHOSPHATASE 103 U/L (40-136); BILIRUBIN,TOTAL 0.5 MG/DL (0.1-1.0); BUN/CREATININE RATIO 14; CALCIUM 8.3 MG/DL (8.5-10.1); CARBON DIOXIDE 27 MMOL/L (21-32); CHLORIDE 108 MMOL/L (98-107); CREATININE SERUM 1.09 MG/DL (0.60-1.30); GFR ESTIMATED 53; GLUCOSE 110 MG/DL (70-105); MAGNESIUM 2.1 MG/DL (1.6-2.4); POTASSIUM 3.7 MMOL/L (3.6-5.0); SODIUM 141 MMOL/L (135-145)
--- NOTE | 2019-01-14 14:09 | Diagnostic Imaging Report ---
Clinical indication: Patient with chest pain. Patient admitted last night, suppose to have heart catheter this morning. Exam: Portable chest x-ray upright view. Comparisons: Chest x-ray dated 01/14/2019. Findings: Oxygen tubing is seen overlying the left chest. Lungs/pleura: Lungs are clear. There is no pneumothorax. There is no pleural effusion. Mediastinum: Unremarkable. Pulmonary vasculature: Unremarkable. Heart: Unremarkable. Bones/extrathoracic soft tissue: Unremarkable. Impression: There is no radiographic evidence of acute cardiopulmonary process. Dictated by: Dictated on workstation # [id number]
[2019-01-14 14:15] LABS: AMPHETAMINE SCREEN, URINE POSITIVE (NEGATIVE); BARBITURATE SCREEN URINE NEGATIVE (NEGATIVE); BENZODIAZEPINES SCREEN URINE POSITIVE (NEGATIVE); CANNABINOID SCREEN, URINE POSITIVE (NEGATIVE); COCAINE SCREEN URINE NEGATIVE (NEGATIVE); METHADONE STAT NEGATIVE (NEGATIVE); METHAMPHETAMINE SCREEN URINE S POSITIVE (NEGATIVE); OPIATE SCREEN URINE NEGATIVE (NEGATIVE); OXYCODONE STAT NEGATIVE (NEGATIVE); PROPOXYPHENE STAT NEGATIVE (NEGATIVE); TRICYCLIC ANTIDEPRESSANTS SCRE NEGATIVE (NEGATIVE)
--- NOTE | 2019-01-14 14:15 | Consultation-Cardiology ---
HPI-Cardiology Cardiology Consultation: Date of Consultation 01/14/19 Date of Admission Attending Physician Elda Gilliland MD Admitting Physician Cuba Ledesma MD Consulting Physician Mauricio SCOTT MD HPI: Time Seen by a Provider: 14:00 Chief Complaint: Chest pain This is a 48-year-old old lady who presented yesterday to rule out ACS. We had planned to do coronary angiography today however the patient signed out AMA and left. She presented again to the ER with chest pain 08/19. Substernal no significant radiation. Denied any shortness of breath, palpitation, syncope or near syncope. She has significant social issues at home. Active smoking. Active drug abuse as well. Review of Systems-Cardiology Review of Systems Constitutional: As described under HPI; No As described under HPI, No no symptoms reported, No chills, No fever, No lightheadedness Eyes: No As described under HPI, No no symptoms reported, No blindness, No blurred vision, No contact lenses, No drainage, No decreased acuity, No foreign body sensation, No pain, No vision change Ears/Nose/Throat: No As described under HPI, No no symptoms reported, No chron ic hearing loss, No ear discharge, No ear pain, No nasal drainage, No ulcerations Respiratory: No no symptoms reported; As described under HPI; No As described under HPI, No cough, No orthopnea, No shortness of breath, No SOB with excertion Cardiovascular: No no symptoms reported; As described under HPI; No As described under HPI; chest pain; No edema, No irregular heart rate, No lightheadedness, No palpitations Gastrointestinal: No no symptoms reported, No As described under HPI, No abdomen distended, No abdominal pain, No blood streaked bowels, No constipation, No diarrhea, No nausea, No vomiting, No stool coloration changes Genitourinary: No As described under HPI, No burning, No dysuria, No discharge, No frequency, No flank pain, No hematuria, No urgency : Yes : No Skin: No rash, No skin related problems, No ulcerations Psychiatric/Neurological: No anxiety, No depression, No seizure, No focal weakness, No syncope Hematologic: No bleeding abnormalities RGY-[id number]-Gkuocs Hx Patient Social History Alcohol Use: Denies Use Recreational Drug Use: No (THC) Drug of Choice: Hx THC, + IV METH Smoking Status: Current Everyday Smoker Type Used: Cigarettes 2nd Hand Smoke Exposure: No Recent Foreign Travel: No Recent Infectious Disease Expo: No Hospitalization with Isolation: Denies Immunizations Up To Date Tetanus Booster (TDap): More than 5yrs Date of Influenza Vaccine: Jan 10, 2018 Past Medical History PMH As described under Assessment. Allergies and Home Medications Allergies Coded Allergies: methotrexate (Verified Allergy, Severe, SEIZURE, 08/24/18) nitrofurantoin (Verified Allergy, Mild, 08/24/18) ziprasidone (Verified Allergy, Mild, 08/24/18) aripiprazole (Verified Adverse Reaction, Intermediate, TONGUE SWELLING, 08/24/18) Home Medications Albuterol Sulfate 6.7 Gm Hfa.aer.ad, 2 PUFF INH Q4H PRN for SHORTNESS OF BREATH, (Reported) Alprazolam 0.5 Mg Tablet, 0.5 MG PO TID PRN for ANXIETY, (Reported) Amlodipine Besylate 5 Mg Tablet, 5 MG PO DAILY, (Reported) Aspirin/Acetaminophen/Caffeine 1 Each Tablet, 1-2 TAB PO BID PRN for Headache, (Reported) Atenolol 50 Mg Tablet, 50 MG PO DAILY, (Reported) Naloxone HCl 4 Mg [place], 1 SPRAY NS UD PRN for OVERDOSE, (Reported) Omeprazole 40 Mg Capsule.dr, 40 MG PO DAILY, (Reported) Tramadol HCl 50 Mg Tablet, 50 MG PO TID PRN for PAIN-MODERATE, (Reported) Patient Home Medication List Home Medication List Reviewed: Yes Physical Exam-Cardiology Physical Exam Vital Signs/I&O Capillary Refill : Less Than 3 Seconds Constitutional: appears stated age; No apparent distress; well-developed, well- nourished HEENT: PERRL; No discharge; hearing is well preserved, oral hygience is good; No ulceration, No xanthelasmas are seen Neck: No carotid bruit; carotid pulses are 2 + bilaterally Respiratory: chest is bilaterally symmetric, lungs clear to auscultation Cardiovascular: regular rate-rhythm; No irregularly irregular, No extra beats, No parasternal heave is noted, No JVD, No edema, No bradycardia, No tachycardia, No point of maximal impulse, No cardiac thrills are palpable; S1 and S2; No gallop/S3, No gallop/S4, No diastolic murmur, No systolic murmur, No friction rub, No click, No other Gastrointestinal: soft, audible bowel sounds; No spleenomegaly Rectal: deferred Extremities: normal range of motion, non-tender, normal inspection; No clubbing, No cyanosis, No significant edema Neurologic/Psychiatric: no motor/sensory deficits, alert, normal mood/affect, oriented x 3, power is 5/5 both on sides Skin: normal color; No rash, No ulcerations Data Review Labs Laboratory Tests 01/14/19 13:10: White Blood Count 6.5, Red Blood Count 4.47, Hemoglobin 12.8, Hematocrit 39, Mean Corpuscular Volume 87, Mean Corpuscular Hemoglobin 29, Mean Corpuscular Hemoglobin Concent 33, Red Cell Distribution Width 15.2H, Platelet Count 193, Mean Platelet Volume 10.3, Neutrophils (%) (Auto) 43, Lymphocytes (%) (Auto) 45H , Monocytes (%) (Auto) 10, Eosinophils (%) (Auto) 2, Basophils (%) (Auto) 1, Neutrophils # (Auto) 2.8, Lymphocytes # (Auto) 2.9, Monocytes # (Auto) 0.7, Eosinophils # (Auto) 0.1, Basophils # (Auto) 0.0, Prothrombin Time 13.5, INR Comment 1.0, Activated Partial Thromboplast Time 32, Sodium Level 141, Potassium Level 3.7, Chloride Level 108H, Carbon Dioxide Level 27, Anion Gap 6, Blood Urea Nitrogen 15, Creatinine 1.09, Estimat Glomerular Filtration Rate 53, BUN/Creatinine Ratio 14, Glucose Level 110H, Calcium Level 8.3L, Corrected Calcium 8.4L, Magnesium Level 2.1, Total Bilirubin 0.5, Aspartate Amino Transf (AST/SGOT) 50H, Alanine Aminotransferase (ALT/SGPT) 70H, Alkaline Phosphatase 103, Myoglobin 37.9, Troponin I < 0.028, Total Protein 7.0, Albumin 3.9 01/14/19 13:55: Urine Opiates Screen NEGATIVE, Urine Oxycodone Screen NEGATIVE, Urine Methadone Screen NEGATIVE, Urine Propoxyphene Screen NEGATIVE, Urine Barbiturates Screen NEGATIVE, Ur Tricyclic Antidepressants Screen NEGATIVE, Urine Phencyclidine Screen NEGATIVE, Urine Amphetamines Screen POSITIVEH, Urine Methamphetamines Screen POSITIVEH, Urine Benzodiazepines Screen POSITIVEH, Urine Cocaine Screen NEGATIVE, Urine Cannabinoids Screen POSITIVEH ECG Impression ECG Initial ECG Rhythm: Normal Sinus A/P-Cardiology Assessment/Admission Diagnosis Chest pain, Drug abuse, Active smoking, Elevated LFTs Plan Chest pain, serial cardiac enzymes are negative. Coronary angiography will be recommended. However when I was speaking to the patient she was still under the influence of drugs therefore I did not feel that it was the right time to take informed consent. Therefore I spoke to the nurse and requested that we will take informed consent in the morning of 01/15/2019. Drug abuse, I requested the nurse to discuss with Dr. Gilliland about further plan since the patient is positive for methamphetamine. Active smoking, smoking cessation was strongly recommended. Elevated LFTs, complete workup is recommended including rule out viral hepatitis. Social/psychiatric issues, we'll defer to Dr. Gilliland. Thank you for your consultation. Please call me if you have any questions. Virginia Scott MD, FACP, FACC, FSCAI, FHRS, CCDS Interventional Cardiology Cardiac Electrophysiology Vascular Medicine and Endovascular Interventions Clinical Quality Measures AMI/AHF: ASA po Prior to arrival: Mauricio Diaz MD Jan 14, 2019 14:15
--- NOTE | 2019-01-14 14:25 | NUR ---
Attempted to call report to 5th floor nurse.
[2019-01-14 14:46] VITALS: BP 168/101
[2019-01-14 14:50] VITALS: BP 168/101
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
[2019-01-14] MEDS ORDERED: AMLO5TAB9 PO (14:55)
[2019-01-14] MEDS ORDERED: OMEP40CA36 PO (14:55)
[2019-01-14] MEDS ORDERED: ATEN50TA PO (14:55)
[2019-01-14] MEDS ORDERED: ALPR0.5T7 PO (14:55)
[2019-01-14] MEDS ORDERED: RT-ALBUINH INH (14:55)
[2019-01-14] MEDS ORDERED: TRAM50TA2 PO (14:55)
[2019-01-14] MEDS ORDERED: ASPI-789 PO (14:59)
[2019-01-14] MEDS ORDERED: LACTATED RINGERS 1,000 ML IV SCH (15:00)
[2019-01-14] MEDS ORDERED: CATHETER FLUSH 10 ML SYR IV PRN (15:00)
[2019-01-14] MEDS ORDERED: NALO4SPR NS (15:04)
--- NOTE | 2019-01-14 15:05 | NUR ---
TRIED TO GO OVER MEDICATIONS WITH THE PATIENT. SHE DID AGREE WITH SOME OF THE MEDICATIONS I ASKED HER ABOUT HOWEVER WAS CONSTANTLY FALLING ASLEEP. I UPDATED THE MED REC WITH WHAT HAS BEEN FILLED RECENTLY ACCORDING TO THE EXT MED HX.I DID CALL [facility] TO VERIFY THE THREE SCRIPTS FILLED 01-13-19 WERE PICKED UP. I LEFT THE EXCEDRIN OTC PRN.
[2019-01-14 16:09] VITALS: BP 124/72
[2019-01-14] MEDS ORDERED: RT-ALBUTEROL SULF 2.5 MG/3 ML PRE-MIX VIAL INH PRN (16:30)
[2019-01-14 16:34] VITALS: BP 124/72
[2019-01-14 17:00] VITALS: BP 139/78
--- NOTE | 2019-01-14 17:21 | NUR ---
THIS RN WENT TO PT ROOM TO ANSWER CALL LIGHT. PT QUESTIONED WHAT WAS GOING ON AND IF SHE HAD SURGERY. THIS RN INFORMED THE PT THAT SHE WAS ADMITTED TO THE ICU AFTER BEING SEEN IN THE ER AND THAT SHE DID NOT HAVE ANY PROCEDURES. PT STATED "WHY HAVEN'T THEY DONE IT?" THIS RN INFORMED PT THAT DUE TO THE POSITIVE DRUG TEST IN THE ER AND HER LETHARGY DR. CALDWELL WAS NOT ABLE TO DO THE PROCEDURE TODAY AND IT WAS RESCHEDULED FOR TOMORROW MORNING. PT STATED "WELL THEN I'M LEAVING, I'VE WASTED MY WHOLE DAY HERE." THIS RN STATED TO PT THAT IF SHE LEAVES AMA AGAIN THERE IS A CHANCE OF HAVING A HEART ATTACK AND . THIS RN ALSO EDUCATED PT ON BENEFITS OF STAYING, INCLUDING IMPROVEMENT OF HEALTH. PT STATED "NO, HAND ME MY THINGS, I AM LEAVING." THIS RN GAVE PT BELONGINGS AND CONTACTED DR. TIAN AND DR. CALDWELL TO INFORM THAT PT WOULD BE LEAVING AMA. THIS RN AGAIN EDUCATED PT ON IMPORTANCE OF STAYING DUE TO COMING INTO THE ER TWO TIMES TODAY WITH COMPLAINTS OF CHEST PAIN. PT STATED "I ONLY CAME BACK BECAUSE I THOUGHT IT WAS THE RIGHT THING TO DO, I'M SUPPOSE TO BE AT THE SAFE HOUSE NOW. I DON'T HAVE TIME FOR THIS." THIS RN EDUCATED PT THAT THE UNIT FLOORS WERE LOCKED AND THAT NO ONE COULD ENTER THE UNIT WITHOUT STAFF LETTING THEM IN AND THAT PT WOULD BE SAFE IN THE HOSPITAL. PT STATED "NO, I AM LEAVING." THIS RN REQUESTED PT SIGN AMA PAPER. AMA PAPER WAS SIGNED BY PT. PT THEN LEFT THE UNIT.
[2019-01-14] MEDS ORDERED: ENOXAPARIN 40 MG/0.4 ML (LOVENOX) SYR SQ SCH (20:00)
[2019-01-15] MEDS ORDERED: PANTOPRAZOLE 40 MG (PROTONIX) TAB PO SCH (07:00)
[2019-01-15] MEDS ORDERED: amLODIPine 5 MG (NORVASC) TAB PO SCH (09:00)
[2019-01-15] MEDS ORDERED: ASPIRIN 81 MG CHEW (CHILDREN'S ASA) PO SCH (09:00)
[2019-01-15] MEDS ORDERED: NON-FORMULARY MEDICATION 1 EA EA (Amlodipine Besylate 5 MG) PO SCH (09:00)
[2019-01-15] MEDS ORDERED: NON-FORMULARY MEDICATION 1 EA EA (Omeprazole 40 MG) PO SCH (09:00)
[2019-01-15] MEDS ORDERED: ATENOLOL 50 MG (TENORMIN) TAB PO SCH (09:00)
--- NOTE | 2019-01-15 20:52 | Discharge Summary ---
Discharge Summary Hospital Course Problems/Diagnosis: (1) Chest pain Assessment & Plan: Troponin negative, no ST elevation. Cardiology consulted, plan for cath due to risk factors. Urine positive for meth after patient left AMA in the morning and came back later, was not oriented enough to consent for cath, and when she was told it was deferred to next morning, she left AMA again. Qualifiers: Qualified Codes: R07.9 - Chest pain, unspecified (2) Methamphetamine abuse Assessment & Plan: Positive on admission. Hospital Course Date of Admission: Jan 14, 2019 at 14:00 Admission Diagnosis : Family Physician/Provider: Cuba Ledesma MD Date of Discharge: 01/15/19 Discharge Diagnosis: [ ] Hospital Course: [ ] Labs and Pending Lab Test: Home Meds Active Reported Narcan (Naloxone HCl) 4 Mg [place] 1 [place] NS UD PRN Excedrin Migraine Caplet (Aspirin/Acetaminophen/Caffeine) 1 Each Tablet 1-2 Tab PO BID PRN Proventil Hfa (Albuterol Sulfate) 6.7 Gm Hfa.aer.ad 2 Puff INH Q4H PRN Omeprazole 40 Mg Capsule.dr 40 Mg PO DAILY Amlodipine Besylate 5 Mg Tablet 5 Mg PO DAILY Atenolol 50 Mg Tablet 50 Mg PO DAILY Tramadol HCl 50 Mg Tablet 50 Mg PO TID PRN Alprazolam 0.5 Mg Tablet 0.5 Mg PO TID PRN Assessment/Pt DC Instructions Left AMA twice in one day. Discharge Physical Examination Allergies: Coded Allergies: methotrexate (Verified Allergy, Severe, SEIZURE, 08/24/18) nitrofurantoin (Verified Allergy, Mild, 08/24/18) ziprasidone (Verified Allergy, Mild, 08/24/18) aripiprazole (Verified Adverse Reaction, Intermediate, TONGUE SWELLING, 08/24/18) Discharge Summary Date of Admission Jan 14, 2019 at 14:00 Date of Discharge Jan 14, 2019 at 17:10 Clinical Quality Measures AMI/AHF: ASA po Prior to arrival: No DVT/VTE Risk/Contraindication: Risk Factor Score Per Nursin RFS Level Per Nursing on Admit: 2=Moderate ALBERT TIAN MD Jan 15, 2019 20:52
== END 2019-01-14 17:21 | disposition left against medical advice (07) ==
LOC: EDUNIT# 12:54 → ER 12:55 → ICU 14:00 → UNDOADMOB 14:00 → ICU 14:30 → UNDODISOB 17:10
PROVIDERS: ADMIT Family Medicine; ATTEND Family Medicine
DX: R07.9 Chest pain, unspecified (principal); I10 Essential (primary) hypertension; I82.409 Acute embolism and thrombosis of unspecified deep veins of unspecified lower extremity; J44.9 Chronic obstructive pulmonary disease, unspecified; K21.9 Gastro-esophageal reflux disease without esophagitis; B18.2 Chronic viral hepatitis C; K59.00 Constipation, unspecified; G89.29 Other chronic pain; G43.909 Migraine, unspecified, not intractable, without status migrainosus; M54.9 Dorsalgia, unspecified; M06.9 Rheumatoid arthritis, unspecified; M19.90 Unspecified osteoarthritis, unspecified site; H54.3 Unqualified visual loss, both eyes; F17.210 Nicotine dependence, cigarettes, uncomplicated; F31.9 Bipolar disorder, unspecified; F41.9 Anxiety disorder, unspecified; F15.20 Other stimulant dependence, uncomplicated; Z88.1 Allergy status to other antibiotic agents; Z79.82 Long term (current) use of aspirin; Z88.8 Allergy status to other drugs, medicaments and biological substances; Z79.899 Other long term (current) drug therapy; Z90.710 Acquired absence of both cervix and uterus; Z86.73 Personal history of transient ischemic attack (TIA), and cerebral infarction without residual deficits; Z79.891 Long term (current) use of opiate analgesic
CPT/HCPCS: 36415; 71045; 80053; 80306; 83735; 83874; 84484; 85025; 85610; 85730; 93005; 93041; 96374

== ENCOUNTER 2019-01-22 12:59 | Outpatient (CLI) | payer MEDICAID ==
[~2019-01-22 12:59] MED LIST changes: +ALPR0.5T7 PO; +ASPI-789 PO; +NALO4SPR NS; +RT-ALBUINH INH
[2019-01-22 13:00] VITALS: BP 138/90
[2019-01-22 14:00] LABS: ALANINE AMINOTRANSFERASE 62 U/L (0-55); ALBUMIN 3.8 GM/DL (3.2-4.5); ALKALINE PHOSPHATASE 101 U/L (40-136); BILIRUBIN,TOTAL 0.4 MG/DL (0.1-1.0); BUN/CREATININE RATIO 14; CALCIUM 8.7 MG/DL (8.5-10.1); CARBON DIOXIDE 23 MMOL/L (21-32); CHLORIDE 108 MMOL/L (98-107); CREATININE SERUM 0.83 MG/DL (0.60-1.30); GFR ESTIMATED > 60; GLUCOSE 110 MG/DL (70-105); SODIUM 139 MMOL/L (135-145); TOTAL PROTEIN 7.5 GM/DL (6.4-8.2)
== END 2019-01-22 13:30 | disposition home or self-care (01) ==
LOC: SDC 12:59
PROVIDERS: ATTEND Pediatrics
DX: B18.2 Chronic viral hepatitis C (principal); I10 Essential (primary) hypertension; R73.9 Hyperglycemia, unspecified
CPT/HCPCS: 36415; 36591; 80053; 83036; 87522

== ENCOUNTER → 2019-02-15 | Outpatient (CLI) | payer MEDICAID ==
[2019-02-15 12:05] VITALS: BP 146/98
== END ==
LOC: SDC 11:45
PROVIDERS: ATTEND Internal Medicine Rheumatology
DX: M06.041 Rheumatoid arthritis without rheumatoid factor, right hand (principal); M06.042 Rheumatoid arthritis without rheumatoid factor, left hand
CPT/HCPCS: 36415; 36591; 85652; 86141

== ENCOUNTER 2019-03-17 09:05 | Emergency (ER) | payer MEDICAID ==
[~2019-03-17] VITALS: Ht 162 cm; Wt 81.8 kg
[2019-03-17] MEDS ORDERED: ASPIRIN 81 MG CHEW (CHILDREN'S ASA) PO ONE (09:15)
[2019-03-17] MEDS ORDERED: LACTATED RINGERS 1,000 ML IV ONE (09:19)
[2019-03-17] MEDS ORDERED: LORazepam INJ 2 MG/ML (ATIVAN) VIAL IVP ONE (09:30)
[2019-03-17 09:31] LABS: BASOPHILS % (AUTO) 0 % (0-10); EOSINOPHILS # (AUTO) 0.1 10^3/uL (0.0-0.3); EOSINOPHILS % (AUTO) 2 % (0-10); HEMATOCRIT 41 % (35-52); HEMOGLOBIN 13.2 G/DL (11.5-16.0); LYMPHOCYTES % (AUTO) 45 % (12-44); MEAN CORPUSCULAR HEMOGLOBIN 28 PG (25-34); MEAN CORPUSCULAR HGB CONC 32 G/DL (32-36); MEAN CORPUSCULAR VOLUME 88 FL (80-99); MEAN PLATELET VOLUME 10.2 FL (7.4-10.4); MONOCYTES # (AUTO) 0.8 X 10^3 (0.0-1.0); MONOCYTES % (AUTO) 12 % (0-12); NEUTROPHILS # (AUTO) 2.8 X 10^3 (1.8-7.8); NEUTROPHILS % (AUTO) 41 % (42-75); PLATELET COUNT 235 10^3/uL (130-400); RED CELL DISTRIBUTION WIDTH 14.9 % (10.0-14.5); WHITE BLOOD COUNT 6.7 10^3/uL (4.3-11.0)
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
[2019-03-17 09:47] LABS: INR 0.9 (0.8-1.4); PROTHROMBIN TIME PATIENT 12.9 SEC (12.2-14.7)
[2019-03-17 09:54] LABS: ALANINE AMINOTRANSFERASE 28 U/L (0-55); ALBUMIN 3.8 GM/DL (3.2-4.5); ALKALINE PHOSPHATASE 134 U/L (40-136); BILIRUBIN,TOTAL 0.3 MG/DL (0.1-1.0); BUN/CREATININE RATIO 11; CARBON DIOXIDE 22 MMOL/L (21-32); CHLORIDE 107 MMOL/L (98-107); CREATININE SERUM 0.74 MG/DL (0.60-1.30); GFR ESTIMATED > 60; GLUCOSE 135 MG/DL (70-105); MAGNESIUM 1.7 MG/DL (1.6-2.4); POTASSIUM 3.6 MMOL/L (3.6-5.0); SODIUM 139 MMOL/L (135-145); TOTAL PROTEIN 7.4 GM/DL (6.4-8.2)
--- NOTE | 2019-03-17 10:05 | Diagnostic Imaging Report ---
EXAMINATION: Portable erect AP chest at 941h. INDICATION: Chest pain The heart size is within normal limits and stable when compared to 01/14/2019. The lungs are clear. There is no sign of failure, pneumonia or pleural effusion to indicate an acute abnormality. The mediastinum is not widened. The osseous structures are intact. The left-sided Port-A-Cath seen previously is again evident and stable in position. The external cardiac monitoring electrodes seen on the prior study are also again visualized. There is a new 1.5 mm linear radiopaque density overlying the right midlung. I suspect that this is extraneous to the patient. If further study is desired, then a lateral view of the chest would be recommended. IMPRESSION: 1. There is no evidence for an acute cardiopulmonary abnormality. 2. The new small linear radiopaque density overlying the right midlung is most likely extraneous to the patient. Recommendations as above. Dictated by: Dictated on workstation # [id number]
--- NOTE | 2019-03-17 10:17 | NUR ---
IN TO TALK TO PT AT THIS TIME.
[2019-03-17] MEDS ORDERED: meTOproloL SUCCINATE 50 MG (TOPROL XL) TAB PO SCH (10:30)
[2019-03-17 10:38] VITALS: BP 167/89
== END 2019-03-17 10:38 | disposition home or self-care (01) ==
LOC: EDUNIT# 09:05 → ER 09:06
DX: S16.1XXA Strain of muscle, fascia and tendon at neck level, initial encounter (principal); R07.9 Chest pain, unspecified; I10 Essential (primary) hypertension; B19.20 Unspecified viral hepatitis C without hepatic coma; J44.9 Chronic obstructive pulmonary disease, unspecified; G43.909 Migraine, unspecified, not intractable, without status migrainosus; G40.909 Epilepsy, unspecified, not intractable, without status epilepticus; K21.9 Gastro-esophageal reflux disease without esophagitis; M79.7 Fibromyalgia; M06.9 Rheumatoid arthritis, unspecified; F41.9 Anxiety disorder, unspecified; F31.9 Bipolar disorder, unspecified; F17.210 Nicotine dependence, cigarettes, uncomplicated; Z87.442 Personal history of urinary calculi; Z86.73 Personal history of transient ischemic attack (TIA), and cerebral infarction without residual deficits; Z90.89 Acquired absence of other organs; Z90.710 Acquired absence of both cervix and uterus; Z95.9 Presence of cardiac and vascular implant and graft, unspecified; Z88.8 Allergy status to other drugs, medicaments and biological substances; Z79.82 Long term (current) use of aspirin; Z91.14 Patient's other noncompliance with medication regimen; X58.XXXA Exposure to other specified factors, initial encounter
CPT/HCPCS: 36415; 71045; 80053; 83735; 83874; 84484; 85025; 85610; 85730; 93005; 93041

== ENCOUNTER 2019-03-19 14:56 | Outpatient (CLI) | payer MEDICAID ==
[2019-03-19 15:51] LABS: BASOPHILS % (AUTO) 1 % (0-10); EOSINOPHILS # (AUTO) 0.1 10^3/uL (0.0-0.3); EOSINOPHILS % (AUTO) 2 % (0-10); HEMATOCRIT 38 % (35-52); LYMPHOCYTES # (AUTO) 2.9 X 10^3 (1.0-4.0); LYMPHOCYTES % (AUTO) 47 % (12-44); MEAN CORPUSCULAR HEMOGLOBIN 28 PG (25-34); MEAN CORPUSCULAR HGB CONC 32 G/DL (32-36); MEAN CORPUSCULAR VOLUME 89 FL (80-99); MEAN PLATELET VOLUME 10.5 FL (7.4-10.4); MONOCYTES # (AUTO) 0.5 X 10^3 (0.0-1.0); MONOCYTES % (AUTO) 8 % (0-12); NEUTROPHILS # (AUTO) 2.7 X 10^3 (1.8-7.8); NEUTROPHILS % (AUTO) 43 % (42-75); PLATELET COUNT 189 10^3/uL (130-400); WHITE BLOOD COUNT 6.2 10^3/uL (4.3-11.0)
[2019-03-19 16:16] LABS: ALANINE AMINOTRANSFERASE 21 U/L (0-55); ALBUMIN 3.7 GM/DL (3.2-4.5); ALKALINE PHOSPHATASE 132 U/L (40-136); BILIRUBIN,TOTAL 0.2 MG/DL (0.1-1.0); BUN/CREATININE RATIO 9; CALCIUM 8.3 MG/DL (8.5-10.1); CARBON DIOXIDE 20 MMOL/L (21-32); CHLORIDE 108 MMOL/L (98-107); GFR ESTIMATED > 60; GLUCOSE 193 MG/DL (70-105); POTASSIUM 3.2 MMOL/L (3.6-5.0); SODIUM 141 MMOL/L (135-145); TOTAL PROTEIN 6.9 GM/DL (6.4-8.2)
== END 2019-03-19 15:25 | disposition home or self-care (01) ==
LOC: SDC 14:56
PROVIDERS: ATTEND Pediatrics
DX: B18.2 Chronic viral hepatitis C (principal)
CPT/HCPCS: 36415; 80053; 85025; 87522

== ENCOUNTER 2019-03-19 15:57 | Outpatient (RCR) | payer MEDICAID ==
[~2019-03-19 15:57] MED LIST changes: +OMEP40CA27 PO; -OMEP40CA36 PO
== END 2019-06-17 | disposition home or self-care (01) ==
LOC: SDC 15:57
PROVIDERS: ATTEND Nurse Practitioner Family
DX: Z45.2 Encounter for adjustment and management of vascular access device (principal)

== ENCOUNTER → 2019-04-22 | Outpatient (CLI) | payer MEDICAID ==
[~2019-04-22] VITALS: Wt 81.8 kg
[~2019-04-22] MED LIST changes: -OMEP40CA27 PO; +OMEP40CA36 PO
[2019-04-22 11:56] LABS: BASOPHILS % (AUTO) 1 % (0-10); EOSINOPHILS # (AUTO) 0.2 10^3/uL (0.0-0.3); EOSINOPHILS % (AUTO) 3 % (0-10); HEMATOCRIT 40 % (35-52); HEMOGLOBIN 13.1 G/DL (11.5-16.0); LYMPHOCYTES # (AUTO) 3.5 X 10^3 (1.0-4.0); LYMPHOCYTES % (AUTO) 47 % (12-44); MEAN CORPUSCULAR HEMOGLOBIN 29 PG (25-34); MEAN CORPUSCULAR HGB CONC 33 G/DL (32-36); MEAN CORPUSCULAR VOLUME 87 FL (80-99); MEAN PLATELET VOLUME 10.1 FL (7.4-10.4); MONOCYTES # (AUTO) 0.6 X 10^3 (0.0-1.0); MONOCYTES % (AUTO) 8 % (0-12); NEUTROPHILS # (AUTO) 3.1 X 10^3 (1.8-7.8); NEUTROPHILS % (AUTO) 42 % (42-75); PLATELET COUNT 280 10^3/uL (130-400); RED CELL DISTRIBUTION WIDTH 15.4 % (10.0-14.5); WHITE BLOOD COUNT 7.5 10^3/uL (4.3-11.0)
[2019-04-22 12:15] LABS: ALANINE AMINOTRANSFERASE 22 U/L (0-55); ALBUMIN 3.9 GM/DL (3.2-4.5); ALKALINE PHOSPHATASE 137 U/L (40-136); BILIRUBIN,TOTAL 0.4 MG/DL (0.1-1.0); BUN/CREATININE RATIO 16; CARBON DIOXIDE 27 MMOL/L (21-32); CHLORIDE 104 MMOL/L (98-107); CREATININE SERUM 0.77 MG/DL (0.60-1.30); GFR ESTIMATED > 60; GLUCOSE 98 MG/DL (70-105); SODIUM 141 MMOL/L (135-145); TOTAL PROTEIN 7.5 GM/DL (6.4-8.2)
[2019-04-22 12:22] LABS: BAND NEUTROPHILS 0 %; LYMPHOCYTES % (MANUAL) 47 %; NEUTROPHILS % (MANUAL) 39 %
[2019-04-22 12:23] LABS: BASOPHILS % (MANUAL) 0 %; EOSINOPHILS % (MANUAL) 6 %; MONOCYTES % (MANUAL) 8 %; RBC MORPH NORMAL
[2019-04-22 13:37] VITALS: BP 106/65
== END ==
LOC: SDC 11:09
PROVIDERS: ATTEND Pediatrics
DX: B18.2 Chronic viral hepatitis C (principal)
CPT/HCPCS: 36415; 36591; 80053; 85007; 85027; 87522

== ENCOUNTER → 2019-05-14 | Outpatient (CLI) | payer MEDICAID ==
--- NOTE | 2019-05-14 16:10 | Diagnostic Imaging Report ---
INDICATION: Routine screening. Comparison is made with prior mammograms from 05/08/2018 and 04/25/2017. 2-D and 3-D bilateral screening mammography was performed. The current study was also evaluated with a Computer Aided Detection (CAD) system. 3-D tomosynthesis was also performed and reviewed. FINDINGS: Scattered fibroglandular densities are identified bilaterally. There are benign-appearing nodules in the left breast primarily laterally located. These most likely represent either small cysts or intraparenchymal lymph nodes. No spiculated mass or malignant-appearing microcalcifications are seen. There are benign calcifications. Axillae are unremarkable apart from [id number] hub in the left axilla. IMPRESSION: No mammographic features suspicious for malignancy are identified. ACR BI-RADS Category 2: Benign findings. Result letter will be mailed to the patient. Note: At least 10% of breast cancer is not imaged by mammography. Dictated by: Dictated on workstation # [id number]
== END ==
LOC: RAD 10:40
PROVIDERS: ATTEND Pediatrics
DX: Z12.31 Encounter for screening mammogram for malignant neoplasm of breast (principal)
CPT/HCPCS: 77067

== ENCOUNTER 2019-09-14 09:55 | Outpatient (RCR) | payer MEDICAID ==
[2019-06-24 11:48] VITALS: BP 138/90
[2019-07-21 12:50] VITALS: BP 132/66
[~2019-09-14] VITALS: Ht 154.9 cm; Wt 81.8 kg
[2019-09-14 10:20] VITALS: BP 157/94
== END 2019-09-22 | disposition home or self-care (01) ==
LOC: SDC 09:55
PROVIDERS: ATTEND Nurse Practitioner Family
DX: Z45.2 Encounter for adjustment and management of vascular access device (principal); M06.9 Rheumatoid arthritis, unspecified; R56.9 Unspecified convulsions
CPT/HCPCS: 96523

== ENCOUNTER → 2019-09-14 | Outpatient (CLI) | payer MEDICAID ==
[~2019-09-14] MED LIST changes: +ACHD5005 PO; -HYDR-3812 PO; +OMEP40CA27 PO; -OMEP40CA36 PO; -ONDA8TAB12 SL; +ONDA8TAB15 SL; -VALA1000 PO; +VALA10007 PO
== END ==
LOC: SDC 09:54
PROVIDERS: ATTEND Internal Medicine Rheumatology
DX: M06.041 Rheumatoid arthritis without rheumatoid factor, right hand (principal); M06.042 Rheumatoid arthritis without rheumatoid factor, left hand
CPT/HCPCS: 36415; 85652; 86141

== ENCOUNTER → 2019-09-14 | Outpatient (CLI) | payer MEDICAID ==
[2019-09-14 10:28] LABS: BASOPHILS % (AUTO) 1 % (0-10); EOSINOPHILS # (AUTO) 0.1 10^3/uL (0.0-0.3); EOSINOPHILS % (AUTO) 2 % (0-10); HEMATOCRIT 41 % (35-52); HEMOGLOBIN 13.2 G/DL (11.5-16.0); LYMPHOCYTES # (AUTO) 1.9 X 10^3 (1.0-4.0); LYMPHOCYTES % (AUTO) 30 % (12-44); MEAN CORPUSCULAR HEMOGLOBIN 28 PG (25-34); MEAN CORPUSCULAR HGB CONC 32 G/DL (32-36); MEAN CORPUSCULAR VOLUME 88 FL (80-99); MEAN PLATELET VOLUME 10.5 FL (7.4-10.4); MONOCYTES # (AUTO) 0.5 X 10^3 (0.0-1.0); MONOCYTES % (AUTO) 8 % (0-12); NEUTROPHILS # (AUTO) 3.7 X 10^3 (1.8-7.8); NEUTROPHILS % (AUTO) 60 % (42-75); PLATELET COUNT 222 10^3/uL (130-400); RED CELL DISTRIBUTION WIDTH 15.2 % (10.0-14.5); WHITE BLOOD COUNT 6.2 10^3/uL (4.3-11.0)
[2019-09-14 10:41] LABS: ALBUMIN 4.1 GM/DL (3.2-4.5); CHLORIDE 108 MMOL/L (98-107); POTASSIUM 3.6 MMOL/L (3.6-5.0); SODIUM 141 MMOL/L (135-145)
[2019-09-14 10:42] LABS: CALCIUM 8.5 MG/DL (8.5-10.1)
[2019-09-14 10:43] LABS: GLUCOSE 129 MG/DL (70-105)
[2019-09-14 10:44] LABS: TOTAL PROTEIN 7.7 GM/DL (6.4-8.2)
[2019-09-14 10:45] LABS: BILIRUBIN,TOTAL 0.4 MG/DL (0.1-1.0); CARBON DIOXIDE 22 MMOL/L (21-32)
[2019-09-14 10:47] LABS: ALKALINE PHOSPHATASE 127 U/L (40-136); CREATININE SERUM 0.82 MG/DL (0.60-1.30); GFR ESTIMATED > 60
[2019-09-14 10:48] LABS: BUN/CREATININE RATIO 21
[2019-09-14 10:50] LABS: ALANINE AMINOTRANSFERASE 26 U/L (0-55)
== END ==
LOC: SDC 09:50
PROVIDERS: ATTEND Pediatrics
DX: I10 Essential (primary) hypertension (principal); B19.20 Unspecified viral hepatitis C without hepatic coma
CPT/HCPCS: 36415; 80053; 85025; 87522

== ENCOUNTER 2019-11-06 17:52 | Emergency (ER) | payer MEDICAID ==
[~2019-11-06] VITALS: Ht 152 cm; Wt 81.6 kg
[2019-11-06 17:55] VITALS: BP 163/79
[2019-11-06] MEDS ORDERED: TETANUS,DIPTH,PERTUSS P/F (BOOSTRIX) 0.5 ML VIAL IM ONE (18:15)
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
--- NOTE | 2019-11-06 18:31 | Diagnostic Imaging Report ---
INDICATION: Status post fall on to left knee, pain TECHNIQUE: 3 views of the left knee CORRELATION STUDY: None FINDINGS: The joint spaces are maintained. The articular surfaces are smooth and preserved. There is no acute bony abnormality. Soft tissues are unremarkable. IMPRESSION: 1. Negative for acute bony abnormality of the knee. Dictated by: Dictated on workstation # [id number]
--- NOTE | 2019-11-06 18:39 | Diagnostic Imaging Report ---
INDICATION: Status post fall, pain. TECHNIQUE: Three views of the right foot. CORRELATION STUDY: 09/15/2013. FINDINGS: No acute fracture. There are advanced degenerative changes at the 1st MTP joint. This includes joint space narrowing, osteophyte formation and loss of normal smooth cortical margins. This has adversely changed from prior study. There also appears to be degenerative changes through the interphalangeal joints which are held in partial flexion. Mild hypertrophic changes about the sesamoid bones over the 1st MTP joint. IMPRESSION: Negative for acute findings of the foot. Advanced degenerative changes centered at the 1st MTP joint. Dictated by: Dictated on workstation # [id number]
== END 2019-11-06 18:50 | disposition home or self-care (01) ==
LOC: EDUNIT# 17:52 → ER 17:53
DX: S93.601A Unspecified sprain of right foot, initial encounter (principal); S80.02XA Contusion of left knee, initial encounter; I10 Essential (primary) hypertension; K21.9 Gastro-esophageal reflux disease without esophagitis; F41.9 Anxiety disorder, unspecified; F31.9 Bipolar disorder, unspecified; J44.9 Chronic obstructive pulmonary disease, unspecified; F17.210 Nicotine dependence, cigarettes, uncomplicated; Z23 Encounter for immunization; Z91.19 Patient's noncompliance with other medical treatment and regimen; Z88.8 Allergy status to other drugs, medicaments and biological substances; Z79.82 Long term (current) use of aspirin; Z95.9 Presence of cardiac and vascular implant and graft, unspecified; Z86.73 Personal history of transient ischemic attack (TIA), and cerebral infarction without residual deficits; W01.198A Fall on same level from slipping, tripping and stumbling with subsequent striking against other object, initial encounter; Y92.480 Sidewalk as the place of occurrence of the external cause
CPT/HCPCS: 73562; 73630; 90715; 99282

== ENCOUNTER 2020-01-18 13:39 | Outpatient (RCR) | payer MEDICAID ==
[2019-11-23 12:30] VITALS: BP 184/90
[2019-12-21 13:11] VITALS: BP 151/99
[~2020-01-18] VITALS: Ht 160 cm; Wt 81.6 kg
[~2020-01-18 13:39] MED LIST changes: -PANT40TA3 PO; +PANT40TA52 PO
[2020-01-18 14:00] VITALS: BP 189/105
[2020-02-02] MEDS ORDERED: LOPE2TAB34 PO (16:22)
[2020-02-02] MEDS ORDERED: ONDA4TAB11 PO (16:22)
== END 2020-02-21 | disposition home or self-care (01) ==
LOC: SDC 13:39
PROVIDERS: ATTEND Nurse Practitioner Family
DX: Z45.2 Encounter for adjustment and management of vascular access device (principal); M06.9 Rheumatoid arthritis, unspecified; R56.9 Unspecified convulsions
CPT/HCPCS: 36591; 96523

== ENCOUNTER → 2020-01-18 | Outpatient (CLI) | payer MEDICAID ==
[2020-01-18 14:07] LABS: HEMOGLOBIN 13.3 G/DL (11.5-16.0); MEAN PLATELET VOLUME 10.4 FL (7.4-10.4); WHITE BLOOD COUNT 7.9 10^3/uL (4.3-11.0)
[2020-01-18 14:32] LABS: ALANINE AMINOTRANSFERASE 28 U/L (0-55); ALBUMIN 4.1 GM/DL (3.2-4.5); ALKALINE PHOSPHATASE 137 U/L (40-136); BILIRUBIN,TOTAL 0.3 MG/DL (0.1-1.0); BUN/CREATININE RATIO 16; CALCIUM 9.3 MG/DL (8.5-10.1); CARBON DIOXIDE 24 MMOL/L (21-32); CHLORIDE 108 MMOL/L (98-107); CHOLESTEROL 154 MG/DL (< 200); CREATININE SERUM 0.89 MG/DL (0.60-1.30); GFR ESTIMATED > 60; GLUCOSE 130 MG/DL (70-105); HDL CHOLESTEROL 56 MG/DL (40-60); POTASSIUM 3.8 MMOL/L (3.6-5.0); SODIUM 139 MMOL/L (135-145); TOTAL PROTEIN 7.8 GM/DL (6.4-8.2); TRIGLYCERIDES 152 MG/DL (<150); VLDL CHOLESTEROL 30 MG/DL (5-40)
== END ==
LOC: SDC 13:40
PROVIDERS: ATTEND Pediatrics
DX: I10 Essential (primary) hypertension (principal)
CPT/HCPCS: 36415; 80053; 80061; 85027

== ENCOUNTER 2020-01-21 11:18 | Emergency (ER) | payer MEDICAID ==
[~2020-01-21] VITALS: Ht 154.9 cm; Wt 81.6 kg
[~2020-01-21 11:18] MED LIST changes: +PANT40TA3 PO; -PANT40TA52 PO
[2020-01-21 11:21] VITALS: BP 129/83
[2020-01-21 11:45] LABS: BILIRUBIN,URINE NEGATIVE (NEGATIVE); CLARITY,URINE CLEAR; COLOR,URINE YELLOW; GLUCOSE, URINE (UA) NEGATIVE (NEGATIVE); KETONES,URINE NEGATIVE (NEGATIVE); LEUKOCYTE ESTERASE ,URINE TRACE (NEGATIVE); NITRITE,URINE NEGATIVE (NEGATIVE); PH,URINE 5.5 (5-9); PROTEIN,URINE NEGATIVE (NEGATIVE)
--- NOTE | 2020-01-21 11:50 | ED General ---
General Chief Complaint: General Problems/Pain Stated Complaint: HIGH BP;R FOOT INFECTION Nursing Triage Note: PT AMB TO TRIAGE WITH COMPLAINT OF HIGH BLOOD PRESSURE. WAS OUT OF AMLODIPINE FOR A FEW DAYS. IS ALSO CONCERNED THAT SHE HAS AN INFECTION IN HER LEFT FOOT. STATES SHE IS ALSO CONCERNED SHE COULD BE SEPTIC DUE TO HER BLOOD PRESSURE BEING IN THE 120s SYSTOLIC. STATES SHE NORMALLY RUNS INT EH 180s. Nursing Sepsis Screen: No Definite Risk Source of Information: Patient Exam Limitations: No Limitations History of Present Illness Date Seen by Provider: Jan 21, 2020 Time Seen by Provider: 11:46 Initial Comments To ER with reports of a plantar wart to the bottom of her right foot for 7 years. She's also been having some high blood pressure but recently it has been low and she is concerned that this reduction of systolic blood pressure from around 200 down to 120 is not related torestarting the Norvasc that she had been out of, but is more related to sepsis despite no fevers chills or obvious signs of infection. 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 She is t rying to make an appointment with the only specialist in this in the entire [place] who happens to be in [place]. Timing/Duration: 1-2 Days Severity: Moderate Associated Systoms: No Cough, No Fever/Chills Allergies and Home Medications Allergies Coded Allergies: methotrexate (Verified Allergy, Severe, SEIZURE, 08/24/18) nitrofurantoin (Verified Allergy, Mild, 08/24/18) ziprasidone (Verified Allergy, Mild, 08/24/18) aripiprazole (Verified Adverse Reaction, Intermediate, TONGUE SWELLING, 08/24/18) Home Medications Albuterol Sulfate 6.7 Gm Hfa.aer.ad, 2 PUFF INH Q4H PRN for SHORTNESS OF BREATH, (Reported) Alprazolam 0.5 Mg Tablet, 0.5 MG PO TID PRN for ANXIETY, (Reported) Amlodipine Besylate 5 Mg Tablet, 5 MG PO DAILY, (Reported) Aspirin/Acetaminophen/Caffeine 1 Each Tablet, 1-2 TAB PO BID PRN for Headache, (Reported) Atenolol 50 Mg Tablet, 50 MG PO DAILY, (Reported) Naloxone HCl 4 Mg [place], 1 SPRAY NS UD PRN for OVERDOSE, (Reported) Omeprazole 40 Mg Capsule.dr, 40 MG PO DAILY, (Reported) Tramadol HCl 50 Mg Tablet, 50 MG PO TID PRN for PAIN-MODERATE, (Reported) Patient Home Medication List Home Medication List Reviewed: Yes Review of Systems Review of Systems Constitutional: see HPI EENTM: see HPI Respiratory: no symptoms reported Cardiovascular: no symptoms reported Genitourinary: no symptoms reported Musculoskeletal: no symptoms reported Skin: no symptoms reported Psychiatric/Neurological: No Symptoms Reported Hematologic/Lymphatic: No Symptoms Reported Past Hptkfgo-Teyifu-Fpimbw Hx Patient Social History Alcohol Use: Denies Use Recreational Drug Use: Yes (THC) Drug of Choice: +IV METH USE, THC, NARCOTIC USE/ABUSE Smoking Status: Current Everyday Smoker Type Used: Cigarettes 2nd Hand Smoke Exposure: No Recent Foreign Travel: No Contact w/Someone Who Travel: No Recent Infectious Disease Expo: No Recent Hopitalizations: No Immunizations Up To Date Tetanus Booster (TDap): Less than 5yrs PED Vaccines UTD: No Date of Influenza Vaccine: Jan 10, 2018 Seasonal Allergies Seasonal Allergies: No Past Medical History Surgeries: Yes (LUMPECTOMY;R CHEST TUBE/PNEUMOTHORAX; PORT; CARDIAC CATH 2009- NO INTERVENTI) Adenoidectomy, Breast, Cardiac, Gallbladder, 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, Oophorectomy, Tonsillectomy, Vascular Surgery Respiratory: Yes (SPONTANEOUS RIGHT PNEUMOTHORAX;CHEST TUBE) Pneumonia, Chronic Bronchitis, COPD Cardiac: Yes (CARDIAC CATH 2009-NO INTERVENTION) Hypertension Neurological: Yes Concussion, Headaches /Migraines, Seizure Disorder, Stroke, Traumatic Brain Injury 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 Disorders: 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 Sexually Transmitted Disease: No Genitourinary: Yes Bladder Infection, Kidney Stones Gastrointestinal: Yes (HEPATITIS C --NO TREATMENT) Gastroesophageal Reflux, Liver Disease/Jaundice, Chronic Constipation, Pancreatitis, Chronic Diarrhea, Hepatitis, Ulcer Musculoskeletal: Yes Degenerate Disk Disease, Arthritis, Fibromyalgia, Back Injury, Chronic Back Pain, Fractures Endocrine: No HEENT: Yes (EDENTULOUS, READING GLASSES) Loss of Vision: Bilateral Hearing Impairment: Denies Cancer: No Psychosocial: Yes (HX OF POLYSUBSTANCE ABUSE) Anxiety, Bipolar, Depression Integumentary: No Blood Disorders: No Family Medical History No Pertinent Family Hx Physical Exam Vital Signs Vital Signs - First Documented 01/21/20 11:21 Temp 37.0 Pulse 106 Resp 20 B/P (MAP) 129/83 (98) Pulse Ox 96 O2 Delivery Room Air Capillary Refill : Less Than 3 Seconds Height, Weight, BMI Height: 5'1.00" Weight: 182lbs. 0.0oz. 82.171190kc; 34.00 BMI Method:Actual General Appearance: No Apparent Distress, WD/WN Neck: Full Range of Motion, Normal Inspection Respiratory: No Accessory Muscle Use, No Respiratory Distress Gastrointestinal: Non Tender, Soft Extremity: Normal Capillary Refill, Normal Range of Motion, Other (there is a plantar wart to the plantar surface of the forefoot on the right which I shaved off partially using 10 blade scalpel just for the sake of pain control when walking.) Neurologic/Psychiatric: Alert, Oriented x3 Skin: Normal Color, Warm/Dry Progress/Results/Core Measures Suspected Sepsis Recent Fever Within 48 Hours: No Infection Criteria Present: None New/Unexplained Altered Menta: No Sepsis Screen: No Definite Risk SIRS Temperature: Pulse: 106 Respiratory Rate: 20 Laboratory Tests 01/21/20 11:53: White Blood Count 6.3 Blood Pressure 129 /83 Mean: 98 Laboratory Tests 01/21/20 11:53: Platelet Count 225 Results/Orders Lab Results Laboratory Tests Test 01/21/20 11:40 01/21/20 11:53 Range/Units Urine Color YELLOW Urine Clarity CLEAR Urine pH 5.5 5-9 Urine Specific [place] >=1.030 1.016-1.022 Urine Protein NEGATIVE NEGATIVE Urine Glucose (UA) NEGATIVE NEGATIVE Urine Ketones NEGATIVE NEGATIVE Urine Nitrite NEGATIVE NEGATIVE Urine Bilirubin NEGATIVE NEGATIVE Urine Urobilinogen 0.2 < = 1.0 MG/DL Urine Leukocyte Esterase TRACE H NEGATIVE Urine RBC (Auto) TRACE-L NEGATIVE Urine RBC NONE /HPF Urine WBC 2-5 /HPF Urine Squamous Epithelial Cells 25-50 H /HPF Urine Crystals PRESENT H /LPF Urine Calcium Oxalate Crystals LARGE H /LPF Urine Bacteria FEW H /HPF Urine Casts NONE /LPF Urine Mucus NEGATIVE /LPF Urine Culture Indicated NO Urine Opiates Screen NEGATIVE NEGATIVE Urine Oxycodone Screen NEGATIVE NEGATIVE Urine Methadone Screen NEGATIVE NEGATIVE Urine Propoxyphene Screen NEGATIVE NEGATIVE Urine Barbiturates Screen NEGATIVE NEGATIVE Ur Tricyclic Antidepressants Screen NEGATIVE NEGATIVE Urine Phencyclidine Screen NEGATIVE NEGATIVE Urine Amphetamines Screen POSITIVE H NEGATIVE Urine Methamphetamines Screen POSITIVE H NEGATIVE Urine Benzodiazepines Screen POSITIVE H NEGATIVE Urine Cocaine Screen NEGATIVE NEGATIVE Urine Cannabinoids Screen POSITIVE H NEGATIVE White Blood Count 6.3 4.3-11.0 10^3/uL Red Blood Count 4.53 4.35-5.85 10^6/uL Hemoglobin 12.6 11.5-16.0 G/DL Hematocrit 39 35-52 % Mean Corpuscular Volume 86 80-99 FL Mean Corpuscular Hemoglobin 28 25-34 PG Mean Corpuscular Hemoglobin Concent 32 32-36 G/DL Red Cell Distribution Width 15.3 H 10.0-14.5 % Platelet Count 225 130-400 10^3/uL Mean Platelet Volume 10.0 7.4-10.4 FL Neutrophils (%) (Auto) 52 42-75 % Lymphocytes (%) (Auto) 37 12-44 % Monocytes (%) (Auto) 9 0-12 % Eosinophils (%) (Auto) 2 0-10 % Basophils (%) (Auto) 0 0-10 % Neutrophils # (Auto) 3.3 1.8-7.8 X 10^3 Lymphocytes # (Auto) 2.3 1.0-4.0 X 10^3 Monocytes # (Auto) 0.6 0.0-1.0 X 10^3 Eosinophils # (Auto) 0.2 0.0-0.3 10^3/uL Basophils # (Auto) 0.0 0.0-0.1 10^3/uL My Orders Orders - HONORIO AGEE APRN Cbc With Automated Diff (01/21/20 11:36) Vital Signs/I&O 01/21/20 11:21 Temp 37.0 Pulse 106 Resp 20 B/P (MAP) 129/83 (98) Pulse Ox 96 O2 Delivery Room Air Capillary Refill : Less Than 3 Seconds Blood Pressure Mean: 98 Departure Impression Primary Impression: Plantar wart Disposition: 01 HOME, SELF-CARE Condition: Stable Departure-Patient Inst. Decision time for Depature: 11:50 Referrals: ROLF MCLAIN MD (PCP/Family) Primary Care Physician Patient Instructions: NO INSTRUCTIONS GIVEN Add. Discharge Instructions: 1. Return to ER for any concerns. Follow-up with your doctor next week for recheck. All discharge instructions reviewed with patient and/or family. Voiced understanding. HONORIO AGEE APRN Jan 21, 2020 11:50
[2020-01-21 11:55] LABS: BACTERIA,URINE FEW /HPF; CALCIUM OXALATE CRYSTALS,UR LARGE /LPF; SQUAMOUS EPITHELIAL CELL,UR 25-50 /HPF
[2020-01-21 11:59] LABS: BASOPHILS % (AUTO) 0 % (0-10); EOSINOPHILS # (AUTO) 0.2 10^3/uL (0.0-0.3); EOSINOPHILS % (AUTO) 2 % (0-10); HEMATOCRIT 39 % (35-52); HEMOGLOBIN 12.6 G/DL (11.5-16.0); LYMPHOCYTES # (AUTO) 2.3 X 10^3 (1.0-4.0); LYMPHOCYTES % (AUTO) 37 % (12-44); MEAN CORPUSCULAR HEMOGLOBIN 28 PG (25-34); MEAN CORPUSCULAR HGB CONC 32 G/DL (32-36); MEAN CORPUSCULAR VOLUME 86 FL (80-99); MONOCYTES # (AUTO) 0.6 X 10^3 (0.0-1.0); MONOCYTES % (AUTO) 9 % (0-12); NEUTROPHILS # (AUTO) 3.3 X 10^3 (1.8-7.8); NEUTROPHILS % (AUTO) 52 % (42-75); PLATELET COUNT 225 10^3/uL (130-400); WHITE BLOOD COUNT 6.3 10^3/uL (4.3-11.0)
[2020-01-21 12:05] LABS: AMPHETAMINE SCREEN, URINE POSITIVE (NEGATIVE); BARBITURATE SCREEN URINE NEGATIVE (NEGATIVE); BENZODIAZEPINES SCREEN URINE POSITIVE (NEGATIVE); CANNABINOID SCREEN, URINE POSITIVE (NEGATIVE); COCAINE SCREEN URINE NEGATIVE (NEGATIVE); METHADONE STAT NEGATIVE (NEGATIVE); METHAMPHETAMINE SCREEN URINE S POSITIVE (NEGATIVE); OPIATE SCREEN URINE NEGATIVE (NEGATIVE); OXYCODONE STAT NEGATIVE (NEGATIVE); PROPOXYPHENE STAT NEGATIVE (NEGATIVE); TRICYCLIC ANTIDEPRESSANTS SCRE NEGATIVE (NEGATIVE)
== END 2020-01-21 12:18 | disposition home or self-care (01) ==
LOC: EDUNIT# 11:18 → ER 11:18
DX: B07.0 Plantar wart (principal); K21.9 Gastro-esophageal reflux disease without esophagitis; F41.9 Anxiety disorder, unspecified; I10 Essential (primary) hypertension; F17.210 Nicotine dependence, cigarettes, uncomplicated; Z88.8 Allergy status to other drugs, medicaments and biological substances; Z95.9 Presence of cardiac and vascular implant and graft, unspecified; Z87.820 Personal history of traumatic brain injury; Z79.82 Long term (current) use of aspirin
CPT/HCPCS: 36415; 80306; 81000; 85025

== ENCOUNTER 2020-02-02 14:25 | Emergency (ER) | payer MEDICAID ==
[~2020-02-02] VITALS: Ht 154 cm; Wt 77.0 kg
[~2020-02-02 14:25] MED LIST changes: -PANT40TA3 PO; +PANT40TA52 PO
[2020-02-02] MEDS ORDERED: LACTATED RINGERS 1,000 ML IV ONE (14:42)
--- NOTE | 2020-02-02 15:16 | ED GI ---
General Chief Complaint: Cough/Cold/Flu Symptoms Stated Complaint: FEVER;COUGH Nursing Triage Note: pt presents to ed via pov with complaints of diahrrea, chills, lower abdominal pain, and cough x 2 days. pt reports she did recently travel to [place] and [facility] to visit family. Sepsis Screen: No Definite Risk Source of Information: Patient Exam Limitations: No Limitations History of Present Illness Date Seen by Provider: Feb 02, 2020 Time Seen by Provider: 14:30 Initial Comments Patient presents to ER by private conveyance from home with chief complaint of chills without fever, diarrhea and low abdominal pain for the last 2 days. She denies cough shortness of air or sick contacts. She denies eating or drinking any unsafe sources. She denies a history of irritable bowel or inflammatory hay wel. No blood in stool. No nausea or vomiting. She did recently traveled to [place] for 3 days last week. She has had multiple, copious stools today and has been urinating throughout the day. No history of diabetes. She does have a history of pancreatitis however. She denies drinking alcohol. She has not taken loperamide or other anti-diarrheal's. Patient has a history of cholecystectomy, hysterectomy, oophorectomy. Allergies and Home Medications Allergies Coded Allergies: methotrexate (Verified Allergy, Severe, SEIZURE, 08/24/18) nitrofurantoin (Verified Allergy, Mild, 08/24/18) ziprasidone (Verified Allergy, Mild, 08/24/18) aripiprazole (Verified Adverse Reaction, Intermediate, TONGUE SWELLING, 08/24/18) Home Medications Albuterol Sulfate 6.7 Gm Hfa.aer.ad, 2 PUFF INH Q4H PRN for SHORTNESS OF BREATH, (Reported) Alprazolam 0.5 Mg Tablet, 0.5 MG PO TID PRN for ANXIETY, (Reported) Amlodipine Besylate 5 Mg Tablet, 5 MG PO DAILY, (Reported) Aspirin/Acetaminophen/Caffeine 1 Each Tablet, 1-2 TAB PO BID PRN for Headache, (Reported) Atenolol 50 Mg Tablet, 50 MG PO DAILY, (Reported) Naloxone HCl 4 Mg [place], 1 SPRAY NS UD PRN for OVERDOSE, (Reported) Omeprazole 40 Mg Capsule.dr, 40 MG PO DAILY, (Reported) Tramadol HCl 50 Mg Tablet, 50 MG PO TID PRN for PAIN-MODERATE, (Reported) Patient Home Medication List Home Medication List Reviewed: Yes Review of Systems Review of Systems Constitutional: No chills, No diaphoresis, No fever; malaise EENTM: No Blurred Vision, No Double Vision Respiratory: Denies Cough, Denies Shortness of Air Cardiovascular: Denies Chest Pain, Denies Irregular Heart Rate Gastrointestinal: Denies Constipated; Diarrhea; Denies Nausea, Denies Poor Fluid Intake, Denies Vomiting Genitourinary: Denies Burning, Denies Discharge Musculoskeletal: No back pain, No gout, No joint pain Skin: No pruritus, No rash All Other Systems Reviewed Negative Unless Noted: Yes Past Juvwlum-Xombpx-Higepv Hx Patient Social History Alcohol Use: Denies Use Recreational Drug Use: Yes Drug of Choice: +IV METH USE, THC, NARCOTIC USE/ABUSE Smoking Status: Current Everyday Smoker Type Used: Cigarettes 2nd Hand Smoke Exposure: No Recent Foreign Travel: No Contact w/Someone Who Travel: No Recent Infectious Disease Expo: No Recent Hopitalizations: No Physical Abuse: No Sexual Abuse: No Mistreated: No Fear: No Immunizations Up To Date Tetanus Booster (TDap): Less than 5yrs PED Vaccines UTD: No Date of Influenza Vaccine: Jan 10, 2018 Seasonal Allergies Seasonal Allergies: No Past Medical History Surgeries: Yes (LUMPECTOMY;R CHEST TUBE/PNEUMOTHORAX; PORT; CARDIAC CATH 2009- NO INTERVENTI) Adenoidectomy, Breast, Cardiac, Gallbladder, 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, Oophorectomy, Tonsillectomy, Vascular Surgery Respiratory: Yes (SPONTANEOUS RIGHT PNEUMOTHORAX;CHEST TUBE) Pneumonia, Chronic Bronchitis, COPD Cardiac: Yes (CARDIAC CATH 2009-NO INTERVENTION) Hypertension Neurological: Yes Concussion, Headaches /Migraines, Seizure Disorder, Stroke, Traumatic Brain Injury 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 Disorders: No [employer] HEL[employer] History: 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 Sexually Transmitted Disease: No Genitourinary: Yes Bladder Infection, Kidney Stones Gastrointestinal: Yes (HEPATITIS C --NO TREATMENT) Gastroesophageal Reflux, Liver Disease/Jaundice, Chronic Constipation, Pancreatitis, Chronic Diarrhea, Hepatitis, Ulcer Musculoskeletal: Yes Degenerate Disk Disease, Arthritis, Fibromyalgia, Back Injury, Chronic Back Pain, Fractures Endocrine: No HEENT: Yes (EDENTULOUS, READING GLASSES) Loss of Vision: Bilateral Hearing Impairment: Denies Cancer: No Psychosocial: Yes (HX OF POLYSUBSTANCE ABUSE) Anxiety, Bipolar, Depression Integumentary: No Blood Disorders: No Family Medical History No Pertinent Family Hx Physical Exam Vital Signs Vital Signs - First Documented 02/02/20 14:38 Temp 36.8 Pulse 54 Resp 18 B/P (MAP) 158/79 (105) Pulse Ox 95 O2 Delivery Room Air Capillary Refill : Less Than 3 Seconds Height/Weight/BMI Height: 5'1.00" Weight: 182lbs. 0.0oz. 82.620620lt; 32.00 BMI Method:Actual General Appearance: WD/WN, no apparent distress HEENT: PERRL/EOMI, pharynx normal Neck: full range of motion, supple, normal inspection Respiratory: lungs clear, normal breath sounds, no respiratory distress, no accessory muscle use Cardiovascular: normal peripheral pulses, regular rate, rhythm, no edema Gastrointestinal: normal bowel sounds, soft, tenderness (bilateral lower quadrants mildly tender to palpation without Rovsing sign, rebound tenderness or psoas sign. No mesenteric signs. Ambulates without difficulty.) Extremities: normal range of motion, non-tender, normal capillary refill Neurologic/Psychiatric: alert, normal mood/affect, oriented x 3 Skin: normal color, warm/dry Progress/Results/Core Measures Results/Orders Lab Results Laboratory Tests Test 02/02/20 14:47 02/02/20 15:04 02/02/20 15:47 Range/Units White Blood Count 10.6 4.3-11.0 10^3/uL Red Blood Count 4.75 3.80-5.11 10^6/uL Hemoglobin 13.2 11.5-16.0 g/dL Hematocrit 41 35-52 % Mean Corpuscular Volume 86 80-99 fL Mean Corpuscular Hemoglobin 28 25-34 pg Mean Corpuscular Hemoglobin Concent 32 32-36 g/dL Red Cell Distribution Width 15.6 H 10.0-14.5 % Platelet Count 314 130-400 10^3/uL Mean Platelet Volume 10.6 9.0-12.2 fL Immature Granulocyte % (Auto) 0 % Neutrophils (%) (Auto) 61 42-75 % Lymphocytes (%) (Auto) 31 12-44 % Monocytes (%) (Auto) 7 0-12 % Eosinophils (%) (Auto) 0 0-10 % Basophils (%) (Auto) 0 0-10 % Neutrophils # (Auto) 6.5 1.8-7.8 10^3/uL Lymphocytes # (Auto) 3.3 1.0-4.0 10^3/uL Monocytes # (Auto) 0.7 0.0-1.0 10^3/uL Eosinophils # (Auto) 0.0 0.0-0.3 10^3/uL Basophils # (Auto) 0.0 0.0-0.1 10^3/uL Immature Granulocyte # (Auto) 0.0 0.0-0.1 10^3/uL Sodium Level 141 135-145 MMOL/L Potassium Level 3.5 L 3.6-5.0 MMOL/L Chloride Level 109 H 98-107 MMOL/L Carbon Dioxide Level 21 21-32 MMOL/L Anion Gap 11 5-14 MMOL/L Blood Urea Nitrogen 12 7-18 MG/DL Creatinine 0.76 0.60-1.30 MG/DL Estimat Glomerular Filtration Rate > 60 BUN/Creatinine Ratio 16 Glucose Level 97 70-105 MG/DL Calcium Level 8.5 8.5-10.1 MG/DL Corrected Calcium 8.3 L 8.5-10.1 MG/DL Total Bilirubin 0.5 0.1-1.0 MG/DL Aspartate Amino Transf (AST/SGOT) 17 5-34 U/L Alanine Aminotransferase (ALT/SGPT) 21 0-55 U/L Alkaline Phosphatase 122 40-136 U/L C-Reactive Protein High Sensitivity 0.34 0.00-0.50 MG/DL Total Protein 7.8 6.4-8.2 GM/DL Albumin 4.2 3.2-4.5 GM/DL Lipase 89 H 8-78 U/L Urine Color YELLOW Urine Clarity CLEAR Urine pH 6.0 5-9 Urine Specific [place] 1.025 H 1.016-1.022 Urine Protein NEGATIVE NEGATIVE Urine Glucose (UA) NEGATIVE NEGATIVE Urine Ketones 1+ H NEGATIVE Urine Nitrite NEGATIVE NEGATIVE Urine Bilirubin NEGATIVE NEGATIVE Urine Urobilinogen 0.2 < = 1.0 MG/DL Urine Leukocyte Esterase NEGATIVE NEGATIVE Urine RBC (Auto) 3+ H NEGATIVE Urine RBC 10-25 H /HPF Urine WBC RARE /HPF Urine Squamous Epithelial Cells 5-10 /HPF Urine Crystals NONE /LPF Urine Bacteria TRACE /HPF Urine Casts NONE /LPF Urine Mucus SMALL H /LPF Urine Culture Indicated NO My Orders Orders - PAULA VILLAR Coronavirus Sars-Cov-2 So 2019 (02/02/20 14:42) Cbc With Automated Diff (02/02/20 14:42) Comprehensive Metabolic Panel (02/02/20 14:42) Hs C Reactive Protein (02/02/20 14:42) Lipase (02/02/20 14:42) Ua Culture If Indicated (02/02/20 14:42) Ed Iv/Invasive Line Start (02/02/20 14:42) Lactated Ringers (Lr 1000 Ml Iv Solution (02/02/20 14:42) Medications Given in ED Current Medications Medications Dose Ordered Sig/Rene Route Start Time Stop Time Status Last Admin Dose Admin Lactated Ringer's 1,000 ml @ 0 mls/hr Q0M ONCE IV 02/02/20 14:42 02/02/20 14:51 DC 02/02/20 15:07 0 MLS/HR Vital Signs/I&O 02/02/20 14:38 Temp 36.8 Pulse 54 Resp 18 B/P (MAP) 158/79 (105) Pulse Ox 95 O2 Delivery Room Air Blood Pressure Mean: 105 Progress Progress Note #1: Time: 15:17 Progress Note Viral gastroenteritis versus other? Plan to get some labs and a COVID 19 swab send out. We'll give her a liter of fluids. Progress Note #2: Time: 16:18 Progress Note The patient's fluids are done and she is feeling better and ready to go home. Departure Impression Primary Impression: Gastroenteritis and colitis, viral Additional Impression: Person under investigation for COVID-19 Disposition: 01 HOME, SELF-CARE Condition: Stable Departure-Patient Inst. Decision time for Depature: 16:15 Referrals: ROLF MCLAIN MD (PCP/Family) Primary Care Physician Patient Instructions: Coronavirus Disease 2019 (COVID-19) Overview, Viral Gastroenteritis Add. Discharge Instructions: Drink plenty fluids. Imodium 2 tablets followed by one tablet every 4 hours afterwards if you're still having watery loose stools. If you develop nausea you can use ondansetron one tablet under the tongue every 6 hours as necessary. Go home and quarantine for at least 10 days from the start of your symptoms and 72 hours after your symptoms stop. All discharge instructions reviewed with patient and/or family. Voiced understanding. Scripts Loperamide HCl (Loperamide) 2 Mg Tablet 4 MG PO Q4H PRN for DIARRHEA, #30 TAB 0 Refills Prov: JIAN,PAULA J 02/02/20 Ondansetron (Ondansetron Odt) 4 Mg Tab.rapdis 4 MG PO Q6H PRN for NAUSEA/VOMITING, #8 TAB 0 Refills Prov: PAULA VILLAR 02/02/20 Work/School Note: Work Release Form Date Seen in the Emergency Department: Feb 02, 2020 Return to Work: Feb 10, 2020 Restrictions: No Restrictions Other Restrictions Listed Below: Must be 72 hours symptoms free before leading quarantine. PAULA VILLAR Feb 02, 2020 15:16
[2020-02-02 15:20] LABS: BASOPHILS % (AUTO) 0 % (0-10); EOSINOPHILS % (AUTO) 0 % (0-10); HEMATOCRIT 41 % (35-52); HEMOGLOBIN 13.2 g/dL (11.5-16.0); LYMPHOCYTES # (AUTO) 3.3 10^3/uL (1.0-4.0); LYMPHOCYTES % (AUTO) 31 % (12-44); MEAN CORPUSCULAR HEMOGLOBIN 28 pg (25-34); MEAN CORPUSCULAR HGB CONC 32 g/dL (32-36); MEAN CORPUSCULAR VOLUME 86 fL (80-99); MEAN PLATELET VOLUME 10.6 fL (9.0-12.2); MONOCYTES # (AUTO) 0.7 10^3/uL (0.0-1.0); MONOCYTES % (AUTO) 7 % (0-12); NEUTROPHILS # (AUTO) 6.5 10^3/uL (1.8-7.8); NEUTROPHILS % (AUTO) 61 % (42-75); PLATELET COUNT 314 10^3/uL (130-400); WHITE BLOOD COUNT 10.6 10^3/uL (4.3-11.0)
[2020-02-02 15:32] LABS: ALANINE AMINOTRANSFERASE 21 U/L (0-55); ALBUMIN 4.2 GM/DL (3.2-4.5); ALKALINE PHOSPHATASE 122 U/L (40-136); BILIRUBIN,TOTAL 0.5 MG/DL (0.1-1.0); BUN/CREATININE RATIO 16; CALCIUM 8.5 MG/DL (8.5-10.1); CARBON DIOXIDE 21 MMOL/L (21-32); CHLORIDE 109 MMOL/L (98-107); CREATININE SERUM 0.76 MG/DL (0.60-1.30); GFR ESTIMATED > 60; GLUCOSE 97 MG/DL (70-105); LIPASE 89 U/L (8-78); POTASSIUM 3.5 MMOL/L (3.6-5.0); SODIUM 141 MMOL/L (135-145); TOTAL PROTEIN 7.8 GM/DL (6.4-8.2)
[2020-02-02 15:52] LABS: BILIRUBIN,URINE NEGATIVE (NEGATIVE); CLARITY,URINE CLEAR; COLOR,URINE YELLOW; GLUCOSE, URINE (UA) NEGATIVE (NEGATIVE); KETONES,URINE 1+ (NEGATIVE); LEUKOCYTE ESTERASE ,URINE NEGATIVE (NEGATIVE); NITRITE,URINE NEGATIVE (NEGATIVE); PROTEIN,URINE NEGATIVE (NEGATIVE)
[2020-02-02 15:58] LABS: BACTERIA,URINE TRACE /HPF; WBC,URINE RARE /HPF
[2020-02-02] MEDS ORDERED: LOPE2TAB34 PO (16:22)
[2020-02-02] MEDS ORDERED: ONDA4TAB11 PO (16:22)
[2020-02-02 16:35] VITALS: BP 143/76
== END 2020-02-02 16:35 | disposition home or self-care (01) ==
LOC: EDUNIT# 14:25 → ER 14:26
DX: A08.4 Viral intestinal infection, unspecified (principal); I10 Essential (primary) hypertension; J44.9 Chronic obstructive pulmonary disease, unspecified; F41.9 Anxiety disorder, unspecified; G43.909 Migraine, unspecified, not intractable, without status migrainosus; K21.9 Gastro-esophageal reflux disease without esophagitis; F31.9 Bipolar disorder, unspecified; G89.29 Other chronic pain; M54.9 Dorsalgia, unspecified; M79.7 Fibromyalgia; F17.210 Nicotine dependence, cigarettes, uncomplicated; Z20.828 Contact with and (suspected) exposure to other viral communicable diseases; Z86.73 Personal history of transient ischemic attack (TIA), and cerebral infarction without residual deficits; Z88.1 Allergy status to other antibiotic agents; Z88.8 Allergy status to other drugs, medicaments and biological substances; Z79.82 Long term (current) use of aspirin
CPT/HCPCS: 80053; 81000; 83690; 85025; 86141; 99284; U0002; 36415; 87635

== ENCOUNTER 2020-04-13 12:32 | Outpatient (CLI) | payer MEDICAID ==
[~2020-04-13 12:32] MED LIST changes: +AMLO-250 PO; -AMLO5TAB9 PO; +LOPE2TAB34 PO
[2020-04-13 12:55] VITALS: BP 143/89
== END 2020-04-13 12:55 ==
LOC: SDC 12:32
PROVIDERS: ATTEND Neurological Surgery
DX: I63.311 Cerebral infarction due to thrombosis of right middle cerebral artery (principal)
CPT/HCPCS: 36415; 82565

== ENCOUNTER 2020-05-24 09:55 | Outpatient (RCR) | payer MEDICAID ==
[2020-03-20] MEDS: CATHETER FLUSH 10 ML SYR IV PRN (10:55)
[2020-03-20 11:00] VITALS: BP 144/93
[2020-04-13 12:45] VITALS: BP 143/89
[2020-04-13] MEDS: CATHETER FLUSH 10 ML SYR IV PRN (12:51)
[2020-05-24 09:55] VITALS: BP 119/82
== END 2020-06-18 | disposition home or self-care (01) ==
LOC: SDC 09:55
PROVIDERS: ATTEND Nurse Practitioner Family
DX: Z45.2 Encounter for adjustment and management of vascular access device (principal); J45.50 Severe persistent asthma, uncomplicated; D72.10 Eosinophilia, unspecified; Z86.69 Personal history of other diseases of the nervous system and sense organs
CPT/HCPCS: 96523

== ENCOUNTER → 2020-08-09 | Outpatient (CLI) | payer MEDICAID ==
[~2020-08-09] MED LIST changes: -LISI40TA PO; +LISI40TA9 PO
--- NOTE | 2020-08-10 14:48 | Diagnostic Imaging Report ---
INDICATION: Routine screening. COMPARISON: 05/14/2019 and 05/08/2018. TECHNIQUE: 2D and 3D bilateral screening mammography was performed with CAD. FINDINGS: Scattered fibroglandular densities are identified bilaterally. Small benign nodular densities in the outer left breast appear stable. No mass or malignant appearing microcalcifications are seen. There are benign calcifications. An Uogzxq-n-Edez hub in the left axilla is noted. IMPRESSION: No mammographic features suspicious for malignancy are identified. ACR BI-RADS Category 2: Benign findings. Result letter will be mailed to the patient. Note: At least 10% of breast cancer is not imaged by mammography. Dictated by: Dictated on workstation # [id number]
== END ==
LOC: RAD 11:13
PROVIDERS: ATTEND Pediatrics
DX: Z12.31 Encounter for screening mammogram for malignant neoplasm of breast (principal)
CPT/HCPCS: 77063; 77067

== ENCOUNTER 2020-08-21 13:20 | Outpatient (RCR) | payer MEDICAID ==
[2020-07-11 14:00] VITALS: BP 0/0
[~2020-08-21] VITALS: Ht 154 cm; Wt 77.0 kg
[~2020-08-21 13:20] MED LIST changes: -ACYC400T PO; +ACYC400T21 PO
[2020-08-21 13:35] VITALS: BP 143/93
== END 2020-10-09 | disposition home or self-care (01) ==
LOC: SDC 13:20
PROVIDERS: ATTEND Nurse Practitioner Family
DX: Z45.2 Encounter for adjustment and management of vascular access device (principal); D72.10 Eosinophilia, unspecified; J45.909 Unspecified asthma, uncomplicated; M06.9 Rheumatoid arthritis, unspecified; R56.9 Unspecified convulsions
CPT/HCPCS: 96523

== ENCOUNTER 2020-11-21 11:10 | Outpatient (RCR) | payer MEDICAID ==
[2020-10-17 12:16] VITALS: BP 121/76
[~2020-11-21] VITALS: Ht 154 cm; Wt 77.0 kg
[2020-11-21 11:10] VITALS: BP 136/76
[~2020-11-21 11:10] MED LIST changes: -OMEP40CA27 PO; +OMEP40CA6 PO; -SULF1TAB35 PO
== END 2021-01-15 | disposition home or self-care (01) ==
LOC: SDC 11:10
PROVIDERS: ATTEND Nurse Practitioner Family
DX: Z45.2 Encounter for adjustment and management of vascular access device (principal); D72.10 Eosinophilia, unspecified; J45.909 Unspecified asthma, uncomplicated; M06.9 Rheumatoid arthritis, unspecified; I63.311 Cerebral infarction due to thrombosis of right middle cerebral artery; R56.9 Unspecified convulsions
CPT/HCPCS: 96523

== ENCOUNTER 2021-01-17 18:20 | Emergency (ER) | payer MEDICAID ==
[~2021-01-17] VITALS: Ht 154 cm; Wt 90.7 kg
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
[2021-01-17] MEDS ORDERED: LORazepam INJ 2 MG/ML (ATIVAN) VIAL IVP ONE (18:30)
[2021-01-17 18:33] LABS: BASOPHILS % (AUTO) 1 % (0-10); EOSINOPHILS # (AUTO) 0.2 10^3/uL (0.0-0.3); EOSINOPHILS % (AUTO) 2 % (0-10); HEMATOCRIT 44 % (35-52); HEMOGLOBIN 14.5 g/dL (11.5-16.0); LYMPHOCYTES # (AUTO) 3.3 10^3/uL (1.0-4.0); LYMPHOCYTES % (AUTO) 47 % (12-44); MEAN CORPUSCULAR HEMOGLOBIN 30 pg (25-34); MEAN CORPUSCULAR HGB CONC 33 g/dL (32-36); MEAN CORPUSCULAR VOLUME 92 fL (80-99); MEAN PLATELET VOLUME 10.4 fL (9.0-12.2); MONOCYTES # (AUTO) 0.6 10^3/uL (0.0-1.0); MONOCYTES % (AUTO) 9 % (0-12); NEUTROPHILS % (AUTO) 42 % (42-75); PLATELET COUNT 222 10^3/uL (130-400); WHITE BLOOD COUNT 7.1 10^3/uL (4.3-11.0)
[2021-01-17 18:43] LABS: ALBUMIN 3.9 GM/DL (3.2-4.5); POTASSIUM 3.8 MMOL/L (3.6-5.0)
[2021-01-17 18:44] LABS: CALCIUM 9.2 MG/DL (8.5-10.1)
[2021-01-17 18:46] LABS: TOTAL PROTEIN 7.4 GM/DL (6.4-8.2)
[2021-01-17 18:47] LABS: BILIRUBIN,TOTAL 0.3 MG/DL (0.1-1.0)
[2021-01-17 18:49] LABS: CREATININE SERUM 0.8 MG/DL (0.60-1.30)
[2021-01-17 18:54] LABS: BILIRUBIN,URINE NEGATIVE (NEGATIVE); CLARITY,URINE CLEAR; COLOR,URINE YELLOW; GLUCOSE, URINE (UA) NEGATIVE (NEGATIVE); KETONES,URINE NEGATIVE (NEGATIVE); LEUKOCYTE ESTERASE ,URINE NEGATIVE (NEGATIVE); NITRITE,URINE NEGATIVE (NEGATIVE); PROTEIN,URINE NEGATIVE (NEGATIVE)
[2021-01-17 19:05] LABS: BACTERIA,URINE FEW /HPF
[2021-01-17 19:06] LABS: AMORPHOUS SEDIMENT,UR FEW AMOR URATES /LPF
--- NOTE | 2021-01-17 19:14 | Diagnostic Imaging Report ---
EXAMINATION: CT head without contrast. TECHNIQUE: Multiple contiguous axial images were obtained through the brain without the use of intravenous contrast. All CT scans use one or more of the following dose optimizing techniques: automated exposure control, MA and/or KvP adjustment based on patient size and exam type or iterative reconstruction. HISTORY: Left arm numbness. History of prior stroke. COMPARISON: 11/11/2016. 03/06/2010. FINDINGS: No large acute territorial ischemia, mass or hemorrhage. No midline shift or mass effect. Old infarct is seen in the right frontal lobe, similar to the prior exam. Senescent mineralization is seen in the bilateral basal ganglia. The ventricles, cortical sulci and basilar cisterns are patent and unremarkable. The orbits are normal. Small amount of fluid is seen in the right maxillary sinus. Mastoid air cells are clear. No soft tissue abnormality is seen. No osseus lesion or fracture is seen. IMPRESSION: 1. No large acute territorial ischemia, mass or hemorrhage. 2. Old infarct in the right frontal lobe. 3. Small amount of fluid in the right maxillary sinus which may represent acute sinusitis. Dictated by: Dictated on workstation # [id number]
[2021-01-17 19:15] LABS: AMPHETAMINE SCREEN, URINE POSITIVE (NEGATIVE); BARBITURATE SCREEN URINE NEGATIVE (NEGATIVE); BENZODIAZEPINES SCREEN URINE POSITIVE (NEGATIVE); CANNABINOID SCREEN, URINE POSITIVE (NEGATIVE); COCAINE SCREEN URINE NEGATIVE (NEGATIVE); METHADONE STAT NEGATIVE (NEGATIVE); METHAMPHETAMINE SCREEN URINE S POSITIVE (NEGATIVE); OPIATE SCREEN URINE NEGATIVE (NEGATIVE); OXYCODONE STAT NEGATIVE (NEGATIVE); PROPOXYPHENE STAT NEGATIVE (NEGATIVE); TRICYCLIC ANTIDEPRESSANTS SCRE NEGATIVE (NEGATIVE)
[2021-01-17 19:32] VITALS: BP 127/84
== END 2021-01-17 19:32 | disposition home or self-care (01) ==
LOC: EDUNIT# 18:20 → ER 18:23
DX: F15.90 Other stimulant use, unspecified, uncomplicated (principal); I10 Essential (primary) hypertension; J44.9 Chronic obstructive pulmonary disease, unspecified; K21.9 Gastro-esophageal reflux disease without esophagitis; G89.29 Other chronic pain; M54.9 Dorsalgia, unspecified; F41.9 Anxiety disorder, unspecified; F31.9 Bipolar disorder, unspecified; Z63.8 Other specified problems related to primary support group; Z79.82 Long term (current) use of aspirin; Z79.891 Long term (current) use of opiate analgesic; Z79.899 Other long term (current) drug therapy
CPT/HCPCS: 36415; 70450; 80053; 80306; 81000; 85025; 87088; 93005

== ENCOUNTER 2021-02-26 12:43 | Outpatient (RCR) | payer MEDICAID ==
[~2021-02-26] VITALS: Ht 154 cm; Wt 90.7 kg
[~2021-02-26 12:43] MED LIST changes: +ONDA-106 SL; -ONDA8TAB15 SL
[2021-02-26 13:05] VITALS: BP 0/0
== END 2021-05-11 | disposition home or self-care (01) ==
LOC: SDC 12:43
PROVIDERS: ATTEND Nurse Practitioner Family
DX: Z45.2 Encounter for adjustment and management of vascular access device (principal); J45.909 Unspecified asthma, uncomplicated; D72.10 Eosinophilia, unspecified; M06.9 Rheumatoid arthritis, unspecified; I63.311 Cerebral infarction due to thrombosis of right middle cerebral artery; R56.9 Unspecified convulsions
CPT/HCPCS: 96523

== ENCOUNTER → 2021-04-25 | Outpatient (CLI) | payer MEDICAID ==
[~2021-04-25] VITALS: Ht 154.9 cm; Wt 84.1 kg
[2021-04-25 12:50] VITALS: BP 113/97
[2021-04-25 13:16] LABS: BASOPHILS # (AUTO) 0.1 10^3/uL (0.0-0.1); BASOPHILS % (AUTO) 1 % (0-10); EOSINOPHILS # (AUTO) 0.1 10^3/uL (0.0-0.3); EOSINOPHILS % (AUTO) 1 % (0-10); HEMATOCRIT 44 % (35-52); HEMOGLOBIN 14.6 g/dL (11.5-16.0); LYMPHOCYTES # (AUTO) 2.9 10^3/uL (1.0-4.0); LYMPHOCYTES % (AUTO) 36 % (12-44); MEAN CORPUSCULAR HEMOGLOBIN 30 pg (25-34); MEAN CORPUSCULAR HGB CONC 34 g/dL (32-36); MEAN CORPUSCULAR VOLUME 90 fL (80-99); MEAN PLATELET VOLUME 10.2 fL (9.0-12.2); MONOCYTES # (AUTO) 0.8 10^3/uL (0.0-1.0); MONOCYTES % (AUTO) 9 % (0-12); NEUTROPHILS # (AUTO) 4.2 10^3/uL (1.8-7.8); NEUTROPHILS % (AUTO) 53 % (42-75); PLATELET COUNT 310 10^3/uL (130-400); WHITE BLOOD COUNT 8.1 10^3/uL (4.3-11.0)
[2021-04-25 13:40] LABS: BILIRUBIN,TOTAL 0.3 MG/DL (0.1-1.0); CREATININE SERUM 0.84 MG/DL (0.60-1.30); TOTAL PROTEIN 8.8 GM/DL (6.4-8.2)
[2021-04-25 13:41] LABS: POTASSIUM 5.6 MMOL/L (3.6-5.0)
== END ==
LOC: SDC 12:45
PROVIDERS: ATTEND Pediatrics
DX: I63.9 Cerebral infarction, unspecified (principal); I10 Essential (primary) hypertension
CPT/HCPCS: 36415; 36591; 80053; 85025

== ENCOUNTER → 2021-06-20 | Outpatient (CLI) | payer MEDICAID ==
[2021-06-20 12:45] VITALS: BP 129/77
[2021-06-20 13:40] LABS: CALCIUM 8.8 MG/DL (8.5-10.1); CREATININE SERUM 0.78 MG/DL (0.60-1.30); POTASSIUM 4.1 MMOL/L (3.6-5.0)
== END ==
LOC: SDC 12:32
PROVIDERS: ATTEND Pediatrics
DX: I63.9 Cerebral infarction, unspecified (principal); I10 Essential (primary) hypertension
CPT/HCPCS: 36415; 36591; 80048

== ENCOUNTER 2021-07-24 17:06 | Emergency (ER) | payer MEDICAID ==
[~2021-07-24] VITALS: Ht 154 cm; Wt 87.0 kg
[2021-07-24 17:15] VITALS: BP_SYST 95
--- NOTE | 2021-07-24 18:18 | ED Upper Extremity ---
General Chief Complaint: Upper Extremity Stated Complaint: POSSIBLE BLOOD CLOT Nursing Triage Note: ARRIVED VIA AMB WITH COMPLAINTS OF SWELLING TO LEFT ARM AND CHEST X2 MONTHS. WAS SENT FROM [facility] TO CHECK FOR A BLOOD CLOT. Source: patient History of Present Illness Date Seen by Provider: Jul 24, 2021 Time Seen by Provider: 18:00 Initial Comments PT ARRIVES VIA POV FROM HOME C/O LEFT ARM PAIN AND SWELLING FOR OVER 2 MONTHS, WORSE THE LAST 2 DAYS NO PARESTHESIAS OR MOTOR DEFICITS THE LAST 2 DAYS, THE PAIN AND SWELLING HAS ALSO INVOLVED HER LEFT BREAST/UPPER CHEST AND LEFT SIDE OF NECK HAS PAIN IN LEFT CHEST FOR 2 MONTHS WELL HAS HAD MILD SHORTNESS OF BREATH NO FEVER/SWEATS/CHILLS NO COUGH STATES SHE HAS SEEN DR. MCLAIN FOR IT AND NO TESTS OR RX'S GIVEN WENT TO [facility] IN [place] ABOUT 3 WEEKS AGO, HAD XRAYS AND WERE REPORTEDLY NORMAL. GIVEN RX FOR TORADOL AND REFERRED TO ORTHOPEDIC SURGEON--HAS AN APPOINTMENT IN WITH ORTHOPEDIC SURGEON FOR THIS PROBLEM STATES SHE HAS BEEN TO [facility] [place]ST W[place] FOR IT. HAD XRAYS DONE, NO RX'S. WAS TOLD SHE NEEDED AN MRI OF HER SHOULDER. WENT THERE AGAIN TODAY AND WAS TOLD TO COME HERE TO GET CHECKED FOR A BLOOD CLOT PT HAS PORT IN LEFT CHEST FOR POOR VENOUS ACCESS. SAW DR. ARIAS LAST WEEK TO HAVE PORT CHECKED AND TO SEE IF IT WAS CAUSING HER ARM PAIN AND SWELLING AND SHE REP ORTS THAT IT WAS WORKING FINE ( FLUSHED AND CLIFFORD BLOOD WELL) AND WAS TOLD THAT THE PORT WAS NOT THE CAUSE FOR HER ARM PAIN AND SWELLING. STATES SHE HAS LEFT SHOULDER AND UPPER ARM PAIN WHEN RAISING HER LEFT ARM HAS ALSO HAD PAIN IN LEFT WRIST AT TIMES STATES SHE HAS SEEN A PHYSICAL SECURITY ENGINEER IN THE PAST FOR CHRONIC PAIN ISSUES/JOINT PAIN--PT STATES THAT HE "DROPPED HER" A PATIENT "BECAUSE I DON'T HAVE RHEUMATOID ARTHRITIS" HAS ALSO SEEN A NEUROLOGIST IN THE PAST, BUT DOES NOT CURRENTLY SEE ONE--STATES MRI OF HER BRAIN IN THE PAST SHOWED SHE HAD "CALCIFICATIONS IN THE GANGLIA" PCP: FRANCESCO VALDOVINOS Allergies and Home Medications Allergies Coded Allergies: methotrexate (Verified Allergy, Severe, SEIZURE, 08/24/18) nitrofurantoin (Verified Allergy, Mild, 08/24/18) ziprasidone (Verified Allergy, Mild, 08/24/18) aripiprazole (Verified Adverse Reaction, Intermediate, TONGUE SWELLING, 08/24/18) Patient Home Medication List Home Medication List Reviewed: Yes Albuterol Sulfate (Proventil Hfa) 6.7 Gm Hfa.aer.ad, 2 PUFF INH Q4H PRN for SHORTNESS OF BREATH, (Reported) Entered as Reported by: FÁTIMA DE SANTIAGO on 01/14/19 1455 Alprazolam (Alprazolam) 0.5 Mg Tablet, 0.5 MG PO TID PRN for ANXIETY, (Reported) Entered as Reported by: FÁTIMA DE SANTIAGO on 01/14/19 145 Amlodipine Besylate (Amlodipine Besylate) 5 Mg Tablet, 5 MG PO DAILY, (Reported) Entered as Reported by: FÁTIMA DE SANTIAGO on 01/14/19 145 Aspirin/Acetaminophen/Caffeine (Excedrin Migraine Caplet) 1 Each Tablet, 1-2 TAB PO BID PRN for Headache, (Reported) Entered as Reported by: FÁTIMA DE SANTIAGO on 01/14/19 145 Atenolol (Atenolol) 50 Mg Tablet, 50 MG PO DAILY, (Reported) Entered as Reported by: FÁTIMA DE SANTIAGO on 01/14/19 145 Loperamide HCl (Loperamide) 2 Mg Tablet, 4 MG PO Q4H PRN for DIARRHEA Prescribed by: PAULA VILLAR on 02/02/20 162 Naloxone HCl (Narcan) 4 Mg [place], 1 SPRAY NS UD PRN for OVERDOSE, (Reported) Entered as Reported by: FÁTIMA DE SANTIAGO on 01/14/19 1504 Omeprazole (Omeprazole) 40 Mg Capsule.dr, 40 MG PO DAILY, (Reported) Entered as Reported by: FÁTIMA DE SANTIAGO on 01/14/19 1455 Ondansetron (Ondansetron Odt) 4 Mg Tab.rapdis, 4 MG PO Q6H PRN for NAUSEA/VOMITING Prescribed by: PAULA VILLAR on 02/02/20 1622 Tramadol HCl (Tramadol HCl) 50 Mg Tablet, 50 MG PO TID PRN for PAIN-MODERATE, (Reported) Entered as Reported by: FÁTIMA DE SANTIAGO on 01/14/19 1455 Review of Systems Constitutional: no symptoms reported EENTM: no symptoms reported Respiratory: see HPI Cardiovascular: see HPI Gastrointestinal: no symptoms reported Genitourinary: no symptoms reported Musculoskeletal: see HPI Skin: no symptoms reported Psychiatric/Neurological: No Symptoms Reported Past Fnaiykn-Cwskul-Dtvztx Hx Patient Social History Tobacco Use?: Yes Tobacco type used: Cigarettes Smoking Status: Current Everyday Smoker Substance use?: Yes Substance type: Methamphetamine, Marijuana Alcohol Use?: Yes Immunizations Up To Date Tetanus Booster (TDap): Less than 5yrs PED Vaccines UTD: No Seasonal Allergies Seasonal Allergies: No Past Medical History Surgeries: Yes (LUMPECTOMY;R CHEST TUBE/PNEUMOTHORAX; PORT; CARDIAC CATH 2009- NO INTERVENTI) Adenoidectomy, Breast, Cardiac, Gallbladder, 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, Oophorectomy, Tonsillectomy, Vascular Surgery Respiratory: Yes (SPONTANEOUS RIGHT PNEUMOTHORAX;CHEST TUBE) Pneumonia, Chronic Bronchitis, COPD Cardiac: Yes (CARDIAC CATH 2009-NO INTERVENTION) Hypertension Neurological: Yes Concussion, Headaches /Migraines, Seizure Disorder, Stroke, Traumatic Brain Injury 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, 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 Sexually Transmitted Disease: No Genitourinary: Yes Bladder Infection, Kidney Stones Gastrointestinal: Yes (HEPATITIS C --NO TREATMENT) Gastroesophageal Reflux, Liver Disease/Jaundice, Chronic Constipation, Pancr eatitis, Chronic Diarrhea, Hepatitis, Ulcer Musculoskeletal: Yes (LEFT WRIST FRACTURE/NO SURGERY-CHRONIC DEFORMITY) Degenerate Disk Disease, Arthritis, Fibromyalgia, Back Injury, Chronic Back Pain, Fractures Endocrine: No HEENT: Yes (EDENTULOUS, READING GLASSES) Loss of Vision: Bilateral Hearing Impairment: Denies Cancer: No Psychosocial: Yes (HX OF POLYSUBSTANCE ABUSE) Anxiety, Bipolar, Depression Integumentary: No Blood Disorders: No Family Medical History No Pertinent Family Hx SOCIAL HISTORY: -SMOKES > 2 PPD -ETOH--HISTORY OF ABUSE/HEAVY USE, NOW ONLY DRINKS "OCCASIONALLY" -DRUGS--HX OF IV METH USE, NARCOTIC ABUSE, THC USE PAST SURGICAL HISTORY: -BREAST LUMPECTOMY--BENIGN -RIGHT CHEST TUBE FOR SPONTANEOUS PNEUMOTHORAX -PORT LEFT CHEST FOR POOR VENOUS ACCESS -CARDIAC CAT 2009--NO INTERVENTION -CHOLECYSTECTOMY -HYSTERECTOMY / BILATERAL SALPINGO-OOPHORECTOMY -TONSILLECTOMY / ADENOIDECTOMY LONG HISTORY OF NON -COMPLIANCE IN ALL ASPECTS OF CARE Physical Exam Vital Signs Vital Signs - First Documented 07/24/21 17:15 Temp 37.0 Pulse 120 Resp 16 B/P (MAP) 95/ Pulse Ox 95 O2 Delivery Room Air Capillary Refill : Less Than 3 Seconds Height, Weight, BMI Height: 5'1.00" Weight: 182lbs. 0.0oz. 82.457885cc; 36.00 BMI Method:Actual General Appearance: no apparent distress, obese, other (SPEECH RAPID AND SOMEWHAT MUMBLED AND ERRATIC--DIFFICULT TO KEEP ON SUBJECT. REEKS OF CIGARETTES. ) Neck: non-tender, full range of motion, supple, normal inspection Cardiovascular: normal peripheral pulses, regular rate, rhythm, no edema, no JVD, no murmur Respiratory: normal breath sounds, no respiratory distress, no accessory muscle use, other (PORT TO LEFT CHEST APPEARS NORMAL. UNABLE TO APPRECIATE ANY SWELLING TO CHEST/BREAST OR NECK. NO SKIN DISCOLORATION TO AREA. ) Gastrointestinal: normal bowel sounds, non tender, soft Back: no CVA tenderness, no vertebral tenderness Shoulder: No asymmetry, No bone tenderness, No deformity, No ecchymosis; limited ROM (LIMITED ROM AT LEFT SHOULDER DUE TO PAIN IN SHOULDER JOINT AND UPPER ARM. HAS CHRONIC DEFORMITY TO LEFT WRIST WITH SOME ULNAR DEVIATION OF LEFT HAND AND FINGERS--PT STATES IT HAS BEEN THAT WAY SINCE SHE BROKE HER WRIST. TENDERNESS TO LEFT DELTOID AND BICEPS AREA. 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 NO SKIN DISCOLORATION OR RASH NO TEMPERATURE DISCREPANCY SENSORY AND VASCULAR ARE INTACT. ROM IS LIMITED AT SHOULDER DUE TO PAIN, BUT NO PROBLEMS WITH ROM DISTAL TO SHOULDER JOINT. HAS SOME TENDERNESS TO SHOULDER JOINT AND DELTOID AND BICEPS AREA--PROXIMAL HALF OF LEFT UPPER ARM. NO TENDERNESS TO ANY OTHER PART OF ARM NO AXILLARY TENDERNESS OR SWELLING OR ADENOPATHY NO BREAST ABNORMALITIES NOTED. Progress/Results/Core Measures Results/Orders Lab Results Laboratory Tests Test 07/24/21 18:25 07/24/21 18:34 Range/Units Urine Color YELLOW Urine Clarity CLEAR Urine pH 6.0 5-9 Urine Specific [place] >=1.030 1.016-1.022 Urine Protein NEGATIVE NEGATIVE Urine Glucose (UA) NEGATIVE NEGATIVE Urine Ketones NEGATIVE NEGATIVE Urine Nitrite NEGATIVE NEGATIVE Urine Bilirubin NEGATIVE NEGATIVE Urine Urobilinogen 0.2 < = 1.0 MG/DL Urine Leukocyte Esterase TRACE H NEGATIVE Urine RBC (Auto) 1+ H NEGATIVE Urine RBC 0-2 /HPF Urine WBC 2-5 /HPF Urine Crystals PRESENT H /LPF Urine Amorphous Sediment RARE OLGA URATES H /LPF Urine Bacteria TRACE /HPF Urine Casts NONE /LPF Urine Mucus NEGATIVE /LPF Urine Culture Indicated NO Urine Opiates Screen NEGATIVE NEGATIVE Urine Oxycodone Screen NEGATIVE NEGATIVE Urine Methadone Screen NEGATIVE NEGATIVE Urine Propoxyphene Screen NEGATIVE NEGATIVE Urine Barbiturates Screen NEGATIVE NEGATIVE Ur Tricyclic Antidepressants Screen NEGATIVE NEGATIVE Urine Phencyclidine Screen NEGATIVE NEGATIVE Urine Amphetamines Screen POSITIVE H NEGATIVE Urine Methamphetamines Screen POSITIVE H NEGATIVE Urine Benzodiazepines Screen POSITIVE H NEGATIVE Urine Cocaine Screen NEGATIVE NEGATIVE Urine Cannabinoids Screen POSITIVE H NEGATIVE White Blood Count 10.0 4.3-11.0 10^3/uL Red Blood Count 4.70 3.80-5.11 10^6/uL Hemoglobin 13.9 11.5-16.0 g/dL Hematocrit 42 35-52 % Mean Corpuscular Volume 90 80-99 fL Mean Corpuscular Hemoglobin 30 25-34 pg Mean Corpuscular Hemoglobin Concent 33 32-36 g/dL Red Cell Distribution Width 14.1 10.0-14.5 % Platelet Count 270 130-400 10^3/uL Mean Platelet Volume 10.0 9.0-12.2 fL Immature Granulocyte % (Auto) 0 % Neutrophils (%) (Auto) 45 42-75 % Lymphocytes (%) (Auto) 44 12-44 % Monocytes (%) (Auto) 9 0-12 % Eosinophils (%) (Auto) 1 0-10 % Basophils (%) (Auto) 1 0-10 % Neutrophils # (Auto) 4.4 1.8-7.8 10^3/uL Lymphocytes # (Auto) 4.4 H 1.0-4.0 10^3/uL Monocytes # (Auto) 0.9 0.0-1.0 10^3/uL Eosinophils # (Auto) 0.1 0.0-0.3 10^3/uL Basophils # (Auto) 0.1 0.0-0.1 10^3/uL Immature Granulocyte # (Auto) 0.0 0.0-0.1 10^3/uL Erythrocyte Sedimentation Rate 20 0-30 MM/HR Prothrombin Time 13.1 12.2-14.7 SEC INR Comment 1.0 0.8-1.4 Activated Partial Thromboplast Time 29 24-35 SEC D-Dimer 1.02 H 0.00-0.49 UG/ML Sodium Level 139 135-145 MMOL/L Potassium Level 4.0 3.6-5.0 MMOL/L Chloride Level 105 98-107 MMOL/L Carbon Dioxide Level 20 L 21-32 MMOL/L Anion Gap 14 5-14 MMOL/L Blood Urea Nitrogen 21 H 7-18 MG/DL Creatinine 0.94 0.60-1.30 MG/DL Estimat Glomerular Filtration Rate 73 BUN/Creatinine Ratio 22 Glucose Level 99 70-105 MG/DL Calcium Level 9.8 8.5-10.1 MG/DL Corrected Calcium 9.6 8.5-10.1 MG/DL Magnesium Level 2.3 1.6-2.4 MG/DL Total Bilirubin 0.4 0.1-1.0 MG/DL Aspartate Amino Transf (AST/SGOT) 32 5-34 U/L Alanine Aminotransferase (ALT/SGPT) 39 0-55 U/L Alkaline Phosphatase 112 40-136 U/L Total Creatine Kinase 106 29-168 U/L Creatine Kinase MB 2.0 <6.6 NG/ML Myoglobin 34.3 10.0-92.0 NG/ML Troponin I < 0.028 <0.028 NG/ML C-Reactive Protein High Sensitivity 0.25 0.00-0.50 MG/DL B-Type Natriuretic Peptide < 10.0 <100.0 PG/ML Total Protein 7.7 6.4-8.2 GM/DL Albumin 4.2 3.2-4.5 GM/DL TSH [place] Testing 1.32 0.35-4.94 UIU/ML My Orders Orders - KRIS WHALEN DO Ed Iv/Invasive Line Start (07/24/21 18:07) Ekg Tracing (07/24/21 18:07) Monitor-Rhythm Ecg Trace Only (07/24/21 18:07) Bnp [place] (07/24/21 18:07) Cbc With Automated Diff (07/24/21 18:07) Comprehensive Metabolic Panel (07/24/21 18:07) Creatine Kinase (07/24/21 18:07) Creatine Kinase Mb (07/24/21 18:07) Hs C Reactive Protein (07/24/21 18:07) Fibrin Degradation Products (07/24/21 18:07) Drug Screen Stat (Urine) (07/24/21 18:07) Magnesium (07/24/21 18:07) Protime With Inr (07/24/21 18:07) Partial Thromboplastin Time (07/24/21 18:07) Thyroid Analyzer (07/24/21 18:07) Ua Culture If Indicated (07/24/21 18:07) Erythrocyte Sedimentation Rate (07/24/21 18:07) Myoglobin Serum (07/24/21 18:07) Troponin I [place] (07/24/21 18:07) Chest Pa/Lat (2 View) (07/24/21 18:07) Vital Signs/I&O 07/24/21 17:15 Temp 37.0 Pulse 120 Resp 16 B/P (MAP) 95/ Pulse Ox 95 O2 Delivery Room Air Progress Progress Note : Progress Note 1931-AFTER INITIALLY AGREEING TO CT, WHEN XRAY STAFF CAME TO TAKE PT TO CT, PT THEN REFUSED THE CT STATING THAT SHE HAS ANXIETY, AND NOW WANTS TO LEAVE AMA AND WILL JUST WAIT TO GET MRI DONE Initial ECG Impression Date: Jul 24, 2021 Initial ECG Impression Time: 18:19 Initial ECG Rate: 104 Initial ECG Rhythm: S.Tach Diagnostic Imaging Comments CXR--PER RADIOLOGIST REPORT AT 1841 FINDINGS: [id number] is again seen overlying the left chest in similar position. Lungs/pleura: There is mild bibasilar atelectasis. Otherwise, lungs are clear. There is no pneumothorax. There is no pleural effusion. Mediastinum: Unremarkable. Pulmonary vasculature: Unremarkable. Heart: Unremarkable. Bones/extrathoracic soft tissue: Unremarkable. IMPRESSION: There is mild bibasilar atelectasis. There is no interval lung infiltrate. Reviewed: Reviewed by Me Departure Impression Primary Impression: Left against medical advice Additional Impressions: Left shoulder pain Illicit drug use Methamphetamine use Marijuana use Disposition: AGAINST MEDICAL ADVICE Condition: Against Medical Advice Departure-Patient Inst. Referrals: ROLF MCLAIN MD (PCP/Family) Primary Care Physician KRIS WHALEN DO Jul 24, 2021 18:18
--- NOTE | 2021-07-24 18:21 | Diagnostic Imaging Report ---
CLINICAL INDICATION: Patient with chest pain and dyspnea. EXAM: Chest x-ray, PA and lateral views. COMPARISON: Chest x-ray dated 03/17/2019. FINDINGS: [id number] is again seen overlying the left chest in similar position. Lungs/pleura: There is mild bibasilar atelectasis. Otherwise, lungs are clear. There is no pneumothorax. There is no pleural effusion. Mediastinum: Unremarkable. Pulmonary vasculature: Unremarkable. Heart: Unremarkable. Bones/extrathoracic soft tissue: Unremarkable. IMPRESSION: There is mild bibasilar atelectasis. There is no interval lung infiltrate. Dictated by: Dictated on workstation # [id number]
[2021-07-24 18:31] LABS: BILIRUBIN,URINE NEGATIVE (NEGATIVE); CLARITY,URINE CLEAR; COLOR,URINE YELLOW; GLUCOSE, URINE (UA) NEGATIVE (NEGATIVE); KETONES,URINE NEGATIVE (NEGATIVE); LEUKOCYTE ESTERASE ,URINE TRACE (NEGATIVE); NITRITE,URINE NEGATIVE (NEGATIVE); PROTEIN,URINE NEGATIVE (NEGATIVE)
[2021-07-24 18:51] LABS: ALBUMIN 4.2 GM/DL (3.2-4.5); CHLORIDE 105 MMOL/L (98-107); SODIUM 139 MMOL/L (135-145)
[2021-07-24 18:52] LABS: CALCIUM 9.8 MG/DL (8.5-10.1)
[2021-07-24 18:53] LABS: GLUCOSE 99 MG/DL (70-105)
[2021-07-24 18:54] LABS: TOTAL PROTEIN 7.7 GM/DL (6.4-8.2)
[2021-07-24 18:54] LABS: AMPHETAMINE SCREEN, URINE POSITIVE (NEGATIVE); BARBITURATE SCREEN URINE NEGATIVE (NEGATIVE); BENZODIAZEPINES SCREEN URINE POSITIVE (NEGATIVE); CANNABINOID SCREEN, URINE POSITIVE (NEGATIVE); COCAINE SCREEN URINE NEGATIVE (NEGATIVE); METHADONE STAT NEGATIVE (NEGATIVE); METHAMPHETAMINE SCREEN URINE S POSITIVE (NEGATIVE); OPIATE SCREEN URINE NEGATIVE (NEGATIVE); OXYCODONE STAT NEGATIVE (NEGATIVE); PROPOXYPHENE STAT NEGATIVE (NEGATIVE); TRICYCLIC ANTIDEPRESSANTS SCRE NEGATIVE (NEGATIVE)
[2021-07-24 18:55] LABS: BILIRUBIN,TOTAL 0.4 MG/DL (0.1-1.0); CARBON DIOXIDE 20 MMOL/L (21-32)
[2021-07-24 18:56] LABS: BASOPHILS # (AUTO) 0.1 10^3/uL (0.0-0.1); BASOPHILS % (AUTO) 1 % (0-10); EOSINOPHILS # (AUTO) 0.1 10^3/uL (0.0-0.3); EOSINOPHILS % (AUTO) 1 % (0-10); HEMATOCRIT 42 % (35-52); HEMOGLOBIN 13.9 g/dL (11.5-16.0); LYMPHOCYTES # (AUTO) 4.4 10^3/uL (1.0-4.0); LYMPHOCYTES % (AUTO) 44 % (12-44); MEAN CORPUSCULAR HEMOGLOBIN 30 pg (25-34); MEAN CORPUSCULAR HGB CONC 33 g/dL (32-36); MEAN CORPUSCULAR VOLUME 90 fL (80-99); MONOCYTES # (AUTO) 0.9 10^3/uL (0.0-1.0); MONOCYTES % (AUTO) 9 % (0-12); NEUTROPHILS # (AUTO) 4.4 10^3/uL (1.8-7.8); NEUTROPHILS % (AUTO) 45 % (42-75); PLATELET COUNT 270 10^3/uL (130-400)
[2021-07-24 18:56] LABS: AMORPHOUS SEDIMENT,UR RARE AMOR URATES /LPF; BACTERIA,URINE TRACE /HPF; RBC,URINE 0-2 /HPF
[2021-07-24 18:57] LABS: ALKALINE PHOSPHATASE 112 U/L (40-136); CREATININE SERUM 0.94 MG/DL (0.60-1.30); GFR ESTIMATED 73
[2021-07-24 18:58] LABS: BUN/CREATININE RATIO 22
[2021-07-24 19:00] LABS: ALANINE AMINOTRANSFERASE 39 U/L (0-55); CREATINE KINASE 106 U/L (29-168); MAGNESIUM 2.3 MG/DL (1.6-2.4)
[2021-07-24 19:05] LABS: FIBRIN DEGRADATION PRODUCTS 1.02 UG/ML (0.00-0.49); PROTHROMBIN TIME PATIENT 13.1 SEC (12.2-14.7)
[2021-07-24 19:16] LABS: ERYTHROCYTE SEDIMENTATION RATE 20 MM/HR (0-30)
[2021-07-24 19:20] LABS: TSH (THYROID ANALYZER) 1.32 UIU/ML (0.35-4.94)
== END 2021-07-24 19:43 | disposition left against medical advice (07) ==
LOC: EDUNIT# 17:06 → ER 17:08
DX: M25.512 Pain in left shoulder (principal); F19.90 Other psychoactive substance use, unspecified, uncomplicated; F15.90 Other stimulant use, unspecified, uncomplicated; F12.90 Cannabis use, unspecified, uncomplicated; E66.9 Obesity, unspecified; F17.210 Nicotine dependence, cigarettes, uncomplicated; Z68.36 Body mass index [BMI] 36.0-36.9, adult
CPT/HCPCS: 36415; 71046; 80053; 80306; 81000; 82550; 82553; 83735; 83874; 83880; 84443; 84484; 85025; 85379; 85610; 85652; 85730; 86141; 93005; 93041

== ENCOUNTER → 2021-07-30 | Outpatient (CLI) | payer MEDICAID ==
--- NOTE | 2021-07-30 13:32 | Diagnostic Imaging Report ---
EXAMINATION: Magnetic resonance imaging of the left shoulder without contrast. DATE: July 30, 2021. COMPARISON: None. HISTORY: 51-year-old female, left shoulder pain. TECHNIQUE: Magnetic Resonance Imaging sequences were performed of the shoulder without contrast. FINDINGS: There are limitations of the exam relating to motion artifact and low [id number] ratio. ROTATOR CUFF, LIGAMENTS, TENDONS, AND MUSCLES: There is an 5 mm wide full-thickness or near full-thickness tear involving the anterior leading edge of the supraspinatus tendon insertion with the tear measuring 6 mm in medial to lateral extent as measured on coronal T2 fat saturation sequence image 14. The infraspinatus and teres minor tendons are intact. The subscapularis tendon is grossly intact on limited assessment. There is normal rotator cuff muscle bulk and signal. LONG HEAD OF BICEPS: The biceps labral attachment and long head of the biceps tendon are intact. The long head of the biceps tendon is normally positioned within the bicipital groove. GLENOHUMERAL JOINT: The humeral head is well positioned relative to the glenoid. There is limited labral evaluation given the degree of limitations on the axial sequence in particular. There is no definite discrete labral tear. There is no identified paralabral cyst. The articular cartilage is grossly intact. There is no joint effusion. ACROMIOCLAVICULAR JOINT: The acromioclavicular joint is normally aligned. The coracoclavicular and coracoacromial ligaments are intact. There are mild acromioclavicular degenerative changes without large undersurface osteophyte. BONE: There is no os acromiale. There is no Hill-Sachs deformity. There is no acute fracture, bone contusion, or evidence of osteonecrosis. There are very small subcortical cystic changes in the superior humeral head underlying the supraspinatus and infraspinatus tendon insertions with a 3 mm subcortical cyst in the superior humeral head underlying the tendon insertion of teres minor. BURSAE AND SOFT TISSUES: The bursae and soft tissue surrounding the shoulder are unremarkable. IMPRESSION: 1. 5 mm wide full-thickness or near full-thickness tear involving the anterior leading edge of the supraspinatus tendon with the tear measuring 6 mm in medial to lateral extent. No fatty muscle atrophy. 2. Mild acromioclavicular degenerative changes without large undersurface osteophyte. 3. Grossly intact labrum and unremarkable additional glenohumeral joint assessment. 4. No acute fracture, bone contusion, or evidence of osteonecrosis. Dictated by: Dictated on workstation # [id number]
== END ==
LOC: RAD 12:30
PROVIDERS: ATTEND Physician Assistant
DX: M19.012 Primary osteoarthritis, left shoulder (principal); M25.712 Osteophyte, left shoulder; M75.102 Unspecified rotator cuff tear or rupture of left shoulder, not specified as traumatic; M25.532 Pain in left wrist
CPT/HCPCS: 73221

== ENCOUNTER → 2021-09-06 | Outpatient (CLI) | payer MEDICAID ==
[~2021-09-06] VITALS: Ht 160 cm; Wt 87.0 kg
[2021-09-06 13:25] VITALS: BP 139/80
== END ==
LOC: SDC 13:07
PROVIDERS: ATTEND Surgery
DX: M06.9 Rheumatoid arthritis, unspecified (principal); Z86.69 Personal history of other diseases of the nervous system and sense organs
CPT/HCPCS: 96523

== ENCOUNTER 2021-11-15 10:46 | Outpatient (RCR) | payer MEDICAID ==
[~2021-11-15 10:46] MED LIST changes: -ASPI-789 PO; +ASPI1TAB23 PO
== END 2021-12-09 | disposition home or self-care (01) ==
PROVIDERS: ATTEND Physician Assistant Medical
DX: M75.102 Unspecified rotator cuff tear or rupture of left shoulder, not specified as traumatic (principal)

== ENCOUNTER 2021-12-16 02:17 | Emergency (ER) | payer MEDICAID ==
[2021-12-16] MEDS ORDERED: ASPIRIN 81 MG CHEW (CHILDREN'S ASA) PO ONE (02:30)
[2021-12-16 03:26] LABS: BASOPHILS # (AUTO) 0.1 10^3/uL (0.0-0.1); BASOPHILS % (AUTO) 1 % (0-10); EOSINOPHILS # (AUTO) 0.1 10^3/uL (0.0-0.3); EOSINOPHILS % (AUTO) 2 % (0-10); HEMATOCRIT 33 % (35-52); HEMOGLOBIN 10.9 g/dL (11.5-16.0); LYMPHOCYTES # (AUTO) 3.2 10^3/uL (1.0-4.0); LYMPHOCYTES % (AUTO) 50 % (12-44); MEAN CORPUSCULAR HEMOGLOBIN 29 pg (25-34); MEAN CORPUSCULAR HGB CONC 33 g/dL (32-36); MEAN CORPUSCULAR VOLUME 89 fL (80-99); MEAN PLATELET VOLUME 10.6 fL (9.0-12.2); MONOCYTES # (AUTO) 0.7 10^3/uL (0.0-1.0); MONOCYTES % (AUTO) 11 % (0-12); NEUTROPHILS # (AUTO) 2.4 10^3/uL (1.8-7.8); NEUTROPHILS % (AUTO) 37 % (42-75); PLATELET COUNT 194 10^3/uL (130-400); WHITE BLOOD COUNT 6.5 10^3/uL (4.3-11.0)
[2021-12-16 03:37] LABS: FIBRIN DEGRADATION PRODUCTS 0.52 UG/ML (0.00-0.49); PROTHROMBIN TIME PATIENT 13.9 SEC (12.2-14.7)
[2021-12-16 03:38] LABS: ALBUMIN 3.6 GM/DL (3.2-4.5); CHLORIDE 108 MMOL/L (98-107); POTASSIUM 3.4 MMOL/L (3.6-5.0); SODIUM 139 MMOL/L (135-145)
[2021-12-16 03:39] LABS: AMYLASE 91 U/L (25-125); CALCIUM 8.3 MG/DL (8.5-10.1)
[2021-12-16 03:40] LABS: GLUCOSE 89 MG/DL (70-105)
[2021-12-16 03:41] LABS: TOTAL PROTEIN 6.5 GM/DL (6.4-8.2)
[2021-12-16 03:42] LABS: BILIRUBIN,TOTAL 0.3 MG/DL (0.1-1.0); CARBON DIOXIDE 23 MMOL/L (21-32)
[2021-12-16 03:44] LABS: ALKALINE PHOSPHATASE 89 U/L (40-136); CREATININE SERUM 0.75 MG/DL (0.60-1.30); GFR ESTIMATED 95
[2021-12-16 03:45] LABS: BUN/CREATININE RATIO 16
[2021-12-16 03:47] LABS: ALANINE AMINOTRANSFERASE 28 U/L (0-55); MAGNESIUM 1.8 MG/DL (1.6-2.4)
[2021-12-16 03:48] LABS: CREATINE KINASE 67 U/L (29-168); LIPASE 215 U/L (8-78)
[2021-12-16 03:54] LABS: CREATINE KINASE MB 1.8 NG/ML (<6.6)
--- NOTE | 2021-12-16 04:12 | ED Chest Pain ---
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 ), old records History of Present Illness Date Seen by Provider: Dec 16, 2021 Time Seen by Provider: 02:26 Allergies and Home Medications Allergies Coded Allergies: methotrexate (Verified Allergy, Severe, SEIZURE, 08/24/18) nitrofurantoin (Verified Allergy, Mild, 08/24/18) ziprasidone (Verified Allergy, Mild, 08/24/18) aripiprazole (Verified Adverse Reaction, Intermediate, TONGUE SWELLING, 08/24/18) Patient Home Medication List Albuterol Sulfate (Proventil Hfa) 6.7 Gm Hfa.aer.ad, 2 PUFF INH Q4H PRN for SHORTNESS OF BREATH, (Reported) Entered as Reported by: FÁTIMA DE SANTIAGO on 01/14/19 1455 Alprazolam (Alprazolam) 0.5 Mg Tablet, 0.5 MG PO TID PRN for ANXIETY, (Reported) Entered as Reported by: FÁTIMA DE SANTIAGO on 01/14/19 1455 Amlodipine Besylate (Amlodipine Besylate) 5 Mg Tablet, 5 MG PO DAILY, (Reported) Entered as Reported by: FÁTIMA DE SANTIAGO on 01/14/19 1455 Aspirin/Acetaminophen/Caffeine (Excedrin Migraine Caplet) 1 Each Tablet, 1-2 TAB PO BID PRN for Headache, (Reported) Entered as Reported by: FÁTIMA DE SANTIAGO on 01/14/19 1459 Atenolol (Atenolol) 50 Mg Tablet, 50 MG PO DAILY, (Reported) Entered as Reported by: FÁTIMA DE SANTIAGO on 01/14/19 1455 Loperamide HCl (Loperamide) 2 Mg Tablet, 4 MG PO Q4H PRN for DIARRHEA Prescribed by: PAULA VILLAR on 02/02/20 1622 Naloxone HCl (Narcan) 4 Mg [place], 1 SPRAY NS UD PRN for OVERDOSE, (Reported) Entered as Reported by: FÁTIMA DE SANTIAGO on 01/14/19 1504 Omeprazole (Omeprazole) 40 Mg Capsule.dr, 40 MG PO DAILY, (Reported) Entered as Reported by: FÁTIMA DE SANTIAGO on 01/14/19 1455 Ondansetron (Ondansetron Odt) 4 Mg Tab.rapdis, 4 MG PO Q6H PRN for NAUSEA/VOMIT ING Prescribed by: PAULA VILLAR on 02/02/20 1622 Tramadol HCl (Tramadol HCl) 50 Mg Tablet, 50 MG PO TID PRN for PAIN-MODERATE, (Reported) Entered as Reported by: FÁTIMA DE SANTIAGO on 01/14/19 1455 Past Efrhzxg-Cvudzh-Mzygzk Hx Immunizations Up To Date Tetanus Booster (TDap): Less than 5yrs PED Vaccines UTD: No Seasonal Allergies Seasonal Allergies: No Past Medical History Surgeries: Yes (LUMPECTOMY;R CHEST TUBE/PNEUMOTHORAX; PORT; CARDIAC CATH 2009- NO INTERVENTI) Adenoidectomy, Breast, Cardiac, Gallbladder, 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, Oophorectomy, Tonsillectomy, Vascular Surgery Respiratory: Yes (SPONTANEOUS RIGHT PNEUMOTHORAX;CHEST TUBE) Pneumonia, Chronic Bronchitis, COPD Cardiac: Yes (CARDIAC CATH 2009-NO INTERVENTION) Hypertension Neurological: Yes Concussion, Headaches /Migraines, Seizure Disorder, Stroke, Traumatic Brain Injury 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 Disorders: 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, 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 Sexually Transmitted Disease: No Genitourinary: Yes Bladder Infection, Kidney Stones Gastrointestinal: Yes (HEPATITIS C --NO TREATMENT) Gastroesophageal Reflux, Liver Disease/Jaundice, Chronic Constipation, Pancreatitis, Chronic Diarrhea, Hepatitis, Ulcer Musculoskeletal: Yes (LEFT WRIST FRACTURE/NO SURGERY-CHRONIC DEFORMITY) Degenerate Disk Disease, Arthritis, Fibromyalgia, Back Injury, Chronic Back Pain, Fractures Endocrine: No HEENT: Yes (EDENTULOUS, READING GLASSES) Loss of Vision: Bilateral Hearing Impairment: Denies Cancer: No Psychosocial: Yes (HX OF POLYSUBSTANCE ABUSE) Anxiety, Bipolar, Depression Integumentary: No Blood Disorders: No Family Medical History No Pertinent Family Hx SOCIAL HISTORY: -SMOKES > 2 PPD -ETOH--HISTORY OF ABUSE/HEAVY USE, NOW ONLY DRINKS "OCCASIONALLY" -DRUGS--HX OF IV METH USE, NARCOTIC ABUSE, THC USE PAST SURGICAL HISTORY: -BREAST LUMPECTOMY--BENIGN -RIGHT CHEST TUBE FOR SPONTANEOUS PNEUMOTHORAX -PORT LEFT CHEST FOR POOR VENOUS ACCESS -CARDIAC CAT 2009--NO INTERVENTION -CHOLECYSTECTOMY -HYSTERECTOMY / BILATERAL SALPINGO-OOPHORECTOMY -TONSILLECTOMY / ADENOIDECTOMY LONG HISTORY OF NON -COMPLIANCE IN ALL ASPECTS OF CARE Physical Exam Vital Signs Capillary Refill : Height, Weight, BMI Height: 5'1.00" Weight: 182lbs. 0.0oz. 82.476393fb; 36.00 BMI Method:Actual Progress/Results/Core Measures Results/Orders Lab Results Laboratory Tests Test 12/16/21 03:12 12/16/21 03:47 Range/Units White Blood Count 6.5 4.3-11.0 10^3/uL Red Blood Count 3.75 L 3.80-5.11 10^6/uL Hemoglobin 10.9 L 11.5-16.0 g/dL Hematocrit 33 L 35-52 % Mean Corpuscular Volume 89 80-99 fL Mean Corpuscular Hemoglobin 29 25-34 pg Mean Corpuscular Hemoglobin Concent 33 32-36 g/dL Red Cell Distribution Width 14.1 10.0-14.5 % Platelet Count 194 130-400 10^3/uL Mean Platelet Volume 10.6 9.0-12.2 fL Immature Granulocyte % (Auto) 0 % Neutrophils (%) (Auto) 37 L 42-75 % Lymphocytes (%) (Auto) 50 H 12-44 % Monocytes (%) (Auto) 11 0-12 % Eosinophils (%) (Auto) 2 0-10 % Basophils (%) (Auto) 1 0-10 % Neutrophils # (Auto) 2.4 1.8-7.8 10^3/uL Lymphocytes # (Auto) 3.2 1.0-4.0 10^3/uL Monocytes # (Auto) 0.7 0.0-1.0 10^3/uL Eosinophils # (Auto) 0.1 0.0-0.3 10^3/uL Basophils # (Auto) 0.1 0.0-0.1 10^3/uL Immature Granulocyte # (Auto) 0.0 0.0-0.1 10^3/uL Prothrombin Time 13.9 12.2-14.7 SEC INR Comment 1.0 0.8-1.4 Activated Partial Thromboplast Time 30 24-35 SEC D-Dimer 0.52 H 0.00-0.49 UG/ML Sodium Level 139 135-145 MMOL/L Potassium Level 3.4 L 3.6-5.0 MMOL/L Chloride Level 108 H 98-107 MMOL/L Carbon Dioxide Level 23 21-32 MMOL/L Anion Gap 8 5-14 MMOL/L Blood Urea Nitrogen 12 7-18 MG/DL Creatinine 0.75 0.60-1.30 MG/DL Estimat Glomerular Filtration Rate 95 BUN/Creatinine Ratio 16 Glucose Level 89 70-105 MG/DL Calcium Level 8.3 L 8.5-10.1 MG/DL Corrected Calcium 8.6 8.5-10.1 MG/DL Magnesium Level 1.8 1.6-2.4 MG/DL Total Bilirubin 0.3 0.1-1.0 MG/DL Aspartate Amino Transf (AST/SGOT) 19 5-34 U/L Alanine Aminotransferase (ALT/SGPT) 28 0-55 U/L Alkaline Phosphatase 89 40-136 U/L Total Creatine Kinase 67 29-168 U/L Creatine Kinase MB 1.8 <6.6 NG/ML Myoglobin 18.7 10.0-92.0 NG/ML Troponin I < 0.028 <0.028 NG/ML B-Type Natriuretic Peptide < 10.0 <100.0 PG/ML Total Protein 6.5 6.4-8.2 GM/DL Albumin 3.6 3.2-4.5 GM/DL Amylase Level 91 25-125 U/L Lipase 215 H 8-78 U/L Urine Opiates Screen NEGATIVE NEGATIVE Urine Oxycodone Screen NEGATIVE NEGATIVE Urine Methadone Screen NEGATIVE NEGATIVE Urine Propoxyphene Screen NEGATIVE NEGATIVE Urine Barbiturates Screen NEGATIVE NEGATIVE Ur Tricyclic Antidepressants Screen NEGATIVE NEGATIVE Urine Phencyclidine Screen NEGATIVE NEGATIVE Urine Amphetamines Screen POSITIVE H NEGATIVE Urine Methamphetamines Screen POSITIVE H NEGATIVE Urine Benzodiazepines Screen POSITIVE H NEGATIVE Urine Cocaine Screen NEGATIVE NEGATIVE Urine Cannabinoids Screen POSITIVE H NEGATIVE My Orders Orders - KRIS WHALEN DO Ed Iv/Invasive Line Start (12/16/21 02:26) Ekg Tracing (12/16/21 02:26) O2 (12/16/21 02:26) Monitor-Rhythm Ecg Trace Only (12/16/21 02:26) Amylase (12/16/21 02:26) Bnp [place] (12/16/21 02:) Cbc With Automated Diff (12/16/21 02:26) Comprehensive Metabolic Panel (12/16/21 02:26) Creatine Kinase (12/16/21 02:26) Creatine Kinase Mb (12/16/21 02:26) Fibrin Degradation Products (12/16/21 02:26) Lipase (12/16/21 02:26) Magnesium (12/16/21 02:26) Protime With Inr (12/16/21 02:26) Partial Thromboplastin Time (12/16/21 02:26) Troponin I [place] (12/16/21 02:26) Chest 1 View, Ap/Pa Only (12/16/21 02:26) Ekg Tracing (12/16/21 02:26) Myoglobin Serum (12/16/21 02:26) O2 (12/16/21 02:26) Lipid Panel (12/17/21 06:00) Ed Iv/Invasive Line Start (12/16/21 02:26) Aspirin Chewable Tablet (Baby Aspirin Ch (12/16/21 02:30) Drug Screen Stat (Urine) (12/16/21 02:26) Medications Given in ED Current Medications Medications Dose Ordered Sig/Rene Route Start Time Stop Time Status Last Admin Dose Admin Aspirin 324 mg ONCE ONCE PO 12/16/21 02:30 12/16/21 02:31 DC 12/16/21 02:52 324 MG Progress Progress Note : Progress Note NO SYMPTOMS OF ANY KIND DURING ER STAY NO CHEST PAIN AT ANY TIME BP DOWN AT DISMISSAL. PT FEELS COMFORTABLE GOING HOME Departure Impression Primary Impression: Chest pain Additional Impressions: HTN (hypertension) Anxiety Illicit drug use Methamphetamine use Marijuana use Disposition: 01 HOME, SELF-CARE Condition: Stable Departure-Patient Inst. Decision time for Depature: 04:21 Referrals: ROLF MCLAIN MD (PCP) Primary Care Physician [facility] (Family) Primary Care Physician Patient Instructions: High Blood Pressure ED, Anxiety, Adult ED, High Blood Pressure (DC), DASH Diet, Controlling Your Blood Pressure Through Lifestyle Add. Discharge Instructions: CONTINUE YOUR REGULAR MEDICATIONS PRESCRIBED KEEP YOUR APPOINTMENT WITH [facility] THIS WEEK RETURN TO ER IF SYMPTOMS RETURN All discharge instructions reviewed with patient and/or family. Voiced understanding. KRIS WHALEN DO Dec 16, 2021 04:12
[2021-12-16 04:26] LABS: AMPHETAMINE SCREEN, URINE POSITIVE (NEGATIVE); BARBITURATE SCREEN URINE NEGATIVE (NEGATIVE); BENZODIAZEPINES SCREEN URINE POSITIVE (NEGATIVE); CANNABINOID SCREEN, URINE POSITIVE (NEGATIVE); COCAINE SCREEN URINE NEGATIVE (NEGATIVE); METHADONE STAT NEGATIVE (NEGATIVE); OPIATE SCREEN URINE NEGATIVE (NEGATIVE); OXYCODONE STAT NEGATIVE (NEGATIVE); PROPOXYPHENE STAT NEGATIVE (NEGATIVE); TRICYCLIC ANTIDEPRESSANTS SCRE NEGATIVE (NEGATIVE)
[2021-12-16 04:54] VITALS: BP 155/89
--- NOTE | 2021-12-16 06:59 | Diagnostic Imaging Report ---
CHEST 1 VIEW, AP/PA ONLY Indication: Chest pain. Comparison: 07/24/2021 Findings: No focal airspace disease in the visualized lungs. Please note that the posterior lower lobes are poorly evaluated by portable radiography. No pleural effusion or pneumothorax. Normal cardiomediastinal silhouette. Impression: 1. No acute cardiopulmonary process by portable radiography. Dictated by: Dictated on workstation # [id number]
== END 2021-12-16 04:54 | disposition home or self-care (01) ==
LOC: EDUNIT# 02:17 → ER 02:19
DX: I10 Essential (primary) hypertension (principal); F41.9 Anxiety disorder, unspecified; F15.90 Other stimulant use, unspecified, uncomplicated; F12.90 Cannabis use, unspecified, uncomplicated; Z28.310 Unvaccinated for COVID-19
CPT/HCPCS: 36415; 71045; 80053; 80306; 82150; 82550; 82553; 83690; 83735; 83874; 83880; 84484; 85025; 85379; 85610; 85730; 93005; 93041

== ENCOUNTER 2021-12-16 05:56 | Emergency (ER) | payer MEDICAID ==
[~2021-12-16] VITALS: Ht 154 cm; Wt 79.3 kg
--- NOTE | 2021-12-16 07:09 | ED Lower Extremity ---
General Stated Complaint: SWOLLEN R ANKLE,SCRAPED L KNEE,FELL ON PAVEMENT Source: patient Exam Limitations: no limitations History of Present Illness Date Seen by Provider: Dec 16, 2021 Time Seen by Provider: 07:08 Initial Comments Patient is a 51-year-old female who presents to the emergency room with a chief complaint of right ankle pain and abrasion to left knee. She was seen in the emergency room earlier in the night, was being discharged walking in the parking lot, stepped in a hole and fell. She did not hit her head or have loss of consciousness. The was able to help her get in the house as the hours passed she noted worsening pain and swelling. Patient states it "hurts" full weight on her right foot. Unknown date of last tetanus. No other complaints of illness or injury. Onset: this morning Pain/Injury Location: right ankle Method of Injury: fell, twisted Modifying Factors: Worse With Movement Allergies and Home Medications Allergies Coded Allergies: methotrexate (Verified Allergy, Severe, SEIZURE, 08/24/18) nitrofurantoin (Verified Allergy, Mild, 08/24/18) ziprasidone (Verified Allergy, Mild, 08/24/18) aripiprazole (Verified Adverse Reaction, Intermediate, TONGUE SWELLING, 08/24/18) Patient Home Medication List Home Medication List Reviewed: Yes Albuterol Sulfate (Proventil Hfa) 6.7 Gm Hfa.aer.ad, 2 PUFF INH Q4H PRN for SHORTNESS OF BREATH, (Reported) Entered as Reported by: FÁTIMA DE SANTIAGO on 01/14/19 145 Alprazolam (Alprazolam) 0.5 Mg Tablet, 0.5 MG PO TID PRN for ANXIETY, (Reported) Entered as Reported by: FÁTIMA DE SANTIAGO on 01/14/19 145 Amlodipine Besylate (Amlodipine Besylate) 5 Mg Tablet, 5 MG PO DAILY, (Reported) Entered as Reported by: FÁTIMA DE SANTIAGO on 01/14/19 1455 Aspirin/Acetaminophen/Caffeine (Excedrin Migraine Caplet) 1 Each Tablet, 1-2 TAB PO BID PRN for Headache, (Reported) Entered as Reported by: FÁTIMA DE SANTIAGO on 01/14/19 1459 Atenolol (Atenolol) 50 Mg Tablet, 50 MG PO DAILY, (Reported) Entered as Reported by: FÁTIMA DE SANTIAGO on 01/14/19 1455 Loperamide HCl (Loperamide) 2 Mg Tablet, 4 MG PO Q4H PRN for DIARRHEA Prescribed by: PAULA VILLAR on 02/02/20 1622 Naloxone HCl (Narcan) 4 Mg [place], 1 SPRAY NS UD PRN for OVERDOSE, (Reported) Entered as Reported by: FÁTIMA DE SANTIAGO on 01/14/19 1504 Omeprazole (Omeprazole) 40 Mg Capsule.dr, 40 MG PO DAILY, (Reported) Entered as Reported by: FÁTIMA DE SANTIAGO on 01/14/19 1455 Ondansetron (Ondansetron Odt) 4 Mg Tab.rapdis, 4 MG PO Q6H PRN for NAUSEA/VOMITING Prescribed by: PAULA VILLAR on 02/02/20 1622 Tramadol HCl (Tramadol HCl) 50 Mg Tablet, 50 MG PO TID PRN for PAIN-MODERATE, (Reported) Entered as Reported by: FÁTIMA DE SANTIAGO on 01/14/19 1455 Review of Systems Constitutional: see HPI EENTM: no symptoms reported Respiratory: no symptoms reported Cardiovascular: no symptoms reported Gastrointestinal: no symptoms reported Genitourinary: no symptoms reported : No Musculoskeletal: joint pain (right ankle) Skin: other (abrasion) All Other Systems Reviewed Negative Unless Noted: Yes Past Dbsyfvb-Orasbb-Hgbktq Hx Immunizations Up To Date Tetanus Booster (TDap): Less than 5yrs PED Vaccines UTD: No Seasonal Allergies Seasonal Allergies: No Past Medical History Surgeries: Yes (LUMPECTOMY;R CHEST TUBE/PNEUMOTHORAX; PORT; CARDIAC CATH 2009- NO INTERVENTI) Adenoidectomy, Breast, Cardiac, Gallbladder, 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, Oophorectomy, Tonsillectomy, Vascular Surgery Respiratory: Yes (SPONTANEOUS RIGHT PNEUMOTHORAX;CHEST TUBE) Pneumonia, Chronic Bronchitis, COPD Cardiac: Yes (CARDIAC CATH 2009-NO INTERVENTION) Hypertension Neurological: Yes Concussion, Headaches /Migraines, Seizure Disorder, Stroke, Traumatic Brain Injury 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, 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 Sexually Transmitted Disease: No Genitourinary: Yes Bladder Infection, Kidney Stones Gastrointestinal: Yes (HEPATITIS C --NO TREATMENT) Gastroesophageal Reflux, Liver Disease/Jaundice, Chronic Constipation, Pancreatitis, Chronic Diarrhea, Hepatitis, Ulcer Musculoskeletal: Yes (LEFT WRIST FRACTURE/NO SURGERY-CHRONIC DEFORMITY) Degenerate Disk Disease, Arthritis, Fibromyalgia, Back Injury, Chronic Back Pain, Fractures Endocrine: No HEENT: Yes (EDENTULOUS, READING GLASSES) Loss of Vision: Bilateral Hearing Impairment: Denies Cancer: No Psychosocial: Yes (HX OF POLYSUBSTANCE ABUSE) Anxiety, Bipolar, Depression Integumentary: No Blood Disorders: No Family Medical History No Pertinent Family Hx SOCIAL HISTORY: -SMOKES > 2 PPD -ETOH--HISTORY OF ABUSE/HEAVY USE, NOW ONLY DRINKS "OCCASIONALLY" -DRUGS--HX OF IV METH USE, NARCOTIC ABUSE, THC USE PAST SURGICAL HISTORY: -BREAST LUMPECTOMY--BENIGN -RIGHT CHEST TUBE FOR SPONTANEOUS PNEUMOTHORAX -PORT LEFT CHEST FOR POOR VENOUS ACCESS -CARDIAC CAT 2009--NO INTERVENTION -CHOLECYSTECTOMY -HYSTERECTOMY / BILATERAL SALPINGO-OOPHORECTOMY -TONSILLECTOMY / ADENOIDECTOMY LONG HISTORY OF NON -COMPLIANCE IN ALL ASPECTS OF CARE Physical Exam Vital Signs Vital Signs - First Documented 12/16/21 07:15 Temp 36.9 Pulse 94 Resp 18 B/P (MAP) 147/87 (107) Pulse Ox 98 Capillary Refill : Height, Weight, BMI Height: 5'1.00" Weight: 182lbs. 0.0oz. 82.192121ra; 36.00 BMI Method:Actual General Appearance: WD/WN, no apparent distress HEENT: PERRL/EOMI Cardiovascular: regular rate, rhythm Respiratory: lungs clear, normal breath sounds, no respiratory distress, no accessory muscle use Hips: bilateral hip non-tender, bilateral hip normal inspection, bilateral hip normal range of motion, bilateral hip no evidence of injury Legs: bilateral leg non-tender, bilateral leg normal inspection, bilateral leg normal range of motion, bilateral leg no evidence of injury Knees: bilateral knee non-tender, bilateral knee normal inspection, bilateral knee normal range of motion, bilateral knee no evidence of injury Ankles: left ankle non-tender, left ankle normal inspection, left ankle normal range of motion, left ankle no evidence of injury; right ankle limited range of motion, right ankle pain, right ankle soft tissue tenderness, right ankle swelling Feet: bilateral foot non-tender, bilateral foot normal inspection, bilateral foot normal range of motion, bilateral foot no evidence of injury Neurologic/Psychiatric: alert, normal mood/affect, oriented x 3 Skin: normal color, warm/dry, other (Abrasion noted anterior left knee) Procedures/Interventions Splinting and Joint Reduction : Pre-Proc Neuro Vasc Exam: normal Post-Proc Neuro Vasc Exam: normal Pre-Procedure NV Exam: Yes Ordered: Crutches Hand-Made Type: orthoglass Splint Application: Short Leg Progress/Results/Core Measures Results/Orders My Orders Orders - ASTRID EDUARDO MD Ankle, Right, 3 Views (12/16/21 07:12) Dipht,Pertuss(Acell),Tet Adult (Boostrix (12/16/21 07:15) Ibuprofen Tablet (Motrin Tablet) (12/16/21 07:15) Medications Given in ED Current Medications Medications Dose Ordered Sig/Rene Route Start Time Stop Time Status Last Admin Dose Admin Diphtheria/ Tetanus/Acell Pertussis 0.5 ml ONCE ONCE IM 12/16/21 07:15 12/16/21 07:16 DC 12/16/21 07:23 0.5 ML Ibuprofen 600 mg ONCE ONCE PO 12/16/21 07:15 12/16/21 07:16 DC 12/16/21 07:23 600 MG Vital Signs/I&O 12/16/21 07:15 Temp 36.9 Pulse 94 Resp 18 B/P (MAP) 147/87 (107) Pulse Ox 98 Diagnostic Imaging Diagonstic Imaging: Xray Comments xray: distal fibular fracture; nondisplaced; - interpreted by me Departure Impression Primary Impression: Fracture of distal end of fibula Qualified Codes: S82.831A - Other fracture of upper and lower end of right fibula, initial encounter for closed fracture Additional Impression: Abrasion of left knee Qualified Codes: S80.212A - Abrasion, left knee, initial encounter Disposition: 01 HOME, SELF-CARE Condition: Stable Departure-Patient Inst. Decision time for Depature: 07:16 Referrals: ROLF MCLAIN MD (PCP) Primary Care Physician [facility] [place] (Family) Primary Care Physician LI GUEVARA MD Patient Instructions: Fibula Fracture (DC) Add. Discharge Instructions: Keep the splint on until you follow up with Orthopedics. Snsi-cji-xnffckh ibuprofen 600 mg which is 3 ntgm-uft-yvyokvq ibuprofen/Advil/Motrin. Take this every 6 hours with food as needed for pain and swelling. You can continue to take your Tramadol as needed for pain. Elevate the right ankle to help reduce the swelling as well. Ice pack for the next 24 to 48 hours off and on. Use the crutches for balance - you can put your toes down to help bear weight, Call Dr Guevara's office on Friday for a follow up appointment next week. Normal soap and water and a little triple antibiotic ointment to the abrasions of your left knee. We have updated your tetanus shot today. Return to the emergency department for any new, concerning or emergent complaints. Copy Copies To 1: ROLF MCLAIN MD Copies To 2: LI GUEVARA MD, KATHRYN M MD Dec 16, 2021 07:09
[2021-12-16] MEDS ORDERED: IBUPROFEN 600 MG (MOTRIN) TAB PO ONE (07:15)
[2021-12-16] MEDS ORDERED: TETANUS,DIPTH,PERTUSS P/F (BOOSTRIX) 0.5 ML VIAL IM ONE (07:15)
[2021-12-16 08:33] VITALS: BP 147/87
--- NOTE | 2021-12-16 08:44 | Diagnostic Imaging Report ---
INDICATION: Trauma, pain EXAMINATION: Right ankle 12/16/2021. FINDINGS: 3 views of the ankle. There is a transverse fracture of the distal fibula with overlying soft tissue swelling. Fracture is in good anatomic alignment. No other fracture is identified. Ankle mortise intact. IMPRESSION: 1. Transverse distal fibular fracture with overlying soft tissue swelling. Dictated by: Dictated on workstation # [id number]
== END 2021-12-16 08:33 | disposition home or self-care (01) ==
LOC: EDUNIT# 05:56 → ER 05:59
DX: S82.831A Other fracture of upper and lower end of right fibula, initial encounter for closed fracture (principal); S80.212A Abrasion, left knee, initial encounter; W18.30XA Fall on same level, unspecified, initial encounter; Y93.01 Activity, walking, marching and hiking; Y92.481 Parking lot as the place of occurrence of the external cause
CPT/HCPCS: 29515; 73610; 90715

== ENCOUNTER → 2021-12-19 | Outpatient (CLI) | payer MEDICAID | LOC: ORTHO 11:47 | PROVIDERS: ATTEND Orthopaedic Surgery | DX: S82.61XA Displaced fracture of lateral malleolus of right fibula, initial encounter for closed fracture (principal); X58.XXXA Exposure to other specified factors, initial encounter | CPT/HCPCS: 99203 ==

== ENCOUNTER → 2022-01-22 | Outpatient (CLI) | payer MEDICAID ==
--- NOTE | 2022-01-22 15:57 | Diagnostic Imaging Report ---
INDICATION: Pain after fall. EXAMINATION: Right ankle 01/22/2022 COMPARISON: 12/16/2021. FINDINGS: 3 views of the ankle redemonstrate a transverse fracture through the distal fibula. Alignment is maintained. No significant interval callus formation is appreciated. There is a vague lucency on one view only not appreciated on previous imaging along the medial malleolus possibly a fracture as well. Ankle mortise appears maintained. There is mild soft tissue swelling slightly improved since previous imaging. There are no dislocations. IMPRESSION: 1. Distal fibular and possibly medial malleolus fractures without evidence for significant healing. Dictated by: Dictated on workstation # [id number]
== END ==
LOC: ORTHO 14:06
PROVIDERS: ATTEND Orthopaedic Surgery
DX: Z47.89 Encounter for other orthopedic aftercare (principal); S82.491D Other fracture of shaft of right fibula, subsequent encounter for closed fracture with routine healing; X58.XXXD Exposure to other specified factors, subsequent encounter
CPT/HCPCS: 73610; G0463; 99213

== ENCOUNTER 2022-01-30 11:53 | Outpatient (RCR) | payer MEDICAID ==
[~2022-01-30 11:53] MED LIST changes: +ALBU6.7H13 IH; -ALBU6.7H8 IH
[2022-01-30 12:10] VITALS: BP 134/76
== END 2022-02-08 | disposition home or self-care (01) ==
LOC: SDC 11:53
PROVIDERS: ATTEND Nurse Practitioner Family
DX: Z45.2 Encounter for adjustment and management of vascular access device (principal)
CPT/HCPCS: 96523

== ENCOUNTER → 2022-01-30 | Outpatient (CLI) | payer MEDICAID ==
--- NOTE | 2022-01-30 13:37 | Diagnostic Imaging Report ---
INDICATION: Tear of left rotator cuff. COMPARISON: None. FINDINGS: Three views of the left shoulder were obtained. There is no fracture, dislocation, or other acute bony abnormality identified. The soft tissues appear unremarkable. No radiopaque foreign body is identified. The visualized portions of the left lung are clear. Indwelling subclavian central venous catheter is noted, but is only partially included in the field of view. IMPRESSION: No acute fractures or dislocations of the left shoulder. Dictated by: Dictated on workstation # [id number]
== END ==
LOC: ORTHO 12:51
PROVIDERS: ATTEND Orthopaedic Surgery
DX: M75.102 Unspecified rotator cuff tear or rupture of left shoulder, not specified as traumatic (principal); M25.571 Pain in right ankle and joints of right foot; M25.561 Pain in right knee
CPT/HCPCS: 73030; G0463; 99213

== ENCOUNTER → 2022-02-15 | Outpatient (CLI) | payer MEDICAID ==
--- NOTE | 2022-02-15 13:17 | Diagnostic Imaging Report ---
PROCEDURE: US venous upper extremity left. TECHNIQUE: Multiple realtime grayscale images were obtained of left upper extremity in various projections. Additional spectral analysis and color Doppler duplex images were also obtained. INDICATION: Left upper arm pain and swelling. FINDINGS: The left internal jugular vein as well as left subclavian and axillary veins are widely patent. The brachial vein is patent. Basilic and cephalic as well as radial and ulnar veins are patent. No thrombus is identified. No fluid collection or mass is detected. IMPRESSION: No evidence of left upper extremity DVT. Dictated by: Dictated on workstation # [id number]
== END ==
LOC: RAD 11:22
PROVIDERS: ATTEND Surgery
DX: M79.622 Pain in left upper arm (principal); M79.89 Other specified soft tissue disorders

== ENCOUNTER → 2022-02-26 | Outpatient (CLI) | payer MEDICAID ==
--- NOTE | 2022-02-26 21:23 | Diagnostic Imaging Report ---
INDICATION: Right ankle fracture follow-up. AP, oblique, lateral views of the right ankle are obtained. Comparison made to 01/22/2022 FINDINGS: Horizontal fracture of the distal fibula involving the lateral meniscus is unchanged compared to the prior study with stable alignment. No other fractures are visualized. Ankle joint space appears in stable alignment. IMPRESSION: Unchanged alignment of distal fibular horizontal fracture with no new abnormality. Dictated by: Dictated on workstation # [id number]
== END ==
LOC: ORTHO 09:44
PROVIDERS: ATTEND Orthopaedic Surgery
DX: S82.891D Other fracture of right lower leg, subsequent encounter for closed fracture with routine healing (principal); M25.512 Pain in left shoulder; X58.XXXD Exposure to other specified factors, subsequent encounter
CPT/HCPCS: 73610; G0463; 99213

== ENCOUNTER 2022-05-23 10:51 | Outpatient (RCR) | payer MEDICAID ==
[~2022-05-23] VITALS: Ht 154.9 cm; Wt 87.0 kg
[2022-05-23 11:45] VITALS: BP 154/88
== END 2022-06-11 | disposition home or self-care (01) ==
LOC: SDC 10:51
PROVIDERS: ATTEND Nurse Practitioner Family
DX: Z45.2 Encounter for adjustment and management of vascular access device (principal)
CPT/HCPCS: 96523

== ENCOUNTER → 2022-05-23 | Outpatient (CLI) | payer MEDICAID | LOC: RAD 10:21 | PROVIDERS: ATTEND Pediatrics | DX: Z53.9 Procedure and treatment not carried out, unspecified reason (principal) ==

== ENCOUNTER → 2022-05-23 | Outpatient (CLI) | payer MEDICAID | LOC: ORTHO 10:18 | PROVIDERS: ATTEND Orthopaedic Surgery | DX: M25.571 Pain in right ankle and joints of right foot (principal); J44.9 Chronic obstructive pulmonary disease, unspecified; I10 Essential (primary) hypertension; E66.9 Obesity, unspecified | CPT/HCPCS: 99213 ==

== ENCOUNTER → 2022-06-19 | Outpatient (CLI) | payer MEDICAID ==
--- NOTE | 2022-06-19 12:10 | Diagnostic Imaging Report ---
EXAMINATION: Right ankle radiograph, 3 views. COMPARISON: Right ankle radiographs February 26, 2022. HISTORY: 52-year-old female, right ankle pain. FINDINGS: There is interval bridging and healing of the prior distal fibular fracture below the level of the tibial plafond. There is no residual fracture line. There is no tibiotalar joint effusion. Alignment of the ankle mortise is unremarkable. There is no identified acute fracture. The joint spaces are well preserved. There is no radiopaque foreign body. IMPRESSION: 1. Complete interval healing of prior distal fibular fracture. 2. Additional radiographic evaluation of the right ankle is unremarkable. Dictated by: Dictated on workstation # [id number]
== END ==
LOC: ORTHO 10:43
PROVIDERS: ATTEND Orthopaedic Surgery
DX: S82.64XD Nondisplaced fracture of lateral malleolus of right fibula, subsequent encounter for closed fracture with routine healing (principal); X58.XXXD Exposure to other specified factors, subsequent encounter
CPT/HCPCS: 73610; G0463; 99213

== ENCOUNTER 2022-06-26 12:57 | Outpatient (RCR) | payer MEDICAID ==
[~2022-06-26] VITALS: Ht 154 cm; Wt 81.8 kg
[2022-06-26 13:11] VITALS: BP 136/67
== END 2022-07-09 | disposition home or self-care (01) ==
LOC: SDC 12:57
PROVIDERS: ATTEND Nurse Practitioner Family
DX: Z45.2 Encounter for adjustment and management of vascular access device (principal)
CPT/HCPCS: 96523

== ENCOUNTER → 2022-10-14 | Outpatient (CLI) | payer MEDICAID ==
[~2022-10-14] VITALS: Ht 154 cm; Wt 90.9 kg
[2022-10-14 14:33] VITALS: BP 158/101
[2022-10-14 14:56] LABS: BASOPHILS # (AUTO) 0.1 10^3/uL (0.0-0.1); BASOPHILS % (AUTO) 1 % (0-10); EOSINOPHILS # (AUTO) 0.1 10^3/uL (0.0-0.3); EOSINOPHILS % (AUTO) 2 % (0-10); HEMATOCRIT 37 % (35-52); HEMOGLOBIN 11.1 g/dL (11.5-16.0); LYMPHOCYTES # (AUTO) 2.5 10^3/uL (1.0-4.0); LYMPHOCYTES % (AUTO) 39 % (12-44); MEAN CORPUSCULAR HEMOGLOBIN 22 pg (25-34); MEAN CORPUSCULAR HGB CONC 30 g/dL (32-36); MEAN CORPUSCULAR VOLUME 75 fL (80-99); MONOCYTES # (AUTO) 0.6 10^3/uL (0.0-1.0); MONOCYTES % (AUTO) 10 % (0-12); NEUTROPHILS # (AUTO) 3.1 10^3/uL (1.8-7.8); NEUTROPHILS % (AUTO) 48 % (42-75); PLATELET COUNT 299 10^3/uL (130-400); WHITE BLOOD COUNT 6.5 10^3/uL (4.3-11.0)
[2022-10-14 15:10] LABS: ALBUMIN 4.2 GM/DL (3.2-4.5); BILIRUBIN,TOTAL 0.2 MG/DL (0.1-1.0); CALCIUM 8.9 MG/DL (8.5-10.1); CREATININE SERUM 0.85 MG/DL (0.60-1.30); TOTAL PROTEIN 7.9 GM/DL (6.4-8.2)
[2022-10-14 22:13] LABS: HEPATITIS C ANTIBODY C Reactive (Non-Reactive)
== END ==
LOC: SDC 13:49
PROVIDERS: ATTEND Family Medicine
DX: B18.2 Chronic viral hepatitis C (principal); I10 Essential (primary) hypertension; Z76.89 Persons encountering health services in other specified circumstances
CPT/HCPCS: 36415; 36591; 80053; 80061; 80074; 82652; 84443; 85025

== ENCOUNTER 2023-01-03 14:54 | Emergency (ER) | payer MEDICAID ==
[~2023-01-03] VITALS: Ht 154.1 cm; Wt 86.0 kg
[2023-01-03 15:15] LABS: BASOPHILS % (AUTO) 1 % (0-10); EOSINOPHILS % (AUTO) 1 % (0-10); HEMATOCRIT 39 % (35-52); HEMOGLOBIN 11.1 g/dL (11.5-16.0); LYMPHOCYTES # (AUTO) 2.2 10^3/uL (1.0-4.0); LYMPHOCYTES % (AUTO) 30 % (12-44); MEAN CORPUSCULAR HEMOGLOBIN 21 pg (25-34); MEAN CORPUSCULAR HGB CONC 29 g/dL (32-36); MEAN CORPUSCULAR VOLUME 74 fL (80-99); MONOCYTES # (AUTO) 0.5 10^3/uL (0.0-1.0); MONOCYTES % (AUTO) 7 % (0-12); NEUTROPHILS # (AUTO) 4.5 10^3/uL (1.8-7.8); NEUTROPHILS % (AUTO) 62 % (42-75); PLATELET COUNT 393 10^3/uL (130-400); WHITE BLOOD COUNT 7.3 10^3/uL (4.3-11.0)
--- NOTE | 2023-01-03 15:17 | ED Respiratory ---
General Chief Complaint: Respiratory Problems Stated Complaint: DIFFICULTY BREATHING | RECENT COLLAPSED LUNG Source: patient, old records, spouse Exam Limitations: other (PT AND BOTH TALK NON-STOP AT THE SAME TIME--BOTH TALK RAPIDLY AND SOMEWHAT ERRATICALLY. THEY ARE BOTH VERY PLEASANT, AND RESPECTFUL TO STAFF. 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 UNSUCCESSFUL. HAS FOLLOW UP APPOINTMENT AT 01/09/23 PT IS NOT COVID OR FLU VACCINATED PT SMOKES > 2 PPD LONG HISTORY OF IV METH USE, THC USE, RX DRUG USE ETOH--"OCCASIONAL" USE, HX OF HEAVY USE/ABUSE [facility] Allergies and Home Medications Allergies Coded Allergies: methotrexate (Verified Allergy, Severe, SEIZURE, 08/24/18) nitrofurantoin (Verified Allergy, Mild, 08/24/18) ziprasidone (Verified Allergy, Mild, 08/24/18) aripiprazole (Verified Adverse Reaction, Intermediate, TONGUE SWELLING, 08/24/18) Patient Home Medication List Home Medication List Reviewed: Yes Albuterol Sulfate (Proventil Hfa) 6.7 Gm Hfa.aer.ad, 2 PUFF INH Q4H PRN for SHORTNESS OF BREATH, (Reported) Entered as Reported by: FÁTIMA DE SANTIAGO on 01/14/19 1455 Albuterol Sulfate (Ventolin Hfa) 90 Mcg Hfa.aer.ad, 2 PUFF IH Q4H Prescribed by: KRIS WHALEN on 01/03/23 1704 Alprazolam (Alprazolam) 0.5 Mg Tablet, 0.5 MG PO TID PRN for ANXIETY, (Reported) Entered as Reported by: FÁTIMA DE SANTIAGO on 01/14/19 1455 Amlodipine Besylate (Amlodipine Besylate) 5 Mg Tablet, 5 MG PO DAILY, (Reported) Entered as Reported by: FÁTIMA DE SANTIAGO on 01/14/19 145 Aspirin/Acetaminophen/Caffeine (Excedrin Migraine Caplet) 1 Each Tablet, 1-2 TAB PO BID PRN for Headache, (Reported) Entered as Reported by: FÁTIMA DE SANTIAGO on 01/14/19 145 Atenolol (Atenolol) 50 Mg Tablet, 50 MG PO DAILY, (Reported) Entered as Reported by: FÁTIMA DE SANTIAGO on 01/14/19 145 Benzonatate (Tessalon Perles) 100 Mg Capsule, 200 MG PO TID Prescribed by: KRIS WHALEN on 01/03/23 170 Cefdinir (Cefdinir) 300 Mg Capsule, 300 MG PO BID Prescribed by: KRIS WHALEN on 01/03/23 170 Guaifenesin/Dextromethorphan (Mucinex Dm ER 1,200-60 mg Tab) 1,200 Mg-60 Mg Tbmp.12hr, 1 EACH PO BID Prescribed by: KRIS WHALEN on 01/03/23 170 Loperamide HCl (Loperamide) 2 Mg Tablet, 4 MG PO Q4H PRN for DIARRHEA Prescribed by: PAULA VILLAR on 02/02/20 162 Naloxone HCl (Narcan) 4 Mg [place], 1 SPRAY NS UD PRN for OVERDOSE, (Reported) Entered as Reported by: FÁTIMA DE SANTIAGO on 01/14/19 1504 Omeprazole (Omeprazole) 40 Mg Capsule.dr, 40 MG PO DAILY, (Reported) Entered as Reported by: FÁTIMA DE SANTIAGO on 01/14/19 145 Ondansetron (Ondansetron Odt) 4 Mg Tab.rapdis, 4 MG PO Q6H PRN for NAUSEA/VOMITING Prescribed by: PAULA VILLAR on 02/02/20 162 Tramadol HCl (Tramadol HCl) 50 Mg Tablet, 50 MG PO TID PRN for PAIN-MODERATE, (Reported) Entered as Reported by: FÁTIMA DE SANTIAGO on 01/14/19 145 Review of Systems Review of Systems Constitutional: no symptoms reported EENTM: no symptoms reported Respiratory: see HPI, cough, short of breath Cardiovascular: no symptoms reported Gastrointestinal: no symptoms reported Genitourinary: no symptoms reported Musculoskeletal: no symptoms reported Skin: no symptoms reported Psychiatric/Neurological: No Symptoms Reported Hematologic/Lymphatic: No Symptoms Reported Immunological/Allergic: no symptoms reported Past Ztlzdny-Qjfunz-Nussng Hx Patient Social History Tobacco Use?: Yes Tobacco type used: Cigarettes Smoking Status: Current Everyday Smoker Substance use?: Yes Substance type: Amphetamines, Methamphetamine, Misuse of prescript meds, Marijuana Immunizations Up To Date Tetanus Booster (TDap): Less than 5yrs PED Vaccines UTD: No Seasonal Allergies Seasonal Allergies: No Past Medical History Surgeries: Yes (LUMPECTOMY;R CHEST TUBE/PNEUMOTHORAX;PORT-REM;CARDIAC CATH 2009-NO INTERVEN) Adenoidectomy, Breast, Cardiac, Gallbladder, 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, Oophorectomy, Tonsillectomy, Vascular Surgery Respiratory: Yes (SPONTANEOUS RIGHT PNEUMOTHORAX;CHEST TUBE) Pneumonia, Chronic Bronchitis, COPD Cardiac: Yes (CARDIAC CATH 2009-NO INTERVENTION) Hypertension Neurological: Yes Concussion, Headaches /Migraines, Seizure Disorder, Stroke, Traumatic Brain Injury 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 Disorders: No 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: 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, Menopausal Sexually Transmitted Disease: No Genitourinary: Yes Bladder Infection, Kidney Stones Gastrointestinal: Yes (HEPATITIS C --NO TREATMENT) Gastroesophageal Reflux, Liver Disease/Jaundice, Chronic Constipation, Pancreatitis, Chronic Diarrhea, Hepatitis, Ulcer Musculoskeletal: Yes (LEFT WRIST FRACTURE/NO SURGERY-CHRONIC DEFORMITY) Degenerate Disk Disease, Arthritis, Fibromyalgia, Back Injury, Chronic Back Pain, Fractures Endocrine: No HEENT: Yes (EDENTULOUS, READING GLASSES) Loss of Vision: Bilateral Hearing Impairment: Denies Cancer: No Psychosocial: Yes (HX OF POLYSUBSTANCE ABUSE) Anxiety, Bipolar, Depression Integumentary: No Blood Disorders: No Family Medical History No Pertinent Family Hx SOCIAL HISTORY: -SMOKES > 2 PPD -ETOH--HISTORY OF ABUSE/HEAVY USE, NOW ONLY DRINKS "OCCASIONALLY" -DRUGS--HX OF IV METH USE, NARCOTIC ABUSE, THC USE PAST SURGICAL HISTORY: -BREAST LUMPECTOMY--BENIGN -RIGHT CHEST TUBE FOR SPONTANEOUS PNEUMOTHORAX -PORT LEFT CHEST FOR POOR VENOUS ACCESS -CARDIAC CATH 2009--NO INTERVENTION -CHOLECYSTECTOMY -HYSTERECTOMY / BILATERAL SALPINGO-OOPHORECTOMY -TONSILLECTOMY / ADENOIDECTOMY LONG HISTORY OF NON -COMPLIANCE IN ALL ASPECTS OF CARE Physical Exam Vital Signs - First Documented 01/03/23 15:01 Temp 37.0 Pulse 120 Resp 20 B/P (MAP) 167/105 (125) Pulse Ox 94 O2 Delivery Room Air Capillary Refill : Height: 5'1.00" Weight: 182lbs. 0.0oz. 82.093789om; 33.00 BMI Method:Actual General Appearance: WD/WN, no apparent distress, obese, other (DOES NOT APPEAR ILL OR TO BE IN ANY DISCOMFORT OR DISTRESS. CONSTANT MOVEMENTS; SPEECH RAPID AND ERRATIC. ) HEENT: PERRL/EOMI, other (EDENTULOUS) Neck: normal inspection Respiratory: no respiratory distress, no accessory muscle use, expiration (FORCED EXPIRATORY WHEEZING BILATERALLY) Cardiovascular: no edema, no JVD, no murmur, tachycardia Gastrointestinal: non tender, soft Extremities: normal inspection, normal capillary refill Neurologic/Psychiatric: electric distribution checker II-XII nml as tested, no motor/sensory deficits, alert, normal mood/affect, oriented x 3 Skin: normal color, warm/dry Progress/Results/Core Measures Suspected Sepsis SIRS Temperature: Pulse: Respiratory Rate: Laboratory Tests 01/03/23 15:08: White Blood Count 7.3 Blood Pressure / Mean: Laboratory Tests 01/03/23 15:08: Creatinine 0.86, INR Comment 1.0, Platelet Count 393, Total Bilirubin 0.4 Results/Orders Lab Results Laboratory Tests Test 01/03/23 15:04 01/03/23 15:08 01/03/23 15:18 Range/Units Influenza Type A (RT-PCR) Not Detected Not Detecte Influenza Type B (RT-PCR) Not Detected Not Detecte SARS-CoV-2 RNA (RT-PCR) Not Detected Not Detecte White Blood Count 7.3 4.3-11.0 10^3/uL Red Blood Count 5.19 H 3.80-5.11 10^6/uL Hemoglobin 11.1 L 11.5-16.0 g/dL Hematocrit 39 35-52 % Mean Corpuscular Volume 74 L 80-99 fL Mean Corpuscular Hemoglobin 21 L 25-34 pg Mean Corpuscular Hemoglobin Concent 29 L 32-36 g/dL Red Cell Distribution Width 20.4 H 10.0-14.5 % Platelet Count 393 130-400 10^3/uL Mean Platelet Volume 10.0 9.0-12.2 fL Immature Granulocyte % (Auto) 0 % Neutrophils (%) (Auto) 62 42-75 % Lymphocytes (%) (Auto) 30 12-44 % Monocytes (%) (Auto) 7 0-12 % Eosinophils (%) (Auto) 1 0-10 % Basophils (%) (Auto) 1 0-10 % Neutrophils # (Auto) 4.5 1.8-7.8 10^3/uL Lymphocytes # (Auto) 2.2 1.0-4.0 10^3/uL Monocytes # (Auto) 0.5 0.0-1.0 10^3/uL Eosinophils # (Auto) 0.0 0.0-0.3 10^3/uL Basophils # (Auto) 0.0 0.0-0.1 10^3/uL Immature Granulocyte # (Auto) 0.0 0.0-0.1 10^3/uL Erythrocyte Sedimentation Rate 27 0-30 MM/HR Prothrombin Time 13.2 12.2-14.7 SEC INR Comment 1.0 0.8-1.4 Activated Partial Thromboplast Time 32 24-35 SEC D-Dimer 0.81 H 0.00-0.49 UG/ML Sodium Level 141 135-145 MMOL/L Potassium Level 3.8 3.6-5.0 MMOL/L Chloride Level 106 98-107 MMOL/L Carbon Dioxide Level 22 21-32 MMOL/L Anion Gap 13 5-14 MMOL/L Blood Urea Nitrogen 11 7-18 MG/DL Creatinine 0.86 0.60-1.30 MG/DL Estimat Glomerular Filtration Rate 80 BUN/Creatinine Ratio 13 Glucose Level 131 H 70-105 MG/DL Calcium Level 9.4 8.5-10.1 MG/DL Corrected Calcium 9.2 8.5-10.1 MG/DL Magnesium Level 2.3 1.6-2.4 MG/DL Total Bilirubin 0.4 0.1-1.0 MG/DL Aspartate Amino Transf (AST/SGOT) 28 5-34 U/L Alanine Aminotransferase (ALT/SGPT) 33 0-55 U/L Alkaline Phosphatase 133 40-136 U/L Total Creatine Kinase 57 29-168 U/L Creatine Kinase MB 1.2 <6.6 NG/ML Myoglobin 28.9 10.0-92.0 NG/ML Troponin I < 0.028 <0.028 NG/ML C-Reactive Protein High Sensitivity 0.13 0.00-0.50 MG/DL B-Type Natriuretic Peptide < 10.0 <100.0 PG/ML Total Protein 8.0 6.4-8.2 GM/DL Albumin 4.3 3.2-4.5 GM/DL Serum Test, Qualitative NEGATIVE NEGATIVE Serum Alcohol < 10 <10 MG/DL Urine Color YELLOW Urine Clarity SL CLOUDY Urine pH 5.5 5-9 Urine Specific [place] 1.025 H 1.016-1.022 Urine Protein NEGATIVE NEGATIVE Urine Glucose (UA) NEGATIVE NEGATIVE Urine Ketones NEGATIVE NEGATIVE Urine Nitrite NEGATIVE NEGATIVE Urine Bilirubin NEGATIVE NEGATIVE Urine Urobilinogen 0.2 < = 1.0 MG/DL Urine Leukocyte Esterase 1+ H NEGATIVE Urine RBC (Auto) NEGATIVE NEGATIVE Urine RBC 0-2 /HPF Urine WBC 5-10 H /HPF Urine Squamous Epithelial Cells 10-25 H /HPF Urine Crystals NONE /LPF Urine Bacteria MODERATE H /HPF Urine Casts NONE /LPF Urine Mucus MODERATE H /LPF Urine Culture Indicated YES Urine Opiates Screen NEGATIVE NEGATIVE Urine Oxycodone Screen NEGATIVE NEGATIVE Urine Methadone Screen NEGATIVE NEGATIVE Urine Propoxyphene Screen NEGATIVE NEGATIVE Urine Barbiturates Screen NEGATIVE NEGATIVE Ur Tricyclic Antidepressants Screen NEGATIVE NEGATIVE Urine Phencyclidine Screen NEGATIVE NEGATIVE Urine Amphetamines Screen POSITIVE H NEGATIVE Urine Methamphetamines Screen POSITIVE H NEGATIVE Urine Benzodiazepines Screen POSITIVE H NEGATIVE Urine Cocaine Screen NEGATIVE NEGATIVE Urine Cannabinoids Screen POSITIVE H NEGATIVE My Orders Orders - KRIS WHALEN DO Ed Iv/Invasive Line Start (01/03/23 15:03) Ekg Tracing (01/03/23 15:03) Monitor-Rhythm Ecg Trace Only (01/03/23 15:03) Alcohol (01/03/23 15:03) Bnp Rains (01/03/23 15:03) Cbc With Automated Diff (01/03/23 15:03) Comprehensive Metabolic Panel (01/03/23 15:03) Creatine Kinase (01/03/23 15:03) Creatine Kinase Mb (01/03/23 15:03) Hs C Reactive Protein (01/03/23 15:03) Fibrin Degradation Products (01/03/23 15:03) Drug Screen Stat (Urine) (01/03/23 15:03) Hcg,Qualitative Serum (01/03/23 15:03) Magnesium (01/03/23 15:03) Protime With Inr (01/03/23 15:03) Partial Thromboplastin Time (01/03/23 15:03) Ua Culture If Indicated (01/03/23 15:03) Erythrocyte Sedimentation Rate (01/03/23 15:03) Myoglobin Serum (01/03/23 15:03) Troponin I Rains (01/03/23 15:03) Chest 1 View, Ap/Pa Only (01/03/23 15:03) Covid 19 Inhouse Test (01/03/23 15:03) Influenza A And B By Pcr (01/03/23 15:03) Ed Iv/Invasive Line Start (01/03/23 15:32) Lactated Ringers 1,000 Ml (Lactated Ring (01/03/23 15:45) Urine Culture (01/03/23 15:18) Ct Angio Chest W (R/O Pe) (01/03/23 15:42) Ceftriaxone Iv/Im (Ceftriaxone Iv/Im) (01/03/23 15:45) Iohexol Injection (Omnipaque 350 Mg/Ml 1 (01/03/23 16:00) Received Contrast (Hold Metformin- Contr (01/03/23 16:00) Ns (Ivpb) 100 Ml (Sodium Chloride 0.9% 1 (01/03/23 16:00) Medications Given in ED Current Medications Medications Dose Ordered Sig/Rene Route Start Time Stop Time Status Last Admin Dose Admin Ceftriaxone Sodium 1000 mg/ Sodium Chloride 50 ml @ 100 mls/hr ONCE ONCE IV 01/03/23 15:45 01/03/23 16:14 DC 01/03/23 16:58 100 MLS/HR Iohexol 100 ml ONCE ONCE IV 01/03/23 16:00 01/03/23 16:01 DC 01/03/23 16:20 72 ML Lactated Ringer's 1,000 ml @ 0 mls/hr Q0M ONCE IV 01/03/23 15:45 01/03/23 15:46 DC 01/03/23 15:38 0 MLS/HR Sodium Chloride 100 ml ONCE ONCE IV 01/03/23 16:00 01/03/23 16:01 DC 01/03/23 16:20 80 ML Vital Signs/I&O 01/03/23 01/03/23 15:01 17:05 Temp 37.0 Pulse 120 107 Resp 20 20 B/P (MAP) 167/105 (125) 186/113 Pulse Ox 94 94 O2 Delivery Room Air Room Air Capillary Refill : Progress Note : Progress Note PPE WORN COVID AND FLU TESTING DONE VITALS ON ARRIVAL: TEMP 37.0=98.6, HR 120, RR 20, BP 167/105, O2 SAT 94% ON ROOM AIR GIVEN: -IV FLUIDS -ROCEPHIN NO DETERIORATION IN PT'S CONDITION DURING ER STAY SPACER SENT HOME WITH PT AND INSTRUCTED ON USE DISCUSSED TEST RESULTS, ANTICIPATED COURSE, SYMPTOMATIC TREATMENT, MEDICATIONS, NEED FOR FOLLOW UP AND RETURN PRECAUTIONS ALSO DISCUSSED AVOIDING DRUGS AND NO SMOKING OR VAPING OF ANYTHING REVIEWED PRIOR RECORDS-- ER VISITS, ADMITS/H&P'S/CONSULTS/DISCHARGE SUMMARIES, TESTS/PROCEDURES ECG Initial ECG Impression Date: Jan 03, 2023 Initial ECG Impression Time: 15:13 Initial ECG Rate: 106 Initial ECG Rhythm: S.Tach Initial ECG Intervals: Normal Initial ECG Impression: Nonspecific Changes Initial ECG Comparisson: Unchanged Comment INTERPRETED BY ME Diagnostic Imaging Comments CXR--PER RADIOLOGIST REPORT AT 1542 FINDINGS: The lungs are clear without edema or pneumonia. No pleural effusion or pneumothorax. Heart size is normal. IMPRESSION: 1. Clear lungs. CT CHEST ANGIOGRAM--PER RADIOLOGIST REPORT AT 1654 Findings: There is a subcentimeter calcified right lower lobe granuloma. There is no identified pulmonary nodule or lung mass. There is no pneumothorax. There is no pleural effusion. There is no identified pulmonary embolus. The heart is not enlarged. There is no pericardial effusion. There is no abnormally enlarged mediastinal, hilar, or axillary lymph node meeting CT size criteria for adenopathy. The gallbladder surgically absent. There are degenerative changes of the spine. There are chronic appearing compression deformities at the levels of T11 and L1. These are stable since at least July 14, 2018. Impression: 1. No identified pulmonary embolus or other acute cardiopulmonary abnormality. Reviewed: Reviewed by Me Departure Impression Primary Impression: UTI (urinary tract infection) Additional Impressions: Bronchitis Illicit drug use Disposition: 01 HOME, SELF-CARE Condition: Stable Departure-Patient Inst. Decision time for Depature: 16:54 Referrals: STEPHEN SALAZAR MD (PCP/Family) Primary Care Physician Patient Instructions: Acute Bronchitis, Adult (DC), Substance Use Disorder ED, Urinary Tract Infection, Adult (DC) Add. Discharge Instructions: INCREASE YOUR FLUID INTAKE--WATER AND GATORADE YOU MAY TAKE TYLENOL AND MOTRIN FOR PAIN OR FEVER FOLLOW UP WITH [facility] NEXT WEEK FOR FURTHER CARE--CALL TODAY TO SCHEDULE AN APPOINTMENT All discharge instructions reviewed with patient and/or family. Voiced understanding. Scripts Albuterol Sulfate (Ventolin Hfa) 90 Mcg Hfa.aer.ad 2 PUFF IH Q4H, #1 EA 1 PUFF = 90 MCG Prov: KRIS WHALEN DO 01/03/23 Guaifenesin/Dextromethorphan (Mucinex Dm ER 1,200-60 mg Tab) 1,200 Mg-60 Mg Tbmp.12hr 1 EACH PO BID, #20 EA Prov: KRIS WHALEN DO 01/03/23 Benzonatate (TESSALON PERLES) 100 Mg Capsule 200 MG PO TID, #30 CAP Prov: KRIS WHALEN DO 01/03/23 Cefdinir (Cefdinir) 300 Mg Capsule 300 MG PO BID, #20 CAP Prov: KRIS WHALEN DO 01/03/23 KRIS WHALEN DO Jan 03, 2023 15:17
[2023-01-03 15:31] LABS: ALBUMIN 4.3 GM/DL (3.2-4.5); CHLORIDE 106 MMOL/L (98-107); POTASSIUM 3.8 MMOL/L (3.6-5.0); PROTHROMBIN TIME PATIENT 13.2 SEC (12.2-14.7); SODIUM 141 MMOL/L (135-145)
[2023-01-03 15:32] LABS: COLOR,URINE YELLOW
[2023-01-03 15:32] LABS: CALCIUM 9.4 MG/DL (8.5-10.1)
[2023-01-03 15:33] LABS: BACTERIA,URINE MODERATE /HPF; BILIRUBIN,URINE NEGATIVE (NEGATIVE); CLARITY,URINE SL CLOUDY; GLUCOSE, URINE (UA) NEGATIVE (NEGATIVE); KETONES,URINE NEGATIVE (NEGATIVE); LEUKOCYTE ESTERASE ,URINE 1+ (NEGATIVE); NITRITE,URINE NEGATIVE (NEGATIVE); PH,URINE 5.5 (5-9); PROTEIN,URINE NEGATIVE (NEGATIVE); RBC,URINE 0-2 /HPF
[2023-01-03 15:34] LABS: GLUCOSE 131 MG/DL (70-105)
[2023-01-03 15:35] LABS: BILIRUBIN,TOTAL 0.4 MG/DL (0.1-1.0); CARBON DIOXIDE 22 MMOL/L (21-32); FIBRIN DEGRADATION PRODUCTS 0.81 UG/ML (0.00-0.49)
--- NOTE | 2023-01-03 15:36 | Diagnostic Imaging Report ---
EXAMINATION: Chest, one view. HISTORY: Short of breath. COMPARISON: 12/16/2021. FINDINGS: The lungs are clear without edema or pneumonia. No pleural effusion or pneumothorax. Heart size is normal. IMPRESSION: 1. Clear lungs. Dictated by: Dictated on workstation # [id number]
[2023-01-03 15:37] LABS: ALKALINE PHOSPHATASE 133 U/L (40-136)
[2023-01-03 15:38] LABS: CREATININE SERUM 0.86 MG/DL (0.60-1.30); GFR ESTIMATED 80
[2023-01-03 15:39] LABS: BUN/CREATININE RATIO 13
[2023-01-03 15:40] LABS: ALANINE AMINOTRANSFERASE 33 U/L (0-55); MAGNESIUM 2.3 MG/DL (1.6-2.4)
[2023-01-03 15:41] LABS: CREATINE KINASE 57 U/L (29-168)
[2023-01-03 15:41] LABS: AMPHETAMINE SCREEN, URINE POSITIVE (NEGATIVE); BARBITURATE SCREEN URINE NEGATIVE (NEGATIVE); BENZODIAZEPINES SCREEN URINE POSITIVE (NEGATIVE); CANNABINOID SCREEN, URINE POSITIVE (NEGATIVE); COCAINE SCREEN URINE NEGATIVE (NEGATIVE); METHADONE STAT NEGATIVE (NEGATIVE); OPIATE SCREEN URINE NEGATIVE (NEGATIVE); OXYCODONE STAT NEGATIVE (NEGATIVE); PROPOXYPHENE STAT NEGATIVE (NEGATIVE); TRICYCLIC ANTIDEPRESSANTS SCRE NEGATIVE (NEGATIVE)
[2023-01-03 15:45] LABS: ERYTHROCYTE SEDIMENTATION RATE 27 MM/HR (0-30)
[2023-01-03] MEDS ORDERED: LACTATED RINGERS 1,000 ML 1,000 ML IV ONE (15:45)
[2023-01-03] MEDS ORDERED: cefTRIAXone IV/IM 1,000 MG in NS (IVPB) 50 ML 50 ML IV ONE (15:45)
[2023-01-03 15:47] LABS: CREATINE KINASE MB 1.2 NG/ML (<6.6)
[2023-01-03] MEDS ORDERED: IOHEXOL 350 MG/ML 100 ML (OMNIPAQUE 350) VIAL IV ONE (16:00)
[2023-01-03] MEDS ORDERED: NS 100 ML (IVPB) BAG IV ONE (16:00)
[2023-01-03] MEDS ORDERED: HOLD METFORMIN - RECEIVED CONTRAST 20 ML VIAL IV SCH (16:00)
--- NOTE | 2023-01-03 16:35 | Diagnostic Imaging Report ---
Exam: CT angiography chest with intravenous contrast. Date: January 03, 2023. Indication: 52-year-old female, dyspnea and chest pain. Recent port removal. Comparison: Chest radiograph January 03, 2023. Findings: There is a subcentimeter calcified right lower lobe granuloma. There is no identified pulmonary nodule or lung mass. There is no pneumothorax. There is no pleural effusion. There is no identified pulmonary embolus. The heart is not enlarged. There is no pericardial effusion. There is no abnormally enlarged mediastinal, hilar, or axillary lymph node meeting CT size criteria for adenopathy. The gallbladder surgically absent. There are degenerative changes of the spine. There are chronic appearing compression deformities at the levels of T11 and L1. These are stable since at least July 14, 2018. Impression: 1. No identified pulmonary embolus or other acute cardiopulmonary abnormality. Dictated by: Dictated on workstation # [id number]
[2023-01-03] MEDS ORDERED: BENZ100C18 PO ×2 (17:01→17:04)
[2023-01-03] MEDS ORDERED: CEFD300C3 PO ×2 (17:01→17:04)
[2023-01-03] MEDS ORDERED: GUAI1TBM19 PO ×2 (17:01→17:04)
[2023-01-03] MEDS ORDERED: ALBU8.5H6 IH ×2 (17:01→17:04)
[2023-01-03 17:05] VITALS: BP 186/113
== END 2023-01-03 17:05 ==
LOC: EDUNIT# 14:54 → ER 14:56
DX: J44.9 Chronic obstructive pulmonary disease, unspecified (principal); N39.0 Urinary tract infection, site not specified; F19.90 Other psychoactive substance use, unspecified, uncomplicated; F17.210 Nicotine dependence, cigarettes, uncomplicated; Z88.1 Allergy status to other antibiotic agents; Z28.310 Unvaccinated for COVID-19; Z20.822 Contact with and (suspected) exposure to COVID-19
CPT/HCPCS: 71045; 71275; 80053; 80306; 81000; 82550; 82553; 83735; 83874; 83880; 84484; 84703; 85025; 85379; 85610; 85652; 85730; 86141; 87088; 87636; 99284; G0480; 36415; 80320; 93005